=== PATIENT | male | born 1940 | race Caucasian/White ===

== ENCOUNTER → 2017-11-24 | Outpatient (CLI) | payer OTHER ==
[~2017-11-24] MED LIST: ASPI81TA28 PO; BISA1TAB15 PO; CETI10TA84 PO; CHOL100010 PO; DIPH-437 PO; NRV/10 PO; OXYC-57 PO; PRLSR20 PO; SPR25 PO; TRIA1SPR2 NAE; VALS160T58 PO; VITA100C4 PO
[2017-11-28 02:23] LABS: ANA SCREEN TC 249X POSITIVE (NEGATIVE); ANTI-SS-A <1.0 NEG AI (<1.0 NEG); ANTI-SS-B <1.0 NEG AI (<1.0 NEG); ANTICARDIOLIPID AB IGA <11 APL (< = 11); COMPLEMENT C3 TC 44859W 117 MG/DL (90-180); COMPLEMENT C4 TC 44982E 23 MG/DL (16-47); MICROSOMAL AB <1 IU/ML (<9)
[2017-11-28 14:51] LABS: ANA TITER > OR = 1:1280 TITER (<1:40)
== END | disposition home or self-care (01) ==
LOC: C.LAB1850 11:51
PROVIDERS: ATTEND Internal Medicine Infectious Disease
DX: M13.0 Polyarthritis, unspecified (principal)

== ENCOUNTER 2019-06-02 07:14 | Inpatient (IN) ==
--- NOTE | 2019-05-05 16:16 | PAT Medication Instructions ---
Medication Instructions Date of Service May 05, 2019 Home Medications acetaminophen [Tylenol Arthritis Pain] 650 mg PO Q12H PRN aspirin 81 mg PO 2XWK cetirizine [Zyrtec] 5 mg PO DAILY PRN cholecalciferol (vitamin D3) [Vitamin D3] 1,000 unit PO QAM ferrous sulfate [iron] 325 mg PO QAM hydrochlorothiazide 12.5 mg PO QAM losartan [Cozaar] 50 mg PO QAM oxycodone-acetaminophen [Percocet] 1 tab PO Q6H PRN triamcinolone acetonide [Nasacort] 1 spray INTRANASAL DAILY PRN turmeric 400 mg PO QAM vitamin A-vitamin C-vit E-min [Vision] 1 tab PO QAM ASK your prescriber and surgeon aspirin 81 mg PO 2XWK STOP taking 2 weeks before surgery (or as soon as possible if surgery is within 2 weeks) turmeric 400 mg PO QAM vitamin A-vitamin C-vit E-min [Vision] 1 tab PO QAM DO NOT take the morning of surgery cetirizine [Zyrtec] 5 mg PO DAILY PRN cholecalciferol (vitamin D3) [Vitamin D3] 1,000 unit PO QAM ferrous sulfate [iron] 325 mg PO QAM hydrochlorothiazide 12.5 mg PO QAM losartan [Cozaar] 50 mg PO QAM Take morning of surgery With a small sip of water, OTHERWISE NOTHING TO EAT OR DRINK AFTER MIDNIGHT: acetaminophen [Tylenol Arthritis Pain] 650 mg PO Q12H PRN (okay to take up to 4 hours prior to surgery if needed) oxycodone-acetaminophen [Percocet] 1 tab PO Q6H PRN (okay to take up to 4 hours prior to surgery if needed) triamcinolone acetonide [Nasacort] 1 spray INTRANASAL DAILY PRN (if needed) Take evening before surgery acetaminophen [Tylenol Arthritis Pain] 650 mg PO Q12H PRN (if needed) cetirizine [Zyrtec] 5 mg PO DAILY PRN (if needed) oxycodone-acetaminophen [Percocet] 1 tab PO Q6H PRN (if needed) triamcinolone acetonide [Nasacort] 1 spray INTRANASAL DAILY PRN(if needed) Other Notes If you have any questions please call us at [phone] or [phone] or [phone] or [phone]
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
[2019-05-06 13:17] LABS: Appearance Urine Clear (Clear); Bilirubin Urine Negative (Negative); Blood Urine Negative (Negative); Color Urine Yellow; Glucose Urine UA Negative (Negative); Ketones Urine Trace (Negative); Leukocyte Esterase Urine Negative (Negative); Nitrite Urine Negative (Negative); Protein Urine Negative (Negative); Specific Gravity Urine 1.022 (1.000-1.030); Urobilinogen Urine Negative (Negative); pH Urine 5.5 (4.5-7.5)
[2019-05-06 13:25] LABS: Albumin Level 3.8 gm/dl (3.4-5.0); BUN Creatinine Ratio 13.6 (10-20); Calcium 8.7 mg/dl (8.5-10.1); Creatinine Clr Calc Pharmacy 44.2 ml/min; Est GFR (African American) 53.2; Est GFR (Non-African American) 45.9; Potassium 3.7 mmol/L (3.5-5.1)
[2019-05-06 13:29] LABS: INR 1.1 (0.9-1.1); Partial Thromboplastin Time 26.2 Seconds (21.0-31.0); Prothrombin Time 10.8 Seconds (9.0-12.0)
--- NOTE | 2019-05-06 13:29 | XRay Report ---
TWO VIEW CHEST CLINICAL HISTORY: Preoperative examination. FINDINGS: PA and lateral chest radiographs are compared to study dated 06/05/2011 and correlated with chest CT dated 12/01/2014. The heart is mildly enlarged noting atherosclerotic calcification of the th oracic aorta. The pulmonary vasculature is noncongested. Chronic interstitial thickening is similar t o previous. There are foci of scarring/atelectasis present bilaterally. No airspace consolidation is seen typical for pneumonia and there is no pleural effusion. There is no pneumothorax. The skeletal s tructures are osteopenic. There are numerous healed left-sided rib fractures. Advanced degenerative c hange is noted in the shoulders. Arthritic change is also seen in the thoracic spine. A bone island i s again noted in the left 2nd rib. There are numerous tiny metallic foreign bodies scattered througho ut the lower neck and chest. IMPRESSION: 1. Cardiomegaly and chronic parenchymal changes as above with no acute cardiopulmonary abnormality id entified. 2. Numerous tiny metallic foreign bodies are again seen scattered throughout the chest and lower neck . Electronically signed by: Meet Heaton M.D. 05/06/2019 1:28 PM
[2019-05-06 13:34] LABS: Estimated Average Glucose 131 mg/dl; Hemoglobin A1C 6.2 % (4.5-5.6)
[2019-05-06 14:10] LABS: Hematocrit (blood only) 38.8 % (42-52); Hemoglobin 11.5 g/dL (14.0-18.0); Mean Corpuscular Hemoglobin 30.2 pg (25-34); Mean Corpuscular Hgb Conc 29.6 g/dL (32-36); Mean Corpuscular Volume 101.8 fL (80-100); Mean Platelet Volume 9.3 fL (7.4-10.4); Platelet Count 185 K/uL (130-400); RDW Coefficient of Variation 15.3 % (11.5-14.5); RDW Standard Deviation 52.4 fL (36.4-46.3); Red Blood Count 3.81 M/uL (4.7-6.1); White Blood Count 194.06 K/uL (4.8-10.8)
[2019-05-06 14:12] LABS: Basophils # (auto) 0.72 K/uL (0-0.2); Basophils % (auto) 0.4 %; Eosinophils # (auto) 0.12 K/uL (0-0.5); Eosinophils % (auto) 0.1 %; Immature Granulocytes # (auto) 0.14 K/uL (0.00-0.02); Immature Granulocytes % (auto) 0.1 %; Lymphocytes # (auto) 187.37 K/uL (1.2-3.4); Lymphocytes % (auto) 96.6 %; Monocytes % (auto) 1.7 %; Neutrophils # (auto) 2.41 K/uL (1.4-6.5); Neutrophils % (auto) 1.1 %
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
--- NOTE | 2019-06-01 19:12 | History and Physical Report ---
DATE OF ADMISSION: 06/02/2019 CHIEF COMPLAINT: Chronic left shoulder pain. HISTORY OF PRESENT ILLNESS: This is a 79-year-old male patient of Dr. Guzman'annie complaining of chronic left shoulder pain, longstanding, now progressively getting worse. The patient has failed conservative treatment including pain management, intraarticular injections, physical therapy and [id number] medications. He has been diagnosed with end-stage osteoarthritis per clinical and radiographic exams. The patient wished to proceed with a left total shoulder arthroplasty. PAST MEDICAL HISTORY: Heart murmur, hypertension, history of a TIA, abnormal bleeding, osteoarthritis, spine problems, neck problems, upper back problems, sciatica, kidney stones, chronic lymphocytic leukemia. SOCIAL HISTORY: Nonsmoker, occasional drinker. FAMILY HISTORY: Noncontributory. PAST SURGICAL HISTORY: Back surgery, appendectomy, left leg surgery and deviated septum surgery. REVIEW OF SYSTEMS: Chronic left shoulder pain. Otherwise, denies any shortness of breath, chest pain, nausea, vomiting or any other joint complaints. MEDICATIONS: Aspirin 81 mg daily, Norvasc 10 mg daily, Nasacort 55 mcg nasal spray once daily in each nostril, Tylenol as needed. ALLERGIES: LEVAQUIN, PENICILLIN, ZOCOR. PHYSICAL EXAMINATION: GENERAL: Well-developed, well-nourished 79-year-old male in no acute distress. He is alert and oriented x3 and pleasant. HEENT: Normocephalic, atraumatic. Extraocular motions are intact. Pupils are equal and reactive to light. HEART: Regular rate with irregular rhythm. LUNGS: Clear. ABDOMEN: Soft and nontender. Bowel sounds present. EXTREMITIES: Left shoulder active range of motion 0-120, passively to 140. He has crepitation with passive range of motion. He has 5/5 strength with pain. NEUROLOGIC: Neurovascularly he is intact in his left upper extremity. DIAGNOSES: Left shoulder end-stage osteoarthritis, heart murmur, hypertension, history of a mini stroke, abnormal bleeding, kidney stones, chronic lymphocytic leukemia, osteoarthritis, spine problems, neck problems, upper back problems, sciatica. PLAN: The patient was advised of his diagnosis. Indications, risks, benefits, postop course have all been reviewed. The patient wished to proceed with a left total shoulder arthroplasty. Necessary consent forms, preoperative testing and clearances will be obtained.
[~2019-06-02 07:14] MED LIST changes: +ACETAMINOPHEN 500 MG TAB PO SCH; -ASPI81TA28 PO; -BISA1TAB15 PO; -CETI10TA84 PO; -CHOL100010 PO; +CeleBREX 200 MG CAP PO SCH; -DIPH-437 PO; +FAMOTIDINE 20 MG TAB PO SCH; +GABAPENTIN 300 MG CAP PO SCH; +LR 15ML/HR IV SCH; +METOCLOPRAMIDE HCL 10 MG TABLET PO SCH; -NRV/10 PO; -OXYC-57 PO; -PRLSR20 PO; +ROPIVACAINE 0.5% 5 MG/ML 30 ML VIAL ONE; -SPR25 PO; -TRIA1SPR2 NAE; -VALS160T58 PO; +VANCOMYCIN HCL 1,500 MG in SODIUM CHLORIDE 0.9% 500 ML IV SCH; -VITA100C4 PO; +dexAMETHasone 4 MG TAB PO SCH
[2019-06-02] MEDS ORDERED: MIDAZOLAM HCL 1 MG/ML 2ML VIAL ONE (08:18)
[2019-06-02] MEDS ORDERED: PROPOFOL IV EMULSION 10 MG/ML 20 ML VIAL IV ONE (08:18)
[2019-06-02] MEDS ORDERED: LIDOCAINE HCL 2% 2 ML VIAL/AMP(20MG/ML) INFIL ONE (08:18)
[2019-06-02] MEDS ORDERED: fentaNYL citrate 100 MCG/2 ML VIAL ONE (08:18)
[2019-06-02] MEDS ORDERED: ONDANSETRON INJ 2 MG/ML 2 ML VIAL ONE (08:18)
[2019-06-02] MEDS ORDERED: ROCURONIUM BROMIDE 10 MG/ML 5 ML VIAL ONE (08:18)
[2019-06-02] MEDS ORDERED: fentaNYL citrate 100 MCG/2 ML VIAL IV PRN (08:47)
[2019-06-02] MEDS ORDERED: ONDANSETRON INJ 2 MG/ML 2 ML VIAL IV PRN ×2 (08:47→14:38)
[2019-06-02] MEDS ORDERED: ATROPINE SULFATE 0.1 MG/ML 10ML SYR IV PRN (08:47)
[2019-06-02] MEDS ORDERED: ePHEDrine sulfate 50 MG/ML AMP IV PRN (08:47)
--- NOTE | 2019-06-02 09:13 | History & Physical Bridge Note ---
Date of Service June 02, 2019 History & Physical Bridge Note I have examined the patient, reviewed the History & Physical and in the interval since the performance of the History & Physical I have noted the following changes of clinical significance: no changes noted
[2019-06-02] MEDS ORDERED: BACITRACIN INJ 50,000 UNIT VIAL ONE (09:25)
[2019-06-02] MEDS ORDERED: EpINEphrine HCL INJ 1 MG/ML 1ML SYRINGE ONE (09:25)
--- NOTE | 2019-06-02 13:15 | Post Operative Brief Note ---
Immediate Post Op Note v1 Date of Surgery June 02, 2019 Pre & Post Diagnosis Operation Date: 06/02/19 10:05 Pre-Op Diagnosis: Glenohumeral osteoarthritis end-stage with bone loss glenoid, Left Shoulder Post-Op Diagnosis: Same with biceps tendinopathy bicipital groove bone spurs I identified the patient and participated in the time-out.: Yes Procedure Operation Date: 06/02/19 10:05 Actual Procedures Left Total Shoulder Arthroplasty, biceps tenodesis- Augustus Guzman MD Surgeon Augustus Guzman MD High Heel Builder Cj SMITH Estimated Blood Loss 75 Findings Consistent with Post-Op Diagnosis Specimens Humeral head cut Drains Hemovac Drain Anesthesia Type General Regional Complications none Disposition Accompanied Patient To Recovery: No Disposition: Recovery Room Overlapping Procedure I was immediately available: during the entire case.
--- NOTE | 2019-06-02 13:56 | Operative Report ---
Post Operative Report Pre & Post Diagnosis Operation Date: 06/02/19 10:05 Pre-Op Diagnosis: Left shoulder end-stage glenohumeral osteoarthritis with bone loss glenoid Post-Op Diagnosis: Same with biceps tendinopathy bicipital groove bone spurs I identified the patient and participated in the time-out.: Yes Procedure Operation Date: 06/02/19 10:05 Actual Procedures Left Total Shoulder Arthroplasty, biceps tenodesis- Augustus Guzman MD Surgeon Augustus Guzman MD Knuckle Strap Sewer Cj SMITH Estimated Blood Loss 75 Findings Consistent with Post-Op Diagnosis Specimens Humeral head cut Drains 2 Hemovac Anesthesia Type General Regional Complications none Disposition Accompanied Patient To Recovery: No Disposition: Recovery Room Indications 79-year-old male with severe bilateral shoulder osteoarthritis. Left shoulder greater than right. Radiographs demonstrate significant bone loss glenoid with B2 glenoid and large osteophytes humeral head and glenoid intact rotator cuff per CT scan. Description of Procedure The patient was taken to the operating room and anesthetized under a general and regional block anesthesia. A towel roll was placed under the medial border of the scapula of the left shoulder. The patient's head was placed on a foam headrest and protective eyewear was placed and the extremities were well padded. The arm was draped free in order to manipulate the shoulder as necessary. The shoulder exam demonstrated 0 degrees external rotation 45 degrees of abduction 90 degrees forward elevation [id number] crepitation. The shoulder was sterilely prepped and draped in the usual sterile fashion. An anterior deltopectoral approach was performed. A longitudinal incision was made in the interval. The skin was incised sharply and subcutaneous tissues dissected down to the fascia. The cephalic vein was identified and retracted laterally with the deltoid. Any crossing veins were tied off with silk ties and divided. The clavipectoral fascia was divided at the lateral margin of the conjoined tendon and divided up to the level of the coracoacromial ligament which was preserved. The upper 1 cm of the pectoralis was released for inferior exposure. The biceps tendon findings demonstrated chronic biceps tenosynovitis there was a large thick falciform ligament over the biceps. Proximally there was bicipital bones spurs in the bicipital groove enveloping the biceps tendon and intra-articularly widened biceps tendon with tendinopathy. The rotator cuff tendon findings demonstrated intact rotator cuff. The circumflex vessels were identified and tied off with silk ties and divided laterally. The fibers and subscapularis were split longitudinally at the level of the circumflex vessels down to the capsule and then reflected off the inferior capsule using a Kitner elevator. The axillary nerve was identified with a tug test and protected with a blunt Gabriella retractor. The rotator interval was opened up and extended down to the glenoid. The biceps tendon was identified and tenodesed to the pectoralis tendon with [id number] #2 FiberWire sutures in the proximal biceps was resected. The subscapularis tendon was taken down with a trans-tendinous incision leaving a cuff of tissue for repair on the lesser tuberosity. The incision was carried down to the tendon and the capsule and a #1 Vicryl suture was placed into the free end of the subscapularis tendon. The capsule was subperiosteally dissected off the inferior neck of the humerus exposing the mateusz ral osteophytes which demonstrated massive inferior humeral osteophytes extending from anterior to posterior also some superior osteophytes. The osteophytes were excised with an artist chisel and a rongeur. The capsular release along the inferior neck of the humerus was completed. The humerus was then retracted posterior to the glenoid with a Fukuda retractor. The remainder of the biceps tendon and labrum was resected. The glenoid findings demonstrated marked flattening of the glenoid completely eburnated bone posterior bone loss consistent with CT scan preop. I did an anterior inferior and posterior inferior release with electrocautery on bone and a Warren elevator with the axillary nerve continuing to be protected with the blunt Hohmann retractor inferiorly. When the releases were completed and the humeral head was exposed with some extension and external rotation and in anatomic head cut was made using the oscillating saw. The humeral head findings demonstrated flattening of the humeral head with some bone loss. The humerus was then prepared for the stem. I used the ascend flex stem. Sizing broaches up to a size 5 were placed and then broaches up to a size 5 were inserted followed by a cut protector. The humeral head was then retracted posterior to the glenoid with Hohmann retractors and Bankart retractor placed anteriorly. The custom guide made by blueprint CT scan imaging was placed on the glenoid matching the placement on the model. The central drill pin was drilled. The reamers were used to ream the Paleo and milan- glenoid. 35 degree wedge was used posteriorly to accommodate the bone loss. The peripheral peg holes were made to the guide and the central drill hole was made. Trial reduction demonstrated good stability of the trial. The glenoid was copiously irrigated and epinephrine soaked tampon sponges were placed into the holes. Palacos G cement was vacuum mixed. The extra-large 40 radius 35 degree augmented left Cortiloc perform glenoid component was then cemented in position central peg press-fit peripheral pegs cemented backside cemented. Pressure was held until the cement cured. A size 52 x 23 high offset trial humeral head was then used. It was rotated into appropriate position. A trial reduction was performed and the shoulder was stable. The trial was removed and the humerus and canal were irrigated with antibiotic solution with bacitracin. 3 drill holes were made into the hard bone in the bicipital groove lateral to the lesser tuberosity and 3 #5 FiberWire transosseous sutures were placed for repair of the subscapularis. After further irrigation of the canal and the final components were assembled. The final components were the ascend flex standard 5B humeral stem assembled to the aequalis 52 x 23 high offset humeral head. The implant was then impacted into the humerus with a tight press-fit. The humerus was reduced to the glenoid and stability verified. The subscapularis was repaired with the #5 FiberWire sutures in a Branden-Daniel suture technique and lateral row fixation with [id number] #2 FiberWire in the soft tissue. The rotator interval was closed and maximal external rotation. The pectoralis was then closed with [id number] #2 FiberWire suture. Sutures were passed through the biceps tendon to reinforce the biceps tenodesis. The arm was taken through range of motion and there was 100 degrees of forward elevation 90 degrees of abduction and 20 degrees external rotation without tension on repair. 2 Hemovac drains were placed. The deltopectoral interval was closed with [id number] #1 Vicryl sutures. The subcutaneous tissues were closed with interrupted 2-0 Vicryl and the skin was closed with juan manuel and a sterile dressing was applied. The patient tolerated the procedure well. Cj SMITH my physician hair assistant, assisted in soft tissue retraction instrument management suture management and assisted in the subcutaneous and skin closure and will participate in the postoperative care the patient. I attest to the content of the Intraoperative Record and any orders documented therein. Any exceptions are noted below.
--- NOTE | 2019-06-02 14:15 | XRay Report ---
XR shoulder LT min 2V routine CLINICAL HISTORY: Post shoulder surgery COMPARISON: None. DISCUSSION: There are postsurgical changes of a total left shoulder arthroplasty. There is soft tissu e air consistent with recent surgery. There is no dislocation. There are multiple tiny metallic densi ties projected over the thorax and neck. The heart is enlarged. There is left basilar atelectasis/con solidation. There is no evidence for soft tissue swelling. IMPRESSION: Postsurgical changes of a total left shoulder arthroplasty. No evidence of dislocation. Electronically signed by: Rajat Jaimes M.D. 06/02/2019 2:14 PM
[2019-06-02] MEDS ORDERED: bisacodyL 10 MG SUPP PR PRN (14:38)
[2019-06-02] MEDS ORDERED: NALOXONE HCL 0.4 MG/1 ML VIAL/CARP IV PRN (14:38)
[2019-06-02] MEDS ORDERED: MAGNESIUM HYDROXIDE SUSP 30 ML UDC PO PRN (14:38)
[2019-06-02] MEDS ORDERED: VANCOMYCIN CONSULT ACTIVE PRN (14:38)
[2019-06-02] MEDS ORDERED: CETIRIZINE HCL 10 MG TABLET PO PRN (14:38)
[2019-06-02] MEDS ORDERED: TRIAMCINOLONE ACET NASAL SPRAY 10.8ML BTL PRN (14:38)
[2019-06-02] MEDS ORDERED: LACTULOSE SYRUP 20 GM/30 ML UDC PO SCH (15:00)
--- NOTE | 2019-06-02 15:29 | Anesthesiology Progress Note ---
Date of Service June 02, 2019 Anesthesia Post Procedure Vital Signs Vital Signs: Temp Pulse Pulse Pulse Resp BP Pulse Ox 06/02/19 15:09 97.7 F 100 H 18 146/66 H 95 06/02/19 14:30 98.8 F 87 18 160/64 H 96 06/02/19 14:07 97.2 F L 24 L 18 149/78 H 94 06/02/19 13:56 90 18 137/82 93 06/02/19 13:47 90 20 139/77 93 06/02/19 13:35 87 19 153/73 H 94 06/02/19 13:25 97.2 F L 90 19 151/71 H 94 06/02/19 08:01 97.9 F 57 L 20 156/86 H 96 Pain Intensity Left Shoulder: Pain Intensity: 0 Transfer of Care Handoff Completed per policy Notes Mental Status: alert / awake / arousable and participated in evaluation Patient Amnestic to Procedure: Yes Nausea / Vomiting: adequately controlled Pain: adequately controlled Airway Patency, RR, SpO2: stable & adequate BP & HR: stable & adequate Hydration State: stable & adequate Anesthetic Complications: no major complications apparent and Pt Satisfied with anesthetic care
[2019-06-02] MEDS ORDERED: LACTULOSE SYRUP 20 GM/30 ML UDC PO PRN (15:54)
[2019-06-02] MEDS: SODIUM CHLORIDE 0.9% 1000ML 1,000 ML IV SCH (16:01)
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
[2019-06-02] MEDS: ACETAMINOPHEN 500 MG TAB PO SCH ×2 (16:07→21:29)
[2019-06-02] MEDS ORDERED: VANCOMYCIN HCL 1,500 MG in SODIUM CHLORIDE 0.9% 500 ML IV SCH (20:00)
[2019-06-02] MEDS: SENNA 8.6 MG TAB PO SCH (20:08)
[2019-06-02] MEDS: DOCUSATE SODIUM 100 MG CAP PO SCH (20:08)
[2019-06-03] MEDS: HYDROmorphone INJ 0.5 MG/0.5 ML SYR IV PRN ×2 (01:18→12:29)
[2019-06-03] MEDS: OXYCODONE HCL IR 5 MG TAB (IMMEDIATE RELEASE) PO PRN ×4 (02:55→17:23)
[2019-06-03] MEDS: SODIUM CHLORIDE 0.9% 1000ML 1,000 ML IV SCH (04:45)
[2019-06-03] MEDS: ACETAMINOPHEN 500 MG TAB PO SCH ×3 (05:53→21:31)
[2019-06-03 06:05] LABS: Albumin Level 3.5 gm/dl (3.4-5.0); BUN Creatinine Ratio 15.3 (10-20); Calcium 8.1 mg/dl (8.5-10.1); Est GFR (Non-African American) 34.6; Potassium 3.9 mmol/L (3.5-5.1)
[2019-06-03 06:07] LABS: Hematocrit (blood only) 32.5 % (42-52); Hemoglobin 9.5 g/dL (14.0-18.0); Mean Corpuscular Hemoglobin 29.9 pg (25-34); Mean Corpuscular Hgb Conc 29.2 g/dL (32-36); Mean Corpuscular Volume 102.2 fL (80-100); Platelet Count 177 K/uL (130-400); RDW Coefficient of Variation 16.6 % (11.5-14.5); RDW Standard Deviation 53.3 fL (36.4-46.3); Red Blood Count 3.18 M/uL (4.7-6.1); White Blood Count 242.52 K/uL (4.8-10.8)
[2019-06-03 06:08] LABS: Albumin Globulin Ratio 1.3 (0.9-2); Bilirubin,Total 0.6 mg/dl (0.2-1); Globulin 2.7 gm/dl (2.5-4.0); Total Protein 6.2 gm/dl (6.4-8.2)
[2019-06-03 06:36] LABS: Basophils # (auto) 0.82 K/uL (0-0.2); Basophils % (auto) 0.3 %; Immature Granulocytes # (auto) 0.45 K/uL (0.00-0.02); Immature Granulocytes % (auto) 0.2 %; Lymphocytes # (auto) 229.68 K/uL (1.2-3.4); Lymphocytes % (auto) 94.7 %; Monocytes # (auto) 4.01 K/uL (0.11-0.59); Monocytes % (auto) 1.7 %; Neutrophils # (auto) 7.56 K/uL (1.4-6.5); Neutrophils % (auto) 3.1 %; Smudge Cells Present
[2019-06-03] MEDS: LOSARTAN POTASSIUM 50 MG TAB PO SCH (08:05)
[2019-06-03] MEDS: MULTIVITAMIN TAB PO SCH (08:05)
[2019-06-03] MEDS: DOCUSATE SODIUM 100 MG CAP PO SCH ×2 (08:05→21:31)
[2019-06-03] MEDS ORDERED: AMLODIPINE BESYLATE 5 MG TAB PO SCH (09:00)
[2019-06-03] MEDS ORDERED: hydroCHLOROthiazide 25 MG TAB PO SCH (09:00)
--- NOTE | 2019-06-03 10:16 | Hospitalist Progress Note ---
Date of Service June 03, 2019 Assessment & Plan (1) Status post reverse arthroplasty of left shoulder: - POD# 1 s/p left TSA today by Dr. Guzman - activity and wound care orders as per ortho - pain control with bowel regimen - PT/OT - Hgb stable at 9.5 (from 11.5 yesterday). Continue monitoring (2) HTN (hypertension): BP controlled, continue HCTZ and Losartan (3) Chronic lymphocytic leukemia: Baseline WBC ~ 200K in setting of CLL -CBC today with increased leukocytosis of 242.5, likely reactive to surgery -Afebrile. Monitor closely for signs of infection -Daily CBC with differential (4) Aortic stenosis: Moderate per recent NICOLE -Euvolemic volume status today -IV fluids have been discontinued (5) CKD (chronic kidney disease), stage III: Baseline creat runs in the low-mid 1's -Continue to monitor renal functions, avoid nephrotoxic agents when able (6) History of CVA (cerebrovascular accident): Continue ASA -intolerant to statins (7) DVT prophylaxis: -TEDs/SCDs per ortho Patient seen in collaboration with Dr. Hernadez. Please see addendum. Thank you for this consultation. We will follow the patient with you during their hospital stay. You can reach a member of the [facility] Hospitalist Team 24/02 via pager @ [phone]. Supervising Physician Co-Signing Physician Notes 79 year old man with left shoulder osteoarthritis who had left total shoulder arthroplasty and biceps tenodesis yesterday Patient seen and examined. Reports his pain is well controlled except after physical therapy Physical exam General - No distress HEENT -Normal eyes, ears, nose and oropharynx Lungs - Clear to auscultation bilaterally, no crackles or wheeze Heart - Normal rate, rhythm, MONI, no pedal edema MSK - Left shoudler/arm in sling with left shoulder dressing and wound vac in place Neuro - AOx3, no focal deficits Abdomen - soft, nontender, normal bowel sounds Psych - Aox3, euthymic affect/mood Will continue pain management Continue bowel regimen Continue PT/OT Wound vac management per ortho On xarelto to start today per ortho for DVT ppx Hb drop likely due to acute blood loss due to surgery. Will monitor. Has chronic leukocytosis due to CLL. Will monitor for now. Patient will continue follow up with Heme outpatient Will continue to follow while inpatient Subjective Patient seen and examined in 304-1. Feeling well today with minimal surgical site pain. Denies any numbness or paresthesias in left upper extremity. No fever, chills, lightheadedness, visual changes, chest pain or shortness of breath. Tolerated breakfast well without nausea, vomiting or abdominal pain. Urinating without issue. Not passing flatus or BM yet. Review of Systems Review of Systems: At least ten systems reviewed and negative except as noted in the HPI. Physical Exam Physical Exam: General Appearance: WD/WN, vitals as above, NAD, sitting up in bedside chair, pleasant, conversing easily Head: normocephalic, atraumatic Eyes: normal inspection, PERRL, conjunctivae normal, anicteric sclerae ENT: external ear and nose normal, oropharynx normal Neck: trachea midline, no thyromegaly normal visual inspection Respiratory: lungs clear to auscultation, no wheeze, rales, rhonchi. Normal insp/exp effort, no accessory muscle use Cardiovascular: regular rate, rhythm, + 2/6 systolic murmur, normal peripheral pulses Chest: normal inspection of chest Abdomen/GI: normal bowel sounds, soft, nontender, no hepatosplenomegaly Extremities/Musculoskelatal: no cyanosis or clubbing, extremities motor strength 5/5. + L shoulder with surgical dressing clean, dry, intact. Drain in place Neurologic: PERRL, CN's II-XI intact bilaterally and moves all extremities Psychiatric: A+Ox3, euthymic affect Skin: no rashes, normal color, warm/dry Results & Data Vital Signs (Past 12 Hours) Vital Signs Temp Pulse Pulse Resp BP Pulse Ox 06/03/19 07:52 36.6 C 67 17 116/55 L 96 06/03/19 03:25 36.9 C 61 18 113/63 93 06/02/19 23:10 36.5 C 79 16 110/64 93 Laboratory Results Short CBC 06/03/19 Range/Units 04:32 WBC 242.52 H* (4.8-10.8) K/uL Hgb 9.5 L (14.0-18.0) g/dL Hct 32.5 L (42-52) % Plt Count 177 (130-400) K/uL BMP 06/03/19 04:32 Sodium 139 Potassium 3.9 Chloride 109 H Carbon Dioxide 22 BUN 28 H Creatinine 1.82 H Glucose 157 H Calcium 8.1 L Liver Function 06/03/19 Range/Units 04:32 Total Bilirubin 0.6 (0.2-1) mg/dl AST 20 (15-37) U/L ALT 19 (12-78) U/L Alkaline Phosphatase 72 (45-117) U/L Albumin 3.5 (3.4-5.0) gm/dl
[2019-06-03] MEDS: RIVAROXABAN 10 MG TABLET PO SCH (13:17)
[2019-06-03] MEDS: SENNA 8.6 MG TAB PO SCH (21:31)
[2019-06-04] MEDS: HYDROmorphone INJ 0.5 MG/0.5 ML SYR IV PRN (00:43)
[2019-06-04 05:46] LABS: Hematocrit (blood only) 28.3 % (42-52); Hemoglobin 8.3 g/dL (14.0-18.0); Mean Corpuscular Hemoglobin 29.9 pg (25-34); Mean Corpuscular Hgb Conc 29.3 g/dL (32-36); Mean Corpuscular Volume 101.8 fL (80-100); Platelet Count 142 K/uL (130-400); RDW Coefficient of Variation 15.9 % (11.5-14.5); RDW Standard Deviation 54.3 fL (36.4-46.3); Red Blood Count 2.78 M/uL (4.7-6.1); White Blood Count 176.22 K/uL (4.8-10.8)
[2019-06-04 06:13] LABS: BUN Creatinine Ratio 15.8 (10-20); Calcium 7.7 mg/dl (8.5-10.1); Creatinine Clr Calc Pharmacy 39.8 ml/min; Est GFR (African American) 46.8; Est GFR (Non-African American) 40.4; Potassium 3.7 mmol/L (3.5-5.1)
[2019-06-04] MEDS: ACETAMINOPHEN 500 MG TAB PO SCH (06:28)
[2019-06-04] MEDS: OXYCODONE HCL IR 5 MG TAB (IMMEDIATE RELEASE) PO PRN ×2 (06:28→12:47)
[2019-06-04 06:43] LABS: Basophils # (auto) 0.42 K/uL (0-0.2); Basophils % (auto) 0.2 %; Eosinophils # (auto) 0.06 K/uL (0-0.5); Immature Granulocytes # (auto) 0.25 K/uL (0.00-0.02); Immature Granulocytes % (auto) 0.1 %; Lymphocytes # (auto) 167.66 K/uL (1.2-3.4); Lymphocytes % (auto) 95.1 %; Monocytes # (auto) 3.02 K/uL (0.11-0.59); Monocytes % (auto) 1.7 %; Neutrophils # (auto) 4.81 K/uL (1.4-6.5); Neutrophils % (auto) 2.9 %; Smudge Cells Present
[2019-06-04] MEDS: RIVAROXABAN 10 MG TABLET PO SCH (08:29)
[2019-06-04] MEDS: MULTIVITAMIN TAB PO SCH (08:29)
[2019-06-04] MEDS: LOSARTAN POTASSIUM 50 MG TAB PO SCH (08:29)
[2019-06-04] MEDS: DOCUSATE SODIUM 100 MG CAP PO SCH (08:29)
--- NOTE | 2019-06-04 09:07 | Hospitalist Progress Note ---
Date of Service June 04, 2019 Assessment & Plan (1) Status post reverse arthroplasty of left shoulder: - POD#2 s/p left TSA today by Dr. Guzman - activity and wound care orders as per ortho - pain control with bowel regimen - PT/OT - Hgb stable at 8.3 (from 9.5 yesterday). Continue monitoring (2) HTN (hypertension): BP controlled, continue HCTZ and Losartan (3) Chronic lymphocytic leukemia: Baseline WBC ~ 200K in setting of CLL -CBC downtrending from 242.5 post-op to 176 today -Follow with Dr. Yanes onc -Daily CBC with differential (4) Aortic stenosis: Moderate per recent NICOLE -Euvolemic volume status today (5) CKD (chronic kidney disease), stage III: Baseline creat runs in the low-mid 1's -Continue to monitor renal functions, avoid nephrotoxic agents when able (6) History of CVA (cerebrovascular accident): Continue ASA -intolerant to statins (7) DVT prophylaxis: -Xarelto per ortho Patient seen in collaboration with Dr. Hernadez. Please see addendum. Thank you for this consultation. We will follow the patient with you during their hospital stay. You can reach a member of the [facility] Hospitalist Team 24/02 via pager @ [phone]. Supervising Physician Co-Signing Physician Notes 79 year old man with left shoulder osteoarthritis who had left total shoulder arthroplasty and biceps tenodesis 2 days ago Patient seen and examined. Reports his pain is controlled Physical exam General - No distress HEENT -Normal eyes, ears, nose and oropharynx Lungs - Clear to auscultation bilaterally, no crackles or wheeze Heart - Normal rate, rhythm, MONI, no pedal edema MSK - Left shoudler/arm in sling with left shoulder dressing. Drain with wound vac has been removed Neuro - AOx3, no focal deficits Abdomen - soft, nontender, normal bowel sounds Psych - Aox3, euthymic affect/mood Acute hemoglobin drop likely due to surgery Need to repeat CBC on follow up with PCP or ortho within next week to monitor Hb Continue pain management Continue PT outpatient On Xarelto per primary ortho. Recommend to hold home dose aspirin while on xarelto Hb drop likely due to acute blood loss due to surgery. Will monitor. Has chronic leukocytosis due to CLL. 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 Feeling well today with minimal surgical site pain. Denies any numbness or paresthesias in left upper extremity. No fever, chills, lightheadedness, visual changes, chest pain or shortness of breath. Tolerated breakfast well without nausea, vomiting or abdominal pain. Urinating without issue. +Passing flatus, no BM yet. Review of Systems Review of Systems: At least ten systems reviewed and negative except as noted in the HPI. Physical Exam Physical Exam: General Appearance: WD/WN, vitals as above, NAD, sitting up in bedside chair, pleasant, conversing easily Head: normocephalic, atraumatic Eyes: normal inspection, PERRL, conjunctivae normal, anicteric sclerae ENT: external ear and nose normal, oropharynx normal Neck: trachea midline, no thyromegaly normal visual inspection Respiratory: lungs clear to auscultation, no wheeze, rales, rhonchi. Normal insp/exp effort, no accessory muscle use Cardiovascular: regular rate, rhythm, + 2/6 systolic murmur, normal peripheral pulses Chest: normal inspection of chest Abdomen/GI: normal bowel sounds, soft, nontender, no hepatosplenomegaly Extremities/Musculoskelatal: no cyanosis or clubbing. + L shoulder with surgical dressing clean, dry, intact. Drain has been removed Neurologic: PERRL, CN's II-XI intact bilaterally and moves all extremities Psychiatric: A+Ox3, euthymic affect Skin: no rashes, normal color, warm/dry Results & Data Vital Signs (Past 12 Hours) Vital Signs Temp Pulse Pulse Resp BP Pulse Ox 06/04/19 07:27 37.2 C 67 17 153/69 H 94 06/03/19 22:55 37.2 C 70 16 132/57 L 94 Laboratory Results Short CBC 06/04/19 Range/Units 04:35 WBC 176.22 H* (4.8-10.8) K/uL Hgb 8.3 L (14.0-18.0) g/dL Hct 28.3 L (42-52) % Plt Count 142 (130-400) K/uL BMP 06/04/19 04:35 Sodium 138 Potassium 3.7 Chloride 108 H Carbon Dioxide 24 BUN 25 H Creatinine 1.60 H Glucose 106 H Calcium 7.7 L
--- NOTE | 2019-06-04 10:41 | Orthopedic Progress Note ---
Date of Service June 04, 2019 Assessment & Plan (1) Status post reverse arthroplasty of left shoulder: Postop day 2 status post left reverse total shoulder replacement. Acute blood loss anemia. History of CLL Continue PT OT protocols today. Patient remaining asymptomatic with drop in he moglobin. WBC count was 176 this morning. Patient was very satisfied with that. He apparently remains in the 200 range. BUN and creatinine are trending down. Plan for discharge to home today if okay with medicine service. Subjective Patient currently sitting at the bedside chair eating breakfast. States he has some pain control issues last night but is much better this morning. No other complaints at this time. Denies shortness of breath, chest pain, lightheadedness. He is hoping to go home today Physical Exam Physical Exam: Dressings are clean, dry, intact. Hemovac has been removed. [place] is noticed of the arm and he does have some ecchymosis noted distally. He has good range of motion of his left wrist and fingers and sensation is intact. Capillary refill is less than 2 seconds. Results & Data Vital Signs (Past 12 Hours) Vital Signs Temp Pulse Pulse Resp BP Pulse Ox 06/04/19 07:27 37.2 C 67 17 153/69 H 94 06/03/19 22:55 37.2 C 70 16 132/57 L 94 Laboratory Results Laboratory Results WBC 176.22 K/uL (4.8-10.8) H* 06/04/19 04:35 RBC 2.78 M/uL (4.7-6.1) L 06/04/19 04:35 Hgb 8.3 g/dL (14.0-18.0) L 06/04/19 04:35 Hct 28.3 % (42-52) L 06/04/19 04:35 MCV 101.8 fL (80-100) H 06/04/19 04:35 MCH 29.9 pg (25-34) 06/04/19 04:35 MCHC 29.3 g/dL (32-36) L 06/04/19 04:35 RDW Std Deviation 54.3 fL (36.4-46.3) H 06/04/19 04:35 RDW Coeff of Lila 15.9 % (11.5-14.5) H 06/04/19 04:35 Plt Count 142 K/uL (130-400) 06/04/19 04:35 MPV 9.0 fL (7.4-10.4) 06/04/19 04:35 Immature Gran % (Auto) 0.1 % 06/04/19 04:35 Neut % (Auto) 2.9 % 06/04/19 04:35 Lymph % (Auto) 95.1 % 06/04/19 04:35 [place] % (Auto) 1.7 % 06/04/19 04:35 Eos % (Auto) 0.0 % 06/04/19 04:35 Baso % (Auto) 0.2 % 06/04/19 04:35 Immature Gran # (Auto) 0.25 K/uL (0.00-0.02) H 06/04/19 04:35 Neut # (Auto) 4.81 K/uL (1.4-6.5) 06/04/19 04:35 Lymph # (Auto) 167.66 K/uL (1.2-3.4) H 06/04/19 04:35 [place] # (Auto) 3.02 K/uL (0.11-0.59) H 06/04/19 04:35 Eos # (Auto) 0.06 K/uL (0-0.5) 06/04/19 04:35 Baso # (Auto) 0.42 K/uL (0-0.2) H 06/04/19 04:35 Smudge Cells Present 06/04/19 04:35 PT 10.8 Seconds (9.0-12.0) 05/06/19 12:27 INR 1.1 (0.9-1.1) 05/06/19 12:27 APTT 26.2 Seconds (21.0-31.0) 05/06/19 12:27 PTT Ratio 1.0 05/06/19 12:27 Sodium 138 mmol/L (136-145) 06/04/19 04:35 Potassium 3.7 mmol/L (3.5-5.1) 06/04/19 04:35 Chloride 108 mmol/L (98-107) H 06/04/19 04:35 Carbon Dioxide 24 mmol/L (21-32) 06/04/19 04:35 Anion Gap 7.0 (3-11) 06/04/19 04:35 BUN 25 mg/dl (7-18) H 06/04/19 04:35 Creatinine 1.60 mg/dl (0.6-1.4) H 06/04/19 04:35 Est Cr Clr Drug Dosing 39.8 ml/min 06/04/19 04:35 Est GFR ( Amer) 46.8 06/04/19 04:35 Est GFR (Non-Af Amer) 40.4 06/04/19 04:35 BUN/Creatinine Ratio 15.8 (10-20) 06/04/19 04:35 Glucose 106 mg/dl (70-99) H 06/04/19 04:35 Estimat Average Glucose 131 mg/dl 05/06/19 12:27 Hemoglobin A1c 6.2 % (4.5-5.6) H 05/06/19 12:27 Calcium 7.7 mg/dl (8.5-10.1) L 06/04/19 04:35 Total Bilirubin 0.6 mg/dl (0.2-1) 06/03/19 04:32 AST 20 U/L (15-37) 06/03/19 04:32 ALT 19 U/L (12-78) 06/03/19 04:32 Alkaline Phosphatase 72 U/L (45-117) 06/03/19 04:32 Total Protein 6.2 gm/dl (6.4-8.2) L 06/03/19 04:32 Albumin 3.5 gm/dl (3.4-5.0) 06/03/19 04:32 Globulin 2.7 gm/dl (2.5-4.0) 06/03/19 04:32 Albumin/Globulin Ratio 1.3 (0.9-2) 06/03/19 04:32 Urine Color Yellow 05/06/19 12:27 Urine Appearance Clear (Clear) 05/06/19 12:27 Urine pH 5.5 (4.5-7.5) 05/06/19 12:27 Ur Specific [place] 1.022 (1.000-1.030) 05/06/19 12:27 Urine Protein Negative (Negative) 05/06/19 12:27 Urine Glucose (UA) Negative (Negative) 05/06/19 12:27 Urine Ketones Trace (Negative) H 05/06/19 12:27 Urine Blood Negative (Negative) 05/06/19 12:27 Urine Nitrite Negative (Negative) 05/06/19 12:27 Urine Bilirubin Negative (Negative) 05/06/19 12:27 Urine Urobilinogen Negative (Negative) 05/06/19 12:27 Ur Leukocyte Esterase Negative (Negative) 05/06/19 12:27 Blood Type A Positive 05/06/19 12:27 Antibody Screen NEGATIVE 05/06/19 12:27
--- NOTE | 2019-06-14 16:23 | Discharge Summary ---
This is a 79-year-old male patient of Dr. Guzman'annie complaining of chronic left shoulder pain, longstanding, now progressively getting worse. The patient failed conservative treatment and has been diagnosed with end-stage osteoarthritis per clinical and radiographic exams. The patient wished to proceed with a left total shoulder arthroplasty. PAST MEDICAL HISTORY: Heart murmur, hypertension, history of transient ischemic attack, abnormal bleeding, osteoarthritis, spine problems, neck problems, upper back problems, sciatica, kidney stones and chronic lymphocytic leukemia. POSTOPERATIVE COURSE: The patient underwent a left total shoulder arthroplasty and biceps tenodesis on 06/02/2019. He was followed closely with medical consultation, DVT prophylaxis in the form of aspirin, physical therapy and pain control. The patient did well postoperatively. His white cells ran baseline for him; no unusual spikes there concerning his leukemia. PHYSICAL EXAMINATION: On discharge, left shoulder incision was clean, dry and intact. Viet were intact. Skin edges were approximated well. There was no redness or drainage. Fingers were mobile. Sling was intact. Neurologically and neurovascularly was intact in his left upper extremity. DIAGNOSES: Status post left total shoulder arthroplasty with biceps tenodesis. He also has a history of heart murmur, hypertension, TIA, abnormal bleeding, osteoarthritis, spine problems, neck problems, upper back problems, sciatica, kidney stones and chronic lymphocytic leukemia. PLAN: The patient was discharged home with outpatient physical therapy. He will continue his preadmission medications with the addition of pain medications. He will follow up as an outpatient as scheduled.
== END 2019-06-04 13:22 | disposition home or self-care (01) | DRG 483 ==
LOC: ASU 07:14 → 3E 13:31

== ENCOUNTER 2022-01-20 11:08 | Observation (INO) ==
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
[2022-01-20 12:28] LABS: INR 1.1 (0.9-1.1); Partial Thromboplastin Time 27.4 Seconds (21.0-31.0); Prothrombin Time 11.3 Seconds (9.0-12.0)
[2022-01-20 12:31] LABS: Troponin I High Sensitivity 33.3 pg/ml (0-20)
[2022-01-20 12:33] LABS: Alanine Aminotransferase 49 U/L (7-52); Albumin Globulin Ratio 1.3 (0.9-2); Albumin Level 3.6 gm/dl (3.4-5.0); Alkaline Phosphatase 47 U/L (34-104); Anion Gap 11 (3-11); Aspartate Aminotransferase 62 U/L (13-39); BUN Creatinine Ratio 27.8 (10-20); Bilirubin,Total 0.8 mg/dl (0.2-1.0); Blood Urea Nitrogen 35 mg/dl (6-23); Calcium 8.9 mg/dl (8.5-10.1); Carbon Dioxide 23 mmol/L (21-32); Chloride 102 mmol/L (98-107); Est GFR (African American) 61.6 ml/min; Est GFR (Non-African American) 53.1 ml/min; Globulin 2.7 gm/dl (2.5-4.0); Glucose 120 mg/dl (70-99(Fasting)); Lipase 30 U/L (11-82); Potassium 3.8 mmol/L (3.5-5.1); Sodium 136 mmol/L (136-145); Total Protein 6.3 gm/dl (6.0-8.3)
[2022-01-20 12:47] LABS: D Dimer 8770 ug/L FEU (0-500); Hematocrit (blood only) 33.2 % (42-52); Hemoglobin 11.1 g/dL (14.0-18.0); Mean Corpuscular Hemoglobin 29.8 pg (25-34); Mean Corpuscular Hgb Conc 33.4 g/dL (32-36); Mean Corpuscular Volume 89.2 fL (80-100); Mean Platelet Volume 9.4 fL (7.4-10.4); Platelet Count 231 K/uL (130-400); RDW Coefficient of Variation 13.4 % (11.5-14.5); RDW Standard Deviation 43.7 fL (36.4-46.3); Red Blood Count 3.72 M/uL (4.7-6.1); White Blood Count 16.06 K/uL (4.8-10.8)
[2022-01-20 13:02] LABS: Base Excess VBG 0.1 mEq/L; Oxygen Saturation VBG 79.2 %; pH VBG 7.5 (7.36-7.41)
[2022-01-20 13:28] LABS: Basophils # (auto) 0.01 K/uL (0-0.2); Basophils % (auto) 0.1 %; Immature Granulocytes # (auto) 0.05 K/uL (0.00-0.02); Immature Granulocytes % (auto) 0.3 %; Lymphocytes # (auto) 8.17 K/uL (1.2-3.4); Lymphocytes % (auto) 50.9 %; Monocytes # (auto) 0.32 K/uL (0.11-0.59); Neutrophils # (auto) 7.51 K/uL (1.4-6.5); Neutrophils % (auto) 46.7 %; Smudge Cells Present
[2022-01-20] MEDS ORDERED: OPTIRAY 320 125ml IV ONE (13:43)
[2022-01-20] MEDS ORDERED: CEFEPIME 2,000 MG/20 ML VIAL IV STA (13:57)
--- NOTE | 2022-01-20 14:29 | CT Scan Report ---
CT angio chest PE protocol CLINICAL HISTORY: Increasing shortness of breath. Positive Covid. CLL receiving chemotherapy COMPARISON STUDY: Portable chest from 01/20/2022 CT DOSE: 674.72 mGy.cm TECHNIQUE: CT Angio of the chest was performed.followed by image post processing with coronal, and s agittal MIP reformats. Contrast Volume: Optiray 320, 120 ml FINDINGS: There is mild breathing motion artifact. Vasculature: There is homogeneous perfusion of the pulmonary vasculature bilaterally. No intraluminal filling defects or evidence for pulmonary embolus is seen. Airway: The airway is clear. No endobronchial lesion is identified. Lungs: Patchy interstitial and alveolar opacities are present bilaterally characteristic of a viral t ype pneumonitis and probable Covid 19 pneumonia. The lungs are clear of acute alveolar opacities, air bronchograms or pulmonary nodules. Pleura: There are very small bilateral pleural effusions. There is no evidence for pneumothorax. Mediastinum: There is no evidence for pathologic adenopathy. The heart size is within normal limits. There is coronary artery calcification present. The thoracic aorta is within normal limits. There is no evidence for pericardial effusion. Upper abdomen:The adrenal glands are normal bilaterally. Osseous structures: There is no acute osseous pathology. Impression: 1. No CTA evidence for pulmonary embolus. 2. Patchy interstitial and alveolar opacities bilaterally characteristic of a viral type pneumonitis and probable Covid 19 pneumonia. 3. Very small bilateral pleural effusions. ACT 112: Negative or not required by law. Electronically signed by: Chris Corea M.D. 01/20/2022 2:27 PM
[2022-01-20] MEDS ORDERED: dexAMETHasone**PF** 10 MG/ML VIAL IV ONE (14:30)
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
[2022-01-20 15:59] LABS: Influenza A virus by PCR Negative (Neg); Influenza B virus by PCR Negative (Neg); RSV by PCR Negative (Neg)
[2022-01-20 16:08] LABS: SARS CoV2 RNA(COVID-19) InHosp POSITIVE (Negative)
[2022-01-20] MEDS ORDERED: Patient's HEIGHT &/or WEIGHT Needed SCH (16:45)
[2022-01-20] MEDS ORDERED: ONDANSETRON INJ 2 MG/ML 2 ML VIAL IV PRN (16:50)
[2022-01-20] MEDS ORDERED: ACETAMINOPHEN 325 MG TAB PO PRN (16:50)
[2022-01-20] MEDS ORDERED: oxyCODONE/ACETAMINOPHEN 5mg/325mg TAB PO PRN (18:26)
[2022-01-20] MEDS ORDERED: CETIRIZINE HCL 10 MG TABLET PO PRN (18:26)
[2022-01-20] MEDS ORDERED: AZITHROMYCIN 250 MG TAB PO ONE (18:35)
[2022-01-20] MEDS: ENOXAPARIN INJ 40 MG/0.4 ML SYR SQ SCH (18:43)
[2022-01-20] MEDS: ALBUTEROL HFA 8 GM INHALER INH SCH (18:57)
[2022-01-20] MEDS ORDERED: ASPIRIN 81 MG ECTAB PO SCH (20:00)
[2022-01-20] MEDS: MELATONIN 3 MG TAB PO SCH (22:08)
[2022-01-20] MEDS: BENZONATATE 100 MG CAPSULE PO SCH (22:08)
[2022-01-20] MEDS: guaiFENesin 600 MG TABCR PO SCH (22:09)
[2022-01-21] MEDS: ENOXAPARIN INJ 40 MG/0.4 ML SYR SQ SCH ×2 (04:51→16:07)
[2022-01-21 06:40] LABS: Hematocrit (blood only) 30.4 % (42-52); Hemoglobin 10.2 g/dL (14.0-18.0); Mean Corpuscular Hgb Conc 33.6 g/dL (32-36); Mean Corpuscular Volume 92.4 fL (80-100); Mean Platelet Volume 9.4 fL (7.4-10.4); Platelet Count 191 K/uL (130-400); RDW Coefficient of Variation 13.5 % (11.5-14.5); RDW Standard Deviation 45.2 fL (36.4-46.3); Red Blood Count 3.29 M/uL (4.7-6.1); White Blood Count 13.94 K/uL (4.8-10.8)
[2022-01-21 06:54] LABS: Albumin Globulin Ratio 1.3 (0.9-2); Albumin Level 3.3 gm/dl (3.4-5.0); Bilirubin,Total 0.6 mg/dl (0.2-1.0); Calcium 8.3 mg/dl (8.5-10.1); Creatinine Clr Calc Pharmacy 45.1 ml/min; Est GFR (African American) 68.1 ml/min; Est GFR (Non-African American) 58.7 ml/min; Globulin 2.6 gm/dl (2.5-4.0); Magnesium 2.6 mg/dl (1.7-2.4); Phosphorus 4.8 mg/dl (2.5-4.9); Potassium 4.1 mmol/L (3.5-5.1); Total Protein 5.9 gm/dl (6.0-8.3)
[2022-01-21] MEDS: ALBUTEROL HFA 8 GM INHALER INH SCH ×4 (07:17→19:26)
[2022-01-21] MEDS: LOSARTAN POTASSIUM 50 MG TAB PO SCH (08:03)
[2022-01-21] MEDS: BENZONATATE 100 MG CAPSULE PO SCH ×3 (08:03→21:02)
[2022-01-21] MEDS: allopurinoL 100 MG TAB PO SCH (08:03)
[2022-01-21] MEDS: guaiFENesin 600 MG TABCR PO SCH ×2 (08:04→21:02)
[2022-01-21] MEDS: dexAMETHasone 6 MG in SYRINGE 0 ML IV SCH (08:04)
[2022-01-21] MEDS: hydroCHLOROthiazide 25 MG TAB PO SCH (08:05)
--- NOTE | 2022-01-21 13:29 | Electrocardiogram Report ---
Test Reason : Blood Pressure : / mmHG Vent. Rate : 077 BPM Atrial Rate : 077 BPM P-R Int : 162 ms QRS Dur : 128 ms QT Int : 410 ms P-R-T Axes : 038 -02 023 degrees QTc Int : 463 ms Sinus rhythm with sinus arrhythmia with occasional Premature ventricular complexes Non-specific intra-ventricular conduction block Abnormal ECG When compared with ECG of 06-MAY-2019 12:32, Premature ventricular complexes are now Present Premature supraventricular complexes are no longer Present Vent. rate has increased BY 25 BPM QRS duration has increased Confirmed by Vinay Ponce ([id number]) on 01/21/2022 1:28:44 PM Referred By: REFERRED SELF Confirmed By:Vinay Ponce
--- NOTE | 2022-01-21 15:21 | Hospitalist Progress Note ---
Date of Service January 21, 2022 Assessment & Plan (1) Pneumonia due to 2019 novel coronavirus: Plan: (1) COVID-19: (2) Pneumonia due to COVID-19 virus: Plan: - COVID-19 positive as of January 07, not vaccinated, patient presented 01/20 with worsening shortness of breath and weakness. Not on home oxygen. Admitting procalcitonin negative, BNP 95, WBC elevated [patient on a steroid as outpatient] Admitting chest imaging including CTA chest [pulmonary embolus negative] suggestive of viral type pneumonitis. In ER, patient was saturating 90% on room air, patient was put on 2 L nasal cannula oxygen. Patient's outpatient azithromycin course was continued to complete the course on 01/20, prednisone taper stopped, continue with dexamethasone 01/20 Incentive spirometer, monitor off antibiotic, patient afebrile. Patient requiring 2 L nasal cannula oxygen. Patient feeling better, OT recommending home with home health. Likely discharge tomorrow if no new issues arises. #. Chronic lymphocytic leukemia - Originally diagnosed in 2004, follows with Dr. Jamil as an outpatient -Has missed leukoran oral chemotherapy medication x1 week due to not feeling well, will continue to hold in the setting of viral pneumonia -Patient to follow-up with his oncologist as an outpatient #. Other chronic medical conditions: CKD, HLD, aortic stenosis, history of CVA Continue with/resume home meds as and when appropriate. #. DVT prophylaxis: Lovenox #. CODE STATUS: DNR/DNI #. Disposition: PT/OT, CM to assist with DC planning, likely DC tomorrow. Admission and Anticipated Discharge Date Admission Date: January 20, 2022 Subjective Patient seen and examined at bedside as a follow-up of COVID-19 virus infection and likely pneumonia due to COVID-19 virus. Patient was lying in bed, on 2 L nasal cannula oxygen, NAD, no new acute events overnight. Patient is hard of hearing. Patient reports eating okay. Patient reports moving bowels okay. Patient reports feeling " far better than what he felt 24 hours ago". Patient denies headache or dizziness. Patient reports cough with whitish sputum. Patient denies chest pain or palpitation. Patient denies belly pain. Physical Exam Physical Exam: GENERAL: Alert and oriented x3. NAD, on 2 L nasal cannula oxygen, appears weak and frail. Hard of hearing. HEENT: No pallor, no icterus. Pupils equal, round and reactive to light. Oral mucosa moist. NECK: No JVD, no neck masses. HEART: S1 and S2 heard. Regular rate and rhythm. No murmur, no gallop. RESPIRATORY SYSTEM: Normal AP diameter. No accessory muscle use. No wheezing, bibasal rales. ABDOMEN: Soft, bowel sounds present, nontender, no distention. CENTRAL NERVOUS SYSTEM: No facial droop. Speech is clear. Obeys simple commands. Moves extremities. EXTREMITIES: No edema, no erythema seen. Results & Data Results & Data ([facility]) Vital Signs (Past 12 Hours) Vital Signs Temp Pulse Resp BP Pulse Ox Pulse Ox Pulse Ox 01/21/22 14:39 73 16 97 01/21/22 13:38 90 89 L 01/21/22 11:48 36.3 C L 62 19 105/66 94 01/21/22 11:06 58 L 16 92 01/21/22 08:00 36.3 C L 60 20 127/70 94 01/21/22 07:22 58 L 16 92 01/21/22 03:36 36.8 C 56 L 18 117/72 94 Pulse Ox Pulse Ox 01/21/22 14:39 01/21/22 13:38 88 L 78 L 01/21/22 11:48 01/21/22 11:06 01/21/22 08:00 01/21/22 07:22 01/21/22 03:36
[2022-01-21] MEDS: SENNA 8.6 MG TAB PO SCH (17:56)
[2022-01-21] MEDS: MELATONIN 3 MG TAB PO SCH (21:02)
[2022-01-22] MEDS: ENOXAPARIN INJ 40 MG/0.4 ML SYR SQ SCH (04:11)
[2022-01-22 06:42] LABS: Hematocrit (blood only) 30.3 % (42-52); Hemoglobin 10.1 g/dL (14.0-18.0); Mean Corpuscular Hemoglobin 30.1 pg (25-34); Mean Corpuscular Hgb Conc 33.3 g/dL (32-36); Mean Corpuscular Volume 90.4 fL (80-100); Mean Platelet Volume 9.1 fL (7.4-10.4); Platelet Count 206 K/uL (130-400); RDW Coefficient of Variation 13.7 % (11.5-14.5); RDW Standard Deviation 45.1 fL (36.4-46.3); Red Blood Count 3.35 M/uL (4.7-6.1); White Blood Count 14.05 K/uL (4.8-10.8)
[2022-01-22] MEDS: ALBUTEROL HFA 8 GM INHALER INH SCH ×3 (07:00→14:35)
[2022-01-22 07:08] LABS: Calcium 8.2 mg/dl (8.5-10.1); Est GFR (African American) 73.4 ml/min; Est GFR (Non-African American) 63.3 ml/min; Potassium 4.5 mmol/L (3.5-5.1)
[2022-01-22] MEDS: SENNA 8.6 MG TAB PO SCH (08:14)
[2022-01-22] MEDS: LOSARTAN POTASSIUM 50 MG TAB PO SCH (08:15)
[2022-01-22] MEDS: allopurinoL 100 MG TAB PO SCH (08:15)
[2022-01-22] MEDS: hydroCHLOROthiazide 25 MG TAB PO SCH (08:15)
[2022-01-22] MEDS: guaiFENesin 600 MG TABCR PO SCH (08:15)
[2022-01-22] MEDS: BENZONATATE 100 MG CAPSULE PO SCH ×2 (09:28→14:34)
[2022-01-22] MEDS: dexAMETHasone 6 MG in SYRINGE 0 ML IV SCH (09:28)
[2022-01-22 12:16] VITALS: BP 106/57; PULSE 76; TEMP 99.7; O2SAT 93
--- NOTE | 2022-01-22 12:51 | Discharge Summary ---
Date of Service January 22, 2022 Admission HPI Per Admitting Provider This is an 81-year-old male with PMHx of HTN, HLD, CLL, nonrheumatic aortic valve stenosis, CKD stage III, spinal stenosis, statin intolerance, AAA who presents with worsening shortness of breath. He was seen in the ER previously and was diagnosed with COVID but was sent home. He represents today due to worsening shortness of breath, tachypneic, and O2 sats are below 90% where he does not wear home O2. CXR is showing possible bilateral infiltrates suggestive of pneumonia. He is very hard of hearing. The patient reports today that his breathing has been bad for a couple of months, he tested positive for COVID on January 07, but was doing ok at that point and was sent home with supportive care. He was followed up with his PCP and was prescribed prednisone taper, azithromycin for sinus issues and he thinks that this has slightly improved. His breathing however continues to be worsening and he feels worn out.. he has not been wearing o2 at baseline. He reports coughing, inability to sleep, chest tightness, heaviness and is coughing up phlegm that is thick and clear, denies hemoptysis. Pt reports no fever, chills or sweats. Denies any chest pain. He also reports losing about 25 lbs in the past 6 months. Pt has been following with Dr. Jamil for CLL but has missed the past week of his Leukeran. Patient reports that he has not been taking multiple of his medications for at least the last week due to not feeling well. He specifically states he is not on a blood thinner (not taking Xarelto) other than baby aspirin. Admission Exam Per Admitting Provider GENERAL: Alert and oriented x3. NAD, on 2 L nasal cannula oxygen, appears weak and frail. Hard of hearing. HEENT: No pallor, no icterus. Pupils equal, round and reactive to light. Oral mucosa moist. NECK: No JVD, no neck masses. HEART: S1 and S2 heard. Regular rate and rhythm. No murmur, no gallop. RESPIRATORY SYSTEM: Normal AP diameter. No accessory muscle use. No wheezing, dry crackles over the mid and lower right lung. Left lung CTA ABDOMEN: Soft, bowel sounds present, nontender, no distention. CENTRAL NERVOUS SYSTEM: No facial droop. Speech is clear. Obeys simple commands. Moves extremities. EXTREMITIES: No edema, no erythema seen. Principal Diagnosis COVID-19 virus infection Pneumonia due to COVID-19 virus infection History of CLL under treatment, follows oncology. Discharge Exam GENERAL: Alert and oriented x3. NAD, on 2 L nasal cannula oxygen, appears weak and frail. Hard of hearing. HEENT: No pallor, no icterus. Pupils equal, round and reactive to light. Oral mucosa moist. NECK: No JVD, no neck masses. HEART: S1 and S2 heard. Regular rate and rhythm. No murmur, no gallop. RESPIRATORY SYSTEM: Normal AP diameter. No accessory muscle use. No wheezing, bibasal rales. ABDOMEN: Soft, bowel sounds present, nontender, no distention. CENTRAL NERVOUS SYSTEM: No facial droop. Speech is clear. Obeys simple commands. Moves extremities. EXTREMITIES: No edema, no erythema seen. Discharge Data Allergies Allergy/AdvReac Type Severity Reaction Status Date / Time levofloxacin Allergy Intermediate Hives Verified 01/20/22 15:52 Penicillins Allergy Intermediate Hives Verified 01/20/22 15:52 simvastatin AdvReac Mild elevated Verified 01/20/22 15:52 LFTs Consultations 01/20/22 14:53 ED Decision to Admit Stat Ordered Studies 01/20/22 12:55 CT angio chest PE protocol Stat Hospital Course (1) Pneumonia due to 2019 novel coronavirus: 81 yo M was being managed for the following: (1) COVID-19: (2) Pneumonia due to COVID-19 virus: Plan: COVID-19 positive as of January 07, not vaccinated, patient presented 01/20 with worsening shortness of breath and weakness. Not on home oxygen. Admitting procalcitonin negative, BNP 95, WBC elevated [patient on a steroid as outpatient] Admitting chest imaging including CTA chest [pulmonary embolus negative] suggestive of viral type pneumonitis. In ER, patient was saturating 90% on room air, patient was put on 2 L nasal cannula oxygen. Patient's outpatient azithromycin course was continued to complete the course on 01/20, prednisone taper stopped, continue with dexamethasone 01/20 --> OP decadron for 5 days. Incentive spirometer, monitor off antibiotic, patient afebrile. Patient requiring 2 L nasal cannula oxygen. --> will need O2 on DC, pt to follow w/ PCP as OP in a week time. Patient feeling better, PT/OT recommending home with home health. Pt's called and given update about the patient's current status, answered all questions and went through discharge instructions. #. Chronic lymphocytic leukemia - Originally diagnosed in 2004, follows with Dr. Jamil as an outpatient -Has missed leukoran oral chemotherapy medication x1 week due to not feeling well, will continue to hold in the setting of viral pneumonia -Patient to follow-up with his oncologist as an outpatient #. Other chronic medical conditions: CKD, HLD, aortic stenosis, history of CVA Continue with/resume home meds as and when appropriate. #. DVT prophylaxis: Lovenox #. CODE STATUS: DNR/DNI Patient being discharged home with following instruction at the point of discharge home Follow-up with your primary care physician within a week time. Follow-up with your oncology doctor as prior. You will be discharged with Decadron for 5 more days. Maintain mask when around/interacting with people. You are being discharged on oxygen. Continue home health services per PT and OT. Get your blood work CBC and CMP done in a week time and have the results forwarded to your primary care physician. If you have increasing cough/production of yellowish sputum, contact your primary care physician or emergency. If you have shortness of breath worsening, contact emergency. For your sleep, avoid caffeine/coffee. You can use [id number] melatonin 3 hours prior to going to bed, no mobile devices or television in the evening. Take your medications as prescribed. Total Time Total Time Spent Total Time Spent (In Minutes): 35 Discharge Plan Discharge Items Patient Disposition: Home - Home Health Services Reason For Visit: COVID PNEUMONIA Discharge Diagnosis: COVID-19 virus infection Pneumonia due to COVID-19 virus infection History of CLL under treatment, follows oncology. Activity: Resume your previous activity Non-emergency contact: Primary Care Provider Call non-emergency contact if: you have any medication questions, your symptoms worsen and your temperature is above 101 Follow-up/Referrals: Vincent Slaughter MD [Outside Practitioners] - (Date & Time 02/01/2022 12:00 PM Provider Vincent Slaughter MD Department General [facility] ) Diet: Heart Healthy Addtl Attending Provider Instructions: Follow-up with your primary care physician within a week time. Follow-up with your oncology doctor as prior. You will be discharged with Decadron for 5 more days. Maintain mask when around/interacting with people. You are being discharged on oxygen. Continue home health services per PT and OT. Get your blood work CBC and CMP done in a week time and have the results forwarded to your primary care physician. If you have increasing cough/production of yellowish sputum, contact your primary care physician or emergency. If you have shortness of breath worsening, contact emergency. For your sleep, avoid caffeine/coffee. You can use [id number] melatonin 3 hours prior to going to bed, no mobile devices or television in the evening. Take your medications as prescribed. Pending Studies at Discharge: Yes Stand-Alone Forms: My [facility] [place], Smoking Cessation Medications and DC Order Prescriptions: New benzonatate 100 mg Capsule 100 mg PO TID 5 Days Qty: 15 RF: 0 guaifenesin [Mucinex] 600 mg Tablet Extended Release 12hr 600 mg PO Q12 5 Days Qty: 10 RF: 0 dexamethasone [Decadron] 6 mg tablet 6 mg PO DAILY 5 Days Qty: 5 RF: 0 Continued losartan [Cozaar] 50 mg Tablet 50 mg PO QAM RF: 0 cetirizine [Zyrtec] 10 mg Tablet 5 mg PO DAILY PRN (Reason: Allergy Symptoms) RF: 0 aspirin 81 mg Tablet,Delayed Release (Dr/Ec) 81 mg PO DAILY RF: 0 hydrochlorothiazide 12.5 mg Tablet 12.5 mg PO QAM RF: 0 oxycodone-acetaminophen [Percocet] 5-325 mg Tablet 1 tab PO DIRECTED PRN (Reason: Pain) RF: 0 Leukeran 2 mg tablet 2 mg PO DAILY RF: 0 allopurinol 100 mg tablet 200 mg PO QAM RF: 0 acetaminophen [Tylenol Extra Strength] 500 mg Tablet 1,000 mg PO Q6H PRN (Reason: Pain) RF: 0 acetaminophen [Tylenol Arthritis] 650 mg Tablet Extended Release 1,300 mg PO HS PRN (Reason: Pain) RF: 0 albuterol sulfate 90 mcg/actuation HFA aerosol inhaler 2 puff INHALATION Q4 PRN (Reason: Shortness Of Breath Or Wheezing) RF: 0 Discontinued azithromycin 250 mg tablet 250 mg PO .DAILY 5 DAYS RF: 0 prednisone 20 mg tablet 20 mg PO DIRECTED RF: 0 Discharge Orders: Discharge Order (Routine); Ordered 01/22/22 Ordered By: Idris Pepe Admission Data Admit Date/Time: 01/20/22 15:01 Attending Provider: Idris Pepe Admit Provider: Idris Pepe Primary Care Provider: Stan Hedrick Other Providers: Idris Pepe
== END 2022-01-22 14:55 | disposition home or self-care (01) | DRG 177 ==
LOC: ED 11:08 → EDINP 15:01 → INTOOBSV 15:01 → 2E 20:49

== ENCOUNTER 2022-01-31 18:02 | Inpatient (IN) ==
[2022-01-31] MEDS ORDERED: ALBUT/IPRATROP 3MG/0.5MG NEB 3 ML VIAL INH STA (18:27)
[2022-01-31] MEDS ORDERED: SODIUM CHLORIDE 0.9% 1000ML 1,000 ML IV ONE ×2 (18:36→19:12)
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
--- NOTE | 2022-01-31 19:01 | XRay Report ---
XR chest 1V portable CLINICAL HISTORY: Dyspnea TECHNIQUE: Single frontal radiograph of the chest was obtained. Comparison: None available at the time of this dictation. FINDINGS: Left total shoulder arthroplasty is seen. Multiple tiny metallic fragments are again seen projecting over the chest. These may represent shrapnel in the soft tissues. Severe degenerative changes are see n in the right glenohumeral joint. The cardiomediastinal silhouette is normal. No worsening of previo usly noted airspace opacities. No evidence of pleural effusion or pneumothorax. IMPRESSION: Interval worsening of previously noted airspace opacities which likely represent pneumonia with or wi thout superimposed atelectasis/aspiration. ACT 112: Negative or not required by law. Electronically signed by: Alton Covington M.D. 01/31/2022 6:59 PM
[2022-01-31] MEDS ORDERED: CEFEPIME 2,000 MG/20 ML VIAL IV STA (19:04)
[2022-01-31 19:45] LABS: Alanine Aminotransferase 62 U/L (7-52); Albumin Globulin Ratio 1.3 (0.9-2); Albumin Level 3.5 gm/dl (3.4-5.0); Alkaline Phosphatase 70 U/L (34-104); Anion Gap 12 (3-11); Aspartate Aminotransferase 37 U/L (13-39); BUN Creatinine Ratio 22.5 (10-20); Bilirubin,Total 1.4 mg/dl (0.2-1.0); Blood Urea Nitrogen 23 mg/dl (6-23); Calcium 8.3 mg/dl (8.5-10.1); Carbon Dioxide 22 mmol/L (21-32); Chloride 101 mmol/L (98-107); Est GFR (African American) 79.5 ml/min; Est GFR (Non-African American) 68.6 ml/min; Globulin 2.6 gm/dl (2.5-4.0); Glucose 110 mg/dl (70-99(Fasting)); Potassium 3.3 mmol/L (3.5-5.1); Sodium 135 mmol/L (136-145); Total Protein 6.1 gm/dl (6.0-8.3)
[2022-01-31] MEDS ORDERED: POTASSIUM CHLORIDE CRTAB 20 MEQ TABCR PO STA (20:07)
[2022-01-31 20:08] LABS: Hematocrit (blood only) 33.8 % (42-52); Hemoglobin 11.3 g/dL (14.0-18.0); Mean Corpuscular Hemoglobin 30.4 pg (25-34); Mean Corpuscular Hgb Conc 33.4 g/dL (32-36); Mean Corpuscular Volume 90.9 fL (80-100); Mean Platelet Volume 9.6 fL (7.4-10.4); Platelet Count 203 K/uL (130-400); RDW Coefficient of Variation 14.5 % (11.5-14.5); RDW Standard Deviation 48.3 fL (36.4-46.3); Red Blood Count 3.72 M/uL (4.7-6.1); White Blood Count 35.64 K/uL (4.8-10.8)
[2022-01-31] MEDS ORDERED: dexAMETHasone 6 MG in SYRINGE 0 ML IV ONE (20:15)
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
[2022-01-31 20:43] LABS: ALC (manual) 23.56 K/uL (1.2-3.4); ANC (manual) 11.23 K/uL (1.4-6.5); Echinocytes 1+; Lymphocytes # (manual) 23.56 K/uL (1.2-3.4); Lymphocytes % (manual) 66.1 %; Monocytes # (manual) 0.86 K/uL (0.11-0.59); Monocytes % (manual) 2.4 %; Neutrophils # (manual) 11.23 K/uL (1.4-6.5); Neutrophils % (manual) 31.5 %; Smudge Cells Present
[2022-01-31 21:13] LABS: Influenza A virus by PCR Negative (Neg); Influenza B virus by PCR Negative (Neg); RSV by PCR Negative (Neg)
[2022-01-31 21:19] LABS: SARS CoV2 RNA(COVID-19) InHosp POSITIVE (Negative)
[2022-01-31] MEDS ORDERED: LACTATED RINGER'S 1,000 ML IV STA (22:14)
[2022-01-31 22:19] LABS: Appearance Urine Clear (Clear); Bacteria Urine Automated Negative (Negative); Bilirubin Urine Negative (Negative); Blood Urine Negative (Negative); Color Urine Yellow; Glucose Urine UA Negative (Negative); Ketones Urine Trace (Negative); Leukocyte Esterase Urine Negative (Negative); Nitrite Urine Negative (Negative); Protein Urine 1+ (Negative); RBC Urine Automated 0-4 /hpf (0-4); Specific Gravity Urine 1.021 (1.000-1.030); Urobilinogen Urine Negative (Negative)
[2022-01-31 22:55] LABS: Base Excess ABG -3.2 mEq/L (-9-1.8); HCO3 ABG 20 mmol/L (19-24); Oxygen Saturation ABG 95.2 % (90-95); PCO2 ABG 28 mmHg (35-46); PO2 ABG 68 mmHg (80-95); pH ABG 7.45 (7.35-7.45)
[2022-01-31 23:00] LABS: Allen Test Pos (Pos)
[2022-01-31] MEDS ORDERED: oxyCODONE HCL IR 5 MG TAB (IMMEDIATE RELEASE) PO PRN (23:49)
[2022-01-31] MEDS ORDERED: ACETAMINOPHEN 325 MG TAB PO PRN (23:49)
[2022-01-31] MEDS ORDERED: PROMETHAZINE HCL 12.5 MG in SODIUM CHLORIDE 0.9% 50 ML IV PRN (23:49)
[2022-01-31] MEDS ORDERED: guaiFENesin 600 MG TABCR PO PRN (23:49)
[2022-01-31] MEDS ORDERED: BENZONATATE 100 MG CAPSULE PO PRN (23:49)
[2022-02-01 06:55] LABS: Hematocrit (blood only) 29.7 % (42-52); Hemoglobin 9.8 g/dL (14.0-18.0); Mean Corpuscular Volume 90.8 fL (80-100); Mean Platelet Volume 9.4 fL (7.4-10.4); Platelet Count 156 K/uL (130-400); RDW Coefficient of Variation 14.7 % (11.5-14.5); RDW Standard Deviation 48.3 fL (36.4-46.3); Red Blood Count 3.27 M/uL (4.7-6.1); White Blood Count 28.15 K/uL (4.8-10.8)
[2022-02-01 07:21] LABS: BUN Creatinine Ratio 24.7 (10-20); Calcium 7.7 mg/dl (8.5-10.1); Creatinine Clr Calc Pharmacy 63.9 ml/min; Est GFR (African American) 92.9 ml/min; Est GFR (Non-African American) 80.2 ml/min; Potassium 3.9 mmol/L (3.5-5.1)
[2022-02-01 08:10] LABS: Immature Granulocytes # (auto) 0.09 K/uL (0.00-0.02); Immature Granulocytes % (auto) 0.3 %; Lymphocytes # (auto) 20.08 K/uL (1.2-3.4); Lymphocytes % (auto) 71.3 %; Monocytes # (auto) 0.28 K/uL (0.11-0.59); Neutrophils % (auto) 27.4 %; Ovalocytes 1+; Smudge Cells Present
[2022-02-01] MEDS: LOSARTAN POTASSIUM 50 MG TAB PO SCH (08:48)
[2022-02-01] MEDS: CETIRIZINE HCL 10 MG TABLET PO PRN (08:48)
[2022-02-01] MEDS: allopurinoL 100 MG TAB PO SCH (08:48)
[2022-02-01] MEDS: ASPIRIN 81 MG ECTAB PO SCH (08:48)
[2022-02-01] MEDS: ENOXAPARIN INJ 40 MG/0.4 ML SYR SQ SCH (08:49)
[2022-02-01] MEDS ORDERED: dexAMETHasone 6 MG in SYRINGE 0 ML IV SCH (09:00)
[2022-02-01] MEDS: LEVALBUTEROL TARTRATE 15 GM HFA.AER.AD INH SCH ×4 (09:36→20:02)
--- NOTE | 2022-02-01 10:23 | Electrocardiogram Report ---
Test Reason : Blood Pressure : / mmHG Vent. Rate : 080 BPM Atrial Rate : 080 BPM P-R Int : 164 ms QRS Dur : 132 ms QT Int : 406 ms P-R-T Axes : -11 -25 -14 degrees QTc Int : 468 ms Sinus rhythm with occasional Premature ventricular complexes and Premature atrial complexes Right bundle branch block Diffuse Nonspecific T wave abnormality Abnormal ECG When compared with ECG of 20-JAN-2022 11:53, Premature atrial complexes are now Present Right bundle branch block has replaced Non-specific intra-ventricular conduction block Confirmed by Gunnar Roy ([id number]) on 02/01/2022 10:23:04 AM Referred By: REFERRED SELF Confirmed By:Gunnar Roy
[2022-02-01] MEDS ORDERED: FUROSEMIDE INJ 20 MG/2 ML VIAL IV ONE (15:10)
--- NOTE | 2022-02-01 15:19 | Hospitalist Progress Note ---
Date of Service February 01, 2022 Assessment & Plan (1) Bilateral interstitial pneumonia: Plan: #. Pneumonia due to COVID-19 virus: #. Hypoxemic respiratory failure secondary to persistent COVID-19 pneumonia First COVID-19 positive as of January 07, not vaccinated, who was admitted 01/20-01/22 with worsening shortness of breath and weakness and was discharged home after being stable on 2L O2 while in hospital. This time presented 01/31 with worsening shortness of breath. Patient reports cough with thick clear sticky phlegm. Admitting Pro-Mac negative, BNP elevated at 180, CXR with worsening bilateral airspace opacities. WBC elevated at admission, not reliable due to history of CLL. Incentive spirometer, albuterol, Mucinex, oxygen, wean down oxygen as tolerated. Decadron. Pulmonology consult. Lasix as needed to keep the patient on drier unloader side. strict Is and Os. BMP as needed. Monitor and replete electrolytes. #. Chronic lymphocytic leukemia -Originally diagnosed in 2004, follows with Dr. Jamil as an outpatient -Currently on hold during acute illness. -Patient to follow-up with his oncologist as an outpatient #. Other chronic medical conditions:CKD, HLD, aortic stenosis, history of CVA Continue with/resume home meds as and when appropriate. #. DVT prophylaxis: Lovenox #. CODE STATUS: DNR/DNI Admission and Anticipated Discharge Date Admission Date: January 31, 2022 Subjective Patient seen and examined at bedside as a follow-up of hypoxemic respiratory failure secondary to persistent COVID-19 pneumonia. Of note, patient is immunocompromised, takes Leukoran 2 Mg daily for CLL. Patient was lying in bed, on 6 L nasal cannula oxygen, NAD, no new acute events overnight. Patient reports eating okay and moving bowels okay. Patient reports cough getting better and occasionally produces clear phlegm. Patient denies headache/dizziness/chest pain/palpitations/belly pain/other review of symptoms. Physical Exam Physical Exam: GENERAL: Alert and oriented x3. NAD, on 6 L nasal cannula oxygen, appears weak and frail. Hard of hearing. HEENT: No pallor, no icterus. Pupils equal, round and reactive to light. Oral mucosa moist. NECK: No JVD, no neck masses. HEART: S1 and S2 heard. Regular rate and rhythm. No murmur, no gallop. RESPIRATORY SYSTEM: Normal AP diameter. No accessory muscle use. No wheezing, b/l mid to basal crackles ABDOMEN: Soft, bowel sounds present, nontender, no distention. CENTRAL NERVOUS SYSTEM: No facial droop. Speech is clear. Obeys simple commands. Moves extremities. EXTREMITIES: No edema, no erythema seen. Results & Data Results & Data ([facility]) Vital Signs (Past 12 Hours) Vital Signs Temp Pulse Pulse Resp BP Pulse Ox 02/01/22 11:38 36.6 C 69 12 127/69 98 02/01/22 09:37 78 20 94 02/01/22 08:28 36.8 C 97 H 16 142/81 H 97 02/01/22 06:15 61 02/01/22 05:16 60 27 H 130/66 95
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
[2022-02-01] MEDS: DOXYCYCLINE HYCLATE 100 MG CAP PO SCH ×2 (17:20→21:25)
[2022-02-02 06:42] LABS: Hematocrit (blood only) 27.5 % (42-52); Mean Corpuscular Hemoglobin 30.1 pg (25-34); Mean Corpuscular Hgb Conc 32.7 g/dL (32-36); Mean Platelet Volume 9.3 fL (7.4-10.4); Platelet Count 168 K/uL (130-400); RDW Coefficient of Variation 14.7 % (11.5-14.5); RDW Standard Deviation 48.8 fL (36.4-46.3); Red Blood Count 2.99 M/uL (4.7-6.1); White Blood Count 29.93 K/uL (4.8-10.8)
[2022-02-02 07:08] LABS: BUN Creatinine Ratio 28.3 (10-20); Creatinine Clr Calc Pharmacy 57.8 ml/min; Est GFR (African American) 82.4 ml/min; Est GFR (Non-African American) 71.1 ml/min; Magnesium 2.1 mg/dl (1.7-2.4); Phosphorus 3.5 mg/dl (2.5-4.9); Potassium 4.2 mmol/L (3.5-5.1)
[2022-02-02] MEDS: LEVALBUTEROL TARTRATE 15 GM HFA.AER.AD INH SCH (07:39)
[2022-02-02] MEDS ORDERED: LEVALBUTEROL TARTRATE 15 GM HFA.AER.AD INH PRN (07:41)
[2022-02-02] MEDS: guaiFENesin 600 MG TABCR PO SCH ×2 (08:51→20:52)
[2022-02-02] MEDS: hydroCHLOROthiazide 25 MG TAB PO SCH (08:51)
[2022-02-02] MEDS: DOXYCYCLINE HYCLATE 100 MG CAP PO SCH ×2 (08:51→20:52)
[2022-02-02] MEDS: ASPIRIN 81 MG ECTAB PO SCH (08:52)
[2022-02-02] MEDS: ENOXAPARIN INJ 40 MG/0.4 ML SYR SQ SCH (08:52)
[2022-02-02] MEDS: LOSARTAN POTASSIUM 50 MG TAB PO SCH (08:52)
[2022-02-02] MEDS: allopurinoL 100 MG TAB PO SCH (08:52)
--- NOTE | 2022-02-02 17:54 | Hospitalist Progress Note ---
Date of Service February 02, 2022 Assessment & Plan (1) Bilateral interstitial pneumonia: Plan: #. Pneumonia due to COVID-19 virus: #. Hypoxemic respiratory failure secondary to persistent COVID-19 pneumonia First COVID-19 positive as of January 07, not vaccinated, who was admitted 01/20-01/22 with worsening shortness of breath and weakness and was discharged home after being stable on 2L O2 while in hospital. This time presented 01/31 with worsening shortness of breath. Patient reports cough with thick clear sticky phlegm. Admitting Pro-Mac negative, BNP elevated at 180, CXR with worsening bilateral airspace opacities. WBC elevated at admission, not reliable due to history of CLL. Incentive spirometer, albuterol, Mucinex, oxygen, wean down oxygen as tolerated. Decadron. 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 strict Is and Os. BMP as needed. Pulm evaluated, doxy from 02/01. No decadron. Monitor and replete electrolytes. #. Chronic lymphocytic leukemia -Originally diagnosed in 2004, follows with Dr. Jamil as an outpatient -Currently on hold during acute illness. D/w Dr. Jamil. -Patient to follow-up with his oncologist as an outpatient #. Other chronic medical conditions:CKD, HLD, aortic stenosis, history of CVA Continue with/resume home meds as and when appropriate. #. DVT prophylaxis: Lovenox #. CODE STATUS: DNR/DNI Admission and Anticipated Discharge Date Admission Date: January 31, 2022 Subjective Patient seen and examined at bedside as a follow-up of hypoxemic respiratory failure secondary to persistent COVID-19 pneumonia. Of note, patient is immunocompromised, takes Leukoran 2 Mg daily for CLL. Patient was lying in bed, on 6 L nasal cannula oxygen, NAD, no new acute events overnight. Patient reports eating okay and moving bowels okay. Patient reports cough getting better and occasionally produces clear phlegm. Patient denies headache/dizziness/chest pain/palpitations/belly pain/other review of symptoms. Physical Exam Physical Exam: GENERAL: Alert and oriented x3. NAD, on 6 L nasal cannula oxygen, appears weak and frail. Hard of hearing. HEENT: No pallor, no icterus. Pupils equal, round and reactive to light. Oral mucosa moist. NECK: No JVD, no neck masses. HEART: S1 and S2 heard. Regular rate and rhythm. No murmur, no gallop. RESPIRATORY SYSTEM: Normal AP diameter. No accessory muscle use. No wheezing, b/b crackles ABDOMEN: Soft, bowel sounds present, nontender, no distention. CENTRAL NERVOUS SYSTEM: No facial droop. Speech is clear. Obeys simple commands. Moves extremities. EXTREMITIES: No edema, no erythema seen. Results & Data Results & Data ([facility]) Vital Signs (Past 12 Hours) Vital Signs Temp Pulse Pulse Pulse Resp BP Pulse Ox 02/02/22 16:48 36.7 C 93 H 22 111/75 94 02/02/22 15:35 36.8 C 52 L 18 121/66 98 02/02/22 11:36 53 L 02/02/22 08:27 36.8 C 69 22 109/61 88 L 02/02/22 07:41 72 20 90
[2022-02-03] MEDS: guaiFENesin 600 MG TABCR PO SCH ×2 (07:49→20:55)
[2022-02-03] MEDS: LOSARTAN POTASSIUM 50 MG TAB PO SCH (07:50)
[2022-02-03] MEDS: CETIRIZINE HCL 10 MG TABLET PO PRN (07:50)
[2022-02-03] MEDS: ASPIRIN 81 MG ECTAB PO SCH (07:50)
[2022-02-03] MEDS: allopurinoL 100 MG TAB PO SCH (07:50)
[2022-02-03] MEDS: DOXYCYCLINE HYCLATE 100 MG CAP PO SCH ×2 (07:50→20:55)
[2022-02-03] MEDS: hydroCHLOROthiazide 25 MG TAB PO SCH (07:50)
[2022-02-03] MEDS: ENOXAPARIN INJ 40 MG/0.4 ML SYR SQ SCH (07:51)
[2022-02-03 08:31] LABS: Hematocrit (blood only) 32.6 % (42-52); Hemoglobin 10.4 g/dL (14.0-18.0); Mean Corpuscular Hemoglobin 29.1 pg (25-34); Mean Corpuscular Hgb Conc 31.9 g/dL (32-36); Mean Corpuscular Volume 91.3 fL (80-100); Mean Platelet Volume 9.1 fL (7.4-10.4); Platelet Count 202 K/uL (130-400); RDW Coefficient of Variation 15.1 % (11.5-14.5); RDW Standard Deviation 49.4 fL (36.4-46.3); Red Blood Count 3.57 M/uL (4.7-6.1); White Blood Count 29.83 K/uL (4.8-10.8)
--- NOTE | 2022-02-03 16:52 | Hospitalist Progress Note ---
Date of Service February 03, 2022 Assessment & Plan (1) Bilateral interstitial pneumonia: Plan: #. Pneumonia due to COVID-19 virus: #. Hypoxemic respiratory failure secondary to persistent COVID-19 pneumonia First COVID-19 positive as of January 07, not vaccinated, who was admitted 01/20-01/22 with worsening shortness of breath and weakness and was discharged home after being stable on 2L O2 while in hospital. This time presented 01/31 with worsening shortness of breath. Patient reports cough with thick clear sticky phlegm. Admitting Pro-Mac negative, BNP elevated at 180, CXR with worsening bilateral airspace opacities. WBC elevated at admission, not reliable due to history of CLL. Incentive spirometer, albuterol, Mucinex, oxygen, wean down oxygen as tolerated. Lasix as needed to keep the patient on veneer drier side. strict Is and Os. BMP as needed. Pulm evaluated, doxy from 02/01. No decadron. Monitor and replete electrolytes. #. Chronic lymphocytic leukemia -Originally diagnosed in 2004, follows with Dr. Jamil as an outpatient -Currently on hold during acute illness. D/w Dr. Jamil. -Patient to follow-up with his oncologist as an outpatient #. Other chronic medical conditions:CKD, HLD, aortic stenosis, history of CVA Continue with/resume home meds as and when appropriate. #. DVT prophylaxis: Lovenox #. CODE STATUS: DNR/DNI #. Dispo: Stable for DC, likely will need O2 concentrator upon DC, PT recommending rehab. Admission and Anticipated Discharge Date Admission Date: January 31, 2022 Subjective Patient seen and examined at bedside as a follow-up of hypoxemic respiratory failure secondary to persistent COVID-19 pneumonia. Of note, patient is immunocompromised, takes Leukoran 2 Mg daily for CLL. Patient was lying in bed, on 5 L nasal cannula oxygen, NAD, no new acute events overnight. Patient reports eating okay and moving bowels okay. Patient reports cough getting better w/ clear phlegm. Patient denies headache/dizziness/chest pain/palpitations/belly pain/other review of symptoms. Physical Exam Physical Exam: GENERAL: Alert and oriented x3. NAD, on 5 L nasal cannula oxygen, appears weak and frail. Hard of hearing. HEENT: No pallor, no icterus. Pupils equal, round and reactive to light. Oral mucosa moist. Scabbed zoster lesion on left lip, no pain. NECK: No JVD, no neck masses. HEART: S1 and S2 heard. Regular rate and rhythm. No murmur, no gallop. RESPIRATORY SYSTEM: Normal AP diameter. No accessory muscle use. No wheezing, b/b crackles ABDOMEN: Soft, bowel sounds present, nontender, no distention. CENTRAL NERVOUS SYSTEM: No facial droop. Speech is clear. Obeys simple commands. Moves extremities. EXTREMITIES: No edema, no erythema seen. Results & Data Results & Data ([facility]) Vital Signs (Past 12 Hours) Vital Signs Temp Pulse Pulse Resp BP BP Pulse Ox 02/03/22 15:48 72 02/03/22 14:46 36.8 C 71 20 127/52 L 95 02/03/22 11:18 68 16 113/68 97 02/03/22 09:30 66 02/03/22 06:23 36.9 C 50 L 18 119/68 96 02/03/22 04:54 92
[2022-02-04 07:25] LABS: Hematocrit (blood only) 28.6 % (42-52); Hemoglobin 9.4 g/dL (14.0-18.0); Mean Corpuscular Hemoglobin 29.8 pg (25-34); Mean Corpuscular Hgb Conc 32.9 g/dL (32-36); Mean Corpuscular Volume 90.8 fL (80-100); Mean Platelet Volume 9.5 fL (7.4-10.4); Platelet Count 175 K/uL (130-400); RDW Coefficient of Variation 15.1 % (11.5-14.5); RDW Standard Deviation 49.4 fL (36.4-46.3); Red Blood Count 3.15 M/uL (4.7-6.1); White Blood Count 20.46 K/uL (4.8-10.8)
[2022-02-04] MEDS: guaiFENesin 600 MG TABCR PO SCH ×2 (07:57→20:10)
[2022-02-04] MEDS: CETIRIZINE HCL 10 MG TABLET PO PRN (07:57)
[2022-02-04] MEDS: allopurinoL 100 MG TAB PO SCH (07:57)
[2022-02-04] MEDS: DOXYCYCLINE HYCLATE 100 MG CAP PO SCH ×2 (07:57→20:09)
[2022-02-04] MEDS: hydroCHLOROthiazide 25 MG TAB PO SCH (07:58)
[2022-02-04] MEDS: ENOXAPARIN INJ 40 MG/0.4 ML SYR SQ SCH (07:58)
[2022-02-04] MEDS: LOSARTAN POTASSIUM 50 MG TAB PO SCH (07:58)
[2022-02-04] MEDS: ASPIRIN 81 MG ECTAB PO SCH (07:58)
[2022-02-04 08:24] LABS: BUN Creatinine Ratio 26.3 (10-20); Calcium 7.9 mg/dl (8.5-10.1); Est GFR (African American) 99.2 ml/min; Est GFR (Non-African American) 85.6 ml/min; Magnesium 1.9 mg/dl (1.7-2.4); Potassium 3.1 mmol/L (3.5-5.1)
[2022-02-04] MEDS ORDERED: POTASSIUM CHLORIDE CRTAB 20 MEQ TABCR PO ONE (09:14)
--- NOTE | 2022-02-04 17:09 | Hospitalist Progress Note ---
Date of Service February 04, 2022 Assessment & Plan (1) Acute respiratory failure with hypoxia: (2) Pneumonia due to COVID-19 virus: Plan: #. Acute hypoxemic respiratory failure recent to recent COVID-19 pneumonia- improving with conservative management- now down to 3 L during my encounter. First COVID-19 positive as of January 07, not vaccinated, who was admitted 01/20-01/22 with worsening shortness of breath and weakness and was discharged home after being stable on 2L O2 while in hospital. This time presented 01/31 with worsening shortness of breath. Patient reports cough with thick clear sticky phlegm. Admitting Pro-Mac negative, BNP elevated at 180, CXR with worsening bilateral airspace opacities. WBC elevated at admission, not reliable due to history of CLL but already improving CT chest 01/20 1. No CTA evidence for pulmonary embolus. 2. Patchy interstitial and alveolar opacities bilaterally characteristic of a viral type pneumonitis and probable Covid 19 pneumonia. 3. Very small bilateral pleural effusions. Plan- Incentive spirometer, flutter valve,nebs, Mucinex, supplemental oxygen Prn lasix as needed to keep the patient on chip drier side. Strict Is and Os. BMP as needed. Pulm evaluated, doxy from 02/01. No decadron. Wean off oxygen as tolerated- goal saturation 88-92% per pulm Self proning as tolerated #. Chronic lymphocytic leukemia -Originally diagnosed in 2004, follows with Dr. Jamil as an outpatient -Currently chlromabucil on hold during acute illness. D/w Dr. Jamil. -Patient to follow-up with his oncologist as an outpatient # Hypokalemia- repleted. Recheck in am # Left frontal sinusitis- s/p antibiotic course and requesting repeat CT face to reevaluate. Will order. #. Other chronic medical conditions:CKD, HLD, aortic stenosis, history of CVA- stable #. DVT prophylaxis: Lovenox #. Dispo: Stable for DC, might need O2 concentrator upon DC, PT recommending rehab. Admission and Anticipated Discharge Date Admission Date: January 31, 2022 Results & Data Results & Data ([facility]) Vital Signs (Past 12 Hours) Vital Signs Temp Pulse Pulse Resp BP Pulse Ox 02/04/22 15:38 37.4 C 76 16 113/72 95 02/04/22 14:18 101 H 07/04/22 11:21 36.8 C 72 16 85/47 L 100 02/04/22 07:51 36.9 C 65 18 106/66 97 02/04/22 06:10 67
--- NOTE | 2022-02-04 18:31 | CT Scan Report ---
CT sinus fusion wo con HISTORY: 81 years-old Male follow up on left frontal sinusitis acute headache with reported sinusiti s COMPARISON: Brain MRI 07/05/2016 TECHNIQUE: Multiple axial CT images of the paranasal sinuses were obtained without the use of IV cont rast. A dose lowering technique was used consistent with the principals of EMMETT. FINDINGS: Unremarkable soft tissues and orbits. The imaged intracranial structures demonstrate no acute abnorma lity. Age-related involutional changes of the brain parenchyma. Cerebral vascular calcifications. Unc hanged chronic left cerebellar lacunar infarct. There are a few indeterminate cutaneous nodules of the scalp. The patient is edentulous. No acute fac ial bone fracture. The mastoid air cells and middle ear cavities are clear. The right frontal sinus is generally clear. There is mild to moderate polypoid mucosal thickening of the left frontal sinus which is new from the prior study. The frontoethmoidal recesses are patent. Mi ld mucosal thickening of the ethmoid air cells. 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 The sphenoid sinu ses are clear. Patent sphenoethmoidal recesses. The maxillary sinuses are generally clear. The maxill fercho ostiomeatal units are widely patent. There is no large Grace cell. Small left terrie bullosa. No rmal edgar jennifer. Patent nasopharynx. No significant nasal septal bowing. IMPRESSION: 1. Mild to moderate polypoid mucosal thickening of the left frontal sinus. 2. There is only mild additional paranasal sinus disease. 3. Patent sinus outflow tracts. ACT 112: Negative or not required by law. The above report was generated using voice recognition software. It may contain grammatical, syntax o r spelling errors. Electronically signed by: Isael Erickson M.D. 02/04/2022 6:29 PM
[2022-02-05 07:18] LABS: Hematocrit (blood only) 29.5 % (42-52); Hemoglobin 9.7 g/dL (14.0-18.0); Mean Corpuscular Hemoglobin 29.9 pg (25-34); Mean Corpuscular Hgb Conc 32.9 g/dL (32-36); Platelet Count 174 K/uL (130-400); RDW Coefficient of Variation 15.1 % (11.5-14.5); RDW Standard Deviation 49.8 fL (36.4-46.3); Red Blood Count 3.24 M/uL (4.7-6.1); White Blood Count 21.66 K/uL (4.8-10.8)
[2022-02-05 07:37] LABS: BUN Creatinine Ratio 21.6 (10-20); Creatinine Clr Calc Pharmacy 64.9 ml/min; Est GFR (African American) 93.4 ml/min; Est GFR (Non-African American) 80.6 ml/min; Magnesium 1.8 mg/dl (1.7-2.4); Potassium 3.4 mmol/L (3.5-5.1)
[2022-02-05] MEDS ORDERED: POTASSIUM CHLORIDE CRTAB 20 MEQ TABCR PO ONE (07:54)
[2022-02-05] MEDS: ASPIRIN 81 MG ECTAB PO SCH (08:21)
[2022-02-05] MEDS: guaiFENesin 600 MG TABCR PO SCH ×2 (08:21→13:05)
[2022-02-05] MEDS: hydroCHLOROthiazide 25 MG TAB PO SCH (08:21)
[2022-02-05] MEDS: DOXYCYCLINE HYCLATE 100 MG CAP PO SCH ×2 (08:21→20:19)
[2022-02-05] MEDS: ENOXAPARIN INJ 40 MG/0.4 ML SYR SQ SCH (08:22)
[2022-02-05] MEDS: allopurinoL 100 MG TAB PO SCH (08:22)
[2022-02-05] MEDS: CETIRIZINE HCL 10 MG TABLET PO PRN (08:22)
[2022-02-05] MEDS: LOSARTAN POTASSIUM 25 MG TAB PO SCH (09:17)
--- NOTE | 2022-02-05 12:26 | Hospitalist Progress Note ---
Date of Service February 05, 2022 Assessment & Plan (1) Acute respiratory failure with hypoxia: (2) Pneumonia due to COVID-19 virus: Plan: 81 year old male with h/o CLL who was recently admitted for COVID 19 in mid January and discharged on home oxygen came back to the ED on 01/31 for worsening hypoxia and shortness of breath. He was first COVID-19 positive on January 07 and was admitted 01/20-01/22 with worsening shortness of breath and weakness and was discharged home after being stable on 2L O2 while in hospital. #. Acute hypoxemic respiratory failure due to recent COVID-19 pneumonia- - On admission procalcitonin negative, BNP elevated at 180, CXR with worsening bilateral airspace opacities. WBC elevated at admission, not reliable due to history of CLL - CT chest 01/20 1. No CTA evidence for pulmonary embolus. 2. Patchy interstitial and alveolar opacities bilaterally characteristic of a viral type pneumonitis and probable Covid 19 pneumonia. 3. Very small bilateral pleural effusions. Plan- Incentive spirometer, flutter valve, nebs, Mucinex, supplemental oxygen Pulm evaluated, doxy from 02/01. No decadron. Wean off oxygen as tolerated- goal saturation 88-92% per pulm Prn lasix as needed to keep the patient on band saw filer side. Strict I&Os. Self proning as tolerated Consider vest therapy if expectoration/mucus plugging is an issue # SVT- had 2-3 minutes of SVT today with HR in 160s-170s with hypoxia with saturation in 60s and then converted to NSR without intervention. Will replete electrolytes to keep K>4, Mg >2. Avoid hypoxia. Monitor on tele. Will consider echo and cardio eval if recurs. #. Chronic lymphocytic leukemia -Originally diagnosed in 2004, follows with Dr. Jamil as an outpatient -Currently chlorambucil on hold during acute illness. D/w Dr. Jamil. -Patient to follow-up with his oncologist as an outpatient # Hypokalemia- repleted. Recheck in am # Left frontal sinusitis- s/p antibiotic course. Repeat CT sinus with improvement from before- images reviewed with patient and compared with before. DVT prophylaxis: sc Lovenox Dispo: Worsening hypoxia today along with SVT. Will monitor today. Will need 2 step O2 eval. Also might need O2 concentrator upon DC depending. PT recommended rehab but was declined by insurance declined per CM Admission and Anticipated Discharge Date Admission Date: January 31, 2022 Subjective He did not have a good night and does not feel as good today. States he asked for sinus rinse last night but never got it as RN might have been busy. He felt short of breath on ambulation the bathroom and was hypoxic. States he is planning to get sinus rinse today. We reviewed his sinus CT images together in the room and compared with the one from November done at [facility]. Later, he had SVT for about 2 minutes and converted on its own and was hypoxic requiring upto 6 L NC. Physical Exam Physical Exam: General: Sitting comfortably in bed, not in distress, on NC HEENT: EOMI, LISA, MMM Chest: Fair breath sounds bilaterally, no wheezes or crackles CVS: Regular rate and rhythm, normal heart sounds, no murmur Abdomen: Soft, non tender, not distended, normal bowel sounds Neuro: Awake, alert, oriented, conversing well, non focal Extremities: No cyanosis, clubbing or edema Results & Data Results & Data ([facility]) Vital Signs (Past 12 Hours) Vital Signs Temp Pulse Resp BP Pulse Ox 02/05/22 11:23 36.6 C 61 16 111/68 92 02/05/22 08:00 94 02/05/22 06:25 36.8 C 66 20 105/56 L 90 02/05/22 03:39 36.6 C 60 18 108/65 93 Laboratory Results Short CBC 02/05/22 Range/Units 06:50 WBC 21.66 H (4.8-10.8) K/uL Hgb 9.7 L (14.0-18.0) g/dL Hct 29.5 L (42-52) % Plt Count 174 (130-400) K/uL BMP 02/05/22 06:50 Sodium 136 Potassium 3.4 L Chloride 103 Carbon Dioxide 26 BUN 19 Creatinine 0.88 Glucose 90 Calcium 8.0 L Medications Administered Current Inpatient Medications Acetaminophen (Acetaminophen 325 Mg Tab) 650 mg PO Q4H PRN PRN Reason: Pain or Fever Stop: 03/02/22 23:48 Allopurinol (Allopurinol 100 Mg Tab) 200 mg PO QAM [facility]PA Stop: 03/03/22 08:59 Last Admin: 02/05/22 08:22 Dose: 200 mg Documented by: Aspirin (Aspirin 81 Mg Ectab) 81 mg PO DAILY [facility] Stop: 03/03/22 08:59 Last Admin: 02/05/22 08:21 Dose: 81 mg Documented by: Benzonatate (Benzonatate 100 Mg Capsule) 100 mg PO TID PRN PRN Reason: Cough Stop: 03/02/22 23:48 Cetirizine HCl (Cetirizine Hcl 10 Mg Tablet) 5 mg PO DAILY PRN PRN Reason: Allergy Symptoms Stop: 03/02/22 23:48 Last Admin: 02/05/22 08:22 Dose: 5 mg Documented by: Doxycycline Hyclate (Doxycycline Hyclate 100 Mg Cap) 100 mg PO BID [facility] Stop: 02/08/22 16:59 Last Admin: 02/05/22 08:21 Dose: 100 mg Documented by: Enoxaparin Sodium (Enoxaparin Inj 40 Mg/0.4 Ml Syr) 40 mg [facility] [place] Stop: 03/03/22 08:59 Last Admin: 02/05/22 08:22 Dose: 40 mg Documented by: Guaifenesin (Guaifenesin 600 Mg Tabcr) 600 mg PO Q12H [facility] Stop: 03/04/22 07:59 Last Admin: 02/05/22 08:21 Dose: 600 mg Documented by: Hydrochlorothiazide (Hydrochlorothiazide 25 Mg Tab) 12.5 mg PO QAM [facility] Stop: 03/04/22 08:59 Last Admin: 02/05/22 08:21 Dose: 12.5 mg Documented by: Promethazine HCl 12.5 mg/ (Sodium Chloride) 50.5 mls @ 202 mls/hr IV Q6H PRN PRN Reason: Nausea And Vomiting Stop: 03/02/22 23:48 Levalbuterol HCl (Levalbuterol Tartrate 15 Gm Hfa.Aer.Ad) 2 puffs INH QIDR PRN PRN Reason: wheesing/sob Stop: 03/03/22 06:59 Losartan Potassium (Losartan Potassium 25 Mg Tab) 25 mg PO QAM [facility] Stop: 03/07/22 08:59 Last Admin: 02/05/22 09:17 Dose: 25 mg Documented by: Oxycodone HCl (Oxycodone Hcl Ir 5 Mg Tab (Immediate Release)) 5 mg PO Q4H PRN PRN Reason: Pain Stop: 02/14/22 23:48
[2022-02-05] MEDS ORDERED: ALBUT/IPRATROP 3MG/0.5MG NEB 3 ML VIAL NEB PRN (12:30)
[2022-02-05] MEDS: MAGNESIUM OXIDE 400 MG TAB PO SCH (13:05)
[2022-02-05] MEDS ORDERED: OPTIRAY 320 125ml IV ONE (17:23)
--- NOTE | 2022-02-05 18:16 | CT Scan Report ---
CT angio chest PE protocol CLINICAL HISTORY: Worsening hypoxia COMPARISON STUDY: Portable chest from 01/31/2022 and previous CTA chest from 01/20/2022 CT DOSE: 575.70 mGy.cm TECHNIQUE: CT Angio of the chest was performed.followed by image post processing with coronal, and s agittal MIP reformats. Contrast Volume: Optiray 320, 120 ml FINDINGS: Vasculature: There is homogeneous perfusion of the pulmonary vasculature bilaterally. No intraluminal filling defects or evidence for pulmonary embolus is seen. Airway: The airway is clear. No endobronchial lesion is identified. Lungs and pleural: Compared to the previous examination, there has been interval worsening of diffuse interstitial and alveolar groundglass opacities bilaterally again most characteristic of a viral typ e pneumonitis and probable Covid 19 pneumonia. No confluent alveolar opacities or air bronchograms ar e seen. There has been interval development of small bilateral pleural effusions, left greater than right. Mediastinum: There is no evidence for pathologic adenopathy. The heart size is within normal limits. The thoracic aorta is within normal limits. There is no evidence for pericardial effusion. Upper abdomen:The adrenal glands are normal bilaterally. Osseous structures: There is no acute osseous pathology. Impression: 1. There is again no CTA evidence for pulmonary embolus. 2. There has been interval worsening of patchy interstitial and alveolar groundglass opacities bilate rally, again most characteristic of a viral type pneumonitis and probable Covid 19 pneumonia. 3. Interval increase in small bilateral pleural effusions, left greater than right. ACT 112: Negative or not required by law. Electronically signed by: Chris Corea M.D. 02/05/2022 6:13 PM
[2022-02-05] MEDS: POLYETHYLENE (MIRALAX) 17 GM PACK PO SCH (18:26)
[2022-02-05] MEDS: ALBUT/IPRATROP 3MG/0.5MG NEB 3 ML VIAL NEB SCH (19:42)
[2022-02-05] MEDS: SODIUM CHLOR 7% 4 ML NEB NEB SCH (20:00)
[2022-02-05] MEDS: ACYCLOVIR 5% OINT 15 GM TUBE EXT SCH (20:19)
[2022-02-05] MEDS: DOCUSATE SODIUM/SENNA 50/8.6MG TAB PO SCH (20:19)
[2022-02-06] MEDS: guaiFENesin 600 MG TABCR PO SCH ×3 (00:16→20:06)
[2022-02-06] MEDS: SODIUM CHLOR 7% 4 ML NEB NEB SCH ×2 (06:53→19:21)
[2022-02-06] MEDS: ALBUT/IPRATROP 3MG/0.5MG NEB 3 ML VIAL NEB SCH ×4 (06:53→19:21)
[2022-02-06 07:31] LABS: Hematocrit (blood only) 29.2 % (42-52); Hemoglobin 9.6 g/dL (14.0-18.0); Mean Corpuscular Hgb Conc 32.9 g/dL (32-36); Mean Corpuscular Volume 91.3 fL (80-100); Mean Platelet Volume 9.3 fL (7.4-10.4); Platelet Count 186 K/uL (130-400); RDW Coefficient of Variation 15.1 % (11.5-14.5); RDW Standard Deviation 49.4 fL (36.4-46.3); White Blood Count 19.54 K/uL (4.8-10.8)
[2022-02-06] MEDS: DOCUSATE SODIUM/SENNA 50/8.6MG TAB PO SCH ×2 (07:42→20:07)
[2022-02-06] MEDS: POLYETHYLENE (MIRALAX) 17 GM PACK PO SCH (07:43)
[2022-02-06] MEDS: MAGNESIUM OXIDE 400 MG TAB PO SCH (07:43)
[2022-02-06] MEDS: allopurinoL 100 MG TAB PO SCH (07:43)
[2022-02-06] MEDS: ASPIRIN 81 MG ECTAB PO SCH (07:44)
[2022-02-06] MEDS: DOXYCYCLINE HYCLATE 100 MG CAP PO SCH ×2 (07:44→20:06)
[2022-02-06] MEDS: CETIRIZINE HCL 10 MG TABLET PO PRN (07:44)
[2022-02-06] MEDS: ENOXAPARIN INJ 40 MG/0.4 ML SYR SQ SCH (07:45)
[2022-02-06] MEDS: LOSARTAN POTASSIUM 25 MG TAB PO SCH (07:46)
[2022-02-06] MEDS: ACYCLOVIR 5% OINT 15 GM TUBE EXT SCH ×3 (07:48→20:08)
[2022-02-06 07:50] LABS: BUN Creatinine Ratio 18.9 (10-20); Calcium 8.1 mg/dl (8.5-10.1); Creatinine Clr Calc Pharmacy 58.1 ml/min; Est GFR (African American) 92.5 ml/min; Est GFR (Non-African American) 79.8 ml/min; Magnesium 1.8 mg/dl (1.7-2.4); Potassium 3.9 mmol/L (3.5-5.1)
[2022-02-06] MEDS ORDERED: FUROSEMIDE INJ 20 MG/2 ML VIAL IV ONE (14:07)
--- NOTE | 2022-02-06 14:10 | Hospitalist Progress Note ---
Date of Service February 06, 2022 Assessment & Plan (1) Acute respiratory failure with hypoxia: (2) Pneumonia due to COVID-19 virus: Plan: 81 year old male with h/o CLL who was recently admitted for COVID 19 in mid January and discharged on home oxygen came back to the ED on 01/31 for worsening hypoxia and shortness of breath. He was first COVID-19 positive on January 07 and was admitted 01/20-01/22 with worsening shortness of breath and weakness and was discharged home after being stable on 2L O2 while in hospital. CT chest 02/05/22 1. There is again no CTA evidence for pulmonary embolus. 2. There has been interval worsening of patchy interstitial and alveolar groundglass opacities bilaterally, again most characteristic of a viral type pneumonitis and probable Covid 19 pneumonia. 3. Interval increase in small bilateral pleural effusions, left greater than right. #. Acute hypoxemic respiratory failure due to recent COVID-19 pneumonia- improved to 2 L but now back to 6 L NC - On admission procalcitonin negative, BNP elevated at 180, CXR with worsening bilateral airspace opacities. WBC elevated at admission, not reliable due to history of CLL - CTA chest 02/05 due to worsening hypoxia shows no PE but interval worsening of covid 19 PNA as above. Plan- Incentive spirometer, flutter valve, nebs, Mucinex, supplemental oxygen Pulm evaluated, doxy from 02/01. No decadron. Wean off oxygen as tolerated- goal saturation 88-92% per pulm will give 1 dose iv lasix today and see response. Strict I&Os. Self proning as tolerated Continue nebs, hypertonic saline nebs, vest therapy # SVT- had 2-3 minutes of SVT 02/05 with HR in 160s-170s with hypoxia with saturation in 60s and then converted to NSR without intervention. Keep K>4, Mg >2. Avoid hypoxia. Monitor on tele. Will consider echo and cardio eval if recurs. #. Chronic lymphocytic leukemia -Originally diagnosed in 2004, follows with Dr. Jamil as an outpatient -Currently chlorambucil on hold during acute illness. D/w Dr. Jamil. -Patient to follow-up with his oncologist as an outpatient # Hypokalemia- resolved # H/o left frontal sinusitis- s/p antibiotic course. Repeat CT sinus with improvement from before- images reviewed with patient and compared with before. DVT prophylaxis: sc Lovenox Dispo: Hypoxia not improving- continue current management, trial of iv lasix. Will need 2 step O2 eval. Also might need O2 concentrator upon DC depending. PT recommended rehab but was declined by insurance declined per CM Admission and Anticipated Discharge Date Admission Date: January 31, 2022 Subjective Feels okay. He did not have a good night. He could not do the sinus rinse properly last night as his oxygen could not be taken off for the procedure. He felt dyspneic when ambulating to the bathroom. He is bringing some expectoration with the nebs. He is disappointed that the rehab was declined. Physical Exam Physical Exam: General: Sitting comfortably in bed, not in acute distress, on NC HEENT: EOMI, LISA, MMM Chest: Fair breath sounds bilaterally, no wheezes or crackles CVS: Regular rate and rhythm, normal heart sounds, no murmur Abdomen: Soft, non tender, not distended, normal bowel sounds Neuro: Awake, alert, oriented, conversing well, non focal Extremities: No cyanosis, clubbing or edema Results & Data Results & Data ([facility]) Vital Signs (Past 12 Hours) Vital Signs Temp Pulse Pulse Resp BP BP Pulse Ox 02/06/22 11:14 65 20 97 02/06/22 11:13 36.7 C 62 20 107/71 97 02/06/22 07:18 64 02/06/22 06:53 80 18 93 02/06/22 06:31 37.3 C 60 18 114/75 97 02/06/22 02:50 37.1 C 68 20 119/72 99 Laboratory Results Short CBC 02/06/22 Range/Units 06:43 WBC 19.54 H (4.8-10.8) K/uL Hgb 9.6 L (14.0-18.0) g/dL Hct 29.2 L (42-52) % Plt Count 186 (130-400) K/uL BMP 02/06/22 06:43 Sodium 135 L Potassium 3.9 Chloride 101 Carbon Dioxide 28 BUN 17 Creatinine 0.90 Glucose 95 Calcium 8.1 L Medications Administered Current Inpatient Medications Acetaminophen (Acetaminophen 325 Mg Tab) 650 mg PO Q4H PRN PRN Reason: Pain or Fever Stop: 03/02/22 23:48 Acyclovir (Acyclovir 5% Oint 15 Gm Tube) 1 appln EXT TID [facility] Stop: 02/15/22 20:59 Last Admin: 02/06/22 11:19 Dose: 1 appln Documented by: Albuterol (Albut/Ipratrop 3mg/0.5mg Neb 3 Ml Vial) 3 ml NEB QIDR PRN; Protocol PRN Reason: SOB,wheezing Stop: 03/07/22 14:59 Albuterol (Albut/Ipratrop 3mg/0.5mg Neb 3 Ml Vial) 3 ml NEB QIDR COMPA; Protocol Stop: 03/07/22 18:59 Last Admin: 02/06/22 11:14 Dose: 3 ml Documented by: Allopurinol (Allopurinol 100 Mg Tab) 200 mg PO QAM [facility] Stop: 03/03/22 08:59 Last Admin: 02/06/22 07:43 Dose: 200 mg Documented by: Aspirin (Aspirin 81 Mg Ectab) 81 mg PO DAILY [facility] Stop: 03/03/22 08:59 Last Admin: 02/06/22 07:44 Dose: 81 mg Documented by: Benzonatate (Benzonatate 100 Mg Capsule) 100 mg PO TID PRN PRN Reason: Cough Stop: 03/02/22 23:48 Cetirizine HCl (Cetirizine Hcl 10 Mg Tablet) 5 mg PO DAILY PRN PRN Reason: Allergy Symptoms Stop: 03/02/22 23:48 Last Admin: 02/06/22 07:44 Dose: 5 mg Documented by: Doxycycline Hyclate (Doxycycline Hyclate 100 Mg Cap) 100 mg PO BID [facility] Stop: 02/08/22 16:59 Last Admin: 02/06/22 07:44 Dose: 100 mg Documented by: Enoxaparin Sodium (Enoxaparin Inj 40 Mg/0.4 Ml Syr) 40 mg SQ QAM [facility] Stop: 03/03/22 08:59 Last Admin: 02/06/22 07:45 Dose: 40 mg Documented by: Guaifenesin (Guaifenesin 600 Mg Tabcr) 1,200 mg PO Q12H [facility] Stop: 03/04/22 07:59 Last Admin: 02/06/22 11:19 Dose: 1,200 mg Documented by: Hydrochlorothiazide (Hydrochlorothiazide 25 Mg Tab) 12.5 mg PO QAM [facility] Stop: 03/04/22 08:59 Last Admin: 02/05/22 08:21 Dose: 12.5 mg Documented by: Promethazine HCl 12.5 mg/ (Sodium Chloride) 50.5 mls @ 202 mls/hr IV Q6H PRN PRN Reason: Nausea And Vomiting Stop: 03/02/22 23:48 Levalbuterol HCl (Levalbuterol Tartrate 15 Gm Hfa.Aer.Ad) 2 puffs INH QIDR PRN PRN Reason: wheesing/sob Stop: 03/03/22 06:59 Losartan Potassium (Losartan Potassium 25 Mg Tab) [facility] Stop: 03/07/22 08:59 Last Admin: 02/06/22 07:46 Dose: 25 mg Documented by: Magnesium Oxide (Magnesium Oxide 400 Mg Tab) [facility] Stop: 03/07/22 12:29 Last Admin: 02/06/22 07:43 Dose: 400 mg Documented by: Oxycodone HCl (Oxycodone Hcl Ir 5 Mg Tab (Immediate Release)) 5 mg PO Q4H PRN PRN Reason: Pain Stop: 02/14/22 23:48 Polyethylene Glycol (Polyethylene (Miralax) 17 Gm Pack) 17 gm PO DAILY [facility] Stop: 03/07/22 17:59 Last Admin: 02/06/22 07:43 Dose: 17 gm Documented by: Senna/Docusate Sodium (Docusate Sodium/Senna 50/8.6mg Tab) 2 tab PO BID [facility] Stop: 03/07/22 20:59 Last Admin: 02/06/22 07:42 Dose: 2 tab Documented by: Sodium Chloride (Sodium Chlor 7% 4 Ml Neb) 4 ml NEB BIDR [facility] Stop: 03/07/22 18:59 Last Admin: 02/06/22 06:53 Dose: 4 ml Documented by:
[2022-02-06] MEDS ORDERED: Nursing to Pharmacy Communication SCH (19:15)
[2022-02-07] MEDS: ALBUT/IPRATROP 3MG/0.5MG NEB 3 ML VIAL NEB SCH ×4 (07:14→19:14)
[2022-02-07] MEDS: SODIUM CHLOR 7% 4 ML NEB NEB SCH ×2 (07:14→19:14)
[2022-02-07] MEDS: allopurinoL 100 MG TAB PO SCH (08:06)
[2022-02-07] MEDS: ACYCLOVIR 5% OINT 15 GM TUBE EXT SCH ×3 (08:07→22:05)
[2022-02-07] MEDS: LOSARTAN POTASSIUM 25 MG TAB PO SCH (08:07)
[2022-02-07] MEDS: DOXYCYCLINE HYCLATE 100 MG CAP PO SCH ×2 (08:07→22:04)
[2022-02-07] MEDS: ASPIRIN 81 MG ECTAB PO SCH (08:07)
[2022-02-07] MEDS: ENOXAPARIN INJ 40 MG/0.4 ML SYR SQ SCH (08:07)
[2022-02-07] MEDS: MAGNESIUM OXIDE 400 MG TAB PO SCH (08:07)
[2022-02-07] MEDS: guaiFENesin 600 MG TABCR PO SCH ×2 (08:07→22:03)
[2022-02-07] MEDS: POLYETHYLENE (MIRALAX) 17 GM PACK PO SCH (08:07)
[2022-02-07] MEDS: DOCUSATE SODIUM/SENNA 50/8.6MG TAB PO SCH ×2 (08:07→22:03)
[2022-02-07 08:21] LABS: BUN Creatinine Ratio 18.2 (10-20); Calcium 8.6 mg/dl (8.5-10.1); Creatinine Clr Calc Pharmacy 58.4 ml/min; Est GFR (African American) 92.7 ml/min; Magnesium 1.8 mg/dl (1.7-2.4); Potassium 3.8 mmol/L (3.5-5.1)
--- NOTE | 2022-02-07 17:12 | Hospitalist Progress Note ---
Date of Service February 07, 2022 Assessment & Plan (1) Acute respiratory failure with hypoxia: (2) Pneumonia due to COVID-19 virus: Plan: 81 year old male with h/o CLL who was recently admitted for COVID 19 in mid January and discharged on home oxygen came back to the ED on 01/31 for worsening hypoxia and shortness of breath. He was first COVID-19 positive on January 07 and was admitted 01/20-01/22 with worsening shortness of breath and weakness and was discharged home after being stable on 2L O2 while in hospital. CT chest 02/05/22 1. There is again no CTA evidence for pulmonary embolus. 2. There has been interval worsening of patchy interstitial and alveolar groundglass opacities bilaterally, again most characteristic of a viral type pneumonitis and probable Covid 19 pneumonia. 3. Interval increase in small bilateral pleural effusions, left greater than right. #. Acute hypoxemic respiratory failure due to recent COVID-19 pneumonia- improved to 2 L, worsened to 6 L NC and now improving to 4 L - On admission procalcitonin negative, BNP elevated at 180, CXR with worsening bilateral airspace opacities. WBC elevated at admission, not reliable due to history of CLL - CTA chest 02/05 due to worsening hypoxia shows no PE but interval worsening of covid 19 PNA as above. Plan- Incentive spirometer, flutter valve, nebs, Mucinex, supplemental oxygen Pulm evaluated, doxy from 02/01. No decadron. Wean off oxygen as tolerated- goal saturation 88-92% per pulm will consider lasix prn to keep lungs on the afterschool side. Will consider again tomorrow if needed. Self proning as tolerated Continue nebs, hypertonic saline nebs, vest therapy # SVT- had 2-3 minutes of SVT 02/05 with HR in 160s-170s with hypoxia with saturation in 60s and then converted to NSR without intervention. Keep K>4, Mg >2. Avoid hypoxia. Monitor on tele. Will consider echo and cardio eval if recurs. #. Chronic lymphocytic leukemia -Originally diagnosed in 2004, follows with Dr. Jamil as an outpatient -Currently chlorambucil on hold during acute illness. D/w Dr. Jamil. -Patient to follow-up with his oncologist as an outpatient # Hypokalemia- resolved # H/o left frontal sinusitis- s/p antibiotic course. Repeat CT sinus with improvement from before- images reviewed with patient and compared with before. DVT prophylaxis: sc Lovenox Dispo: Hypoxia slow to improve- continue current management, trial of iv lasix. Will need 2 step O2 eval prior to discharge if discharging home. Admission and Anticipated Discharge Date Admission Date: January 31, 2022 Subjective Feels improved today. States he is bringing out phlegm. Dyspnea somewhat improved. No fever, chills, chest pain, shortness of breath. States he urinated a lot with the lasix yesterday. He wanted me to try and see if he can go to the rehab as he thinks his would not be able to take care of him at home currently. Physical Exam Physical Exam: General: Sitting comfortably in bed, not in acute distress, on NC HEENT: EOMI, LISA, MMM Chest: Fair breath sounds bilaterally, no wheezes or crackles CVS: Regular rate and rhythm, normal heart sounds, no murmur Abdomen: Soft, non tender, not distended, normal bowel sounds Neuro: Awake, alert, oriented, conversing well, non focal Extremities: No cyanosis, clubbing or edema Results & Data Results & Data ([facility]) Vital Signs (Past 12 Hours) Vital Signs Temp Pulse Pulse Resp BP BP Pulse Ox 02/07/22 15:48 98 H 02/07/22 15:29 89 19 96 02/07/22 15:09 37.4 C 86 20 100/64 95 02/07/22 11:36 77 18 92 02/07/22 10:55 37.2 C 60 18 110/69 99 02/07/22 07:50 73 02/07/22 07:39 37.2 C 65 18 121/69 95 02/07/22 07:15 72 20 97 Laboratory Results [facility] 02/07/22 07:40 Sodium 136 Potassium 3.8 Chloride 100 Carbon Dioxide 29 BUN 16 Creatinine 0.88 Glucose 100 H Calcium 8.6 Medications Administered Current Inpatient Medications Acetaminophen (Acetaminophen 325 Mg Tab) 650 mg PO Q4H PRN PRN Reason: Pain or Fever Stop: 03/02/22 23:48 Acyclovir (Acyclovir 5% Oint 15 Gm Tube) 1 appln EXT TID [facility] Stop: 02/15/22 20:59 Last Admin: 02/07/22 15:00 Dose: 1 appln Documented by: Albuterol (Albut/Ipratrop 3mg/0.5mg Neb 3 Ml Vial) 3 ml NEB QIDR PRN; Protocol PRN Reason: SOB,wheezing Stop: 03/07/22 14:59 Albuterol (Albut/Ipratrop 3mg/0.5mg Neb 3 Ml Vial) 3 ml NEB QIDR COMPA; Protocol Stop: 03/07/22 18:59 Last Admin: 02/07/22 15:29 Dose: 3 ml Documented by: Allopurinol ([facility]ol 100 Mg Tab) [facility] [place] [facility] [place]: 03/03/22 08:59 Last Admin: 02/07/22 08:06 Dose: 200 mg Documented by: Aspirin (Aspirin 81 Mg Ectab) 81 mg PO DAILY [facility] Stop: 03/03/22 08:59 Last Admin: 02/07/22 08:07 Dose: 81 mg Documented by: Benzonatate (Benzonatate 100 Mg Capsule) 100 mg PO TID PRN PRN Reason: Cough Stop: 03/02/22 23:48 Cetirizine HCl (Cetirizine Hcl 10 Mg Tablet) 5 mg PO DAILY PRN PRN Reason: Allergy Symptoms Stop: 03/02/22 23:48 Last Admin: 02/06/22 07:44 Dose: 5 mg Documented by: Doxycycline Hyclate (Doxycycline Hyclate 100 Mg Cap) 100 mg PO BID [facility] Stop: 02/08/22 16:59 Last Admin: 02/07/22 08:07 Dose: 100 mg Documented by: Enoxaparin Sodium (Enoxaparin Inj 40 Mg/0.4 Ml Syr) 40 [facility] [place] [facility] [place]: 03/03/22 08:59 Last Admin: 02/07/22 08:07 Dose: 40 mg Documented by: Guaifenesin (Guaifenesin 600 Mg Tabcr) 1,200 mg PO Q12H [facility] Stop: 03/04/22 07:59 Last Admin: 02/07/22 08:07 Dose: 1,200 mg Documented by: Hydrochlorothiazide (Hydrochlorothiazide 25 Mg Tab) 12.5 [facility] [place] [facility] [place]: 03/04/22 08:59 Last Admin: 02/05/22 08:21 Dose: 12.5 mg Documented by: Promethazine HCl 12.5 mg/ (Sodium Chloride) 50.5 mls @ 202 mls/hr IV Q6H PRN PRN Reason: Nausea And Vomiting Stop: 03/02/22 23:48 Levalbuterol HCl (Levalbuterol Tartrate 15 Gm Hfa.Aer.Ad) 2 puffs INH QIDR PRN PRN Reason: wheesing/sob Stop: 03/03/22 06:59 Losartan Potassium (Losartan Potassium 25 Mg Tab) 25 mg PO QAM [facility] Stop: 03/07/22 08:59 Last Admin: 02/07/22 08:07 Dose: 25 mg Documented by: Magnesium Oxide (Magnesium Oxide 400 Mg Tab) 400 mg PO QAM [facility] Stop: 03/07/22 12:29 Last Admin: 02/07/22 08:07 Dose: 400 mg Documented by: Oxycodone HCl (Oxycodone Hcl Ir 5 Mg Tab (Immediate Release)) 5 mg PO Q4H PRN PRN Reason: Pain Stop: 02/14/22 23:48 Polyethylene Glycol (Polyethylene (Miralax) 17 Gm Pack) 17 gm PO DAILY [facility] Stop: 03/07/22 17:59 Last Admin: 02/07/22 08:07 Dose: 17 gm Documented by: Senna/Docusate Sodium (Docusate Sodium/Senna 50/8.6mg Tab) 2 tab PO BID [facility] Stop: 03/07/22 20:59 Last Admin: 02/07/22 08:07 Dose: 2 tab Documented by: Sodium Chloride (Sodium Chlor 7% 4 Ml Neb) 4 ml NEB BIDR [facility] Stop: 03/07/22 18:59 Last Admin: 02/07/22 07:14 Dose: 4 ml Documented by:
[2022-02-08] MEDS: ALBUT/IPRATROP 3MG/0.5MG NEB 3 ML VIAL NEB SCH ×2 (07:03→20:00)
[2022-02-08] MEDS: SODIUM CHLOR 7% 4 ML NEB NEB SCH ×2 (07:03→20:00)
[2022-02-08] MEDS: DOXYCYCLINE HYCLATE 100 MG CAP PO SCH (08:21)
[2022-02-08] MEDS: guaiFENesin 600 MG TABCR PO SCH ×2 (08:21→20:58)
[2022-02-08] MEDS: DOCUSATE SODIUM/SENNA 50/8.6MG TAB PO SCH ×2 (08:21→20:58)
[2022-02-08] MEDS: ASPIRIN 81 MG ECTAB PO SCH (08:21)
[2022-02-08] MEDS: allopurinoL 100 MG TAB PO SCH (08:21)
[2022-02-08] MEDS: LOSARTAN POTASSIUM 25 MG TAB PO SCH (08:21)
[2022-02-08] MEDS: ENOXAPARIN INJ 40 MG/0.4 ML SYR SQ SCH (08:21)
[2022-02-08] MEDS: POLYETHYLENE (MIRALAX) 17 GM PACK PO SCH (08:21)
[2022-02-08] MEDS: ACYCLOVIR 5% OINT 15 GM TUBE EXT SCH ×3 (08:22→20:58)
[2022-02-08 08:35] LABS: Hematocrit (blood only) 29.2 % (40.1-51.0); Hemoglobin 9.3 g/dl (14.0-18.0); Mean Corpuscular Hemoglobin 29.1 pg (25.0-34.0); Mean Corpuscular Hgb Conc 31.8 g/dL (32.0-36.0); Mean Corpuscular Volume 91.3 fL (80.0-100.0); Mean Platelet Volume 9.4 fL (9.4-12.4); Platelet Count 197 K/uL (130-400); RDW Coefficient of Variation 15.1 % (11.5-14.5); White Blood Count 15.39 K/ul (4.8-10.8)
[2022-02-08] MEDS: MAGNESIUM OXIDE 400 MG TAB PO SCH (08:55)
[2022-02-08 09:00] LABS: BUN Creatinine Ratio 14.7 (10-20); Calcium 8.6 mg/dl (8.5-10.1); Creatinine Clr Calc Pharmacy 54.1 ml/min; Est GFR (African American) 86.1 ml/min; Est GFR (Non-African American) 74.2 ml/min; Magnesium 1.8 mg/dl (1.7-2.4); Potassium 4.1 mmol/L (3.5-5.1)
--- NOTE | 2022-02-08 14:32 | Cardiology Progress Note ---
Date of Service February 08, 2022 Assessment & Plan (1) PSVT (paroxysmal supraventricular tachycardia): (2) Aortic stenosis: (3) Bilateral interstitial pneumonia: Plan: (1) PSVT (paroxysmal supraventricular tachycardia): -Asymptomatic. -Chronic right bundle branch block observed on EKG, unchanged compared to outpatient tracing September,. Add low-dose beta-hilda, Toprol tartrate 12.5 mg x 1 now, Toprol succinate 25 mg daily starting 02/09/2022. -Atrial arrhythmias likely occurring in setting of ongoing issues with regards to pneumonia. (2) Aortic stenosis: -Patient with history of moderate aortic stenosis most recent echocardiogram August,. -Repeat study pending, images to be reviewed. (3) Bilateral interstitial pneumonia: -Continue care per primary team. DVT prophylaxis: Lovenox 40 mg subcu daily. Admission and Anticipated Discharge Date Admission Date: January 31, 2022 Dharmesh Tirado is an 82-year-old male seen in cardiology consultation per the request of Dr. Mejia for the evaluation of brief episodes of supraventricular tachycardia. Patient has had issues with respiratory insufficiency dating back to when he first tested positive for COVID-19 01/07/2022. He has had multiple emergency room visits and hospitalizations, most recently being readmitted 01/31/2022 for ongoing shortness of breath, need for supplemental oxygen. CT angiogram of the chest performed 02/05/2022 revealed bilateral infiltrates, bilateral small pleural effusions, no pulmonary embolism. Patient is known to the undersigned as I have followed him as an outpatient, with most recent outpatient visit September,.Patient accompanied by his son who is a gastroenterology physician at the bedside. Patient notes ongoing cough productive of sputum, ongoing oxygen requirements, generalized fatigue. He has lost 25 pounds, with weight loss onset prior to his respiratory illness a month ago, but has worsened within the last month with decreased appetite. Patient has apparently had several brief episodes of asymptomatic narrow tachycardia noted on telemetry during his hospital stay consistent with supraventricular tachycardia. Most recent episode took place this morning 02/08/2022 at 9:23 AM with a 20 beat run of supraventricular tachycardia at 170 bpm. Patient has had at least 2 other such episodes in the last few days. All of which have been asymptomatic. At the time of a preoperative evaluation prior to left shoulder replacement in 2019, an echocardiogram has been performed with discordant data with regards to assessment of the aortic valve. Aortic valve is densely calcified on 2D appearance, however Doppler data suggested moderate aortic stenosis. A transesophageal echocardiogram was performed revealing moderate aortic valve stenosis with valve area in the range of 1.4 to 1.6 cm at that time. At the time of the patient's most recent transthoracic study August, [place], Doppler data was once again consistent with moderate aortic stenosis with peak CW velocity of just over 3 m/s. Patient described stable symptoms at the time of follow-up visit September,. Past medical history is also notable for CML. Review of Systems Review of Systems: All systems reviewed & are unremarkable except as noted in HPI & below Physical Exam Constitutional: + ill appearing and + frail appearing Respiratory: Auscultation: + diminished lung sounds (Decreased breath sounds bilaterally at the bases) Cardiovascular: Rate/Rhythm: regular rate and regular rhythm Heart Sounds: normal S1, normal S2 and + murmur (2/6 systolic murmur) Extremities: no edema Gastrointestinal (Abdomen): normal bowel sounds, soft, nontender, no hepatosplenomegaly Neurologic: PERRL, EOMI, accommodation nl, no face palsy, no dysarthria Results & Data ([facility]) Vital Signs (Past 12 Hours) Vital Signs Temp Pulse Pulse Resp BP Pulse Ox Pulse Ox 02/08/22 11:23 37.5 C 74 20 100/63 97 02/08/22 08:07 37.1 C 65 20 101/58 L 92 02/08/22 07:47 76 02/08/22 07:05 69 20 99 02/08/22 03:30 96 02/08/22 03:23 37.1 C 69 18 110/69 96 Laboratory Results CBC 02/08/22 Range/Units 08:00 WBC 15.39 H (4.8-10.8) K/ul RBC 3.20 L (4.63-6.08) M/uL Hgb 9.3 L (14.0-18.0) g/dl Hct 29.2 L (40.1-51.0) % Plt Count 197 (130-400) K/uL Comprehensive Metabolic Panel 02/08/22 Range/Units 08:00 Sodium 136 (136-145) mmol/L Potassium 4.1 (3.5-5.1) mmol/L Chloride 101 (98-107) mmol/L Carbon Dioxide 29 (21-32) mmol/L BUN 14 (6-23) mg/dl Creatinine 0.95 (0.6-1.4) mg/dl Glucose 101 H (70-99(Fasting)) mg/dl Calcium 8.6 (8.5-10.1) mg/dl Intake and Output 02/07/22 02/08/22 02/08/22 22:59 06:59 14:59 Intake Total 300 / 700 300 / 300 Output Total 326 / 326 Balance -26 / 374 300 / 300 Intake: Oral 300 / 700 300 / 300 Output: Urine 325 / 325 # Bowel Movements Other: # Unmeasured Voids 1 Diagnostic Findings EKG 02/08/2022 and reviewed in pendantly reveals sinus rhythm with right bundle branch block, and occasional PVCs.
[2022-02-08] MEDS ORDERED: METOPROLOL TARTRATE 25 MG TAB PO ONE (15:00)
--- NOTE | 2022-02-08 16:15 | Hospitalist Progress Note ---
Date of Service February 08, 2022 Assessment & Plan (1) Acute respiratory failure with hypoxia: (2) Pneumonia due to COVID-19 virus: Plan: 81 year old male with h/o CLL who was recently admitted for COVID 19 in mid January and discharged on home oxygen came back to the ED on 01/31 for worsening hypoxia and shortness of breath. He was first COVID-19 positive on January 07 and was admitted 01/20-01/22 with worsening shortness of breath and weakness and was discharged home after being stable on 2L O2 while in hospital. CT chest 02/05/22 1. There is again no CTA evidence for pulmonary embolus. 2. There has been interval worsening of patchy interstitial and alveolar groundglass opacities bilaterally, again most characteristic of a viral type pneumonitis and probable Covid 19 pneumonia. 3. Interval increase in small bilateral pleural effusions, left greater than right. #. Acute hypoxemic respiratory failure due to recent COVID-19 pneumonia- improved to 2 L, worsened to 6 L NC and now improving to 3 L at rest - On admission procalcitonin negative, BNP elevated at 180, CXR with worsening bilateral airspace opacities. WBC elevated at admission, not reliable due to history of CLL - CTA chest 02/05 due to worsening hypoxia shows no PE but interval worsening of covid 19 PNA as above. Plan- Incentive spirometer, flutter valve, nebs, Mucinex, supplemental oxygen Pulm evaluated, doxy from 02/01. No decadron. 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 Self proning as tolerated Continue nebs, hypertonic saline nebs, vest therapy # SVT- had SVT 02/05 and again today, self limiting, asymptomatic. Keep K>4, Mg >2. Avoid hypoxia. Monitor on tele. Echo ordered. Consulted cardio - started on low dose betablocker per cardio. will monitor on tele #. Chronic lymphocytic leukemia -Originally diagnosed in 2004, follows with Dr. Jamil as an outpatient -Currently chlorambucil on hold during acute illness. D/w Dr. Jamil. -Patient to follow-up with his oncologist as an outpatient # Hypokalemia- resolved # H/o left frontal sinusitis- s/p antibiotic course. Repeat CT sinus with improvement from before- images reviewed with patient and compared with before. DVT prophylaxis: sc Lovenox Dispo: Hypoxia slow to improve- continue current management. Will need 2 step O2 eval prior to discharge. Will likely need SNF. CM following. Updated his son Dr Tirado (lawn service worker) at bedside who is visiting from [place] Admission and Anticipated Discharge Date Admission Date: January 31, 2022 Subjective Feels okay. Continues to bring lots of phlegm per patient. Still feels short of breath with exertion. Had another SVT this morning that converted to NSR on its own but asymptomatic. No fever, chills, chest pain, dizziness. Son at bedside. Physical Exam Physical Exam: General: Sitting comfortably in bed, not in acute distress, on NC HEENT: EOMI, LISA, MMM Chest: Fair breath sounds bilaterally, no wheezes or crackles CVS: Regular rate and rhythm, normal heart sounds Abdomen: Soft, non tender, not distended, normal bowel sounds Neuro: Awake, alert, oriented, conversing well, non focal Extremities: No cyanosis, clubbing or edema Results & Data Results & Data ([facility]) Vital Signs (Past 12 Hours) Vital Signs Temp Pulse Pulse Resp BP Pulse Ox 02/08/22 15:59 37.1 C 71 18 117/70 94 02/08/22 15:24 73 02/08/22 11:23 37.5 C 74 20 100/63 97 02/08/22 08:07 37.1 C 65 20 101/58 L 92 02/08/22 07:47 76 02/08/22 07:05 69 20 99 Laboratory Results Short CBC 02/08/22 Range/Units 08:00 WBC 15.39 H (4.8-10.8) K/ul Hgb 9.3 L (14.0-18.0) g/dl Hct 29.2 L (40.1-51.0) % Plt Count 197 (130-400) K/uL BMP 02/08/22 08:00 Sodium 136 Potassium 4.1 Chloride 101 Carbon Dioxide 29 BUN 14 Creatinine 0.95 Glucose 101 H Calcium 8.6 Medications Administered Current Inpatient Medications Acetaminophen (Acetaminophen 325 Mg Tab) 650 mg PO Q4H PRN PRN Reason: Pain or Fever Stop: 03/02/22 23:48 Acyclovir (Acyclovir 5% Oint 15 Gm Tube) 1 appln EXT TID [facility] Stop: 02/15/22 20:59 Last Admin: 02/08/22 15:11 Dose: 1 appln Documented by: Albuterol (Albut/Ipratrop 3mg/0.5mg Neb 3 Ml Vial) 3 ml NEB QIDR PRN; Protocol PRN Reason: SOB,wheezing Stop: 03/07/22 14:59 Albuterol (Albut/Ipratrop 3mg/0.5mg Neb 3 Ml Vial) 3 ml NEB BIDR [facility]; Protocol Stop: 03/10/22 18:59 Allopurinol ([facility]ol 100 Mg Tab) [facility] Stop: 03/03/22 08:59 Last Admin: 02/08/22 08:21 Dose: 200 mg Documented by: Aspirin (Aspirin 81 Mg Ectab) 81 mg PO DAILY [facility] Stop: 03/03/22 08:59 Last Admin: 02/08/22 08:21 Dose: 81 mg Documented by: Benzonatate (Benzonatate 100 Mg Capsule) 100 mg PO TID PRN PRN Reason: Cough Stop: 03/02/22 23:48 Cetirizine HCl (Cetirizine Hcl 10 Mg Tablet) 5 mg PO DAILY PRN PRN Reason: Allergy Symptoms Stop: 03/02/22 23:48 Last Admin: 02/06/22 07:44 Dose: 5 mg Documented by: Doxycycline Hyclate (Doxycycline Hyclate 100 Mg Cap) 100 mg PO BID [facility] Stop: 02/08/22 16:59 Last Admin: 02/08/22 08:21 Dose: 100 mg Documented by: Enoxaparin Sodium (Enoxaparin Inj 40 Mg/0.4 Ml Syr) 40 mg SQ [facility] [place] Stop: 03/03/22 08:59 Last Admin: 02/08/22 08:21 Dose: 40 mg Documented by: Guaifenesin (Guaifenesin 600 Mg Tabcr) 1,200 mg PO Q12H [facility] Stop: 03/04/22 07:59 Last Admin: 02/08/22 08:21 Dose: 1,200 mg Documented by: Hydrochlorothiazide (Hydrochlorothiazide 25 Mg Tab) 12.5 mg PO QAM [facility] Stop: 03/04/22 08:59 Last Admin: 02/05/22 08:21 Dose: 12.5 mg Documented by: Promethazine HCl 12.5 mg/ (Sodium Chloride) 50.5 mls @ 202 mls/hr IV Q6H PRN PRN Reason: Nausea And Vomiting Stop: 03/02/22 23:48 Levalbuterol HCl (Levalbuterol Tartrate 15 Gm Hfa.Aer.Ad) 2 puffs INH QIDR PRN PRN Reason: wheesing/sob Stop: 03/03/22 06:59 Losartan Potassium (Losartan Potassium 25 Mg Tab) 25 mg PO QAM [facility] Stop: 03/07/22 08:59 Last Admin: 02/08/22 08:21 Dose: 25 mg Documented by: Magnesium Oxide (Magnesium Oxide 400 Mg Tab) 400 mg PO QAM [facility] Stop: 03/07/22 12:29 Last Admin: 02/08/22 08:55 Dose: 400 mg Documented by: Metoprolol Succinate (Metoprolol Succ 25mg Ext Rel Tab) [facility] [place] Stop: 03/11/22 08:59 Oxycodone HCl (Oxycodone Hcl Ir 5 Mg Tab (Immediate Release)) 5 mg PO Q4H PRN PRN Reason: Pain Stop: 02/14/22 23:48 Last Admin: 02/08/22 02:28 Dose: 5 mg Documented by: Polyethylene Glycol (Polyethylene (Miralax) 17 Gm Pack) 17 gm PO DAILY [facility] Stop: 03/07/22 17:59 Last Admin: 02/08/22 08:21 Dose: 17 gm Documented by: Senna/Docusate Sodium (Docusate Sodium/Senna 50/8.6mg Tab) 2 tab PO BID [facility] Stop: 03/07/22 20:59 Last Admin: 02/08/22 08:21 Dose: 2 tab Documented by: Sodium Chloride (Sodium Chlor 7% 4 Ml Neb) 4 ml NEB BIDR [facility] Stop: 03/07/22 18:59 Last Admin: 02/08/22 07:03 Dose: 4 ml Documented by:
--- NOTE | 2022-02-08 23:44 | Electrocardiogram Report ---
Test Reason : Blood Pressure : / mmHG Vent. Rate : 071 BPM Atrial Rate : 071 BPM P-R Int : 172 ms QRS Dur : 132 ms QT Int : 426 ms P-R-T Axes : 027 -03 016 degrees QTc Int : 462 ms Sinus rhythm with frequent Premature ventricular complexes Right bundle branch block Abnormal ECG When compared with ECG of 31-JAN-2022 19:45, Premature atrial complexes are no longer Present Nonspecific T wave abnormality, improved in Inferior leads Nonspecific T wave abnormality no longer evident in Lateral leads Confirmed by Mc Villanueva ([id number]) on 02/08/2022 11:43:34 PM Referred By: REFERRED SELF Confirmed By:Mc Villanueva
[2022-02-09] MEDS: SODIUM CHLOR 7% 4 ML NEB NEB SCH ×2 (07:20→19:11)
[2022-02-09] MEDS: ALBUT/IPRATROP 3MG/0.5MG NEB 3 ML VIAL NEB SCH ×2 (07:20→19:11)
[2022-02-09 07:33] LABS: BUN Creatinine Ratio 13.1 (10-20); Creatinine Clr Calc Pharmacy 61.2 ml/min; Est GFR (African American) 94.5 ml/min; Est GFR (Non-African American) 81.5 ml/min; Magnesium 1.8 mg/dl (1.7-2.4); Potassium 3.5 mmol/L (3.5-5.1)
[2022-02-09] MEDS: POLYETHYLENE (MIRALAX) 17 GM PACK PO SCH (08:40)
[2022-02-09] MEDS: ACYCLOVIR 5% OINT 15 GM TUBE EXT SCH ×3 (08:40→21:02)
[2022-02-09] MEDS: guaiFENesin 600 MG TABCR PO SCH ×2 (08:41→21:00)
[2022-02-09] MEDS: DOCUSATE SODIUM/SENNA 50/8.6MG TAB PO SCH ×2 (08:41→21:01)
[2022-02-09] MEDS: CETIRIZINE HCL 10 MG TABLET PO PRN (08:42)
[2022-02-09] MEDS: ENOXAPARIN INJ 40 MG/0.4 ML SYR SQ SCH (08:42)
[2022-02-09] MEDS: MAGNESIUM OXIDE 400 MG TAB PO SCH (08:43)
[2022-02-09] MEDS: ASPIRIN 81 MG ECTAB PO SCH (08:43)
[2022-02-09] MEDS: LOSARTAN POTASSIUM 25 MG TAB PO SCH (08:43)
[2022-02-09] MEDS: allopurinoL 100 MG TAB PO SCH (08:44)
[2022-02-09] MEDS ORDERED: METOPROLOL SUCC 25MG EXT REL TAB PO SCH (09:00)
--- NOTE | 2022-02-09 16:29 | Hospitalist Progress Note ---
Date of Service February 09, 2022 Assessment & Plan (1) Acute respiratory failure with hypoxia: (2) Pneumonia due to COVID-19 virus: Plan: 81 year old male with h/o CLL who was recently admitted for COVID 19 in mid January and discharged on home oxygen came back to the ED on 01/31 for worsening hypoxia and shortness of breath. He was first COVID-19 positive on January 07 and was admitted 01/20-01/22 with worsening shortness of breath and weakness and was discharged home after being stable on 2L O2 while in hospital. CT chest 02/05/22 1. There is again no CTA evidence for pulmonary embolus. 2. There has been interval worsening of patchy interstitial and alveolar groundglass opacities bilaterally, again most characteristic of a viral type pneumonitis and probable Covid 19 pneumonia. 3. Interval increase in small bilateral pleural effusions, left greater than right. #. Acute hypoxemic respiratory failure due to recent COVID-19 pneumonia- improved to 2 L, worsened to 6 L NC and now on 4 L NC at rest - On admission procalcitonin negative, BNP elevated at 180, CXR with worsening bilateral airspace opacities. WBC elevated at admission, not reliable due to history of CLL - CTA chest 02/05 due to worsening hypoxia shows no PE but interval worsening of covid 19 PNA as above. Plan- Incentive spirometer, flutter valve, nebs, Mucinex, supplemental oxygen Pulm evaluated, doxy from 02/01. No decadron. 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 Self proning as tolerated Continue nebs, hypertonic saline nebs, vest therapy # SVT- had SVT 02/05 and again today, self limiting, asymptomatic. Keep K>4, Mg >2. Avoid hypoxia. Monitor on tele. Echo ordered. Consulted cardio - started on low dose betablocker per cardio. will monitor on tele #. Chronic lymphocytic leukemia -Originally diagnosed in 2004, follows with Dr. Jamil as an outpatient -Currently chlorambucil on hold during acute illness. D/w Dr. Jamil. -Patient to follow-up with his oncologist as an outpatient # Hypokalemia- resolved # H/o left frontal sinusitis- s/p antibiotic course. Repeat CT sinus with improvement from before- images reviewed with patient and compared with before. DVT prophylaxis: sc Lovenox Dispo: Hypoxia slow to improve- continue current management. Will need 2 step O2 eval prior to discharge. Will likely need SNF. CM following. Admission and Anticipated Discharge Date Admission Date: January 31, 2022 Subjective About the same, may be slightly improved. Continues to bring sputum e xpectoration. Still dyspneic when going to the bathroom. Still on 4 L NC. No more SVTs from yesterday. No other issues. Physical Exam Physical Exam: General: Sitting comfortably in bed, not in acute distress, on NC HEENT: EOMI, LISA, MMM Chest: Fair breath sounds bilaterally, no wheezes or crackles CVS: Regular rate and rhythm, normal heart sounds Abdomen: Soft, non tender, not distended, normal bowel sounds Neuro: Awake, alert, oriented, conversing well, non focal Extremities: No cyanosis, clubbing or edema Results & Data Results & Data ([facility]) Vital Signs (Past 12 Hours) Vital Signs Temp Pulse Pulse Resp BP Pulse Ox 02/09/22 15:22 37.0 C 72 17 132/71 97 02/09/22 15:11 70 02/09/22 11:33 37.0 C 71 18 113/70 98 02/09/22 07:27 70 02/09/22 07:24 36.7 C 66 18 107/65 95 02/09/22 07:20 81 18 96 Laboratory Results [facility] 02/09/22 06:28 Sodium 135 L Potassium 3.5 Chloride 100 Carbon Dioxide 30 BUN 11 Creatinine 0.84 Glucose 89 Calcium 8.0 L Medications Administered Current Inpatient Medications Acetaminophen (Acetaminophen 325 Mg Tab) 650 mg PO Q4H PRN PRN Reason: Pain or Fever Stop: 03/02/22 23:48 Acyclovir (Acyclovir 5% Oint 15 Gm Tube) 1 appln EXT TID [facility] Stop: 02/15/22 20:59 Last Admin: 02/09/22 13:08 Dose: 1 appln Documented by: Albuterol (Albut/Ipratrop 3mg/0.5mg Neb 3 Ml Vial) 3 ml NEB QIDR PRN; Protocol PRN Reason: SOB,wheezing Stop: 03/07/22 14:59 Albuterol (Albut/Ipratrop 3mg/0.5mg Neb 3 Ml Vial) 3 ml NEB BIDR [facility]; Protocol Stop: 03/10/22 18:59 Last Admin: 02/09/22 07:20 Dose: 3 ml Documented by: Allopurinol (Allopurinol 100 Mg Tab) 200 mg PO [facility] Stop: 03/03/22 08:59 Last Admin: 02/09/22 08:44 Dose: 200 mg Documented by: Aspirin (Aspirin 81 Mg Ectab) 81 mg PO DAILY [facility] Stop: 03/03/22 08:59 Last Admin: 02/09/22 08:43 Dose: 81 mg Documented by: Benzonatate (Benzonatate 100 Mg Capsule) 100 mg PO TID PRN PRN Reason: Cough Stop: 03/02/22 23:48 Last Admin: 02/09/22 08:41 Dose: 100 mg Documented by: Cetirizine HCl (Cetirizine Hcl 10 Mg Tablet) 5 mg PO DAILY PRN PRN Reason: Allergy Symptoms Stop: 03/02/22 23:48 Last Admin: 02/09/22 08:42 Dose: 5 mg Documented by: Enoxaparin Sodium (Enoxaparin Inj 40 Mg/0.4 Ml Syr) 40 mg SQ [facility] Stop: 03/03/22 08:59 Last Admin: 02/09/22 08:42 Dose: 40 mg Documented by: Guaifenesin (Guaifenesin 600 Mg Tabcr) 1,200 mg PO Q12H [facility] Stop: 03/04/22 07:59 Last Admin: 02/09/22 08:41 Dose: 1,200 mg Documented by: Hydrochlorothiazide (Hydrochlorothiazide 25 Mg Tab) 12.5 mg PO [facility] Stop: 03/04/22 08:59 Last Admin: 02/05/22 08:21 Dose: 12.5 mg Documented by: Promethazine HCl 12.5 mg/ (Sodium Chloride) 50.5 mls @ 202 mls/hr IV Q6H PRN PRN Reason: Nausea And Vomiting Stop: 03/02/22 23:48 Levalbuterol HCl (Levalbuterol Tartrate 15 Gm Hfa.Aer.Ad) 2 puffs INH QIDR PRN PRN Reason: wheesing/sob Stop: 03/03/22 06:59 Losartan Potassium (Losartan Potassium 25 Mg Tab) 25 mg PO [facility] Stop: 03/07/22 08:59 Last Admin: 02/09/22 08:43 Dose: 25 mg Documented by: Magnesium Oxide (Magnesium Oxide 400 Mg Tab) 400 mg PO QAM [facility] Stop: 03/07/22 12:29 Last Admin: 02/09/22 08:43 Dose: 400 mg Documented by: Metoprolol Succinate (Metoprolol Succ 25mg Ext Rel Tab) 25 mg PO QAM [facility] Stop: 03/11/22 08:59 Last Admin: 02/09/22 08:43 Dose: 25 mg Documented by: Oxycodone HCl (Oxycodone Hcl Ir 5 Mg Tab (Immediate Release)) 5 mg PO Q4H PRN PRN Reason: Pain Stop: 02/14/22 23:48 Last Admin: 02/08/22 02:28 Dose: 5 mg Documented by: Polyethylene Glycol (Polyethylene (Miralax) 17 Gm Pack) 17 gm PO DAILY [facility] Stop: 03/07/22 17:59 Last Admin: 02/09/22 08:40 Dose: 17 gm Documented by: Senna/Docusate Sodium (Docusate Sodium/Senna 50/8.6mg Tab) 2 tab PO BID [facility] Stop: 03/07/22 20:59 Last Admin: 02/09/22 08:41 Dose: 2 tab Documented by: Sodium Chloride (Sodium Chlor 7% 4 Ml Neb) 4 ml NEB BIDR [facility] Stop: 03/07/22 18:59 Last Admin: 02/09/22 07:20 Dose: 4 ml Documented by:
[2022-02-09] MEDS ORDERED: METOPROLOL TARTRATE 1 MG/ML VIAL IV STA (17:37)
[2022-02-09] MEDS ORDERED: MAGNESIUM SULFATE / D5W 1 GM/100 ML BAG IV ONE (19:29)
[2022-02-09] MEDS ORDERED: POTASSIUM CHLORIDE CRTAB 20 MEQ TABCR PO STA (19:29)
[2022-02-09] MEDS ORDERED: XOPENEX/ATROVENT 1.25mg/0.5MG NEB COMBO NEB PRN (19:33)
[2022-02-09] MEDS ORDERED: IPRATROPIUM BROMIDE NEB SOLN 0.02% 2.5 ML VIAL INH PRN ×2 (19:45)
[2022-02-09] MEDS ORDERED: LEVALBUTEROL 1.25MG/0.5ML NEB INH PRN (19:45)
--- NOTE | 2022-02-09 19:48 | Communication Note ---
Date of Service: February 09, 2022 7 PM Made aware by RN of SVT lasting 5 minutes. Second episode today as per RN. Episode terminated after patient had a coughing fit during breathing treatment. AP PSVT Increase Toprol-XL frequency from once daily to twice daily Supplement potassium and magnesium Change albuterol to Xopenex Vagal maneuvers as needed Will relay to AM provider.
[2022-02-09] MEDS: METOPROLOL SUCC 25MG EXT REL TAB PO SCH (21:01)
[2022-02-09] MEDS ORDERED: POTASSIUM CHLORIDE CRTAB 20 MEQ TABCR PO ONE (21:30)
[2022-02-10] MEDS: IPRATROPIUM BROMIDE NEB SOLN 0.02% 2.5 ML VIAL INH SCH ×4 (07:42→19:20)
[2022-02-10] MEDS: SODIUM CHLOR 7% 4 ML NEB NEB SCH ×2 (07:42→19:20)
[2022-02-10] MEDS: LEVALBUTEROL 1.25MG/0.5ML NEB INH SCH ×4 (07:42→19:20)
[2022-02-10 08:22] LABS: Hematocrit (blood only) 30.5 % (40.1-51.0); Hemoglobin 9.6 g/dl (14.0-18.0); Mean Corpuscular Hemoglobin 29.4 pg (25.0-34.0); Mean Corpuscular Hgb Conc 31.5 g/dL (32.0-36.0); Mean Corpuscular Volume 93.3 fL (80.0-100.0); Platelet Count 217 K/uL (130-400); RDW Standard Deviation 50.8 fL (36.4-46.3); Red Blood Count 3.27 M/uL (4.63-6.08); White Blood Count 14.52 K/ul (4.8-10.8)
[2022-02-10 08:48] LABS: BUN Creatinine Ratio 12.2 (10-20); Calcium 8.4 mg/dl (8.5-10.1); Creatinine Clr Calc Pharmacy 57.1 ml/min; Est GFR (African American) 91.9 ml/min; Est GFR (Non-African American) 79.3 ml/min; Magnesium 2.2 mg/dl (1.7-2.4); Potassium 4.8 mmol/L (3.5-5.1)
[2022-02-10] MEDS ORDERED: XOPENEX/ATROVENT 1.25mg/0.5MG NEB COMBO NEB SCH (09:00)
[2022-02-10] MEDS: DOCUSATE SODIUM/SENNA 50/8.6MG TAB PO SCH ×2 (09:13→21:58)
[2022-02-10] MEDS: ENOXAPARIN INJ 40 MG/0.4 ML SYR SQ SCH (09:13)
[2022-02-10] MEDS: POLYETHYLENE (MIRALAX) 17 GM PACK PO SCH (09:13)
[2022-02-10] MEDS: guaiFENesin 600 MG TABCR PO SCH ×2 (09:14→21:53)
[2022-02-10] MEDS: METOPROLOL SUCC 25MG EXT REL TAB PO SCH ×2 (09:14→21:54)
[2022-02-10] MEDS: CETIRIZINE HCL 10 MG TABLET PO PRN (09:14)
[2022-02-10] MEDS: allopurinoL 100 MG TAB PO SCH (09:15)
[2022-02-10] MEDS: MAGNESIUM OXIDE 400 MG TAB PO SCH (09:15)
[2022-02-10] MEDS: LOSARTAN POTASSIUM 25 MG TAB PO SCH (09:15)
[2022-02-10] MEDS: ASPIRIN 81 MG ECTAB PO SCH (09:16)
[2022-02-10] MEDS: ACYCLOVIR 5% OINT 15 GM TUBE EXT SCH ×3 (09:16→21:55)
--- NOTE | 2022-02-10 11:36 | Hospitalist Progress Note ---
Date of Service February 10, 2022 Assessment & Plan (1) Acute respiratory failure with hypoxia: (2) Pneumonia due to COVID-19 virus: Plan: 81 year old male with h/o CLL who was recently admitted for COVID 19 in mid January and discharged on home oxygen came back to the ED on 01/31 for worsening hypoxia and shortness of breath. He was first COVID-19 positive on January 07 and was admitted 01/20-01/22 with worsening shortness of breath and weakness and was discharged home after being stable on 2L O2 while in hospital. CT chest 02/05/22 1. There is again no CTA evidence for pulmonary embolus. 2. There has been interval worsening of patchy interstitial and alveolar groundglass opacities bilaterally, again most characteristic of a viral type pneumonitis and probable Covid 19 pneumonia. 3. Interval increase in small bilateral pleural effusions, left greater than right. #. Acute hypoxemic respiratory failure due to recent COVID-19 pneumonia- improved to 2 L, worsened to 6 L NC and now on 4-5 L NC at rest - On admission procalcitonin negative, BNP elevated at 180, CXR with worsening bilateral airspace opacities. WBC elevated at admission, not reliable due to history of CLL - CTA chest 02/05 due to worsening hypoxia shows no PE but interval worsening of covid 19 PNA as above. Plan- Incentive spirometer, flutter valve, nebs, Mucinex, supplemental oxygen Pulm evaluated, doxy from 02/01. No decadron. 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 Self proning as tolerated Continue nebs, hypertonic saline nebs, vest therapy # SVT- has been having multiple episodes of self limiting SVT, 2 yesterday. Asymptomatic. Keep K>4, Mg >2. Avoid hypoxia. Monitor on tele. Seen by cardio- started on toprol which was increased yesterday - started on low dose betablocker per cardio. will monitor on tele #. Chronic lymphocytic leukemia -Originally diagnosed in 2004, follows with Dr. Jamil as an outpatient -Currently chlorambucil on hold during acute illness. D/w Dr. Jamil. -Patient to follow-up with his oncologist as an outpatient # Hypokalemia- resolved # H/o left frontal sinusitis- s/p antibiotic course. Repeat CT sinus with improvement from before- images reviewed with patient and compared with before. DVT prophylaxis: sc Lovenox Dispo: Hypoxia slow to improve- continue current management. Will need 2 step O2 eval prior to discharge. Will likely need SNF. CM following. Admission and Anticipated Discharge Date Admission Date: January 31, 2022 Subjective He had 2 episodes of asymptomatic SVT yesterday. Feels otherwise fine. Still has some dyspnea when walking to the bathroom. Still expectorating phlegm. No fever, chills, nausea, vomiting. Physical Exam Physical Exam: General: Sitting comfortably in bed, not in acute distress, on NC HEENT: EOMI, LISA, MMM Chest: Fair breath sounds bilaterally, no wheezes or crackles CVS: Regular rate and rhythm, normal heart sounds Abdomen: Soft, non tender, not distended, normal bowel sounds Neuro: Awake, alert, oriented, conversing well, non focal Extremities: No cyanosis, clubbing or edema Results & Data Results & Data ([facility]) Vital Signs (Past 12 Hours) Vital Signs Temp Pulse Pulse Resp BP Pulse Ox 02/10/22 07:44 115 H 18 97 02/10/22 07:38 36.5 C 67 18 123/73 100 02/10/22 07:27 68 02/10/22 04:13 71 02/10/22 03:35 37.0 C 56 L 18 95/61 L 96 Laboratory Results Short CBC 02/10/22 Range/Units 08:09 WBC 14.52 H (4.8-10.8) K/ul Hgb 9.6 L (14.0-18.0) g/dl Hct 30.5 L (40.1-51.0) % Plt Count 217 (130-400) K/uL BMP 02/10/22 08:09 Sodium 137 Potassium 4.8 D Chloride 103 Carbon Dioxide 31 BUN 11 Creatinine 0.90 Glucose 97 Calcium 8.4 L Medications Administered Current Inpatient Medications Acetaminophen (Acetaminophen 325 Mg Tab) 650 mg PO Q4H PRN PRN Reason: Pain or Fever Stop: 03/02/22 23:48 Acyclovir (Acyclovir 5% Oint 15 Gm Tube) 1 appln EXT TID [facility] Stop: 02/15/22 20:59 Last Admin: 02/10/22 09:16 Dose: 1 appln Documented by: Allopurinol (Allopurinol 100 Mg Tab) 200 mg PO QAM [facility] Stop: 03/03/22 08:59 Last Admin: 02/10/22 09:15 Dose: 200 mg Documented by: Aspirin (Aspirin 81 Mg Ectab) 81 mg PO DAILY [facility] Stop: 03/03/22 08:59 Last Admin: 02/10/22 09:16 Dose: 81 mg Documented by: Benzonatate (Benzonatate 100 Mg Capsule) 100 mg PO TID PRN PRN Reason: Cough Stop: 03/02/22 23:48 Last Admin: 02/09/22 08:41 Dose: 100 mg Documented by: Cetirizine HCl (Cetirizine Hcl 10 Mg Tablet) 5 mg PO DAILY PRN PRN Reason: Allergy Symptoms Stop: 03/02/22 23:48 Last Admin: 02/10/22 09:14 Dose: 5 mg Documented by: Enoxaparin Sodium (Enoxaparin Inj 40 Mg/0.4 Ml Syr) 40 mg SQ [facility] Stop: 03/03/22 08:59 Last Admin: 02/10/22 09:13 Dose: 40 mg Documented by: Guaifenesin (Guaifenesin 600 Mg Tabcr) 1,200 mg PO Q12H [facility] Stop: 03/04/22 07:59 Last Admin: 02/10/22 09:14 Dose: 1,200 mg Documented by: Hydrochlorothiazide (Hydrochlorothiazide 25 Mg Tab) 12.[facility] [place] Stop: 03/04/22 08:59 Last Admin: 02/05/22 08:21 Dose: 12.5 mg Documented by: Promethazine HCl 12.5 mg/ (Sodium Chloride) 50.5 mls @ 202 mls/hr IV Q6H PRN PRN Reason: Nausea And Vomiting Stop: 03/02/22 23:48 Ipratropium [place] (Ipratropium [place] Neb Soln 0.02% 2.5 Ml Vial) 0.5 mg INH QIDR [facility] Stop: 03/12/22 06:59 Last Admin: 02/10/22 07:42 Dose: 0.5 mg Documented by: Ipratropium [place] (Ipratropium [place] Neb Soln 0.02% 2.5 Ml Vial) 0.5 mg INH Q4R PRN PRN Reason: Shortness Of Breath Or Wheezing Stop: 03/11/22 19:44 Levalbuterol HCl (Levalbuterol Tartrate 15 Gm Hfa.Aer.Ad) 2 puffs INH QIDR PRN PRN Reason: wheesing/sob Stop: 03/03/22 06:59 Levalbuterol HCl (Levalbuterol 1.25mg/0.5ml Neb) 1.25 mg INH QIDR [facility] Stop: 03/12/22 06:59 Last Admin: 02/10/22 07:42 Dose: 1.25 mg Documented by: Levalbuterol HCl (Levalbuterol 1.25mg/0.5ml Neb) 1.25 mg INH Q4R PRN PRN Reason: Shortness Of Breath Or Wheezing Stop: 03/11/22 19:44 Losartan Potassium (Losartan Potassium 25 Mg Tab) 25 mg PO QAM [facility] Stop: 03/07/22 08:59 Last Admin: 02/10/22 09:15 Dose: 25 mg Documented by: Magnesium Oxide (Magnesium Oxide 400 Mg Tab) 400 mg PO QAM [facility] Stop: 03/07/22 12:29 Last Admin: 02/10/22 09:15 Dose: 400 mg Documented by: Metoprolol Succinate (Metoprolol Succ 25mg Ext Rel Tab) 25 mg PO BID [facility] Stop: 03/11/22 19:59 Last Admin: 02/10/22 09:14 Dose: 25 mg Documented by: Oxycodone HCl (Oxycodone Hcl Ir 5 Mg Tab (Immediate Release)) 5 mg PO Q4H PRN PRN Reason: Pain Stop: 02/14/22 23:48 Last Admin: 02/08/22 02:28 Dose: 5 mg Documented by: Polyethylene Glycol (Polyethylene (Miralax) 17 Gm Pack) 17 gm PO DAILY [facility] Stop: 03/07/22 17:59 Last Admin: 02/10/22 09:13 Dose: Not Given Documented by: Senna/Docusate Sodium (Docusate Sodium/Senna 50/8.6mg Tab) 2 tab PO BID [facility] Stop: 03/07/22 20:59 Last Admin: 02/10/22 09:13 Dose: Not Given Documented by: Sodium Chloride (Sodium Chlor 7% 4 Ml Neb) 4 ml NEB BIDR [facility] Stop: 03/07/22 18:59 Last Admin: 02/10/22 07:42 Dose: 4 ml Documented by:
[2022-02-11] MEDS: IPRATROPIUM BROMIDE NEB SOLN 0.02% 2.5 ML VIAL INH SCH ×4 (07:26→19:42)
[2022-02-11] MEDS: LEVALBUTEROL 1.25MG/0.5ML NEB INH SCH ×4 (07:26→19:43)
[2022-02-11] MEDS: SODIUM CHLOR 7% 4 ML NEB NEB SCH ×2 (07:26→19:43)
[2022-02-11] MEDS: ASPIRIN 81 MG ECTAB PO SCH (08:34)
[2022-02-11] MEDS: allopurinoL 100 MG TAB PO SCH (08:34)
[2022-02-11] MEDS: guaiFENesin 600 MG TABCR PO SCH ×2 (08:35→21:32)
[2022-02-11] MEDS: DOCUSATE SODIUM/SENNA 50/8.6MG TAB PO SCH ×2 (08:35→21:31)
[2022-02-11] MEDS: ENOXAPARIN INJ 40 MG/0.4 ML SYR SQ SCH (08:35)
[2022-02-11] MEDS: LOSARTAN POTASSIUM 25 MG TAB PO SCH (08:36)
[2022-02-11] MEDS: METOPROLOL SUCC 25MG EXT REL TAB PO SCH ×2 (08:36→21:39)
[2022-02-11] MEDS: POLYETHYLENE (MIRALAX) 17 GM PACK PO SCH (08:36)
[2022-02-11] MEDS: MAGNESIUM OXIDE 400 MG TAB PO SCH (08:36)
[2022-02-11] MEDS: ACYCLOVIR 5% OINT 15 GM TUBE EXT SCH ×3 (08:37→21:26)
[2022-02-11] MEDS ORDERED: LEVALBUTEROL HCL 1.25 MG/3 ML NEB ONE (11:13)
--- NOTE | 2022-02-11 11:46 | Hospitalist Progress Note ---
Date of Service February 11, 2022 Assessment & Plan (1) Acute respiratory failure with hypoxia: (2) Pneumonia due to COVID-19 virus: Plan: 81 year old male with h/o CLL who was recently admitted for COVID 19 in mid January and discharged on home oxygen came back to the ED on 01/31 for worsening hypoxia and shortness of breath. He was first COVID-19 positive on January 07 and was admitted 01/20-01/22 with worsening shortness of breath and weakness and was discharged home after being stable on 2L O2 while in hospital. CT chest 02/05/22 1. There is again no CTA evidence for pulmonary embolus. 2. There has been interval worsening of patchy interstitial and alveolar groundglass opacities bilaterally, again most characteristic of a viral type pneumonitis and probable Covid 19 pneumonia. 3. Interval increase in small bilateral pleural effusions, left greater than right. #. Acute hypoxemic respiratory failure due to recent COVID-19 pneumonia- improved to 2 L, worsened to 6 L NC and now on 3-4 L NC at rest - On admission procalcitonin negative, BNP elevated at 180, CXR with worsening bilateral airspace opacities. WBC elevated at admission, not reliable due to history of CLL - CTA chest 02/05 due to worsening hypoxia shows no PE but interval worsening of covid 19 PNA as above. Plan- Incentive spirometer, flutter valve, nebs, Mucinex, supplemental oxygen Pulm evaluated, doxy from 02/01, can discontinue at discharge. No decadron. Wean off oxygen as tolerated- goal saturation 88-92% per pulm will consider lasix prn to keep lungs on the chip drier side. Self proning as tolerated Continue nebs, hypertonic saline nebs, vest therapy # SVT- had intermittent self limiting asymptomatic SVTs during the hospital stay, none over past 24 hours. Keep K>4, Mg >2. Avoid hypoxia. Monitor on tele. Seen by cardio- started on toprol which was increased 02/09. #. Chronic lymphocytic leukemia -Originally diagnosed in 2004, follows with Dr. Jamil as an outpatient -Currently chlorambucil on hold during acute illness. D/w Dr. Jamil. -Patient to follow-up with his oncologist as an outpatient # H/o left frontal sinusitis- s/p antibiotic course. Repeat CT sinus with improvement from before- images reviewed with patient and compared with before. DVT prophylaxis: sc Lovenox Dispo: Stable to go to rehab. Will need oxygen at discharge. Admission and Anticipated Discharge Date Admission Date: January 31, 2022 Subjective Feels improving. Feels strength is coming back. Still has SANCHEZ and cough with sputum expectoration. No more SVTs over past 24 hours. Normal oral intake, had BM too. No new issues. Physical Exam Physical Exam: General: Lying comfortably in bed, not in acute distress, on NC HEENT: EOMI, LISA, MMM Chest: Fair breath sounds bilaterally, no wheezes or crackles CVS: Regular rate and rhythm, normal heart sounds Abdomen: Soft, non tender, not distended, normal bowel sounds Neuro: Awake, alert, oriented, conversing well, non focal. Hard of hearing Extremities: No cyanosis, clubbing or edema Results & Data Results & Data ([facility]) Vital Signs (Past 12 Hours) Vital Signs Temp Pulse Pulse Resp BP Pulse Ox 02/11/22 11:17 73 22 97 02/11/22 11:09 36.6 C 63 18 100/66 100 02/11/22 08:03 65 02/11/22 07:31 36.7 C 61 18 112/70 98 02/11/22 07:26 64 20 98 02/11/22 03:18 36.8 C 55 L 18 106/60 99 02/11/22 03:12 75 Medications Administered Current Inpatient Medications Acetaminophen (Acetaminophen 325 Mg Tab) 650 mg PO Q4H PRN PRN Reason: Pain or Fever Stop: 03/02/22 23:48 Acyclovir (Acyclovir 5% Oint 15 Gm Tube) 1 appln EXT TID [facility] Stop: 02/15/22 20:59 Last Admin: 02/11/22 08:37 Dose: 1 appln Documented by: Allopurinol (Allopurinol 100 Mg Tab) 200 mg PO QAM [facility] Stop: 03/03/22 08:59 Last Admin: 02/11/22 08:34 Dose: 200 mg Documented by: Aspirin (Aspirin 81 Mg Ectab) 81 mg PO DAILY [facility] Stop: 03/03/22 08:59 Last Admin: 02/11/22 08:34 Dose: 81 mg Documented by: Benzonatate (Benzonatate 100 Mg Capsule) 100 mg PO TID PRN PRN Reason: Cough Stop: 03/02/22 23:48 Last Admin: 02/09/22 08:41 Dose: 100 mg Documented by: Cetirizine HCl (Cetirizine Hcl 10 Mg Tablet) 5 mg PO DAILY PRN PRN Reason: Allergy Symptoms Stop: 03/02/22 23:48 Last Admin: 02/10/22 09:14 Dose: 5 mg Documented by: Enoxaparin Sodium (Enoxaparin Inj 40 Mg/0.4 Ml Syr) 40 mg SQ QAM [facility] Stop: 03/03/22 08:59 Last Admin: 02/11/22 08:35 Dose: 40 mg Documented by: Guaifenesin (Guaifenesin 600 Mg Tabcr) 1,200 mg PO Q12H [facility] Stop: 03/04/22 07:59 Last Admin: 02/11/22 08:35 Dose: 1,200 mg Documented by: Hydrochlorothiazide (Hydrochlorothiazide 25 Mg Tab) 12.5 mg PO QAM [facility] Stop: 03/04/22 08:59 Last Admin: 02/05/22 08:21 Dose: 12.5 mg Documented by: Promethazine HCl 12.5 mg/ (Sodium Chloride) 50.5 mls @ 202 mls/hr IV Q6H PRN PRN Reason: Nausea And Vomiting Stop: 03/02/22 23:48 Ipratropium [place] (Ipratropium [place] Neb Soln 0.02% 2.5 Ml Vial) 0.5 mg INH QIDR [facility] Stop: 03/12/22 06:59 Last Admin: 02/11/22 11:17 Dose: 0.5 mg Documented by: Ipratropium [place] (Ipratropium [place] Neb Soln 0.02% 2.5 Ml Vial) 0.5 mg INH Q4R PRN PRN Reason: Shortness Of Breath Or Wheezing Stop: 03/11/22 19:44 Levalbuterol HCl (Levalbuterol Tartrate 15 Gm Hfa.Aer.Ad) 2 puffs INH QIDR PRN PRN Reason: wheesing/sob Stop: 03/03/22 06:59 Levalbuterol HCl (Levalbuterol 1.25mg/0.5ml Neb) 1.25 mg INH QIDR [facility] Stop: 03/12/22 06:59 Last Admin: 02/11/22 11:17 Dose: Not Given Documented by: Levalbuterol HCl (Levalbuterol 1.25mg/0.5ml Neb) 1.25 mg INH Q4R PRN PRN Reason: Shortness Of Breath Or Wheezing Stop: 03/11/22 19:44 Losartan Potassium (Losartan Potassium 25 Mg Tab) 25 mg PO QAM [facility] Stop: 03/07/22 08:59 Last Admin: 02/11/22 08:36 Dose: 25 mg Documented by: Magnesium Oxide (Magnesium Oxide 400 Mg Tab) 400 mg PO QAM [facility] Stop: 03/07/22 12:29 Last Admin: 02/11/22 08:36 Dose: 400 mg Documented by: Metoprolol Succinate (Metoprolol Succ 25mg Ext Rel Tab) 25 mg PO BID [facility] Stop: 03/11/22 19:59 Last Admin: 02/11/22 08:36 Dose: 25 mg Documented by: Oxycodone HCl (Oxycodone Hcl Ir 5 Mg Tab (Immediate Release)) 5 mg PO Q4H PRN PRN Reason: Pain Stop: 02/14/22 23:48 Last Admin: 02/08/22 02:28 Dose: 5 mg Documented by: Polyethylene Glycol (Polyethylene (Miralax) 17 Gm Pack) 17 gm PO DAILY [facility] Stop: 03/07/22 17:59 Last Admin: 02/11/22 08:36 Dose: 17 gm Documented by: Senna/Docusate Sodium (Docusate Sodium/Senna 50/8.6mg Tab) 2 tab PO BID [facility] Stop: 03/07/22 20:59 Last Admin: 02/11/22 08:35 Dose: 2 tab Documented by: Sodium Chloride (Sodium Chlor 7% 4 Ml Neb) 4 ml NEB BIDR [facility] Stop: 03/07/22 18:59 Last Admin: 02/11/22 07:26 Dose: 4 ml Documented by:
[2022-02-12] MEDS: LEVALBUTEROL 1.25MG/0.5ML NEB INH SCH ×3 (07:16→20:10)
[2022-02-12] MEDS: SODIUM CHLOR 7% 4 ML NEB NEB SCH ×2 (07:16→20:10)
[2022-02-12] MEDS: IPRATROPIUM BROMIDE NEB SOLN 0.02% 2.5 ML VIAL INH SCH ×3 (07:16→20:10)
[2022-02-12 07:18] LABS: BUN Creatinine Ratio 8.7 (10-20); Calcium 7.9 mg/dl (8.5-10.1); Creatinine Clr Calc Pharmacy 55.9 ml/min; Est GFR (African American) 89.5 ml/min; Est GFR (Non-African American) 77.2 ml/min; Magnesium 2.1 mg/dl (1.7-2.4); Potassium 4.5 mmol/L (3.5-5.1)
[2022-02-12] MEDS: ACYCLOVIR 5% OINT 15 GM TUBE EXT SCH ×3 (08:33→21:36)
[2022-02-12] MEDS: MAGNESIUM OXIDE 400 MG TAB PO SCH (08:34)
[2022-02-12] MEDS: guaiFENesin 600 MG TABCR PO SCH ×2 (08:34→21:37)
[2022-02-12] MEDS: DOCUSATE SODIUM/SENNA 50/8.6MG TAB PO SCH ×2 (08:34→21:36)
[2022-02-12] MEDS: METOPROLOL SUCC 25MG EXT REL TAB PO SCH ×2 (08:34→21:42)
[2022-02-12] MEDS: ASPIRIN 81 MG ECTAB PO SCH (08:35)
[2022-02-12] MEDS: LOSARTAN POTASSIUM 25 MG TAB PO SCH (08:35)
[2022-02-12] MEDS: POLYETHYLENE (MIRALAX) 17 GM PACK PO SCH (08:35)
[2022-02-12] MEDS: allopurinoL 100 MG TAB PO SCH (08:35)
[2022-02-12] MEDS: ENOXAPARIN INJ 40 MG/0.4 ML SYR SQ SCH (08:36)
--- NOTE | 2022-02-12 17:00 | Hospitalist Progress Note ---
Date of Service February 12, 2022 Assessment & Plan (1) Acute respiratory failure with hypoxia: (2) Pneumonia due to COVID-19 virus: Plan: 81 year old male with h/o CLL who was recently admitted for COVID 19 in mid January and discharged on home oxygen came back to the ED on 01/31 for worsening hypoxia and shortness of breath. He was first COVID-19 positive on January 07 and was admitted 01/20-01/22 with worsening shortness of breath and weakness and was discharged home after being stable on 2L O2 while in hospital. He is being managed for the following: CT chest 02/05/22 1. There is again no CTA evidence for pulmonary embolus. 2. There has been interval worsening of patchy interstitial and alveolar groundglass opacities bilaterally, again most characteristic of a viral type pneumonitis and probable Covid 19 pneumonia. 3. Interval increase in small bilateral pleural effusions, left greater than right. #. Acute hypoxemic respiratory failure due to recent COVID-19 pneumonia- improved to 2 L, worsened to 6 L NC and now on 3-4 L NC at rest, some c/o SANCHEZ. - On admission procalcitonin negative, BNP elevated at 180, CXR with worsening bilateral airspace opacities. WBC elevated at admission, not reliable due to history of CLL - CTA chest 02/05 due to worsening hypoxia shows no PE but interval worsening of covid 19 PNA as above. Plan- Incentive spirometer, flutter valve, nebs, Mucinex, supplemental oxygen Pulm evaluated, s/p doxy. No decadron. Wean off oxygen as tolerated- goal saturation 88-92% per pulm will consider lasix prn to keep lungs on the drum drier side. Self proning as tolerated Continue nebs, hypertonic saline nebs, vest therapy # SVT- had intermittent self limiting asymptomatic SVTs during the hospital stay, last one on February 10 little after 7 PM. Keep K>4, Mg >2. Avoid hypoxia. Monitor on tele. Seen by cardio- started on toprol which was increased 02/09. use xopenox for nebs if needed. #. Chronic lymphocytic leukemia -Originally diagnosed in 2004, follows with Dr. Jamil as an outpatient -Currently chlorambucil on hold during acute illness. D/w Dr. Jamil. -Patient to follow-up with his oncologist as an outpatient # H/o left frontal sinusitis- s/p antibiotic course. Repeat CT sinus with improvement from before. DVT prophylaxis: sc Lovenox Dispo: Stable to go to rehab. Will need oxygen at discharge. Admission and Anticipated Discharge Date Admission Date: January 31, 2022 Subjective Patient seen and examined at bedside as a follow-up of acute hypoxemic respiratory failure due to recent COVID-19 pneumonia, SVT, chronic lymphocytic leukemia history of, history of left frontal sinusitis. Patient was lying in bed, on 4 L nasal cannula oxygen, no new acute events overnight. Patient reports eating okay and moving bowels okay. Patient reports feeling some shortness of breath with exertion but otherwise feels better. Patient denies any headache or chest pain or sore throat or cough or palpitation or other review of symptoms. Physical Exam Physical Exam: GENERAL: Alert and oriented x3. NAD, on 4 L nasal cannula oxygen. Hard of hearing. HEENT: No pallor, no icterus. Pupils equal, round and reactive to light. Oral mucosa moist. Scabbed zoster lesion on left lip, no pain. NECK: No JVD, no neck masses. HEART: S1 and S2 heard. Regular rate and rhythm. No murmur, no gallop. RESPIRATORY SYSTEM: Normal AP diameter. No accessory muscle use. No wheezing, no crackles ABDOMEN: Soft, bowel sounds present, nontender, no distention. CENTRAL NERVOUS SYSTEM: No facial droop. Speech is clear. Obeys simple commands. Moves extremities. EXTREMITIES: No edema, no erythema seen. Results & Data Results & Data ([facility]) Vital Signs (Past 12 Hours) Vital Signs Temp Pulse Pulse Resp BP Pulse Ox 02/12/22 16:38 72 02/12/22 15:13 36.9 C 73 19 115/63 97 02/12/22 11:23 36.9 C 70 19 93/58 L 95 02/12/22 10:58 76 18 96 02/12/22 08:15 36.6 C 69 18 112/74 100 02/12/22 07:30 62 02/12/22 07:19 71 16 96
[2022-02-13] MEDS: IPRATROPIUM BROMIDE NEB SOLN 0.02% 2.5 ML VIAL INH SCH ×2 (06:59→19:49)
[2022-02-13] MEDS: SODIUM CHLOR 7% 4 ML NEB NEB SCH ×2 (06:59→19:49)
[2022-02-13] MEDS: LEVALBUTEROL 1.25MG/0.5ML NEB INH SCH ×2 (06:59→19:49)
[2022-02-13] MEDS: METOPROLOL SUCC 25MG EXT REL TAB PO SCH ×2 (09:04→22:03)
[2022-02-13] MEDS: ACYCLOVIR 5% OINT 15 GM TUBE EXT SCH ×3 (09:04→22:03)
[2022-02-13] MEDS: allopurinoL 100 MG TAB PO SCH (09:05)
[2022-02-13] MEDS: LOSARTAN POTASSIUM 25 MG TAB PO SCH (09:05)
[2022-02-13] MEDS: MAGNESIUM OXIDE 400 MG TAB PO SCH (09:05)
[2022-02-13] MEDS: DOCUSATE SODIUM/SENNA 50/8.6MG TAB PO SCH ×2 (09:05→22:04)
[2022-02-13] MEDS: POLYETHYLENE (MIRALAX) 17 GM PACK PO SCH (09:05)
[2022-02-13] MEDS: guaiFENesin 600 MG TABCR PO SCH ×2 (09:06→22:04)
[2022-02-13] MEDS: ENOXAPARIN INJ 40 MG/0.4 ML SYR SQ SCH (09:06)
[2022-02-13] MEDS: ASPIRIN 81 MG ECTAB PO SCH (09:06)
[2022-02-13] MEDS ORDERED: SODIUM CHLORIDE 0.65% NA SOLN 45 ML (OCEAN) PRN (13:05)
--- NOTE | 2022-02-13 16:58 | Hospitalist Progress Note ---
Date of Service February 13, 2022 Assessment & Plan (1) Acute respiratory failure with hypoxia: (2) Pneumonia due to COVID-19 virus: Plan 81 year old male with h/o CLL who was recently admitted for COVID 19 in mid January and discharged on home oxygen came back to the ED on 01/31 for worsening hypoxia and shortness of breath. He was first COVID-19 positive on January 07 and was admitted 01/20-01/22 with worsening shortness of breath and weakness and was discharged home after being stable on 2L O2 while in hospital. He is being managed for the following: CT chest 02/05/22 1. There is again no CTA evidence for pulmonary embolus. 2. There has been interval worsening of patchy interstitial and alveolar groundglass opacities bilaterally, again most characteristic of a viral type pneumonitis and probable Covid 19 pneumonia. 3. Interval increase in small bilateral pleural effusions, left greater than right. #. Acute hypoxemic respiratory failure due to recent COVID-19 pneumonia- improved to 2 L, worsened to 6 L NC and now on 3-4 L NC at rest, some c/o SANCHEZ. - On admission procalcitonin negative, BNP elevated at 180, CXR with worsening bilateral airspace opacities. WBC elevated at admission, not reliable due to history of CLL - CTA chest 02/05 due to worsening hypoxia shows no PE but interval worsening of covid 19 PNA as above. Plan- Incentive spirometer, flutter valve, nebs, Mucinex, supplemental oxygen Pulm evaluated, s/p doxy. No decadron. Wean off oxygen as tolerated- goal saturation 88-92% per pulm will consider lasix prn to keep lungs on the vacuum drier tender side. Self proning as tolerated Continue nebs, hypertonic saline nebs, vest therapy # SVT- had intermittent self limiting asymptomatic SVTs during the hospital stay, last one on February 13 around 1230 hrs for about 4 min while at rest. Keep K>4, Mg >2. Avoid hypoxia. Monitor on tele. Evaluated by cardio- started on toprol which was increased 02/09. use xopenox for nebs if needed. #. Chronic lymphocytic leukemia -Originally diagnosed in 2004, follows with Dr. Jamil as an outpatient -Currently chlorambucil on hold during acute illness. D/w Dr. Jamil. -Patient to follow-up with his oncologist as an outpatient # H/o left frontal sinusitis- s/p antibiotic course. Repeat CT sinus with improvement from before. DVT prophylaxis: sc Lovenox Dispo: Stable to go to rehab. Will need oxygen at discharge. Admission and Anticipated Discharge Date Admission Date: January 31, 2022 Subjective Patient seen and examined at bedside as a follow-up of acute hypoxemic respiratory failure due to recent COVID-19 pneumonia, SVT, h/o chronic lymphocytic leukemia, history of left frontal sinusitis. Patient was lying in bed, on 4 L nasal cannula oxygen, no new acute events overnight. Patient reports eating okay and moving bowels okay. Patient requiring more oxygen during ambulation. Patient denies any headache or chest pain or sore throat or cough or palpitation or other review of symptoms. Around 1230 hrs today, patient had around 4-minute of SVTs up to 160s while patient was at rest, no symptoms, has been in sinus rhythm since then. Physical Exam Physical Exam: GENERAL: Alert and oriented x3. NAD, on 4 L nasal cannula oxygen. Hard of hearing. HEENT: No pallor, no icterus. Pupils equal, round and reactive to light. Oral mucosa moist. Scabbed zoster lesion on left lip, no pain. NECK: No JVD, no neck masses. HEART: S1 and S2 heard. Regular rate and rhythm. No murmur, no gallop. RESPIRATORY SYSTEM: Normal AP diameter. No accessory muscle use. No wheezing, no crackles ABDOMEN: Soft, bowel sounds present, nontender, no distention. CENTRAL NERVOUS SYSTEM: No facial droop. Speech is clear. Obeys simple commands. Moves extremities. EXTREMITIES: No edema, no erythema seen. Results & Data Results & Data ([facility]) Vital Signs (Past 12 Hours) Vital Signs Temp Pulse Pulse Resp BP Pulse Ox O2 Del Method 02/13/22 15:31 68 02/13/22 15:01 36.9 C 65 18 111/65 96 Room Air 02/13/22 12:38 63 108/60 02/13/22 12:36 151 H 93/66 L 02/13/22 12:34 149 H 79/55 L 02/13/22 11:59 36.9 C 65 20 105/66 98 Nasal Cannula 02/13/22 09:20 Nasal Cannula 02/13/22 07:26 36.7 C 92 H 20 112/64 92 Nasal Cannula 02/13/22 07:18 62 02/13/22 06:59 63 18 99 Nasal Cannula 02/13/22 06:05 Nasal Cannula O2 Flow Rate 02/13/22 15:31 02/13/22 15:01 02/13/22 12:38 02/13/22 12:36 02/13/22 12:34 02/13/22 11:59 4 02/13/22 09:20 4 02/13/22 07:26 4 02/13/22 07:18 02/13/22 06:59 6 02/13/22 06:05 4
[2022-02-14 06:55] LABS: BUN Creatinine Ratio 9.4 (10-20); Calcium 8.1 mg/dl (8.5-10.1); Creatinine Clr Calc Pharmacy 60.5 ml/min; Est GFR (Non-African American) 81.1 ml/min; Magnesium 2.1 mg/dl (1.7-2.4); Potassium 4.1 mmol/L (3.5-5.1)
[2022-02-14] MEDS: SODIUM CHLOR 7% 4 ML NEB NEB SCH ×2 (07:21→19:29)
[2022-02-14] MEDS: IPRATROPIUM BROMIDE NEB SOLN 0.02% 2.5 ML VIAL INH SCH ×2 (07:21→19:29)
[2022-02-14] MEDS: LEVALBUTEROL 1.25MG/0.5ML NEB INH SCH ×2 (07:21→19:29)
[2022-02-14] MEDS: METOPROLOL SUCC 25MG EXT REL TAB PO SCH ×2 (08:17→21:56)
[2022-02-14] MEDS: ASPIRIN 81 MG ECTAB PO SCH (08:17)
[2022-02-14] MEDS: POLYETHYLENE (MIRALAX) 17 GM PACK PO SCH (08:17)
[2022-02-14] MEDS: guaiFENesin 600 MG TABCR PO SCH ×2 (08:17→21:56)
[2022-02-14] MEDS: MAGNESIUM OXIDE 400 MG TAB PO SCH (08:18)
[2022-02-14] MEDS: allopurinoL 100 MG TAB PO SCH (08:18)
[2022-02-14] MEDS: LOSARTAN POTASSIUM 25 MG TAB PO SCH (08:18)
[2022-02-14] MEDS: ENOXAPARIN INJ 40 MG/0.4 ML SYR SQ SCH (08:18)
[2022-02-14] MEDS: ACYCLOVIR 5% OINT 15 GM TUBE EXT SCH ×3 (08:19→22:14)
[2022-02-14] MEDS: DOCUSATE SODIUM/SENNA 50/8.6MG TAB PO SCH ×2 (08:19→21:56)
--- NOTE | 2022-02-14 17:39 | Hospitalist Progress Note ---
Date of Service February 14, 2022 Assessment & Plan (1) Acute respiratory failure with hypoxia: (2) Pneumonia due to COVID-19 virus: Plan 81 year old male with h/o CLL who was recently admitted for COVID 19 in mid January and discharged on home oxygen came back to the ED on 01/31 for worsening hypoxia and shortness of breath. He was first COVID-19 positive on January 07 and was admitted 01/20-01/22 with worsening shortness of breath and weakness and was discharged home after being stable on 2L O2 while in hospital. He is being managed for the following: CT chest 02/05/22 1. There is again no CTA evidence for pulmonary embolus. 2. There has been interval worsening of patchy interstitial and alveolar groundglass opacities bilaterally, again most characteristic of a viral type pneumonitis and probable Covid 19 pneumonia. 3. Interval increase in small bilateral pleural effusions, left greater than right. #. Acute hypoxemic respiratory failure due to recent COVID-19 pneumonia- improved to 2 L, worsened to 6 L NC and now on 3-4 L NC at rest, some c/o SANCHEZ. - On admission procalcitonin negative, BNP elevated at 180, CXR with worsening bilateral airspace opacities. WBC elevated at admission, not reliable due to history of CLL - CTA chest 02/05 due to worsening hypoxia shows no PE but interval worsening of covid 19 PNA as above. Plan- Incentive spirometer, flutter valve, nebs, Mucinex, supplemental oxygen Pulm evaluated, s/p doxy. No decadron. Wean off oxygen as tolerated- goal saturation 88-92% per pulm will consider lasix prn to keep lungs on the drier feeder side. Self proning as tolerated Continue nebs, hypertonic saline nebs, vest therapy # SVT- had intermittent self limiting asymptomatic SVTs during the hospital stay, last one on February 13 around 1230 and February 14 around 0030 hrs for about 4-5 min while at rest and sleeping resp. Keep K>4, Mg >2. Avoid hypoxia. Monitor on tele. Evaluated by cardio- started on toprol which was increased 02/09. use xopen ox for nebs if needed. #. Chronic lymphocytic leukemia -Originally diagnosed in 2004, follows with Dr. Jamil as an outpatient -Currently chlorambucil on hold during acute illness. D/w Dr. Jamil. -Patient to follow-up with his oncologist as an outpatient # H/o left frontal sinusitis- s/p antibiotic course. Repeat CT sinus with improvement from before. DVT prophylaxis: sc Lovenox Dispo: Stable to go to rehab. Will need oxygen at discharge. since toprol added, will dc home HCTZ as BP has been good. Admission and Anticipated Discharge Date Admission Date: January 31, 2022 Subjective Patient seen and examined at bedside as a follow-up of acute hypoxemic respiratory failure due to recent COVID-19 pneumonia, SVT, h/o chronic lymphocytic leukemia, history of left frontal sinusitis. Patient was lying in bed, on 4 L nasal cannula oxygen, had asymptomatic SVTs overnight around 0030 hrs. Patient reports eating okay and moving bowels okay. Patient requiring more oxygen during ambulation. Patient denies any headache or chest pain or sore throat or cough or palpitation or other review of symptoms. Physical Exam Physical Exam: GENERAL: Alert and oriented x3. NAD, on 4 L nasal cannula oxygen. Hard of hearing. HEENT: No pallor, no icterus. Pupils equal, round and reactive to light. Oral mucosa moist. Scabbed zoster lesion on left lip, no pain. NECK: No JVD, no neck masses. HEART: S1 and S2 heard. Regular rate and rhythm. No murmur, no gallop. RESPIRATORY SYSTEM: Normal AP diameter. No accessory muscle use. No wheezing, no crackles ABDOMEN: Soft, bowel sounds present, nontender, no distention. CENTRAL NERVOUS SYSTEM: No facial droop. Speech is clear. Obeys simple commands. Moves extremities. EXTREMITIES: No edema, no erythema seen. Results & Data Results & Data ([facility]) Vital Signs (Past 12 Hours) Vital Signs Temp Pulse Pulse Resp BP Pulse Ox O2 Del Method 02/14/22 15:46 72 02/14/22 15:44 36.5 C 58 L 18 102/66 97 Nasal Cannula 02/14/22 15:37 36.5 C 58 L 18 102/66 97 Nasal Cannula 02/14/22 12:47 02/14/22 11:05 36.3 C L 60 20 103/63 97 Nasal Cannula 02/14/22 09:26 36.4 C L 62 18 116/68 90 Nasal Cannula 02/14/22 07:46 Nasal Cannula 02/14/22 07:23 88 22 99 Nasal Cannula 02/14/22 07:12 37.0 C 61 20 111/73 98 Nasal Cannula O2 Flow Rate 02/14/22 15:46 02/14/22 15:44 4 02/14/22 15:37 4 02/14/22 12:47 4 02/14/22 11:05 4 02/14/22 09:26 4 02/14/22 07:46 4 02/14/22 07:23 2 02/14/22 07:12 4
[2022-02-15] MEDS: SODIUM CHLOR 7% 4 ML NEB NEB SCH ×2 (07:13→19:39)
[2022-02-15] MEDS: IPRATROPIUM BROMIDE NEB SOLN 0.02% 2.5 ML VIAL INH SCH ×2 (07:14→19:39)
[2022-02-15] MEDS: LEVALBUTEROL 1.25MG/0.5ML NEB INH SCH ×2 (07:14→19:39)
[2022-02-15 08:24] LABS: BUN Creatinine Ratio 9.9 (10-20); Calcium 8.2 mg/dl (8.5-10.1); Creatinine Clr Calc Pharmacy 56.5 ml/min; Est GFR (African American) 90.6 ml/min; Est GFR (Non-African American) 78.2 ml/min; Magnesium 2.1 mg/dl (1.7-2.4); Potassium 4.2 mmol/L (3.5-5.1)
[2022-02-15] MEDS: DOCUSATE SODIUM/SENNA 50/8.6MG TAB PO SCH ×2 (08:25→20:47)
[2022-02-15] MEDS: guaiFENesin 600 MG TABCR PO SCH ×2 (08:25→20:48)
[2022-02-15] MEDS: ASPIRIN 81 MG ECTAB PO SCH (08:26)
[2022-02-15] MEDS: LOSARTAN POTASSIUM 25 MG TAB PO SCH (08:26)
[2022-02-15] MEDS: allopurinoL 100 MG TAB PO SCH (08:26)
[2022-02-15] MEDS: ENOXAPARIN INJ 40 MG/0.4 ML SYR SQ SCH (08:27)
[2022-02-15] MEDS: MAGNESIUM OXIDE 400 MG TAB PO SCH (08:27)
[2022-02-15] MEDS: METOPROLOL SUCC 25MG EXT REL TAB PO SCH ×2 (08:27→20:48)
[2022-02-15] MEDS: ACYCLOVIR 5% OINT 15 GM TUBE EXT SCH ×2 (08:27→14:07)
[2022-02-15] MEDS: POLYETHYLENE (MIRALAX) 17 GM PACK PO SCH (08:29)
--- NOTE | 2022-02-15 18:08 | Hospitalist Progress Note ---
Date of Service February 15, 2022 Assessment & Plan (1) Acute respiratory failure with hypoxia: (2) Pneumonia due to COVID-19 virus: Plan 81 year old male with h/o CLL who was recently admitted for COVID 19 in mid January and discharged on home oxygen came back to the ED on 01/31 for worsening hypoxia and shortness of breath. He was first COVID-19 positive on January 07 and was admitted 01/20-01/22 with worsening shortness of breath and weakness and was discharged home after being stable on 2L O2 while in hospital. He is being managed for the following: CT chest 02/05/22 1. There is again no CTA evidence for pulmonary embolus. 2. There has been interval worsening of patchy interstitial and alveolar groundglass opacities bilaterally, again most characteristic of a viral type pneumonitis and probable Covid 19 pneumonia. 3. Interval increase in small bilateral pleural effusions, left greater than right. #. Acute hypoxemic respiratory failure due to recent COVID-19 pneumonia- improved to 2 L, worsened to 6 L NC and now on 3-4 L NC at rest, some c/o SANCHEZ. - On admission procalcitonin negative, BNP elevated at 180, CXR with worsening bilateral airspace opacities. WBC elevated at admission, not reliable due to history of CLL - CTA chest 02/05 due to worsening hypoxia shows no PE but interval worsening of covid 19 PNA as above. Plan- Incentive spirometer, flutter valve, nebs, Mucinex, supplemental oxygen Pulm evaluated, s/p doxy. No decadron. Wean off oxygen as tolerated- goal saturation 88-92% per pulm will consider lasix prn to keep lungs on the kier drier side. Self proning as tolerated Continue nebs, hypertonic saline nebs, vest therapy # SVT- had intermittent self limiting asymptomatic SVTs during the hospital stay, last one on February 13 around 1230 and February 14 around 0030 hrs for about 4-5 min while at rest and sleeping resp. Keep K>4, Mg >2. Avoid hypoxia. Monitor on tele. Evaluated by cardio- started on toprol which was increased 02/09. use xopen ox for nebs if needed. #. Chronic lymphocytic leukemia -Originally diagnosed in 2004, follows with Dr. Jamil as an outpatient -Currently chlorambucil on hold during acute illness. D/w Dr. Jamil. -Patient to follow-up with his oncologist as an outpatient # H/o left frontal sinusitis- s/p antibiotic course. Repeat CT sinus with improvement from before. DVT prophylaxis: sc Lovenox Dispo: Stable to go to rehab. Will need oxygen at discharge. since toprol added, will dc home HCTZ as BP has been good. Admission and Anticipated Discharge Date Admission Date: January 31, 2022 Subjective Patient seen and examined at bedside as a follow-up of acute hypoxemic respiratory failure due to recent COVID-19 pneumonia, SVT, h/o chronic lymphocytic leukemia, history of left frontal sinusitis. Patient was lying in bed, on 4 L nasal cannula oxygen, had no SVTs overnight. Patient reports eating okay and moving bowels okay. Patient requiring more oxygen during ambulation upto 6L. Patient denies any headache or chest pain or sore throat or cough or palpitation or other review of symptoms. Physical Exam Physical Exam: GENERAL: Alert and oriented x3. NAD, on 4 L nasal cannula oxygen. Hard of hearing. HEENT: No pallor, no icterus. Pupils equal, round and reactive to light. Oral mucosa moist. Scabbed zoster lesion on left lip, no pain. NECK: No JVD, no neck masses. HEART: S1 and S2 heard. Regular rate and rhythm. No murmur, no gallop. RESPIRATORY SYSTEM: Normal AP diameter. No accessory muscle use. No wheezing, no crackles ABDOMEN: Soft, bowel sounds present, nontender, no distention. CENTRAL NERVOUS SYSTEM: No facial droop. Speech is clear. Obeys simple commands. Moves extremities. EXTREMITIES: No edema, no erythema seen. Results & Data Results & Data ([facility]) Vital Signs (Past 12 Hours) Vital Signs Temp Pulse Pulse Resp BP Pulse Ox O2 Del Method 02/15/22 08:00 Nasal Cannula 02/15/22 16:01 36.5 C 78 16 95/44 L 92 Nasal Cannula 02/15/22 08:00 65 02/15/22 08:03 36.7 C 54 L 16 106/69 97 Nebulizer 02/15/22 07:14 67 22 99 Nasal Cannula O2 Flow Rate 02/15/22 08:00 4 02/15/22 16:01 4 02/15/22 08:00 02/15/22 08:03 02/15/22 07:14 4
[2022-02-15] MEDS ORDERED: LEVALBUTEROL HCL 1.25 MG/3 ML NEB NEB PRN (21:36)
[2022-02-16 08:26] LABS: Potassium 3.9 mmol/L (3.5-5.1)
[2022-02-16] MEDS: ENOXAPARIN INJ 40 MG/0.4 ML SYR SQ SCH (08:29)
[2022-02-16] MEDS: guaiFENesin 600 MG TABCR PO SCH ×2 (08:30→20:11)
[2022-02-16] MEDS: allopurinoL 100 MG TAB PO SCH (08:30)
[2022-02-16] MEDS: POLYETHYLENE (MIRALAX) 17 GM PACK PO SCH (08:31)
[2022-02-16] MEDS: DOCUSATE SODIUM/SENNA 50/8.6MG TAB PO SCH ×2 (08:31→20:10)
[2022-02-16] MEDS: METOPROLOL SUCC 25MG EXT REL TAB PO SCH ×2 (08:31→20:10)
[2022-02-16] MEDS: ASPIRIN 81 MG ECTAB PO SCH (08:31)
[2022-02-16] MEDS: MAGNESIUM OXIDE 400 MG TAB PO SCH (08:31)
[2022-02-16] MEDS: LOSARTAN POTASSIUM 25 MG TAB PO SCH (08:31)
--- NOTE | 2022-02-16 17:28 | Hospitalist Progress Note ---
Date of Service February 16, 2022 Assessment & Plan (1) Acute respiratory failure with hypoxia: (2) Pneumonia due to COVID-19 virus: Plan 81 year old male with h/o CLL who was recently admitted for COVID 19 in mid January and discharged on home oxygen came back to the ED on 01/31 for worsening hypoxia and shortness of breath. He was first COVID-19 positive on January 07 and was admitted 01/20-01/22 with worsening shortness of breath and weakness and was discharged home after being stable on 2L O2 while in hospital. He is being managed for the following: CT chest 02/05/22 1. There is again no CTA evidence for pulmonary embolus. 2. There has been interval worsening of patchy interstitial and alveolar groundglass opacities bilaterally, again most characteristic of a viral type pneumonitis and probable Covid 19 pneumonia. 3. Interval increase in small bilateral pleural effusions, left greater than right. #. Acute hypoxemic respiratory failure due to recent COVID-19 pneumonia- improved to 2 L, worsened to 6 L NC and now on 3-4 L NC at rest, some c/o SANCHEZ. - On admission procalcitonin negative, BNP elevated at 180, CXR with worsening bilateral airspace opacities. WBC elevated at admission, not reliable due to history of CLL - CTA chest 02/05 due to worsening hypoxia shows no PE but interval worsening of covid 19 PNA as above. Plan- Incentive spirometer, flutter valve, nebs, Mucinex, supplemental oxygen Pulm evaluated, s/p doxy. No decadron. Wean off oxygen as tolerated- goal saturation 88-92% per pulm will consider lasix prn to keep lungs on the drier tender side. Self proning as tolerated Continue nebs, hypertonic saline nebs, vest therapy # SVT- had intermittent self limiting asymptomatic SVTs during the hospital stay, last one on February 13 around 1230 and February 14 around 0030 hrs for about 4-5 min while at rest and sleeping resp. Keep K>4, Mg >2. Avoid hypoxia. Monitor on tele. Evaluated by cardio- started on toprol which was increased 02/09. use xopen ox for nebs if needed. #. Chronic lymphocytic leukemia -Originally diagnosed in 2004, follows with Dr. Jamil as an outpatient -Currently chlorambucil on hold during acute illness. D/w Dr. Jamil. -Patient to follow-up with his oncologist as an outpatient # H/o left frontal sinusitis- s/p antibiotic course. Repeat CT sinus with improvement from before. DVT prophylaxis: sc Lovenox Dispo: Stable to go to rehab. Will need oxygen at discharge. since toprol added, will dc home HCTZ as BP has been good. Admission and Anticipated Discharge Date Admission Date: January 31, 2022 Subjective Patient seen and examined at bedside as a follow-up of acute hypoxemic respiratory failure due to recent COVID-19 pneumonia, SVT, h/o chronic lymphocytic leukemia, history of left frontal sinusitis. Patient was lying in bed, on 4 L nasal cannula oxygen, had no SVTs overnight. Patient reports eating okay and moving bowels okay. Patient requiring more oxygen during ambulation upto 6L. Patient denies any headache or chest pain or sore throat or cough or palpitation or other review of symptoms. Physical Exam Physical Exam: GENERAL: Alert and oriented x3. NAD, on 4 L nasal cannula oxygen. Hard of hearing. HEENT: No pallor, no icterus. Pupils equal, round and reactive to light. Oral mucosa moist. Scabbed zoster lesion on left lip, no pain. NECK: No JVD, no neck masses. HEART: S1 and S2 heard. Regular rate and rhythm. No murmur, no gallop. RESPIRATORY SYSTEM: Normal AP diameter. No accessory muscle use. No wheezing, no crackles ABDOMEN: Soft, bowel sounds present, nontender, no distention. CENTRAL NERVOUS SYSTEM: No facial droop. Speech is clear. Obeys simple commands. Moves extremities. EXTREMITIES: No edema, no erythema seen. Results & Data Results & Data ([facility]) Vital Signs (Past 12 Hours) Vital Signs Temp Pulse Pulse Resp BP Pulse Ox O2 Del Method 02/16/22 15:10 36.6 C 69 20 98/68 L 96 02/16/22 14:52 72 02/16/22 11:56 36.9 C 62 20 108/57 L 96 02/16/22 07:41 101 H 02/16/22 07:37 Nasal Cannula 02/16/22 07:25 36.8 C 64 18 114/68 99 Nasal Cannula O2 Flow Rate 02/16/22 15:10 02/16/22 14:52 02/16/22 11:56 02/16/22 07:41 02/16/22 07:37 4 02/16/22 07:25 4
[2022-02-17 07:37] LABS: Potassium 3.9 mmol/L (3.5-5.1)
[2022-02-17] MEDS: METOPROLOL SUCC 25MG EXT REL TAB PO SCH ×2 (08:17→20:07)
[2022-02-17] MEDS: MAGNESIUM OXIDE 400 MG TAB PO SCH (08:17)
[2022-02-17] MEDS: allopurinoL 100 MG TAB PO SCH (08:17)
[2022-02-17] MEDS: LOSARTAN POTASSIUM 25 MG TAB PO SCH (08:17)
[2022-02-17] MEDS: POLYETHYLENE (MIRALAX) 17 GM PACK PO SCH (08:17)
[2022-02-17] MEDS: ASPIRIN 81 MG ECTAB PO SCH (08:17)
[2022-02-17] MEDS: DOCUSATE SODIUM/SENNA 50/8.6MG TAB PO SCH ×2 (08:18→20:07)
[2022-02-17] MEDS: guaiFENesin 600 MG TABCR PO SCH ×2 (08:18→20:07)
[2022-02-17] MEDS: ENOXAPARIN INJ 40 MG/0.4 ML SYR SQ SCH (08:18)
--- NOTE | 2022-02-17 18:11 | Hospitalist Progress Note ---
Date of Service February 17, 2022 Assessment & Plan (1) Acute respiratory failure with hypoxia: (2) Pneumonia due to COVID-19 virus: Plan 81 year old male with h/o CLL who was recently admitted for COVID 19 in mid January and discharged on home oxygen came back to the ED on 01/31 for worsening hypoxia and shortness of breath. He was first COVID-19 positive on January 07 and was admitted 01/20-01/22 with worsening shortness of breath and weakness and was discharged home after being stable on 2L O2 while in hospital. He is being managed for the following: CT chest 02/05/22 1. There is again no CTA evidence for pulmonary embolus. 2. There has been interval worsening of patchy interstitial and alveolar groundglass opacities bilaterally, again most characteristic of a viral type pneumonitis and probable Covid 19 pneumonia. 3. Interval increase in small bilateral pleural effusions, left greater than right. #. Acute hypoxemic respiratory failure due to recent COVID-19 pneumonia- improved to 2 L, worsened to 6 L NC and now on 3-4 L NC at rest, some c/o SANCHEZ. - On admission procalcitonin negative, BNP elevated at 180, CXR with worsening bilateral airspace opacities. WBC elevated at admission, not reliable due to history of CLL - CTA chest 02/05 due to worsening hypoxia shows no PE but interval worsening of covid 19 PNA as above. Plan- Incentive spirometer, flutter valve, nebs, Mucinex, supplemental oxygen Pulm evaluated, s/p doxy. No decadron. Wean off oxygen as tolerated- goal saturation 88-92% per pulm will consider lasix prn to keep lungs on the bobbin drier side. Self proning as tolerated Continue nebs, hypertonic saline nebs, vest therapy # SVT- had intermittent self limiting asymptomatic SVTs during the hospital stay, last one on February 13 around 1230 and February 14 around 0030 hrs for about 4-5 min while at rest and sleeping resp. Keep K>4, Mg >2. Avoid hypoxia. Monitor on tele. Evaluated by cardio- started on toprol which was increased 02/09. use xopen ox for nebs if needed. #. Chronic lymphocytic leukemia -Originally diagnosed in 2004, follows with Dr. Jamil as an outpatient -Currently chlorambucil on hold during acute illness. D/w Dr. Jamil. -Patient to follow-up with his oncologist as an outpatient # H/o left frontal sinusitis- s/p antibiotic course. Repeat CT sinus with improvement from before. DVT prophylaxis: sc Lovenox Dispo: Stable to go to rehab. Will need oxygen at discharge. Pt needs upto 6 L O2 w/ ambulation. since toprol added, will dc home HCTZ as BP has been good. Admission and Anticipated Discharge Date Admission Date: January 31, 2022 Subjective Patient seen and examined at bedside as a follow-up of acute hypoxemic respiratory failure due to recent COVID-19 pneumonia, SVT, h/o chronic lymphocytic leukemia, history of left frontal sinusitis. Patient was lying in bed, on 4 L nasal cannula oxygen, had no SVTs overnight. Patient reports eating okay and moving bowels okay. Patient requiring more oxygen during ambulation upto 6L. Patient denies any headache or chest pain or sore throat or cough or palpitation or other review of symptoms. Physical Exam Physical Exam: GENERAL: Alert and oriented x3. NAD, on 4 L nasal cannula oxygen. Hard of hearing. HEENT: No pallor, no icterus. Pupils equal, round and reactive to light. Oral mucosa moist. Scabbed zoster lesion on left lip, no pain. NECK: No JVD, no neck masses. HEART: S1 and S2 heard. Regular rate and rhythm. No murmur, no gallop. RESPIRATORY SYSTEM: Normal AP diameter. No accessory muscle use. No wheezing, no crackles ABDOMEN: Soft, bowel sounds present, nontender, no distention. CENTRAL NERVOUS SYSTEM: No facial droop. Speech is clear. Obeys simple commands. Moves extremities. EXTREMITIES: No edema, no erythema seen. Results & Data Results & Data ([facility]) Vital Signs (Past 12 Hours) Vital Signs Temp Pulse Pulse Resp BP Pulse Ox O2 Del Method 02/17/22 15:52 36.9 C 70 16 101/55 L 92 Nasal Cannula 02/17/22 14:53 60 02/17/22 11:16 36.9 C 48 L 16 96/62 L 98 Nasal Cannula 02/17/22 07:19 36.8 C 61 16 124/75 99 Nasal Cannula 02/17/22 07:16 65 02/17/22 07:08 Nasal Cannula O2 Flow Rate 02/17/22 15:52 5 07/17/22 14:53 02/17/22 11:16 5 02/17/22 07:19 4 02/17/22 07:16 02/17/22 07:08 4
[2022-02-18 07:24] LABS: Magnesium 2.1 mg/dl (1.7-2.4); Potassium 3.6 mmol/L (3.5-5.1)
[2022-02-18] MEDS: DOCUSATE SODIUM/SENNA 50/8.6MG TAB PO SCH (08:35)
[2022-02-18] MEDS: LOSARTAN POTASSIUM 25 MG TAB PO SCH (08:36)
[2022-02-18] MEDS: guaiFENesin 600 MG TABCR PO SCH (08:36)
[2022-02-18] MEDS: METOPROLOL SUCC 25MG EXT REL TAB PO SCH (08:37)
[2022-02-18] MEDS: allopurinoL 100 MG TAB PO SCH (08:37)
[2022-02-18] MEDS: ASPIRIN 81 MG ECTAB PO SCH (08:37)
[2022-02-18] MEDS: ENOXAPARIN INJ 40 MG/0.4 ML SYR SQ SCH (08:37)
[2022-02-18] MEDS: MAGNESIUM OXIDE 400 MG TAB PO SCH (08:38)
[2022-02-18] MEDS: POLYETHYLENE (MIRALAX) 17 GM PACK PO SCH (08:38)
[2022-02-18] MEDS ORDERED: POTASSIUM CHLORIDE CRTAB 20 MEQ TABCR PO STA (08:52)
--- NOTE | 2022-02-18 13:16 | Discharge Summary ---
Date of Service February 18, 2022 Admission HPI Per Admitting Provider This is an 81-year-old male with PMHx of HTN, HLD, CLL, nonrheumatic aortic valve stenosis, CKD stage III, spinal stenosis, statin intolerance, AAA who presents with worsening shortness of breath. He was seen in the ER on 01/07/22 and was diagnosed with COVID but was sent home with supportive care. He was followed up with his PCP and was prescribed prednisone taper, azithromycin for sinus infection and thinks that this has improved but is requesting follow up CT scan or to see EENT with jeff Lanier. He was recently admitted for COVID 01/20/22 and discharged home on 01/23/22 with supplemental O2 at 2-2.5 L. He has been needing upwards of 2.5 to 3 L despite medications and breathing tools. Today Luis M represents due to worsening shortness of breath and sweats. He reports his symptoms never really improved during last admission. He is coughing up thick clear sticky phlegm throughout the day, denies hemoptysis. No fever or chills, but reports having sweats. He has been using mucinex every 12 hours, nebulizer ever 4 hours, Wearing oxyen 2-2.5 L which is what he discharged on. Reports having a poor appetite, and he has lost 25 lbs in the past 6 months. Pt has been taking his Leukoran as d irected per Dr. Jamil who he follows with for CLL. Admission Exam Per Admitting Provider GENERAL: Comfortable, hard of hearing, no respiratory distress SKIN: Pallor, warm HEENT: Pale palpebral conjunctivae, no ptosis, dry buccal mucosa, nasal cannula in place NECK : Supple, no tenderness CHEST : Decreased breath sounds, no tenderness HEART : RRR, systolic murmur ABDOMEN: Some distention, nontender EXTREMITIES : No LE swelling/tenderness, no other conspicuous deformities noted NEUROLOGIC : Coherent, no facial asymmetry, hard of hearing, no other gross focality Principal Diagnosis Acute hypoxemic respiratory failure due to recent COVID-19 pneumonia A symptomatic SVTs Chronic lymphocytic leukemia History of left frontal sinusitis Discharge Exam GENERAL: Alert and oriented x3. NAD, on 4 L nasal cannula oxygen. Hard of hearing. HEENT: No pallor, no icterus. Pupils equal, round and reactive to light. Oral mucosa moist. Scabbed zoster lesion on left lip, no pain. NECK: No JVD, no neck masses. HEART: S1 and S2 heard. Regular rate and rhythm. No murmur, no gallop. RESPIRATORY SYSTEM: Normal AP diameter. No accessory muscle use. No wheezing, no crackles ABDOMEN: Soft, bowel sounds present, nontender, no distention. CENTRAL NERVOUS SYSTEM: No facial droop. Speech is clear. Obeys simple commands. Moves extremities. EXTREMITIES: No edema, no erythema seen. Discharge Data Allergies Allergy/AdvReac Type Severity Reaction Status Date / Time levofloxacin Allergy Intermediate Hives Verified 01/31/22 19:53 Penicillins Allergy Intermediate Hives Verified 01/31/22 19:53 simvastatin AdvReac Mild elevated Verified 01/31/22 19:53 LFTs Consultations 01/31/22 19:33 ED Decision to Admit Stat 02/01/22 03:33 Consult Pulmonology Routine 02/08/22 11:40 Consult Cardiology Routine Ordered Studies 02/04/22 17:46 CT sinus fusion wo con Routine 02/05/22 16:30 CT angio chest PE protocol Urgent Hospital Course (1) Acute respiratory failure with hypoxia: (2) Pneumonia due to COVID-19 virus: Plan 81 year old male with h/o CLL who was recently admitted for COVID 19 in mid January and discharged on home oxygen came back to the ED on 01/31 for worsening hypoxia and shortness of breath. He was first COVID-19 positive on January 07 and was admitted 01/20-01/22 with worsening shortness of breath and weakness and was discharged home after being stable on 2L O2 while in hospital. He was managed for the following: CT chest 02/05/22 1. There is again no CTA evidence for pulmonary embolus. 2. There has been interval worsening of patchy interstitial and alveolar groundglass opacities bilaterally, again most characteristic of a viral type pneumonitis and probable Covid 19 pneumonia. 3. Interval increase in small bilateral pleural effusions, left greater than right. #. Acute hypoxemic respiratory failure due to recent COVID-19 pneumonia- improved to 2 L, worsened to 6 L NC and now on 3-4 L NC at rest, some c/o SANCHEZ. - On admission procalcitonin negative, BNP elevated at 180, CXR with worsening bilateral airspace opacities. WBC elevated at admission, not reliable due to history of CLL - CTA chest 7/5 due to worsening hypoxia shows no PE but interval worsening of covid 19 PNA as above. Plan- Incentive spirometer, flutter valve, nebs, Mucinex, supplemental oxygen Pulm evaluated, s/p doxy. No decadron. Wean off oxygen as tolerated- goal saturation 88-92% per pulm FR 1.8-2.0 L/day. Self proning as tolerated Continue nebs, hypertonic saline nebs, vest therapy # SVT- had intermittent self limiting asymptomatic SVTs during the hospital stay, last one on February 13 around 1230 and February 14 around 0030 hrs for about 4-5 min while at rest and sleeping resp. Keep K>4, Mg >2. Avoid hypoxia. Monitor on tele. Evaluated by cardio- started on toprol which was increased 02/09. use xopenox for nebs if needed. #. Chronic lymphocytic leukemia -Originally diagnosed in 2004, follows with Dr. Jamil as an outpatient -Currently chlorambucil on hold during acute illness. D/w Dr. Jamil. -Patient to follow-up with his oncologist as an outpatient # H/o left frontal sinusitis- s/p antibiotic course. Repeat CT sinus with improvement from before. Patient being discharged to SNF with following instruction at the point of discharge: Follow-up with your primary care physician within a week time. Continue using incentive spirometer every 1-2 hours while awake at [facility]. Get your blood work CBC, magnesium level, CMP in a week time and have the results forwarded to your primary care physician. Follow-up with your title i paraprofessional as an outpatient for continued management of your CLL. Your hydrochlorothiazide has been stopped and metoprolol twice a day has been added to your medication, your losartan has been decreased from 50 Mg daily to 25 mg daily. Take your medications as prescribed. Total Time Total Time Spent Total Time Spent (In Minutes): 40 Discharge Plan Discharge Items Patient Disposition: Transfer Correction Fac Reason For Visit: RESP FAILURE, COVID Discharge Diagnosis: Acute hypoxemic respiratory failure due to recent COVID-19 pneumonia A symptomatic SVTs Chronic lymphocytic leukemia History of left frontal sinusitis Activity: Resume your previous activity Non-emergency contact: Primary Care Provider Call non-emergency contact if: you have any medication questions, your symptoms worsen and your temperature is above 101 Follow-up/Referrals: Vincent Slaughter MD [Primary Care Provider] - Diet: Regular Fluids: 2000ml (8 cups) Diet Texture: Easy to Chew Addtl Attending Provider Instructions: Because Pending Studies at Discharge: No Stand-Alone Forms: My [facility] Skilled Items Patient informed of condition?: Yes DNR: Yes Discharge Level of Care: Skilled Communicable Disease: No Discharge Prognosis: Stable Lines: None Urinary Catheter: No Medications and DC Order Prescriptions: New losartan 25 mg Tablet 25 mg PO QAM Qty: 30 0RF metoprolol succinate 25 mg Tablet Extended Release 24 Hr 25 mg PO BID Qty: 60 0RF Saline Mist 0.65 % Aerosol,[place] 2 spray NA TID PRN (Reason: dry nasal passages) Qty: 45 0RF magnesium oxide 400 mg (241.3 mg magnesium) Tablet 400 mg PO QAM Qty: 30 0RF Continued cetirizine [Zyrtec] 10 mg Tablet 5 mg PO DAILY PRN (Reason: Allergy Symptoms) aspirin 81 mg Tablet,Delayed Release (Dr/Ec) 81 mg PO DAILY benzonatate 100 mg capsule 100 mg PO DIRECTED PRN (Reason: Cough) guaifenesin [Mucinex] 600 mg Tablet Extended Release 12hr 600 mg PO Q12H PRN (Reason: Congestion) oxycodone-acetaminophen [Percocet] 5-325 mg Tablet 1 tab PO DIRECTED PRN (Reason: Pain) Leukeran 2 mg tablet 2 mg PO DAILY Rx Instructions: MUST BE REFRIGERATED. allopurinol 100 mg tablet 200 mg PO QAM Rx Instructions: PT PT'S SPOUSE "HAVEN'T GIVE IT TO HIM FOR ABOUT A WEEK". acetaminophen [Tylenol Extra Strength] 500 mg Tablet 1,000 mg PO Q6H PRN (Reason: Pain) albuterol sulfate 90 mcg/actuation HFA aerosol inhaler 2 puff INHALATION Q4 PRN (Reason: Shortness Of Breath Or Wheezing) Discontinued losartan [Cozaar] 50 mg Tablet 50 mg PO QAM Rx Instructions: PER PT'S SPOUSE "DID NOT GIVE D/T B/P BEING LOWER". hydrochlorothiazide 12.5 mg Tablet 12.5 mg PO QAM acetaminophen 650 mg Tablet Extended Release 1,300 mg PO HS PRN (Reason: Pain) Discharge Orders: Discharge Order (Routine); Ordered 07/18/22 Ordered By: Idris Pepe Admission Data Admit Date/Time: 01/31/22 22:06 Attending Provider: Idris Pepe Admit Provider: Nazario Stevens Primary Care Provider: Vincent Slaughter Other Providers: Nazario Stevens ; Meet Manning ; Rajinder Doran ; Arvind Sousa ; Khang Connell ; Brianna Elliott ; Cu[place]ht[place] Jo ; [facility]
== END 2022-02-18 14:53 | DRG 177 ==
LOC: ED 18:02 → SUATTDRO 22:06 → 2E 22:06 → 2W 02-02 16:20

== ENCOUNTER 2024-08-26 08:29 | Inpatient (IN) ==
[2024-08-26] MEDS: SODIUM CHLORIDE 0.9% 500 ML IV ONE ×2 (09:13→11:48)
--- NOTE | 2024-08-26 09:16 | XRay Report ---
XR chest 1V portable HISTORY: 84 years-old Male Chest pain, nonspecific COMPARISON: 01/31/2022 TECHNIQUE: AP view the chest FINDINGS: Cardiac silhouette is enlarged. Aortic valvular endograft. Left subclavian pacer. Chronic interstitia l coarsening without pneumothorax, pleural effusion or overt pulmonary edema. Left shoulder arthropla sty. 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 Numerous punctate metallic density shrapnel foc i of the chest redemonstrated. IMPRESSION: 1. Cardiomegaly with chronic interstitial lung disease. 2. No acute process of the chest identified. ACT 112: Negative or not required by law. The above report was generated using voice recognition software. It may contain grammatical, syntax o r spelling errors. Electronically signed by: Isael Erickson M.D. 08/26/2024 9:15 AM
--- OUTSIDE RECORDS SUMMARY | 2024-08-26 09:37 | External Medical Summary | Summary of Care ---
Author Name Unknown Organization [facility] Address [address] [place] [address] Phone [phone] Care Team Providers Care Senior Net Architect Name Role Phone Vincent Slaughter MD Primary Care Provider + Reason for Visit * Reason Comments Medication Management Encounter Details Date Type Department Care Team (Late st Contact Info) Description 08/06/2024 9:00 AM [facility] Pharmacy Pharmacy Hematology Oncology [facility] [address], [place] [id number] [facility] [place] 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 As needed. About every 2 days.. 30 Tab 7 Active aspirin 81 MG chewable tablet Take 1 Tablet by mouth in the morning. Takes every other day . 100 Tab 5 8 Active Triamcinolone Acetonide 55 MCG/ACT Nasal Aerosol Administer into nostril 2 Sprays in the morning AND 2 Sprays before bedtime. 16.9 mL 12 2 Active ProAir HFA 108 (90 Base) MCG/ACT Inhalation Aerosol SolutionIndicatio ns:COVID-19 virus infection Inhale by mouth 2 Puffs every 4 hours as needed for Wheezing. 18 g 5 2 Active Spacer/Aero-Holdi ng Chambers DeviceIndications :Pneumonia due to COVID-19 virus Use with inhaler as directed . 1 Each 2 Active oxyCODONE-Acetami nophen 5-325 MG Oral Tablet (Percocet)Indicat ions:Persistent headaches Take 1 Tablet by mouth every 6 hours as needed for Pain, Breakthrough. 1 TABLET EVERY 6 HOURS NEEDED 60 Tablet 3 Active Azelastine HCl 0.1 % Nasal Solution (Astelin) Administer 1 [place] into nostril in the morning and 1 [place] before bedtime. 30 mL 12 3 Active Colchicine 0.6 MG Oral TabletIndications :Idiopathic chronic gout of multiple sites without tophus Take 1 Tablet by mouth in the morning. 30 Tablet 5 3 Active Triamcinolone Acetonide 0.1 % External Ointment (Aristocort) APPLY TOPICALLY TO AFFECTED AREA TWICE A DAY FOR 14 DAYS 15 g 4 Active Doxycycline Monohydrate 100 MG Oral Capsule Take 1 Capsule by mouth in the morning and 1 Capsule before bedtime. 60 Capsule 5 4 Active Trelegy Ellipta 200-62.5-25 MCG/ACT Aerosol Powder Breath Activated (Fluticasone-Umec lidinium-Vilanter ol)Indications:Br onchiectasis without complication (HCC),Chronic bronchitis, unspecified chronic bronchitis type (HCC),COPD (chronic obstructive pulmonary disease) with chronic bronchitis (HCC),ILD (interstitial lung disease) (HCC) Inhale 1 Puff by mouth in the morning. 60 Blister Dosing Unit 3 4 Active Metoprolol Succinate ER 25 MG Oral Tablet Extended Release 24 Hour (toPROL XL)Indications:As cending aorta dilatation (HCC) TAKE 1 TABLET BY MOUTH TWICE DAILY every morning and before bedtime 180 Tablet 1 4 Active Fexofenadine HCl 180 MG Oral Tablet (Yolanda) Take 1 Tablet by mouth in the morning. Active Montelukast Sodium 10 MG Oral Tablet (Singulair)Indica tions:Post-nasal drainage,Allergic rhinitis, unspecified seasonality, unspecified trigger Take 1 Tablet by mouth in the morning. 30 Tablet 5 4 Active Losartan Potassium 50 MG Oral Tablet (Cozaar)Indicatio ns:HTN, goal below 140/90 TAKE 1 TABLET BY MOUTH EVERY MORNING 30 Tablet 5 4 Active Chlorambucil 2 MG Oral Tablet (Leukeran)Indicat ions:CLL (chronic lymphocytic leukemia) (HCC) Take 1 Tablet by mouth in the morning. Take medication on an empty stomach.. 30 Tablet 5 07/29/2024 2:54 PM EST 4 Active Allopurinol 100 MG Oral Tablet (Zyloprim)Indicat ions:Idiopathic chronic gout of multiple sites without tophus Take 1 Tablet by mouth in the morning. 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 Complete heart block 01/06/2023 S/P placement of cardiac pacemaker 01/06/2023 Thrombocytopenia 12/27/2022 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 m (igm) 0 11/07/2022 COPD, group B, by GOLD 2017 classification 10/14 Overview: Per COPD GOLD Classification ILD (interstitial lung disease) 09/11/2022 COPD (chronic obstructive pu lmonary disease) with chronic bronchitis 09/11/2022 History of 2019 novel coronavirus disease (COVID -19) 05/07/2022 PSVT (paroxysmal supraventricular tachycardia) 0 03/14/2022 Chronic kidney disease, stage 3a 01/16/2021 Overview: Per CKD protocol Benign hypertension with stage 3a chronic kidney disease 12/12/2020 Overview: Per CKD protocol Nonrheumatic aortic valve stenosis 06/08/2020 Ascending aorta dilatation 06/08/2020 Hx of nonmelanoma skin cancer 11/16/2019 Overview (03/17/2023): SCC L neck 01/2023, SCC R frontal scalp 04/2022, SCC L vertex 03/2022, BCC L nasal bridge 12/2019, SCC R mid helix 07/2019, SCCIS R frontal scalp 07/2019 Hx of actinic keratosis 11/16/2019 CLL (chronic lymphocytic leukemia) 07/08/2018 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 CEREBROVASCULAR DZ, POST-STROKE 03/02/2009 Overview (03/02/2009): Modified per CVA protocol #8. 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 Mri 01/14/2007 Mri done at [facility] Statin intolerance 07/27/2007 Overview (07/27/2007): Hepatitis with Zocor Other sleep apnea 06/01/2001 documented as of this encounter (statuses as of 08/06/2024) Resolved Problems Problem Noted Date Diagnosed Date Resolved Date Benign hypertension with CKD (chronic kidney disease) stage III 07/01/2017 12/14/2020 Overview: Per CKD protocol Rib fractures 12/05/2014 07/01/2017 Thoracic compression fracture 11/26/2013 12/31/2017 Kidney disease, chronic, sta ge III (GFR 30-59 ml/min) 09/27/2013 11/14/2017 Overview: Per CKD protocol #1 CEREBROVASCULAR DZ, POST-STROKE 11/15/2008 03/02/2009 Overview (03/02/2009): Modified per CVA protocol #8. 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 Mri 01/14/2007 Mri done at [facility] Cerebrovascular event, ill-d efined, within last 8 weeks 02/23/2007 11/17/2008 Overview (11/17/2008): Modified per CVA protocol #8 Chronic rhinitis 09/16/2005 12/31/2017 Deviated nasal septum 03/27/20052017 Acquired deformity of nose 03/27/2005 1 08/31/2016 NASAL & SINUS DIS NEC 03/27/20052016 Other chronic sinusitis 03/27/200508/2018 CHRONIC LYMPHOID LEUKEMIA [facility] MENTION OF REMISSION 02/25/2005 04/14/2018 ADVANCE DIRECTIVE INFORMATION 01/04/2005 11/07/2022 Overview (01/04/2005): No, Advance Directive brochure given to patient at prior appointment. Chest pain 11/20/2004 07/01/2017 FRACTURE NOS-OPEN 03/11/2002 12/31/2017 Calculus of kidney 06/01/2001 9 Dyslipidemia, goal to be determined 02/20/2011 Hyperparathyroidism 01/01/20 18 Overview (11/14/2015): ICD-10 update of inactive term HYPERCALCEMIA 12/24/2016 History of colonic polyps Overview (05/05/2017): ICD-10 update of inactive term Other allergic rhinitis 08/2018 Overview (05/27/2017): ICD-10 update of inactive term HYPERTENSION NOS 06/26/2009 Overview (06/26/2009): Modified per HTN protocol #16. documented as of this encounter (statuses as of 08/06/2024) Immunizations Name Administration Dates Next Due Pneumococcal Conjugate Vacc, 13 Valent (Prevnar) 06/26/2016 Pneumococcal Polysaccharide PPV23 (Pneumovax) TB Rosemarie Test 02/28/2022,02/19/2022 TD - Tetanus/Diptheria (ADULT) 12/01/2014 TD, Preservative Free 12/01/2014 TDAP (age 10 and older)(Boostrix) 12/01/2014 documented as of this encounter Social History Tobacco Use Types Packs/Day Years Used Date Smoking Tobacco: Never Smokeless Tobacco: Never Alcohol Use Standard Drinks/Week Comments Yes 0 (1 standard drink = 0.6 oz pur e alcohol) occassionally PHQ-2 Answer Date Recorded PHQ Adult Total Score 3 05/22/2023 Hunger Vital Sign Answer Date Recorded Within the past 12 months, y ou worried that your food would run out before you got the money to buy more. Never true 11/08/19 23 Within the past 12 months, t he food you bought just didn't last and you didn't have money to get more. Never true 11/07/2022 Sex and Gender Information Value Date Recorded Sex Assigned at Male 06/16/2019 12:52 PM EST Legal Sex Male 7:02 AM EST Gender Identity Male 06/16/2019 12:52 PM EST Sexual Orientation Straight 06/16/2019 12 :52 PM EST Occupation Industry Job Start Date Job End Date Retired Not on file Not on file Not on file documented as of this encounter Functional Status * Are you deaf or do you have serious difficulty hearing? Answer Date of Assessment Author No 12/24/2022 6:50 PM EDT Enid Fox RN * Are you blind or do you have serious difficulty seeing, even when wearing glasses? Answer Date of Assessment Author No 12/24/2022 6:50 PM EDT Enid Fox RN * Do you have serious difficulty walking or climbing stairs? (5 years old or older) Answer Date of Assessment Author No 12/24/2022 6:50 PM EDT Enid Fox RN * Do you have difficulty dressing or bathing? (5 years old or older) Answer Date of Assessment Author No 12/24/2022 6:50 PM EDT Enid Fox RN * Because of a physical, mental, or emotional condition, do you have difficulty doing errands alone such as visiting a doctors office or shopping? (15 years old or older) Answer Date of Assessment Author No 12/24/2022 6:50 PM EDT Enid Fox RN documented as of this encounter Mental Status * Because of a physical, mental, or emotional condition, do you have serious difficulty concentrating, remembering, or making decisions? (5 years old or older) Answer Entry Date Author No 12/24/2022 6:50 PM EDT Enid Fox RN documented in this encounter Progress Notes * Juanis Bay, [facility] - 08/06/2024 10:39 AM EST MEDICATION THERAPY MANAGEMENT CHLORAMBUCIL (LEUKERAN) TREATMENT PROGRESS NOTE Luis M Tirado [phone] Patient Phone Numbers yeppt [phone] SPEAK LOUD HARD OF HEARING AND DIFFICULTY WITH TOUCH SCREEN PHONE Communication: Spoke to: Patient Current Treatment: Medication: Chlorambucil (Leukeran) Indication: CLL Dose: 2 mg daily Administration: by mouth without regards to food Start Date: 11/16/19; 11/30/23 Primary Electronic Pagination System Operator: Dr. Jamil Prophylactic Meds: Allopurinol 200 mg by mouth daily Interval History: Leukeran held 01/18/20 - 08/10/20 and 10/2021-11/29/23 due to declining WBC and side effects Per TE 11/14/23, WBC increasing and pt advised to resume chlorambucil Per MOHS OV 01/05/24, advised to continue triamcinolone cream to skin BID and continue vinegar soaks Per OV 06/02/24, continue q2wk lab monitoring Reports chronic sinus issues but denies fever (temp > 100.4) or s/s of infection States spot removed by dermatology in 05/2024 slow healing and inquiring if he can start vitamin E No other concerns Changes to medication list since last visit? Yes, vitamin E- no DDI Assessment and Plan: WBC/ALC elevated but stable ANC declining to grade 1 neutropenia Will monitor closely All other labs stable Advised pt it is safe to take vitamin E for wound healing Educated pt he has chronically low PLT; therefore, would anticipate slower healing Advised to follow up with dermatology if wound continues to not heal or appears infected Pt replied with understanding Continue chlorambucil with labs every 2 weeks Mailed lab results as per patient request Assessment of compliance: compliant Dose adjustment needed based on lab or adverse drug reaction? No Follow up: 2 weeks Juanis Bay, PharmD, BCOP Clinical Pharmacist, [facility] Oral Chemotherapy [facility] 08/06/2024, 11:33 AM Pertinent labs: Latest Reference Range & Units 07/07/24 13:35 07/22/24 09:39 08/05/24 12:57 WBC 4.00 - 10.80 K/uL 25.44 (H) 17.03 (H) 21.10 (H) RBC 4.50 - 5.25 M/uL 3.74 3.56 3.69 HGB 14.0 - 16.8 g/dL 11.9 (L) 11.2 (L) 11.7 (L) HCT 40.0 - 48.4 % 37.1 (L) 35.4 (L) 36.6 (L) MCV 82.0 - 99.5 fL 99.2 99.4 99.2 MCH 27.0 - 34.0 pg 31.8 31.5 31.7 MCHC 32.0 - 36.0 g/dL 32.1 31.6 32.0 RDW 11.5 - 15.5 % 14.1 14.1 14.1 PLT 140 - 400 K/uL 98 (L) 92 (L) 96 (L) MPV 6.6 - 11.1 fL 9.7 9.2 9.0 CBC WITH WBC DIFFERENTIAL Rpt ! Rpt ! Rpt ! Absolute Neutrophils 1.80 - 7.70 K/uL 4.07 2.94 1.64 (L) Absolute Lymphocytes 1.00 - 4.80 K/uL 20.86 (H) 13.23 (H) 18.29 (H) Serum creatinine: 1.2 mg/dL 08/05/24 1257 Estimated creatinine clearance: 42.6 mL/min Latest Reference Range & Units 07/07/24 13:35 07/22/24 09:39 08/05/24 12:57 Albumin 3.8 - 5.0 g/dL 4.7 4.3 4.4 AST 10 - 50 U/L 20 19 21 ALT 10 - 50 U/L 11 5 (L) <5 (L) Alkaline Phosphatase 35 - 130 U/L 79 69 73 Bilirubin, Total <=1.2 mg/dL 0.6 0.5 0.5 Time Spent on Encounter: 11 - 15 minutes Encounter Group: Hematology Encounter Interventions Item Category: Oral Chemotherapy Chlorambucil Problem/Rationale: Safety: Needs additional monitoring - Medication Requires monitoring Pharmacist Intervention(s): Care coordination, Drug Interaction Screen, Lab monitoring, and Toxicity monitoring Magnitude of Intervention: Monitoring with direction (Level 1) documented in this encounter Plan of Treatment Upcoming Encounters Date Type Department Care Team (Late st Contact Info) Description 08/20/2024 9:00 AM EST Pharmacy Pharmacy Hematology Oncology [address] [address] [facility] [place] [facility] Hem/[place] [facility] [place] [address] 09/06/2024 2:30 PM EST Office Visit Hematology/Oncology [facility] [address] [facility] [place] [phone] Lucien Jamil MD [address] [facility] [place] [address] 10/04/2024 9:00 AM EST Office Visit Allergy/Immunology [facility] [place] [address] [facility] [place] [address] Ric Cherry MD [address] [facility] [place] [address] 11/22/2024 11:00 AM EDT Office Visit Cardiology, [facility] [address] [facility] [place] [address] Cuauhtemoc Jo DO [address] [place] [address] 11/30/2024 12:00 PM EDT Office Visit Pulmonary Medicine, [facility] [address] [place] [address] Phillip Hernandez MD [address] [place] [address] Health Maintenance Due Date Last Done Comments COVID-19 Vaccine (#1) 02/07/1945 Zoster Vaccines (1 of 2) 02/07/1959 Adult Wellness Visit 02/07/2006 CKD PHOS USE SMARTSET 49709 11/29/202311/03, 11/07/2022, 10/16/2021, Additional history exists Influenza Vaccine (FLU shot) (#1) 2024 Albumin/Creatinine Ratio 05/22/2024 023, 05/09/2022, 09/17/1999 Depression Screening 05/22/2024 05/22/2023 DTap/Tdap Vaccines (4 - Td or Tdap) 12/01/2024 12/01/2014, 12/01/2014, 12/01/2014 GFR 02/02/2025 08/05/2024, 07/04, 07/07/2024, Additional history exists O2 ASSESSMENT COMPLETED IN PAST YEAR FOR COPD 06/11/2025 06/11/2024 CKD HGB USE SMARTSET 62309 08/05/202508/05, 08/05/2024, 07/22/2024, Additional history exists Pneumococcal Vaccine: 50+ Years Completed 07/01/2017, 06/26/2016, 10/11/2004 Alpha-1 Antitrypsin Completed 11/07/2022 HPV (Gardasil) Vaccine Aged Out No lo nger eligible based on patient's age to complete this topic Hepatitis B Vaccine Aged Out No longe r eligible based on patient's age to complete this topic MENINGOCOCCAL (MENACTRA/MENVEO) Aged Out No longer eligible based on patient's age to complete this topic documented as of this encounter Medical Devices Implanted Type Area Design Specialist Device Identifier Shelf Expiration Date Model / Serial / Lot Valve Korey 3 Ultra 26mm - [id number] Implanted:Qty: 1 on 12/24/2022 by Jesse Tanner MD at [facility] [employer] [id number] 07/03/2023 [id number] / / Lead Pace Select[employer] 3830-69 - [id number] Implanted:Qty: 1 on 12/26/2022 by Keily Kelley IV, MD at [facility] [employer] : CRM [id number] 11/19/2024 [id number] / [id number] / [id number] Lead Novus Bipolar 52cm - [id number] Implanted:Qty: 1 on 12/26/2022 by Keily Kelley IV, MD at [facility] [employer] : CRM [id number] 10/10/2024 [id number] / [id number] / [id number] Pacemaker Parul Xt Dr Mri [facility] - [id number] Implanted:Qty: 1 on 12/26/2022 by Keily Kelley IV, MD at [facility] [employer] [id number] 05/17/2024 [id number] / [id number] / [id number] documented as of this encounter Visit Diagnoses Diagnosis CLL (chronic lymphocytic leukemia) (HCC)- Primary Chronic lymphoid leukemia, without mention of having achieved remission documented in this encounter Advance Directives * Full Code (Latest Code Status on File) Date Activated Date Inactivated Comments 12/24/2022 11:13 AM 12/27/2022 10:05 PM This order reflects the patients wishes and were consensually agreed upon. Question Answer Comments Discussion of Advance Directives occurred with: Patient Care Teams Senior Net Architect Relationship Specialty Start Date End Date Vincent Slaughter MD [address] [facility] [address] [facility] [place] [address] PCP - General Internal Medicine 05/22/21 documented as of this encounter
--- OUTSIDE RECORDS SUMMARY | 2024-08-26 09:37 | External Medical Summary ---
Author Name Unknown Address Unknown Organization [id number]:[facility] [address] [place] [address] Laboratory Report Ordering Provider Test Date Status KAMI CHAPMAN 08/05/2024 12:57:02 Final Observation Date Value Abnormality Reference (Units ) Status BUN 08/05/2024 12:57:02 14 6-20 (mg/dL) Final Creatinine 08/05/2024 12:57:02 1.2 0.6-1.2 (mg/dL) Final Glomerular filtration rate/1.73 sq M.predicted [Volume Rate/Area] in Serum, Plasma or Blood by Creatinine-based formula (CKD-EPI) 08/05/2024 12:57:02 58 Below low normal >=60 (mL/min) Final eGFR is calculated based on the CKD-EPI 2020 equation. Sodium 08/05/2024 12:57:02 144 135-146 (m mol/L) Final Potassium 08/05/2024 12:57:02 3.8 3.5-5.1 (m mol/L) Final Cl 08/05/2024 12:57:02 107 98-107 (mm ol/L) Final CO2 08/05/2024 12:57:02 26 22-32 (mmo l/L) Final Anion gap 08/05/2024 12:57:02 11 7-15 (mmol /L) Final Glucose 08/05/2024 12:57:02 98 70-120 (mg /dL) Final Albumin 08/05/2024 12:57:02 4.4 3.8-5.0 (g /dL) Final AST (Aspartate aminotransferase) 08/05/2024 12:57:02 21 10-50 (U/L) Fin al Alk Phos 08/05/2024 12:57:02 73 35-130 (U/ L) Final Bilirubin, Total 08/05/2024 12:57:02 0.5 <=1 .2 (mg/dL) Final Calcium 08/05/2024 12:57:02 9.2 8.4-10.2 ( mg/dL) Final Protein 08/05/2024 12:57:02 6.5 6.0-8.3 (g /dL) Final ALT (Alanine aminotransferase) 08/05/2024 12:57:02 <5 Below low normal 10-50 (U/L) Final Performing Location [facility] [address] [place] [address]
--- OUTSIDE RECORDS SUMMARY | 2024-08-26 09:37 | External Medical Summary ---
Author Name Unknown Address Unknown Organization K09:[facility] [place] [address] Laboratory Report Ordering Provider Test Date Status KAMI CHAPMAN 08/05/2024 12:57:02 Final 2 times a week for 3-6 weeks , then every 1-2 weeks. Observation Date Value Abnormality Reference (Units ) Status WBC, Total 08/05/2024 12:57:02 21.10 Above high normal 4 .00-10.80 (K/uL) Final RBC 08/05/2024 12:57:02 3.69 4.50-5.25 (M/uL) Final Hemoglobin 08/05/2024 12:57:02 11.7 Below low normal 14 .0-16.8 (g/dL) Final HCT 08/05/2024 12:57:02 36.6 Below low normal 40. 0-48.4 (%) Final MCV 08/05/2024 12:57:02 99.2 82.0-99.5 (fL) Final MCH 08/05/2024 12:57:02 31.7 27.0-34.0 (pg) Final MCHC 08/05/2024 12:57:02 32.0 32.0-36.0 (g/dL) Final RDW 08/05/2024 12:57:02 14.1 11.5-15.5 (%) Final Platelets 08/05/2024 12:57:02 96 Below low normal 140 -400 (K/uL) Final Consistent with previous res ults. MPV 08/05/2024 12:57:02 9.0 6.6-11.1 ( fL) Final Performing Location [facility] [place] [address]
--- OUTSIDE RECORDS SUMMARY | 2024-08-26 09:37 | External Medical Summary | Summary of Care ---
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 30 mL 12 3 Active [...] as of this encounter (statuses as of 08/23/2024) Active Problems Problem Noted Date Diagnosed Date [...] hemisphere infarct. Mri 01/14/2007 Mri done at [facility] Statin intolerance 07/27/2007 Overview (07/27/2007): Hepatitis with Zocor Other sleep apnea 06/01/2001 documented as of this encounter (statuses as of 08/23/2024) Resolved Problems Problem Noted Date Diagnosed Date [...] hemisphere infarct. Mri 01/14/2007 Mri done at [facility] Cerebrovascular event, ill-d efined, within last 8 weeks 02/23/2007 11/17/2008 Overview (11/17/2008): Modified per CVA protocol #8 Chronic rhinitis 09/16/2005 12/31/2017 Deviated nasal septum 03/27/20052017 Acquired deformity of nose 03/27/2005 1 08/31/2016 NASAL & SINUS DIS NEC 03/27/20052016 Other chronic sinusitis 03/27/200508/2018 CHRONIC LYMPHOID LEUKEMIA WI [facility] MENTION OF REMISSION 02/25/2005 04/14/2018 ADVANCE [...] as of this encounter (statuses as of 08/23/2024) Immunizations Name Administration Dates Next Due Pneumococcal [...] of Assessment Author No 12/24/2022 6:50 PM Enid Jo RN * Are you blind or do you have serious difficulty seeing, even when wearing glasses? Answer Date of Assessment Author No 12/24/2022 6:50 PM Enid Jo RN * Do you have serious difficulty walking or climbing stairs? (5 years old or older) Answer Date of Assessment Author No 12/24/2022 6:50 PM Enid Jo RN * Do you have difficulty dressing [...] Enid Fox RN documented in this encounter Miscellaneous Notes * Telephone Encounter - Kathleen Gambino OSA - 08/23/2024 1:19 PM EST Pt stopped into the office He wanted to dr Made him aware that dr was not in office He said he has been on "lucuran" " My body has been overloaded with the medication, I have 2 new lessons on my head that have hurt very badly and wanted to make someone aware that I am taking myself off of my medication and then want to do the labs in about a month" He stated that he didn't notice any difference when it was high or low. He wanted to make someone aware of him changing this FYI nursing documented in this encounter Plan of Treatment Upcoming Encounters Date Type Department Care Team (Late st Contact Info) Description 08/23/2024 2:15 PM EST Office Visit [facility] Surgery [facility] [address] [facility] [address] [place] [address] Candace Aguilar MD 200 [place] [address] Arrived 08/24/2024 9:00 AM EST Pharmacy Pharmacy Hematology Oncology [address] [address] [facility], [facility] Hem/Onc [address] [place] [address] 09/06/2024 2:30 PM EST Office Visit Hematology/Oncology [facility] [address] [place] [phone] Lucien Jamil MD [address] [place], [place] [address] 10/04/2024 9:00 AM EST Office Visit Allergy/Immunology [facility] [address] [place], [place] [address] Ric Cherry MD [address] [place], [place] [address] 11/22/2024 11:00 AM EDT Office Visit Cardiology, [facility] [address] [address] Cuauhtemoc Jo DO 132 [place] [address] 11/30/2024 12:00 PM EDT Office Visit Pulmonary Medicine, [facility] [address] [facility] [place] [address] Phillip Hernandez MD [address] [facility] [place] [id number] Health Maintenance Due Date Last Done Comments COVID-19 Vaccine (#1) 02/07/1945 Zoster Vaccines (1 of 2) 02[birth year]07/1959 Adult Wellness Visit 02/07/2006 CKD PHOS USE SMARTSET 34432 11/29/202311/03, 11/07/2022, 10/16/2021, Additional history exists Influenza Vaccine (FLU shot) (#1) 2024 Albumin/Creatinine Ratio 05/22/2024 023, 05/09/2022, 09/17/1999 Depression Screening 05/22/2024 05/22/2023 DTap/Tdap Vaccines (4 - Td or Tdap) 12/01/2024 12/01/2014, 12/01/2014, 12/01/2014 GFR 02/02/2025 08/05/2024, 07/04, 07/07/2024, Additional history exists O2 ASSESSMENT COMPLETED IN PAST YEAR FOR COPD 06/11/2025 06/11/2024 CKD HGB USE SMARTSET 02043 08/05/202508/05, 08/05/2024, 07/22/2024, Additional history exists Pneumococcal [...] this encounter Medical Devices Implanted Type Area Senior Sql Server Dba Device Identifier Shelf Expiration Date Model / Serial / Lot Valve Korey 3 Ultra 26mm - [id number] Implanted:Qty: 1 on 12/24/2022 by Jesse Tanner MD at [facility] [employer] [id number] 07/03/2023 [id number] / / Lead Pace Selectsecure 3830-69 - [id number] Implanted:Qty: 1 on 12/26/2022 by Keily Kelley IV, MD at [facility] [employer] : ALYSON [id number] 11/19/2024 [id number] / [id number] / [id number] Lead Novus Bipolar 52cm - [id number] Implanted:Qty: 1 on 12/26/2022 by Keily Kelley IV, MD at [facility] [employer] : ALYSON [id number] 10/10/2024 5076- 52 / [id number] / [id number] Pacemaker Parul Xt Dr Orosco [facility] - [id number] Implanted:Qty: 1 on 12/26/2022 by Keily Kelley IV, MD at [facility] [employer] [id number] 05/17/2024 [id number] / [id number] / [id number] documented as of this encounter Advance Directives * Full Code (Latest Code Status on File) Date Activated Date Inactivated Comments 12/24/2022 11:13 AM 12/27/2022 10:05 PM This order reflects the patients wishes and were consensually agreed upon. Question Answer Comments Discussion of Advance Directives occurred with: Patient Care Teams Rn Geriatric Relationship Specialty Start Date End Date Nazario Whaley DO [address] [place] [address] PCP - General Internal Medicine 08/10/24 documented as of this encounter
--- OUTSIDE RECORDS SUMMARY | 2024-08-26 09:37 | External Medical Summary | Summary of Care ---
Author Name Unknown Organization [facility] Address [address] [place] [address] Phone [phone] Care Team Providers Care Neurosurgery Research Director Name Role Phone Nazario Whaley Primary Care Provid er Reason for Visit * Reason Comments Medication Management Encounter Details Date Type Department Care Team (Late st Contact Info) Description 08/20/2024 9:[address] 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 30 mL 12 3 Active [...] inhalation solution 2.5 mgIndications:ILD (interstitial lung disease) ([facility]),Hypersensitivity pneumonitis (HCC),COPD, group B, by GOLD 2017 classification (HCC),Dyspnea on exertion,Chronic cough 2.5 mg NEBULIZER ONCE PRN 01/07/2024 01/06/2025 Ac tive documented as of this encounter (statuses as of 08/20/2024) Active Problems Problem Noted Date Diagnosed Date [...] hemisphere infarct. Mri 01/14/2007 Mri done at [facility] [place] Statin intolerance 07/27/2007 Overview (07/27/2007): Hepatitis with Zocor Other sleep apnea 06/01/2001 documented as of this encounter (statuses as of 08/20/2024) Resolved Problems Problem Noted Date Diagnosed Date [...] hemisphere infarct. Mri 01/14/2007 Mri done at [facility] [place] Cerebrovascular event, ill-d efined, within last 8 weeks 02/23/2007 11/17/2008 Overview (11/17/2008): Modified per CVA protocol #8 Chronic rhinitis 09/16/2005 12/31/2017 Deviated nasal septum 03/27/20052017 Acquired deformity of nose 03/27/2005 1 08/31/2016 NASAL & SINUS DIS NEC 03/27/20052016 Other chronic sinusitis 03/27/200508/2018 CHRONIC LYMPHOID LEUKEMIA WI [facility] MENTION OF REMISSION 02/25/2005 04/14/2018 ADVANCE DIRECTIVE [...] as of this encounter (statuses as of 08/20/2024) Immunizations Name Administration Dates Next Due Pneumococcal [...] of Assessment Author No 12/24/2022 6:50 PM NIHARIKAT Enid Fox RN * Are you blind [...] documented in this encounter Progress Notes * Leanna Strange OSA - 08/20/2024 9:00 AM EST MEDICATION THERAPY MANAGEMENT CHLORAMBUCIL (LEUKERAN) TREATMENT PROGRESS NOTE Luis M Tirado [phone] Patient Phone Numbers SPEAK LOUD HARD OF HEARING AND DIFFICULTY WITH TOUCH SCREEN PHONE Communication: Spoke to: Patient Current Treatment: Medication: Chlorambucil (Leukeran) Indication: CLL Dose: 2 mg daily Administration: by mouth without regards to food Start Date: 11/16/19; 11/30/23 Primary Flux Core Welder: Dr. Omero Asencio is planning to go for labs on Friday. Patient also informing that he is being seen at [facility] at that same day as he is worried the lesions on his head are from his Leukeran. If this is the case he says that Dr Jamil will need to stop his Leukeran. Patient has about 10 pills left and doesn'twant to order more if his med will be stopped Made [facility] aware. [place] [facility] Hematology Oncology Oral Chemotherapy Clinic Medication Therapy Disease Management [facility] 08/20/24 11:01 AM Time Spent on Encounter: < 5 minutes Encounter Group: Hematology Encounter Interventions Item Category: Oral Chemotherapy Chlorambucil Problem/Rationale: Safety: Needs additional monitoring - Medication Requires monitoring Pharmacist Intervention(s): Lab work requested Magnitude of Intervention: Monitoring with no interventions (Level 0) documented in this encounter Plan of Treatment Upcoming Encounters Date Type Department Care Team (Late st Contact Info) Description 08/23/2024 2:15 PM EST Office Visit [facility] [address] [place] [address] Candace Aguilar MD [address] [facility] [place] [address] 08/24/2024 9:00 AM EST Pharmacy Pharmacy Hematology Oncology [facility] [address] [place] [address] Gm, [facility] Hem/Onc [facility] [place] [address] 09/06/2024 2:30 PM EST Office Visit Hematology/Oncology [facility] [address] [place] [address] Lucien Jamil MD [address] [facility] [place] [address] 10/04/2024 9:00 AM EST Office Visit Allergy/Immunology [facility] [address] [facility] [place] [address] Ric Cherry MD [address] [facility] [place] [address] 11/22/2024 11:00 AM EDT Office Visit Cardiology, [facility] [address] [facility] [place] [address] Cuauhtemoc Jo DO 132 [facility] [place] [address] 11/30/2024 12:00 PM EDT Office Visit Pulmonary Medicine, [facility] [address] [facility] [place] [phone] Phillip Hernandez MD [address] [place] [address] Health Maintenance Due Date Last Done Comments COVID-19 Vaccine (#1) 02/07/1945 Zoster Vaccines (1 of 2) 02/07/1959 Adult Wellness Visit 02/07/2006 CKD PHOS USE SMARTSET 17449 11/29/2023 0402/2023, 11/07/2022, 10/16/2021, Additional history exists Influenza Vaccine (FLU shot) (#1) 2024 Albumin/Creatinine Ratio 05/22/2024 023, 05/09/2022, 09/17/1999 Depression Screening 05/22/2024 05/22/2023 DTap/Tdap Vaccines (4 - Td or Tdap) 12/01/2024 12/01/2014, 12/01/2014, 12/01/2014 GFR 02/02/2025 08/05/2024, 07/04, 07/07/2024, Additional history exists O2 ASSESSMENT COMPLETED IN PAST YEAR FOR COPD 06/11/2025 06/11/2024 CKD HGB USE SMARTSET 95099 08/05/202508/05, 08/05/2024, 07/22/2024, Additional history exists Pneumococcal [...] this encounter Medical Devices Implanted Type Area Broker Associate Device Identifier Shelf Expiration Date Model / Serial / Lot Valve Korey 3 Ultra 26mm - [id number] Implanted:Qty: 1 on 12/24/2022 by Jesse Tanner MD at [facility] [employer] [id number] 07/03/2023 [id number] / / Lead Pace Selectsecure 3830-69 - [id number] Implanted:Qty: 1 on 12/26/2022 by Keily Kelley IV, MD at [facility] [employer] : CRM [id number] 11/19/2024 [id number] 9 / [id number] / [id number] Lead Novus Bipolar 52cm - [id number] Implanted:Qty: 1 on 12/26/2022 by Keily Kelley IV, MD at [facility] [employer] : CRM [id number] 10/10/2024 5076- 52 / [id number] / [id number] Pacemaker Grady Xt Dr Kwesi Wr - [id number] Implanted:Qty: 1 on 12/26/2022 by Keily Kelley IV, MD at [facility] [employer] [id number] 05/17/2024 W1DR01 / [id number] / [id number] documented as of this encounter Visit Diagnoses [...] Advance Directives occurred with: Patient Care Teams Neurosurgery Research Director Relationship Specialty Start Date End Date Nazario Whaley DO [address] [place] [address] PCP - General Internal Medicine 08/10/24 documented as of this encounter
--- OUTSIDE RECORDS SUMMARY | 2024-08-26 09:37 | External Medical Summary | Summary of Care ---
Author Name Unknown Organization [facility] Address [address] [place] [address] Phone [phone] Care Team Providers Care Plastic Mould Maker Name Role Phone Nazario Whaley Primary Care Provid er Encounter Details Date Type Department Care Team (Late st Contact Info) Description 08/23/2024 Telephone Hematology/Oncology [facility] [place] [address] [place] [address] Lucien Jamil MD [address] [place] [address] Allergies Active Allergy Reactions Criticality Noted Date [...] 0.1 % Nasal Solution (Astelin) Administer 1 [place] into nostril in the morning and 1 [place] before bedtime. 30 mL 12 3 Active [...] hemisphere infarct. Mri 01/14/2007 Mri done at [facility] Statin intolerance 07/27/2007 Overview (07/27/2007): Hepatitis with [...] hemisphere infarct. Mri 01/14/2007 Mri done at [facility] Cerebrovascular event, ill-d efined, within last 8 weeks 02/23/2007 11/17/2008 Overview (11/17/2008): Modified per CVA protocol #8 Chronic rhinitis 09/16/2005 12/31/2017 Deviated nasal septum 03/27/20052017 Acquired deformity of nose 03/27/2005 1 08/31/2016 NASAL & SINUS DIS NEC 03/27/20052016 Other chronic sinusitis 03/27/200508/2018 CHRONIC LYMPHOID LEUKEMIA WI [facility] MENTION OF REMISSION 02/25/2005 04/14/2018 ADVANCE [...] Valent (Prevnar) 06/26/2016 Pneumococcal Polysaccharide PPV23 (Pneumovax) ,10/11/2004 TB Rosemarie Test 02/28/2022,02/19/2022 TD - Tetanus/Diptheria [...] encounter Miscellaneous Notes * Telephone Encounter - Kathia Maria RN - 08/23/2024 1:41 PM EST Patient has not had labs since 08/05/24. Called patient- advised him to get lab work prior to seeing Dr Jamil 09/06/24. He verbalized understanding. Dr Jamil/ MTM: FYI- patient stopping leukeran for now * Telephone Encounter - Kathleen Gambino OSA [...] Description 08/23/2024 2:15 PM EST Office Visit [facility] Surgery [facility] [address] [place] [address] Candace Aguilar MD [address] [place] [address] Arrived 08/24/2024 9:00 AM EST Pharmacy Pharmacy Hematology Oncology [facility] [address] [place] [address] [facility] [address] [place] [address] 09/06/2024 2:30 PM EST Office Visit Hematology/Oncology [facility] [address] [place] [address] Lucien Jamil MD [address] [place] [address] 10/04/2024 9:00 AM EST Office Visit Allergy/Immunology [facility] [address] [place] [address] Ric Cherry MD [address] [place] [address] 11/22/2024 11:00 AM EDT Office Visit Cardiology, [facility] [address] [facility] [place] [address] Cuauhtemoc Jo, [address] [place] [address] 11/30/2024 12:00 PM EDT Office Visit Pulmonary Medicine, [facility] [address] [place] [place] [id number] Phillip Hernandez MD [address] [place] [address] Health Maintenance Due Date Last Done Comments COVID-19 Vaccine (#1) 02/07/1945 Zoster Vaccines (1 of 2) 02/07/1959 Adult Wellness Visit 02/07/2006 CKD PHOS USE SMARTSET 64604 11/29/202311/03, 11/07/2022, 10/16/2021, Additional history exists Influenza Vaccine (FLU shot) (#1) 2024 Albumin/Creatinine Ratio 05/22/2024 023, 05/09/2022, 09/17/1999 Depression Screening 05/22/2024 05/22/2023 DTap/Tdap Vaccines (4 - Td or Tdap) 12/01/2024 12/01/2014, 12/01/2014, 12/01/2014 GFR 02/02/2025 08/05/2024, 07/04, 07/07/2024, Additional history exists O2 ASSESSMENT COMPLETED IN PAST YEAR FOR COPD 06/11/2025 06/11/2024 CKD HGB USE SMARTSET 75346 08/05/202508/05, 08/05/2024, 07/22/2024, Additional history exists Pneumococcal [...] this encounter Medical Devices Implanted Type Area Electric Solderer Device Identifier Shelf Expiration Date Model / Serial / Lot Valve Korey 3 Ultra 26mm - [id number] Implanted:Qty: 1 on 12/24/2022 by Jesse Tanner MD at [facility] [employer] [id number] 07/03/2023 [id number] / / Lead Pace Selectsecure 3830-69 - [id number] Implanted:Qty: 1 on 12/26/2022 by Keily Kelley IV, MD at [facility] [employer] : CRM [id number] 11/19/2024 [id number] / [id number] / [id number] Lead Novus Bipolar 52cm - [id number] Implanted:Qty: 1 on 12/26/2022 by Keily Kelley IV, MD at [facility] [employer] : CRM [id number] 10/10/2024 5076- 52 / [id number] / [id number] Pacemaker Parul Xt Dr Kwesi Wr - [id number] Implanted:Qty: 1 on 12/26/2022 by Keily Kelley IV, MD at [facility] [employer] [id number] 05/17/2024 W1DR01 / [id number] / [id number] documented as of this encounter Advance Directives * Full Code (Latest Code Status on File) Date Activated Date Inactivated Comments 12/24/2022 11:13 AM 12/27/2022 10:05 PM This order reflects the patients wishes and were consensually agreed upon. Question Answer Comments Discussion of Advance Directives occurred with: Patient Care Teams Plastic Mould Maker Relationship Specialty Start Date End Date Nazario Whaley DO [address] [place] [address] PCP - General Internal Medicine 08/10/24 documented as of this encounter
--- OUTSIDE RECORDS SUMMARY | 2024-08-26 09:37 | External Medical Summary | Summary of Care ---
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 30 mL 12 3 Active [...] on an empty stomach.. 30 Tablet 5 06/29/2024 1:18 PM EST 4 Active Allopurinol 100 MG [...] (HCC),COPD, group B, by GOLD 2017 classification ([facility]),Dyspnea on exertion,Chronic cough 2.5 mg NEBULIZER ONCE PRN 01/07/2024 01/06/2025 Ac tive documented as of this encounter (statuses as of 07/29/2024) Active Problems Problem Noted Date Diagnosed Date [...] hemisphere infarct. Mri 01/14/2007 Mri done at [facility] Statin intolerance 07/27/2007 Overview (07/27/2007): Hepatitis with Zocor Other sleep apnea 06/01/2001 documented as of this encounter (statuses as of 07/29/2024) Resolved Problems Problem Noted Date Diagnosed Date [...] hemisphere infarct. Mri 01/14/2007 Mri done at [facility] Cerebrovascular event, ill-d efined, within last 8 weeks 02/23/2007 11/17/2008 Overview (11/17/2008): Modified per CVA protocol #8 Chronic rhinitis 09/16/2005 12/31/2017 Deviated nasal septum 03/27/20052017 Acquired deformity of nose 03/27/200508/31/2016 NASAL & SINUS DIS NEC 03/27/20052016 Other chronic sinusitis 03/27/200508/2018 CHRONIC LYMPHOID LEUKEMIA WI [facility] MENTION OF REMISSION 02/25/2005 04/14/2018 ADVANCE [...] as of this encounter (statuses as of 07/29/2024) Immunizations Name Administration Dates Next Due Pneumococcal [...] Author No 12/24/2022 6:50 PM NIHARIKAT Enid Fxo RN * Do you have difficulty dressing or bathing? (5 years old or older) Answer Date of Assessment Author No 12/24/2022 6:50 PM Enid Jo RN * Because of a physical, mental, [...] Enid Fox RN documented in this encounter Plan of Treatment Upcoming Encounters Date Type Department Care Team (Late st Contact Info) Description 08/05/2024 9:00 AM EST Pharmacy Pharmacy Hematology Oncology [facility] [address] [place] [address] [facility] Hem/Onc [address] [place] [address] 09/06/2024 2:30 PM EST Office Visit Hematology/Oncology [facility] [address] [place] [phone] Lucien Jamil MD [address] [place] [address] 10/04/2024 9:00 AM EST Office Visit Allergy/Immunology [facility] [address] [place] [address] Ric Cherry MD [address] [place] [address] 11/22/2024 11:00 AM EDT Office Visit Cardiology, [facility] [address] [place] [address] Cuauhtemoc Jo DO [address] [place] [address] 11/30/2024 12:00 PM EDT Office Visit Pulmonary Medicine, [facility] [address] [place] [address] Phillip Hernandez MD [address] [place] [address] Health Maintenance Due Date Last Done Comments COVID-19 Vaccine (#1) 02/07/1945 Zoster Vaccines (1 of 2) 02/07/1959 Adult Wellness Visit 02/07/2006 CKD PHOS USE SMARTSET 18238 11/29/2023/02/2023, 11/07/2022, 10/16/2021, Additional history exists Influenza Vaccine (FLU shot) (#1) 2024 Albumin/Creatinine Ratio 05/22/2024 023, 05/09/2022, 09/17/1999 Depression Screening 05/22/2024 05/22/2023 DTap/Tdap Vaccines (4 - Td or Tdap) 12/01/2024 12/01/2014, 12/01/2014, 12/01/2014 GFR 01/20/2025 07/22/2024, 12/0 11/2023, 06/23/2024, Additional history exists O2 ASSESSMENT COMPLETED IN PAST YEAR FOR COPD 06/11/2025 06/11/2024 CKD HGB USE SMARTSET 91345 07/22/202507/22, 07/22/2024, 07/07/2024, Additional history exists Pneumococcal Vaccine: 50+ Years [...] this encounter Medical Devices Implanted Type Area Central Supply Worker Device Identifier Shelf Expiration Date Model / Serial / Lot Valve Korey 3 Ultra 26mm - [id number] Implanted:Qty: 1 on 12/24/2022 by Jesse Tanner MD at [facility] [employer] [id number] 07/03/2023 [id number] / / Lead Pace Selectsecure 3830-69 - [id number] Implanted:Qty: 1 on 12/26/2022 by Keily Kelley IV, MD at [facility] [employer] : CRM [id number] 11/19/2024 [id number] / [id number] / [id number] Lead Novus Bipolar 52cm - [id number] Implanted:Qty: 1 on 12/26/2022 by Keily Kelley IV, MD at [facility] [employer] : CRM [id number] 10/10/2024 5076- 52 / [id number] / [id number] Pacemaker Lampeter Xt Dr Kwesi [facility] - [id number] Implanted:Qty: 1 on 12/26/2022 by Keily Kelley IV, MD at [facility] [employer] [id number] 05/17/2024 [id number] / [id number] / [id number] documented as of this encounter Procedures Procedure Name Priority Date/Time Associated Diagnosis Comments CARDIOLOGY SCANNED RESULT 07/29/2024 documented in this encounter Results * CARDIOLOGY SCANNED RESULT (07/29/2024) 07/29/2024 us Cuauhtemoc Jo DO OTHER Final Result documented in this encounter Advance Directives * Full Code (Latest Code Status on File) Date Activated Date Inactivated Comments 12/24/2022 11:13 AM 12/27/2022 10:05 PM This order reflects the patients wishes and were consensually agreed upon. Question Answer Comments Discussion of Advance Directives occurred with: Patient Care Teams Senior Bookkeeper Relationship Specialty Start Date End Date Vincent Slaughter MD [address] [place] [address] PCP - General Internal Medicine 05/22/21 documented as of this encounter
--- OUTSIDE RECORDS SUMMARY | 2024-08-26 09:37 | External Medical Summary ---
Author Name Unknown Address Unknown Organization K09:[facility] [address] [place] [address] Laboratory Report Ordering Provider Test Date Status KAMI CHAPMAN 08/05/2024 12:57:02 Final 2 times a week for 3-6 weeks , then every 1-2 weeks. Observation Date Value Abnormality Reference (Units ) Status SYNC LEUKOCYTES IN BLOOD BY AUTOMATED COUNT 08/05/2024 12:57:02 21.10 Above high normal 4.00-10.80 (K/uL) Final Neutrophils/100 leukocytes in Blood by Manual count 08/05/2024 12:57:02 7.8 Below low normal 40.0-75.0 (%) Final Lymphocytes/100 leukocytes in Blood by Manual count 08/05/2024 12:57:02 86.7 Above high normal 18.0-42.0 (%) Final Monocytes/100 leukocytes in Blood by Manual count 08/05/2024 12:57:02 3.3 1.0-11.0 (%) Final Eosinophils/100 leukocytes in Blood by Manual count 08/05/2024 12:57:02 2.2 0.0-6.0 (%) Final Neutrophils [#/volume] in Blood by Manual count 08/05/2024 12:57:02 1.64 Below low normal 1.80-7.70 (K/uL) Final Lymphocytes [#/volume] in Blood by Manual count 08/05/2024 12:57:02 18.29 Above high normal 1.00-4.80 (K/uL) Final Monocytes [#/volume] in Blood by Manual count 08/05/2024 12:57:02 0.70 0.00-1.10 (K/uL) Final Eosinophils [#/volume] in Blood by Manual count 08/05/2024 12:57:02 0.47 0.00-0.70 (K/uL) Final Nucleated erythrocytes/100 leukocytes [Ratio] in Blood by Automated count 08/05/2024 12:57:02 Final Variant lymphocytes [Presence] in Blood by Light microscopy 08/05/2024 12:57:02 Present Abnormal None Seen Final Smudge cells [Presence] in Blood by Light microscopy 08/05/2024 12:57:02 Present Abnormal None Seen Final Performing Location [facility] [address] [place] [address]
--- OUTSIDE RECORDS SUMMARY | 2024-08-26 09:37 | External Medical Summary | Summary of Care ---
Author Name Unknown Organization [facility] Address [address] [place] [address] Phone [phone] Care Team Providers Care Green Chain Worker Name Role Phone Vincent Slaughter MD Primary Care Provider + Reason for Visit * Reason Comments Outpatient Testing Encounter Details Date Type Department Care Team (Late st Contact Info) Description 08/05/2024 12:50 PM EST Laboratory [facility] [address] [place] [address] [facility] [address] [place] [address] CLL (chronic lymphocytic leukemia) (HCC) Allergies Active Allergy Reactions Criticality Noted Date Comments Heparin High 01/01/2023 ?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 30 mL 12 3 Active [...] inhalation solution 2.5 mgIndications:ILD (interstitial lung disease) ([facility]),Hypersensitivity pneumonitis (HCC),COPD, group B, by GOLD 2017 classification ([facility]),Dyspnea on exertion,Chronic cough 2.5 mg NEBULIZER ONCE PRN 01/07/2024 01/06/2025 Ac tive documented as of this encounter (statuses as of 08/05/2024) Active Problems Problem Noted Date Diagnosed Date [...] as of this encounter (statuses as of 08/05/2024) Resolved Problems Problem Noted Date Diagnosed Date [...] chronic sinusitis 03/27/200508/2018 CHRONIC LYMPHOID LEUKEMIA WI [facility] MENTION OF REMISSION 02/25/2005 04/14/2018 ADVANCE [...] as of this encounter (statuses as of 08/05/2024) Immunizations Name Administration Dates Next Due Pneumococcal [...] st Contact Info) Description 08/06/2024 9:00 AM EST Pharmacy Pharmacy Hematology Oncology [facility] [address] [place] [address] [facility] Hem/Onc [facility] [place] [address] 09/06/2024 2:30 PM EST Office Visit Hematology/Oncology [facility] [address] [place] [phone] Lucien Jamil MD [address] [facility] [place] [address] 10/04/2024 9:00 AM EST Office Visit Allergy/Immunology [facility] [address] [place] [address] Ric Cherry MD [address] [facility] [place] [address] 11/22/2024 11:00 AM EDT Office Visit Cardiology, [facility] [address] [place] [address] Cuauhtemoc Jo DO [address] [place] [address] 11/30/2024 12:00 PM EDT Office Visit Pulmonary Medicine, [facility] [address] [place] [address] Phillip Hernandez MD [address] [place] [address] Pending Results Name Type Priority Associated Diagnoses Date /Time CBC WITH WBC DIFFERENTIAL Lab STAT CLL (chronic lymphocytic leukemia) ([facility]) 08/05/2024 12:57 PM EST COMPREHENSIVE METABOLIC PANEL Lab STAT CLL (chronic lymphocytic leukemia) ([facility]) 08/05/2024 12:57 PM EST CBC Lab STAT CLL (chronic lymphocytic leukemia) ([facility]) 08/05/2024 12:57 PM EST DIFFERENTIAL, AUTOMATED Lab STAT CLL (chronic lymphocytic leukemia) ([facility]) 08/05/2024 12:57 PM EST DIFFERENTIAL, TECHNOLOGIST REVIEW Lab Routine CLL (chronic lymphocytic leukemia) ([facility]) 08/05/2024 12:57 PM EST Health Maintenance Due Date Last Done Comments COVID-19 Vaccine (#1) 02/07/1945 Zoster Vaccines (1 of 2) 02/07/1959 Adult Wellness Visit 02/07/2006 CKD PHOS USE SMARTSET 97735 11/29/202311/03, 11/07/2022, 10/16/2021, Additional history exists Influenza Vaccine (FLU shot) (#1) 2024 Albumin/Creatinine Ratio 05/22/2024 023, 05/09/2022, 09/17/1999 Depression Screening 05/22/2024 05/22/2023 DTap/Tdap Vaccines (4 - Td or Tdap) 12/01/2024 12/01/2014, 12/01/2014, 12/01/2014 GFR 01/20/2025 07/22/2024, 1211/2023, 06/23/2024, Additional history exists O2 ASSESSMENT COMPLETED IN PAST YEAR FOR COPD 06/11/2025 06/11/2024 CKD HGB USE SMARTSET 48975 07/22/202507/22, 07/22/2024, 07/07/2024, Additional history exists Pneumococcal [...] this encounter Medical Devices Implanted Type Area Vocational Coordinator Device Identifier Shelf Expiration Date Model / Serial / Lot Valve Korey 3 Ultra 26mm - [id number] Implanted:Qty: 1 on 12/24/2022 by Jesse Tanner MD at [facility] [employer] [id number] 07/03/2023 [id number] / / Lead Pace [employer] 3830-69 - [id number] Implanted:Qty: 1 on 12/26/2022 by Keily Kelley IV, MD at [facility] [employer] : CRM [id number] 11/19/2024 [id number] 9 / [id number] / [id number] Lead Novus Bipolar 52cm - [id number] Implanted:Qty: 1 on 12/26/2022 by Keily Kelley IV, MD at [facility] [employer] : CRM [id number] 10/10/2024 5076- 52 / [id number] / [id number] Pacemaker Waucoma Xt Dr Mri [facility] - [id number] Implanted:Qty: 1 on 12/26/2022 by Keily Kelley IV, MD at [facility] [employer] [id number] 05/17/2024 W1DR01 / [id number] / [id number] documented as of this encounter Visit Diagnoses Diagnosis CLL (chronic lymphocytic leukemia) (HCC) Chronic lymphoid leukemia, without mention of having achieved remission documented in this encounter Advance Directives * Full Code (Latest Code Status on File) Date Activated Date Inactivated Comments 12/24/2022 11:13 AM 12/27/2022 10:05 PM This order reflects the patients wishes and were consensually agreed upon. Question Answer Comments Discussion of Advance Directives occurred with: Patient Care Teams Green Chain Worker Relationship Specialty Start Date End Date Vincent Slaughter MD [address] [place] [address] PCP - General Internal Medicine 05/22/21 documented as of this encounter
--- OUTSIDE RECORDS SUMMARY | 2024-08-26 09:37 | External Medical Summary | Summary of Care ---
Author Name Unknown Organization [facility] Address [address] [place] [address] Phone [phone] Care Team Providers Care Garment Patternmaker Name Role Phone Nazario Whaley Primary Care Provid er Encounter Details Date Type Department Care Team (Late st Contact Info) Description 08/23/2024 Telephone Hematology/Oncology [facility] [place] [address] [place] [address] Lucien Jamil MD [address] [place] [address] Allergies Active Allergy Reactions Criticality Noted Date [...] 0.1 % Nasal Solution (Astelin) Administer 1 [place] into nostril in the morning and 1 [place] before bedtime. 30 mL 12 3 Active [...] hemisphere infarct. Mri 01/14/2007 Mri done at [facility] Statin intolerance 07/27/2007 Overview (07/27/2007): Hepatitis [...] hemisphere infarct. 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 8 weeks 02/23/2007 11/17/2008 Overview (11/17/2008): Modified per CVA protocol #8 Chronic rhinitis 09/16/2005 12/31/2017 Deviated nasal septum 03/27/20052017 Acquired deformity of nose 03/27/2005 1 08/31/2016 NASAL & SINUS DIS NEC 03/27/20052016 Other chronic sinusitis 03/27/200508/2018 CHRONIC LYMPHOID LEUKEMIA WI [facility] MENTION OF REMISSION 02/25/2005 04/14/2018 [...] Description 08/23/2024 2:15 PM EST Office Visit [facility] [address] [facility] [place] [address] Candace Aguilar MD [address] [place] [address] Arrived 08/24/2024 9:00 AM EST Pharmacy Pharmacy Hematology Oncology [address] [address] [facility] Hem/Onc [address] [place] [address] 09/06/2024 2:30 PM EST Office [facility] [address] [place] [phone] Lucien Jamil MD [address] [place], [place] [address] 10/04/2024 9:00 AM EST Office Visit Allergy[facility]Immunology [facility] [address] [place], [place] [address] Ric Cherry MD [address] [place], [place] [address] 11/22/2024 11:00 AM EDT Office Visit Cardiology, [facility] [address] [place] [address] Cuauhtemoc Jo DO 132 [place] [address] 11/30/2024 12:00 PM EDT Office Visit Pulmonary Medicine, [facility] [address] [place] [address] Phillip Hernandez MD [address] [facility] [place] [id number] Health Maintenance Due Date Last Done Comments COVID-19 Vaccine (#1) 02/07/1945 Zoster Vaccines (1 of 2) 02/07/1959 Adult Wellness Visit 02/07/2006 CKD PHOS USE SMARTSET 66792 11/29/202311/03, 11/07/2022, 10/16/2021, Additional history exists Influenza Vaccine (FLU shot) (#1) 2024 Albumin/Creatinine Ratio 05/22/2024 023, 05/09/2022, 09/17/1999 Depression Screening 05/22/2024 05/22/2023 DTap/Tdap Vaccines (4 - Td or Tdap) 12/01/2024 12/01/2014, 12/01/2014, 12/01/2014 GFR 02/02/2025 08/05/2024, 07/04, 07/07/2024, Additional history exists O2 ASSESSMENT COMPLETED IN PAST YEAR FOR COPD 06/11/2025 06/11/2024 CKD HGB USE SMARTSET 48233 08/05/202508/05, 08/05/2024, 07/22/2024, Additional history exists Pneumococcal [...] this encounter Medical Devices Implanted Type Area University Administrator Device Identifier Shelf Expiration Date Model / Serial / Lot Valve Korey 3 Ultra 26mm - [id number] Implanted:Qty: 1 on 12/24/2022 by Jesse Tanner MD [place] [facility] [employer] [id number] 07/03/2023 [id number] / / Lead Pace [employer] 3830-69 - [id number] Implanted:Qty: 1 on 12/26/2022 by Keily Kelley IV, MD at [facility] [employer] : [place] [id number] 11/19/2024 [id number] 9 / [id number] / [id number] Lead Novus Bipolar 52cm - [id number] Implanted:Qty: 1 on 12/26/2022 by Keily Kelley IV, MD at [facility] [employer] : [employer] [id number] 10/10/2024 5076- 52 / [id number] / [id number] Pacemaker Parul Xt [facility] - [id number] Implanted:Qty: 1 on 12/26/2022 by Keily Kelley IV, MD at [facility] [employer] [id number] 05/17/2024 W1DR01 / [id number] / [id number] documented as of this encounter Advance Directives * Full Code (Latest Code Status on File) Date Activated Date Inactivated Comments 12/24/2022 11:13 AM 12/27/2022 10:05 PM This order reflects the patients wishes and were consensually agreed upon. Question Answer Comments Discussion of Advance Directives occurred with: Patient Care Teams Garment Patternmaker Relationship Specialty Start Date End Date Nazario Whaley DO [address] [place] [address] PCP - General Internal Medicine 08/10/24 documented as of this encounter
--- OUTSIDE RECORDS SUMMARY | 2024-08-26 09:37 | External Medical Summary | Summary of Care ---
Author Name Unknown Organization [facility] Address [address] [place] [address] Phone [phone] Care Team Providers Care Oil Burner Technician Name Role Phone Vincent Slaughter MD Primary Care Provider + Reason for Visit * Reason Comments Medication Management Encounter Details Date Type Department Care Team (Late st Contact Info) Description 08/05/2024 9:00 AM [facility] Pharmacy Pharmacy Hematology Oncology [facility] [address], [place] [phone] [facility] Hem/Onc [address] [place], [place] [phone] CLL (chronic lymphocytic leukemia) ([facility])* Allergies Active Allergy Reactions Criticality Noted Date [...] 0.1 % Nasal Solution (Astelin) Administer 1 Cecil into nostril in the morning and 1 Cecil before bedtime. 30 mL 12 3 Active [...] hemisphere infarct. Mri 01/14/2007 Mri done at [facility] Statin intolerance 07/27/2007 Overview (07/27/2007): [...] hemisphere infarct. 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 8 weeks 02/23/2007 11/17/2008 Overview (11/17/2008): Modified per CVA protocol #8 Chronic rhinitis 09/16/2005 12/31/2017 Deviated nasal septum 03/27/20052017 Acquired deformity of nose 03/27/2005 1 08/31/2016 NASAL & SINUS DIS NEC 03/27/20052016 Other chronic sinusitis 03/27/200508/2018 CHRONIC LYMPHOID LEUKEMIA [place] [facility] MENTION OF REMISSION 02/25/2005 04/14/2018 ADVANCE DIRECTIVE [...] Progress Notes * Leanna Strange OSA - 08/05/2024 9:00 AM EST MEDICATION THERAPY MANAGEMENT CHLORAMBUCIL (LEUKERAN) TREATMENT PROGRESS NOTE Luis M Tirado [phone] Patient Phone Numbers SPEAK LOUD HARD OF HEARING AND DIFFICULTY WITH TOUCH SCREEN PHONE Communication: Spoke to: Patient Current Treatment: Medication: Chlorambucil (Leukeran) Indication: CLL Dose: 2 mg daily Administration: by mouth without regards to food Start Date: 11/16/19; 11/30/23 Primary Footwear Sales Associate: Dr. Omero Asencio is planning to go for labs today via walk in [employer] Career Technical Counselor Pharmacy Hematology Oncology Oral Chemotherapy Clinic Medication Therapy Disease Management [facility] 08/05/24 9:58 AM Time Spent on Encounter: < 5 [...] 9:00 AM EST Pharmacy Pharmacy Hematology Oncology [address] [address] [facility] Hem/Onc [address] [place] [address] 09/06/2024 2:30 PM EST Office Visit Hematology/Oncology [facility] [address] [place] [phone] Lucien Jamil MD [address] [place] [id number] 10/04/2024 9:00 AM EST Office Visit Allergy/Immunology [facility] [address] [place] [address] Ric Cherry MD [address] [facility] [place] [address] 11/22/2024 11:00 AM EDT Office Visit Cardiology, [facility] [address] [place] [address] Cuauhtemoc Jo DO [address] [place] [address] 11/30/2024 12:00 PM EDT Office Visit Pulmonary Medicine, [facility] [address] [place] [address] Phillip Hernandez MD [address] [facility] [address] Health Maintenance Due Date Last Done Comments COVID-19 Vaccine (#1) 02/07/1945 Zoster Vaccines (1 of 2) 02/07/1959 Adult Wellness Visit 02/07/2006 CKD PHOS USE SMARTSET 80841 11/29/202311/03, 11/07/2022, 10/16/2021, Additional history exists Influenza Vaccine (FLU shot) (#1) 2024 Albumin/Creatinine Ratio 05/22/2024 023, 05/09/2022, 09/17/1999 Depression Screening 05/22/2024 05/22/2023 DTap/Tdap Vaccines (4 - Td or Tdap) 12/01/2024 12/01/2014, 12/01/2014, 12/01/2014 GFR 01/20/2025 07/22/2024, 12/11/2023, 06/23/2024, Additional history exists O2 ASSESSMENT COMPLETED IN PAST YEAR FOR COPD 06/11/2025 06/11/2024 CKD HGB USE SMARTSET 60156 07/22/202507/22, 07/22/2024, 07/07/2024, Additional history exists Pneumococcal [...] this encounter Medical Devices Implanted Type Area Street Light Repairer Device Identifier Shelf Expiration Date Model / Serial / Lot Valve Korey 3 Ultra 26mm - [id number] Implanted:Qty: 1 on 12/24/2022 by Jesse Tanner MD at [facility] [employer] [id number] 07/03/2023 [id number] / / Lead Pace Selectsecure 3830-69 - [id number] Implanted:Qty: 1 on 12/26/2022 by Keily Kelley IV, MD at [facility] [employer] : CRM [id number] 11/19/2024 [id number] 9 / [id number] / [id number] Lead Novus Bipolar 52cm - [id number] Implanted:Qty: 1 on 12/26/2022 by Keily Kelley IV, MD at [facility] [employer] : CRM [id number] 10/10/2024 5076- 52 / [id number] / [id number] Pacemaker Abram Xt Dr Mri [facility] - [id number] Implanted:Qty: 1 on 12/26/2022 by Keily Kelley IV, MD at [facility] [employer] [id number] 05/17/2024 [id number] / [id number] / [id number] documented as of this encounter Visit Diagnoses [...] Advance Directives occurred with: Patient Care Teams Oil Burner Technician Relationship Specialty Start Date End Date Vincent Slaughter MD [address] [place] [address] PCP - General Internal Medicine 05/22/21 documented as of this encounter
--- OUTSIDE RECORDS SUMMARY | 2024-08-26 09:37 | External Medical Summary | Summary of Care ---
Author Name Unknown Organization [facility] Address [address] [place] [address] Phone [phone] Care Team Providers Care Review Assistant Name Role Phone Nazario Whaley Primary Care Provid er Reason for Visit * Reason Comments Medication Management Encounter Details Date Type Department Care Team (Late st Contact Info) Description 08/24/2024 9:00 AM [facility] Pharmacy Pharmacy Hematology Oncology [facility] [address] [place], [place] [phone] [facility] Hem[facility]Onc [address] [place], [place] [phone] CLL (chronic lymphocytic leukemia) ([facility])* Allergies Active Allergy Reactions Criticality Noted [...] 0.1 % Nasal Solution (Astelin) Administer 1 [place] into nostril in the morning and 1 Austin before bedtime. 30 mL 12 3 Active [...] inhalation solution 2.5 mgIndications:ILD (interstitial lung disease) ([facility]),Hypersensitivity pneumonitis (HCC),COPD, group B, by GOLD [...] hemisphere infarct. Mri 01/14/2007 Mri done at [facility] Statin intolerance 07/27/2007 Overview (07/27/2007): Hepatitis [...] hemisphere infarct. Mri 01/14/2007 Mri done at [facility] Cerebrovascular event, ill-d efined, within last 8 weeks 02/23/2007 11/17/2008 Overview (11/17/2008): Modified per CVA protocol #8 Chronic rhinitis 09/16/2005 12/31/2017 Deviated nasal septum 03/27/20052017 Acquired deformity of nose 03/27/2005 1 08/31/2016 NASAL & SINUS DIS NEC 03/27/20052016 Other chronic sinusitis 03/27/200508/2018 CHRONIC LYMPHOID LEUKEMIA [place] [facility] MENTION OF REMISSION 02/25/2005 04/14/2018 ADVANCE [...] Assessment Author No 12/24/2022 6:50 PM EDT Endi Fox RN documented as of this encounter Mental Status * Because of a physical, mental, or emotional condition, do you have serious difficulty concentrating, remembering, or making decisions? (5 years old or older) Answer Entry Date Author No 12/24/2022 6:50 PM EDT Enid Fox RN documented in this encounter Progress Notes * [place], [facility] - 08/23/2024 1:46 PM EST MEDICATION THERAPY MANAGEMENT CHLORAMBUCIL (LEUKERAN) TREATMENT PROGRESS NOTE Luis M Tirado [phone] Patient Phone Numbers [employer] [phone] SPEAK LOUD HARD OF HEARING AND DIFFICULTY WITH TOUCH SCREEN PHONE Communication: Chart review Current Treatment: Medication: Chlorambucil (Leukeran) Indication: CLL Dose: 2 mg daily Administration: by mouth without regards to food Start Date: 11/16/19; 11/30/23 Primary Property Technician: Dr. Jamil Prophylactic Meds: Allopurinol 200 mg by mouth daily Interval History: Leukeran held 01/18/20 - 08/10/20 and 10/2021-11/29/23 due to declining WBC and side effects Per TE 11/14/23, WBC increasing and pt advised to resume chlorambucil Per MOHS OV 01/05/24, advised to continue triamcinolone cream to skin BID and continue vinegar soaks Per OV 06/02/24, continue q2wk lab monitoring Per TE 08/23/24, pt would like to HOLD treatment due to ongoing skin issues and lesions Changes to medication list since last visit? No Assessment and Plan: MTM to follow up after OV to assess treatment plan Assessment of compliance: non compliant Dose adjustment needed based on lab or adverse drug reaction? No Follow up: 2 weeks OV/labs; 3 weeks MTM [place], PharmD, BCOP Clinical Pharmacist, [facility] Oral Chemotherapy [facility] 08/23/2024, 1:48 PM Pertinent labs: N/A Time Spent on Encounter: 6 - 10 minutes Encounter Group: Hematology Encounter Interventions Item Category: Oral Chemotherapy Chlorambucil Problem/Rationale: Safety: Adverse medication event - Undesirable effect Pharmacist Intervention(s): Medication held Magnitude of Intervention: Monitoring with no interventions (Level 0) documented in this encounter Plan of Treatment Upcoming Encounters Date Type Department Care Team (Late st Contact Info) Description 08/23/2024 2:15 PM EST Office Visit [facility] [address] [facility] [place] [address] Candace Aguilar MD [address] [facility] [place] [address] Arrived 09/06/2024 2:30 PM EST Office Visit Hematology/Oncology [facility] [address] [facility] [place] [phone] Lucien Jamil MD [address] [place] [address] [place] [address] 09/13/2024 9:15 AM EST Pharmacy Pharmacy Hematology Oncology [facility] [address] [place] [address] [facility] Hem[facility]c [address] [place] [address] 10/04/2024 9:00 AM EST Office Visit Allergy/Immunology [facility] [address] [facility] [place] [address] Ric Cherry MD [address] [facility] [place] [address] 11/22/2024 11:00 AM EDT Office Visit Cardiology, [facility] [address] [facility] [place] [address] Cuauhtemoc Jo DO [address] [place] [address] 11/30/2024 12:00 PM EDT Office Visit Pulmonary Medicine, [facility] [address] [place] [address] Phillip Hernandez MD [address] [facility] [place] [address] Health Maintenance Due Date Last Done Comments COVID-19 Vaccine (#1) 02/07/1945 Zoster Vaccines (1 of 2) 02/07/1959 Adult Wellness Visit 02/07/2006 CKD PHOS USE SMARTSET 86462 11/29/202311/03, 11/07/2022, 10/16/2021, Additional history exists Influenza Vaccine (FLU shot) (#1) 2024 Albumin/Creatinine Ratio 05/22/2024 023, 05/09/2022, 09/17/1999 Depression Screening 05/22/2024 05/22/2023 DTap/Tdap Vaccines (4 - Td or Tdap) 12/01/2024 12/01/2014, 12/01/2014, 12/01/2014 GFR 02/02/2025 08/05/2024, 07/04, 07/07/2024, Additional history exists O2 ASSESSMENT COMPLETED IN PAST YEAR FOR COPD 06/11/2025 06/11/2024 CKD HGB USE SMARTSET 84621 08/05/202508/05, 08/05/2024, 07/22/2024, Additional history exists Pneumococcal [...] this encounter Medical Devices Implanted Type Area Emergency Room Tech Device Identifier Shelf Expiration Date Model / Serial / Lot Valve Korey 3 Ultra 26mm - [id number] Implanted:Qty: 1 on 12/24/2022 [place] Jesse Tanner [place] [facility] [employer] [id number] 07/03/2023 [id number] / / Lead Pace Selectsecure 3830-69 - [id number] Implanted:Qty: 1 on 12/26/2022 by Keily Kelley IV, MD at [facility] [employer] : CRM [id number] 11/19/2024 18790 9 / [id number] / [id number] Lead Novus Bipolar 52cm - [id number] Implanted:Qty: 1 on 12/26/2022 by Keily Kelley IV, MD at [facility] [employer] : CRM [id number] 10/10/2024 5076- 52 / [id number] / [id number] Pacemaker [place] Xt Dr Kwesi [facility] - [id number] Implanted:Qty: 1 on 12/26/2022 by Keily Kelley IV, MD at [facility] [employer] [id number] 05/17/2024 W1DR01 / [id number] / [id number] documented as of this encounter Visit Diagnoses [...] Advance Directives occurred with: Patient Care Teams Review Assistant Relationship Specialty Start Date End Date Nazario Whaley DO [address] [place], [place] [address] PCP - General Internal Medicine 08/10/24 documented as of this encounter
--- OUTSIDE RECORDS SUMMARY | 2024-08-26 09:38 | External Medical Summary | Summary of Care ---
Author Name Unknown Organization [facility] Address [address] [place] [address] Phone [phone] Care Team Providers Care Manager Of Compliance Name Role Phone Vincent Slaughter MD Primary Care Provider + Reason for Visit * Reason Comments Medication Management Encounter Details Date Type Department Care Team (Late st Contact Info) Description 07/07/2024 9:00 AM [facility] Pharmacy Hematology Oncology [facility] [address], [place] [phone] [facility] [place] 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 18 g 5 2 Active Spacer/Aero-Hold ing Chambers DeviceIndication s:Pneumonia due to COVID-19 virus Use with inhaler as directed . 1 Each 2 Active oxyCODONE-Acetam inophen 5-325 MG Oral Tablet (Percocet)Indica tions:Persistent headaches Take 1 Tablet by mouth every 6 hours as needed for Pain, Breakthrough. 1 TABLET EVERY 6 HOURS NEEDED 60 Tablet 3 Active Azelastine HCl 0.1 % Nasal Solution (Astelin) Administer 1 [place] into nostril in the morning and 1 [place] before bedtime. 30 mL 12 3 Active Colchicine 0.6 MG Oral TabletIndication s:Idiopathic chronic gout of multiple sites without tophus [...] Ellipta 200-62.5-25 MCG/ACT Aerosol Powder Breath Activated (Fluticasone-Ume clidinium-Vilant krista)Indications :Bronchiectasis without complication (HCC),Chronic bronchitis, unspecified chronic bronchitis type (HCC),COPD (chronic obstructive pulmonary disease) with chronic bronchitis (HCC),ILD (interstitial lung disease) (HCC) Inhale 1 Puff by mouth in the morning. 60 Blister Dosing Unit 3 4 Active Metoprolol Succinate ER 25 MG Oral Tablet Extended Release 24 Hour (toPROL XL)Indications:A scending aorta dilatation (HCC) TAKE 1 TABLET BY MOUTH TWICE DAILY every morning and before bedtime 180 Tablet 1 4 Active Fexofenadine HCl 180 MG Oral Tablet (Yolanda) Take 1 Tablet by mouth in the morning. Active Montelukast Sodium 10 MG Oral Tablet (Singulair)Indic ations:Post-nasa l drainage,Allergi c rhinitis, unspecified seasonality, unspecified trigger Take 1 Tablet by mouth in the morning. 30 Tablet 5 4 Active Losartan Potassium 50 MG Oral Tablet (Cozaar)Indicati ons:HTN, goal below 140/90 TAKE 1 TABLET BY MOUTH EVERY MORNING 30 Tablet 5 4 Active Chlorambucil 2 MG Oral Tablet (Leukeran)Indica tions:CLL (chronic lymphocytic leukemia) (HCC) Take 1 Tablet by mouth in the morning. Take medication on an empty stomach.. 30 Tablet 5 06/29/2024 1:18 PM EST 4 Active Allopurinol 100 MG Oral Tablet (Zyloprim)Indica tions:Idiopathic chronic gout of multiple sites without tophus Take 1 Tablet by mouth in the morning. 30 Tablet 11 4 Active Doxycycline Monohydrate 100 MG Oral Capsule Take 1 Capsule by mouth in the morning and 1 Capsule before bedtime. Do all this for 7 days. 14 Capsule 4 024 Discontin ued(Medic ation List Clean Up) methylPREDNISolo ne 4 MG Oral Tablet Therapy Pack (Medrol Dosepack)Indicat ions:Acute recurrent maxillary sinusitis follow package directions 21 Tablet 4 024 Discontin ued(Medic ation List Clean Up) Azithromycin 250 MG Oral Tablet (Zithromax)Indic ations:Acute recurrent maxillary sinusitis Take 2 tabs by mouth on the first day, then 1 tab daily on days two through five 6 Tablet 4 024 Discontin ued(Medic ation List Clean Up) Hospital, Clinic, or Other Facility Administered Medication Ordered Dose Route Frequency Start Date End Date Status Albuterol Sulfate (Proventil) (2.5 MG/3ML) 0.083% inhalation solution 2.5 mgIndications:ILD (interstitial lung disease) ([facility]),Hypersensitivity pneumonitis (HCC),COPD, group B, by GOLD 2017 classification ([facility]),Dyspnea on exertion,Chronic cough 2.5 mg NEBULIZER ONCE PRN 01/07/2024 01/06/2025 Ac tive documented as of this encounter (statuses as of 07/07/2024) Active Problems Problem Noted Date Diagnosed Date [...] hemisphere infarct. Mri 01/14/2007 Mri done at [facility] Statin intolerance 07/27/2007 Overview (07/27/2007): Hepatitis with Zocor Other sleep apnea 06/01/2001 documented as of this encounter (statuses as of 07/07/2024) Resolved Problems Problem Noted Date Diagnosed Date [...] hemisphere infarct. Mri 01/14/2007 Mri done at [facility] Cerebrovascular event, ill-d efined, within last 8 weeks 02/23/2007 11/17/2008 Overview (11/17/2008): Modified per CVA protocol #8 Chronic rhinitis 09/16/2005 12/31/2017 Deviated nasal septum 03/27/20052017 Acquired deformity of nose 03/27/2005 1 08/31/2016 NASAL & SINUS DIS NEC 03/27/20052016 Other chronic sinusitis 03/27/2005 080 08/2018 CHRONIC LYMPHOID LEUKEMIA WI THOUT MENTION OF REMISSION 02/25/2005 04/14/2018 ADVANCE DIRECTIVE [...] as of this encounter (statuses as of 07/07/2024) Immunizations Name Administration Dates Next Due Pneumococcal [...] 6:50 PM NIHARIKAT Enid Fox RN * Do you have difficulty dressing or bathing? (5 years old or older) Answer Date of Assessment Author No 12/24/2022 6:50 PM EDEnid Neely RN * Because of a physical, mental, or emotional condition, do you have difficulty doing errands alone such as visiting a doctors office or shopping? (15 years old or older) Answer Date of Assessment Author No 12/24/2022 6:50 PM Eind Jo RN documented as of this encounter Mental Status * Because of a physical, mental, or emotional condition, do you have serious difficulty concentrating, remembering, or making decisions? (5 years old or older) Answer Entry Date Author No 12/24/2022 6:50 PM Enid Jo RN documented in this encounter Progress Notes * Juanis Bay, [facility] - 07/07/2024 2:56 PM EST MEDICATION THERAPY MANAGEMENT CHLORAMBUCIL (LEUKERAN) TREATMENT PROGRESS NOTE Luis M Tirado [phone] Patient Phone Numbers SPEAK LOUD HARD OF HEARING AND DIFFICULTY WITH TOUCH SCREEN PHONE Communication: Spoke to: Patient Current Treatment: Medication: Chlorambucil (Leukeran) Indication: CLL Dose: 2 mg daily Administration: by mouth without regards to food Start Date: 11/16/19; 11/30/23 Primary Associate Pastor: Dr. Jamil Prophylactic Meds: Allopurinol 200 mg by mouth daily Interval History: Leukeran held 01/18/20 - 08/10/20 and 10/2021-11/29/23 due to declining WBC and side effects Per TE 11/14/23, WBC increasing and pt advised to resume chlorambucil Per MOHS OV 01/05/24, advised to continue triamcinolone cream to skin BID and continue vinegar soaks Per OV 06/02/24, continue q2wk lab monitoring Continues to endorse skin changes - nothing new and continues close follow up with dermatology No other concerns, tolerating therapy well Changes to medication list since last visit? No Assessment and Plan: WBC/ALC elevated but stable BUN declining to WNL All other labs stable Advised pt to continue to monitor skin and follow up with scratch polisher Continue chlorambucil with labs every 2 weeks Mailed lab results as per patient request Assessment of compliance: compliant Dose adjustment needed based on lab or adverse drug reaction? No Follow up: 2 weeks Juanis Bay, PharmD, BCOP Clinical Pharmacist, [facility] Oral Chemotherapy [facility] 07/07/2024, 3:08 PM Pertinent labs: Latest Reference Range & Units 05/31/24 10:10 06/23/24 09:10 07/07/24 13:35 WBC 4.00 - 10.80 K/uL 21.40 (H) 29.87 (H) 25.44 (H) RBC 4.50 - 5.25 M/uL 3.58 3.75 3.74 HGB 14.0 - 16.8 g/dL 11.3 (L) 11.9 (L) 11.9 (L) HCT 40.0 - 48.4 % 36.0 (L) 37.8 (L) 37.1 (L) MCV 82.0 - 99.5 fL 100.6 100.8 99.2 MCH 27.0 - 34.0 pg 31.6 31.7 31.8 MCHC 32.0 - 36.0 g/dL 31.4 31.5 32.1 RDW 11.5 - 15.5 % 14.3 14.5 14.1 PLT 140 - 400 K/uL 99 (L) 97 (L) 98 (L) MPV 6.6 - 11.1 fL 9.2 9.0 9.7 CBC WITH WBC DIFFERENTIAL Rpt ! Rpt ! Rpt ! Absolute Neutrophils 1.80 - 7.70 K/uL 3.00 2.99 4.07 Absolute Lymphocytes 1.00 - 4.80 K/uL 17.33 (H) 26.58 (H) 20.86 (H) Latest Reference Range & Units 05/31/24 10:10 06/23/24 09:10 07/07/24 13:35 BUN 6 - 20 mg/dL 19 22 (H) 16 CREATININE 0.6 - 1.2 mg/dL 1.3 (H) 1.4 (H) 1.4 (H) EGFR >=60 mL/min 53 (L) 50 (L) 51 (L) Latest Reference Range & Units 05/31/24 10:10 06/23/24 09:10 07/07/24 13:35 Albumin 3.8 - 5.0 g/dL 4.3 4.4 4.7 AST 10 - 50 U/L 21 18 20 ALT 10 - 50 U/L <5 (L) 10 11 Alkaline Phosphatase 35 - 130 U/L 78 71 79 Bilirubin, Total <=1.2 mg/dL 0.5 0.5 0.6 Suggested Labs: Monitor LFTs, CBC/diff weekly, with WBC monitored twice weekly during the first 3 to 6 weeks of treatment Time Spent on Encounter: 6 - 10 minutes Encounter Group: Hematology Encounter Interventions Item Category: Oral Chemotherapy Chlorambucil Problem/Rationale: Safety: Needs additional monitoring - Medication Requires monitoring Pharmacist Intervention(s): Care coordination, Lab monitoring, and Toxicity monitoring Magnitude of Intervention: Monitoring with direction (Level 1) documented in this encounter Plan of Treatment Upcoming Encounters Date Type Department Care Team (Late st Contact Info) Description 07/21/2024 9:00 AM EST Pharmacy Pharmacy Hematology Oncology [facility] [address] [place] [address] [facility] [place] [facility] Hem/Onc [address] [place] [address] 09/06/2024 2:30 PM EST Office Visit Hematology/Oncology [facility] [place] [address] [place] [address] Lucien Jamil MD [address] [place] [address] 10/04/2024 9:00 AM EST Office Visit Allergy/Immunology [facility] [address] [facility] [place], [place] [address] Ric Cherry MD [address] [facility] [place], [place] [address] 11/22/2024 11:00 AM EDT Office Visit Cardiology, [facility] [address] [facility] [place] [address] Cuauhtemoc Jo DO [address] [place] [address] 11/30/2024 12:00 PM EDT Office Visit Pulmonary Medicine, [facility] [address] [facility] [place] [address] Phillip Hernandez MD [address] [place] [facility] [place] [address] 12/03/2024 11:15 AM EDT Office Visit Otolaryngology [facility] [address] [facility] [place] [address] Susanne Thrasher MD [address] [place] [address] Health Maintenance Due Date Last Done Comments COVID-19 Vaccine (#1) 02/07/1945 Zoster Vaccines (1 of 2) 02[birth year]07/1959 Adult Wellness Visit 02/07/2006 CKD PHOS USE SMARTSET 29050 11/29/202311/03, 11/07/2022, 10/16/2021, Additional history exists Influenza Vaccine (FLU shot) (#1) 2024 Albumin/Creatinine Ratio 05/22/2024 023, 05/09/2022, 09/17/1999 Depression Screening 05/22/2024 05/22/2023 DTap/Tdap Vaccines (4 - Td or Tdap) 12/01/2024 12/01/2014, 12/01/2014, 12/01/2014 GFR 01/05/2025 07/07/2024, 06/05, 05/31/2024, Additional history exists O2 ASSESSMENT COMPLETED IN PAST YEAR FOR COPD 06/11/2025 06/11/2024 CKD HGB USE SMARTSET 22812 07/07/202507/07, 07/07/2024, 06/23/2024, Additional history exists Pneumococcal Vaccine: 65+ Years Completed 07/01/2017, 06/26/2016, 10/11/2004 Alpha-1 Antitrypsin [...] this encounter Medical Devices Implanted Type Area Livestock Caretaker Device Identifier Shelf Expiration Date Model / Serial / Lot Valve Korey 3 Ultra 26mm - [id number] Implanted:Qty: 1 on 12/24/2022 by Jesse Tanner MD at [facility] [place] [employer] [id number] 07/03/2023 [id number] / / Lead Pace Selectsecure 3830-69 - [id number] Implanted:Qty: 1 on 12/26/2022 by Keily Kelley IV, MD at [facility] [place] [employer] : CRM [id number] 11/19/2024 [id number] / [id number] / [id number] Lead Novus Bipolar 52cm - [id number] Implanted:Qty: 1 on 12/26/2022 by Keily Kelley IV, MD at [facility] [place] [employer] : CRM [id number] 10/10/2024 5076- 52 / [id number] / [id number] Pacemaker [employer] Xt Mri [facility] - [id number] Implanted:Qty: 1 on 12/26/2022 by Keily Kelley IV, MD at [facility] [place] [employer] [id number] 05/17/2024 [id number] / [id number] / [id number] documented as of this encounter Visit Diagnoses [...] Advance Directives occurred with: Patient Care Teams Manager Of Compliance Relationship Specialty Start Date End Date Vincent Slaughter MD [address] [place] [address] PCP - General Internal Medicine 05/22/21 documented as of this encounter
--- OUTSIDE RECORDS SUMMARY | 2024-08-26 09:38 | External Medical Summary ---
Author Name Unknown Address Unknown Organization K09:[facility] [address] [place] [address] Laboratory Report Ordering Provider Test Date Status KAMI CHAPMAN 07/22/2024 09:39:45 Final Observation Date Value Abnormality Reference (Units ) Status BUN 07/22/2024 09:39:45 18 6-20 (mg/dL) Final Creatinine 07/22/2024 09:39:45 1.2 0.6-1.2 (mg/dL) Final Glomerular filtration rate/1.73 sq M.predicted [Volume Rate/Area] in Serum, Plasma or Blood by Creatinine-based formula (CKD-EPI) 07/22/2024 09:39:45 59 Below low normal >=60 (mL/min) Final eGFR is calculated based on the CKD-EPI 2020 equation. Sodium 07/22/2024 09:39:45 143 135-146 (m mol/L) Final Potassium 07/22/2024 09:39:45 4.1 3.5-5.1 (m mol/L) Final Cl 07/22/2024 09:39:45 107 98-107 (mm ol/L) Final CO2 07/22/2024 09:39:45 26 22-32 (mmo l/L) Final Anion gap 07/22/2024 09:39:45 10 7-15 (mmol /L) Final Glucose 07/22/2024 09:39:45 93 70-120 (mg /dL) Final Albumin 07/22/2024 09:39:45 4.3 3.8-5.0 (g /dL) Final AST (Aspartate aminotransferase) 07/22/2024 09:39:45 19 10-50 (U/L) Fin al Alk Phos 07/22/2024 09:39:45 69 35-130 (U/ L) Final Bilirubin, Total 07/22/2024 09:39:45 0.5 <=1 .2 (mg/dL) Final Calcium 07/22/2024 09:39:45 9.2 8.4-10.2 ( mg/dL) Final Protein 07/22/2024 09:39:45 6.2 6.0-8.3 (g /dL) Final ALT (Alanine aminotransferase) 07/22/2024 09:39:45 5 Below low normal 10-50 (U/L) Final Performing Location [facility] [address] [place] [address]
--- OUTSIDE RECORDS SUMMARY | 2024-08-26 09:38 | External Medical Summary ---
Author Name Unknown Address Unknown Organization K[facility] [place] [address] Laboratory Report Ordering Provider Test Date Status KAMI CHAPMAN 07/22/2024 09:39:45 Final 2 times a week for 3-6 weeks , then every 1-2 weeks. Observation Date Value Abnormality Reference (Units ) Status SYNC LEUKOCYTES IN BLOOD BY AUTOMATED COUNT 07/22/2024 09:39:45 17.03 Above high normal 4.00-10.80 (K/uL) Final Segs 07/22/2024 09:39:45 17.3 Below low normal 40.0-75.0 (%) Final Lymphs % 07/22/2024 09:39:45 77.7 Above high normal 18.0-42.0 (%) Final Monos 07/22/2024 09:39:45 4.5 1.0-11.0 (%) Final Eosinophils 07/22/2024 09:39:45 0.4 0.0-6.0 (%) Final Basos 07/22/2024 09:39:45 0.1 0.0-2.0 (%) Final Absolute Segs 07/22/2024 09:39:45 2.94 1.80-7.70 (K/uL) Final Lymphs, absolute 07/22/2024 09:39:45 13.23 Above high normal 1.00-4.80 (K/ul) Final Monos, Abs 07/22/2024 09:39:45 0.77 0.00-1.10 (K/uL) Final Eos, Abs 07/22/2024 09:39:45 0.07 0.00-0.70 (K/uL) Final Basos, Abs 07/22/2024 09:39:45 0.02 0.00-0.20 (K/uL) Final Performing Location [facility] [place] [address]
--- OUTSIDE RECORDS SUMMARY | 2024-08-26 09:38 | External Medical Summary | Summary of Care ---
Author Name Unknown Organization [facility] Address [address] [place] [address] Phone [phone] Care Team Providers Care Pipe Coverer Helper Name Role Phone Vincent Slaughter MD Primary Care Provider + Reason for Visit * Reason Comments Outpatient Testing Encounter Details Date Type Department Care Team (Late st Contact Info) Description 07/22/2024 9:30 AM EST Laboratory Laboratory Scenery [facility] [address] [place] [address] [facility] Lab Scenery [address] [place] [address] CLL (chronic lymphocytic leukemia) (HCC) Allergies Active Allergy Reactions Criticality Noted Date Comments Heparin High 01/01/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 30 mL 12 3 Active [...] solution 2.5 mgIndications:ILD (interstitial lung disease) ([facility]),Hypersensitivity pneumonitis (HCC),COPD, group B, by GOLD 2017 classification ([facility]),Dyspnea on exertion,Chronic cough 2.5 mg NEBULIZER ONCE PRN 01/07/2024 01/06/2025 Ac tive documented as of this encounter (statuses as of 07/22/2024) Active Problems Problem Noted Date Diagnosed Date [...] hemisphere infarct. Mri 01/14/2007 Mri done at [facility] Statin intolerance 07/27/2007 Overview (07/27/2007): Hepatitis with Zocor Other sleep apnea 06/01/2001 documented as of this encounter (statuses as of 07/22/2024) Resolved Problems Problem Noted Date Diagnosed Date [...] hemisphere infarct. Mri 01/14/2007 Mri done at [facility] Cerebrovascular event, ill-d efined, within last [...] as of this encounter (statuses as of 07/22/2024) Immunizations Name Administration Dates Next Due Pneumococcal [...] Care Team (Late st Contact Info) Description 07/23/2024 9:00 AM EST Pharmacy Pharmacy Hematology Oncology [facility] [address] [place] [address] [facility] Hem/Onc [facility] [place] [address] 09/06/2024 2:30 PM EST Office Visit Hematology/Oncology [facility] [address] [place] [phone] Lucien Jamil MD [address] [facility] [place] [address] 10/04/2024 9:00 AM EST Office Visit Allergy/Immunology [facility] [address] [place] [address] Ric Cherry MD [address] [facility] [place] [address] 11/22/2024 11:00 AM EDT Office Visit Cardiology, [facility] [address] [place] [address] Cuauhtemoc Jo DO [address] [place] [address] 11/30/2024 12:00 PM EDT Office Visit Pulmonary Medicine, [facility] [address] [place] [address] Phillip Hernandez MD [address] [place] [address] Pending Results Name Type Priority Associated Diagnoses Date /Time CBC WITH WBC DIFFERENTIAL Lab STAT CLL (chronic lymphocytic leukemia) ([facility]) 07/22/2024 9:39 AM EST COMPREHENSIVE METABOLIC PANEL Lab STAT CLL (chronic lymphocytic leukemia) ([facility]) 07/22/2024 9:39 AM EST CBC Lab STAT CLL (chronic lymphocytic leukemia) ([facility]) 07/22/2024 9:39 AM EST DIFFERENTIAL, AUTOMATED Lab STAT CLL (chronic lymphocytic leukemia) ([facility]) 07/22/2024 9:39 AM EST Health Maintenance Due Date Last Done Comments COVID-19 Vaccine (#1) 02/07/1945 Zoster Vaccines (1 of 2) 02/07/1959 Adult Wellness Visit 02/07/2006 CKD PHOS USE SMARTSET 54962 11/29/202311/03, 11/07/2022, 10/16/2021, Additional history exists Influenza Vaccine (FLU shot) (#1) 2024 Albumin/Creatinine Ratio 05/22/2024 023, 05/09/2022, 09/17/1999 Depression Screening 05/22/2024 05/22/2023 DTap/Tdap Vaccines (4 - Td or Tdap) 12/01/2024 12/01/2014, 12/01/2014, 12/01/2014 GFR 01/05/2025 07/07/2024, 06/05, 05/31/2024, Additional history exists O2 ASSESSMENT COMPLETED IN PAST YEAR FOR COPD 06/11/2025 06/11/2024 CKD HGB USE SMARTSET 35984 07/07/202507/07, 07/07/2024, 06/23/2024, Additional history exists Pneumococcal [...] this encounter Medical Devices Implanted Type Area Funeral Location Manager Device Identifier Shelf Expiration Date Model / Serial / Lot Valve Korey 3 Ultra 26mm - [id number] Implanted:Qty: 1 on 12/24/2022 by Jesse Tanner MD at [facility] [place] [employer] [id number] 07/03/2023 [id number] / / Lead Pace [employer] 3830-69 - [id number] Implanted:Qty: 1 on 12/26/2022 by Keily Kelley IV, MD at [facility] [place] [employer] : CRM [id number] 11/19/2024 [id number] 9 / [id number] / [id number] Lead Novus Bipolar 52cm - [id number] Implanted:Qty: 1 on 12/26/2022 by Keily Kelley IV, MD at [facility] [place] [employer] : CRM [id number] 10/10/2024 5076- 52 / [id number] / [id number] Pacemaker [place] Xt [facility] - [id number] Implanted:Qty: 1 on 12/26/2022 by Keily Kelley IV, MD at [facility] [place] [employer] [id number] 05/17/2024 [id number] / [id number] / [id number] documented as of this encounter Visit Diagnoses [...] Advance Directives occurred with: Patient Care Teams Pipe Coverer Helper Relationship Specialty Start Date End Date Vincent Slaughter MD [address] [place] [address] PCP - General Internal Medicine 05/22/21 documented as of this encounter
--- OUTSIDE RECORDS SUMMARY | 2024-08-26 09:38 | External Medical Summary ---
Author Name Unknown Address Unknown Organization K09:[facility] [place] [address] Laboratory Report Ordering Provider Test Date Status KAMI CHAPMAN 07/22/2024 09:39:45 Final 2 times a week for 3-6 weeks , then every 1-2 weeks. Observation Date Value Abnormality Reference (Units ) Status Nucleated erythrocytes/100 leukocytes [Ratio] in Blood by Automated count 07/22/2024 09:39:45 Final Variant lymphocytes [Presence] in Blood by Light microscopy 07/22/2024 09:39:45 Present Abnormal None Seen Final Smudge cells [Presence] in Blood by Light microscopy 07/22/2024 09:39:45 Present Abnormal None Seen Final Performing Location [facility] [place] [address]
--- OUTSIDE RECORDS SUMMARY | 2024-08-26 09:38 | External Medical Summary ---
Author Name Unknown Address Unknown Organization K09:[facility] [place] [address] Laboratory Report Ordering Provider Test Date Status KAMI CHAPMAN 07/22/2024 09:39:45 Final 2 times a week for 3-6 weeks , then every 1-2 weeks. Observation Date Value Abnormality Reference (Units ) Status WBC, Total 07/22/2024 09:39:45 17.03 Above high normal 4 .00-10.80 (K/uL) Final RBC 07/22/2024 09:39:45 3.56 4.50-5.25 (M/uL) Final Hemoglobin 07/22/2024 09:39:45 11.2 Below low normal 14 .0-16.8 (g/dL) Final HCT 07/22/2024 09:39:45 35.4 Below low normal 40. 0-48.4 (%) Final MCV 07/22/2024 09:39:45 99.4 82.0-99.5 (fL) Final MCH 07/22/2024 09:39:45 31.5 27.0-34.0 (pg) Final MCHC 07/22/2024 09:39:45 31.6 32.0-36.0 (g/dL) Final RDW 07/22/2024 09:39:45 14.1 11.5-15.5 (%) Final Platelets 07/22/2024 09:39:45 92 Below low normal 140 -400 (K/uL) Final MPV 07/22/2024 09:39:45 9.2 6.6-11.1 ( fL) Final Performing Location [facility] [place] [address]
--- OUTSIDE RECORDS SUMMARY | 2024-08-26 09:38 | External Medical Summary | Summary of Care ---
Author Name Unknown Organization [facility] Address [address] [place] [address] Phone [phone] Care Team Providers Care Supervisor Rod Placing Name Role Phone Vincent Slaughter MD Primary Care Provider + Reason for Visit * Reason Comments Medication Management Encounter Details Date Type Department Care Team (Late st Contact Info) Description 07/21/2024 9:00 AM [facility] Pharmacy Pharmacy Hematology Oncology [facility] [address], [place] [phone] [facility] [place]c [address], [place] [id number] CLL (chronic lymphocytic leukemia) ([facility])* Allergies Active Allergy Reactions Criticality Noted Date Comments Heparin High 01/01/2023 ?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 30 mL 12 3 Active [...] as of this encounter (statuses as of 07/21/2024) Active Problems Problem Noted Date Diagnosed Date [...] hemisphere infarct. Mri 01/14/2007 Mri done at [facility] Statin intolerance 07/27/2007 Overview (07/27/2007): Hepatitis with Zocor Other sleep apnea 06/01/2001 documented as of this encounter (statuses as of 07/21/2024) Resolved Problems Problem Noted Date Diagnosed Date [...] hemisphere infarct. Mri 01/14/2007 Mri done at [facility] Cerebrovascular event, ill-d efined, within last 8 weeks 02/23/2007 11/17/2008 Overview (11/17/2008): Modified per CVA protocol #8 Chronic rhinitis 09/16/2005 12/31/2017 Deviated nasal septum 03/27/20052017 Acquired deformity of nose 03/27/2005 1 08/31/2016 NASAL & SINUS DIS NEC 03/27/20052016 Other chronic sinusitis 03/27/200508/2018 CHRONIC LYMPHOID LEUKEMIA [place] [facility] MENTION OF REMISSION 02/25/2005 04/14/2018 ADVANCE [...] as of this encounter (statuses as of 07/21/2024) Immunizations Name Administration Dates Next Due Pneumococcal [...] Progress Notes * Leanna Strange OSA - 07/21/2024 9:00 AM EST MEDICATION THERAPY MANAGEMENT CHLORAMBUCIL (LEUKERAN) TREATMENT PROGRESS NOTE Luis M Tirado [phone] Patient Phone Numbers SPEAK LOUD HARD OF HEARING AND DIFFICULTY WITH TOUCH SCREEN PHONE Communication: Spoke to: Patient Current Treatment: Medication: Chlorambucil (Leukeran) Indication: CLL Dose: 2 mg daily Administration: by mouth without regards to food Start Date: 11/16/19; 11/30/23 Primary Track Coach: Dr. Omero Asencio is planning to go for labs tomorrow via walk in. 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 Reactor Operator Pharmacy Hematology Oncology Oral Chemotherapy Clinic Medication Therapy Disease Management [facility] 07/21/24 9:37 AM Time Spent on Encounter: < 5 [...] 9:00 AM EST Pharmacy Pharmacy Hematology Oncology [address] [address] [facility] [place] Hem[facility]c [address] [place] [address] 09/06/2024 2:30 PM EST Office Visit Hematology/Oncology [facility] [address] [place] [phone] Lucien Jamil MD [address] [place] [address] 10/04/2024 9:00 AM EST Office Visit Allergy/Immunology [facility] [address] [place] [address] Ric Cherry MD 200 [facility] [place] [address] 11/22/2024 11:00 AM EDT Office Visit Cardiology, [facility] [address] Cuauhtemoc Jo DO 132 [facility] [place] [address] 11/30/2024 12:00 PM EDT Office Visit Pulmonary Medicine, [facility] 132 [facility] [place] [address] Phillip Hernandez MD [address] [facility] [address] Health Maintenance Due Date Last Done Comments COVID-19 Vaccine (#1) 02/07/1945 Zoster Vaccines (1 of 2) 02/07/1959 Adult Wellness Visit 02/07/2006 CKD PHOS USE SMARTSET 52219 11/29/202311/03, 11/07/2022, 10/16/2021, Additional history exists Influenza Vaccine (FLU shot) (#1) 2024 Albumin/Creatinine Ratio 05/22/2024 023, 05/09/2022, 09/17/1999 Depression Screening 05/22/2024 05/22/2023 DTap/Tdap Vaccines (4 - Td or Tdap) 12/01/2024 12/01/2014, 12/01/2014, 12/01/2014 GFR 01/05/2025 07/07/2024, 06/05, 05/31/2024, Additional history exists O2 ASSESSMENT COMPLETED IN PAST YEAR FOR COPD 06/11/2025 06/11/2024 CKD HGB USE SMARTSET 22014 07/07/202507/07, 07/07/2024, 06/23/2024, Additional history exists Pneumococcal [...] this encounter Medical Devices Implanted Type Area Machine Castings Plasterer Device Identifier Shelf Expiration Date Model / Serial / Lot Valve Korey 3 Ultra 26mm - [id number] Implanted:Qty: 1 on 12/24/2022 by Jesse Tanner [place] at [facility] [place] [employer] [id number] 07/03/2023 [id number] / / Lead Pace Selectsecure 3830-69 - [id number] Implanted:Qty: 1 on 12/26/2022 by Keily Kelley IV, MD at [facility] [place] [employer] : CRM [id number] 11/19/2024 [id number] / [id number] / [id number] Lead Novus Bipolar 52cm - [id number] Implanted:Qty: 1 on 12/26/2022 by Keily Kelley IV, MD at [facility] [place] [employer] : CRM [id number] 10/10/2024 5076- 52 / [id number] / [id number] Pacemaker Parul Xt [facility] - [id number] Implanted:Qty: 1 on 12/26/2022 by Keily Kelley IV, MD at [facility] [place] [employer] [id number] 05/17/2024 [id number] / [id number] / [id number] documented as of this encounter Visit Diagnoses [...] Advance Directives occurred with: Patient Care Teams Supervisor Rod Placing Relationship Specialty Start Date End Date Vincent Slaughter MD [address] [place] [place] [address] PCP - General Internal Medicine 05/22/21 documented as of this encounter
--- OUTSIDE RECORDS SUMMARY | 2024-08-26 09:38 | External Medical Summary | Summary of Care ---
Author Name Unknown Organization [facility] Address [address] [place] [address] Phone [phone] Care Team Providers Care Chief Deputy Sheriff Name Role Phone Vincent Slaughter MD Primary Care Provider + Reason for Visit * Reason Comments Medication Management Encounter Details Date Type Department Care Team (Late st Contact Info) Description 07/23/2024 9:00 AM [facility] Pharmacy Pharmacy Hematology Oncology [facility] [address] [place], [place] [phone] [facility] [place] Hem[facility]Onc [address], [place] [phone] CLL (chronic lymphocytic leukemia) ([facility])* Allergies Active Allergy Reactions Criticality Noted Date [...] 0.1 % Nasal Solution (Astelin) Administer 1 [place] into nostril in the morning and 1 [place] before bedtime. 30 mL 12 3 Active [...] hemisphere infarct. Mri 01/14/2007 Mri done at [facility] Statin intolerance 07/27/2007 Overview (07/27/2007): Hepatitis with [...] hemisphere infarct. Mri 01/14/2007 Mri done at [facility] Cerebrovascular event, ill-d efined, within last 8 [...] this encounter Progress Notes * [place]is [place], [facility] - 07/22/2024 1:11 PM EST MEDICATION THERAPY MANAGEMENT CHLORAMBUCIL (LEUKERAN) TREATMENT PROGRESS NOTE Luis M Tirado [phone] Patient Phone Numbers Mailpile [phone] SPEAK LOUD HARD OF HEARING AND DIFFICULTY WITH TOUCH SCREEN PHONE Communication: Spoke to: Patient Current Treatment: Medication: Chlorambucil (Leukeran) Indication: CLL Dose: 2 mg daily Administration: by mouth without regards to food Start Date: 11/16/19; 11/30/23 Primary Cutter Brake Lining: Dr. Jamil Prophylactic Meds: Allopurinol 200 mg [...] and continues close follow up with dermatology Pt requesting package insert print out to assess side effects No other concerns, tolerating therapy well Changes to medication list since last visit? 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 No Follow up: 2 weeks Juanis Bay, PharmD, OP Clinical Pharmacist, [facility] Oral Chemotherapy [facility] 07/22/2024, 1:27 PM Pertinent labs: Latest Reference Range & Units 06/23/24 09:10 07/07/24 13:35 07/22/24 09:39 WBC 4.00 - 10.80 K/uL 29.87 (H) 25.44 (H) 17.03 (H) RBC 4.50 - 5.25 M/uL 3.75 3.74 3.56 HGB 14.0 - 16.8 g/dL 11.9 (L) 11.9 (L) 11.2 (L) HCT 40.0 - 48.4 % 37.8 (L) 37.1 (L) 35.4 (L) MCV 82.0 - 99.5 fL 100.8 99.2 99.4 MCH 27.0 - 34.0 pg 31.7 31.8 31.5 MCHC 32.0 - 36.0 g/dL 31.5 32.1 31.6 RDW 11.5 - 15.5 % 14.5 14.1 14.1 PLT 140 - 400 K/uL 97 (L) 98 (L) 92 (L) MPV 6.6 - 11.1 fL 9.0 9.7 9.2 CBC WITH WBC DIFFERENTIAL Rpt ! Rpt ! Rpt ! Absolute Neutrophils 1.80 - 7.70 K/uL 2.99 4.07 2.94 Absolute Lymphocytes 1.00 - 4.80 K/ul 26.58 (H) 20.86 (H) 13.23 (H) Serum creatinine: 1.2 mg/dL 07/22/24 0939 Estimated creatinine clearance: 42.6 mL/min Latest Reference Range & Units 06/23/24 09:10 07/07/24 13:35 07/22/24 09:39 Albumin 3.8 - 5.0 g/dL 4.4 4.7 4.3 AST 10 - 50 U/L 18 20 19 ALT 10 - 50 U/L 10 11 5 (L) Alkaline Phosphatase 35 - 130 U/L 71 79 69 Bilirubin, Total <=1.2 mg/dL 0.5 0.6 0.5 Time Spent on Encounter: 6 - 10 [...] 9:00 AM EST Pharmacy Pharmacy Hematology Oncology [facility] [address] [place] [address] [facility] [place] Hem[facility]Onc [address] [place] [address] 09/06/2024 2:30 PM EST Office Visit Hematology/Oncology [facility] 200 [facility] [place] [phone] Lucien Jamil MD 200 [facility] [place] [address] 10/04/2024 9:00 AM EST Office Visit Allergy/Immunology [facility] [address] [facility] [place] [address] Ric Cherry MD 200 [facility] [place] [address] 11/22/2024 11:00 AM EDT Office Visit Cardiology, [facility] [place] [address] Cuauhtemoc Jo DO [address] [place] [address] 11/30/2024 12:00 PM EDT Office Visit Pulmonary Medicine, [facility] [address] [place] [address] Phillip Hernnadez MD [address] [place] [address] Health Maintenance Due Date Last Done Comments COVID-19 Vaccine (#1) 02/07/1945 Zoster Vaccines (1 of 2) 02/07/1959 Adult Wellness Visit 02/07/2006 CKD PHOS USE SMARTSET 54558 11/29/2023/02/2023, 11/07/2022, 10/16/2021, Additional history exists Influenza Vaccine (FLU shot) (#1) 2024 Albumin/Creatinine Ratio 05/22/2024 023, 05/09/2022, 09/17/1999 Depression Screening 05/22/2024 05/22/2023 DTap/Tdap Vaccines (4 - Td or Tdap) 12/01/2024 12/01/2014, 12/01/2014, 12/01/2014 GFR 01/20/2025 07/22/2024, 12/11/2023, 06/23/2024, Additional history exists O2 ASSESSMENT COMPLETED IN PAST YEAR FOR COPD 06/11/2025 06/11/2024 CKD HGB USE SMARTSET 86812 07/22/202507/22, 07/22/2024, 07/07/2024, Additional history exists Pneumococcal Vaccine: 65+ Years [...] this encounter Medical Devices Implanted Type Area Claim Rep Device Identifier Shelf Expiration Date Model / Serial / Lot Valve Korey 3 Ultra 26mm - [id number] Implanted:Qty: 1 on 12/24/2022 [place] Jesse Tanner [place] [facility] [place] [employer] [id number] 07/03/2023 [id number] / / Lead Pace Selectsecure 3830-69 - [id number] Implanted:Qty: 1 on 12/26/2022 by Keily Kelley IV, [place] [facility] [place] [employer] : CRM [id number] 11/19/2024 [id number] / [id number] / [id number] Lead Novus Bipolar 52cm - [id number] Implanted:Qty: 1 on 12/26/2022 by Keily Kelley IV, [place] [facility] [place] [employer] : CRM [id number] 10/10/2024 5076- 52 / [id number] / [id number] Pacemaker Parul Xt Dr Kw[facility] - [id number] Implanted:Qty: 1 on 12/26/2022 by Keily Kelley IV, [place] [facility] [place] [employer] [id number] 05/17/2024 [id number] / [id number] / [id number] documented as of this encounter Visit Diagnoses [...] Advance Directives occurred with: Patient Care Teams Chief Deputy Sheriff Relationship Specialty Start Date End Date Vincent Slaughter MD 200 [place] [address] PCP - General Internal Medicine 05/22/21 documented as of this encounter
--- OUTSIDE RECORDS SUMMARY | 2024-08-26 09:39 | External Medical Summary | Summary of Care ---
Author Name Unknown Organization [facility] Address [address] [place] [address] Phone [phone] Care Team Providers Care Refrigerator Cabinetmaker Name Role Phone Vincent Slaughter MD Primary Care Provider + Reason for Referral * Evaluate & Treat - Unlimited Visits (Within 10 days (routine)) - Authorized Specialty Diagnoses / Procedures Referred By Contcristo t Referred To Contact Allergy & Immunology / Allergy and Immunology Diagnoses Environmental allergies Allergic rhinitis, unspecified seasonality, unspecified trigger Nazario Whaley DO [address] [place] [address] Phone: tel: fax: Referral ID Status Reason Start Date Expiration Date Visits Requested Visits Authorized [id number] Authorized Specialty Services Required 06/11/[phone] Question Answer Referral Priority Within 10 days (routine) Where should this appointment be scheduled? [facility] For what condition is the patient being referred? Allergic Rhinitis/Allergic Conjunctivitis/Chronic Sinusitis/Nasal Polyps Reason for Visit * Reason Comments Cough Congestion Encounter Details Date Type Department Care Team (Latest Contact Info) Description 06/11/2024 9:20 AM EST Office Visit General Internal Medicine [employer] [address] [place] [address] Nazario Whaley DO [address] [place] [address] Environmental allergies*; HTN, goal below 140/90; Post-nasal drainage; Allergic rhinitis, unspecified seasonality, unspecified trigger; ILD (interstitial lung disease) (HCC); COPD, group B, by GOLD 2017 classification ([facility]); Acute recurrent maxillary sinusitis Allergies Active Allergy Reactions Criticality Noted Date Comments Heparin High 01/01/2023 ?Possible HIT Type 1, following TAVR 12/2022 Levofloxacin 07/23/2010 Itchy rash Penicillins High 08/21/2000 Hives Other reaction(s): Hives Simvastatin Liver complications (Please comment) 07/27/2007 Transaminitis documented as of this encounter (statuses as of 06/11/2024) Medications diphenhydrAMINE HCl 25 MG Oral Tablet [...] 0.1 % Nasal Solution (Astelin) Administer 1 Galatia into nostril in the morning and 1 [place] before bedtime. 30 mL 12 3 Active Allopurinol 100 MG Oral Tablet (Zyloprim)Indica tions:Idiopathic chronic gout of multiple sites without tophus Take 1 Tablet by mouth in the morning. 30 Tablet 11 3 Active Colchicine 0.6 MG Oral TabletIndication [...] with chronic bronchitis (HCC),ILD (interstitial lung disease) ([facility]) Inhale 1 Puff by mouth in the morning. 60 Blister Dosing Unit 3 4 Active Metoprolol Succinate ER 25 MG Oral Tablet Extended Release 24 Hour (toPROL XL)Indications:A scending aorta dilatation ([facility]) TAKE 1 TABLET BY MOUTH TWICE DAILY [...] Oral Tablet (Leukeran)Indica tions:CLL (chronic lymphocytic leukemia) ([facility]) Take 1 Tablet by mouth in the morning. Take medication on an empty stomach.. 30 Tablet 5 06/08/2024 11:41 AM EST 4 Active methylPREDNISolo ne 4 MG Oral Tablet Therapy Pack (Medrol Dosepack)Indicat ions:Acute recurrent maxillary sinusitis follow package directions 21 Tablet 4 Active Azithromycin 250 MG Oral Tablet (Zithromax)Indic ations:Acute recurrent maxillary sinusitis Take 2 tabs by mouth on the first day, then 1 tab daily on days two through five 6 Tablet 4 024 Active Azithromycin 500 MG Oral Tablet (Zithromax) Take 1 tablet 30-60 mg prior to any dental work. 1 Tablet 4 3 024 Discontin ued(Refil l) Azithromycin 500 MG Oral Tablet (Zithromax)Indic ations:Acute recurrent maxillary sinusitis Take 1 tablet 30-60 mg prior to any dental work. 1 Tablet 4 4 024 Discontin ued(Medic ation/Dos e Changed) Hospital, Clinic, or Other Facility Administered Medication Ordered Dose Route Frequency Start Date End Date Status Albuterol Sulfate (Proventil) (2.5 MG/3ML) 0.083% inhalation solution 2.5 mgIndications:ILD (interstitial lung disease) (HCC),Hypersensitivity pneumonitis (HCC),COPD, group B, by GOLD 2017 classification (HCC),Dyspnea on exertion,Chronic cough 2.5 mg NEBULIZER ONCE PRN 01/07/2024 01/06/2025 Ac tive documented as of this encounter (statuses as of 06/11/2024) Active Problems Problem Noted Date Diagnosed Date [...] as of this encounter (statuses as of 06/11/2024) Resolved Problems Problem Noted Date Diagnosed Date [...] chronic sinusitis 03/27/200508/2018 CHRONIC LYMPHOID LEUKEMIA WI THOUT MENTION OF [...] as of this encounter (statuses as of 06/11/2024) Immunizations Name Administration Dates Next Due Pneumococcal [...] on file documented as of this encounter Last Filed Vital Signs Vital Sign Reading Time Taken Comments Blood Pressure 122/74 06/11/2024 9:24 AM EST Pulse 66 06/11/2024 9:24 AM EST Temperature 36.1 C (96.9 F) 06/11/2024 9:24 AM ES T Respiratory Rate - - Oxygen Saturation 99% 06/11/2024 9:24 AM EST Inhaled Oxygen Concentration - - Weight 78.8 kg (173 lb 12.8 oz) 06/11/2024 9:24 AM EST Height 160 cm (5' 2.99") 06/11/2024 9:24 AM EST Body Mass Index 30.8 06/11/2024 9:24 AM EST documented in this encounter Functional Status * Are you [...] 12/24/2022 6:50 PM Enid Jo RN documented as of this encounter Mental Status * Because of a physical, mental, or emotional condition, do you have serious difficulty concentrating, remembering, or making decisions? (5 years old or older) Answer Entry Date Author No 12/24/2022 6:50 PM Enid Jo RN documented in this encounter Progress Notes * Judd Nazario Kaur, DO - 06/11/2024 9:28 AM EST Subjective Luis M Tirado is a 84 year old male. Chief Complaint Patient presents with Cough Congestion Text in this note was generated using an ambient documentation service. I discussed the use of a device to record and summarize our discussion today. All persons present during the encounter consented to its use. HPI: Patient presents for cough, congestion. History of Present Illness The patient, with a history of chronic sinus symptoms, reports that his current episode has been ongoing since August. He denies fever or chills and has not had a cold in about fifteen years. He haspreviously seen an ENT specialist who found no abnormalities on examination. The patient has a history of allergies and was told by a previous acute care registered nurse that he was allergic to almost everything. He notes that his symptoms worsen with yard work and improve with exposure to salt air, suggesting an environmental component to his symptoms. He currently manages his symptoms with daily Zyrtec, sometimes taking it twice a day. Sinus drainage has been worse over the best 10 days. Increased green/thick discharge above baseline. No fever chills. No shortness of breath or wheezing. 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 CLL (chronic lymphocytic leukemia) ([facility]) Hx of nonmelanoma skin cancer Hx of actinic keratosis Nonrheumatic aortic valve stenosis Ascending aorta dilatation ([facility]) Benign hypertension with stage 3a chronic kidney disease ([facility]) Chronic kidney disease, stage 3a ([facility]) PSVT (paroxysmal supraventricular tachycardia) ([facility]) History of 2019 novel coronavirus disease (COVID-19) ILD (interstitial lung disease) ([facility]) COPD (chronic obstructive pulmonary disease) with chronic bronchitis ([facility]) COPD, group B, by GOLD 2017 classification ([facility]) 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 As needed. About every 2 days.. 30 Tab aspirin 81 MG chewable tablet Take 1 Tablet by mouth in the morning. Takes every other day . 100 Tab 5 Triamcinolone Acetonide 55 MCG/ACT Nasal Aerosol Administer into nostril 2 Sprays in the morning AND 2 Sprays before bedtime. 16.9 mL 12 ProAir HFA 108 (90 Base) MCG/ACT Inhalation Aerosol Solution Inhale by mouth 2 Puffs every 4 hours as needed for Wheezing. 18 g 5 Spacer/Aero-Holding Chambers Device Use with inhaler as directed . 1 Each 0 oxyCODONE-Acetaminophen 5-325 MG Oral Tablet (Percocet) Take 1 Tablet by mouth every 6 hours as needed for Pain, Breakthrough. 1 TABLET EVERY 6 HOURS NEEDED 60 Tablet 0 Azelastine HCl 0.1 % Nasal Solution (Astelin) Administer 1 Gal[place]ia into nostril in the morning and 1 [place] before bedtime. 30 mL 12 Azithromycin 500 MG Oral Tablet (Zithromax) Take 1 tablet 30-60 mg prior to any dental work. 1 Tablet 4 Allopurinol 100 MG Oral Tablet (Zyloprim) Take 1 Tablet by mouth in the morning. 30 Tablet 11 Colchicine 0.6 MG Oral Tablet Take 1 Tablet by mouth in the morning. 30 Tablet 5 Triamcinolone Acetonide 0.1 % External Ointment (Aristocort) APPLY TOPICALLY TO AFFECTED AREA TWICEA DAY FOR 14 DAYS 15 g 0 Doxycycline Monohydrate 100 MG Oral Capsule Take 1 Capsule by mouth in the morning and 1 Capsule before bedtime. 60 Capsule 5 Trelegy Ellipta 200-62.5-25 MCG/ACT Aerosol Powder Breath Activated (Dbobpaqferi-Pxemhpvyfqhz-Kqgvjenisx) Inhale 1 Puff by mouth in the morning. 60 Blister Dosing Unit 3 Metoprolol Succinate ER 25 MG Oral Tablet Extended Release 24 Hour (toPROL XL) TAKE 1 TABLET BY MOUTH TWICE DAILY every morning and before bedtime 180 Tablet 1 Fexofenadine HCl 180 MG Oral Tablet (Yolanda) Take 1 Tablet by mouth in the morning. Montelukast Sodium 10 MG Oral Tablet (Singulair) Take 1 Tablet by mouth in the morning. 30 Tablet 5 Losartan Potassium 50 MG Oral Tablet (Cozaar) TAKE 1 TABLET BY MOUTH EVERY MORNING 30 Tablet 5 Chlorambucil 2 MG Oral Tablet (Leukeran) Take 1 Tablet by mouth in the morning. Take medication on an empty stomach.. 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 Mri 01/14/2007 Mri done at [facility] Chronic kidney disease, stage 3a (HCC) 01/16/2021 Per CKD protocol Chronic lymphocytic leukemia (HCC) 02/25/2005 Complete heart block (HCC) 01/06/2023 Dyslipidemia, goal to be determined History of 2019 novel coronavirus disease (COVID-19) 05/07/2022 HTN, goal to be determined Hypertension, chronic,unspecified HYPERCALCEMIA Hyperparathyroidism ILD (interstitial lung disease) (HCC) Other chronic sinusitis 03/27/2005 Pneumonia Primary osteoarthritis involving multiple joints Pulmonary arterial hypertension (HCC) SLEEP APNEA NOS 06/01/2001 Past Surgical History: Procedure Laterality Date COLONOSCOPY 09/10/2004 Normal repeat 3-5 years COLONOSCOPY, DIAGNOSTIC (RECTUM) 05/28/2010 normal colon exam repeat in 5 years COLONOSCOPY, DIAGNOSTIC (RECTUM) 09/27/2014 normal/[facility] COLONOSCOPY, SURGICAL 02/2000 cloacogenic polyp: removed by Dr Zuñiga CORONARY ANGIOGRAPHY W/LEFT HEART CATH Right 11/28/2022 CORONARY ANGIOGRAPHY W/LEFT HEART CATH performed by Adolfo Pierce DO at [facility] EXPLORE PARATHYROID GLANDS 1998 Parathyroidectomy FRACTURE NOS 2001 Fractures L leg/bone graft INJECTION OF EYE DRUG Right 07/09/2016 # 1 Eylea OD, INJECTION OF EYE DRUG Right 09/19/2016 # 2 Eylea OD, INJECTION OF EYE DRUG Right 11/07/2016 # 1 Triesence OD, Dr. Jc INSERT/REPLACE PACEMAKER,ATRIAL/VENTRICULAR Left 12/26/2022 NEW DDD PACEMAKER IMPLANT performed by Keily Kelley IV, MD at [facility] LUMBAR SPINE FUSION, POST INTERBODY Dr. Estrada lower back MISCELLANEOUS ORDER ([facility] ONLY) Right 07/09/2016 Eylea OD Consent signed, MISCELLANEOUS ORDER ([facility] ONLY) Right 11/07/2016 Triesence OD Consent Signed, [facility]. Jc [facility] [place]; FACE, HANDS, FEET, NERVE "one left side of throat and two on my head" OTHER 06/2005 Dr. Reeder; nasal surgery OTHER 11/2006 left shoulder arthroscopy OTHER (INFORMATION) ACT 112 SIGNED 12/04/22 DR. JC REMOVAL OF APPENDIX 05/29/2010 Appendectomy- [facility] 05/29/2010 REPLACE AORTIC VALVE, PERCUTANEOUS FEMORAL N/A 12/24/2022 REPLACE AORTIC VALVE, PERCUTANEOUS FEMORAL performed by Jesse Tanner MD at [facility] REPLACE AORTIC VALVE, PERCUTANEOUS FEMORAL N/A 12/24/2022 REPLACE AORTIC VALVE, PERCUTANEOUS FEMORAL performed by Alin Be MD at [facility] TREAT LOCALIZED RETINA LESION Right 12/12/2016 Focal Laser procedure of the RIGHT eye; Dr. Jc Review of patient's allergies indicates: Allergen Reactions Heparin ?Possible HIT Type 1, following TAVR 12/2022 Penicillins Hives Other reaction(s): Hives Levofloxacin Itchy rash Zocor [Simvastatin] Liver complications (Please comment) Transaminitis Family History Problem Relation Name Age of Onset Heart Disorder Mother age 57 Hypertension Mother GI problems Father Ulcer, hemorrhage; age 61 Hypertension Father Heart disease Sister Cancer Sister Unknown type Heart disease Sister Cataracts Sister No Known Problems Sister No Known Problems Sister No Known Problems Sister Heart disease Brother Diabetes Brother Stroke Brother Cataracts Brother Lung Disorder Brother On oxygen s/p COVID Eye Problems None patient denies hx Glaucoma, retinal detachment or blindness Family Status Relation Status Mo at age 57 NV Fa at age 61 Alcoholism, ulcer Sis at age 71 [place] Sis Sis Sis Alive Sis Alive Sis Alive Sis Alive Bro at age 67 Stroke Bro Heart prob Bro Alive Bro Alive HTN [place] Alive Son Alive NONE (Not Specified) Social History Socioeconomic History Marital status: Spouse name: Not on file Number of children: Not on file Years of education: Not on file Highest education level: Not on file Occupational History 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 No mold. Social Needs Financial Resource Strain: Not on file Food Insecurity: No Food Insecurity (11/07/2022) Hunger Vital Sign Worried About Running Out of Food in the Last Year: Never true Ran Out of Food in the Last Year: Never true Transportation Needs: Not on file Social Connections: Unknown (01/20/2024) Social Connections How often do you feel lonely or isolated from those around you? (Adult - for ages 18 years and over): Not on file Housing Stability: Not on file Review of Systems Constitutional: Negative for chills, fatigue and fever. HENT: Positive for congestion, postnasal drip, sinus pressure and sinus pain. Negative for sore throat and trouble swallowing. Eyes: Negative for photophobia and pain. Respiratory: Positive for cough. Negative for shortness of breath and wheezing. Cardiovascular: Negative for chest pain and palpitations. Gastrointestinal: Negative for abdominal distention, abdominal pain, nausea and vomiting. Genitourinary: Negative for dysuria and frequency. Musculoskeletal: Negative for back pain and neck stiffness. Skin: Negative for pallor. Neurological: Negative for dizziness, light-headedness and headaches. Psychiatric/Behavioral: Negative for sleep disturbance. The patient is not nervous/anxious. Objective BP 122/74 (BP Site: Left Arm, BP Position: Sitting, BP Cuff Size: Regular) | Pulse 66 | Temp 36.1 C (96.9 F) (Tympanic) | Ht 1.6 m (5' 2.99") | Wt 78.8 kg (173 lb 12.8 oz) | SpO2 99% | BMI 30.80 kg/m | BSA 1.87 m Physical Exam Constitutional: General: He is not in acute distress. Appearance: He is not ill-appearing. HENT: Head: Normocephalic and atraumatic. Right Ear: Tympanic membrane, ear canal and external ear normal. Left Ear: Tympanic membrane, ear canal and external ear normal. Nose: Rhinorrhea present. No congestion. Mouth/Throat: Mouth: Mucous membranes are dry. Pharynx: Oropharynx is clear. Comments: Increased thick PND Eyes: Extraocular Movements: Extraocular movements intact. Conjunctiva/sclera: Conjunctivae normal. Pupils: Pupils are equal, round, and reactive to light. Neck: Vascular: No carotid bruit. Cardiovascular: Rate and Rhythm: Normal rate and regular rhythm. Pulses: Normal pulses. Heart sounds: Normal heart sounds. No murmur heard. No friction rub. No gallop. Pulmonary: Effort: Pulmonary effort is normal. Breath sounds: Normal breath sounds. No wheezing, rhonchi or rales. Abdominal: General: Bowel sounds are normal. There is no distension. Palpations: Abdomen is soft. There is no mass. Tenderness: There is no abdominal tenderness. Musculoskeletal: General: No swelling or tenderness. Normal range of motion. Cervical back: Normal range of motion and neck supple. Right lower leg: No edema. Left lower leg: No edema. Skin: General: Skin is warm and dry. Coloration: Skin is not jaundiced. Findings: No rash. Neurological: General: No focal deficit present. Mental Status: He is oriented to person, place, and time. Cranial Nerves: No cranial nerve deficit. Sensory: No sensory deficit. Motor: No weakness. Psychiatric: Mood and Affect: Mood normal. Behavior: Behavior normal. ASSESSMENT/PLAN: Environmental allergies (Primary) - ALLERGY REFERRAL OP HTN, goal below 140/90 Post-nasal drainage Allergic rhinitis, unspecified seasonality, unspecified trigger - ALLERGY REFERRAL OP ILD (interstitial lung disease) ([facility]) COPD, group B, by GOLD 2017 classification ([facility]) Acute recurrent maxillary sinusitis - Azithromycin 500 MG Oral Tablet (Zithromax); Take 1 tablet 30-60 mg prior to any dental work. - methylPREDNISolone 4 MG Oral Tablet Therapy Pack (Medrol Dosepack); follow package directions Plan: Assessment & Plan Environmental Allergies/Chronic Rhinitis and Sinusitis Longstanding history of sinus issues, likely secondary to environmental allergies. No recent feversor chills. Currently taking Zyrtec daily, sometimes twice daily. Noted improvement in symptoms withexposure to salt air. -Refer to acute care registered nurse for updated allergy evaluation to better manage underlying environmental allergies. Acute Maxillary Sinusitis -do believe he has developed an acute on chronic sinusitis. Will treat with azithromycin 250 mg Z-Javy. Take until completed. Medrol 4 mg Dosepak. Take with food. Counseled on common side effects which to monitor Follow Up: Return if symptoms worsen or fail to improve, for Return with Physician. | For: Return with Physician | Check-out note: Follow up next routine I spent a total of 30-39 minutes (exact time 35 mins) on the date of service in preparation, delivery, and documentation of the care provided to Luis M Tirado excluding any time spent in the performance of separately billed services or time spent by another provider/QHP. Nazario Whaley DO documented in this encounter Nursing Notes * Susanne Alves CMA - 06/11/2024 9:18 AM EST Patient presents today with complaints of productive cough. He describes the mucus production with cough as green and chunky. He is also having sinus congestion with PND, states he feels that the drainage is running into his chest. This had been ongoing x 10 days. He denies any fever or chills, no body aches. documented in this encounter Plan of Treatment Upcoming Encounters Date Type Department Care Team (Late st Contact Info) Description 06/30/2024 9:00 AM EST Pharmacy Pharmacy Hematology Oncology [facility] [address] [place] [address] Gm, [facility] Hem/Onc [address] [place] [address] 09/06/2024 2:30 PM EST Office Visit Hematology/Oncology [facility] [address] [facility] [place] [id number] Lucien Jamil MD [address] [facility] [place] [address] 10/04/2024 9:00 AM EST Office Visit Allergy/Immunology [facility] [address] [place] [address] Ric Cherry MD [address] [facility] [place] [address] 11/22/2024 11:00 AM EDT Office Visit Cardiology, [facility] [address] [facility] [place] [address] Cuauhtemoc Jo, [address] [facility] [place] [address] 11/30/2024 12:00 PM EDT Office Visit Pulmonary Medicine, [facility] [address] [facility] [place] [id number] Phillip Hernandez MD [address] [place] [address] 12/03/2024 11:15 AM EDT Office Visit Otolaryngology [facility] [address] [facility] [place] [address] Susanne Thrasher MD [address] [place] [address] Scheduled Referrals Name Type Priority Associated Diagnoses Orde r Schedule ALLERGY REFERRAL OP Referral Within 10 da ys (routine) Environmental allergies Allergic rhinitis, unspecified seasonality, unspecified trigger Ordered: 06/11/2024 Health Maintenance Due Date Last Done Comments COVID-19 Vaccine (#1) 02/07/1945 Zoster Vaccines (1 of 2) 02/07/1959 Adult Wellness Visit 02/07/2006 CKD PHOS USE SMARTSET 22460 11/29/202311/03, 11/07/2022, 10/16/2021, Additional history exists Influenza Vaccine (FLU shot) (#1) 2024 Albumin/Creatinine Ratio 05/22/2024 023, 05/09/2022, 09/17/1999 Depression Screening 05/22/2024 05/22/2023 GFR 11/29/2024 05/31/2024, 10/0 11/2023, 04/22/2024, Additional history exists DTap/Tdap Vaccines (4 - Td or Tdap) 12/01/2024 12/01/2014, 12/01/2014, 12/01/2014 CKD HGB USE SMARTSET 38165 05/31/202505/31, 05/31/2024, 05/07/2024, Additional history exists O2 ASSESSMENT COMPLETED IN PAST YEAR FOR COPD 06/11/2025 06/11/2024 Pneumococcal Vaccine: 65+ Years Completed 07/01/2017, 06/26/2016, [...] this encounter Medical Devices Implanted Type Area Cotton Weigher Operator Device Identifier Shelf Expiration Date Model / Serial / Lot Valve Korey 3 Ultra 26mm - [id number] Implanted:Qty: 1 on 12/24/2022 by Jesse Tanner MD at [facility] [employer] [id number] 07/03/2023 [id number] / / Lead Pace Selectsecure 3830-69 - [id number] Implanted:Qty: 1 on 12/26/2022 by Keily Kelley IV, MD at [facility] [employer] : CRM [id number] 11/19/2024 [id number] / [id number] / [id number] Lead Novus Bipolar 52cm - [id number] Implanted:Qty: 1 on 12/26/2022 by Keily Kelley IV, MD at [facility] [employer] : CRM [id number] 10/10/2024 [id number] / [id number] / [id number] Pacemaker Parul Xt Dr Mri [facility] - [id number] Implanted:Qty: 1 on 12/26/2022 by Keily Kelley IV, MD at [facility] [employer] [id number] 05/17/2024 [id number] / [id number] / [id number] documented as of this encounter Visit Diagnoses Diagnosis Environmental allergies- Primary Other allergy, other than to medicinal agents HTN, goal below 140/90 Unspecified essential hypertension Post-nasal drainage Unspecified sinusitis (chronic) Allergic rhinitis, unspecified seasonality, unspecified trigger ILD (interstitial lung disease) ([facility]) Postinflammatory pulmonary fibrosis COPD, group B, by GOLD 2017 classification (HCC) Acute recurrent maxillary sinusitis Acute maxillary sinusitis documented in this encounter Advance Directives * Full Code (Latest Code Status on File) Date Activated Date Inactivated Comments 12/24/2022 11:13 AM 12/27/2022 10:05 PM This order reflects the patients wishes and were consensually agreed upon. Question Answer Comments Discussion of Advance Directives occurred with: Patient Care Teams Refrigerator Cabinetmaker Relationship Specialty Start Date End Date Vincent Slaughter MD [address] [place] [address] PCP - General Internal Medicine 05/22/21 documented as of this encounter
--- OUTSIDE RECORDS SUMMARY | 2024-08-26 09:39 | External Medical Summary ---
Author Name Unknown Address Unknown Organization K09:[facility] [place] [address] Laboratory Report Ordering Provider Test Date Status KAMI CHPAMAN 06/23/2024 09:10:48 Final 2 times a week for 3-6 weeks , then every 1-2 weeks. Observation Date Value Abnormality Reference (Units ) Status WBC, Total 06/23/2024 09:10:48 29.87 Above high normal 4 .00-10.80 (K/uL) Final RBC 06/23/2024 09:10:48 3.75 4.50-5.25 (M/uL) Final Hemoglobin 06/23/2024 09:10:48 11.9 Below low normal 14 .0-16.8 (g/dL) Final HCT 06/23/2024 09:10:48 37.8 Below low normal 40. 0-48.4 (%) Final MCV 06/23/2024 09:10:48 100.8 82.0-99.5 (fL) Final MCH 06/23/2024 09:10:48 31.7 27.0-34.0 (pg) Final MCHC 06/23/2024 09:10:48 31.5 32.0-36.0 (g/dL) Final RDW 06/23/2024 09:10:48 14.5 11.5-15.5 (%) Final Platelets 06/23/2024 09:10:48 97 Below low normal 140 -400 (K/uL) Final MPV 06/23/2024 09:10:48 9.0 6.6-11.1 ( fL) Final Performing Location [place] [address]
--- OUTSIDE RECORDS SUMMARY | 2024-08-26 09:39 | External Medical Summary ---
Author Name Unknown Address Unknown Organization K09:[facility] [address] [place] [address] Laboratory Report Ordering Provider Test Date Status KAMI CHAPMAN 06/23/2024 09:10:48 Final Observation Date Value Abnormality Reference (Units ) Status BUN 06/23/2024 09:10:48 22 Above high normal 6-20 (mg/dL) Final Creatinine 06/23/2024 09:10:48 1.4 Above high normal 0.6-1.2 (mg/dL) Final Glomerular filtration rate/1.73 sq M.predicted [Volume Rate/Area] in Serum, Plasma or Blood by Creatinine-based formula (CKD-EPI) 06/23/2024 09:10:48 50 Below low normal >=60 (mL/min) Final eGFR is calculated based on the CKD-EPI 2020 equation. Sodium 06/23/2024 09:10:48 144 135-146 (m mol/L) Final Potassium 06/23/2024 09:10:48 3.9 3.5-5.1 (m mol/L) Final Cl 06/23/2024 09:10:48 107 98-107 (mm ol/L) Final CO2 06/23/2024 09:10:48 27 22-32 (mmo l/L) Final Anion gap 06/23/2024 09:10:48 10 7-15 (mmol /L) Final Glucose 06/23/2024 09:10:48 106 70-120 (mg /dL) Final Albumin 06/23/2024 09:10:48 4.4 3.8-5.0 (g /dL) Final AST (Aspartate aminotransferase) 06/23/2024 09:10:48 18 10-50 (U/L) Final Alk Phos 06/23/2024 09:10:48 71 35-130 (U/ L) Final Bilirubin, Total 06/23/2024 09:10:48 0.5 <=1 .2 (mg/dL) Final Calcium 06/23/2024 09:10:48 9.3 8.4-10.2 ( mg/dL) Final Protein 06/23/2024 09:10:48 6.3 6.0-8.3 (g /dL) Final ALT (Alanine aminotransferase) 06/23/2024 09:10:48 10 10-50 (U/L) Final Performing Location [facility] [address] [place] [address]
--- OUTSIDE RECORDS SUMMARY | 2024-08-26 09:39 | External Medical Summary ---
Author Name Unknown Address Unknown Organization K09:[facility] [place] [place] [address] Laboratory Report Ordering Provider Test Date Status KAMI CHAPMAN 06/23/2024 09:10:48 Final 2 times a week for 3-6 weeks , then every 1-2 weeks. Observation Date Value Abnormality Reference (Units ) Status SYNC LEUKOCYTES IN BLOOD BY AUTOMATED COUNT 06/23/2024 09:10:48 29.87 Above high normal 4.00-10.80 (K/uL) Final Neutrophils/100 leukocytes in Blood by Manual count 06/23/2024 09:10:48 10.0 Below low normal 40.0-75.0 (%) Final Lymphocytes/100 leukocytes in Blood by Manual count 06/23/2024 09:10:48 89.0 Above high normal 18.0-42.0 (%) Final Monocytes/100 leukocytes in Blood by Manual count 06/23/2024 09:10:48 1.0 1.0-11.0 (%) Final Neutrophils [#/volume] in Blood by Manual count 06/23/2024 09:10:48 2.99 1.80-7.70 (K/uL) Final Lymphocytes [#/volume] in Blood by Manual count 06/23/2024 09:10:48 26.58 Above high normal 1.00-4.80 (K/uL) Final Monocytes [#/volume] in Blood by Manual count 06/23/2024 09:10:48 0.30 0.00-1.10 (K/uL) Final Nucleated erythrocytes/100 leukocytes [Ratio] in Blood by Automated count 06/23/2024 09:10:48 Final Variant lymphocytes [Presence] in Blood by Light microscopy 06/23/2024 09:10:48 Present Abnormal None Seen Final Smudge cells [Presence] in Blood by Light microscopy 06/23/2024 09:10:48 Present Abnormal None Seen Final Performing Location [facility] [place] [address]
--- OUTSIDE RECORDS SUMMARY | 2024-08-26 09:39 | External Medical Summary ---
Author Name Unknown Address Unknown Organization K09:[facility] [place] [address] Laboratory Report Ordering Provider Test Date Status KAMI CHAPMAN 07/07/2024 13:35:29 Final 2 times a week for 3-6 weeks , then every 1-2 weeks. Observation Date Value Abnormality Reference (Units ) Status WBC, Total 07/07/2024 13:35:29 25.44 Above high normal 4 .00-10.80 (K/uL) Final RBC 07/07/2024 13:35:29 3.74 4.50-5.25 (M/uL) Final Hemoglobin 07/07/2024 13:35:29 11.9 Below low normal 14 .0-16.8 (g/dL) Final HCT 07/07/2024 13:35:29 37.1 Below low normal 40. 0-48.4 (%) Final MCV 07/07/2024 13:35:29 99.2 82.0-99.5 (fL) Final MCH 07/07/2024 13:35:29 31.8 27.0-34.0 (pg) Final MCHC 07/07/2024 13:35:29 32.1 32.0-36.0 (g/dL) Final RDW 07/07/2024 13:35:29 14.1 11.5-15.5 (%) Final Platelets 07/07/2024 13:35:29 98 Below low normal 140 -400 (K/uL) Final MPV 07/07/2024 13:35:29 9.7 6.6-11.1 ( fL) Final Performing Location [facility] [place] [address]
--- OUTSIDE RECORDS SUMMARY | 2024-08-26 09:39 | External Medical Summary | Summary of Care ---
Author Name Unknown Organization [facility] Address [address] [place] [address] Phone [phone] Care Team Providers Care Band Builder Name Role Phone Vincent Slaughter MD Primary Care Provider + Reason for Visit * Reason Comments eRx-Medication Refill Encounter Details Date Type Department Care Team (Late st Contact Info) Description 06/17/2024 Refill General Internal Medicine [facility] [address] [facility] [place] [id number] Vicnent Slaughter MD [address] [place] [address] Idiopathic chronic gout of multiple sites without tophus Allergies Active Allergy Reactions Criticality Noted Date Comments 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 As needed. About every 2 days.. 30 Tab 11/26/19 17 Active aspirin 81 MG chewable tablet Take 1 Tablet by mouth in the morning. Takes every other day . 100 Tab 5 07/08/20 18 Active Triamcinolone Acetonide 55 MCG/ACT Nasal Aerosol Administer into nostril 2 Sprays in the morning AND 2 Sprays before bedtime. 16.9 mL 12 11/02/19 22 Active ProAir HFA 108 (90 Base) MCG/ACT Inhalation Aerosol SolutionIndicati ons:COVID-19 virus infection Inhale by mouth 2 Puffs every 4 hours as needed for Wheezing. 18 g 5 01/17/20 22 Active Spacer/Aero-Hold ing Chambers DeviceIndication s:Pneumonia due to COVID-19 virus Use with inhaler as directed . 1 Each 03/04/20 22 Active oxyCODONE-Acetam inophen 5-325 MG Oral Tablet (Percocet)Indica tions:Persistent headaches Take 1 Tablet by mouth every 6 hours as needed for Pain, Breakthrough. 1 TABLET EVERY 6 HOURS NEEDED 60 Tablet 11/08/19 23 Active Azelastine HCl 0.1 % Nasal Solution (Astelin) Administer 1 Robbins into nostril in the morning and 1 Robbins before bedtime. 30 mL 12 11/23/19 23 Active Colchicine 0.6 MG Oral TabletIndication s:Idiopathic chronic gout of multiple sites without tophus Take 1 Tablet by mouth in the morning. 30 Tablet 5 05/23/20 23 Active Triamcinolone Acetonide 0.1 % External Ointment (Aristocort) APPLY TOPICALLY TO AFFECTED AREA TWICE A DAY FOR 14 DAYS 15 g 08/13/19 24 Active Doxycycline Monohydrate 100 MG Oral Capsule Take 1 Capsule by mouth in the morning and 1 Capsule before bedtime. 60 Capsule 5 09/10/19 24 Active Trelegy Ellipta 200-62.5-25 MCG/ACT Aerosol Powder Breath Activated (Fluticasone-Ume clidinium-Vilant krista)Indications :Bronchiectasis without complication (HCC),Chronic bronchitis, unspecified chronic bronchitis type (HCC),COPD (chronic obstructive pulmonary disease) with chronic bronchitis (HCC),ILD (interstitial lung disease) (HCC) Inhale 1 Puff by mouth in the morning. 60 Blister Dosing Unit 3 03/01/20 24 Active Metoprolol Succinate ER 25 MG Oral Tablet Extended Release 24 Hour (toPROL XL)Indications:A scending aorta dilatation (HCC) TAKE 1 TABLET BY MOUTH TWICE DAILY every morning and before bedtime 180 Tablet 1 04/10/20 24 Active Fexofenadine HCl 180 MG Oral Tablet (Yolanda) Take 1 Tablet by mouth in the morning. Active Montelukast Sodium 10 MG Oral Tablet (Singulair)Indic ations:Post-nasa l drainage,Allergi c rhinitis, unspecified seasonality, unspecified trigger Take 1 Tablet by mouth in the morning. 30 Tablet 5 05/07/20 24 Active Losartan Potassium 50 MG Oral Tablet (Cozaar)Indicati ons:HTN, goal below 140/90 TAKE 1 TABLET BY MOUTH EVERY MORNING 30 Tablet 5 05/26/20 24 Active Chlorambucil 2 MG Oral Tablet (Leukeran)Indica tions:CLL (chronic lymphocytic leukemia) (HCC) Take 1 Tablet by mouth in the morning. Take medication on an empty stomach.. 30 Tablet 5 4 11:41 AM EST 06/02/20 24 Active methylPREDNISolo ne 4 MG Oral Tablet Therapy Pack (Medrol Dosepack)Indicat ions:Acute recurrent maxillary sinusitis follow package directions 21 Tablet 06/11/20 24 Active Allopurinol 100 MG Oral Tablet (Zyloprim)Indica tions:Idiopathic chronic gout of multiple sites without tophus Take 1 Tablet by mouth in the morning. 30 Tablet 11 06/18/20 24 Active Allopurinol 100 MG Oral Tablet (Zyloprim)Indica tions:Idiopathic chronic gout of multiple sites without tophus Take 1 Tablet by mouth in the morning. 30 Tablet 11 05/23/20 23 024 Discontinued Hospital, Clinic, or Other Facility Administered Medication Ordered Dose Route Frequency Start Date End Date Status Albuterol Sulfate (Proventil) (2.5 MG/3ML) 0.083% inhalation solution 2.5 mgIndications:ILD (interstitial lung disease) ([facility]),Hypersensitivity pneumonitis ([facility]),COPD, group B, by GOLD 2017 classification ([facility]),Dyspnea on exertion,Chronic cough 2.5 mg NEBULIZER ONCE PRN 01/07/2024 01/06/2025 Ac tive documented as of this encounter (statuses as of 06/18/2024) Active Problems Problem Noted Date Diagnosed Date [...] hemisphere infarct. Mri 01/14/2007 Mri done at [facility] Statin intolerance 07/27/2007 Overview (07/27/2007): Hepatitis with Zocor Other sleep apnea 06/01/2001 documented as of this encounter (statuses as of 06/18/2024) Resolved Problems Problem Noted Date Diagnosed Date [...] hemisphere infarct. Mri 01/14/2007 Mri done at [facility] Cerebrovascular event, ill-d efined, within last 8 weeks 02/23/2007 11/17/2008 Overview (11/17/2008): Modified per CVA protocol #8 Chronic rhinitis 09/16/2005 12/31/2017 Deviated nasal septum 03/27/20052017 Acquired deformity of nose 03/27/2005 1 08/31/2016 NASAL & SINUS DIS NEC 03/27/20052016 Other chronic sinusitis 03/27/2005 0808/2018 CHRONIC LYMPHOID LEUKEMIA [facility] [...] as of this encounter (statuses as of 06/18/2024) Immunizations Name Administration Dates Next Due Pneumococcal [...] encounter Miscellaneous Notes * Telephone Encounter - Carol Pinto RPh - 06/18/2024 5:45 PM ESTSigned Prescriptions: Disp Refills Allopurinol 100 MG Oral Tablet (Zyloprim) 30 Tab*11 Sig: Take 1Tablet by mouth in the morning.Authorizing Provider: VINCENT SLAUGHTER User: CAROL PINTO documented in this encounter Plan of Treatment Upcoming Encounters Date Type Department Care Team (Late st Contact Info) Description 06/30/2024 9:00 AM EST Pharmacy Pharmacy Hematology Oncology [facility] [address] [place] [address] [facility] [address] [facility] [address] 09/06/2024 2:30 PM EST Office Visit Hematology/Oncology [facility] [address] [place] [phone] Lucien Jamil MD [address] [place] [address] 10/04/2024 9:00 AM EST Office Visit Allergy/Immunology [facility] [address] [place] [address] Ric Cherry MD [address] [facility] [place] [address] 11/22/2024 11:00 AM EDT Office Visit Cardiology, [facility] [address] [facility] [place] [address] Cuauhtemoc Jo DO [address] [facility] [place] [address] 11/30/2024 12:00 PM EDT Office Visit Pulmonary Medicine, [facility] [address] [facility] [place] [address] Phillip [facility] [address] [facility] [address] 12/03/2024 11:15 AM EDT Office Visit Otolaryngology [facility] [address] [facility] [place] [address] Susanne Thrasher MD [address] [place] [address] Health Maintenance Due Date Last Done Comments COVID-19 Vaccine (#1) 02/07/1945 Zoster Vaccines (1 of 2) 02/07/1959 Adult Wellness Visit 02/07/2006 CKD PHOS USE SMARTSET 48238 11/29/2023 04/2 02/2023, 11/07/2022, 10/16/2021, Additional history exists Influenza Vaccine (FLU shot) (#1) 2024 Albumin/Creatinine Ratio 05/22/2024 023, 05/09/2022, 09/17/1999 Depression Screening 05/22/2024 05/22/2023 GFR 11/29/2024 05/31/2024, 10/11/2023, 04/22/2024, Additional history exists DTap/Tdap Vaccines (4 - Td or Tdap) 12/01/2024 12/01/2014, 12/01/2014, 12/01/2014 CKD HGB USE SMARTSET 10500 05/31/202505/31, 05/31/2024, 05/07/2024, Additional history exists O2 [...] this encounter Medical Devices Implanted Type Area Pre Parole Counseling Aide Device Identifier Shelf Expiration Date Model / Serial / Lot Valve Korey 3 Ultra 26mm - [id number] Implanted:Qty: 1 on 12/24/2022 by Jesse Tanner MD at [facility] [employer] [id number] 07/03/2023 [id number] / / Lead Pace Selectsecure 3830-69 - [id number] Implanted:Qty: 1 on 12/26/2022 by Keily Kelley IV, MD at [facility] [employer] : CRM [id number] 11/19/2024 [id number] / [id number] / [id number] Lead Novus Bipolar 52cm - [id number] Implanted:Qty: 1 on 12/26/2022 by Keily Kelley IV, MD at [facility] [employer] : CRM [id number] 10/10/2024 [id number] / [id number] / [id number] Pacemaker Parul Xt Dr Orosco [facility] - [id number] Implanted:Qty: 1 on 12/26/2022 by Keily Kelley IV, MD at [facility] [employer] [facility] [id number] 05/17/2024 [id number] / [id number] / [id number] documented as of this encounter Visit Diagnoses Diagnosis Idiopathic chronic gout of multiple sites without tophus Chronic gouty arthropathy without mention of tophus (tophi) documented in this encounter Advance Directives * Full Code (Latest Code Status on File) Date Activated Date Inactivated Comments 12/24/2022 11:13 AM 12/27/2022 10:05 PM This order reflects the patients wishes and were consensually agreed upon. Question Answer Comments Discussion of Advance Directives occurred with: Patient Care Teams Band Builder Relationship Specialty Start Date End Date Vincent Slaughter MD [address] [facility] [place], [place] [phone] PCP - General Internal Medicine 05/22/21 documented as of this encounter
--- OUTSIDE RECORDS SUMMARY | 2024-08-26 09:39 | External Medical Summary ---
Author Name Unknown Address Unknown Organization K09:[facility] [address] [place] [address] Laboratory Report Ordering Provider Test Date Status CHAPMAN,KAMI 07/07/2024 13:35:29 Final 2 times a week for 3-6 weeks , then every 1-2 weeks. Observation Date Value Abnormality Reference (Units ) Status SYNC LEUKOCYTES IN BLOOD BY AUTOMATED COUNT 07/07/2024 13:35:29 25.44 Above high normal 4.00-10.80 (K/uL) Final Neutrophils/100 leukocytes in Blood by Manual count 07/07/2024 13:35:29 16.0 Below low normal 40.0-75.0 (%) Final Lymphocytes/100 leukocytes in Blood by Manual count 07/07/2024 13:35:29 82.0 Above high normal 18.0-42.0 (%) Final Monocytes/100 leukocytes in Blood by Manual count 07/07/2024 13:35:29 1.0 1.0-11.0 (%) Final Metamyelocytes/100 leukocytes in Blood by Manual count 07/07/2024 13:35:29 1.0 Above high normal <=0.0 (%) Final Neutrophils [#/volume] in Blood by Manual count 07/07/2024 13:35:29 4.07 1.80-7.70 (K/uL) Final Lymphocytes [#/volume] in Blood by Manual count 07/07/2024 13:35:29 20.86 Above high normal 1.00-4.80 (K/uL) Final Monocytes [#/volume] in Blood by Manual count 07/07/2024 13:35:29 0.25 0.00-1.10 (K/uL) Final Metamyelocytes [#/volume] in Blood by Manual count 07/07/2024 13:35:29 0.25 Above high normal <=0.00 (K/uL) Final Nucleated erythrocytes/100 leukocytes [Ratio] in Blood by Automated count 07/07/2024 13:35:29 Final Variant lymphocytes [Presence] in Blood by Light microscopy 07/07/2024 13:35:29 Present Abnormal None Seen Final Smudge cells [Presence] in Blood by Light microscopy 07/07/2024 13:35:29 Present Abnormal None Seen Final Performing Location [facility] [address] [place] [address]
--- OUTSIDE RECORDS SUMMARY | 2024-08-26 09:39 | External Medical Summary | Summary of Care ---
Author Name Unknown Organization [facility] Address [address] [place] [address] Phone [phone] Care Team Providers Care Customer Account Representative Name Role Phone Vincent Slaughter MD Primary Care Provider + Reason for Visit * Reason Comments Outpatient Testing Encounter Details Date Type Department Care Team (Late st Contact Info) Description 06/23/2024 9:10 AM EST Laboratory Laboratory Scenery [facility] [address] [place] [address] [facility] [address] [place] [address] CLL (chronic lymphocytic leukemia) (HCC) Allergies Active Allergy Reactions Criticality Noted Date Comments 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 30 mL 12 3 Active [...] 5 06/08/2024 11:41 AM EST 4 Active methylPREDNISolon e 4 MG Oral Tablet Therapy Pack (Medrol Dosepack)Indicati ons:Acute recurrent maxillary sinusitis follow package directions 21 Tablet 4 Active Allopurinol 100 MG Oral Tablet (Zyloprim)Indicat ions:Idiopathic chronic gout of multiple sites without tophus Take 1 Tablet by mouth in the morning. 30 Tablet 11 4 Active Hospital, Clinic, or Other Facility Administered Medication Ordered Dose Route Frequency Start Date End Date Status Albuterol Sulfate (Proventil) (2.5 MG/3ML) 0.083% inhalation solution 2.5 mgIndications:ILD (interstitial lung disease) ([facility]),Hypersensitivity pneumonitis (HCC),COPD, group B, by GOLD 2017 classification ([facility]),Dyspnea on exertion,Chronic cough 2.5 mg NEBULIZER ONCE PRN 01/07/2024 01/06/2025 Ac tive documented as of this encounter (statuses as of 06/23/2024) Active Problems Problem Noted Date Diagnosed Date [...] Mri done at [facility] Statin intolerance 07/27/2007 Overview (07/27/2007): Hepatitis with Zocor Other sleep apnea 06/01/2001 documented as of this encounter (statuses as of 06/23/2024) Resolved Problems Problem Noted Date Diagnosed Date [...] Mri done at [facility] Cerebrovascular event, ill-d efined, within last 8 weeks 02/23/2007 11/17/2008 Overview (11/17/2008): Modified per CVA protocol #8 Chronic rhinitis 09/16/2005 12/31/2017 Deviated nasal septum 03/27/20052017 Acquired deformity of nose 03/27/2005 1 08/31/2016 NASAL & SINUS DIS NEC 03/27/20052016 Other chronic sinusitis 03/27/200508/2018 CHRONIC LYMPHOID LEUKEMIA [facility] MENTION OF REMISSION 02/25/2005 04/14/2018 ADVANCE [...] as of this encounter (statuses as of 06/23/2024) Immunizations Name Administration Dates Next Due Pneumococcal [...] 9:00 AM EST Pharmacy Pharmacy Hematology Oncology [facility] [address] [place] [address] [facility] [place]c [address] [place] [address] 09/06/2024 2:30 PM EST Office Visit Hematology/Oncology [facility] [address] [place] [phone] Lucien Jamil MD [address] [place] [address] 10/04/2024 9:00 AM EST Office Visit Allergy/Immunology [facility] [address] [place] [address] Ric Cherry MD [address] [place] [address] 11/22/2024 11:00 AM EDT Office Visit Cardiology, [facility] [address] [facility] [place] [address] Cuauhtemoc Jo DO [address] [place] [address] 11/30/2024 12:00 PM EDT Office Visit Pulmonary Medicine, [facility] [address] [place] [address] Phillip Hernandez MD [address] [place] [address] 12/03/2024 11:15 AM EDT Office Visit [facility]ology [facility] [address] [facility] [place] [address] Susanne Thrasher MD [address] [place] [address] Pending Results Name Type Priority Associated Diagnoses Date /Time CBC WITH WBC DIFFERENTIAL Lab STAT CLL (chronic lymphocytic leukemia) ([facility]) 06/23/2024 9:10 AM EST COMPREHENSIVE METABOLIC PANEL Lab STAT CLL (chronic lymphocytic leukemia) ([facility]) 06/23/2024 9:10 AM EST CBC Lab STAT CLL (chronic lymphocytic leukemia) ([facility]) 06/23/2024 9:10 AM EST DIFFERENTIAL, AUTOMATED Lab STAT CLL (chronic lymphocytic leukemia) ([facility]) 06/23/2024 9:10 AM EST Health Maintenance Due Date Last Done Comments COVID-19 Vaccine (#1) 02/07/1945 Zoster Vaccines (1 of 2) 02/07/1959 Adult Wellness Visit 02/07/2006 CKD PHOS USE SMARTSET 71151 11/29/202311/03, 11/07/2022, 10/16/2021, Additional history exists Influenza Vaccine (FLU shot) (#1) 2024 Albumin/Creatinine Ratio 05/22/2024 023, 05/09/2022, 09/17/1999 Depression Screening 05/22/2024 05/22/2023 GFR 11/29/2024 05/31/2024, 10/11/2023, 04/22/2024, Additional history exists DTap/Tdap Vaccines (4 - Td or Tdap) 12/01/2024 12/01/2014, 12/01/2014, 12/01/2014 CKD HGB USE SMARTSET [id number] 05/31/202505/31, 05/31/2024, 05/07/2024, Additional history exists O2 [...] this encounter Medical Devices Implanted Type Area Plastics Spreading Machine Operator Device Identifier Shelf Expiration Date Model / Serial / Lot Valve Korey 3 Ultra 26mm - [id number] Implanted:Qty: 1 on 12/24/2022 by Jesse Tanner MD at [facility] [place] [employer] [id number] 07/03/2023 [id number] / / Lead Pace Selectsecure 3830-69 - [id number] Implanted:Qty: 1 on 12/26/2022 by Keily Kelley IV, MD at [facility] [employer] : CRM [id number] 11/19/2024 [id number] / [id number] / [id number] Lead Novus Bipolar 52cm - [id number] Implanted:Qty: 1 on 12/26/2022 by Keily Kelley IV, MD at [facility] [place] [employer] : CRM [id number] 10/10/2024 5076- 52 / [id number] / [id number] Pacemaker [place] Xt Dr Orosco [facility] - [id number] Implanted:Qty: 1 on 12/26/2022 by Keily Kelley IV, MD at [facility] [place] [employer] [id number] 05/17/2024 [id number] / [id number] / [id number] documented as of this encounter Visit Diagnoses [...] Advance Directives occurred with: Patient Care Teams Customer Account Representative Relationship Specialty Start Date End Date Vincent Slaughter MD [address] [facility] [place] [address] PCP - General Internal Medicine 05/22/21 documented as of this encounter
--- OUTSIDE RECORDS SUMMARY | 2024-08-26 09:39 | External Medical Summary | Summary of Care ---
Author Name Unknown Organization [facility] Address [address] [place] [address] Phone [phone] Care Team Providers Care Rn First Assistant Name Role Phone Vincent Slaughter MD Primary Care Provider + Reason for Visit * Reason Onset Date Comments Wound Care 06/17/2024 Encounter Details Date Type Department Care Team (Late st Contact Info) Description 06/17/[address] 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 30 mL 12 3 Active Allopurinol 100 MG Oral Tablet (Zyloprim)Indicat ions:Idiopathic chronic gout of multiple sites without tophus Take 1 Tablet by mouth in the morning. 30 Tablet 11 3 Active Colchicine 0.6 MG Oral TabletIndications [...] follow package directions 21 Tablet 4 Active Hospital, Clinic, or Other Facility Administered Medication Ordered Dose Route Frequency Start Date End Date Status Albuterol Sulfate (Proventil) (2.5 MG/3ML) 0.083% inhalation solution 2.5 mgIndications:ILD (interstitial lung disease) (HCC),Hypersensitivity pneumonitis (HCC),COPD, group B, by GOLD 2017 classification (HCC),Dyspnea on exertion,Chronic cough 2.5 mg NEBULIZER ONCE PRN 01/07/2024 01/06/2025 Ac tive documented as of this encounter (statuses as of 06/17/2024) Active Problems Problem Noted Date Diagnosed Date [...] hemisphere infarct. Mri 01/14/[address] [facility] Statin intolerance 07/27/2007 Overview (07/27/2007): Hepatitis with Zocor Other sleep apnea 06/01/2001 documented as of this encounter (statuses as of 06/17/2024) Resolved Problems Problem Noted Date Diagnosed Date [...] hemisphere infarct. Mri 01/14/[address] [facility] Cerebrovascular event, ill-d efined, within last 8 weeks 02/23/2007 11/17/2008 Overview (11/17/2008): Modified per CVA protocol #8 Chronic rhinitis 09/16/2005 12/31/2017 Deviated nasal septum 03/27/20052017 Acquired deformity of nose 03/27/2005 1 08/31/2016 NASAL & SINUS DIS NEC 03/27/20052016 Other chronic sinusitis 03/27/200508/2018 CHRONIC LYMPHOID LEUKEMIA [facility] MENTION OF REMISSION 02/25/2005 04/14/2018 [...] as of this encounter (statuses as of 06/17/2024) Immunizations Name Administration Dates Next Due Pneumococcal [...] encounter Miscellaneous Notes * Telephone Encounter - Nisha Ahumada LPN - 06/17/2024 9:56 AM EST Spoke to Pt. He states he has been using the bandages we gave him and vaseline on wound. He is concerned that the wound is not healing or is taking longer than usual to heal. He states he has not hadany changes to his medications lately. Explained to him that the wound is expected to take a while to heal and that is normal. Asked if he has any concern for an infection. He states there is not signs of infection. Per Dr. Aguilar no need for an appt unless signs of infection at this time. Advised Pt to give it more time and in a few weeks if he feels it is not progressing in the healing process to call and schedule a follow up. Pt is agreeable. * Telephone Encounter - Juany Gonsalez OSA - 06/17/2024 9:25 AM EST Patient called in and stated that the location that he had treated about 6 weeks ago still is not healing. He said if you would like him to come in for an appointment he can or if you would like him to see a behavior support specialist he is able to do that as well. documented in this encounter Plan of Treatment Upcoming Encounters Date Type Department Care Team (Late st Contact Info) Description 06/30/2024 9:00 AM EST Pharmacy Pharmacy Hematology [facility] [address] [place] [address] [facility] [address] [place] [address] 09/06/2024 2:30 PM EST Office Visit Hematology/Oncology [facility] [address] [place] [address] Lucien Jamil MD [address] [place] [address] 10/04/2024 9:00 AM EST Office Visit Allergy/Immunology [facility] [address] [place] [address] Ric Cherry MD [address] [place] [address] 11/22/2024 11:00 AM EDT Office [facility], [facility] [place] [address] Cuauhtemoc Jo DO [address] [facility] [place] [address] 11/30/2024 12:00 PM EDT Office Visit Pulmonary Medicine, [facility] [address] [facility] [place] [address] Phillip Hernandez MD [address] [place] [address] 12/03/2024 11:15 AM EDT Office Visit Otolaryngology [facility] [address] [facility] [place] [address] Susanne Thrasher MD [address] [place] [address] Health Maintenance Due Date Last Done Comments COVID-19 Vaccine (#1) 02/07/1945 Zoster Vaccines (1 of 2) 02/07/1959 Adult Wellness Visit 02/07/2006 CKD PHOS USE SMARTSET 55042 11/29/2023 04/2 02/2023, 11/07/2022, 10/16/2021, Additional history exists Influenza Vaccine (FLU shot) (#1) 2024 Albumin/Creatinine Ratio 05/22/2024 023, 05/09/2022, 09/17/1999 Depression Screening 05/22/2024 05/22/2023 GFR 11/29/2024 05/31/2024, 10/11/2023, 04/22/2024, Additional history exists DTap/Tdap Vaccines (4 - Td or Tdap) 12/01/2024 12/01/2014, 12/01/2014, 12/01/2014 CKD HGB USE SMARTSET 79676 05/31/202505/31, 05/31/2024, 05/07/2024, Additional history exists O2 [...] this encounter Medical Devices Implanted Type Area Cement Patcher Device Identifier Shelf Expiration Date Model / Serial / Lot Valve Korey 3 Ultra 26mm - [id number] Implanted:Qty: 1 on 12/24/2022 by Jesse Tanner [place] [facility] [place] [employer] [id number] 07/03/2023 [id number] / / Lead Pace [employer] 3830-69 - [id number] Implanted:Qty: 1 on 12/26/2022 by Keily Kelley IV, [place] [facility] [employer] : CRM [id number] 11/19/2024 [id number] / [id number] / [id number] Lead Novus Bipolar 52cm - [id number] Implanted:Qty: 1 on 12/26/2022 by Keily Kelley IV, [place] [facility] [employer] : CRM [id number] 10/10/2024 5076- 52 / [id number] / [id number] Pacemaker [place] Xt Dr Orosco [facility] - [id number] Implanted:Qty: 1 on 12/26/2022 by Keily Kelley IV, MD at [facility] [employer] [id number] 05/17/2024 [id number] / [id number] / [id number] documented as of this encounter Advance Directives * Full Code (Latest Code Status on File) Date Activated Date Inactivated Comments 12/24/2022 11:13 AM 12/27/2022 10:05 PM This order reflects the patients wishes and were consensually agreed upon. Question Answer Comments Discussion of Advance Directives occurred with: Patient Care Teams Rn First Assistant Relationship Specialty Start Date End Date Vincent Slaughter MD [address] [place] [address] PCP - General Internal Medicine 05/22/21 documented as of this encounter
--- OUTSIDE RECORDS SUMMARY | 2024-08-26 09:39 | External Medical Summary | Summary of Care ---
Author Name Unknown Organization [facility] Address [address] [place] [address] Phone [phone] Care Team Providers Care Night Monitor Name Role Phone Vincent Slaughter MD Primary Care Provider + Reason for Visit * Reason Comments Wound Recheck S/p biopsy on Left u pper arm 05/10/24 Encounter Details Date Type Department Care Team (Late st Contact Info) Description 05/31/2024 10:30 AM EDT Office Visit [facility] Surgery [facility] 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 As needed. About every 2 days.. 30 Tab 11/25/2016 Active aspirin 81 MG chewable tablet Take 1 Tablet by mouth in the morning. Takes every other day . 100 Tab 5 07/08/2018 Active Triamcinolone Acetonide 55 MCG/ACT Nasal Aerosol Administer into nostril 2 Sprays in the morning AND 2 Sprays before bedtime. 16.9 mL 12 11/01/2021 Active ProAir HFA 108 (90 Base) MCG/ACT Inhalation Aerosol SolutionIndication s:COVID-19 virus infection Inhale by mouth 2 Puffs every 4 hours as needed for Wheezing. 18 g 5 01/16/2022 Active Spacer/Aero-Holdin g Chambers DeviceIndications: Pneumonia due to COVID-19 virus Use with inhaler as directed . 1 Each 03/04/2022 Active oxyCODONE-Acetamin ophen 5-325 MG Oral Tablet (Percocet)Indicati ons:Persistent headaches Take 1 Tablet by mouth every 6 hours as needed for Pain, Breakthrough. 1 TABLET EVERY 6 HOURS NEEDED 60 Tablet 11/07/2022 Active Azelastine HCl 0.1 % Nasal Solution (Astelin) Administer 1 [place] into nostril in the morning and 1 [place] before bedtime. 30 mL 12 11/22/2022 Active Azithromycin 500 MG Oral Tablet (Zithromax) Take 1 tablet 30-60 mg prior to any dental work. 1 Tablet 4 01/01/2023 Active Allopurinol 100 MG Oral Tablet (Zyloprim)Indicati ons:Idiopathic chronic gout of multiple sites without tophus Take 1 Tablet by mouth in the morning. 30 Tablet 11 05/23/2023 Active Colchicine 0.6 MG Oral TabletIndications: Idiopathic chronic gout of multiple sites without tophus Take 1 Tablet by mouth in the morning. 30 Tablet 5 05/23/2023 Active Triamcinolone Acetonide 0.1 % External Ointment (Aristocort) APPLY TOPICALLY TO AFFECTED AREA TWICE A DAY FOR 14 DAYS 15 g 08/13/2023 Active Doxycycline Monohydrate 100 MG Oral Capsule Take 1 Capsule by mouth in the morning and 1 Capsule before bedtime. 60 Capsule 5 09/10/2023 Active Trelegy Ellipta 200-62.5-25 MCG/ACT Aerosol Powder Breath Activated (Fluticasone-Umecl idinium-Vilanterol )Indications:Bronc hiectasis without complication (HCC),Chronic bronchitis, unspecified chronic bronchitis type (HCC),COPD (chronic obstructive pulmonary disease) with chronic bronchitis (HCC),ILD (interstitial lung disease) (HCC) Inhale 1 Puff by mouth in the morning. 60 Blister Dosing Unit 3 03/01/2024 Active Metoprolol Succinate ER 25 MG Oral Tablet Extended Release 24 Hour (toPROL XL)Indications:Asc ending aorta dilatation (HCC) TAKE 1 TABLET BY MOUTH TWICE DAILY every morning and before bedtime 180 Tablet 1 04/10/2024 Active Fexofenadine HCl 180 MG Oral Tablet (Yolanda) Take 1 Tablet by mouth in the morning. Active Montelukast Sodium 10 MG Oral Tablet (Singulair)Indicat ions:Post-nasal drainage,Allergic rhinitis, unspecified seasonality, unspecified trigger Take 1 Tablet by mouth in the morning. 30 Tablet 5 05/07/2024 Active Losartan Potassium 50 MG Oral Tablet (Cozaar)Indication s:HTN, goal below 140/90 TAKE 1 TABLET BY MOUTH EVERY MORNING 30 Tablet 5 05/26/2024 Active Chlorambucil 2 MG Oral Tablet (Leukeran)Indicati ons:CLL (chronic lymphocytic leukemia) ([facility]) Take 1 Tablet by mouth in the morning. Take medication on an empty stomach.. 30 Tablet 5 11/21/2023 4 Discontinue d(Refill) Hospital, Clinic, or Other Facility Administered Medication Ordered Dose Route Frequency Start Date End Date Status Albuterol Sulfate (Proventil) (2.5 MG/3ML) 0.083% inhalation solution 2.5 mgIndications:ILD (interstitial lung disease) ([facility]),Hypersensitivity pneumonitis ([facility]),COPD, group B, by GOLD 2017 classification ([facility]),Dyspnea on exertion,Chronic cough 2.5 mg NEBULIZER ONCE PRN 01/07/2024 01/06/2025 Ac tive documented as of this encounter (statuses as of 06/03/2024) Active Problems Problem Noted Date Diagnosed Date [...] 06/08/2020 Hx of nonmelanoma skin cancer 11/16/2019 Overview: SCC L neck 01/2023, SCC R frontal [...] edema 07/05/2009 HTN, goal below 140/90 06/22/2009 Overview: Modified per HTN protocol #16. CEREBROVASCULAR DZ, POST-STROKE 03/02/2009 Overview: Modified per CVA protocol #8. 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 Mri 01/14/2007 Mri done at [facility] Statin intolerance 07/27/2007 Overview: Hepatitis with Zocor Other sleep apnea 06/01/2001 documented as of this encounter (statuses as of 06/03/2024) Resolved Problems Problem Noted Date Diagnosed Date Resolved Date Benign hypertension with CKD (chronic kidney disease) stage III 07/01/2017 12/14/2020 Overview: Per CKD protocol Rib fractures 12/05/2014 07/01/2017 Thoracic compression fracture 11/26/2013 12/31/2017 Kidney disease, chronic, sta ge III (GFR 30-59 ml/min) 09/27/2013 11/14/2017 Overview: Per CKD protocol #1 CEREBROVASCULAR DZ, POST-STROKE 11/15/2008 03/02/2009 Overview: Modified per CVA protocol #8. 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 Mri 01/14/2007 Mri done at [facility] Cerebrovascular event, ill-d efined, within last 8 weeks 02/23/2007 11/17/2008 Overview: Modified per CVA protocol #8 Chronic rhinitis 09/16/2005 12/31/2017 Deviated nasal septum 03/27/20052017 Acquired deformity of nose 03/27/200508/31/2016 NASAL & SINUS DIS NEC 03/27/20052016 Other chronic sinusitis 03/27/200508/2018 CHRONIC LYMPHOID LEUKEMIA WI THOUT MENTION OF REMISSION 02/25/2005 04/14/2018 ADVANCE DIRECTIVE INFORMATION 01/04/2005 11/07/2022 Overview: No, Advance Directive brochure given to patient at prior appointment. Chest pain 11/20/2004 07/01/2017 FRACTURE NOS-OPEN 03/11/2002 12/31/2017 Calculus of kidney 06/01/2001 9 Dyslipidemia, goal to be determined 02/20/2011 Hyperparathyroidism 01/01/20 18 Overview: ICD-10 update of inactive term HYPERCALCEMIA 12/24/2016 History of colonic polyps Overview: ICD-10 update of inactive term Other allergic rhinitis 08/2018 Overview: ICD-10 update of inactive term HYPERTENSION NOS 06/26/2009 Overview: Modified per HTN protocol #16. documented as of this encounter (statuses as of 06/03/2024) Immunizations Name Administration Dates Next Due Pneumococcal [...] money to get more. Never true 11/07/2022 Utilities Answer Date Recorded Do you have trouble paying y our heating, water, or electric bill? (Adult - for ages 18 years and over) Not on file 01/20/2024 Is your family able to pay t he heat, water, or electric bill? (Household - for ages 0-17 years) Not on file 01/20/2024 Does your family have access to good internet? (Household - for ages 0-17 years) Not on file 01/20/2024 Social Connections Answer Date Recorded How often do you feel lonely or isolated from those around you? (Adult - for ages 18 years and over) Not on file 01/20/2024 Sex and Gender Information Value Date Recorded Sex Assigned at Male 06/16/2019 12:52 PM EST Gender Identity Male 06/16/2019 12:52 PM EST Sexual Orientation Straight 06/16/2019 12 :52 PM EST Job Start Date Occupation Industry Not on file Not on file Not on file documented as of this encounter Functional Status Functional Status Response Date of Assess ment Are you deaf or do you have serious difficulty hearing? No-uses hearing aids but can hear 12/24/2022 Are you blind or do you have serious difficulty seeing, even when wearing glasses? No 12/24/2022 Do you have serious difficul ty walking or climbing stairs? (5 years old or older) No 12/24/2022 Do you have difficulty dress ing or bathing? (5 years old or older) No 12/24/2022 Because of a physical, menta l, or emotional condition, do you have difficulty doing errands alone such as visiting a doctor s office or shopping? (15 years old or older) No 12/24/2022 Cognitive Status Response Date of Assessm ent Because of a physical, menta l, or emotional condition, do you have serious difficulty concentrating, remembering, or making decisions? (5 years old or older) No 12/24/2022 documented as of this encounter Progress Notes * Candace Aguilar MD - 06/03/2024 10:33 PM EDT SUBJECTIVE: HPI: Luis M Tirado is a 84 year old male seen for wound check of curettage site on left upper arm . EXAM Curettage site on left upper arm with mild surrounding erythema and mild hypertrophic granulation tissue, no evidence of infection, overall healing well PLAN Wound cleaned and gently debrided Silver nitrate applied to hypertrophic granulation tissue Mupirocin ointment provided to be applied to wound (can mix with Vaseline) with bandage until healed. Follow-up: as needed The patient was encouraged to contact me with any further questions or concerns. Candace Aguilar MD Associate, [facility]graph[facility] Surgery & Dermatologic Surgery 05/31/2024 documented in this encounter Nursing Notes * Nisha Ahumada LPN - 05/31/2024 10:22 AM EDT Chief Complaint Patient presents with Wound Recheck S/p biopsy on Left upper arm 05/10/24 Pt came in today concerned of possible infection at biopsy site on Left upper arm. He noticed pus and states it is sore to touch at times. Removed bandage and applied vinegar soak. documented in this encounter Plan of Treatment Upcoming Encounters Date Type Department Care Team (Late st Contact Info) Description 06/30/2024 9:00 AM EST Pharmacy Pharmacy Hematology Oncology [facility] [place] [address] [place] [address] [facility] Hem/Onc [address] [place] [address] 09/06/2024 2:30 PM EST Office Visit Hematology[facility] [address] [facility] [address] [place] [phone] Lucien Jamil MD [address] [place] [address] 11/22/2024 11:00 AM EDT Office Visit [facility], [facility] [address] [facility] [place] [address] Cuauhtemoc Jo DO [address] [facility] [place] [address] 11/30/2024 12:00 PM EDT Office Visit Pulmonary Medicine, [facility] [address] [facility] [place] [address] Phillip Hernandez MD [address] [place] [facility] [place] [address] 12/03/2024 11:15 AM EDT Office Visit Otolaryngology [facility] [address] [place] [address] Susanne Thrasher MD [address] [place] [address] Health Maintenance Due Date Last Done Comments COVID-19 Vaccine (#1) 02/07/1945 Zoster Vaccines (1 of 2) 02/07/1959 Adult Wellness Visit 02/07/2006 CKD PHOS USE SMARTSET 14896 11/29/2023 04/2 02/2023, 11/07/2022, 10/16/2021, Additional history exists Influenza Vaccine (FLU shot) (#1) 2024 Albumin/Creatinine Ratio 05/22/2024 023, 05/09/2022, 09/17/1999 Depression Screening 05/22/2024 05/22/2023 GFR 11/29/2024 05/31/2024, 1011/2023, 04/22/2024, Additional history exists DTap/Tdap Vaccines (4 - Td or Tdap) 12/01/2024 12/01/2014, 12/01/2014, 12/01/2014 CKD HGB USE SMARTSET 14732 05/31/202505/31, 05/31/2024, 05/07/2024, Additional history exists O2 ASSESSMENT COMPLETED IN PAST YEAR FOR COPD 06/02/2025 06/02/2024 Pneumococcal Vaccine: 65+ Years Completed 07/01/2017, 06/26/2016, [...] this encounter Medical Devices Implanted Type Area Back Tender Device Identifier Shelf Expiration Date Model / Serial / Lot Valve Korey 3 Ultra 26mm - [id number] Implanted:Qty: 1 on 12/24/2022 by Jesse Tanner MD at [facility] [employer] [id number] 07/03/2023 [id number] / / Lead Pace Selectsecure 3830-69 - [id number] Implanted:Qty: 1 on 12/26/2022 by Keily Kelley IV, MD at [facility] [employer] : CRM [id number] 11/19/2024 [id number] / [id number] / [id number] Lead Novus Bipolar 52cm - [id number] Implanted:Qty: 1 on 12/26/2022 by Keily Kelley IV, MD at [facility] [employer] : CRM [id number] 10/10/2024 [id number] / [id number] / [id number] Pacemaker [place] Xt [address] [facility] - [id number] Implanted:Qty: 1 on 12/26/2022 by Keily Kelley IV, MD at [facility] [employer] [id number] 05/17/2024 [id number] / [id number] / [id number] documented as of this encounter Visit Diagnoses Diagnosis Visit for wound check- Primary Encounter for other specified aftercare documented in this encounter Advance Directives * Full Code (Latest Code Status on File) Date Activated Date Inactivated Comments 12/24/2022 11:13 AM 12/27/2022 10:05 PM This order reflects the patients wishes and were consensually agreed upon. Question Answer Comments Discussion of Advance Directives occurred with: Patient Care Teams Night Monitor Relationship Specialty Start Date End Date Vincent Slaughter MD [address] [place] [id number] PCP - General Internal Medicine 05/22/21 documented as of this encounter
--- OUTSIDE RECORDS SUMMARY | 2024-08-26 09:39 | External Medical Summary ---
Author Name Unknown Address Unknown Organization K[facility] [address] [place] [address] Laboratory Report Ordering Provider Test Date Status KAMI CHAPMAN 07/07/2024 13:35:29 Final Observation Date Value Abnormality Reference (Units ) Status BUN 07/07/2024 13:35:29 16 6-20 (mg/dL) Final Creatinine 07/07/2024 13:35:29 1.4 Above high normal 0.6-1.2 (mg/dL) Final Glomerular filtration rate/1.73 sq M.predicted [Volume Rate/Area] in Serum, Plasma or Blood by Creatinine-based formula (CKD-EPI) 07/07/2024 13:35:29 51 Below low normal >=60 (mL/min) Final eGFR is calculated based on the CKD-EPI 2020 equation. Sodium 07/07/2024 13:35:29 143 135-146 (m mol/L) Final Potassium 07/07/2024 13:35:29 3.5 3.5-5.1 (m mol/L) Final Cl 07/07/2024 13:35:29 107 98-107 (mm ol/L) Final CO2 07/07/2024 13:35:29 25 22-32 (mmo l/L) Final Anion gap 07/07/2024 13:35:29 11 7-15 (mmol /L) Final Glucose 07/07/2024 13:35:29 71 70-120 (mg /dL) Final Albumin 07/07/2024 13:35:29 4.7 3.8-5.0 (g /dL) Final AST (Aspartate aminotransferase) 07/07/2024 13:35:29 20 10-50 (U/L) Final Alk Phos 07/07/2024 13:35:29 79 35-130 (U/ L) Final Bilirubin, Total 07/07/2024 13:35:29 0.6 <=1 .2 (mg/dL) Final Calcium 07/07/2024 13:35:29 9.1 8.4-10.2 ( mg/dL) Final Protein 07/07/2024 13:35:29 6.5 6.0-8.3 (g /dL) Final ALT (Alanine aminotransferase) 07/07/2024 13:35:29 11 10-50 (U/L) Final Performing Location [facility] [address] [place] [address]
--- OUTSIDE RECORDS SUMMARY | 2024-08-26 09:39 | External Medical Summary | Summary of Care ---
Author Name Unknown Organization [facility] Address [address] [place] [address] Phone [phone] Care Team Providers Care Paramedic Instructor Name Role Phone Vincent Slaughter MD Primary Care Provider + Reason for Visit * Reason Comments Medication Management Encounter Details Date Type Department Care Team (Late st Contact Info) Description 06/30/2024 9:00 AM [facility] Pharmacy Pharmacy Hematology Oncology [facility] [address] [place], [place] [id number] [facility] Hem/Onc [address] [place], [place] [id number] CLL (chronic lymphocytic leukemia) ([facility])* Allergies Active Allergy Reactions Criticality Noted Date Comments Heparin High 01/01/2023 ?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 30 mL 12 3 Active [...] 5 06/29/2024 1:18 PM EST 4 Active methylPREDNISolon e 4 MG [...] solution 2.5 mgIndications:ILD (interstitial lung disease) ([facility]),Hypersensitivity pneumonitis ([facility]),COPD, group B, by GOLD 2017 classification ([facility]),Dyspnea on exertion,Chronic cough 2.5 mg NEBULIZER ONCE PRN 01/07/2024 01/06/2025 Ac tive documented as of this encounter (statuses as of 06/30/2024) Active Problems Problem Noted Date Diagnosed Date [...] infarct. Mri 01/14/[address] [facility] Statin intolerance 07/27/2007 Overview (07/27/2007): Hepatitis with Zocor Other sleep apnea 06/01/2001 documented as of this encounter (statuses as of 06/30/2024) Resolved Problems Problem Noted Date Diagnosed Date [...] infarct. Mri 01/14/[address] [facility] Cerebrovascular event, ill-d efined, within last [...] as of this encounter (statuses as of 06/30/2024) Immunizations Name Administration Dates Next Due Pneumococcal [...] documented in this encounter Progress Notes * Carla Mart, [facility] - 06/30/2024 2:59 PM EST MEDICATION THERAPY MANAGEMENT CHLORAMBUCIL (LEUKERAN) TREATMENT PROGRESS NOTE Luis M Tirado [phone] Patient Phone Numbers SPEAK LOUD HARD OF HEARING AND DIFFICULTY WITH TOUCH SCREEN PHONE Communication: Spoke to: Patient Current Treatment: Medication: Chlorambucil (Leukeran) Indication: CLL Dose: 2 mg daily Administration: by mouth without regards to food Start Date: 11/16/19; 11/30/23 Primary Command And Control: Dr. Jamil Prophylactic Meds: Allopurinol 200 mg by mouth daily Interval History: Leukeran held 01/18/20 - 08/10/20 and 10/2021-11/29/23 due to declining WBC and side effects Per TE 11/14/23, WBC increasing and pt advised to resume chlorambucil Per MOHS OV 01/05/24, advised to continue triamcinolone cream to skin BID and continue vinegar soaks Per PCP OV 05/07/24, pt to start montelukast for post-nasal drip No concerns, tolerating therapy well Pt reports he had missed a week of therapy due to delay in delivery prior to OV with Dr Jamil Pt reports he currently has 6 tabs remaining and shipment has not arrived from [facility] Changes to medication list since last visit? No Assessment and Plan: Advised patient to call [facility] to get update on shipment status Pt verbalized understanding and will call this afternoon Labs from 06/23 reviewed: WBC/ALC elevated but stable ANC WNL Hgb low but improving PLT stable at grade 1 thrombocytopenia BUN elevated Encouraged to increase fluid intake Will monitor closely All other labs stable Continue chlorambucil with labs every 2 weeks (as per OV 06/23) Pt will walk in next Friday Mailed lab results as per patient request Assessment of compliance: compliant Dose adjustment needed based on lab or adverse drug reaction? No Follow up: 07/07 MTM with labs Carla Mart, DarrelD, BCOP Clinical Pharmacist 06/30/2024, 3:16 PM Pertinent labs: Latest Reference Range & Units 05/07/24 12:48 05/31/24 10:10 06/23/24 09:10 WBC 4.00 - 10.80 K/uL 25.83 (H) 21.40 (H) 29.87 (H) RBC 4.50 - 5.25 M/uL 3.70 3.58 3.75 HGB 14.0 - 16.8 g/dL 11.8 (L) 11.3 (L) 11.9 (L) HCT 40.0 - 48.4 % 37.2 (L) 36.0 (L) 37.8 (L) MCV 82.0 - 99.5 fL 100.5 100.6 100.8 MCH 27.0 - 34.0 pg 31.9 31.6 31.7 MCHC 32.0 - 36.0 g/dL 31.7 31.4 31.5 RDW 11.5 - 15.5 % 14.3 14.3 14.5 PLT 140 - 400 K/uL 114 (L) 99 (L) 97 (L) MPV 6.6 - 11.1 fL 9.0 9.2 9.0 CBC WITH WBC DIFFERENTIAL Rpt ! Rpt ! Rpt ! Absolute Neutrophils 1.80 - 7.70 K/uL 3.87 3.00 2.99 Absolute Lymphocytes 1.00 - 4.80 K/uL 20.92 (H) 17.33 (H) 26.58 (H) (H): Data is abnormally high (L): Data is abnormally low !: Data is abnormal Rpt: View report in Results Review for more information Latest Reference Range & Units 05/07/24 12:48 05/31/24 10:10 06/23/24 09:10 BUN 6 - 20 mg/dL 21 (H) 19 22 (H) CREATININE 0.6 - 1.2 mg/dL 1.3 (H) 1.3 (H) 1.4 (H) EGFR >=60 mL/min 52 (L) 53 (L) 50 (L) (H): Data is abnormally high (L): Data is abnormally low Latest Reference Range & Units 05/07/24 12:48 05/31/24 10:10 06/23/24 09:10 Albumin 3.8 - 5.0 g/dL 4.7 4.3 4.4 AST 10 - 50 U/L 24 21 18 ALT 10 - 50 U/L <5 (L) <5 (L) 10 Alkaline Phosphatase 35 - 130 U/L 80 78 71 Bilirubin, Total <=1.2 mg/dL 0.4 0.5 0.5 (L): Data is abnormally low Suggested Labs: Monitor LFTs, CBC/diff weekly, with WBC monitored twice weekly during the first 3 to 6 weeks of treatment Time Spent on Encounter: 11 - 15 minutes Encounter Group: Hematology Encounter Interventions Item Category: Oral Chemotherapy Chlorambucil Problem/Rationale: Safety: Needs additional monitoring - Medication Requires monitoring Pharmacist Intervention(s): Care coordination and Lab monitoring Magnitude of Intervention: Monitoring with direction (Level 1) documented in this encounter Plan of Treatment Upcoming Encounters Date Type Department Care Team (Late st Contact Info) Description 07/07/2024 9:00 AM EST Pharmacy Pharmacy Hematology Oncology [facility] [address] [place] [address] [facility], [facility] Hem/Onc [address] [place] [address] 09/06/2024 2:30 PM EST Office Visit Hematology/Oncology [facility] [place] [address] [place] [address] Lucien Jamil MD [address] [place] [address] 10/04/2024 9:00 AM EST Office Visit Allergy/Immunology [facility] [address] [facility] [place], [place] [address] Ric Cherry MD [address] [facility] [place], [place] [address] 11/22/2024 11:00 AM EDT Office Visit Cardiology, [facility] [address] [place] [address] Cuauhtemoc Jo DO [address] [facility] [place] [address] 11/30/2024 12:00 PM EDT Office Visit Pulmonary Medicine, [facility] [address] [place] [address] Phillip Hernandez MD [address] [facility] [place] [address] 12/03/2024 11:15 AM EDT Office Visit Otolaryngology [facility] [address] [facility] [place] [address] Susanne Thrasher MD [address] [facility] [place] [address] Health Maintenance Due Date Last Done Comments COVID-19 Vaccine (#1) 02/07/1945 Zoster Vaccines (1 of 2) 02/07/1959 Adult Wellness Visit 02/07/2006 CKD PHOS USE SMARTSET 66398 11/29/202311/03, 11/07/2022, 10/16/2021, Additional history exists Influenza Vaccine (FLU shot) (#1) 2024 Albumin/Creatinine Ratio 05/22/2024 023, 05/09/2022, 09/17/1999 Depression Screening 05/22/2024 05/22/2023 DTap/Tdap Vaccines (4 - Td or Tdap) 12/01/2024 12/01/2014, 12/01/2014, 12/01/2014 GFR 12/21/2024 06/23/2024, 05/05, 05/07/2024, Additional history exists O2 ASSESSMENT COMPLETED IN PAST YEAR FOR COPD 06/11/2025 06/11/2024 CKD HGB USE SMARTSET 16861 06/23/202506/23, 06/23/2024, 05/31/2024, Additional history exists Pneumococcal Vaccine: 65+ Years [...] this encounter Medical Devices Implanted Type Area Leather Tacker Device Identifier Shelf Expiration Date Model / Serial / Lot Valve Korey 3 Ultra 26mm - [id number] Implanted:Qty: 1 on 12/24/2022 by Jesse Tanner MD at [facility] [employer] [id number] 07/03/2023 [id number] / / Lead Pace Selectsecure 3830-69 - [id number] Implanted:Qty: 1 on 12/26/2022 by Keily Kelley IV, MD at [facility] [employer] : CRM [id number] 11/19/2024 [id number] / [id number] / [id number] Lead Novus Bipolar 52cm - [id number] Implanted:Qty: 1 on 12/26/2022 by Keily Kelley IV, MD at [facility] [employer] : CRM [id number] 10/10/2024 5076- 52 / [id number] / [id number] Pacemaker Pilger Xt Mri [facility] - [id number] Implanted:Qty: 1 on 12/26/2022 by Keily Kelley IV, MD at [facility] [employer] [id number] 05/17/2024 [id number] / [id number] / [id number] documented as of this encounter Visit Diagnoses [...] Advance Directives occurred with: Patient Care Teams Paramedic Instructor Relationship Specialty Start Date End Date Vincent Slaughter MD [address] [place] [address] PCP - General Internal Medicine 05/22/21 documented as of this encounter
--- OUTSIDE RECORDS SUMMARY | 2024-08-26 09:39 | External Medical Summary | Summary of Care ---
Author Name Unknown Organization [facility] Address [address] [place] [address] Phone [phone] Care Team Providers Care Biochemist Name Role Phone Vincent Slaughter MD Primary Care Provider + Reason for Visit * Reason Comments Outpatient Testing Encounter Details Date Type Department Care Team (Late st Contact Info) Description 07/07/2024 1:30 PM EST [facility] [address] [place] [address] [facility] [address] [place] [address] CLL (chronic lymphocytic leukemia) (HCC) Allergies Active [...] 0.1 % Nasal Solution (Astelin) Administer 1 [place] into nostril in the morning and 1 [place] before bedtime. 30 mL 12 3 Active [...] solution 2.5 mgIndications:ILD (interstitial lung disease) ([facility]),Hypersensitivity pneumonitis (HCC),COPD, group B, by GOLD 2017 classification ([facility]),Dyspnea on exertion,Chronic cough 2.5 mg [...] infarct. Mri 01/14/2007 Mri done at [facility] Statin intolerance 07/27/2007 Overview (07/27/2007): Hepatitis [...] infarct. Mri 01/14/2007 Mri done at [facility] Cerebrovascular event, ill-d efined, within last 8 weeks 02/23/2007 11/17/2008 Overview (11/17/2008): Modified per CVA protocol #8 Chronic rhinitis 09/16/2005 12/31/2017 Deviated nasal septum 03/27/20052017 Acquired deformity of nose 03/27/2005 1 08/31/2016 NASAL & SINUS DIS NEC 03/27/20052016 Other chronic sinusitis 03/27/200508/2018 CHRONIC LYMPHOID [place] [facility] MENTION OF REMISSION [...] Care Team (Late st Contact Info) Description 09/06/2024 2:30 PM EST Office Visit Hematology/Oncology [facility] [address] [facility] [place] [phone] Lucien Jamil MD [address] [facility] [place] [address] 10/04/2024 9:00 AM EST Office Visit Allergy/Immunology [facility] [address] [facility] [place] [address] Ric Cherry MD [address] [facility] [place] [address] 11/22/2024 11:00 AM EDT Office Visit Cardiology, [facility] [address] [place] [address] Cuauhtemoc Jo DO [address] [place] [address] 11/30/2024 12:00 PM EDT Office Visit Pulmonary Medicine, [facility] [address] [place] [phone] Phillip Hernandez MD [address] [place] [address] 12/03/2024 11:15 AM EDT Office Visit Otolaryngology [facility] [address] [place] [address] Susanne Thrasher MD [address] [place] [address] Pending Results Name Type Priority Associated Diagnoses Date /Time CBC WITH WBC DIFFERENTIAL Lab STAT CLL (chronic lymphocytic leukemia) ([facility]) 07/07/2024 1:35 PM EST COMPREHENSIVE METABOLIC PANEL Lab STAT CLL (chronic lymphocytic leukemia) ([facility]) 07/07/2024 1:35 PM EST CBC Lab STAT CLL (chronic lymphocytic leukemia) ([facility]) 07/07/2024 1:35 PM EST DIFFERENTIAL, AUTOMATED Lab STAT CLL (chronic lymphocytic leukemia) ([facility]) 07/07/2024 1:35 PM EST Health Maintenance Due Date Last Done Comments COVID-19 Vaccine (#1) 02/07/1945 Zoster Vaccines (1 of 2) 02/07/1959 Adult Wellness Visit 02/07/2006 CKD PHOS USE SMARTSET 73285 11/29/202311/03, 11/07/2022, 10/16/2021, Additional history exists Influenza Vaccine (FLU shot) (#1) 2024 Albumin/Creatinine Ratio 05/22/2024 023, 05/09/2022, 09/17/1999 Depression Screening 05/22/2024 05/22/2023 DTap/Tdap Vaccines (4 - Td or Tdap) 12/01/2024 12/01/2014, 12/01/2014, 12/01/2014 GFR 12/21/2024 06/23/2024, 05/05, 05/07/2024, Additional history exists O2 ASSESSMENT COMPLETED IN PAST YEAR FOR COPD 06/11/2025 06/11/2024 CKD HGB USE SMARTSET 54698 06/23/202506/23, 06/23/2024, 05/31/2024, Additional history exists Pneumococcal [...] this encounter Medical Devices Implanted Type Area An/Syq 13 Nav/C2 Operator Device Identifier Shelf Expiration Date Model / Serial / Lot Valve Korey 3 Ultra 26mm - [id number] Implanted:Qty: 1 on 12/24/2022 by Jesse Tanner MD at [facility] [place] [employer] [id number] 07/03/2023 [id number] / / Lead Pace Selectsecure 3830-69 - [id number] Implanted:Qty: 1 on 12/26/2022 by Keily Kelley IV, MD at [facility] [place] [employer] : CRM [id number] 11/19/2024 [id number] 9 / [id number] / [id number] Lead Novus Bipolar 52cm - [id number] Implanted:Qty: 1 on 12/26/2022 by Keily Kelley IV, MD at [facility] [place] [employer] : CRM [id number] 10/10/2024 5076- 52 / [id number] / [id number] Pacemaker Parul Xt Dr Orosco [facility] - [id number] Implanted:Qty: 1 on 12/26/2022 by Keily Kelley IV, MD at [facility] [place] [employer] [id number] 05/17/2024 [id number] / [id number] / [id number] documented as of this encounter Visit Diagnoses [...] Advance Directives occurred with: Patient Care Teams Biochemist Relationship Specialty Start Date End Date Vincent Slaughter MD [address] [facility] [place] [address] PCP - General Internal Medicine 05/22/21 documented as of this encounter
--- OUTSIDE RECORDS SUMMARY | 2024-08-26 09:40 | External Medical Summary ---
Author Name Unknown Address Unknown Organization K09:[facility] [place] [address] Laboratory Report Ordering Provider Test Date Status CHAPMAN,KAMI 05/31/2024 10:10:09 Final 2 times a week for 3-6 weeks , then every 1-2 weeks. Observation Date Value Abnormality Reference (Units ) Status SYNC LEUKOCYTES IN BLOOD BY AUTOMATED COUNT 05/31/2024 10:10:09 21.40 Above high normal 4.00-10.80 (K/uL) Final Neutrophils/100 leukocytes in Blood by Manual count 05/31/2024 10:10:09 14.0 Below low normal 40.0-75.0 (%) Final Lymphocytes/100 leukocytes in Blood by Manual count 05/31/2024 10:10:09 81.0 Above high normal 18.0-42.0 (%) Final Monocytes/100 leukocytes in Blood by Manual count 05/31/2024 10:10:09 2.0 1.0-11.0 (%) Final Eosinophils/100 leukocytes in Blood by Manual count 05/31/2024 10:10:09 3.0 0.0-6.0 (%) Final Neutrophils [#/volume] in Blood by Manual count 05/31/2024 10:10:09 3.00 1.80-7.70 (K/uL) Final Lymphocytes [#/volume] in Blood by Manual count 05/31/2024 10:10:09 17.33 Above high normal 1.00-4.80 (K/uL) Final Monocytes [#/volume] in Blood by Manual count 05/31/2024 10:10:09 0.43 0.00-1.10 (K/uL) Final Eosinophils [#/volume] in Blood by Manual count 05/31/2024 10:10:09 0.64 0.00-0.70 (K/uL) Final Nucleated erythrocytes/100 leukocytes [Ratio] in Blood by Automated count 05/31/2024 10:10:09 Final Variant lymphocytes [Presence] in Blood by Light microscopy 05/31/2024 10:10:09 Present Abnormal None Seen Final Smudge cells [Presence] in Blood by Light microscopy 05/31/2024 10:10:09 Present Abnormal None Seen Final Performing Location [facility] [address] [place] [address]
--- OUTSIDE RECORDS SUMMARY | 2024-08-26 09:40 | External Medical Summary | Summary of Care ---
Author Name Unknown Organization [facility] Address [address] [place] [address] Phone [phone] Care Team Providers [facility] Director Name Role Phone Vincent Slaughter MD Primary Care Provider + Reason for Visit * Reason Comments Follow Up Encounter Details Date Type Department Care Team (Late st Contact Info) Description 06/02/2024 9:30 AM EDT Office Visit Hematology/Oncology [facility] [address] [facility] [place] [phone] Lucien Jamil MD [address] [place] [address] CLL (chronic lymphocytic leukemia) ([facility])* Allergies Active Allergy Reactions Criticality Noted Date Comments Heparin High 01/01/2023 ?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 18 g 5 01/16/2022 Active Spacer/Aero-Holding Chambers DeviceIndications:P neumonia due to COVID-19 virus Use with inhaler as directed . 1 Each 03/04/2022 Active oxyCODONE-Acetamino phen 5-325 MG Oral Tablet (Percocet)Indicatio ns:Persistent headaches Take 1 Tablet by mouth every 6 hours as needed for Pain, Breakthrough. 1 TABLET EVERY 6 HOURS NEEDED 60 Tablet 11/07/2022 Active Azelastine HCl 0.1 % Nasal Solution (Astelin) Administer 1 [place] into nostril in the morning and 1 [place] before bedtime. 30 mL 12 11/22/2022 Active Azithromycin 500 MG Oral Tablet (Zithromax) Take 1 tablet 30-60 mg prior to any dental work. 1 Tablet 4 01/01/2023 Active Allopurinol 100 MG Oral Tablet (Zyloprim)Indicatio ns:Idiopathic chronic gout of multiple sites without tophus Take 1 Tablet by mouth in the morning. 30 Tablet 11 05/23/2023 Active Colchicine 0.6 MG Oral TabletIndications:I diopathic chronic gout of multiple sites without tophus [...] before bedtime. 60 Capsule 5 09/10/2023 Active Chlorambucil 2 MG Oral Tablet (Leukeran)Indicatio ns:CLL (chronic lymphocytic leukemia) (HCC) Take 1 Tablet by mouth in the morning. Take medication on an empty stomach.. 30 Tablet 5 11/21/2023 Active Trelegy Ellipta 200-62.5-25 MCG/ACT Aerosol Powder Breath Activated (Fluticasone-Umecli dinium-Vilanterol)I ndications:Bronchie ctasis without complication (HCC),Chronic bronchitis, unspecified chronic bronchitis type (HCC),COPD (chronic obstructive pulmonary disease) with chronic bronchitis (HCC),ILD (interstitial lung disease) (HCC) Inhale 1 Puff by mouth in the morning. 60 Blister Dosing Unit 3 03/01/2024 Active Metoprolol Succinate ER 25 MG Oral Tablet Extended Release 24 Hour (toPROL XL)Indications:Asce nding aorta dilatation (HCC) TAKE 1 TABLET BY MOUTH TWICE DAILY every morning and before bedtime 180 Tablet 1 04/10/2024 Active Fexofenadine HCl 180 MG Oral Tablet (Yolanda) Take 1 Tablet by mouth in the morning. Active Montelukast Sodium 10 MG Oral Tablet (Singulair)Indicati ons:Post-nasal drainage,Allergic rhinitis, unspecified seasonality, unspecified trigger Take 1 Tablet by mouth in the morning. 30 Tablet 5 05/07/2024 Active Losartan Potassium 50 MG Oral Tablet (Cozaar)Indications :HTN, goal below 140/90 TAKE 1 TABLET BY MOUTH EVERY MORNING 30 Tablet 5 05/26/2024 Active Hospital, Clinic, or Other Facility Administered Medication Ordered Dose Route Frequency Start Date End Date Status Albuterol Sulfate (Proventil) (2.5 MG/3ML) 0.083% inhalation solution 2.5 mgIndications:ILD (interstitial lung disease) (HCC),Hypersensitivity pneumonitis (HCC),COPD, group B, by GOLD 2017 classification ([facility]),Dyspnea on exertion,Chronic cough 2.5 mg NEBULIZER ONCE PRN 01/07/2024 01/06/2025 Ac tive documented as of this encounter (statuses as of 06/02/2024) Active Problems Problem Noted Date Diagnosed Date HIT (heparin-induced thrombocytopenia) Complete heart block 01/06/2023 S/P placement of [...] [facility] Statin intolerance 07/27/2007 Overview: Hepatitis with Zocor Other sleep apnea 06/01/2001 documented as of this encounter (statuses as of 06/02/2024) Resolved Problems Problem Noted Date Diagnosed Date [...] goal to be determined 02/20/2011 Hyperparathyroidism 01/01/20 Overview: ICD-10 update of inactive term HYPERCALCEMIA 12/24/2016 History of colonic polyps Overview: ICD-10 update of inactive term Other allergic rhinitis 08/2018 Overview: ICD-10 update of inactive term HYPERTENSION NOS 06/26/2009 Overview: Modified per HTN protocol #16. documented as of this encounter (statuses as of 06/02/2024) Immunizations Name Administration Dates Next Due Pneumococcal [...] Sign Reading Time Taken Comments Blood Pressure 125/67 06/02/2024 9:23 AM EDT Pulse 81 06/02/2024 9:23 AM EDT Temperature 36.4 C (97.5 F) 06/02/2024 9:23 AM ED T Respiratory Rate - - Oxygen Saturation 96% 06/02/2024 9:23 AM EDT Inhaled Oxygen Concentration - - Weight 78.9 kg (174 lb) 06/02/2024 9:23 AM EDT Height - - Body Mass Index 30.82 05/26/2024 10:18 AM EDT documented in this encounter Functional Status Functional Status Response [...] as of this encounter Progress Notes * Lucien Jamil MD - 06/02/2024 9:10 AM EDT Outpatient Consult Note Data Source: Patient, Epic record. Data Source: Patient, Epic record. 06/02/2024 9:10 AM Luis M Tirado [id number] 84 year old Patient Encounter: HEMATOLOGY/ONCOLOGY [facility] Current Treatment: Leukran Resume on 11/30/2023 because of the rising WBC count. Previous Treatment: Leukeran held 01/18/20 - 08/10/20 and 10/2021-11/29/23 due to declining WBC and side effects. From June 2012 to November 2012 Leukeran 4 mg daily (WBC had increased to 174K, in November 2012 WBC count down to 25 K) From July 2014 to September 2014 restarted Leukeran 4 mg daily, dose was decreased to 2 mg dailyon 09/02/2014 (elevated WBC and anemia) From June 2016 to 03/19/2017 Leukeran 2 mg daily (WBC up to 145 K) He was started on ibrutinib because of the significant elevation in the white cell count on 07/30/2019. Because of the toxicity including joint pain, patient refused to continue ibrutinib or change to any other medication. Was started on Lukran again. Oncologic History : 83-year-old male with a history of chronic lymphocytic leukemia was diagnosed in 2003. He has a stage 0 B-cell chronic lymphocytic leukemia. Currently he is under observation. 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 Clinically patient is doing very well. FISH Results: Abnormal, POSITIVE for heterozygous deletion of 13q14 (DLEU). Flow cytometry from 08/27/2004: Monotypic lymphoid population identified. The monotypic B cells arepositive for CD 19, CD 20, dual CD 19 and CD 23, dual CD 19 and CD5, dual CD 19 and CD 43. Absence of detectable surface immunoglobulin light chains. Cells are negative for CD 10 and CD 38 as well asFMC7. The findings are consistent with B-cell CLL IMMUNOGLOBULIN QUANT 08/17/2018 IGG 700 - 1,600 mg/dL 739 IGA 70 - 400 mg/dL 119 IGM 40 - 230 mg/dL 29 Abnormally low IgVH MUTATION MUTATED He was also seen by Dr. Abhay Pierre of [facility] for 2nd opinion and he recommended to continue ibrutinib. He stop the ibrutinib because of the increase in the white cell count and tookchlorambucil which was available to him from the previous treatment. Interval History: Overall clinically he is stable without any new symptoms complain. He continued taking Leukeran 2 mg with good tolerance and without any significant side effects toxicity. He denies any fever, night sweats, chest pain, palpitation abdominal pain, nausea, vomiting, weight loss, bleeding. LABS/IMAGING: Results for orders placed or performed in visit on 05/31/24 COMPREHENSIVE METABOLIC PANEL Result Value Ref Range BUN 19 6 - 20 mg/dL CREATININE 1.3 (H) 0.6 - 1.2 mg/dL EGFR 53 (L) >=60 mL/min SODIUM 145 135 - 146 mmol/L POTASSIUM 4.3 3.5 - 5.1 mmol/L CHLORIDE 109 (H) 98 - 107 mmol/L CO2 26 22 - 32 mmol/L ANION GAP 10 7 - 15 mmol/L GLUCOSE 96 70 - 120 mg/dL Albumin 4.3 3.8 - 5.0 g/dL AST 21 10 - 50 U/L Alkaline Phosphatase 78 35 - 130 U/L Bilirubin, Total 0.5 <=1.2 mg/dL CALCIUM 9.1 8.4 - 10.2 mg/dL Protein 6.3 6.0 - 8.3 g/dL ALT <5 (L) 10 - 50 U/L CBC Result Value Ref Range WBC 21.40 (H) 4.00 - 10.80 K/uL RBC 3.58 4.50 - 5.25 M/uL HGB 11.3 (L) 14.0 - 16.8 g/dL HCT 36.0 (L) 40.0 - 48.4 % MCV 100.6 82.0 - 99.5 fL MCH 31.6 27.0 - 34.0 pg MCHC 31.4 32.0 - 36.0 g/dL RDW 14.3 11.5 - 15.5 % PLT 99 (L) 140 - 400 K/uL MPV 9.2 6.6 - 11.1 fL DIFFERENTIAL, TECHNOLOGIST REVIEW Result Value Ref Range WBC 21.40 (H) 4.00 - 10.80 K/uL Neutrophils % 14.0 (L) 40.0 - 75.0 % Lymphocytes % 81.0 (H) 18.0 - 42.0 % Monocytes % 2.0 1.0 - 11.0 % Eosinophils % 3.0 0.0 - 6.0 % Absolute Neutrophils 3.00 1.80 - 7.70 K/uL Absolute Lymphocytes 17.33 (H) 1.00 - 4.80 K/uL Absolute Monocytes 0.43 0.00 - 1.10 K/uL Absolute Eosinophils 0.64 0.00 - 0.70 K/uL nRBCs Reactive Lymphocytes Present (A) None Seen Smudge Cells Present (A) None Seen *Note: Due to a large number of results and/or encounters for the requested time period, some results have not been displayed. A complete set of results can be found in Results Review. Recent blood test done on 05/31/2024 and the results are all in acceptable range with WBC count 21.4, hemoglobin 11.3 and platelet count 93286. Absolute lymphocyte counts are 17.3 and neutrophil 3000. REVIEW OF SYSTEMS: General: No Fever, chills, night sweats, or weight loss. HEENT: No change in visual acuity, blurred or double vision. No epistaxis, facial pain, nasal discharge or change in hearing. Denies dysphagia, no muscosal ulceration, or sores noted. Cardiovascular: No chest pain, SANCHEZ, or palpitations Respiratory: No shortness of breath, cough, hemoptysis, or pleuritic chest pain Gastrointestinal: No abdominal pain, nausea, vomiting, diarrhea, rectal pain or bleeding Genitourinary: Denies Hematuria or dysuria Psychiatric: No vegetative signs of depression Endocrine: No symptoms of hypothyroidism or hyperglycemia Hematologic: No bleeding or lymph nodes noted As mentioned above, all of the systems were reviewed in full and are unremarkable. 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 Mri 01/14/2007 Mri done at [facility] Chronic kidney disease, stage 3a ([facility]) 01/16/2021 Per CKD protocol Chronic lymphocytic leukemia ([facility]) 02/25/2005 Complete heart block ([facility]) 01/06/2023 Dyslipidemia, goal to be determined History of 2019 novel coronavirus disease (COVID-19) 05/07/2022 HTN, goal to be determined Hypertension, chronic,unspecified HYPERCALCEMIA Hyperparathyroidism ILD (interstitial lung disease) ([facility]) Other chronic sinusitis 03/27/2005 Pneumonia Primary osteoarthritis involving multiple joints Pulmonary arterial hypertension ([facility]) SLEEP APNEA NOS 06/01/2001 Current Outpatient Medications Medication Sig Dispense Refill [...] 0.1 % Nasal Solution (Astelin) Administer 1 [place] into nostril in the morning and 1 [place] before bedtime. 30 mL 12 Azithromycin 500 [...] 1 Capsule before bedtime. 60 Capsule 5 Chlorambucil 2 MG Oral Tablet (Leukeran) Take 1 Tablet by mouth in the morning. Take medication on an empty stomach.. 30 Tablet 5 Trelegy Ellipta 200-62.5-25 MCG/ACT Aerosol Powder Breath Activated (Fqcasozbekc-Mchnhszwzybv-Umslbsdmnz) Inhale 1 Puff by mouth in the [...] BY MOUTH EVERY MORNING 30 Tablet 5 Current Facility-Administered Medications Medication Dose Route Frequency Provider Last Rate Last Admin Albuterol Sulfate (Proventil) (2.5 MG/3ML) 0.083% inhalation solution 2.5 mg 2.5 mg Nebulizer Once PRN 2.5 mg at 02/23/24 1014 Social History Tobacco Use Smoking status: Never Smokeless tobacco: Never Vaping Use Vaping status: Never Used Substance Use Topics Alcohol use: Yes Comment: occassionally Drug use: No Review of patient's allergies indicates: Allergen Reactions Heparin ?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 Vitals reviewed. HEENT: No oral or pharyngeal masses, ulceration or thrush noted, no sinus tenderness. Neck is supple with no thyromegaly or JVD noted. Lymph Nodes: No lymphadenopathy noted in the occipital, pre and post auricular, cervical, supra andinfraclavicular, axillary, epitrochlear, inguinal, and popliteal region. Lungs/Thorax: Clear to auscultation, no accessory muscles of respiration being used. Heart: Regular rate and rhythm, normal S1, S2 Abdomen: Soft, nontender, bowel sounds present, no appreciable hepatosplenomegaly, no palpable masses Extremeties: Good pulses bilaterally, no peripheral edema. ASSESSMENT: 84-year-old male with history significant for chronic lymphocytic leukemia was diagnosed in 2003. 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 He was treated in the past with ibrutinib but it was discontinued because of toxicity and patient refused to continue the treatment or change to some other medicines. He wanted to take the Lukran and refused to take any other medicine. He was informed that this is not the recommended treatment. He was treated with Leukran with good control of white cell count. He had issues with COVID infection and sinus infection. He underwent TAVR procedure due to symptomatic severe aortic stenosis and also placement of the pacemaker. He also has multiple skin squamous cell carcinoma and recently it was resected from left upper arm on 05/10/2024. Because of the increasing WBC count, Leukeran was resume. Overall clinically is stable without any new symptoms complain. Blood counts are in stable range. He continued taking Lupron with stable counts including stable white cell counts, hemoglobin and platelet counts. Electrolytes and LFTs are in acceptable range. Discussed with the patient about diagnosis reviewed all the available blood test result with him. PLAN: Continue current treatment. He will continue to have CBC done on every other week basis. He will return clinic follow-up in 3 months with CBC and CMP. The patient voiced understanding of all of the above. All questions and concerns were addressed in an apparently satisfactory manner. Lucien Jamil MD (This note was completed using the dictation program Fluency Direct. As such, there may be misspellings, word substitutions, or other variations that should not change the essence of the clinical content of this encounter note. If there is need for further clarification, please direct questions to me.) documented in this encounter Nursing Notes * Ashli Khan MED ASSIST - 06/02/2024 9:26 AM EDT Patient identifed by name and birthdate Do you have any concerns about pain management for today's visit? Yes. Patient instructed to discuss pain concerns with provider during the visit today Living Will or Advance Directive for Health Care as noted on the problem list. [facility] is a way you can talk to your provider on line through e-mail. Would you like to sign up? I can activate it for you? NO Filed Vitals: 06/02/24 0923 BP: 125/67 Pulse: 81 Temp: 36.4 C (97.5 F) TempSrc: Tympanic SpO2: 96% Weight: 78.9 kg (174 lb) Patient was instructed to not get up on the exam table/exam chair until directed and assisted by their provider; patient is to remain seated in the chair/ wheelchair/ exam table/ exam chair for fall prevention and safety reasons. Patient is aware to have assistance to step down off exam table/exam chair with personnel. Patient voiced full comprehension of instructions. documented in this encounter Plan of Treatment Upcoming Encounters Date Type Department Care Team (Late st Contact Info) Description 06/30/2024 9:00 AM EST Pharmacy Pharmacy Hematology Oncology [place] [address] [place] [address] [facility], [facility] Hem/Onc [address] [place] [address] 09/06/2024 2:30 PM EST Office Visit Hematology/Oncology [facility] [address] [facility] [place] [phone] Lucien Jamil MD [address] [facility] [place] [address] 11/22/2024 11:00 AM EDT Office Visit Cardiology, [facility] [address] [facility] [place] [address] Cuauhtemoc Jo DO [address] [facility] [place] [address] 11/30/2024 12:00 PM EDT Office Visit Pulmonary Medicine, [facility] [address] [facility] [place] [address] Phillip Hernandez MD [address] [place] [address] 12/03/2024 11:15 AM EDT Office Visit Otolaryngology [facility] [address] [facility] [place] [address] Susanne Thrasher MD [address] [facility] [place] [address] Scheduled Orders Name Type Priority Associated Diagnoses Orde r Schedule CBC WITH WBC DIFFERENTIAL Lab Routine CLL (chronic lymphocytic leukemia) (HCC) Expected: 09/14/2024, Expires: 03/22/2025 COMPREHENSIVE METABOLIC PANEL Lab Routine CLL (chronic lymphocytic leukemia) (HCC) Expected: 09/14/2024, Expires: 03/22/2025 Health Maintenance Due Date Last Done Comments COVID-19 Vaccine (#1) 02/07/1945 Zoster Vaccines (1 of 2) 02/07/1959 Adult Wellness Visit 02/07/2006 CKD PHOS USE SMARTSET [id number] 11/29/2023/02/2023, 11/07/2022, 10/16/2021, Additional history exists Influenza Vaccine (FLU shot) (#1) 2024 Albumin/Creatinine Ratio 05/22/2024 023, 05/09/2022, 09/17/1999 Depression Screening 05/22/2024 05/22/2023 GFR 11/29/2024 05/31/2024, 10/11/2023, 04/22/2024, Additional history exists DTap/Tdap Vaccines (4 - Td or Tdap) 12/01/2024 12/01/2014, 12/01/2014, 12/01/2014 CKD HGB USE SMARTSET [id number] 05/31/202505/31, 05/31/2024, 05/07/2024, Additional history exists O2 [...] this encounter Medical Devices Implanted Type Area Roll Skinner Device Identifier Shelf Expiration Date Model / Serial / Lot Valve Korey 3 Ultra 26mm - [id number] Implanted:Qty: 1 on 12/24/2022 by Jesse Tanner MD at [facility] [employer] [id number] 07/03/2023 [id number] / / Lead Pace Selectsecure [id number] - [id number] Implanted:Qty: 1 on 12/26/2022 by Keily Kelley IV, MD at [facility] [employer] : ALYSON [id number] 11/19/2024 [id number] / [id number] / [id number] Lead Novus Bipolar 52cm - [id number] Implanted:Qty: 1 on 12/26/2022 by Keily Kelley IV, MD at [facility] [employer] : ALYSON [id number] 10/10/2024 [id number] / [id number] / [id number] Pacemaker Bonduel Xt [facility] - [id number] Implanted:Qty: 1 on 12/26/2022 by Keily Kelley IV, MD at [facility] [employer] [id number] 05/17/2024 [id number] / [id number] / [id number] documented as of this encounter Visit Diagnoses [...] Advance Directives occurred with: Patient Care Teams [facility] Director Relationship Specialty Start Date End Date Vincent Slaughter MD [address] [facility] [place] [address] PCP - General Internal Medicine 05/22/21 documented as of this encounter
--- OUTSIDE RECORDS SUMMARY | 2024-08-26 09:40 | External Medical Summary | Summary of Care ---
Author Name Unknown Organization [facility] Address [address] [place] [address] Phone [phone] Care Team Providers Care Pattern Fitter Name Role Phone Vincent Slaughter MD Primary Care Provider + Reason for Visit * Reason Comments Follow Up Encounter Details Date Type Department Care Team (Late st Contact Info) Description 05/26/2024 10:00 AM EDT Office Visit Pulmonary Medicine, [facility] [address] [facility] [place] [address] Phillip [facility] [address] [facility] [address] Dyspnea on exertion* Allergies Active Allergy Reactions Criticality Noted Date Comments Heparin High 01/01/2023 ?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 30 mL 12 11/22/2022 Active [...] as of this encounter (statuses as of 05/26/2024) Active Problems Problem Noted Date Diagnosed Date [...] infarct. Mri 01/14/2007 Mri done at [facility] Statin intolerance 07/27/2007 Overview: Hepatitis with Zocor Other sleep apnea 06/01/2001 documented as of this encounter (statuses as of 05/26/2024) Resolved Problems Problem Noted Date Diagnosed Date [...] infarct. Mri 01/14/2007 Mri done at [facility] Cerebrovascular event, ill-d efined, within last 8 [...] as of this encounter (statuses as of 05/26/2024) Immunizations Name Administration Dates Next Due Pneumococcal [...] Sign Reading Time Taken Comments Blood Pressure 142/88 05/26/2024 10:18 AM EDT Pulse 73 05/26/2024 10:18 AM EDT Temperature 36.2 C (97.2 F) 05/26/2024 1 0:18 AM EDT Respiratory Rate 22 05/26/2024 10:1 8 AM EDT Oxygen Saturation 96% 05/26/2024 10: 19 AM EDT ra, amb Inhaled Oxygen Concentration - - Weight 78.4 kg (172 lb 12.8 oz) 024 10:18 AM EDT Height 160 cm (5' 3") 05/26/2024 10:18 AM EDT Body Mass Index 30.61 05/26/2024 10:18 AM EDT documented in this [...] as of this encounter Progress Notes * Phillip Hernandez MD - 05/26/2024 10:33 AM EDT 05/26/2024 Pulmonary Medicine, [address] [place] [address] [id number] [place] Tirado 1940 male 84 year old Attending Physician Documentation: 84-year-old male Lifetime nonsmoker 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 Holt Current bronchodilator regimen: Rescue inhaler albuterol used only as needed Compliant with Nasacort and montelukast Physical examination: Alert, awake, no distress, STILLAGUAMISH Class 2 throat No JVD Adequate air entry, scattered coarse wheezing, no dullness S1, S2, no murmur Soft, nontender abdomen No lower extremity edema Assessment: Chronic sinusitis Upper airway cough Post COVID I LD CKD 3 CLL Obesity BMI 30 Patient maintains a Minimalist approach to healthcare Using only albuterol HFA as needed No interested in LABAs Call with change in Resp symptom status C/w Montelukast and Nasacort F/u 6 months Follow Up: Return in about 6 months (around 11/24/2024) for Clinic Visit. 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 Holt Current bronchodilator regimen: Rescue inhaler albutero Follow Up: Return in about 6 months (around 11/24/2024) for Clinic Visit. | For: Clinic Visit | Check-out note: l used only as needed Compliant with Nasacort and montelukast Assessment: Chronic sinusitis Upper airway cough Post COVID I LD CKD 3 CLL Obesity BMI 30 Patient maintains a Minimalist approach to healthcare Using only albuterol HFA as needed No interested in LABAs Call with change in Resp symptom status C/w Montelukast and Nasacort F/u 6 months Phillip Hernandez MD Data review: Following reports, and data as outlined below was personally reviewed and interpreted by myself. Clinician interpretation of Pulmonary Function Tests: 02/23/2024: Baseline spirometry is normal. Following bronchodilator, there is no significant change. The flow volume loop is unremarkable. When compared to prior pulmonary function testing performed 05/09/2022, there has been significant improvement in spirometry. Clinician interpretation of Chest X-ray: 01/06/2024: Two-view chest x-ray: Limited inspiratory result with mild bibasilar atelectasis. Mild elevation of the left hemidiaphragm. Scattered tiny round radiopaque debris, likely in the soft tissues. Partially imaged right shoulder prosthesis. Prominent interstitial markings bilaterally. Pacemaker in place. Cardiomediastinal silhouette likely top-normal in size. When compared to prior chest x-ray 02/03/2023, there has been little change. Clinician interpretation of Chest CT scan: 02/23/2024: Chest CT without contrast: IMPRESSION 1. Stable mosaic attenuation on expiratory images, bronchial wall thickening, and mild bronchiectasis in the lower lobes. Findings are consistent with chronic small airway disease. 2. Stable bibasilar subpleural reticular opacities with scatteredpunctate hyperdensities suggesting sequela of chronic aspiration. Interstitial lung disease/hypersensitivity pneumonitis remains a differential consideration although less likely. 3. Stable enlarged mediastinal nodes. 4. Stable 4.6 centimeter ascending aortic aneurysm. 5. Dilated pulmonary trunk sug gestive of pulmonary hypertension. 6. Stable cardiomegaly and mall to moderate pericardial effusion. 7. Stable lung nodules. No new or enlarging lung nodule." -- Mosaicism. Pulmonary vascular congestion. Interlobular septal thickening in the lower lung enriquez. Bibasilar atelectasis. Possibly developing mild infiltrate at the right > left base. Scattered bibasilar soft tissue density nodules. Mild bronchiectasis, worst in the right middle lobe. Enlarged lymph nodes in the 4R, 4 L, 10R, 11L lymph nodes. Radiopaque small/tiny densities in the subcutaneous tissue. When compared to prior chest CT 07/10/2022, there has been no significant change (though lymph node 4R is slightly increased in size on the present film while lymph node 7 is normalized in size on the present film) Echocardiogram: 03/18/2024: Sinus rhythm with PVCs during the exam. LV wall thickness mildly increased, concentric.Septal motion abnormal consistent with RV pacemaker. Regional LV wall motion otherwise normal. LV EF 55-59%. Grade 2 diastolic dysfunction. Status post TAVR. Aortic valve prosthesis systolic gradients are normal for this type prosthesis. Trivial perivalvular aortic prosthesis regurgitation. Mild tricuspid regurgitation. Estimated PA systolic pressure 63 mm. RV cavity size and systolic function normal. Atrial size normal. No pericardial effusion. Tricuspid regurgitant max velocity 339.6 centimete rs/second. PA acceleration time 0.10 seconds Subjective CC: Chief Complaint Patient presents with Follow Up HPI: Nursing Notes: Kimberlee, Evy L, MAINTENANCE MACHINE REPAIRER 05/26/24 1024 Addendum Pt for f/u ILD and PHTN. MMRC Dyspnea Scale = 2 (On level ground, I walk slower than people of the same age because of breathlessness or have to stop for breath when walking at my own) PULMONARY HYPERTENSION WHO CLASSIFICATION 2 (Patient with pulmonary hypertension resulting in slight limitation of physical activity. They are comfortable at rest. Ordinary physical activity results in undue fatigue or dyspnea, chest pain, or heart syncope) Interm History/Respiratory Symptoms Cough: occasional, white and foamy phlegm Hemoptysis: no Sinus Symptoms: occasional drainage Hospitalizations: no ED Trips: no Triggers: "vegetation" Nocturnal: no problems, sleeps with head slightly elevated CPAP/BiPAP/O2: no DME Supplier: n/a Flu Vaccine: declined Pneumovax: 2004 Prevnar: 2016 COVID 19: no Objective Filed Vitals: 05/26/24 1018 05/26/24 1019 BP: 142/88 Pulse: 73 Resp: 22 Temp: 36.2 C (97.2 F) TempSrc: Tympanic SpO2: 97% 96% Weight: 78.4 kg (172 lb 12.8 oz) Height: 1.6 m (5' 3") Exam: Const: No signs of acute distress present. Head/Face: Normal on inspection. Eyes: Conjunctivae clear. Pupils equal round and reactive to light. ENMT: Oropharynx: No erythema, exudate or masses. Posterior pharynx is normal. Neck: Supple and symmetric. Resp: Respiratory examination as outlined above CV: Rate is regular. Rhythm is regular. No heart murmur appreciated. Extremities: No edema of the lower limbs bilaterally. Skin: Skin is warm and dry. Neuro: Coordination normal. No involuntary movement. Psych: Patient's attitude is cooperative. Mood is normal. Affect is normal. Tests reviewed with the patient: CT CHEST WO CONTRAST Result Date: 02/24/2024 IMPRESSION 1. Stable mosaic attenuation on expiratory images, bronchial wall thickening, and mild bronchiectasis in the lower lobes. Findings are consistent with chronic small airway disease. 2. Stable bibasilar subpleural reticular opacities with scattered punctate hyperdensities suggesting sequela of chronic aspiration. Interstitial lung disease/hypersensitivity pneumonitis remains a differential consideration although less likely. 3. Stable enlarged mediastinal nodes. 4. Stable 4.6 centimeter ascending aortic aneurysm. 5. Dilated pulmonary trunk suggestive of pulmonary hypertension. 6. Stable cardiomegaly and mall to moderate pericardial effusion. 7. Stable lung nodules. No new or enlarging lung nodule. XR CHEST 2 VIEWS Result Date: 01/06/2024 IMPRESSION No evidence of acute cardiopulmonary disease. Available Radiologic data was reviewed by me in PACS. The images were shown to the patient and findings were discussed with the patient. HOME MEDICATIONS: Losartan Potassium 50 MG Oral Tablet (Cozaar) Fexofenadine HCl 180 MG Oral Tablet (Yolanda) Montelukast Sodium 10 MG Oral Tablet (Singulair) Metoprolol Succinate ER 25 MG Oral Tablet Extended Release 24 Hour (toPROL XL) Trelegy Ellipta 200-62.5-25 MCG/ACT Aerosol Powder Breath Activated (Scrgeisfisn-Ckmomvkndezg-Usitsojuuy) Chlorambucil 2 MG Oral Tablet (Leukeran) Doxycycline Monohydrate 100 MG Oral Capsule Triamcinolone Acetonide 0.1 % External Ointment (Aristocort) Allopurinol 100 MG Oral Tablet (Zyloprim) Colchicine 0.6 MG Oral Tablet Azithromycin 500 MG Oral Tablet (Zithromax) Azelastine HCl 0.1 % Nasal Solution (Astelin) oxyCODONE-Acetaminophen 5-325 MG Oral Tablet (Percocet) Spacer/Aero-Holding Chambers Device ProAir HFA 108 (90 Base) MCG/ACT Inhalation Aerosol Solution Triamcinolone Acetonide 55 MCG/ACT Nasal Aerosol aspirin 81 MG chewable tablet diphenhydrAMINE HCl 25 MG Oral Tablet Albuterol Sulfate (Proventil) (2.5 MG/3ML) 0.083% inhalation solution 2.5 mg ROS: No reported history of Hemoptysis, Hematemesis, Melena No reported history of Dysuria, Hematuria, Flank Pain No reported history of chronic headache, seizures No reported history of Fall or trauma . No reported history of recent change in weight or appetite. 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 Mri 01/14/2007 Mri done at [facility] Chronic kidney disease, stage 3a (HCC) 01/16/2021 Per CKD protocol Chronic lymphocytic leukemia (HCC) 02/25/2005 Complete heart block (HCC) 01/06/2023 Dyslipidemia, goal to be determined History of 2019 novel coronavirus disease (COVID-19) 05/07/2022 HTN, goal to be determined Hypertension, chronic,unspecified HYPERCALCEMIA Hyperparathyroidism ILD (interstitial lung disease) ([facility]) Other chronic sinusitis 03/27/2005 Pneumonia Primary osteoarthritis involving multiple joints Pulmonary arterial hypertension (HCC) SLEEP APNEA NOS 06/01/2001 Past Surgical History: Procedure Laterality Date COLONOSCOPY 09/10/2004 Normal repeat 3-5 years COLONOSCOPY, DIAGNOSTIC (RECTUM) 05/28/2010 normal colon exam repeat in 5 years COLONOSCOPY, DIAGNOSTIC (RECTUM) 09/27/2014 normal/[facility] COLONOSCOPY, SURGICAL 02/2000 cloacogenic polyp: removed by Dr Zuñiga CORONARY ANGIOGRAPHY W/LEFT HEART CATH Right 11/28/2022 CORONARY ANGIOGRAPHY W/LEFT HEART CATH [place] Adolfo Pierce [place] [facility] [place] PARATHYROID GLANDS 1998 Parathyroidectomy FRACTURE NOS 2002 Fractures L leg/bone graft INJECTION OF EYE DRUG Right 07/09/2016 # 1 Eylea OD, INJECTION OF EYE DRUG Right 09/19/2016 # 2 Eylea OD, INJECTION OF EYE DRUG Right 11/07/2016 # 1 Triesence OD, Dr. Jc INSERT/REPLACE PACEMAKER,ATRIAL/VENTRICULAR Left 12/26/2022 NEW DDD PACEMAKER IMPLANT performed by Keily Kelley IV, [place] at [facility] LUMBAR SPINE FUSION, POST INTERBODY Dr. Estrada lower back MISCELLANEOUS ORDER (HS ONLY) Right 07/09/2016 Eylea OD Consent signed, MISCELLANEOUS ORDER (HS ONLY) Right 11/07/2016 Triesence OD Consent Signed, Dr. Babita [place], 1ST STAGE; FACE, HANDS, FEET, NERVE "one left side of throat and two on my head" OTHER 06/2005 Dr. Reeder; nasal surgery OTHER 11/2006 left shoulder arthroscopy OTHER (INFORMATION) ACT 112 SIGNED 12/04/22 DR. JC REMOVAL OF APPENDIX 05/29/2010 Appendectomy- [facility] 05/29/2010 REPLACE AORTIC VALVE, PERCUTANEOUS FEMORAL N/A 12/24/2022 REPLACE AORTIC VALVE, PERCUTANEOUS FEMORAL performed by Jesse Tanner MD at [facility] REPLACE AORTIC VALVE, PERCUTANEOUS FEMORAL N/A 12/24/2022 REPLACE AORTIC VALVE, PERCUTANEOUS FEMORAL performed by Alin Be MD at [facility] TREAT LOCALIZED RETINA LESION Right 12/12/2016 Focal Laser procedure of the RIGHT eye; Dr. 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 No mold. 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 MMRC Dyspnea Scale = 2 (On level ground, I walk slower than people of the same age because of breathlessness or have to stop for breath when walking at my own) PULMONARY HYPERTENSION WHO CLASSIFICATION 2 (Patient with pulmonary hypertension resulting in slight limitation of physical activity. They are comfortable at rest. Ordinary physical activity results in undue fatigue or dyspnea, chest pain, or heart syncope) Interm History/Respiratory Symptoms Cough: occasional, white and foamy phlegm Hemoptysis: no Sinus Symptoms: occasional drainage Hospitalizations: no ED Trips: no Triggers: "vegetation" Nocturnal: no problems, sleeps with head slightly elevated CPAP/BiPAP/O2: no DME Supplier: n/a Flu Vaccine: declined Pneumovax: 2005 Prevnar: 2016 COVID 19: no documented in this encounter Plan of Treatment Upcoming Encounters Date Type Department Care Team (Late st Contact Info) Description 05/28/2024 1:00 PM EDT Office Visit Dermatology [facility] [address] [place] [address] Vincent Buck MD [address] [facility] [place] [address] 06/02/2024 9:30 AM EDT Office Visit Hematology/Oncology [facility] [address] [place] [phone] Lucien Jamil MD [address] [facility] [place] [address] 06/30/2024 9:00 AM EST Pharmacy Pharmacy Hematology Oncology [facility] [address] [place] [address] [facility] Hem/Onc [address] [place] [address] 09/27/2024 3:30 PM EST Office Visit Cardiology [facility] [address] [facility] [place] [address] Cuauhtemoc Jo DO [address] [facility] [place] [address] 11/22/2024 11:00 AM EDT Office Visit Cardiology [facility] [address] [facility] [place] [address] Cuauhtemoc Jo DO [address] [place] [address] 11/30/2024 12:00 PM EDT Office Visit Pulmonary Medicine, [facility] [address] [place] [address] Phillip Hernandez MD [address] [place] [address] 12/03/2024 11:15 AM EDT Office Visit Otolaryngology [facility] [address] [place] [address] Susanne Thrasher MD [address] [place] [address] Health Maintenance Due Date Last Done Comments COVID-19 Vaccine (#1) 02/07/1945 Zoster Vaccines (1 of 2) 02/07/1959 Adult Wellness Visit 02/07/2006 CKD PHOS USE SMARTSET 20454 11/29/202311/03, 11/07/2022, 10/16/2021, Additional history exists Influenza Vaccine (FLU shot) (#1) 2024 Albumin/Creatinine Ratio 05/22/2024 023, 05/09/2022, 09/17/1999 Depression Screening 05/22/2024 05/22/2023 GFR 11/05/2024 05/07/2024, 04/04, 04/06/2024, Additional history exists DTap/Tdap Vaccines (4 - Td or Tdap) 12/01/2024 12/01/2014, 12/01/2014, 12/01/2014 CKD HGB USE SMARTSET 97201 05/07/202505/07, 05/07/2024, 04/22/2024, Additional history exists O2 ASSESSMENT COMPLETED IN PAST YEAR FOR COPD 05/26/2025 05/26/2024 Pneumococcal Vaccine: 65+ Years Completed 07/01/2017, 06/26/2016, [...] this encounter Medical Devices Implanted Type Area Cargo Router Device Identifier Shelf Expiration Date Model / Serial / Lot Valve Korey 3 Ultra 26mm - [id number] Implanted:Qty: 1 on 12/24/2022 by Jesse Tanner MD at [facility] [employer] [id number] 07/03/2023 [id number] / / Lead Pace Select[employer] 3830-69 - [id number] Implanted:Qty: 1 on 12/26/2022 by Keily Kelley IV, MD at [facility] [employer] : CRM [id number] 11/19/2024 [id number] / [id number] / [id number] Lead Novus Bipolar 52cm - [id number] Implanted:Qty: 1 on 12/26/2022 by Keily Kelley IV, MD at [facility] [employer] : CRM [id number] 10/10/2024 [id number] / [id number] / [id number] Pacemaker [place] Xt Dr Mri [facility] - [id number] Implanted:Qty: 1 on 12/26/2022 by Keily Kelley IV, MD at [facility] [employer] [id number] 05/17/2024 [id number] / [id number] / [id number] documented as of this encounter Visit Diagnoses Diagnosis Dyspnea on exertion- Primary Other dyspnea and respiratory abnormality documented in this encounter Advance Directives * Full Code (Latest Code Status on File) Date Activated Date Inactivated Comments 12/24/2022 11:13 AM 12/27/2022 10:05 PM This order reflects the patients wishes and were consensually agreed upon. Question Answer Comments Discussion of Advance Directives occurred with: Patient Care Teams Pattern Fitter Relationship Specialty Start Date End Date Vincent Slaughter MD [address] [place] [address] PCP - General Internal Medicine 05/22/21 documented as of this encounter
--- OUTSIDE RECORDS SUMMARY | 2024-08-26 09:40 | External Medical Summary ---
Author Name Unknown Address Unknown Organization K09:[facility] [address] [place] [address] Laboratory Report Ordering Provider Test Date Status KAIM CHAPMAN 05/31/2024 10:10:09 Final Observation Date Value Abnormality Reference (Units ) Status BUN 05/31/2024 10:10:09 19 6-20 (mg/dL) Final Creatinine 05/31/2024 10:10:09 1.3 Above high normal 0.6-1.2 (mg/dL) Final Glomerular filtration rate/1.73 sq M.predicted [Volume Rate/Area] in Serum, Plasma or Blood by Creatinine-based formula (CKD-EPI) 05/31/2024 10:10:09 53 Below low normal >=60 (mL/min) Final eGFR is calculated based on the CKD-EPI 2020 equation. Sodium 05/31/2024 10:10:09 145 135-146 (m mol/L) Final Potassium 05/31/2024 10:10:09 4.3 3.5-5.1 (m mol/L) Final Cl 05/31/2024 10:10:09 109 Above high normal 98 -107 (mmol/L) Final CO2 05/31/2024 10:10:09 26 22-32 (mmo l/L) Final Anion gap 05/31/2024 10:10:09 10 7-15 (mmol /L) Final Glucose 05/31/2024 10:10:09 96 70-120 (mg /dL) Final Albumin 05/31/2024 10:10:09 4.3 3.8-5.0 (g /dL) Final AST (Aspartate aminotransferase) 05/31/2024 10:10:09 21 10-50 (U/L) Fin al Alk Phos 05/31/2024 10:10:09 78 35-130 (U/ L) Final Bilirubin, Total 05/31/2024 10:10:09 0.5 <=1 .2 (mg/dL) Final Calcium 05/31/2024 10:10:09 9.1 8.4-10.2 ( mg/dL) Final Protein 05/31/2024 10:10:09 6.3 6.0-8.3 (g /dL) Final ALT (Alanine aminotransferase) 05/31/2024 10:10:09 <5 Below low normal 10-50 (U/L) Final Performing Location [facility] [address] [place] [address]
--- OUTSIDE RECORDS SUMMARY | 2024-08-26 09:40 | External Medical Summary ---
Author Name Unknown Address Unknown Organization K09:[facility] [place] [address] Laboratory Report Ordering Provider Test Date Status KAMI CHAPMAN 05/31/2024 10:10:09 Final 2 times a week for 3-6 weeks , then every 1-2 weeks. Observation Date Value Abnormality Reference (Units ) Status WBC, Total 05/31/2024 10:10:09 21.40 Above high normal 4 .00-10.80 (K/uL) Final RBC 05/31/2024 10:10:09 3.58 4.50-5.25 (M/uL) Final Hemoglobin 05/31/2024 10:10:09 11.3 Below low normal 14 .0-16.8 (g/dL) Final HCT 05/31/2024 10:10:09 36.0 Below low normal 40. 0-48.4 (%) Final MCV 05/31/2024 10:10:09 100.6 82.0-99.5 (fL) Final MCH 05/31/2024 10:10:09 31.6 27.0-34.0 (pg) Final MCHC 05/31/2024 10:10:09 31.4 32.0-36.0 (g/dL) Final RDW 05/31/2024 10:10:09 14.3 11.5-15.5 (%) Final Platelets 05/31/2024 10:10:09 99 Below low normal 140 -400 (K/uL) Final MPV 05/31/2024 10:10:09 9.2 6.6-11.1 ( fL) Final Performing Location [facility] [place] [address]
--- OUTSIDE RECORDS SUMMARY | 2024-08-26 09:40 | External Medical Summary | Summary of Care ---
Author Name Unknown Organization [facility] Address [address] [place] [address] Phone [phone] Care Team Providers Care Membership Assistant Name Role Phone Vincent Slaughter MD Primary Care Provider + Reason for Visit * Reason Comments Outpatient Testing Encounter Details Date Type Department Care Team (Late st Contact Info) Description 05/31/2024 10:20 AM EDT Laboratory Laboratory [facility] [address] [place] [phone] [facility] Scenery [address] [place] [address] CLL (chronic lymphocytic leukemia) (HCC) Allergies Active Allergy Reactions Criticality Noted Date Comments 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 30 mL 12 11/22/2022 Active [...] as of this encounter (statuses as of 05/31/2024) Active Problems Problem Noted Date Diagnosed Date [...] hemisphere infarct. Mri 01/14/2007 Mri done at [facility] Statin intolerance 07/27/2007 Overview: Hepatitis with Zocor Other sleep apnea 06/01/2001 documented as of this encounter (statuses as of 05/31/2024) Resolved Problems Problem Noted Date Diagnosed Date [...] hemisphere infarct. Mri 01/14/2007 Mri done at [facility] Cerebrovascular event, ill-d efined, within last 8 [...] as of this encounter (statuses as of 05/31/2024) Immunizations Name Administration Dates Next Due Pneumococcal [...] No 12/24/2022 documented as of this encounter Plan of Treatment Upcoming Encounters Date Type Department Care Team (Late st Contact Info) Description 05/31/2024 10:30 AM EDT Office Visit MOHS Surgery [facility] [address] [facility] [place] [address] Candace Aguilar MD 200 [place] [address] Arrived 06/02/2024 9:30 AM EDT Office Visit Hematology/Oncology [facility] [phone] Lucien Jamil MD 200 [facility] [place] [address] 06/30/2024 9:00 AM EST Pharmacy Pharmacy Hematology Oncology [facility] [address] [place] [address] [facility] Hem/Onc [address] [place] [address] 09/27/2024 3:30 PM EST [facility] [address] [address] Cuauhtemoc Jo DO [address] [place] [address] 11/22/2024 11:00 AM EDT Office Visit CardiologyJoeannie Do [place] [address] [place] [address] Cuauhtemoc Jo DO [address] [place] [address] 11/30/2024 12:00 PM EDT Office Visit Pulmonary Medicine, [facility] [address] [place] [address] Phillip Hernandez MD [address] [place] [address] 12/03/2024 11:15 AM EDT Office Visit Otolaryngology [facility] [address] [place] [address] Susanne Thrasher MD [address] [place] [address] Pending Results Name Type Priority Associated Diagnoses Date /Time COMPREHENSIVE METABOLIC PANEL Lab STAT CLL (chronic lymphocytic leukemia) (HCC) 05/31/2024 10:10 AM EDT Health Maintenance Due Date Last Done Comments COVID-19 Vaccine (#1) 02/07/1945 Zoster Vaccines (1 of 2) 02/07/1959 Adult Wellness Visit 02/07/2006 CKD PHOS USE SMARTSET 18117 11/29/202311/03, 11/07/2022, 10/16/2021, Additional history exists Influenza Vaccine (FLU shot) (#1) 2024 Albumin/Creatinine Ratio 05/22/2024 023, 05/09/2022, 09/17/1999 Depression Screening 05/22/2024 05/22/2023 GFR 11/05/2024 05/07/2024, 04/04, 04/06/2024, Additional history exists DTap/Tdap Vaccines (4 - Td or Tdap) 12/01/2024 12/01/2014, 12/01/2014, 12/01/2014 O2 ASSESSMENT COMPLETED IN PAST YEAR FOR COPD 05/26/2025 05/26/2024 CKD HGB USE SMARTSET 40028 05/31/202505/31, 05/31/2024, 05/07/2024, Additional history exists Pneumococcal Vaccine: 65+ Years [...] this encounter Medical Devices Implanted Type Area Core Setter Device Identifier Shelf Expiration Date Model / Serial / Lot Valve Korey 3 Ultra 26mm - [id number] Implanted:Qty: 1 on 12/24/2022 by Jesse Tanner MD at [facility] [employer] [id number] 07/03/2023 [id number] / / Lead Pace Selectsecure 3830-69 - [id number] Implanted:Qty: 1 on 12/26/2022 by Keily Kelley IV, MD at [facility] [employer] : CRM [id number] 11/19/2024 [id number] / [id number] / [id number] Lead Novus Bipolar 52cm - [id number] Implanted:Qty: 1 on 12/26/2022 by Keily Kelley IV, MD at [facility] [employer] : CRM [id number] 10/10/2024 5076- 52 / [id number] / [id number] Pacemaker [place] Xt [address] Orosco [facility] - [id number] Implanted:Qty: 1 on 12/26/2022 by Keily Kelley IV, MD at [facility] [employer] [id number] 05/17/2024 [id number] / [id number] / [id number] documented as of this encounter Procedures Procedure Name Priority Date/Time Associated Diagnosis Comments DIFFERENTIAL, AUTOMATED STAT 05/31/2024 10:10 AM EDT CLL (chronic lymphocytic leukemia) (HCC) CBC STAT 05/31/2024 10:10 AM EDT CLL (chronic lymphocytic leukemia) (HCC) CBC STAT 05/31/2024 10:10 AM EDT CLL (chronic lymphocytic leukemia) (HCC) DIFFERENTIAL, TECHNOLOGIST REVIEW Routine 05/31/2024 10:10 AM EDT CLL (chronic lymphocytic leukemia) (HCC) documented in this encounter Results * (ABNORMAL) DIFFERENTIAL, TECHNOLOGIST REVIEW (05/31/2024 10:10 AM EDT) Pathologist [facility] WBC 21.40(H) 4.00 - 10.80 K/uL 05/31/2024 10:22 AM EDT LABORATORY [place] 56-02 Neutrophils % 14.0(L) 40.0 - 75.0 % 05/31/2024 10:22 AM EDT [facility]ORY [place] 56-02 Lymphocytes % 81.0(H) 18.0 - 42.0 % 05/31/2024 10:22 AM EDT [facility] 56-02 Monocytes % 2.0 1.0 - 11.0 % 05/31/2024 10:22 AM EDT [facility] 56-02 Eosinophils % 3.0 0.0 - 6.0 % 05/31/2024 10:22 AM EDT [facility] 56-02 Absolute Neutrophils 3.00 1.80 - 7.70 K/uL 05/31/2024 10:22 AM EDT [facility]ATORY [place] 56-02 Absolute Lymphocytes 17.33(H) 1.00 - 4.80 K/uL 05/31/2024 10:22 AM EDT [facility] [place] 56-02 Absolute Monocytes 0.43 0.00 - 1.10 K/uL 05/31/2024 10:22 AM EDT [facility] [place] 56-02 Absolute Eosinophils 0.64 0.00 - 0.70 K/uL 05/31/2024 10:22 AM EDT [facility] [place] 56-02 nRBCs 05/31/2024 10:22 AM EDT [facility] [place] 56-02 Reactive Lymphocytes Present(A ) None Seen 05/31/2024 10:22 AM EDT [facility] [place] 56-02 Smudge Cells Present(A ) None Seen 05/31/2024 10:22 AM EDT [facility] 56 Blood Venous blood specimen / Unknown Venipuncture / Unknown 05/31/2024 10:10 AM EDT 05/31/2024 10:10 AM EDT Lucien Jamil MD LAB BLOOD [place] [address] [place] [address] * DIFFERENTIAL, AUTOMATED (05/31/2024 10:10 AM EDT) Blood Venous blood specimen / Unknown Venipuncture / Unknown 05/31/2024 10:10 AM EDT 05/31/2024 10:10 AM EDT Lucien Jamil MD LAB BLOOD ORDERA BLES Performing Organization Address City/[facility]/ZIP Co de Phone Number [address] [place] [address] * (ABNORMAL) CBC (05/31/2024 10:10 AM EDT) WBC 21.40(H) 4.00 - 10.80 K/uL 05/31/2024 10:22 AM EDT [facility] RBC 3.58 4.50 - 5.25 M/uL 05/31/2024 10:22 AM EDT [facility] 56 HGB 11.3(L) 14.0 - 16.8 g/dL 05/31/2024 10:22 AM EDT [facility] 56 HCT 36.0(L) 40.0 - 48.4 % 05/31/2024 10:22 AM EDT [facility] 56 MCV 100.6 82.0 - 99.5 fL 05/31/2024 10:22 AM EDT [facility] 56 MCH 31.6 27.0 - 34.0 pg 05/31/2024 10:22 AM EDT [facility] 56 MCHC 31.4 32.0 - 36.0 g/dL 05/31/2024 10:22 AM EDT [facility] RDW 14.3 11.5 - 15.5 % 05/31/2024 10:22 AM EDT [facility] PLT 99(L) 140 - 400 K/uL 05/31/2024 10:22 AM EDT [facility] MPV 9.2 6.6 - 11.1 fL 05/31/2024 10:22 AM EDT [facility] Blood Venous blood specimen / Unknown Venipuncture / Unknown 05/31/2024 10:10 AM EDT 05/31/2024 10:10 AM EDT Lucien Jamil MD LAB BLOOD ORDERA BLES [facility] [address] [facility] [place] [address] documented in this encounter Visit Diagnoses Diagnosis CLL (chronic [...] Advance Directives occurred with: Patient Care Teams Membership Assistant Relationship Specialty Start Date End Date [facility] Sl[facility] [address] PCP - General Internal Medicine 05/22/21 documented as of this encounter
--- OUTSIDE RECORDS SUMMARY | 2024-08-26 09:41 | External Medical Summary | Summary of Care ---
Author Name Unknown Organization [facility] Address [address] [place] [address] Phone [phone] Care Team Providers Care Brakeshoe Repairer Name Role Phone Vincent Slaughter MD Primary Care Provider + Reason for Visit * Reason Comments Suture Removal Pt presents today fo r 1 week recheck/suture removal on R ear. 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 30 mL 12 11/22/2022 Active [...] before bedtime. 60 Capsule 5 09/10/2023 Active Losartan Potassium 50 MG Oral Tablet (Cozaar)Indication s:HTN, goal below 140/90 TAKE 1 TABLET BY MOUTH EVERY MORNING 30 Tablet 5 11/07/2023 Active Chlorambucil 2 MG Oral Tablet (Leukeran)Indicati ons:CLL (chronic lymphocytic leukemia) (HCC) Take 1 Tablet by mouth in the morning. Take medication on an empty stomach.. 30 Tablet 5 11/21/2023 Active Trelegy Ellipta 200-62.5-25 MCG/ACT Aerosol Powder Breath Activated (Fluticasone-Umecl idinium-Vilanterol )Indications:Bronc hiectasis without complication (HCC),Chronic bronchitis, unspecified chronic bronchitis type (HCC),COPD (chronic obstructive pulmonary disease) with chronic bronchitis ([facility]),ILD (interstitial lung disease) ([facility]) Inhale 1 Puff by mouth in the morning. 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 Active Montelukast Sodium 10 MG Oral Tablet (Singulair)Indicat ions:Post-nasal drainage,Allergic rhinitis, unspecified seasonality, unspecified trigger Take 1 Tablet by mouth in the morning. 30 Tablet 5 05/07/2024 Active Doxycycline Monohydrate 100 MG Oral Capsule Take 1 Capsule by mouth in the morning and 1 Capsule before bedtime. Do all this for 7 days. 14 Capsule 05/03/2024 4 Hospital, Clinic, or Other Facility Administered Medication Ordered Dose Route Frequency Start Date End Date Status Albuterol Sulfate (Proventil) (2.5 MG/3ML) 0.083% inhalation solution 2.5 mgIndications:ILD (interstitial lung disease) ([facility]),Hypersensitivity pneumonitis (HCC),COPD, group B, by GOLD 2017 classification ([facility]),Dyspnea on exertion,Chronic cough 2.5 mg NEBULIZER ONCE PRN 01/07/2024 01/06/2025 Ac tive documented as of this encounter (statuses as of 05/13/2024) Active Problems Problem Noted Date Diagnosed Date [...] infarct. Mri 01/14/2007 Mri done at [facility] Statin intolerance 07/27/2007 Overview: Hepatitis with Zocor Other sleep apnea 06/01/2001 documented as of this encounter (statuses as of 05/13/2024) Resolved Problems Problem Noted Date Diagnosed Date [...] infarct. Mri 01/14/2007 Mri done at [facility] Cerebrovascular event, ill-d efined, within last 8 weeks 02/23/2007 11/17/2008 Overview: Modified per CVA protocol #8 Chronic rhinitis 09/16/2005 12/31/2017 Deviated nasal septum 03/27/20052017 Acquired deformity of nose 03/27/2005 1 08/31/2016 NASAL & SINUS DIS NEC 03/27/20052016 Other chronic sinusitis 03/27/200508/2018 CHRONIC LYMPHOID LEUKEMIA [facility] MENTION OF REMISSION 02/25/2005 04/14/2018 ADVANCE DIRECTIVE [...] as of this encounter (statuses as of 05/13/2024) Immunizations Name Administration Dates Next Due Pneumococcal [...] Progress Notes * Candace Aguilar MD - 05/10/2024 12:39 PM EDT SUBJECTIVE: HPI: Luis M Tirado is a 84 year old male seen today for bandage change/wound check/suture removal following Mohs micrographic surgery on right ear 05/03/2024. Wound is healing well thus far and patient has no concerns/complaints. Patients asks about a lesion on left upper arm EXAM Surgical wound (flip flop flap) on right ear healing well. Prolene sutures removed. A.left upper arm: 2.5 cm pink scaly plaque. PLAN - Continue vaseline with or without bandage to surgical site on right ear until completely healed (for about 1 more week) Lesion A. left upper arm. Favor squamous cell carcinoma in situ vs irritated seborrheic keratosis Shave of the lesion noted above to remove and confirm diagnosis. The procedure, risks, benefits, alternatives and expected outcomes were discussed with the patient and consent was obtained. Time out called. Patient identified, procedure verified, site identified and verified. Patient and staff present in agreement. Area prepped with alcohol and anesthetized using 0.5% lidocaine with epinephrine at 1:200,000 concentration. Shave of lesion performed. 20% AlCl and bandaging applied. Specimen sent to pathology. Patient instructed in routine post-op care. The lesion was curetted for cure. Size of lesion: 2.5 cm Size of wound after curettage: 3.2 cm Follow-up: as needed The patient was encouraged to contact me with any further questions or concerns. Candace Aguilar MD Associate, Mohs Micrographic Surgery & Dermatologic Surgery 05/10/2024 documented in this encounter Nursing Notes * Jojo Baez LPN - 05/10/2024 11:55 AM EDT Chief Complaint Patient presents with Suture Removal Pt presents today for 1 week recheck/suture removal on R ear. Bandage still intact Bandage removed and vinegar soak applied documented in this encounter Miscellaneous Notes * Result Encounter Note - Marilou Patterson LPN - 05/12/2024 10:15 AM EDT Spoke to patient and relayed results. Pt verbalized understanding and had no further questions. * Result Encounter Note - Candace Aguilar MD - 05/12/2024 9:19 AM EDT Please let patient know that lesion removed from left upper arm was a superficial squamous cell skin cancer (squamous cell carcinoma in situ) and that no further intervention is needed as it was treated with curettage at the time of biopsy. A. Skin, left upper arm, shave: Squamous cell carcinoma in situ documented in this encounter Plan of Treatment Upcoming Encounters Date Type Department Care Team (Late st Contact Info) Description 05/26/2024 10:00 AM EDT Office Visit Pulmonary Medicine, [address] [place] [address] Phillip Hernandez MD [facility] [address] [facility] [place] [address] 05/28/2024 1:00 PM EDT Office Visit Dermatology [facility] [address] [place] [address] Vincent Buck MD [address] [place] [address] 06/02/2024 9:30 AM EDT Office Visit Hematology/Oncology [facility] [place] [address] [place] [phone] Lucien Jamil MD [address] [place] [address] 06/30/2024 9:00 AM EST Pharmacy Pharmacy Hematology Oncology [facility] [address] [place] [address] [facility] Hem/Onc [address] [place] [address] 07/19/2024 12:00 PM EST Office Visit Pulmonary Medicine, [facility] [address] [place] [address] Tomi Hayes DO [address] [place] [address] 09/27/2024 3:30 PM EST Office Visit Cardiology, [facility] [address] [place] [address] Cuauhtemoc Jo, DO [address] [place] [address] 11/22/2024 11:00 AM EDT Office Visit Cardiology, [facility] [address] [place] [address] Cuauhtemoc Jo, DO [address] [place] [address] 12/03/2024 11:15 AM EDT Office Visit Otolaryngology [facility] [address] [place] [address] Susanne Thrasher MD [address] [place] [address] Health Maintenance Due Date Last Done Comments COVID-19 Vaccine (#1) 02/07/1945 Zoster Vaccines (1 of 2) 02/07/1959 Adult Wellness Visit 02/07/2006 CKD PHOS USE SMARTSET 20885 11/29/202311/03, 11/07/2022, 10/16/2021, Additional history exists Influenza Vaccine (FLU shot) (#1) 2024 Albumin/Creatinine Ratio 05/22/2024 023, 05/09/2022, 09/17/1999 Depression Screening 05/22/2024 05/22/2023 GFR 11/05/2024 05/07/2024, 04/04, 04/06/2024, Additional history exists DTap/Tdap Vaccines (4 - Td or Tdap) 12/01/2024 12/01/2014, 12/01/2014, 12/01/2014 CKD HGB USE SMARTSET 22370 05/07/202505/07, 05/07/2024, 04/22/2024, Additional history exists O2 ASSESSMENT COMPLETED IN PAST YEAR FOR COPD 05/07/2025 05/07/2024 Pneumococcal Vaccine: 65+ Years Completed 07/01/2017, 06/26/2016, [...] this encounter Medical Devices Implanted Type Area Project Manager Finance Device Identifier Shelf Expiration Date Model / Serial / Lot Valve Korey 3 Ultra 26mm - [id number] Implanted:Qty: 1 on 12/24/2022 by Jesse Tanner MD at [facility] [employer] [id number] 07/03/2023 [id number] / / Lead Pace Selectsecure 3830-69 - [id number] Implanted:Qty: 1 on 12/26/2022 by Keily Kelley IV, MD at [facility] [employer] : CRM [id number] 11/19/2024 [id number] / [id number] / [id number] Lead Novus Bipolar 52cm - [id number] Implanted:Qty: 1 on 12/26/2022 by Keily Kelley IV, MD at [facility] [employer] : CRM [id number] 10/10/2024 5076- 52 / [id number] / [id number] Pacemaker [place] Xt [address] Mri Wrls - [id number] Implanted:Qty: 1 on 12/26/2022 by Keily Kelley IV, MD at [facility] [id number] 05/17/2024 W1DR01 / [id number] / [id number] documented as of this encounter Procedures Procedure Name Priority Date/Time Associated Diagnosis Comments SURGICAL PATHOLOGY Routine 05/10/2024 12 :41 PM EDT Skin lesion documented in this encounter Results * SURGICAL PATHOLOGY (05/10/2024 12:41 PM EDT) Final Diagnosis A. Skin, left upper arm, shave: Squamous cell carcinoma in situ 05/12/2024 9:12 AM EDT [facility] Clinical History See Order Comments 05/12/2024 9:12 AM EDT [facility] Order Comments A.left upper arm: 2.5 cm pink scaly plaque. Favor squamous cell carcinoma in situ vs irritated seborrheic keratosis. Shave biopsy and curettage. 05/12/2024 9:12 AM EDT [facility] Gross Description A. Skin. Received in formalin with a container labeled with "Luis M Tirado", "[id number]", "[id number]" and " left upper arm". Received is a 2.6 x 2.3 cm skin shave. The skin surface is white-de jesus, firm, slightly raised throughout, hair-bearing. The underlying tissue is inked. The specimen is serially sectioned into 10 and submitted in cassettes A1-A4. Gross By: MF 05/12/2024 9:12 AM EDT [facility] Sign Out Location Pathologist sign out performed at [facility] ([facility] [address] [place] [id number]. 05/12/2024 9:12 AM EDT [facility] Photographic images and diagrams represent ramon findings in this case; they are not intended to replace a complete review of the final diagnostic report. The following statement applies to Flow Cytometry, Histology, In situ Hybridization Assays and Molecular Genetics. This test was developed and performed at [facility] and its performance characteristics determined by [facility] [employer]. It has not been cleared or approved by the U.S. Food and Drug Administration. The FDA has determined that such clearance or approval is not necessary. This test is used for clinical purposes. It should not be regarded as investigational or for research. Special stains, including histochemical stains, and studies using immunologic and REBECCA methodology (where applicable) are performed with appropriate positive and negative control reactions. 05/12/2024 9:12 AM EDT LAB[facility] Tissue Skin structure / Unknown 05/10/2024 12:41 PM EDT 05/10/2024 12:41 PM EDT Comment:A.left upper arm: 2. 5 cm pink scaly plaque. Favor squamous cell carcinoma in situ vs irritated seborrheic keratosis. Shave biopsy and curettage. 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 Question Answer Comments Discussion of Advance Directives occurred with: Patient Care Teams Brakeshoe Repairer Relationship Specialty Start Date End Date Vincent Slaughter MD [address] [place] [address] PCP - General Internal Medicine 05/22/21 documented as of this encounter
--- OUTSIDE RECORDS SUMMARY | 2024-08-26 09:41 | External Medical Summary | Summary of Care ---
Author Name Unknown Organization [facility] Address [address] [place] [address] Phone [phone] Care Team Providers Care Manager Laundry Name Role Phone Vincent Slaughter MD Primary Care Provider + Reason for Visit * Reason Comments Mohs Surgery Pt presents today fo r Mohs surgery on R ear. * Evaluate & Treat - Unlimited Visits (Within 30 days (routine)) - Authorized Specialty Diagnoses / Procedures Referred By Ousmane t Referred To Contact Dermatology Diagnoses SCC (squamous cell carcinoma), ear, right Lilly Carmichael PA-C [address] [place] [address] Referral ID Status Reason Start Date Expiration Date Visits Requested Visits Authorized [id number] Authorized Specialty Services Required 03/23/2024 [id number] Encounter Details Date Type Department Care Team (Late st Contact Info) Description 05/03/2024 7:30 AM EDT Office Visit MOHS Surgery [facility] [address] [place] [address] Candace Aguilar MD [address] [place] [address] SCC (squamous cell carcinoma), ear, right* Allergies Active Allergy Reactions Criticality Noted Date Comments Heparin High 01/01/2023 ?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 18 g 5 01/16/2022 Active Spacer/Aero-Holdi ng Chambers DeviceIndications :Pneumonia due to COVID-19 virus Use with inhaler as directed . 1 Each 03/04/2022 Active oxyCODONE-Acetami nophen 5-325 MG Oral Tablet (Percocet)Indicat ions:Persistent headaches Take 1 Tablet by mouth every 6 hours as needed for Pain, Breakthrough. 1 TABLET EVERY 6 HOURS NEEDED 60 Tablet 11/07/2022 Active Azelastine HCl 0.1 % Nasal Solution (Astelin) Administer 1 Pierson into nostril in the morning and 1 Pierson before bedtime. 30 mL 12 11/22/2022 Active Azithromycin 500 MG Oral Tablet (Zithromax) Take 1 tablet 30-60 mg prior to any dental work. 1 Tablet 4 01/01/2023 Active Allopurinol 100 MG Oral Tablet (Zyloprim)Indicat ions:Idiopathic chronic gout of multiple sites without tophus Take 1 Tablet by mouth in the morning. 30 Tablet 11 05/23/2023 Active Colchicine 0.6 MG Oral TabletIndications :Idiopathic [...] 11/07/2023 Active Chlorambucil 2 MG Oral Tablet (Leukeran)Indicat [...] before bedtime 180 Tablet 1 04/10/2024 Active cetirizine (ZYRTEC ALLERGY) 10 MG Tablet Take 1 Tablet by mouth in the morning and 1 Tablet in the evening. 4 Discontinued (Medication/ Dose Changed) methylPREDNISolon e 4 MG Oral Tablet Therapy Pack (Medrol Dosepack)Indicati ons:Sensorineural hearing loss (SNHL) of both ears,Dysfunction of both eustachian tubes follow package directions 21 Tablet 01/06/2024 4 Discontinued (End of Procedure) Doxycycline Monohydrate 100 MG Oral Capsule Take [...] as of this encounter (statuses as of 05/12/2024) Active Problems Problem Noted Date Diagnosed Date [...] infarct. Mri 01/14/2007 Mri done at [facility] Statin intolerance 07/27/2007 Overview: Hepatitis with Zocor Other sleep apnea 06/01/2001 documented as of this encounter (statuses as of 05/12/2024) Resolved Problems Problem Noted Date Diagnosed Date [...] infarct. Mri 01/14/2007 Mri done at [facility] Cerebrovascular event, ill-d efined, within last [...] as of this encounter (statuses as of 05/12/2024) Immunizations Name Administration Dates Next Due Pneumococcal [...] Sign Reading Time Taken Comments Blood Pressure - - Pulse - - Temperature 36.1 C (97 F) 05/03/2024 7:21 AM EDT Respiratory Rate - - Oxygen Saturation - - Inhaled Oxygen Concentration - - Weight - - Height - - Body Mass Index - - documented in this encounter Functional Status Functional [...] Progress Notes * Candace Aguilar MD - 05/03/2024 7:30 AM EDT [facility] Mohs Surgery Note (See separate transcribed operative note for further detail) History: Luis M Tirado is a 84 year old patient seen for evaluation and management of the following lesion: B. Skin, R ear, shave: Well-differentiated invasive squamous cell carcinoma Patient problem list reviewed. Patient medication/allergy lists reviewed. Examination: Luis M Tirado is alert, oriented and appears well and in no distress. LYMPHATIC: No preauricular or postauricular, submandibular, submental, anterior or posterior cervical, or supraclavicular lymphadenopathy. 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 Taking the doxycycline with food and plenty of water was recommended. An up-right posture was recommended after taking the medication with avoidance of lying down. Sun avoidance and sunscreens were also recommended. Standard Mohs micrographic technique was utilized to treat this tumor. Microscopic examination of the specimen allowed the Mohs surgeon, whose dual role is to function as both surgeon and pathologist, to precisely identify the location of any remaining tumor or ascertain that the tissue margins were free of tumor. This process of excision of remaining tumor, mapping, and histologic exam was repeated until the tumor was excised completely. Patient identified, procedure verified, site identified and verified with the patient. Time out completed. Surgical removal of the lesion discussed with the patient (risks and benefits, including possibility of scarring, infection, bleeding, recurrence or potential for further treatment). I have specifically identified the site with the patient. I have discussed the fact that the patient will have a scar after the procedure regardless of granulation or repair with sutures. I have discussed that the repair options can range from granulation in some cases to linear or curvilinear closures to larger flaps or grafts. There is a risk of injury to nerves causing temporary or permanent numbness. Questions answered and verbal and written consent was obtained. 3 stage(s) Anesthetic: 0.05% lidocaine with 1:100,000 epinephrine. Repair: postauricular pull-through flap (transposition/tunneled island pedicle flap) (see separate operative report for details) Absorbable and non-absorbable sutures Wound care was discussed verbally, demonstrated and printed wound instructions given as well as wound care supplies. Patient instructed to call with questions or concerns. Personal contact information provided. Follow-up: 1 week Candace Aguilar MD Associate, Mohs Micrographic Surgery & Dermatologic Surgery 05/03/2024 documented in this encounter Nursing Notes * Jojo Baez LPN - 05/03/2024 7:22 AM EDT Chief Complaint Patient presents with Mohs Surgery Pt presents today for Mohs surgery on R ear. Referral Doctor: LIEN Carmichael Hypertension History: No Diabetes History: No Thyroid History: Yes, refer to medication information for treatment. Bleeding Tendency: Yes, refer to medication information for treatment. Artificial Valve or Joint: no Pacemaker: yes Defibrillator: no Hepatitis/HIV Exposure: No Smoking: no Consent signed yes documented in this encounter Plan of Treatment Upcoming Encounters Date Type Department Care Team (Late st Contact Info) Description 05/26/2024 10:00 AM EDT Office Visit Pulmonary Medicine, [facility] [address] [place] [address] Phillip Hernandez MD [address] [place] [address] 05/28/2024 1:00 PM EDT Office Visit Dermatology [facility] [address] [facility] [place] [address] Vincent Buck MD [address] [facility] [place] [address] 06/02/2024 9:30 AM EDT Office Visit Hematology/Oncology [facility] [address] [facility] [place] [address] Lucien Jamil MD [address] [place] [address] 06/30/2024 9:00 AM [facility] Hematology Oncology [address] [address] [facility] [address] [place] [address] 07/19/2024 12:00 PM EST Office Visit Pulmonary Medicine, [facility] [address] [place] [address] Tomi Hayes DO [address] [place] [address] 09/27/2024 3:30 PM EST Office Visit Cardiology, [facility] [address] [facility] [place] [address] Cuauhtemoc Jo, DO [address] [place] [address] 11/22/2024 11:00 AM EDT Office Visit Cardiology, [facility] [address] [facility] [place] [address] Cuauhtemoc Jo, DO [address] [place] [address] 12/03/2024 11:15 AM EDT Office Visit Otolaryngology [facility] [address] [facility] [place] [address] Susanne Thrasher MD [address] [place] [address] Health Maintenance Due Date Last Done Comments COVID-19 Vaccine (#1) 02/07/1945 Zoster Vaccines (1 of 2) 02/07/1959 Adult Wellness Visit 02/07/2006 CKD PHOS USE SMARTSET 14965 11/29/202311/03, 11/07/2022, 10/16/2021, Additional history exists Influenza Vaccine (FLU shot) (#1) 2024 Albumin/Creatinine Ratio 05/22/2024 023, 05/09/2022, 09/17/1999 Depression Screening 05/22/2024 05/22/2023 GFR 11/05/2024 05/07/2024, 04/04, 04/06/2024, Additional history exists DTap/Tdap Vaccines (4 - Td or Tdap) 12/01/2024 12/01/2014, 12/01/2014, 12/01/2014 CKD HGB USE SMARTSET 69486 05/07/202505/07, 05/07/2024, 04/22/2024, Additional history exists O2 [...] this encounter Medical Devices Implanted Type Area Offal Icer Poultry Device Identifier Shelf Expiration Date Model / Serial / Lot Valve Korey 3 Ultra 26mm - [id number] Implanted:Qty: 1 on 12/24/2022 by Jesse Tanner MD at [facility] [employer] [id number] 07/03/2023 [id number] / / Lead Pace Selectsecure 3830-69 - [id number] Implanted:Qty: 1 on 12/26/2022 by Keily Kelley IV, MD at [facility] [employer] : CRM [id number] 11/19/2024 [id number] / [id number] / [id number] Lead Novus Bipolar 52cm - [id number] Implanted:Qty: 1 on 12/26/2022 by Keily Kelley IV, MD at [facility] [employer] : CRM [id number] 10/10/2024 [id number] / [id number] / [id number] Pacemaker Parul Xt Mri [facility] - [id number] Implanted:Qty: 1 on 12/26/2022 by Keily Kelley IV, MD at [facility] [employer] [id number] 05/17/2024 [id number] / [id number] / [id number] documented as of this encounter Visit Diagnoses Diagnosis SCC (squamous cell carcinoma), ear, right- Primary documented in this encounter Advance Directives * Full Code (Latest Code Status on File) Date Activated Date Inactivated Comments 12/24/2022 11:13 AM 12/27/2022 10:05 PM This order reflects the patients wishes and were consensually agreed upon. Question Answer Comments Discussion of Advance Directives occurred with: Patient Care Teams Manager Laundry Relationship Specialty Start Date End Date Vincent Slaughter MD [address] [place] [address] PCP - General Internal Medicine 05/22/21 documented as of this encounter
--- OUTSIDE RECORDS SUMMARY | 2024-08-26 09:41 | External Medical Summary | Summary of Care ---
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 [address] [facility] [place], [place] [id number] Nazario Whaley, [address] [place] [address] Post-nasal drainage*; Allergic rhinitis, unspecified seasonality, unspecified trigger; COPD, group B, by GOLD 2017 classification ([facility]); ILD (interstitial lung disease) ([facility]); HTN, goal below 140/90; Chronic kidney disease, stage 3a ([facility]); CLL (chronic lymphocytic leukemia) ([facility]); Bronchiectasis without complication ([facility]) Allergies Active Allergy Reactions Criticality Noted Date Comments Heparin High 01/01/2023 ?Possible 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 30 mL 12 11/22/2022 Active [...] 24 Hour (toPROL XL)Indications:Asc ending aorta dilatation ([facility]) TAKE 1 TABLET BY MOUTH TWICE DAILY every morning and before bedtime 180 Tablet 1 04/10/2024 Active Doxycycline Monohydrate 100 MG Oral Capsule Take 1 Capsule by mouth in the morning and 1 Capsule before bedtime. Do all this for 7 days. 14 Capsule 05/03/2024 4 Active Fexofenadine HCl 180 MG Oral Tablet (Yolanda) Take 1 Tablet by mouth in the morning. Active Montelukast Sodium 10 MG Oral Tablet (Singulair)Indicat ions:Post-nasal drainage,Allergic rhinitis, unspecified seasonality, unspecified trigger Take 1 Tablet by mouth in the morning. 30 Tablet 5 05/07/2024 Active cetirizine (ZYRTEC ALLERGY) 10 MG Tablet Take 1 Tablet by mouth in the morning and 1 Tablet in the evening. 4 Discontinue d(Medicatio n/Dose Changed) methylPREDNISolone 4 MG Oral Tablet Therapy Pack (Medrol Dosepack)Indicatio ns:Sensorineural hearing loss (SNHL) of both ears,Dysfunction of both eustachian tubes follow package directions 21 Tablet 01/06/2024 4 Discontinue d(End of Procedure) Hospital, Clinic, or Other Facility Administered Medication Ordered Dose Route Frequency Start Date End Date Status Albuterol Sulfate (Proventil) (2.5 MG/3ML) 0.083% inhalation solution 2.5 mgIndications:ILD (interstitial lung disease) (HCC),Hypersensitivity pneumonitis (HCC),COPD, group B, by GOLD 2017 classification (HCC),Dyspnea on exertion,Chronic cough 2.5 mg NEBULIZER ONCE PRN 01/07/2024 01/06/2025 Ac tive documented as of this encounter (statuses as of 05/07/2024) Active Problems Problem Noted Date Diagnosed Date [...] [facility] Statin intolerance 07/27/2007 Overview: Hepatitis with Zocor Other sleep apnea 06/01/2001 documented as of this encounter (statuses as of 05/07/2024) Resolved Problems Problem Noted Date Diagnosed Date [...] as of this encounter (statuses as of 05/07/2024) Immunizations Name Administration Dates Next Due Pneumococcal Conjugate Vacc, 13 Valent (Prevnar) 06/26/2016 Pneumococcal Polysaccharide PPV23 (Pneumovax) TB Rosemarie Test 02/28/2022,02/19/2022 TD - Tetanus/Diptheria (ADULT) 12/01/2014 TD, Preservative Free 12/01/2014 TDAP (age 10 and older)(Boostrix) 12/01/2014 documented as of this encounter Social History Tobacco Use Types Packs/Day Years Used Date Smoking Tobacco: Never Smokeless Tobacco: Never Tobacco Cessation:Counseling Given: Not Answered Alcohol Use Standard Drinks/Week Comments Yes 0 [...] Sign Reading Time Taken Comments Blood Pressure 138/78 05/07/2024 12:14 PM EDT Pulse 88 05/07/2024 12:14 PM EDT Temperature 36.4 C (97.5 F) 05/07/2024 12:14 PM E DT Respiratory Rate 20 05/07/2024 12:14 PM EDT Oxygen Saturation 98% 05/07/2024 12:14 PM EDT Inhaled Oxygen Concentration - - Weight 77.4 kg (170 lb 9.6 oz) 05/07/2024 12:14 PM EDT Height 160 cm (5' 3") 05/07/2024 12:14 PM EDT Body Mass Index 30.22 05/07/2024 12:14 PM EDT documented in this encounter Functional Status [...] as of this encounter Progress Notes * DawnaNazario law, DO - 05/07/2024 12:16 PM EDT Subjective Luis M Tirado is a 84 year old male. Chief Complaint Patient presents with Follow Up HPI: Patient presents office for routine follow-up. Most recent labs reviewed with patient. Medication list reviewed. Patient has reported issues with chronic postnasal drip in the past. Feels like he has chronic sinusitis. However notes no fever chills at this time. Feels partly environmental. Especially bad this time a year as well as the spring. These symptoms only seem better if he as needed salt water. Does salt water rinses which seemed to help for just a short time. Has taken cetirizine in the past with mixed results. No adverse effects Patient did see Pulmonology recently. Consultation note reviewed. Due to chronic respiratory symptoms, possible interstitial lung disease. He was continued on Trelegy Ellipta. Unsure exactly how muchhelping at this time. No adverse effects. Does have ProAir HFA as well. 6 minute walk test ordered for next follow-up. Possibly considering high-resolution CT scan as well. Does not note any worsening shortness of breath, cough or wheezing Patient has history hypertension, valve replacement. Has seen CT surgery as well as Cardiology since last visit. Everything found to be stable. No evidence of hypervolemia. Continued on current regimen. 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 CLL (chronic lymphocytic leukemia) (HCC) Hx of nonmelanoma skin cancer Hx of actinic keratosis Nonrheumatic aortic valve stenosis Ascending aorta dilatation (HCC) Benign hypertension with stage 3a chronic kidney disease (HCC) Chronic kidney disease, stage 3a (HCC) PSVT (paroxysmal supraventricular tachycardia) ([facility]) History of 2019 novel coronavirus disease (COVID-19) ILD (interstitial lung disease) ([facility]) COPD (chronic obstructive pulmonary disease) with chronic bronchitis (HCC) COPD, group B, by GOLD 2017 classification ([facility]) 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 diphenhydrAMINE HCl 25 MG Oral Tablet Take [...] 0.1 % Nasal Solution (Astelin) Administer 1 Romayor into nostril in the morning and 1 Romayor before bedtime. 30 mL 12 Azithromycin 500 [...] 1 Capsule before bedtime. 60 Capsule 5 Losartan Potassium 50 MG Oral Tablet (Cozaar) TAKE 1 TABLET BY MOUTH EVERY MORNING 30 Tablet 5 Chlorambucil 2 MG Oral Tablet (Leukeran) Take 1 Tablet by mouth in the morning. Take medication on an empty stomach.. 30 Tablet 5 Trelegy Ellipta 200-62.5-25 MCG/ACT Aerosol Powder Breath Activated (Fxtborejlda-Ynsyycvxwatd-Vcoddelksz) Inhale 1 Puff by mouth in the morning. 60 Blister Dosing Unit 3 Metoprolol Succinate ER 25 MG Oral Tablet Extended Release 24 Hour (toPROL XL) TAKE 1 TABLET BY MOUTH TWICE DAILY every morning and before bedtime 180 Tablet 1 Doxycycline Monohydrate 100 MG Oral Capsule Take 1 Capsule by mouth in the morning and 1 Capsule before bedtime. Do all this for 7 days. 14 Capsule 0 Current Facility-Administered Medications Medication Dose Route Frequency [...] done at [facility] Chronic kidney disease, stage 3a (HCC) 01/16/2021 Per CKD protocol Chronic lymphocytic leukemia (HCC) 02/25/2005 Complete heart block (HCC) 01/06/2023 Dyslipidemia, goal to be determined History of 2019 novel coronavirus disease (COVID-19) 05/07/2022 HTN, goal to be determined Hypertension, chronic,unspecified HYPERCALCEMIA Hyperparathyroidism Other chronic sinusitis 03/27/2005 Pneumonia Primary osteoarthritis involving multiple joints SLEEP APNEA NOS 06/01/2001 Past Surgical History: Procedure Laterality Date COLONOSCOPY 09/10/2004 Normal repeat 3-5 years COLONOSCOPY, DIAGNOSTIC (RECTUM) 05/28/2010 normal colon exam repeat in 5 years COLONOSCOPY, DIAGNOSTIC (RECTUM) 09/27/2014 normal/[facility] COLONOSCOPY, SURGICAL 02/2000 cloacogenic polyp: removed by Dr Zuñiga CORONARY ANGIOGRAPHY W/LEFT HEART CATH Right 11/28/2022 CORONARY ANGIOGRAPHY W/LEFT HEART CATH performed by Adolfo Pierce DO at [facility] EXPLORE PARATHYROID GLANDS 1998 Parathyroidectomy FRACTURE NOS 2002 Fractures L leg/bone graft INJECTION OF EYE DRUG Right 07/09/2016 # 1 Eylea OD, INJECTION OF EYE DRUG Right 09/19/2016 # 2 Eylea OD, INJECTION OF EYE DRUG Right 11/07/2016 # 1 Triesence OD, Dr. Jc INSERT/REPLACE PACEMAKER,ATRIAL/VENTRICULAR Left 12/26/2022 NEW DDD PACEMAKER IMPLANT performed by Keily Kelley IV, MD at [facility] LUMBAR SPINE FUSION, POST INTERBODY Dr. Estrada lower back MISCELLANEOUS ORDER ([facility] ONLY) Right 07/09/2016 Eylea OD Consent signed, MISCELLANEOUS ORDER ([facility] ONLY) Right 11/07/2016 Triesence OD Consent Signed, Dr. Jc [facility], 1ST STAGE; FACE, HANDS, FEET, NERVE "one left side of throat and two on my head" OTHER 06/2005 Dr. Reeder; nasal surgery OTHER 11/2006 left shoulder arthroscopy OTHER (INFORMATION) ACT 112 SIGNED 12/04/22 DR. JC REMOVAL OF APPENDIX 05/29/2010 Appendectomy- [facility] 05/29/2010 REPLACE AORTIC VALVE, PERCUTANEOUS FEMORAL N/A 12/24/2022 REPLACE AORTIC VALVE, PERCUTANEOUS FEMORAL performed by Jesse Tanner MD at [facility] REPLACE AORTIC VALVE, PERCUTANEOUS FEMORAL N/A 12/24/2022 REPLACE AORTIC VALVE, PERCUTANEOUS FEMORAL performed by Alin Be MD at [facility] TREAT LOCALIZED RETINA LESION Right 12/12/2016 Focal [...] Status Relation Status Mo at age 57 [place] Fa at age 61 Alcoholism, ulcer Sis [...] on file Occupational History 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 No mold. Social Determinants of Health Financial Resource Strain: Not on file Food [...] and fever. HENT: Positive for congestion, postnasal drip and rhinorrhea. Negative for sore throat and trouble swallowing. [...] The patient is not nervous/anxious. Objective BP 138/78 (BP Site: Left Arm, BP Position: Sitting, BP Cuff Size: Regular) | Pulse 88 | Temp 36.4 C (97.5 F) (Tympanic) | Resp 20 | Ht 1.6 m (5' 3") | Wt 77.4 kg (170 lb 9.6 oz) | SpO2 98% | BMI30.22 kg/m | BSA 1.85 m Physical Exam Constitutional: General: He is not in acute distress. Appearance: He is not ill-appearing. HENT: Head: Normocephalic and atraumatic. Right Ear: Tympanic membrane, ear canal and external ear normal. Left Ear: Tympanic membrane, ear canal and external ear normal. Nose: Congestion and rhinorrhea present. Mouth/Throat: Mouth: Mucous membranes are dry. Pharynx: Oropharynx is clear. Comments: Clear postnasal drip similar to previous visits Eyes: General: No scleral icterus. Extraocular Movements: Extraocular movements intact. Conjunctiva/sclera: Conjunctivae [...] mass. Tenderness: There is no abdominal tenderness. There is no right CVA tenderness or left CVA tenderness. Musculoskeletal: General: No swelling or tenderness. [...] and Affect: Mood normal. Behavior: Behavior normal. Latest Reference Range & Units 03/26/24 10:56 04/06/24 09:03 04/22/24 10:08 SODIUM 135 - 146 mmol/L 143 141 143 POTASSIUM 3.5 - 5.1 mmol/L 4.1 3.9 4.1 CHLORIDE 98 - 107 mmol/L 106 105 106 CO2 22 - 32 mmol/L 25 24 26 BUN 6 - 20 mg/dL 17 22 (H) 16 CREATININE 0.6 - 1.2 mg/dL 1.3 (H) 1.4 (H) 1.3 (H) EGFR >=60 mL/min 52 (L) 49 (L) 55 (L) ANION GAP 7 - 15 mmol/L 12 12 11 GLUCOSE 70 - 120 mg/dL 90 108 94 CALCIUM 8.4 - 10.2 mg/dL 9.2 9.2 9.3 Protein 6.0 - 8.3 g/dL 6.3 6.5 6.4 CBC Rpt ! Rpt ! Rpt ! WBC 4.00 - 10.80 K/uL 23.69 (H) 27.49 (H) 22.54 (H) RBC 4.50 - 5.25 M/uL 3.48 3.79 3.70 HGB 14.0 - 16.8 g/dL 11.0 (L) 11.9 (L) 11.9 (L) HCT 40.0 - 48.4 % 34.7 (L) 37.8 (L) 36.8 (L) MCV 82.0 - 99.5 fL 99.7 99.7 99.5 MCH 27.0 - 34.0 pg 31.6 31.4 32.2 MCHC 32.0 - 36.0 g/dL 31.7 31.5 32.3 RDW 11.5 - 15.5 % 14.7 14.3 14.4 PLT 140 - 400 K/uL 93 (L) 114 (L) 98 (L) MPV 6.6 - 11.1 fL 8.9 9.0 9.2 CBC WITH WBC DIFFERENTIAL Rpt ! Rpt ! Rpt ! Absolute Neutrophils 1.80 - 7.70 K/uL 4.03 4.95 3.38 Absolute Lymphocytes 1.00 - 4.80 K/uL 19.19 (H) 22.27 (H) 18.26 (H) Absolute Monocytes 0.00 - 1.10 K/uL 0.47 0.68 Absolute Eosinophils 0.00 - 0.70 K/uL 0.27 0.23 Albumin 3.8 - 5.0 g/dL 4.4 4.4 4.3 AST 10 - 50 U/L 19 22 23 ALT 10 - 50 U/L <5 (L) 7 (L) <5 (L) Alkaline Phosphatase 35 - 130 U/L 75 72 73 Bilirubin, Total <=1.2 mg/dL 0.7 0.6 0.5 (H): Data is abnormally high (L): Data is abnormally low !: Data is abnormal Rpt: View report in Results Review for more information ASSESSMENT/PLAN: Post-nasal drainage (Primary) - Montelukast Sodium 10 MG Oral Tablet (Singulair); Take 1 Tablet by mouth in the morning. Allergic rhinitis, unspecified seasonality, unspecified trigger - Montelukast Sodium 10 MG Oral Tablet (Singulair); Take 1 Tablet by mouth in the morning. COPD, group B, by GOLD 2017 classification ([facility]) ILD (interstitial lung disease) ([facility]) HTN, goal below 140/90 Chronic kidney disease, stage 3a ([facility]) CLL (chronic lymphocytic leukemia) ([facility]) Bronchiectasis without complication ([facility]) Plan: Patient presents office for routine follow-up. Continues to have issues with chronic postnasal drip, sinus drainage. No current evidence of respiratory infection at this time Patient may continue saline rinses 2 to 3 times a day Would like to place patient on more aggressive allergy regimen. Will start Yolanda 180 mg daily. Start montelukast 10 mg nightly. Counseled on common side effects of each medication for which to monitor Would recommend continuing Trelegy Ellipta 200-60 2.5-25 mcg 1 inhalation daily, ProAir HFA as needed Reviewed most recent CMP, CBC with him. These are checked regularly by Oncology Follow-up with other specialists as scheduled Follow Up: Return if symptoms worsen or fail to improve, for Follow up next routine with PCP as scheduled. | For: Follow up next routine with PCP as scheduled | Check-out note: Follow up next routinevisit Nazario Whaley DO documented in this encounter Nursing Notes * Marisela Alves MED ASSIST - 05/07/2024 12:13 PM EDT Luis M Tirado presents for 3 month recheck. Medications & HM reviewed. documented in this encounter Plan of Treatment Upcoming Encounters Date Type Department Care Team (Late st Contact Info) Description 05/10/2024 1:00 PM EDT Office Visit [facility] Surgery [address] [address] Candace Aguilar MD [address] [place] [address] 05/26/2024 10:00 AM EDT Office Visit Pulmonary Medicine, [facility] [address] [place] [address] Phillip Hernandez MD [address] [place] [address] 05/28/2024 1:00 PM EDT Office Visit Dermatology [facility] [address] [place] [address] Vincent Buck MD [address] [place] [address] 06/02/2024 9:30 AM EDT Office Visit Hematology/Oncology [facility] [address] [place] [phone] Lucien Jamil MD [address] [place] [address] 06/30/2024 9:00 AM EST Pharmacy Pharmacy Hematology Oncology [facility] [address] [place] [address] [facility] Hem/Onc [address] [place] [address] 07/19/2024 12:00 PM EST Office Visit Pulmonary Medicine, [facility] [address] [place] [address] Tomi Hayes DO [address] [place] [address] 09/27/2024 3:30 PM EST Office Visit Cardiology, [facility] [address] [facility] [place] [address] Cuauhtemoc oJ, DO [address] [place] [address] 11/22/2024 11:00 AM EDT Office Visit Cardiology, [facility] [address] [place] [address] Cuauhtemoc Jo, DO [address] [place] [address] 12/03/2024 11:15 AM EDT Office Visit Otolaryngology [facility] [address] [place] [address] Susanne Thrasher MD [address] [place] [address] Health Maintenance Due Date Last Done Comments Zoster Vaccines (1 of 2) 02/07/1959 Adult Wellness Visit 02/07/2006 CKD PHOS USE SMARTSET 58130 11/29/202311/03, 11/07/2022, 10/16/2021, Additional history exists Influenza Vaccine (FLU shot) (#1) 2024 COVID-19 Vaccine (#1) 05/08/2024 Postpo john from 02/07/1945 (Unavailable) Albumin/Creatinine Ratio 05/22/2024 023, 05/09/2022, 09/17/1999 Depression Screening 05/22/2024 05/22/2023 GFR 11/05/2024 05/07/2024, 04/04, 04/06/2024, Additional history exists DTap/Tdap Vaccines (4 - Td or Tdap) 12/01/2024 12/01/2014, 12/01/2014, 12/01/2014 CKD HGB USE SMARTSET [id number] 05/07/202505/07, 05/07/2024, 04/22/2024, Additional history exists O2 [...] this encounter Medical Devices Implanted Type Area Relocation Services Specialist Device Identifier Shelf Expiration Date Model / Serial / Lot Valve Korey 3 Ultra 26mm - [id number] Implanted:Qty: 1 on 12/24/2022 by Jesse Tanner MD at [facility] [employer] [id number] 07/03/2023 [id number] / / Lead Pace Selectsecure [id number] - [id number] Implanted:Qty: 1 on 12/26/2022 by Keily Kelley IV, MD at [facility] [employer] : CRM [id number] 11/19/2024 [id number] / [id number] / [id number] Lead Novus Bipolar 52cm - [id number] Implanted:Qty: 1 on 12/26/2022 by Keily Kelley IV, MD at [facility] [employer] : CRM [id number] 10/10/2024 [id number] / [id number] / [id number] Pacemaker Parul Xt Dr [facility] - [id number] Implanted:Qty: 1 on 12/26/2022 by Keily Kelley IV, MD at [facility] [employer] [id number] 05/17/2024 [id number] / [id number] / [id number] documented as of this encounter Visit Diagnoses Diagnosis Post-nasal drainage- Primary Unspecified sinusitis (chronic) Allergic rhinitis, unspecified seasonality, unspecified trigger COPD, group B, by GOLD 2017 classification (HCC) ILD (interstitial lung disease) (HCC) Postinflammatory pulmonary fibrosis HTN, goal below 140/90 Unspecified essential hypertension Chronic kidney disease, stage 3a (HCC) CLL (chronic lymphocytic leukemia) (HCC) Chronic lymphoid leukemia, without mention of having achieved remission Bronchiectasis without complication (HCC) Bronchiectasis without acute exacerbation documented in this encounter Advance Directives * Full Code (Latest Code Status on File) Date Activated Date Inactivated Comments 12/24/2022 11:13 AM 12/27/2022 10:05 PM This order reflects the patients wishes and were consensually agreed upon. Question Answer Comments Discussion of Advance Directives occurred with: Patient Care Teams Motorboat Mechanic Inboard Relationship Specialty Start Date End Date Vincent Slaughter MD [address] [facility] [place] [address] PCP - General Internal Medicine 05/22/21 documented as of this encounter
--- OUTSIDE RECORDS SUMMARY | 2024-08-26 09:41 | External Medical Summary | Summary of Care ---
Author Name Unknown Organization [facility] Address [address] [place] [address] Phone [phone] Care Team Providers Care Bisque Placer Name Role Phone Vincent Slaughter MD Primary Care Provider + Reason for Visit * Reason Comments eRx-Medication Refill Encounter Details Date Type Department Care Team (Late st Contact Info) Description 05/24/2024 Refill General Internal Medicine [facility] [address] [facility] [place] [id number] Vincent Slaughter MD [address] [place] [address] HTN, goal below 140/90 Allergies Active Allergy Reactions Criticality Noted Date [...] 0.1 % Nasal Solution (Astelin) Administer 1 [place] into nostril in the morning and 1 [place] before bedtime. 30 mL 12 11/22/2022 Active [...] 09/10/2023 Active Chlorambucil 2 MG Oral Tablet (Leukeran)Indicat [...] EVERY MORNING 30 Tablet 5 05/26/2024 Active Losartan Potassium 50 MG Oral Tablet (Cozaar)Indicatio ns:HTN, goal below 140/90 TAKE 1 TABLET BY MOUTH EVERY MORNING 30 Tablet 5 11/07/2023 05/26/20 24 Discontinued Hospital, Clinic, or Other Facility Administered Medication Ordered Dose Route Frequency Start Date End Date Status Albuterol Sulfate (Proventil) (2.5 MG/3ML) 0.083% inhalation solution 2.5 mgIndications:ILD (interstitial lung disease) (HCC),Hypersensitivity pneumonitis (HCC),COPD, group B, by GOLD 2017 classification ([facility]),Dyspnea on exertion,Chronic cough 2.5 mg [...] infarct. Mri 01/14/2007 Mri done at [facility] Statin intolerance 07/27/2007 Overview: Hepatitis with Zocor [...] infarct. Mri 01/14/2007 Mri done at [facility] Cerebrovascular event, ill-d efined, within last 8 weeks 02/23/2007 11/17/2008 Overview: Modified per CVA protocol #8 Chronic rhinitis 09/16/2005 12/31/2017 Deviated nasal septum 03/27/20052017 Acquired deformity of nose 03/27/200508/31/2016 NASAL & SINUS DIS NEC 03/27/20052016 Other chronic sinusitis 03/27/200508/2018 CHRONIC LYMPHOID LEUKEMIA [facility] MENTION OF REMISSION 02/25/2005 04/14/2018 ADVANCE [...] No 12/24/2022 documented as of this encounter Miscellaneous Notes * Telephone Encounter - Darren Carpio [facility] - 05/26/2024 6:31 AM EDTSigned Prescriptions: Disp Refills Losartan Potassium 50 MG Oral Tablet (Coza*30 Tab*5 Sig: TAKE 1 TABLET BY MOUTH EVERY MORNINGAuthorizing Provider: JUDE SWARTZ User: DARREN CARPIO documented in this encounter Plan of Treatment Upcoming Encounters Date Type Department Care Team (Late st Contact Info) Description 05/26/2024 10:00 AM EDT Office Visit Pulmonary Medicine, [facility] [address] [facility] [place] [address] Phillip Hernandez MD [address] [place] [phone] 05/26/2024 11:30 AM EDT PulmDiagnostic Pulmonary Function Lab, [facility] [address] [facility] [place] [address] [place], [address] [facility] [place] [address] 05/28/2024 1:00 PM EDT Office Visit Dermatology [facility] [address] [place] [address] Vincent Buck MD [address] [place] [address] 06/02/2024 9:30 AM EDT Office Visit Hematology/Oncology [facility] [address] [place] [phone] Lucien Jamil MD [address] [place] [address] 06/30/2024 9:00 AM EST Pharmacy Pharmacy Hematology Oncology [facility] [address] [place] [address] [facility] Hem/Onc [address] [place] [address] 07/19/2024 12:00 PM EST Office Visit Pulmonary Medicine, [facility] [address] [facility] [place], [place] [address] Tomi Hayes DO [address] [place] [address] 09/27/2024 3:30 PM EST Office Visit [facility]iology, [facility] [place] [address] Cuauhtemoc Jo, DO [address] [place] [address] 11/22/2024 11:00 AM EDT Office Visit Cardiology, [facility] [address] [place] [address] Cuauhtemoc Jo, DO [address] [place] [address] 12/03/2024 11:15 AM EDT Office Visit Otolaryngology [facility] [address] [place] [address] Susanne Thrasher MD [address] [place] [address] Health Maintenance Due Date Last Done Comments COVID-19 Vaccine (#1) 02/07/1945 Zoster Vaccines (1 of 2) 02/07/1959 Adult Wellness Visit 02/07/2006 CKD PHOS USE SMARTSET 04480 11/29/202311/03, 11/07/2022, 10/16/2021, Additional history exists Influenza Vaccine (FLU shot) (#1) 2024 Albumin/Creatinine Ratio 05/22/2024 023, 05/09/2022, 09/17/1999 Depression Screening 05/22/2024 05/22/2023 GFR 11/05/2024 05/07/2024, 04/04, 04/06/2024, Additional history exists DTap/Tdap Vaccines (4 - Td or Tdap) 12/01/2024 12/01/2014, 12/01/2014, 12/01/2014 CKD HGB USE SMARTSET 83135 05/07/202505/07, 05/07/2024, 04/22/2024, Additional history exists O2 [...] this encounter Medical Devices Implanted Type Area Aircraft Tool Maker Device Identifier Shelf Expiration Date Model / Serial / Lot Valve Korey 3 Ultra 26mm - [id number] Implanted:Qty: 1 on 12/24/2022 by Jesse Tanner [place] [facility] [employer] [id number] 07/03/2023 [id number] / / Lead Pace Selectsecure 3830-69 - [id number] Implanted:Qty: 1 on 12/26/2022 by Keily Kelley IV, MD at [facility] [employer] : CRM [id number] 11/19/2024 [id number] / [id number] / [id number] Lead Novus Bipolar 52cm - [id number] Implanted:Qty: 1 on 12/26/2022 by Keily Kelley IV, MD at [facility] [employer] : CRM [id number] 10/10/2024 5076- 52 / [id number] / [id number] Pacemaker Parul Xt [facility] - [id number] Implanted:Qty: 1 on 12/26/2022 by Keily Kelley IV, MD at [facility] [employer] [id number] 05/17/2024 [id number] / [id number] / [id number] documented as of this encounter Visit Diagnoses Diagnosis HTN, goal below 140/90 Unspecified essential hypertension documented in this encounter Advance Directives * Full Code (Latest Code Status on File) Date Activated Date Inactivated Comments 12/24/2022 11:13 AM 12/27/2022 10:05 PM This order reflects the patients wishes and were consensually agreed upon. Question Answer Comments Discussion of Advance Directives occurred with: Patient Care Teams Bisque Placer Relationship Specialty Start Date End Date Vincent Slaughter MD [address] [place] [address] PCP - General Internal Medicine 05/22/21 documented as of this encounter
--- OUTSIDE RECORDS SUMMARY | 2024-08-26 09:41 | External Medical Summary | Summary of Care ---
Author Name Unknown Organization [facility] Address [address] [place] [address] Phone [phone] Care Team Providers Care Fisheries Director Name Role Phone Vincent Slaughter MD Primary Care Provider + Reason for Visit * Reason Comments Outpatient Testing Encounter Details Date Type Department Care Team (Late st Contact Info) Description 05/07/2024 12:50 PM EDT Laboratory Laboratory [facility] [address] [place] [address] [facility] [address] [place] [address] CLL (chronic lymphocytic leukemia) (HCC) Allergies Active [...] 0.1 % Nasal Solution (Astelin) Administer 1 [place] into nostril in the morning and 1 [place] before bedtime. 30 mL 12 11/22/2022 Active [...] this for 7 days. 14 Capsule 05/03/2024 05/10/2024 Active Fexofenadine HCl 180 MG Oral Tablet (Yolanda) Take 1 Tablet by mouth in the morning. Active Montelukast Sodium 10 MG Oral Tablet (Singulair)Indicat ions:Post-nasal drainage,Allergic rhinitis, unspecified seasonality, unspecified trigger Take 1 Tablet by mouth in the morning. 30 Tablet 5 05/07/2024 Active Hospital, Clinic, or Other Facility Administered Medication Ordered Dose Route Frequency Start Date End Date Status Albuterol Sulfate (Proventil) (2.5 MG/3ML) 0.083% inhalation solution 2.5 mgIndications:ILD (interstitial lung disease) ([facility]),Hypersensitivity pneumonitis (HCC),COPD, group B, by GOLD 2017 classification ([facility]),Dyspnea on exertion,Chronic cough 2.5 mg NEBULIZER ONCE [...] infarct. Mri 01/14/2007 Mri done at [facility] Statin intolerance 07/27/2007 Overview: Hepatitis with Zocor [...] infarct. Mri 01/14/2007 Mri done at [facility] Cerebrovascular event, ill-d efined, within last 8 weeks 02/23/2007 11/17/2008 Overview: Modified per CVA protocol #8 Chronic rhinitis 09/16/2005 12/31/2017 Deviated nasal septum 03/27/20052017 Acquired deformity of nose 03/27/2005 1 08/31/2016 NASAL & SINUS DIS NEC 03/27/20052016 Other chronic sinusitis 03/27/200508/2018 CHRONIC LYMPHOID LEUKEMIA [facility] MENTION OF REMISSION 02/25/2005 04/14/2018 ADVANCE DIRECTIVE [...] Description 05/10/2024 1:00 PM EDT Office Visit MOHS Surgery [facility] [address] [facility] [place] [address] Candace Aguilar MD [address] [facility] [place] [address] 05/26/2024 10:00 AM EDT Office Visit Pulmonary Medicine, [facility] 132 [facility] [place] [address] Phillip Hernandez MD [facility] [place] [address] 05/28/2024 1:00 PM EDT Office Visit Dermatology [facility] [address] [facility] [place] [address] Vincent Buck MD [address] [facility] [place] [address] 06/02/2024 9:30 AM EDT Office Visit Hematology/Oncology [facility] [address] [facility] [place] [phone] Lucien Jamil MD [address] [facility] [place] [address] 07/19/2024 12:00 PM EST Office Visit Pulmonary Medicine, [facility] 132 [facility] [place] [address] Tomi Hayes DO [address] [place] [address] 09/27/2024 3:30 PM EST Office Visit Cardiology, [facility] 132 [facility] [place] [address] Cuauhtemoc Jo, DO [address] [facility] [place] [address] 11/22/2024 11:00 AM EDT Office Visit Cardiology, [facility] [address] [facility] [place] [address] Cuauhtemoc Jo, DO [address] [facility] [place] [address] 12/03/2024 11:15 AM EDT Office Visit Otolaryngology [facility] [address] [facility] [place] [address] Susanne Thrasher MD [address] [place] [address] Pending Results Name Type Priority Associated Diagnoses Date /Time COMPREHENSIVE METABOLIC PANEL Lab STAT CLL (chronic lymphocytic leukemia) ([facility]) 05/07/2024 12:48 PM EDT LD Lab Routine CLL (chronic lymphocytic leukemia) ([facility]) 05/07/2024 12:48 PM EDT Health Maintenance Due Date Last Done Comments Zoster Vaccines (1 of 2) 02/07/1959 Adult Wellness Visit 02/07/2006 CKD PHOS USE SMARTSET 27279 11/29/2023 04/02/2023, 11/07/2022, 10/16/2021, Additional history exists Influenza Vaccine (FLU shot) (#1) 2024 COVID-19 Vaccine (#1) 05/08/2024 Postpo john from 02/07/1945 (Unavailable) Albumin/Creatinine Ratio 05/22/2024 023, 05/09/2022, 09/17/1999 Depression Screening 05/22/2024 05/22/2023 GFR 10/20/2024 04/22/2024, 09/0 10/2023, 03/26/2024, Additional history exists DTap/Tdap Vaccines (4 - Td or Tdap) 12/01/2024 12/01/2014, 12/01/2014, 12/01/2014 CKD HGB USE SMARTSET 50728 04/22/202505/07, 05/07/2024, 04/22/2024, Additional history exists O2 ASSESSMENT [...] this encounter Medical Devices Implanted Type Area Refining Engineer Device Identifier Shelf Expiration Date Model / Serial / Lot Valve Korey 3 Ultra 26mm - [id number] Implanted:Qty: 1 on 12/24/2022 by Jesse Tanner MD at [facility] [place] [employer] [id number] 07/03/2023 [id number] / / Lead Pace Selectsecure 3830-69 - [id number] Implanted:Qty: 1 on 12/26/2022 by Keily Kelley IV, MD at [facility] [employer] : [place] [id number] 11/19/2024 [id number] 9 / [id number] / [id number] Lead Novus Bipolar 52cm - [id number] Implanted:Qty: 1 on 12/26/2022 by Keily Kelley IV, MD at [facility] [employer] : [place] [id number] 10/10/2024 5076- 52 / [id number] / [id number] Pacemaker [place] Xt Dr Kwesi [facility] - [id number] Implanted:Qty: 1 on 12/26/2022 by Keily Kelley IV, MD at [facility] [employer] [id number] 05/17/2024 W1DR01 / [id number] / [id number] documented as of this encounter Procedures Procedure Name Priority Date/Time Associated Diagnosis Comments DIFFERENTIAL, AUTOMATED STAT 05/07/2024 12:48 PM EDT CLL (chronic lymphocytic leukemia) (HCC) CBC STAT 05/07/2024 12:48 PM EDT CLL (chronic lymphocytic leukemia) ([facility]) CBC STAT 05/07/2024 12:48 PM EDT CLL (chronic lymphocytic leukemia) ([facility]) DIFFERENTIAL, TECHNOLOGIST REVIEW Routine 05/07/2024 12:48 PM EDT CLL (chronic lymphocytic leukemia) ([facility]) documented in this encounter Results * (ABNORMAL) DIFFERENTIAL, TECHNOLOGIST REVIEW (05/07/2024 12:48 PM EDT) WBC 25.83(H) 4.00 - 10.80 K/uL 05/07/2024 1:02 PM EDT [facility] 56-02 Neutrophils % 15.0(L) 40.0 - 75.0 % 05/07/2024 1:02 PM EDT [facility] 56-02 Lymphocytes % 81.0(H) 18.0 - 42.0 % 05/07/2024 1:02 PM EDT [facility] 56-02 Monocytes % 3.0 1.0 - 11.0 % 05/07/2024 1:02 PM EDT [facility] 56-02 Eosinophils % 1.0 0.0 - 6.0 % 05/07/2024 1:02 PM EDT [facility] 56-02 Absolute Neutrophils 3.87 1.80 - 7.70 K/uL 05/07/2024 1:02 PM EDT [facility] 56-02 Absolute Lymphocytes 20.92(H) 1.00 - 4.80 K/uL 05/07/2024 1:02 PM EDT [facility] 56 Absolute Monocytes 0.77 0.00 - 1.10 K/uL 05/07/2024 1:02 PM EDT [facility] 56 Absolute Eosinophils 0.26 0.00 - 0.70 K/uL 05/07/2024 1:02 PM EDT [facility] 56 nRBCs 05/07/2024 1:02 PM EDT [facility] 56 Reactive Lymphocytes Present(A ) None Seen 05/07/2024 1:02 PM EDT [facility] 56- Smudge Cells Present(A ) None Seen 05/07/2024 1:02 PM EDT [facility] 56 Blood Venous blood specimen / Unknown Venipuncture / Unknown 05/07/2024 12:48 PM EDT 05/07/2024 12:48 PM EDT Lucien Jamil MD LAB BLOOD ORDERA BLES [facility] [address] [place] [address] * DIFFERENTIAL, AUTOMATED (05/07/2024 12:48 PM EDT) Blood Venous blood specimen / Unknown Venipuncture / Unknown 05/07/2024 12:48 PM EDT 05/07/2024 12:48 PM EDT Lucien Jamil MD LAB BLOOD ORDERA BLES [facility] [address] [place] [address] * (ABNORMAL) CBC (05/07/2024 12:48 PM EDT) [facility] WBC 25.83(H) 4.00 - 10.80 K/uL 05/07/2024 1:02 PM EDT [facility] 56 RBC 3.70 4.50 - 5.25 M/uL 05/07/2024 1:02 PM EDT [facility] 56 HGB 11.8(L) 14.0 - 16.8 g/dL 05/07/2024 1:02 PM EDT [facility] 56 HCT 37.2(L) 40.0 - 48.4 % 05/07/2024 1:02 PM EDT [facility] 56 MCV 100.5 82.0 - 99.5 fL 05/07/2024 1:02 PM EDT [facility] 56- MCH 31.9 27.0 - 34.0 pg 05/07/2024 1:02 PM EDT [facility] 56- MCHC 31.7 32.0 - 36.0 g/dL 05/07/2024 1:02 PM EDT [facility] 56 RDW 14.3 11.5 - 15.5 % 05/07/2024 1:02 PM EDT [facility] 56 PLT 114(L) 140 - 400 K/uL 05/07/2024 1:02 PM EDT [facility] 56 MPV 9.0 6.6 - 11.1 fL 05/07/2024 1:02 PM EDT [facility] 56 Blood Venous blood specimen / Unknown Venipuncture / Unknown 05/07/2024 12:48 PM EDT 05/07/2024 12:48 PM EDT Lucien Jamil MD LAB BLOOD ORDERA BLES [facility] [address] [facility] [address] documented in this encounter Visit Diagnoses Diagnosis [...] Advance Directives occurred with: Patient Care Teams Fisheries Director Relationship Specialty Start Date End Date Vincent Slaughter MD [address] [facility] [address] PCP - General Internal Medicine 05/22/21 documented as of this encounter
--- OUTSIDE RECORDS SUMMARY | 2024-08-26 09:41 | External Medical Summary ---
Author Name Unknown Address Unknown Organization K09:[facility] [address] [place] [address] Laboratory Report Ordering Provider Test Date Status CHAPMAN,KAMI 05/07/2024 12:48:25 Final 2 times a week for 3-6 weeks , then every 1-2 weeks. Observation Date Value Abnormality Reference (Units ) Status SYNC LEUKOCYTES IN BLOOD BY AUTOMATED COUNT 05/07/2024 12:48:25 25.83 Above high normal 4.00-10.80 (K/uL) Final Neutrophils/100 leukocytes in Blood by Manual count 05/07/2024 12:48:25 15.0 Below low normal 40.0-75.0 (%) Final Lymphocytes/100 leukocytes in Blood by Manual count 05/07/2024 12:48:25 81.0 Above high normal 18.0-42.0 (%) Final Monocytes/100 leukocytes in Blood by Manual count 05/07/2024 12:48:25 3.0 1.0-11.0 (%) Final Eosinophils/100 leukocytes in Blood by Manual count 05/07/2024 12:48:25 1.0 0.0-6.0 (%) Final Neutrophils [#/volume] in Blood by Manual count 05/07/2024 12:48:25 3.87 1.80-7.70 (K/uL) Final Lymphocytes [#/volume] in Blood by Manual count 05/07/2024 12:48:25 20.92 Above high normal 1.00-4.80 (K/uL) Final Monocytes [#/volume] in Blood by Manual count 05/07/2024 12:48:25 0.77 0.00-1.10 (K/uL) Final Eosinophils [#/volume] in Blood by Manual count 05/07/2024 12:48:25 0.26 0.00-0.70 (K/uL) Final Nucleated erythrocytes/100 leukocytes [Ratio] in Blood by Automated count 05/07/2024 12:48:25 Final Variant lymphocytes [Presence] in Blood by Light microscopy 05/07/2024 12:48:25 Present Abnormal None Seen Final Smudge cells [Presence] in Blood by Light microscopy 05/07/2024 12:48:25 Present Abnormal None Seen Final Performing Location [facility] [address] [place] [address]
--- OUTSIDE RECORDS SUMMARY | 2024-08-26 09:41 | External Medical Summary ---
Author Name Unknown Address Unknown Organization K01:[facility] - [address] [place] [address] Laboratory Report Ordering Provider Test Date Status KAMI CHAPMAN 05/07/2024 12:48:25 Final Observation Date Value Abnormality Reference (Units ) Status LDH 05/07/2024 12:48:25 256 Above high normal <= 250 (U/L) Final Performing Location [facility] - [address] [place] [address]
--- OUTSIDE RECORDS SUMMARY | 2024-08-26 09:41 | External Medical Summary ---
Author Name Unknown Address Unknown Organization K09:[facility] [address] [place] [address] Laboratory Report Ordering Provider Test Date Status KAMI CHAPMAN 05/07/2024 12:48:25 Final Observation Date Value Abnormality Reference (Units ) Status BUN 05/07/2024 12:48:25 21 Above high normal 6-20 (mg/dL) Final Creatinine 05/07/2024 12:48:25 1.3 Above high normal 0.6-1.2 (mg/dL) Final Glomerular filtration rate/1.73 sq M.predicted [Volume Rate/Area] in Serum, Plasma or Blood by Creatinine-based formula (CKD-EPI) 05/07/2024 12:48:25 52 Below low normal >=60 (mL/min) Final eGFR is calculated based on the CKD-EPI 2020 equation. Sodium 05/07/2024 12:48:25 143 135-146 (m mol/L) Final Potassium 05/07/2024 12:48:25 4.1 3.5-5.1 (m mol/L) Final Cl 05/07/2024 12:48:25 107 98-107 (mm ol/L) Final CO2 05/07/2024 12:48:25 25 22-32 (mmo l/L) Final Anion gap 05/07/2024 12:48:25 11 7-15 (mmol /L) Final Glucose 05/07/2024 12:48:25 98 70-120 (mg /dL) Final Albumin 05/07/2024 12:48:25 4.7 3.8-5.0 (g /dL) Final AST (Aspartate aminotransferase) 05/07/2024 12:48:25 24 10-50 (U/L) Fin al Alk Phos 05/07/2024 12:48:25 80 35-130 (U/ L) Final Bilirubin, Total 05/07/2024 12:48:25 0.4 <=1 .2 (mg/dL) Final Calcium 05/07/2024 12:48:25 9.6 8.4-10.2 ( mg/dL) Final Protein 05/07/2024 12:48:25 6.7 6.0-8.3 (g /dL) Final ALT (Alanine aminotransferase) 05/07/2024 12:48:25 <5 Below low normal 10-50 (U/L) Final Performing Location [facility] [address] [place] [address]
--- OUTSIDE RECORDS SUMMARY | 2024-08-26 09:41 | External Medical Summary | Summary of Care ---
Author Name Unknown Organization [facility] Address [address] [place] [address] Phone [phone] Care Team Providers Care Polishing Wheel Setter Name Role Phone Vincent Slaughter MD Primary Care Provider + Reason for Visit * Reason Comments Medication Management Encounter Details Date Type Department Care Team (Late st Contact Info) Description 05/07/2024 9:00 AM EDT Pharmacy Pharmacy Hematology Oncology [facility] [address], [place] [id number] [facility], [facility] Hem/Onc [address], [place] [id number] CLL (chronic lymphocytic leukemia) (FORMERLY [facility])* Allergies Active Allergy Reactions Criticality Noted Date [...] 0.1 % Nasal Solution (Astelin) Administer 1 [place] into nostril in the morning and 1 [place] before bedtime. 30 mL 12 11/22/2022 Active [...] with chronic bronchitis (HCC),ILD (interstitial lung disease) ([facility]) Inhale 1 Puff by mouth in the morning. 60 Blister Dosing Unit 3 03/01/2024 Active Metoprolol Succinate ER 25 MG Oral Tablet Extended Release 24 Hour (toPROL XL)Indications:Asc ending aorta dilatation ([facility]) TAKE 1 TABLET BY MOUTH TWICE DAILY [...] solution 2.5 mgIndications:ILD (interstitial lung disease) ([facility]),Hypersensitivity pneumonitis ([facility]),COPD, group B, by GOLD 2017 classification ([facility]),Dyspnea on exertion,Chronic cough 2.5 mg NEBULIZER ONCE [...] Mri 01/14/2007 Mri done at [facility] Statin intolerance 07/27/2007 Overview: Hepatitis with Zocor [...] Mri 01/14/2007 Mri done at [facility] Cerebrovascular event, ill-d efined, within last 8 [...] as of this encounter Progress Notes * Juanis Bay, [facility] - 05/07/2024 1:23 PM EDT MEDICATION THERAPY MANAGEMENT CHLORAMBUCIL (LEUKERAN) TREATMENT PROGRESS NOTE Luis M Tirado [id number] Patient Phone Numbers SPEAK LOUD HARD OF HEARING AND DIFFICULTY WITH TOUCH SCREEN PHONE Communication: Spoke to: Patient Current Treatment: Medication: Chlorambucil (Leukeran) Indication: CLL Dose: 2 mg daily Administration: by mouth without regards to food Start Date: 11/16/19; 11/30/23 Primary Runner Man: Dr. Jamil Prophylactic Meds: Allopurinol 200 mg [...] post-nasal drip No concerns, tolerating therapy well Changes to medication list since last visit? Yes, montelukast - no DDI Assessment and Plan: WBC/ALC elevated but stable ANC WNL Hgb low but improving PLT improving at grade 1 thrombocytopenia BUN elevated Encouraged to increase fluid intake Will monitor closely All other labs stable Continue chlorambucil Per discussion with Dr. Jamil, extend lab monitoring to monthly. Pt to repeat labs with OV 06/02 Mailed pt lab results per request Assessment of compliance: compliant Dose adjustment needed based on lab or adverse drug reaction? No Follow up: 06/02 OV/labs; 06/30 MT with labs Juanis Bay, PharmD, BCOP Clinical Pharmacist, [facility] Oral Chemotherapy [facility] 05/07/2024, 1:42 PM Pertinent labs: Latest Reference Range & Units 04/06/24 09:04/22/24 10:05/07/24 12:48 WBC 4.00 - 10.80 K/uL 27.49 (H) 22.54 (H) 25.83 (H) RBC 4.50 - 5.25 M/uL 3.79 3.70 3.70 HGB 14.0 - 16.8 g/dL 11.9 (L) 11.9 (L) 11.8 (L) HCT 40.0 - 48.4 % 37.8 (L) 36.8 (L) 37.2 (L) MCV 82.0 - 99.5 fL 99.7 99.5 100.5 MCH 27.0 - 34.0 pg 31.4 32.2 31.9 MCHC 32.0 - 36.0 g/dL 31.5 32.3 31.7 RDW 11.5 - 15.5 % 14.3 14.4 14.3 PLT 140 - 400 K/uL 114 (L) 98 (L) 114 (L) MPV 6.6 - 11.1 fL 9.0 9.2 9.0 CBC WITH WBC DIFFERENTIAL Rpt ! Rpt ! Rpt ! Absolute Neutrophils 1.80 - 7.70 K/uL 4.95 3.38 3.87 Absolute Lymphocytes 1.00 - 4.80 K/uL 22.27 (H) 18.26 (H) 20.92 (H) Latest Reference Range & Units 04/06/24 09:04/22/24 10:05/07/24 12:48 BUN 6 - 20 mg/dL 22 (H) 16 21 (H) CREATININE 0.6 - 1.2 mg/dL 1.4 (H) 1.3 (H) 1.3 (H) EGFR >=60 mL/min 49 (L) 55 (L) 52 (L) Latest Reference Range & Units 04/06/24 09:03 04/22/24 10:08 05/07/24 12:48 Albumin 3.8 - 5.0 g/dL 4.4 4.3 4.7 AST 10 - 50 U/L 22 23 24 ALT 10 - 50 U/L 7 (L) <5 (L) <5 (L) Alkaline Phosphatase 35 - 130 U/L 72 73 80 Bilirubin, Total <=1.2 mg/dL 0.6 0.5 0.4 Suggested Labs: Monitor LFTs, CBC/diff weekly, with WBC monitored twice weekly during the first 3 to 6 weeks of treatment Time Spent on Encounter: 6 - 10 minutes Encounter Group: Hematology Encounter Interventions Item Category: Oral Chemotherapy Chlorambucil Problem/Rationale: Safety: Needs additional monitoring - Medication Requires monitoring Pharmacist Intervention(s): Clarification with Provider, Drug Interaction Screen, Faxed labs, Lab monitoring, and Toxicity monitoring Magnitude of Intervention: Monitoring with direction (Level 1) * Leanna Strange OSA - 05/07/2024 9:00 AM EDT MEDICATION THERAPY MANAGEMENT CHLORAMBUCIL (LEUKERAN) TREATMENT PROGRESS NOTE Luis M Tirado [id number] Patient Phone Numbers SPEAK LOUD HARD OF HEARING AND DIFFICULTY WITH TOUCH SCREEN PHONE Communication: Spoke to: Patient Current Treatment: Medication: Chlorambucil (Leukeran) Indication: CLL Dose: 2 mg daily Administration: by mouth without regards to food Start Date: 11/16/19; 11/30/23 Primary Runner Man: Dr. Jamil Patient going to complete labs today via walk in at . Patient inquiring how he can get his lab results sent to him via mail. Informed him I did not know if this was a possibility or not as patients usually can see their testresults online with [facility] Hematology Oncology Oral Chemotherapy Clinic Medication Therapy Disease Management [facility] 05/07/24 10:04 AM Time Spent on Encounter: < 5 [...] 1:00 PM EDT Office Visit MOHS Surgery [facility] [address] [place], [place] [address] Candace Aguilar MD [address] [facility] [place] [address] 05/26/2024 10:00 AM EDT Office Visit Pulmonary Medicine, [facility] [address] [facility] [place] [phone] Phillip Hernandez MD [address] [facility] [place] [address] 05/28/2024 1:00 PM EDT Office Visit Dermatology [facility] [address] [place] [address] Vincent Buck MD [address] [facility] [place] [address] 06/02/2024 9:30 AM EDT Office Visit Hematology/Oncology [facility] [address] [facility] [place] [phone] Lucien Jamil MD [address] [facility] [place] [address] 06/30/2024 9:00 AM EST Pharmacy Pharmacy Hematology Oncology [facility] [address] [place] [address] [facility], [facility] Hem/Onc [address] [place] [address] 07/19/2024 12:00 PM EST Office Visit Pulmonary Medicine, [facility] [address] [facility] [place] [address] Tomi Hayes, DO [address] [place] [address] 09/27/2024 3:30 PM EST Office Visit Cardiology, [facility] [address] [facility] [place] [address] Cuauhtemoc Jo, DO [address] [facility] [place] [address] 11/22/2024 11:00 AM EDT Office Visit Cardiology, [facility] [address] [facility] [place] [address] Cuauhtemoc Jo, [address] [facility] [place] [address] 12/03/2024 11:15 AM EDT Office Visit Otolaryngology [facility] [address] [facility] [place] [address] Susanne Thrasher MD [address] [facility] [place] [address] Health Maintenance Due Date Last Done Comments Zoster Vaccines (1 of 2) 02/07/1959 Adult Wellness Visit 02/07/2006 CKD PHOS USE SMARTSET 10178 11/29/202311/03, 11/07/2022, 10/16/2021, Additional history exists Influenza Vaccine (FLU shot) (#1) 2024 COVID-19 Vaccine (#1) 05/08/2024 Postpo john from 02/07/1945 (Unavailable) Albumin/Creatinine Ratio 05/22/2024 023, 05/09/2022, 09/17/1999 Depression Screening 05/22/2024 05/22/2023 GFR 11/05/2024 05/07/2024, 04/04, 04/06/2024, Additional history exists DTap/Tdap Vaccines (4 - Td or Tdap) 12/01/2024 12/01/2014, 12/01/2014, 12/01/2014 CKD HGB USE SMARTSET 84267 05/07/202505/07, 05/07/2024, 04/22/2024, Additional history exists O2 [...] this encounter Medical Devices Implanted Type Area Freelance Recruiter Device Identifier Shelf Expiration Date Model / Serial / Lot Valve Korey 3 Ultra 26mm - [id number] Implanted:Qty: 1 on 12/24/2022 by Jesse Tanner [place] [facility] [employer] [id number] 07/03/2023 [id number] / / Lead Pace Selectsecure 3830-69 - [id number] Implanted:Qty: 1 on 12/26/2022 by Keily Kelley IV, MD at [facility] [place] [employer] : CRM [id number] 11/19/2024 [id number] 9 / [id number] / [id number] Lead Novus Bipolar 52cm - [id number] Implanted:Qty: 1 on 12/26/2022 by Keily Kelley IV, MD at [facility] [employer] : CRM [id number] 10/10/2024 5076- 52 / [id number] / [id number] Pacemaker Parul Xt [facility] - [id number] Implanted:Qty: 1 on 12/26/2022 by Keily Kelley IV, MD at [facility] [employer] [id number] 05/17/2024 [id number] / [id number] / [id number] documented as of this encounter Visit Diagnoses [...] Advance Directives occurred with: Patient Care Teams Polishing Wheel Setter Relationship Specialty Start Date End Date Vincent Slaughter MD [address] [facility] [place] [address] PCP - General Internal Medicine 05/22/21 documented as of this encounter
--- OUTSIDE RECORDS SUMMARY | 2024-08-26 09:41 | External Medical Summary | Summary of Care ---
Author Name Unknown Organization [facility] Address [address] [place] [address] Phone [phone] Care Team Providers Care Research Clerk Name Role Phone Vincent Slaughter MD Primary Care Provider + Reason for Visit * Reason Comments Oxygen Assessment 6 MINUTE WALK Encounter Details Date Type Department Care Team (Latest Contact Info) Description 05/26/2024 11:30 AM EDT PulmDiagnostic Pulmonary Function Lab, [facility] [address] [place] [address] [place], [address] [address] [place] [address] Dyspnea on exertion* Allergies Active Allergy Reactions [...] 0.1 % Nasal Solution (Astelin) Administer 1 [place] into nostril in the morning and 1 [place] before bedtime. 30 mL 12 11/22/2022 Active [...] (HCC),COPD, group B, by GOLD 2017 classification ([facility]),Dyspnea on exertion,Chronic cough 2.5 mg NEBULIZER ONCE [...] hemisphere infarct. Mri 01/14/2007 Mri done at [facility] Statin intolerance 07/27/2007 Overview: Hepatitis with [...] hemisphere infarct. Mri 01/14/2007 Mri done at [facility] Cerebrovascular event, ill-d efined, within last [...] No 12/24/2022 documented as of this encounter Nursing Notes * Miles Morris RRT - 05/26/2024 10:50 AM EDT Luis M Tirado was identified by name, Date of : (1940), and . Vitals were obtained from office visit prior to testing. Exercise oximetry performed on room air x 6 minutes. Pt ambulated 1080 feet/ 329 meters. No rest periods were required. Lowest SPO2 on room air was 95%. documented in this encounter Plan of Treatment Upcoming Encounters Date Type Department Care Team (Late st Contact Info) Description 05/28/2024 1:00 PM EDT Office Visit Dermatology [facility] [address] [place] [address] Vincent Buck MD [address] [place] [address] 06/02/2024 9:30 AM EDT Office Visit Hematology/Oncology [facility] [address] [place] [address] [phone] Lucien Jamil MD [address] [place] [address] 06/30/2024 9:00 AM [facility] Pharmacy Pharmacy Hematology Oncology [address] [address] [facility] Hem/Onc [address] [facility] [place] [address] 09/27/2024 3:30 PM EST Office Visit Cardiology, [facility] [address] [facility] [place] [address] Cuauhtemoc Jo, DO [address] [facility] [place] [address] 11/22/2024 11:00 AM EDT Office Visit Cardiology, [facility] [address] [facility] [place] [address] Cuauhtemoc Jo, DO [address] [facility] [place] [address] 11/30/2024 12:00 PM EDT Office Visit Pulmonary Medicine, [facility] [address] [facility] [place] [address] Phillip Hernandez MD [address] [facility] [place] [address] 12/03/2024 11:15 AM EDT Office Visit Otolaryngology [facility] [address] [facility] [place] [address] Susanne Thrasher MD [address] [facility] [place] [address] Health Maintenance Due Date Last Done Comments COVID-19 Vaccine (#1) 02/07/1945 Zoster Vaccines (1 of 2) 02/07/1959 Adult Wellness Visit 02/07/2006 CKD PHOS USE SMARTSET 22450 11/29/2023 042 02/2023, 11/07/2022, 10/16/2021, Additional history exists Influenza Vaccine (FLU shot) (#1) 2024 Albumin/Creatinine Ratio 05/22/2024 023, 05/09/2022, 09/17/1999 Depression Screening 05/22/2024 05/22/2023 GFR 11/05/2024 05/07/2024, 04/04, 04/06/2024, Additional history exists DTap/Tdap Vaccines (4 - Td or Tdap) 12/01/2024 12/01/2014, 12/01/2014, 12/01/2014 CKD HGB USE SMARTSET 04543 05/07/202505/07, 05/07/2024, 04/22/2024, Additional history exists O2 [...] this encounter Medical Devices Implanted Type Area Professor Of Sport Management Device Identifier Shelf Expiration Date Model / Serial / Lot Valve Korey 3 Ultra 26mm - [id number] Implanted:Qty: 1 on 12/24/2022 by Jesse Tanner MD [place] [facility] [place] [employer] [id number] 07/03/2023 [id number] / / Lead Pace Selectsecure 3830-69 - [id number] Implanted:Qty: 1 on 12/26/2022 by Keily Kelley IV, MD at [facility] [place] [employer] : CRM [id number] 11/19/2024 [id number] 9 / [id number] / [id number] Lead Novus Bipolar 52cm - [id number] Implanted:Qty: 1 on 12/26/2022 by Keily Kelley IV, MD at [facility] [place] [employer] : CRM [id number] 10/10/2024 5076- 52 / [id number] / [id number] Pacemaker Parul Xt [facility] - [id number] Implanted:Qty: 1 on 12/26/2022 by Keily Kelley IV, MD at [facility] [place] [employer] [id number] 05/17/2024 [id number] / [id number] / [id number] documented as of this encounter Visit Diagnoses [...] Advance Directives occurred with: Patient Care Teams Research Clerk Relationship Specialty Start Date End Date Vincent Slaughter MD [address] [place] [address] PCP - General Internal Medicine 05/22/21 documented as of this encounter
--- OUTSIDE RECORDS SUMMARY | 2024-08-26 09:42 | External Medical Summary ---
Author Name Unknown Address Unknown Organization K[facility] [place] [address] Laboratory Report Ordering Provider Test Date Status KAMI CHAPMAN 05/07/2024 12:48:25 Final 2 times a week for 3-6 weeks , then every 1-2 weeks. Observation Date Value Abnormality Reference (Units ) Status WBC, Total 05/07/2024 12:48:25 25.83 Above high normal 4 .00-10.80 (K/uL) Final RBC 05/07/2024 12:48:25 3.70 4.50-5.25 (M/uL) Final Hemoglobin 05/07/2024 12:48:25 11.8 Below low normal 14 .0-16.8 (g/dL) Final HCT 05/07/2024 12:48:25 37.2 Below low normal 40. 0-48.4 (%) Final MCV 05/07/2024 12:48:25 100.5 82.0-99.5 (fL) Final MCH 05/07/2024 12:48:25 31.9 27.0-34.0 (pg) Final MCHC 05/07/2024 12:48:25 31.7 32.0-36.0 (g/dL) Final RDW 05/07/2024 12:48:25 14.3 11.5-15.5 (%) Final Platelets 05/07/2024 12:48:25 114 Below low normal 140 -400 (K/uL) Final MPV 05/07/2024 12:48:25 9.0 6.6-11.1 ( fL) Final Performing Location [facility] [place] [address]
--- OUTSIDE RECORDS SUMMARY | 2024-08-26 09:42 | External Medical Summary ---
Author Name Unknown Address Unknown Organization [facility]09[facility] [address] [place] [address] Laboratory Report Ordering Provider Test Date Status CHAPMAN,KAMI 04/22/2024 10:08:41 Final 2 times a week for 3-6 weeks , then every 1-2 weeks. Observation Date Value Abnormality Reference (Units ) Status SYNC LEUKOCYTES IN BLOOD BY AUTOMATED COUNT 04/22/2024 10:08:41 22.54 Above high normal 4.00-10.80 (K/uL) Final Neutrophils/100 leukocytes in Blood by Manual count 04/22/2024 10:08:41 15.0 Below low normal 40.0-75.0 (%) Final Lymphocytes/100 leukocytes in Blood by Manual count 04/22/2024 10:08:41 81.0 Above high normal 18.0-42.0 (%) Final Monocytes/100 leukocytes in Blood by Manual count 04/22/2024 10:08:41 3.0 1.0-11.0 (%) Final Eosinophils/100 leukocytes in Blood by Manual count 04/22/2024 10:08:41 1.0 0.0-6.0 (%) Final Neutrophils [#/volume] in Blood by Manual count 04/22/2024 10:08:41 3.38 1.80-7.70 (K/uL) Final Lymphocytes [#/volume] in Blood by Manual count 04/22/2024 10:08:41 18.26 Above high normal 1.00-4.80 (K/uL) Final Monocytes [#/volume] in Blood by Manual count 04/22/2024 10:08:41 0.68 0.00-1.10 (K/uL) Final Eosinophils [#/volume] in Blood by Manual count 04/22/2024 10:08:41 0.23 0.00-0.70 (K/uL) Final Nucleated erythrocytes/100 leukocytes [Ratio] in Blood by Automated count 04/22/2024 10:08:41 Final Variant lymphocytes [Presence] in Blood by Light microscopy 04/22/2024 10:08:41 Present Abnormal None Seen Final Smudge cells [Presence] in Blood by Light microscopy 04/22/2024 10:08:41 Present Abnormal None Seen Final Performing Location [facility] [address] [place] [address]
--- OUTSIDE RECORDS SUMMARY | 2024-08-26 09:42 | External Medical Summary | Summary of Care ---
Author Name Unknown Organization [facility] Address [address] [place] [address] Phone [phone] Care Team Providers Care Medicaid Billing Specialist Name Role Phone Vincent Slaughter MD Primary Care Provider + Reason for Visit * Reason Comments Outpatient Testing Encounter Details Date Type Department Care Team (Late st Contact Info) Description 04/22/2024 10:10 AM EDT Laboratory Laboratory [facility] [address] [place] [address] [facility] Lab Scenery [address] [place] [address] CLL (chronic lymphocytic leukemia) (HCC) Allergies Active Allergy Reactions Criticality Noted Date Comments Heparin High 01/01/2023 ?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 Active diphenhydrAMINE HCl 25 MG Oral Tablet Take [...] 0.1 % Nasal Solution (Astelin) Administer 1 Thorpe into nostril in the morning and 1 Thorpe before bedtime. 30 mL 12 11/22/2022 Active [...] 11/07/2023 Active Chlorambucil 2 MG Oral Tablet (Leukeran)Indicatio ns:CLL (chronic lymphocytic leukemia) (HCC) Take 1 Tablet by mouth in the morning. Take medication on an empty stomach.. 30 Tablet 5 11/21/2023 Active methylPREDNISolone 4 MG Oral Tablet Therapy Pack (Medrol Dosepack)Indication s:Sensorineural hearing loss (SNHL) of both ears,Dysfunction of both eustachian tubes follow package directions 21 Tablet 01/06/2024 Active Trelegy Ellipta 200-62.5-25 MCG/ACT Aerosol Powder [...] before bedtime 180 Tablet 1 04/10/2024 Active Hospital, Clinic, or Other Facility Administered Medication Ordered Dose Route Frequency Start Date End Date Status Albuterol Sulfate (Proventil) (2.5 MG/3ML) 0.083% inhalation solution 2.5 mgIndications:ILD (interstitial lung disease) (HCC),Hypersensitivity pneumonitis (HCC),COPD, group B, by GOLD 2017 classification (HCC),Dyspnea on exertion,Chronic cough 2.5 mg NEBULIZER ONCE PRN 01/07/2024 01/06/2025 Ac tive documented as of this encounter (statuses as of 04/22/2024) Active Problems Problem Noted Date Diagnosed Date [...] at [facility] Statin intolerance 07/27/2007 Overview: Hepatitis with Zocor Other sleep apnea 06/01/2001 documented as of this encounter (statuses as of 04/22/2024) Resolved Problems Problem Noted Date Diagnosed Date [...] as of this encounter (statuses as of 04/22/2024) Immunizations Name Administration Dates Next Due Pneumococcal [...] Care Team (Late st Contact Info) Description 04/23/2024 9:00 AM EDT Pharmacy Pharmacy Hematology Oncology [facility] [address] [place] [address] [facility], [facility] Hem/Onc [address] [place] [address] 04/26/2024 3:20 PM EDT Office Visit Pulmonary Medicine, [facility] [address] [facility] [place] [address] Tomi Hayes [address] [place] [address] 05/03/2024 7:30 AM EDT Office Visit MOHS Surgery [facility] [address] [facility] [place] [address] Candace Aguilar MD [address] [place], [place] [address] [address] 05/05/2024 12:40 PM EDT Office Visit General Internal Medicine [facility] [address] Nazario Whaley, [address] [address] 05/06/2024 3:00 PM EDT Office Visit Cardiology, [facility] [address] [facility] [place] [address] Cuauhtemoc Jo, DO [address] [place] [address] 05/28/2024 1:00 PM EDT Office Visit Dermatology [facility] [address] [place] [address] Vincent Buck MD [address] [place], [place] [address] 06/02/2024 9:30 AM EDT Office Visit Hematology/Oncology [facility] [address] [place] [address] Lucien Jamil MD [address] [place] [address] 09/27/2024 3:30 PM EST Office Visit Cardiology, [facility] [address] [place] [address] Cuauhtemoc Jo, DO [address] [place] [address] 12/03/2024 11:15 AM EDT Office Visit Otolaryngology [facility] [address] [place] [address] Susanne Thrasher MD [address] [place] [address] Pending Results Name Type Priority Associated Diagnoses Date /Time CBC WITH WBC DIFFERENTIAL Lab STAT CLL (chronic lymphocytic leukemia) ([facility]) 04/22/2024 10:08 AM EDT COMPREHENSIVE METABOLIC PANEL Lab STAT CLL (chronic lymphocytic leukemia) ([facility]) 04/22/2024 10:08 AM EDT CBC Lab STAT CLL (chronic lymphocytic leukemia) ([facility]) 04/22/2024 10:08 AM EDT DIFFERENTIAL, AUTOMATED Lab STAT CLL (chronic lymphocytic leukemia) ([facility]) 04/22/2024 10:08 AM EDT Health Maintenance Due Date Last Done Comments COVID-19 Vaccine (#1) 02/07/1945 Zoster Vaccines (1 of 2) 02/07/1959 Adult Wellness Visit 02/07/2006 CKD PHOS USE SMARTSET 86869 11/29/202311/03, 11/07/2022, 10/16/2021, Additional history exists Influenza Vaccine (FLU shot) (#1) 2024 Albumin/Creatinine Ratio 05/22/2024 023, 05/09/2022, 09/17/1999 Depression Screening 05/22/2024 05/22/2023 GFR 10/04/2024 04/06/2024, 03/05, 03/11/2024, Additional history exists DTap/Tdap Vaccines (4 - Td or Tdap) 12/01/2024 12/01/2014, 12/01/2014, 12/01/2014 O2 ASSESSMENT COMPLETED IN PAST YEAR FOR COPD 03/01/2025 03/01/2024 CKD HGB USE SMARTSET 24638 04/06/202504/06, 04/06/2024, 03/26/2024, Additional history exists Pneumococcal Vaccine: 65+ Years [...] this encounter Medical Devices Implanted Type Area Grade And Center Marker Device Identifier Shelf Expiration Date Model / Serial / Lot Valve Korey 3 Ultra 26mm - [id number] Implanted:Qty: 1 on 12/24/2022 by Jesse Tanner MD at [facility] [employer] [id number] 07/03/2023 [id number] / / Lead Pace Selectsecure 3830-69 - [id number] Implanted:Qty: 1 on 12/26/2022 by Keily Kelley IV, MD at [facility] [employer] : CRM [id number] 11/19/2024 [id number] / [id number] / [id number] Lead Novus Bipolar 52cm - [id number] Implanted:Qty: 1 on 12/26/2022 by Keily Kelley IV, MD at [facility] [employer] : CRM [id number] 10/10/2024 5076- 52 / [id number] / [id number] Pacemaker Parul Xt Dr Mri Wrls - [id number] Implanted:Qty: 1 on 12/26/2022 by Keily Kelley IV, MD at [facility] [employer] [id number] 05/17/2024 [id number] / [id number] / [id number] documented as of this encounter Visit Diagnoses [...] Advance Directives occurred with: Patient Care Teams Medicaid Billing Specialist Relationship Specialty Start Date End Date Vincent Slaughter MD [address] [place] [address] PCP - General Internal Medicine 05/22/21 documented as of this encounter
--- OUTSIDE RECORDS SUMMARY | 2024-08-26 09:42 | External Medical Summary | Summary of Care ---
Author Name Unknown Organization [facility] Address [address] [place] [address] Phone [phone] Care Team Providers Care Cd Manufacturing Supervisor Name Role Phone Vincent Slaughter MD Primary Care Provider + Reason for Visit * Reason Comments Medication Management Encounter Details Date Type Department Care Team (Late st Contact Info) Description 04/23/2024 9:00 AM EDT Pharmacy Pharmacy Hematology Oncology [facility] [address] [place], [place] [id number] [facility], [facility] Hem/Onc [address] [place], [place] [id number] CLL (chronic lymphocytic leukemia) ([facility])* Allergies Active Allergy Reactions Criticality Noted Date [...] 0.1 % Nasal Solution (Astelin) Administer 1 [place] into nostril in the morning and 1 [place] before bedtime. 30 mL 12 11/22/2022 Active [...] complication (HCC),Chronic bronchitis, unspecified chronic bronchitis type ([facility]),COPD (chronic obstructive pulmonary disease) with chronic bronchitis ([facility]),ILD (interstitial lung disease) ([facility]) Inhale 1 Puff by mouth in the morning. 60 Blister Dosing Unit 3 03/01/2024 Active Metoprolol Succinate ER 25 MG Oral Tablet Extended Release 24 Hour (toPROL XL)Indications:Asce nding aorta dilatation ([facility]) TAKE 1 TABLET BY MOUTH TWICE DAILY every morning and before bedtime 180 Tablet 1 04/10/2024 Active Hospital, Clinic, or Other Facility Administered Medication Ordered Dose Route Frequency Start Date End Date Status Albuterol Sulfate (Proventil) (2.5 MG/3ML) 0.083% inhalation solution 2.5 mgIndications:ILD (interstitial lung disease) ([facility]),Hypersensitivity pneumonitis ([facility]),COPD, group B, by GOLD 2017 classification ([facility]),Dyspnea on exertion,Chronic cough 2.5 mg NEBULIZER ONCE [...] hemisphere infarct. Mri 01/14/2007 Mri done at [facility] Statin intolerance 07/27/2007 Overview: Hepatitis with [...] hemisphere infarct. Mri 01/14/2007 Mri done at [facility] Cerebrovascular event, ill-d efined, within [...] this encounter Progress Notes * Juanis Bay, [facility] - 04/22/2024 12:08 PM EDT MEDICATION THERAPY MANAGEMENT CHLORAMBUCIL (LEUKERAN) TREATMENT PROGRESS NOTE Luis M Tirado [phone] Patient Phone Numbers SPEAK LOUD HARD OF HEARING AND DIFFICULTY WITH TOUCH SCREEN PHONE Communication: Spoke to: Patient Current Treatment: Medication: Chlorambucil (Leukeran) Indication: CLL Dose: 2 mg daily Administration: by mouth without regards to food Start Date: 11/16/19; 11/30/23 Primary Grinder Operator External Tool: Dr. Jamil Prophylactic Meds: Allopurinol 200 mg by mouth daily Interval History: Leukeran held 01/18/20 - 08/10/20 and 10/2021-11/29/23 due to declining WBC and side effects Per TE 11/14/23, WBC increasing and pt advised to resume chlorambucil Per MOHS OV 01/05/24, advised to continue triamcinolone cream to skin BID and continue vinegar soaks No concerns, tolerating therapy well Changes to medication list since last visit? No Assessment and Plan: WBC/ALC elevated but declining Hgb low but improving PLT stable at grade 1 thrombocytopenia BUN declining to WNL All other labs stable Continue chlorambucil and q2wk labs Assessment of compliance: compliant Dose adjustment needed based on lab or adverse drug reaction? No Follow up: 2 weeks Juanis Bay, PharmD, BCOP Clinical Pharmacist, [facility] Oral Chemotherapy [facility] 04/22/2024, 12:13 PM Pertinent labs: Latest Reference Range & Units 03/26/24 10:56 04/06/24 09:03 04/22/24 10:08 WBC 4.00 - 10.80 K/uL 23.69 (H) [...] K/uL 19.19 (H) 22.27 (H) 18.26 (H) Latest Reference Range & Units 03/26/24 10:56 04/06/24 09:03 04/22/24 10:08 BUN 6 - 20 mg/dL 17 22 (H) 16 CREATININE 0.6 - 1.2 mg/dL 1.3 (H) 1.4 (H) 1.3 (H) EGFR >=60 mL/min 52 (L) 49 (L) 55 (L) Latest Reference Range & Units 03/26/24 10:56 04/06/24 09:03 04/22/24 10:08 Albumin 3.8 - 5.0 g/dL 4.4 4.4 4.3 AST 10 - 50 U/L 19 22 23 ALT 10 - 50 U/L <5 (L) 7 (L) <5 (L) Alkaline Phosphatase 35 - 130 U/L 75 72 73 Bilirubin, Total <=1.2 mg/dL 0.7 0.6 0.5 Suggested Labs: Monitor LFTs, CBC/diff weekly, with WBC monitored twice weekly during the first 3 to 6 weeks of treatment Time Spent on Encounter: 6 - 10 minutes Encounter Group: Hematology Encounter Interventions Item Category: Oral Chemotherapy Chlorambucil Problem/Rationale: Safety: Needs additional monitoring - Medication Requires monitoring Pharmacist Intervention(s): Lab monitoring and Toxicity monitoring Magnitude of Intervention: Monitoring with direction (Level 1) documented in this encounter Plan of Treatment Upcoming Encounters Date Type Department Care Team (Late st Contact Info) Description 04/26/2024 3:20 PM EDT Office Visit Pulmonary Medicine, [facility] [address] [facility] [place] [address] Tomi Hayes [address] [place] [address] 05/03/2024 7:30 AM EDT Office Visit MOHS Surgery [facility] [address] [place] [address] Candace Aguilar MD [address] [place] [address] [place] [address] 05/05/2024 12:40 PM EDT Office Visit General Internal Medicine [facility] [address] [place] [address] Nazario Whaley, [address] [address] 05/06/2024 3:00 PM EDT Office Visit Cardiology, [facility] [address] [facility] [place] [address] Cuauhtemoc Jo, DO [address] [facility] [place] [address] 05/07/2024 9:00 AM EDT Pharmacy Pharmacy Hematology Oncology [facility] [address] [place] [address] [facility], [facility] Hem/Onc [address] [place] [address] 05/28/2024 1:00 PM EDT Office Visit Dermatology [facility] [address] [place] [address] Vincent Buck MD [address] [facility] [place] [address] 06/02/2024 9:30 AM EDT Office Visit Hematology/Oncology [facility] [address] [place] [id number] Lucien Jamil MD [address] [facility] [place] [address] 09/27/2024 3:30 PM EST Office Visit Cardiology, [facility] [address] [facility] [place] [address] Cuauhtemoc Jo DO [address] [place] [address] 12/03/2024 11:15 AM EDT Office Visit Otolaryngology [facility] [address] [place] [address] Susanne Thrasher MD [address] [place] [address] Health Maintenance Due Date Last Done Comments COVID-19 Vaccine (#1) 02/07/1945 Zoster Vaccines (1 of 2) 02/07/1959 Adult Wellness Visit 02/07/2006 CKD PHOS USE SMARTSET 34447 11/29/202311/03, 11/07/2022, 10/16/2021, Additional history exists Influenza Vaccine (FLU shot) (#1) 2024 Albumin/Creatinine Ratio 05/22/2024 023, 05/09/2022, 09/17/1999 Depression Screening 05/22/2024 05/22/2023 GFR 10/20/2024 04/22/2024, 09/0 10/2023, 03/26/2024, Additional history exists DTap/Tdap Vaccines (4 - Td or Tdap) 12/01/2024 12/01/2014, 12/01/2014, 12/01/2014 O2 ASSESSMENT COMPLETED IN PAST YEAR FOR COPD 03/01/2025 03/01/2024 CKD HGB USE SMARTSET 53212 04/22/202504/22, 04/22/2024, 04/06/2024, Additional history exists Pneumococcal Vaccine: 65+ Years [...] this encounter Medical Devices Implanted Type Area Field Sales Agent Device Identifier Shelf Expiration Date Model / Serial / Lot Valve Korey 3 Ultra 26mm - [id number] Implanted:Qty: 1 on 12/24/2022 by Jesse Tanner MD [place] [facility] [employer] [id number] 07/03/2023 [id number] / / Lead Pace Selectsecure 3830-69 - [id number] Implanted:Qty: 1 on 12/26/2022 by Keily Kelley IV, MD at [facility] [employer] : CRM [id number] 11/19/2024 [id number] 9 / [id number] / [id number] Lead Novus Bipolar 52cm - [id number] Implanted:Qty: 1 on 12/26/2022 by Keily Kelley IV, MD at [facility] [employer] : CRM [id number] 10/10/2024 5076- 52 / [id number] / [id number] Pacemaker [place] Xt Dr Orosco ls - [id number] Implanted:Qty: 1 on 12/26/2022 by Keily Kelley IV, MD at [facility] [employer] [id number] 05/17/2024 [id number] / [id number] / [id number] documented as of this encounter Visit Diagnoses [...] Advance Directives occurred with: Patient Care Teams Cd Manufacturing Supervisor Relationship Specialty Start Date End Date Vincent Slaughter MD [address] [place] [address] PCP - General Internal Medicine 05/22/21 documented as of this encounter
--- OUTSIDE RECORDS SUMMARY | 2024-08-26 09:42 | External Medical Summary | Summary of Care ---
Author Name Unknown Organization [facility] Address [address] [place] [address] Phone [phone] Care Team Providers Care Registered Radiologic Technologist Name Role Phone Vincent Slaughter MD Primary Care Provider + Reason for Visit * Reason Comments Medication Management Encounter Details Date Type Department Care Team (Late st Contact Info) Description 04/09/2024 9:00 AM EDT Pharmacy Pharmacy Hematology Oncology [facility] [address], [place] [id number] [facility] [place], [place], [facility] Hem/Onc [address], [place] [id number] CLL (chronic lymphocytic leukemia) ([facility])* Allergies Active Allergy Reactions Criticality Noted Date Comments Heparin High 01/01/2023 ?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 30 mL 12 11/22/2022 Active [...] the morning. 30 Tablet 5 05/23/2023 Active Metoprolol Succinate ER 25 MG Oral Tablet Extended Release 24 Hour (toPROL XL)Indications:Asce nding aorta dilatation (HCC) TAKE 1 TABLET BY MOUTH TWICE DAILY every morning and before bedtime 180 Tablet 1 07/29/2023 Active Triamcinolone Acetonide 0.1 % External Ointment [...] Oral Tablet (Leukeran)Indicatio ns:CLL (chronic lymphocytic leukemia) ([facility]) Take 1 Tablet by mouth in the [...] complication (HCC),Chronic bronchitis, unspecified chronic bronchitis type ([facility]),COPD (chronic obstructive pulmonary disease) with chronic bronchitis ([facility]),ILD (interstitial lung disease) ([facility]) Inhale 1 Puff by mouth in the morning. 60 Blister Dosing Unit 3 03/01/2024 Active Hospital, Clinic, or Other Facility Administered Medication Ordered Dose Route Frequency Start Date End Date Status Albuterol Sulfate (Proventil) (2.5 MG/3ML) 0.083% inhalation solution 2.5 mgIndications:ILD (interstitial lung disease) ([facility]),Hypersensitivity pneumonitis ([facility]),COPD, group B, by GOLD 2017 classification ([facility]),Dyspnea on exertion,Chronic cough 2.5 mg NEBULIZER ONCE PRN 01/07/2024 01/06/2025 Ac tive documented as of this encounter (statuses as of 04/09/2024) Active Problems Problem Noted Date Diagnosed Date [...] hemisphere infarct. Mri 01/14/2007 Mri done at [facility] Statin intolerance 07/27/2007 Overview: Hepatitis with Zocor Other sleep apnea 06/01/2001 documented as of this encounter (statuses as of 04/09/2024) Resolved Problems Problem Noted Date Diagnosed Date [...] hemisphere infarct. Mri 01/14/2007 Mri done at [facility] Cerebrovascular event, ill-d efined, within [...] as of this encounter (statuses as of 04/09/2024) Immunizations Name Administration Dates Next Due Pneumococcal [...] encounter Progress Notes * [place], [facility] - 04/09/2024 12:56 PM EDT MEDICATION THERAPY MANAGEMENT CHLORAMBUCIL (LEUKERAN) TREATMENT PROGRESS NOTE Luis M Tirado [phone] Patient Phone Numbers SPEAK LOUD HARD OF HEARING AND DIFFICULTY WITH TOUCH SCREEN PHONE Communication: Spoke to: Patient Current Treatment: Medication: Chlorambucil (Leukeran) Indication: CLL Dose: 2 mg daily Administration: by mouth without regards to food Start Date: 11/16/19; 11/30/23 Primary Door To Door Fundraising Collector: Dr. Jamil Prophylactic Meds: Allopurinol 200 mg [...] Assessment and Plan: WBC/ALC elevated but stable Hgb low but improving PLT improving at grade 1 thrombocytopenia BUN and creatinine elevated Encouraged pt to increase fluid intake Will monitor closely All other labs stable Continue chlorambucil and q2wk labs Assessment of compliance: compliant Dose adjustment needed based on lab or adverse drug reaction? No Follow up: 2 weeks [place], PharmD, BCOP Clinical Pharmacist, [facility] Oral Chemotherapy [facility] 04/09/2024, 1:13 PM Pertinent labs: Latest Reference Range & Units 03/11/24 08:41 03/26/24 10:56 04/06/24 09:03 WBC 4.00 - 10.80 K/uL 29.29 (H) 23.69 (H) 27.49 (H) RBC 4.50 - 5.25 M/uL 3.60 3.48 3.79 HGB 14.0 - 16.8 g/dL 11.5 (L) 11.0 (L) 11.9 (L) HCT 40.0 - 48.4 % 35.9 (L) 34.7 (L) 37.8 (L) MCV 82.0 - 99.5 fL 99.7 99.7 99.7 MCH 27.0 - 34.0 pg 31.9 31.6 31.4 MCHC 32.0 - 36.0 g/dL 32.0 31.7 31.5 RDW 11.5 - 15.5 % 14.9 14.7 14.3 PLT 140 - 400 K/uL 85 (L) 93 (L) 114 (L) MPV 6.6 - 11.1 fL 9.0 8.9 9.0 CBC WITH WBC DIFFERENTIAL Rpt ! Rpt ! Rpt ! Absolute Neutrophils 1.80 - 7.70 K/uL 3.22 4.03 4.95 Absolute Lymphocytes 1.00 - 4.80 K/uL 24.90 (H) 19.19 (H) 22.27 (H) Serum creatinine: 1.4 mg/dL (H) 04/06/24 0903 Estimated creatinine clearance: 36.4 mL/min (A) Latest Reference Range & Units 03/11/24 08:41 03/26/24 10:56 04/06/24 09:03 BUN 6 - 20 mg/dL 17 17 22 (H) Creatinine 0.6 - 1.2 mg/dL 1.2 1.3 (H) 1.4 (H) Estimated Glomerular Filtration Rate >=60 mL/min 58 (L) 52 (L) 49 (L) [facility] Reference Range & Units 03/11/24 08:41 03/26/24 10:56 04/06/24 09:03 Albumin 3.8 - 5.0 g/dL 4.6 4.4 4.4 AST 10 - 50 U/L 26 19 22 ALT 10 - 50 U/L 10 <5 (L) 7 (L) Alkaline Phosphatase 35 - 130 U/L 73 75 72 Bilirubin, Total <=1.2 mg/dL 0.4 0.7 0.6 Suggested Labs: Monitor LFTs, CBC/diff weekly, with WBC monitored twice weekly during the first 3 to 6 weeks of treatment Time Spent on Encounter: 6 - 10 minutes Encounter Group: Hematology Encounter Interventions Item Category: Oral Chemotherapy Chlorambucil Problem/Rationale: Safety: Needs additional monitoring - Medication Requires monitoring Pharmacist Intervention(s): Lab monitoring, Non-pharmacological intervention provided, and Toxicitymonitoring Magnitude of Intervention: Monitoring with direction (Level 1) documented in this encounter Plan of Treatment Upcoming Encounters Date Type Department Care Team (Late st Contact Info) Description 04/23/2024 9:00 AM EDT Pharmacy Pharmacy Hematology Oncology [facility] [address] [place] [address] [facility] [place], [place], [facility] Hem/Onc [address] [place] [address] 04/26/2024 8:00 AM EDT Office Visit MOHS Surgery [facility] [address] [place] [address] Candace Aguilar MD [address] [place] [address] 04/26/2024 3:20 PM EDT Office Visit Pulmonary Medicine, [facility] [address] [facility] [place] [address] Tomi Hayes [address] [place] [address] 05/05/2024 12:40 PM EDT Office Visit General Internal Medicine [facility] [address] [place] [address] Nazario Whaley, [address] [phone] 05/06/2024 3:00 PM EDT Office Visit Cardiology, [facility] [address] [place] [address] Cuauhtemoc Jo, [address] [place] [address] 05/28/2024 1:00 PM EDT Office Visit Dermatology [facility] [address] [place] [address] Vincent Buck MD [address] [place] [address] 06/02/2024 9:30 AM EDT Office Visit Hematology/Oncology [facility] [address] [place] [phone] Lucien Jamil MD [address] [facility] [place] [address] 09/27/2024 3:30 PM EST Office Visit Cardiology, [facility] [address] [place] [address] Cuauhtemoc Jo, [address] [place] [address] 12/03/2024 11:15 AM EDT Office Visit Otolaryngology [facility] [address] [place] [address] Susanne Thrasher MD [address] [place] [address] Health Maintenance Due Date Last Done Comments COVID-19 Vaccine (#1) 02/07/1945 Zoster Vaccines (1 of 2) 02/07/1959 Adult Wellness Visit 02/07/2006 CKD PHOS USE SMARTSET 59775 11/29/2023 04/2 02/2023, 11/07/2022, 10/16/2021, Additional history exists Influenza Vaccine (FLU shot) (#1) 2024 Albumin/Creatinine Ratio 05/22/2024 023, 05/09/2022, 09/17/1999 Depression Screening 05/22/2024 05/22/2023 GFR 10/04/2024 04/06/2024, 0810/2023, 03/11/2024, Additional history exists DTap/Tdap Vaccines (4 - Td or Tdap) 12/01/2024 12/01/2014, 12/01/2014, 12/01/2014 O2 ASSESSMENT COMPLETED IN PAST YEAR FOR COPD 03/01/2025 03/01/2024 CKD HGB USE SMARTSET 35136 04/06/202504/06, 04/06/2024, 03/26/2024, Additional history exists Pneumococcal [...] this encounter Medical Devices Implanted Type Area Type Proof Reproducer Device Identifier Shelf Expiration Date Model / Serial / Lot Valve Korey 3 Ultra 26mm - [id number] Implanted:Qty: 1 on 12/24/2022 by Jesse Tanner MD at [facility] [place] [employer] [id number] 07/03/2023 [id number] / / Lead Pace Selectsecure 3830-69 - [id number] Implanted:Qty: 1 on 12/26/2022 by Keily Kelley IV, MD at [facility] [place] [employer] : [place] [id number] 11/19/2024 [id number] / [id number] / [id number] Lead Novus Bipolar 52cm - [id number] Implanted:Qty: 1 on 12/26/2022 by Keily Kelley IV, MD at [facility] [place] [employer] : [place] [id number] 10/10/2024 5076- 52 / [id number] / [id number] Pacemaker [place] Xt Dr Orosco [facility] - [id number] Implanted:Qty: 1 on 12/26/2022 by Keily Kelley IV, MD at [facility] [place] [email or web address] [id number] 05/17/2024 [id number] / [id number] / [id number] documented as of this encounter Visit Diagnoses [...] Advance Directives occurred with: Patient Care Teams Registered Radiologic Technologist Relationship Specialty Start Date End Date Vincent Slaughter MD [address] [facility] [place] [address] PCP - General Internal Medicine 05/22/21 documented as of this encounter
--- OUTSIDE RECORDS SUMMARY | 2024-08-26 09:42 | External Medical Summary ---
Author Name Unknown Address Unknown Organization K[facility] [address] [place] [address] Laboratory Report Ordering Provider Test Date Status KAMI CHAPMAN 04/22/2024 10:08:41 Final Observation Date Value Abnormality Reference (Units ) Status BUN 04/22/2024 10:08:41 16 6-20 (mg/dL) Final Creatinine 04/22/2024 10:08:41 1.3 Above high normal 0.6-1.2 (mg/dL) Final Glomerular filtration rate/1.73 sq M.predicted [Volume Rate/Area] in Serum, Plasma or Blood by Creatinine-based formula (CKD-EPI) 04/22/2024 10:08:41 55 Below low normal >=60 (mL/min) Final eGFR is calculated based on the CKD-EPI 2020 equation. Sodium 04/22/2024 10:08:41 143 135-146 (m mol/L) Final Potassium 04/22/2024 10:08:41 4.1 3.5-5.1 (m mol/L) Final Cl 04/22/2024 10:08:41 106 98-107 (mm ol/L) Final CO2 04/22/2024 10:08:41 26 22-32 (mmo l/L) Final Anion gap 04/22/2024 10:08:41 11 7-15 (mmol /L) Final Glucose 04/22/2024 10:08:41 94 70-120 (mg /dL) Final Albumin 04/22/2024 10:08:41 4.3 3.8-5.0 (g /dL) Final AST (Aspartate aminotransferase) 04/22/2024 10:08:41 23 10-50 (U/L) Fin al Alk Phos 04/22/2024 10:08:41 73 35-130 (U/ L) Final Bilirubin, Total 04/22/2024 10:08:41 0.5 <=1 .2 (mg/dL) Final Calcium 04/22/2024 10:08:41 9.3 8.4-10.2 ( mg/dL) Final Protein 04/22/2024 10:08:41 6.4 6.0-8.3 (g /dL) Final ALT (Alanine aminotransferase) 04/22/2024 10:08:41 <5 Below low normal 10-50 (U/L) Final Performing Location [facility] [address] [place] [address]
--- OUTSIDE RECORDS SUMMARY | 2024-08-26 09:42 | External Medical Summary | Summary of Care ---
Author Name Unknown Organization [facility] Address [address] [place] [address] Phone [phone] Care Team Providers Care Tuber Machine Operator Name Role Phone Vincent Slaughter MD Primary Care Provider + Reason for Visit * Reason Comments eRx-Medication Refill Encounter Details Date Type Department Care Team (Late st Contact Info) Description 04/09/2024 Refill General Internal Medicine [facility] 200 [facility] [place] [phone] Vincent Slaughter MD [address] [place] [address] Ascending aorta dilatation (HCC) Allergies Active Allergy Reactions Criticality Noted Date Comments Heparin High 01/01/2023 ?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 30 mL 12 11/22/2022 Active [...] empty stomach.. 30 Tablet 5 11/21/2023 Active methylPREDNISolon e 4 MG Oral Tablet [...] before bedtime 180 Tablet 1 04/10/2024 Active Metoprolol Succinate ER 25 MG Oral Tablet Extended Release 24 Hour (toPROL XL)Indications:As cending aorta dilatation (HCC) TAKE 1 TABLET BY MOUTH TWICE DAILY every morning and before bedtime 180 Tablet 1 07/29/2023 04/10/20 24 Discontinued Hospital, Clinic, or Other Facility Administered Medication Ordered Dose Route Frequency Start Date End Date Status Albuterol Sulfate (Proventil) (2.5 MG/3ML) 0.083% inhalation solution 2.5 mgIndications:ILD (interstitial lung disease) (HCC),Hypersensitivity pneumonitis (HCC),COPD, group B, by GOLD 2017 classification (HCC),Dyspnea on exertion,Chronic cough 2.5 mg NEBULIZER ONCE PRN 01/07/2024 01/06/2025 Ac tive documented as of this encounter (statuses as of 04/10/2024) Active Problems Problem Noted Date Diagnosed Date [...] hemisphere infarct. Mri 01/14/2007 Mri done at [facility] Statin intolerance 07/27/2007 Overview: Hepatitis with Zocor Other sleep apnea 06/01/2001 documented as of this encounter (statuses as of 04/10/2024) Resolved Problems Problem Noted Date Diagnosed Date [...] hemisphere infarct. Mri 01/14/2007 Mri done at [facility] Cerebrovascular event, ill-d efined, within last [...] as of this encounter (statuses as of 04/10/2024) Immunizations Name Administration Dates Next Due Pneumococcal [...] encounter Miscellaneous Notes * Telephone Encounter - Yasmine Acosta RPh - 04/10/2024 12:57 PM EDTSigned Prescriptions: Disp Refills Metoprolol Succinate ER 25 MG Oral Tablet *180 Ta*1 Sig: TAKE 1TABLET BY MOUTH TWICE DAILY every morning and before bedtimeAuthorizing Provider: VINCENT SLAUGHTER User: YASMINE ACOSTA documented in this encounter Plan of Treatment Upcoming Encounters Date Type Department Care Team (Late st Contact Info) Description 04/23/2024 9:00 AM EDT Pharmacy Pharmacy Hematology Oncology [facility] [address] [place] [address] [facility] Hem[facility]Onc [address] [place] [address] 04/26/2024 8:00 AM EDT Office Visit [facility] Surgery [facility] [address] [place] [address] Candace Aguilar MD [address] [place] [address] 04/26/2024 3:20 PM EDT Office Visit Pulmonary Medicine, [facility] [address] [place] [address] Tomi Hayes, DO [address] [place] [address] 05/05/2024 12:40 PM EDT Office Visit General Internal Medicine [facility] [address] [facility] [place] [address] Nazario Whaley, DO [address] [place] [address] 05/06/2024 3:00 PM EDT Office Visit Cardiology, [facility] [address] [place] [address] Cuauhtemoc Jo, DO 132 [place] [address] 05/28/2024 1:00 PM EDT Office Visit Dermatology [facility] [address] [place], [place] [address] Vincent Buck MD [address] [facility] [place] [address] 06/02/2024 9:30 AM EDT Office Visit Hematology/Oncology [facility] [address] [place], [place] [phone] Lucien Jamil MD [address] [place], [place] [address] 09/27/2024 3:30 PM EST Office Visit Cardiology, [facility] [address] [place] [address] Cuauhtemoc Jo, DO [address] [place] [address] 12/03/2024 11:15 AM EDT Office Visit Otolaryngology [facility] [address] [place] [address] Susanne Thrasher MD [address] [place] [address] Health Maintenance Due Date Last Done Comments COVID-19 Vaccine (#1) 02/07/1945 Zoster Vaccines (1 of 2) 02[birth year]07/1959 Adult Wellness Visit 02/07/2006 CKD PHOS USE SMARTSET 65723 11/29/[address] 02/2023, 11/07/2022, 10/16/2021, Additional history exists Influenza Vaccine (FLU shot) (#1) 2024 Albumin/Creatinine Ratio 05/22/2024 023, 05/09/2022, 09/17/1999 Depression Screening 05/22/2024 05/22/2023 GFR 10/04/2024 04/06/2024, 03/05, 03/11/2024, Additional history exists DTap/Tdap Vaccines (4 - Td or Tdap) 12/01/2024 12/01/2014, 12/01/2014, 12/01/2014 O2 ASSESSMENT COMPLETED IN PAST YEAR FOR COPD 03/01/2025 03/01/2024 CKD HGB USE SMARTSET 15990 04/06/202504/06, 04/06/2024, 03/26/2024, Additional history exists Pneumococcal [...] this encounter Medical Devices Implanted Type Area Supervisor Assembly Device Identifier Shelf Expiration Date Model / Serial / Lot Valve Korey 3 Ultra 26mm - [id number] Implanted:Qty: 1 on 12/24/2022 by Jesse Tanner MD at [facility] [place] [employer] [id number] 07/03/2023 [id number] / / Lead Pace Selectsecure 3830-69 - [id number] Implanted:Qty: 1 on 12/26/2022 by Keily Kelley IV, MD at [facility] [employer] : [employer] [id number] 11/19/2024 [id number] 9 / [id number] / [id number] Lead Novus Bipolar 52cm - [id number] Implanted:Qty: 1 on 12/26/2022 by Keily Kelley IV, MD at [facility] [employer] : CRM [id number] 10/10/2024 5076- 52 / [id number] / [id number] Pacemaker [place] Xt Dr Kwesi [employer] - [id number] Implanted:Qty: 1 on 12/26/2022 by Keily Kelley IV, MD at [facility] [place] [employer] [id number] 05/17/2024 [id number] / [id number] / [id number] documented as of this encounter Visit Diagnoses Diagnosis Ascending aorta dilatation (HCC) Thoracic aortic ectasia documented in this encounter Advance Directives * Full Code (Latest Code Status on File) Date Activated Date Inactivated Comments 12/24/2022 11:13 AM 12/27/2022 10:05 PM This order reflects the patients wishes and were consensually agreed upon. Question Answer Comments Discussion of Advance Directives occurred with: Patient Care Teams Tuber Machine Operator Relationship Specialty Start Date End Date Vincent Slaughter MD [address] [facility] [place] [address] PCP - General Internal Medicine 05/22/21 documented as of this encounter
--- OUTSIDE RECORDS SUMMARY | 2024-08-26 09:42 | External Medical Summary ---
Author Name Unknown Address Unknown Organization K09[facility] [place] [address] Laboratory Report Ordering Provider Test Date Status KAMI CHAPAMN 04/22/2024 10:08:41 Final 2 times a week for 3-6 weeks , then every 1-2 weeks. Observation Date Value Abnormality Reference (Units ) Status WBC, Total 04/22/2024 10:08:41 22.54 Above high normal 4 .00-10.80 (K/uL) Final RBC 04/22/2024 10:08:41 3.70 4.50-5.25 (M/uL) Final Hemoglobin 04/22/2024 10:08:41 11.9 Below low normal 14 .0-16.8 (g/dL) Final HCT 04/22/2024 10:08:41 36.8 Below low normal 40. 0-48.4 (%) Final MCV 04/22/2024 10:08:41 99.5 82.0-99.5 (fL) Final MCH 04/22/2024 10:08:41 32.2 27.0-34.0 (pg) Final MCHC 04/22/2024 10:08:41 32.3 32.0-36.0 (g/dL) Final RDW 04/22/2024 10:08:41 14.4 11.5-15.5 (%) Final Platelets 04/22/2024 10:08:41 98 Below low normal 140 -400 (K/uL) Final MPV 04/22/2024 10:08:41 9.2 6.6-11.1 ( fL) Final Performing Location [facility] [place] [address]
--- OUTSIDE RECORDS SUMMARY | 2024-08-26 09:42 | External Medical Summary | Summary of Care ---
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 Constant cough. Pain in chest all the time. Has pacemaker. * Evaluate & Treat - Unlimited Visits (Within 10 days (routine)) - Authorized Specialty Diagnoses / Procedures Referred By Ousmane t Referred To Contact Pulmonary Diseases / Pulmonary Diagnoses Bronchiectasis without complication (HCC) Chronic bronchitis, unspecified chronic bronchitis type (HCC) COPD (chronic obstructive pulmonary disease) with chronic bronchitis (HCC) ILD (interstitial lung disease) (HCC) Nazario Whaley DO [address] [place] [id number] Referral ID Status Reason Start Date Expiration Date Visits Requested Visits Authorized [id number] Authorized Specialty Services Required 03/01/2024 [id number] Encounter Details Date Type Department Care Team (Late st Contact Info) Description 04/26/2024 10:20 AM EDT Office Visit Pulmonary Medicine, [facility] [address] [place] [address] Tomi Hayes DO [address] [place] [address] Dyspnea on exertion*; ILD (interstitial lung disease) (HCC); PHT (pulmonary hypertension) (HCC); History of 2019 novel coronavirus disease (COVID-19); Occupational exposure in workplace Allergies Active Allergy Reactions Criticality Noted Date Comments Heparin High 01/01/2023 ?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 30 mL 12 11/22/2022 Active [...] as of this encounter (statuses as of 04/26/2024) Active Problems Problem Noted Date Diagnosed Date [...] infarct. Mri 01/14/2007 Mri done at [facility] Statin intolerance 07/27/2007 Overview: Hepatitis with Zocor Other sleep apnea 06/01/2001 documented as of this encounter (statuses as of 04/26/2024) Resolved Problems Problem Noted Date Diagnosed Date [...] infarct. Mri 01/14/2007 Mri done at [facility] Cerebrovascular event, ill-d efined, within last 8 [...] as of this encounter (statuses as of 04/26/2024) Immunizations Name Administration Dates Next Due Pneumococcal [...] Sign Reading Time Taken Comments Blood Pressure 130/98 04/26/2024 9:54 AM EDT Pulse 58 04/26/2024 9:54 AM EDT Temperature 35.5 C (95.9 F) 04/26/2024 9:54 AM ED T Respiratory Rate 16 04/26/2024 9:54 AM EDT Oxygen Saturation 97% 04/26/2024 9:55 AM EDT ra-amb Inhaled Oxygen Concentration - - Weight 78.5 kg (173 lb) 04/26/2024 9:54 AM EDT Height 160 cm (5' 3") 04/26/2024 9:54 AM EDT Body Mass Index 30.65 04/26/2024 9:54 AM EDT documented in this encounter Functional [...] as of this encounter Progress Notes * Tomi Hayes DO - 04/26/2024 10:20 AM EDT PULMONARY MEDICINE: REFERRING PROVIDER: Vincent Slaughter MD [facility] APPRENTICE: Abhay Garcia MD - last seen 07/01/2022 REASON FOR FOLLOW UP: Bronchiectasis without complication (HCC) [J47.9] - Primary Chronic bronchitis, unspecified chronic bronchitis type (HCC) [J42] COPD (chronic obstructive pulmonary disease) with chronic bronchitis (HCC) [J44.89] ILD (interstitial lung disease) (HCC) [J84.9] BACKGROUND: 84 year old never smoker with past medical history significant for interstitial lung disease (felt to be related to COVID-19 infection), bronchiectasis, sleep apnea, complete heart block treated withpacemaker, peripheral vascular disease, cerebrovascular disease with history of stroke, osteoarthritis, chronic sinusitis, hyperparathyroidism and hypercalcemia, renal calculi, stage IIIA chronic kidney, hypertension, dyslipidemia, CLL, obesity (Body mass index is 30.65 kg/m.). HPI / ROS: He presented to the visit accompanied by his , who helped provide history. Feeling "Not as good as I used to be 60 years ago" He notes he was hospitalized for COVID "For over 2 weeks" in January 2022 He notes he contracted COVID again in 08/2023 but was treated as an outpatient He notes he has been told he has lung scarring" from having COVID. His feels he was breathing symptoms have gotten worse sinc having "Cardiac procedures" - Pacemaker (2022) No shortness of breath at rest or conversational dyspnea No orthopnea + dyspnea on exertion SANCHEZ after > 1 flight of stairs SANCHEZ "If I have to walk any distance" "All night long, all day long" cough productive of "White, thick" sputum No hemoptysis "Sometimes" per his wofe wheeze without chest tightness + chest pain and palpitations "There's something wrong right here" pointing at his mid chest. This is associated with certain armmovements No edema No syncope or presyncopal symptoms No fevers, chills, sweats Appetite & weight "Lost 54 pounds" Supplemental oxygen: "I have oxygen, but it don't do any good". Not using. He notes he spot checks his Pox at home and "Its always 95, 97" PAP: No + environmental allergies "One time at [facility], they did the testing. The twisting. They said I was allergic to everything" He notes he follows with ENT. He reports he saw ENT recently and was told he did not have a sinus infection and did not require antibiotics. No GERD symptoms He notes he has trialed Prednisone numerous times in the past but does not feel it is helpful Inhaled medications: Michaellegy 200/62.5/20 daily - Not using. "I tried that and it don't help" Prn ProAir HFA. Using Every day" - Does not feel it helps Has a spacer/chamber (Using) Past Medical History: Diagnosis Date Ascending aorta dilatation ([facility]) 06/08/2020 Branch retinal vein occlusion of right eye with macular edema Calculus of kidney 06/01/2001 CEREBROVASCULAR DZ, POST-STROKE 03/02/2009 Modified per CVA protocol #8. 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 Mri 01/14/2007 Mri done at [facility] Chronic kidney disease, stage 3a ([facility]) 01/16/2021 Per CKD protocol Chronic lymphocytic leukemia ([facility]) 02/25/2005 Complete heart block ([facility]) 01/06/2023 Dyslipidemia, goal to be determined History of 2019 novel coronavirus disease (COVID-19) 05/07/2022 HTN, goal to be determined Hypertension, chronic,unspecified HYPERCALCEMIA Hyperparathyroidism Other chronic sinusitis 03/27/2005 Pneumonia Primary osteoarthritis involving multiple joints SLEEP APNEA NOS 06/01/2001 Review of patient's allergies indicates: Allergen Reactions Heparin ?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 30 mL 12 Azithromycin 500 [...] on an empty stomach.. 30 Tablet 5 methylPREDNISolone 4 MG Oral Tablet Therapy Pack (Medrol Dosepack) follow package directions 21 Tablet 0 Trelegy Ellipta 200-62.5-25 MCG/ACT Aerosol Powder Breath Activated (Ujflvxhoywn-Dlzjlttryfsq-Rkgjldheqa) Inhale 1 Puff by mouth in the morning. 60 Blister Dosing Unit 3 Metoprolol Succinate ER 25 MG Oral Tablet Extended Release 24 Hour (toPROL XL) TAKE 1 TABLET BY MOUTH TWICE DAILY every morning and before bedtime 180 Tablet 1 Current Facility-Administered Medications Medication Dose Route Frequency Provider Last Rate Last Admin Albuterol Sulfate (Proventil) (2.5 MG/3ML) 0.083% inhalation solution 2.5 mg 2.5 mg Nebulizer Once PRN 2.5 mg at 02/23/24 1014 SOCIAL HISTORY Pulmonary History: Never smoker No vaping No marijuana use Prior secondhand smoke exposure: Father was a smoker Interstitial lung disease (felt to be related to COVID-19 infection) Bronchiectasis Sleep apnea (not treated) Occupational/Environmental: Retired 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 Exposed to some asbestos from brake linings Pets: Previously had cats. No birds Mold: No Humidifier: No PHYSICAL EXAM: BP 130/98 | Pulse 58 | Temp 35.5 C (95.9 F) (Tympanic) | Resp 16 | Ht 1.6 m (5' 3") | Wt 78.5 kg (173 lb) | SpO2 97% Comment: ra-amb | BMI 30.65 kg/m | BSA 1.87 m General: Chronically ill. No acute distress. Appears comfortable on room air. Speaks in full sentences, without conversational dyspnea. No cough during interview Eyes: EOMI, Conjunctiva are pink and non-injected, sclera clear Ears: External ears normal in shape and color Nose: No mucosal erythema, no mucosal edema, no purulent discharge Oropharynx: No exudate, no erythema, lips, buccal mucosa, and tongue normal, MMM. Heart: Slightly distant but regular with systolic murmur Lungs: Scattered crackles throughout both lung enriquez. No rhonchi or wheeze. Relatively preserved air movement bilaterally. Pulses: The exposed bilateral lower extremities appear warm and well perfused Abdomen: Soft, non-tender and normal bowel sounds Extremities: Trace bilateral ankle edema, no cyanosis Neurologic: Alert & oriented x 3 with fluent speech, no focal motor/sensory deficits Skin: No rashes or significant lesions on the exposed skin Clinician interpretation of Pulmonary Function Tests: 02/23/2024: [...] centimete rs/second. PA acceleration time 0.10 seconds Assessment: Dyspnea on exertion: Stable Etiology possibly multifactorial with contributing factors likely related to comorbid conditions asoutlined below. Pulmonary hypertension suspected per echocardiogram 03/18/2024. 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 He notes he has been told he developed lung scarring" after having COVID. His notes that his breathing symptoms worsened prior to cardiac procedures" in 2022 and never recovered even after having his cardiac issues treated. One of his biggest complaint is chronic cough. He notes daily thick/white sputum. Recommendations and Plans: Pulmonary vasodilators: None prescribed As above, the differential diagnosis for possible pulmonary hypertension (no right heart catheterization data on file to confirm/refute PH diagnosis) consist mainly of comorbid conditions. Treatment of pulmonary hypertension caused by these conditions is generally related to optimization of the underlying disorder. Pulmonary function testing: Ordered 6 minute walk for the day of next visit. If hypoxemia noted with exertion, will also need oxygen titration testing. 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 Trelegy 200/62.5/20 daily - he notes he was not using this as he felt it was ineffective. Prn ProAir HFA. Has a spacer/chamber He was asked to use this 4 times daily, prior to flutter therapy (as below) He notes he was treated with a nebulizer while hospitalized, but did not feel it was helpful. Wediscussed a prescription for home nebulizer, though he declined this for now. Supplemental oxygen/PAP: Supplemental O2: None prescribed. No hypoxemia noted Recommendations may change once walk testing results are available, as above PAP: None prescribed Pulmonary hygiene: 04/26/2024: He was issued a flutter device and taught proper use of the device while in the office.He was asked to uses 4 times per day, after using his albuterol inhaler, 5 minutes per occurrence. Regular aerobic exercise is recommended. Pulmonary rehabilitation: None ordered May consider pulmonary rehabilitation referral once more medically optimized Labs: None ordered We briefly discussed lab workup/screening for causes of bronchiectasis and interstitial lung disease, though he declined this. Specialty follow-up: PCP/referring provider may consider Sleep Medicine referral for evaluation/management of sleep disordered breathing Cardiology for heart failure management, management of heart block, peripheral vascular disease, hypertension, hyperlipidemia, as directed Hematology for CLL management, as directed Primary care provider/referring provider should consider/facilitate the following: Keep respiratory vaccinations up-to-date Keep all age-appropriate cancer screening up-to-date Patient should avoid known respiratory irritants. The patient should avoid secondhand smoke exposure and use proper personal protective equipment anytime exposed to smoke, fumes, dust, chemicals, particulate matter, etc. No pulmonary contraindication to regular aerobic exercise, which is encouraged. All questions from the patient and his were answered. Will attempt to see back in the clinic in relatively short order to assess impact of pulmonary hygiene on his symptoms. Follow-up: Return in about 1 month (around 05/26/2024). | Check-out note: Follow up next available Appt with Freddy in [facility]. 6-MWT day of next visit. Tomi Hayes DO [facility] Pulmonary Medicine[address] [address] This note was completed using voice recognition software. Please excuse any word substitutions/deletions or similar errors documented in this encounter Nursing Notes * Kellie Pemberton LPN - 04/26/2024 9:56 AM EDT Chief Complaint Patient presents with NEW PATIENT New return Pulm. COPD. SOB. Constant cough. Pain in chest all the time. Has pacemaker. Interm History/Respiratory Symptoms Cough: yes-white/thick light yellow. frothy phlegm-some pink Hemoptysis: pink Sinus Symptoms: drainage/congestion. Hospitalizations: no ED Trips: no Triggers: mendez Nocturnal: sleeps with head elevated. CPAP/BiPAP/O2: o2 doesn't help . Not using it. DME Supplier: no Flu Vaccine: none Pneumovax: 2017 Prevnar: 2016 COVID 19: none . MMRC Dyspnea Scale = 3 (I stop for breath after walking about 100 yards or after a few minutes on ground level) documented in this encounter Plan of Treatment Upcoming Encounters Date Type Department Care Team (Late st Contact Info) Description 05/03/2024 7:30 AM EDT Office Visit [facility] [place] [address] [place] [address] [facility] [address] 05/05/2024 12:40 PM EDT Office Visit General Internal Medicine [facility] [place] [address] [place] [address] Nazario Whaley DO [address] [place] [address] 05/06/2024 3:00 PM EDT Office Visit Cardiology, [facility] [address] [facility] [place] [address] Cuauhtemoc Jo DO [address] [facility] [place] [address] 05/07/2024 9:00 AM EDT Pharmacy Pharmacy Hematology Oncology [facility] [address] [place] [address] [facility] Hem/Onc [address] [place] [address] 05/26/2024 10:00 AM EDT Office Visit Pulmonary Medicine, [facility] [address] [facility] [place] [address] Phillip Hernandez MD [address] [place] [address] 05/28/2024 1:00 PM EDT Office Visit Dermatology [facility] [place] [address] [place] [address] Vincent Buck MD [address] [place] [address] 06/02/2024 9:30 AM EDT Office Visit Hematology/Oncology [facility] [place] [address] [place] [id number] Lucien Jamil MD [address] [place] [address] 07/19/2024 12:00 PM EST Office Visit Pulmonary Medicine, [facility] [address] [facility] [place] [address] Tomi Hayes DO [address] [place] [address] 09/27/2024 3:30 PM EST Office Visit Cardiology, [facility] [address] [facility] [place] [address] Cuauhtemoc Jo DO 132 [facility] [place] [address] 12/03/2024 11:15 AM EDT Office Visit Otolaryngology [facility] [address] [facility] [place] [address] Susanne Thrasher MD [address] [facility] [place] [address] Scheduled Orders Name Type Priority Associated Diagnoses Orde r Schedule PULMONARY STRESS TESTING Procedures Routine Dyspnea on exertion Expected: 04/26/2024, Expires: 05/26/2025 Health Maintenance Due Date Last Done Comments COVID-19 Vaccine (#1) 02/07/1945 Zoster Vaccines (1 of 2) 02/07/1959 Adult Wellness Visit 02/07/2006 CKD PHOS USE SMARTSET [id number] 11/29/202311/03, 11/07/2022, 10/16/2021, Additional history exists Influenza Vaccine (FLU shot) (#1) 2024 Albumin/Creatinine Ratio 05/22/2024 023, 05/09/2022, 09/17/1999 Depression Screening 05/22/2024 05/22/2023 GFR 10/20/2024 04/22/2024, 09/0 10/2023, 03/26/2024, Additional history exists DTap/Tdap Vaccines (4 - Td or Tdap) 12/01/2024 12/01/2014, 12/01/2014, 12/01/2014 CKD HGB USE SMARTSET [id number] 04/22/202504/22, 04/22/2024, 04/06/2024, Additional history exists O2 ASSESSMENT COMPLETED IN PAST YEAR FOR COPD 04/26/2025 04/26/2024 Pneumococcal Vaccine: 65+ Years Completed 07/01/2017, 06/26/2016, [...] this encounter Medical Devices Implanted Type Area Flux Plant Operator Device Identifier Shelf Expiration Date Model / Serial / Lot Valve Korey 3 Ultra 26mm - [id number] Implanted:Qty: 1 on 12/24/2022 by eJsse Tanner MD at [facility] [employer] [id number] 07/03/2023 [id number] / / Lead Pace Selectsecure 3830-69 - [id number] Implanted:Qty: 1 on 12/26/2022 by Keily Kelley IV, MD at [facility] [employer] : CRM [id number] 11/19/2024 [id number] / [id number] / [id number] Lead Novus Bipolar 52cm - [id number] Implanted:Qty: 1 on 12/26/2022 by Keily Kelley IV, MD at [facility] [employer] : CRM [id number] 10/10/2024 [id number] / [id number] / [id number] Pacemaker [place] Xt Dr Kwesi [facility] - [id number] Implanted:Qty: 1 on 12/26/2022 by Keily Kelley IV, MD at [facility] [employer] [id number] 05/17/2024 [id number] / [id number] / [id number] documented as of this encounter Visit Diagnoses Diagnosis Dyspnea on exertion- Primary Other dyspnea and respiratory abnormality ILD (interstitial lung disease) (HCC) Postinflammatory pulmonary fibrosis PHT (pulmonary hypertension) (HCC) Other chronic pulmonary heart diseases History of 2019 novel coronavirus disease (COVID-19) Occupational exposure in workplace Adverse effects of work environment documented in this encounter Advance Directives * Full Code (Latest Code Status on File) Date Activated Date Inactivated Comments 12/24/2022 11:13 AM 12/27/2022 10:05 PM This order reflects the patients wishes and were consensually agreed upon. Question Answer Comments Discussion of Advance Directives occurred with: Patient Care Teams Nipple Machine Operator Relationship Specialty Start Date End Date Vincent Slaughter MD [address] [facility] [place] [address] PCP - General Internal Medicine 05/22/21 documented as of this encounter
--- OUTSIDE RECORDS SUMMARY | 2024-08-26 09:42 | External Medical Summary | Summary of Care ---
Author Name Unknown Organization [facility] Address [address] [place] [address] Phone [phone] Care Team Providers Care Food Safety Officer Name Role Phone Vincent Slaughter MD Primary Care Provider + Reason for Visit * Reason Comments Follow Up Follow up, S/P TAVR 12/2022 Encounter Details Date Type Department Care Team (Late st Contact Info) Description 05/06/2024 3:00 PM EDT Office Visit Cardiology, [facility] [address] [place] [address] Cuauhtemoc Jo DO [address] [place] [address] Coronary artery disease involving [place] coronary artery of [place] heart without angina pectoris*; S/P TAVR (transcatheter aortic valve replacement); CHB (complete heart block) (HCC); S/P placement of cardiac pacemaker; HTN, goal below 140/90; Ascending aorta dilatation (HCC) Allergies Active Allergy Reactions Criticality Noted Date Comments Heparin High 01/01/2023 ?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 30 mL 12 11/22/2022 Active [...] follow package directions 21 Tablet 01/06/2024 Active Additional Information Patient not taking.Reported on 05/06/2024 Trelegy Ellipta 200-62.5-25 MCG/ACT Aerosol Powder Breath Activated (Fluticasone-Umecl idinium-Vilanterol )Indications:Bronc hiectasis without complication (HCC),Chronic bronchitis, unspecified chronic bronchitis type (HCC),COPD (chronic obstructive pulmonary disease) with chronic bronchitis (HCC),ILD (interstitial lung disease) ([facility]) Inhale 1 Puff by mouth in the [...] this for 7 days. 14 Capsule 05/03/2024 Active Hospital, Clinic, or Other Facility Administered Medication Ordered Dose Route Frequency Start Date End Date Status Albuterol Sulfate (Proventil) (2.5 MG/3ML) 0.083% inhalation solution 2.5 mgIndications:ILD (interstitial lung disease) (HCC),Hypersensitivity pneumonitis (HCC),COPD, group B, by GOLD 2017 classification (HCC),Dyspnea on exertion,Chronic cough 2.5 mg NEBULIZER ONCE PRN 01/07/2024 01/06/2025 Ac tive documented as of this encounter (statuses as of 05/06/2024) Active Problems Problem Noted Date Diagnosed Date [...] hemisphere infarct. Mri 01/14/2007 Mri done at [facility] Statin intolerance 07/27/2007 Overview: Hepatitis with Zocor Other sleep apnea 06/01/2001 documented as of this encounter (statuses as of 05/06/2024) Resolved Problems Problem Noted Date Diagnosed Date [...] hemisphere infarct. Mri 01/14/2007 Mri done at [facility] Cerebrovascular event, ill-d efined, within last 8 weeks 02/23/2007 11/17/2008 Overview: Modified per CVA protocol #8 Chronic rhinitis 09/16/2005 12/31/2017 Deviated nasal septum 03/27/20052017 Acquired deformity of nose 03/27/200508/31/2016 NASAL & SINUS DIS NEC 03/27/20052016 Other chronic sinusitis 03/27/2005 0808/2018 CHRONIC LYMPHOID LEUKEMIA WI THOUT MENTION OF [...] as of this encounter (statuses as of 05/06/2024) Immunizations Name Administration Dates Next Due Pneumococcal [...] Sign Reading Time Taken Comments Blood Pressure 130/74 05/06/2024 3:02 PM EDT Pulse 60 05/06/2024 3:02 PM EDT Temperature - - Respiratory Rate 24 05/06/2024 3:02 PM EDT Oxygen Saturation - - Inhaled Oxygen Concentration - - Weight 77.2 kg (170 lb 1.6 oz) 05/06/2024 3:02 P M EDT Height - - Body Mass Index 30.13 04/26/2024 9:54 AM EDT documented in this [...] as of this encounter Progress Notes * Cuauhtemoc Jo, - 05/06/2024 3:05 PM EDT 05/06/2024 Cardiology Follow Up CHIEF COMPLAINT: Follow up chronic coronary heart disease, TAVR, ascending aortic enlargement SUBJECTIVE: Luis M Tirado is a 84 year old year old male who returns routine Cardiology follow-up having most recently been seen by the comprehensive valve Clinic in Dec, 2023. Patient was accompanied by his spouse, Diana. Patient had undergone recent Mohs surgery to his right ear. Patient notes generalized easy fatigability and shortness of breath. He had been seen by Pulmonary Medicine and been treated with a course prednisone over the summer. At the time of the pulmonary evaluation, patient's dyspnea on exertion was felt to be relatively stable and multifactorial with postCOVID pneumonitis, underlying cardiac disease, pulmonary hypertension. An echocardiogram was performed in March, with results as noted below. Cardiac history Severe aortic stenosis, status post TAVR (26mm Sapein), 12/24/2022 TAVR course complicated by CHB, s/p dual chamber pacemaker placement with LBB lead (Medtronic [id number]), 12/26/[address] 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 30 mL 12 Azithromycin 500 [...] Ellipta 200-62.5-25 MCG/ACT Aerosol Powder Breath Activated (Sanbiudtvlx-Rqmejvkkdwwl-Wbibrxayiu) Inhale 1 Puff by mouth in the [...] this for 7 days. 14 Capsule 0 methylPREDNISolone 4 MG Oral Tablet Therapy Pack (Medrol Dosepack) follow package directions (Patient not taking: Reported on 05/06/2024) 21 Tablet 0 Current Facility-Administered Medications Medication Dose Route Frequency Provider Last Rate Last Admin Albuterol Sulfate (Proventil) (2.5 MG/3ML) 0.083% inhalation solution 2.5 mg 2.5 mg Nebulizer Once PRN 2.5 mg at 0722/24 1014 OBJECTIVE/PHYSICAL EXAMINATION: BP 130/74 | Pulse 60 | Resp 24 | Wt 77.2 kg (170 lb 1.6 oz) | BMI 30.13 kg/m | BSA 1.85 m General: no acute distress and stated age Eyes: conjunctiva are pink and non-injected, sclera clear Neck: normal jugular venous pulse, no hepatojugular reflux Chest: normal shape and normal respiratory effort Lungs: clear to auscultation , no rales rhonchi or wheezing Cardiac Exam: - regular heart sounds, no murmurs, rubs, or gallops Abdomen: abdomen soft, non-tender, no abnormal masses and no hepatosplenomegaly Musculoskeletal: no gait disturbance, no weakness Extremities: no edema and no cyanosis Neuro: grossly normal exam Psych: appropriate affect and insight. Data: Most recent remote pacemaker interrogation 04/14/2024: Predominant rhythm AV sequential pacing Atrial pacing 81% the time, right ventricular pacing 88% the time Thresholds and lead impedance stable and within normal limits Generator longevity stable at 10.75 years A single 2 second ventricular run observed Summary of transthoracic echocardiogram performed 03/08/2024: Sinus rhythm with premature ventricular contractions observed during the echocardiogram study. The LV wall thickness is moderately increased (concentric). The septal motion is abnormal consistent with right ventricular pacemaker. The regional left ventricular wall motion is otherwise normal. The qualitative LV ejection fraction is 55-59% (normal). The left ventricular diastolic function is moderately abnormal (grade II). The patient is status post TAVR with Korey type prosthetic valve. The mean systolic gradient through the TAVR is 15 mmHg. The peak aortic valve velocity throught the TAVR is 2.8 m/sec. Trivial paravalvular aortic valve prosthesis regurgitation is present. The aortic valve prosthesis systolic gradients are normal for this type prosthesis. Mild tricuspid regurgitation is present. The pulmonary artery systolic pressure is estimated be 63 millimeters Hg (moderately elevated). Compared to the report of the previous study dated 03/03/2023, the prosthetic aortic valve gradientis relatively unchanged. Moderate pulmonary hypertension is now noted. Noncontrast CT chest 02/23/2024: 4.6 centimeter ascending aortic aneurysm Lipid Panel Results: Results for orders placed or performed in visit on 11/07/22 LIPID PANEL WITH DIRECT LDL IF TG IS HIGH Result Value Ref Range Triglycerides 81 <=174 mg/dL Cholesterol 182 <200 mg/dL HDL Cholesterol 38 (L) >39 mg/dL Non-HDL Cholesterol 144 <=159 mg/dL LDL Cholesterol 128 <=129 mg/dL ASSESSMENT / PLAN: 84 year old year old male Coronary artery disease involving [place] coronary artery of [place] heart without angina pectoris (Primary) S/P TAVR (transcatheter aortic valve replacement) CHB (complete heart block) (HCC) S/P placement of cardiac pacemaker HTN, goal below 140/90 Ascending aorta dilatation (HCC) pulmonary hypertension (multifactorial) Prescription medication management: Continue aspirin, losartan, metoprolol. Patient was not been on a statin medication with noted abnormal LFTs after simvastatin therapy. At present, I think it was most prudent to keep his medication regimen as simple as possible and will therefore forego statin therapy. Diastolic dysfunction is certainly a potential contributing factor to his pulmonary hypertension but he does not examined as if he was volume overloaded. We will hold off on diuretic therapy. Ascending aorta diameter of 4.6 centimeter on most recent noncontrast CT of the chest which is relatively stable compared to previous. He was not felt to be a candidate for surgical intervention if the aorta was to increase in size. --patient is seen longitudinal follow-up of the above complex chronic concerns with the assessment and plan as outlined. DISPOSITION: Follow Up: Return in about 6 months (around 11/04/2024) for Clinic Visit. | For: Clinic Visit Cuauhtemoc Jo DO Cardiology, [address] [address] This chart was completed in part utilizing Double[employer] Speech Voice Recognition Software. Grammatical errors, random word insertions, prounoun errors, and incomplete sentences are an occasional consequence of this system due to software limitations, ambient noise, and hardware issues. Any formal questions or concerns about the content, text, or information contained within the body of this dictation should be directly addressed to the provider for clarification. documented in this encounter Nursing Notes * Lyndsey Munroe CMA - 05/06/2024 2:57 PM EDT Examination Room: 10 Name: Luis M Tirado Date of : (1940). Reason for Visit: follow-up Interim Hospitalization(s): denies Problems/Concerns: Lost 54lbs, fatigue, struggles to complete daily activities Chest Pain/SOB: Still SOB, not sure if it is [facility] Discussed: Yes [facility] is a way you can talk to your provider online through e-mail. Would you like to sign up? I can activate it for you? ALREADY ACTIVE Patient was instructed to not get up on the exam table until directed and assisted by their provider; patient is to remain seated in the chair/ wheelchair/ exam table for fall prevention and safety reasons. Patient is aware to have assistance to step down off exam table with personnel. Patient voiced full comprehension of instructions. documented in this encounter Plan of Treatment Upcoming Encounters Date Type Department Care Team (Late st Contact Info) Description 05/07/2024 9:00 AM EDT Pharmacy Pharmacy Hematology Oncology [facility] [address] [place] [address] [facility], [facility] Hem/Onc [address] [place] [address] 05/07/2024 12:00 PM EDT Office Visit General Internal Medicine [facility] [address] [facility] [place] [address] Nazario Whaley DO [address] [facility] [place] [address] 05/10/2024 1:00 PM EDT Office Visit MOHS Surgery [facility] [address] [place] [address] Candace Aguilar MD [address] [facility] [place] [address] 05/26/2024 10:00 AM EDT Office Visit Pulmonary Medicine, [facility] [address] [facility] [place] [address] Phillip Hernandez MD [address] [facility] [place] [address] 05/28/2024 1:00 PM EDT Office Visit Dermatology [facility] [address] [place] [address] Vincent Buck MD [address] [place] [address] 06/02/2024 9:30 AM EDT Office Visit Hematology/Oncology [facility] [address] [place], [place] [address] Lucien Jamil MD [address] [place] [address] 07/19/2024 12:00 PM EST Office Visit Pulmonary Medicine, [facility] [address] [facility] [place], [place] [address] Tomi Hayes DO [address] [place] [address] 09/27/2024 3:30 PM EST Office Visit Cardiology, [facility] [address] [place] [address] Cuauhtemoc Jo, DO [address] [place] [address] 11/22/2024 11:00 AM EDT Office Visit Cardiology, [facility] [address] [facility] [place] [address] Cuauhtemoc Jo, DO [address] [place] [address] 12/03/2024 11:15 AM EDT Office Visit Otolaryngology [facility] [address] [facility] [place] [address] Susanne Thrasher MD [address] [place] [address] Health Maintenance Due Date Last Done Comments COVID-19 Vaccine (#1) 02/07/1945 Zoster Vaccines (1 of 2) 02/07/1959 Adult Wellness Visit 02/07/2006 CKD PHOS USE SMARTSET 48029 11/29/2023 04/02/2023, 11/07/2022, 10/16/2021, Additional history exists Influenza Vaccine (FLU shot) (#1) 2024 Albumin/Creatinine Ratio 05/22/2024 023, 05/09/2022, 09/17/1999 Depression Screening 05/22/2024 05/22/2023 GFR 10/20/2024 04/22/2024, 09/0 10/2023, 03/26/2024, Additional history exists DTap/Tdap Vaccines (4 - Td or Tdap) 12/01/2024 12/01/2014, 12/01/2014, 12/01/2014 CKD HGB USE SMARTSET 28230 04/22/202504/22, 04/22/2024, 04/06/2024, Additional history exists O2 [...] this encounter Medical Devices Implanted Type Area Stave Hewer Device Identifier Shelf Expiration Date Model / Serial / Lot Valve Korey 3 Ultra 26mm - [id number] Implanted:Qty: 1 on 12/24/2022 by Jesse Tanner MD at [facility] [employer] [id number] 07/03/2023 [id number] / / Lead Pace Selectsecure 3830-69 - [id number] Implanted:Qty: 1 on 12/26/2022 by Keily Kelley IV, MD at [facility] [place] [employer] : CRM [id number] 11/19/2024 [id number] / [id number] / [id number] Lead Novus Bipolar 52cm - [id number] Implanted:Qty: 1 on 12/26/2022 by Keily Kelley IV, MD at [facility] [employer] : CRM [id number] 10/10/2024 5076- 52 / [id number] / [id number] Pacemaker Parul Xt [facility] - [id number] Implanted:Qty: 1 on 12/26/2022 by Keily Kelley IV, MD at [facility] [employer] [id number] 05/17/2024 [id number] / [id number] / [id number] documented as of this encounter Visit Diagnoses Diagnosis Coronary artery disease involving [place] coronary artery of [place] heart without angina pectoris- Primary S/P TAVR (transcatheter aortic valve replacement) Heart valve replaced by other means CHB (complete heart block) (HCC) Atrioventricular block, complete S/P placement of cardiac pacemaker Cardiac pacemaker in situ HTN, goal below 140/90 Unspecified essential hypertension Ascending aorta dilatation (HCC) Thoracic aortic ectasia documented in this encounter Advance Directives * Full Code (Latest Code Status on File) Date Activated Date Inactivated Comments 12/24/2022 11:13 AM 12/27/2022 10:05 PM This order reflects the patients wishes and were consensually agreed upon. Question Answer Comments Discussion of Advance Directives occurred with: Patient Care Teams Food Safety Officer Relationship Specialty Start Date End Date Vincent Slaughter MD [address] [facility] [place] [address] PCP - General Internal Medicine 05/22/21 documented as of this encounter"
--- OUTSIDE RECORDS SUMMARY | 2024-08-26 09:42 | External Medical Summary | Summary of Care ---
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 30 mL 12 11/22/2022 Active [...] Activated (Fluticasone-Umecli dinium-Vilanterol)I ndications:Bronchie ctasis without complication ([facility]),Chronic bronchitis, unspecified chronic bronchitis type ([facility]),COPD (chronic obstructive pulmonary disease) with chronic bronchitis (HCC),ILD (interstitial lung disease) ([facility]) Inhale 1 Puff by mouth in the morning. 60 Blister Dosing Unit 3 03/01/2024 Active Metoprolol Succinate ER 25 MG Oral Tablet Extended Release 24 Hour (toPROL XL)Indications:Asce nding aorta dilatation ([facility]) TAKE 1 TABLET BY MOUTH TWICE DAILY every morning and before bedtime 180 Tablet 1 04/10/2024 Active Hospital, Clinic, or Other Facility Administered Medication Ordered Dose Route Frequency Start Date End Date Status Albuterol Sulfate (Proventil) (2.5 MG/3ML) 0.083% inhalation solution 2.5 mgIndications:ILD (interstitial lung disease) ([facility]),Hypersensitivity pneumonitis (HCC),COPD, group B, by GOLD 2017 classification ([facility]),Dyspnea on exertion,Chronic cough 2.5 mg NEBULIZER ONCE PRN 01/07/2024 01/06/2025 Ac tive documented as of this encounter (statuses as of 04/19/2024) Active Problems Problem Noted Date Diagnosed Date [...] infarct. Mri 01/14/2007 Mri done at [facility] Statin intolerance 07/27/2007 Overview: Hepatitis with Zocor Other sleep apnea 06/01/2001 documented as of this encounter (statuses as of 04/19/2024) Resolved Problems Problem Noted Date Diagnosed Date [...] infarct. Mri 01/14/2007 Mri done at [facility] Cerebrovascular event, ill-d efined, within [...] as of this encounter (statuses as of 04/19/2024) Immunizations Name Administration Dates Next Due Pneumococcal [...] Pharmacy Pharmacy Hematology Oncology [facility] [address] [place] [address] [facility] [place], [facility] Hem/Onc [address] [place] [address] 04/26/2024 8:00 AM EDT Office Visit MOHS Surgery [facility] [address] [place] [address] Candace Aguilar MD [address] [place] [address] 04/26/2024 3:20 PM EDT Office Visit Pulmonary Medicine, [facility] [address] [facility] [place] [address] Tomi Hayes DO [address] [place] [address] 05/05/2024 12:40 PM EDT Office Visit General Internal Medicine [facility] [address] [place] [address] Nazario Whaley, DO [address] [place] [address] 05/06/2024 3:00 PM EDT Office Visit Cardiology, [facility] [address] [facility] [place] [address] Cuauhtemoc Jo, DO [address] [facility] [place] [address] 05/28/2024 1:00 PM EDT Office Visit Dermatology [facility] [address] [facility] [place] [address] Vincent Buck MD [address] [facility] [place] [address] 06/02/2024 9:30 AM EDT Office Visit Hematology/Oncology [facility] [address] [facility] [place] [address] Lucien Jamil MD [address] [facility] [place] [address] 09/27/2024 3:30 PM EST Office Visit Cardiology, [facility] [address] [place] [address] Cuauhtemoc Jo DO [address] [place] [address] 12/03/2024 11:15 AM EDT Office Visit Otolaryngology [facility] [address] [place] [address] Susanne Thrasher MD [address] [place] [address] Health Maintenance Due Date Last Done Comments COVID-19 Vaccine (#1) 02/07/1945 Zoster Vaccines (1 of 2) 02/07/1959 Adult Wellness Visit 02/07/2006 CKD PHOS USE SMARTSET 65707 11/29/202311/03, 11/07/2022, 10/16/2021, Additional history exists Influenza Vaccine (FLU shot) (#1) 2024 Albumin/Creatinine Ratio 05/22/2024 023, 05/09/2022, 09/17/1999 Depression Screening 05/22/2024 05/22/2023 GFR 10/04/2024 04/06/2024, 03/05, 03/11/2024, Additional history exists DTap/Tdap Vaccines (4 - Td or Tdap) 12/01/2024 12/01/2014, 12/01/2014, 12/01/2014 O2 ASSESSMENT COMPLETED IN PAST YEAR FOR COPD 03/01/2025 03/01/2024 CKD HGB USE SMARTSET 11584 04/06/202504/06, 04/06/2024, 03/26/2024, Additional history exists Pneumococcal [...] this encounter Medical Devices Implanted Type Area Classifying Machine Operator Device Identifier Shelf Expiration Date Model / Serial / Lot Valve Korey 3 Ultra 26mm - [id number] Implanted:Qty: 1 on 12/24/2022 by Jesse Tanner MD at [facility] [place] [employer] [id number] 07/03/2023 [id number] / / Lead Pace Selectsecure 3830-69 - [id number] Implanted:Qty: 1 on 12/26/2022 by Keily Kelley IV, MD at [facility] [place] [employer] : [place] [id number] 11/19/2024 [id number] / [id number] / [id number] Lead Novus Bipolar 52cm - [id number] Implanted:Qty: 1 on 12/26/2022 by Keily Kelley IV, MD at [facility] [place] [employer] : [place] [id number] 10/10/2024 5076- 52 / [id number] / [id number] Pacemaker Parul Xt [facility] - [id number] Implanted:Qty: 1 on 12/26/2022 by Keily Kelley IV, MD at [facility] [place] [employer] [id number] 05/17/2024 [id number] / [id number] / [id number] documented as of this encounter Procedures Procedure Name Priority Date/Time Associated Diagnosis Comments CARDIOLOGY SCANNED RESULT 04/19/2024 documented in this encounter Results * CARDIOLOGY SCANNED RESULT (04/19/2024) 04/19/2024 Cuauhtemoc BUSTAMANTE documented in this encounter Advance Directives * Full Code (Latest Code Status on File) Date Activated Date Inactivated Comments 12/24/2022 11:13 AM 12/27/2022 10:05 PM This order reflects the patients wishes and were consensually agreed upon. Question Answer Comments Discussion of Advance Directives occurred with: Patient Care Teams Job Superintendent Relationship Specialty Start Date End Date Vincent Slaughter MD [address] [facility] [address] PCP - General Internal Medicine 05/22/21 documented as of this encounter
--- OUTSIDE RECORDS SUMMARY | 2024-08-26 09:43 | External Medical Summary ---
Author Name Unknown Address Unknown Organization K09[facility] [place] [address] Laboratory Report Ordering Provider Test Date Status KAMI CHAPMAN 03/26/2024 10:56:31 Final 2 times a week for 3-6 weeks , then every 1-2 weeks. Observation Date Value Abnormality Reference (Units ) Status WBC, Total 03/26/2024 10:56:31 23.69 Above high normal 4 .00-10.80 (K/uL) Final RBC 03/26/2024 10:56:31 3.48 4.50-5.25 (M/uL) Final Hemoglobin 03/26/2024 10:56:31 11.0 Below low normal 14 .0-16.8 (g/dL) Final HCT 03/26/2024 10:56:31 34.7 Below low normal 40. 0-48.4 (%) Final MCV 03/26/2024 10:56:31 99.7 82.0-99.5 (fL) Final MCH 03/26/2024 10:56:31 31.6 27.0-34.0 (pg) Final MCHC 03/26/2024 10:56:31 31.7 32.0-36.0 (g/dL) Final RDW 03/26/2024 10:56:31 14.7 11.5-15.5 (%) Final Platelets 03/26/2024 10:56:31 93 Below low normal 140 -400 (K/uL) Final MPV 03/26/2024 10:56:31 8.9 6.6-11.1 ( fL) Final Performing Location [facility] [place] [address]
--- OUTSIDE RECORDS SUMMARY | 2024-08-26 09:43 | External Medical Summary ---
Author Name Unknown Address Unknown Organization K09:[facility] [place] [address] Laboratory Report Ordering Provider Test Date Status KAMI CHAPMAN 04/06/2024 09:03:01 Final 2 times a week for 3-6 weeks , then every 1-2 weeks. Observation Date Value Abnormality Reference (Units ) Status SYNC LEUKOCYTES IN BLOOD BY AUTOMATED COUNT 04/06/2024 09:03:01 27.49 Above high normal 4.00-10.80 (K/uL) Final Neutrophils/100 leukocytes in Blood by Manual count 04/06/2024 09:03:01 18.0 Below low normal 40.0-75.0 (%) Final Lymphocytes/100 leukocytes in Blood by Manual count 04/06/2024 09:03:01 81.0 Above high normal 18.0-42.0 (%) Final Eosinophils/100 leukocytes in Blood by Manual count 04/06/2024 09:03:01 1.0 0.0-6.0 (%) Final Neutrophils [#/volume] in Blood by Manual count 04/06/2024 09:03:01 4.95 1.80-7.70 (K/uL) Final Lymphocytes [#/volume] in Blood by Manual count 04/06/2024 09:03:01 22.27 Above high normal 1.00-4.80 (K/uL) Final Eosinophils [#/volume] in Blood by Manual count 04/06/2024 09:03:01 0.27 0.00-0.70 (K/uL) Final Nucleated erythrocytes/100 leukocytes [Ratio] in Blood by Automated count 04/06/2024 09:03:01 Final Variant lymphocytes [Presence] in Blood by Light microscopy 04/06/2024 09:03:01 Present Abnormal None Seen Final Smudge cells [Presence] in Blood by Light microscopy 04/06/2024 09:03:01 Present Abnormal None Seen Final Performing Location [facility] [place] [address]
--- OUTSIDE RECORDS SUMMARY | 2024-08-26 09:43 | External Medical Summary ---
Author Name Unknown Address Unknown Organization K09:[facility] [address] [place] [address] Laboratory Report Ordering Provider Test Date Status KAMI CHAPMAN 03/26/2024 10:56:31 Final Observation Date Value Abnormality Reference (Units ) Status BUN 03/26/2024 10:56:31 17 6-20 (mg/dL) Final Creatinine 03/26/2024 10:56:31 1.3 Above high normal 0.6-1.2 (mg/dL) Final Glomerular filtration rate/1.73 sq M.predicted [Volume Rate/Area] in Serum, Plasma or Blood by Creatinine-based formula (CKD-EPI) 03/26/2024 10:56:31 52 Below low normal >=60 (mL/min) Final eGFR is calculated based on the CKD-EPI 2020 equation. Sodium 03/26/2024 10:56:31 143 135-146 (m mol/L) Final Potassium 03/26/2024 10:56:31 4.1 3.5-5.1 (m mol/L) Final Cl 03/26/2024 10:56:31 106 98-107 (mm ol/L) Final CO2 03/26/2024 10:56:31 25 22-32 (mmo l/L) Final Anion gap 03/26/2024 10:56:31 12 7-15 (mmol /L) Final Glucose 03/26/2024 10:56:31 90 70-120 (mg /dL) Final Albumin 03/26/2024 10:56:31 4.4 3.8-5.0 (g /dL) Final AST (Aspartate aminotransferase) 03/26/2024 10:56:31 19 10-50 (U/L) Fin al Alk Phos 03/26/2024 10:56:31 75 35-130 (U/ L) Final Bilirubin, Total 03/26/2024 10:56:31 0.7 <=1 .2 (mg/dL) Final Calcium 03/26/2024 10:56:31 9.2 8.4-10.2 ( mg/dL) Final Protein 03/26/2024 10:56:31 6.3 6.0-8.3 (g /dL) Final ALT (Alanine aminotransferase) 03/26/2024 10:56:31 <5 Below low normal 10-50 (U/L) Final Performing Location [facility] [address] [place] [address]
--- OUTSIDE RECORDS SUMMARY | 2024-08-26 09:43 | External Medical Summary | Summary of Care ---
Author Name Unknown Organization [facility] Address [address] [place] [address] Phone [phone] Care Team Providers Care Product Development Intern Name Role Phone Vincent Slaughter MD Primary Care Provider + Reason for Referral * Evaluate & Treat - Unlimited Visits (Within 30 days (routine)) - Authorized Specialty Diagnoses / Procedures Referred By Ousmane murray Referred To Contact Dermatology Diagnoses SCC (squamous cell carcinoma), ear, right Lilly Carmichael PA-C [address] [place] [address] Referral ID Status Reason Start Date Expiration Date Visits Requested Visits Authorized [id number] Authorized Specialty Services Required 03/23/2024 999 999 Question Answer Referral Priority Within 30 days (routine) Where should this appointment be scheduled? [facility] Are you referring the patient for Mohs Surgery and have a current positive skin cancer biopsy result? 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 30 mL 12 11/22/2022 Active [...] as of this encounter (statuses as of 03/25/2024) Active Problems Problem Noted Date Diagnosed Date [...] as of this encounter (statuses as of 03/25/2024) Resolved Problems Problem Noted Date Diagnosed Date [...] as of this encounter (statuses as of 03/25/2024) Immunizations Name Administration Dates Next Due Pneumococcal [...] encounter Miscellaneous Notes * Telephone Encounter - Lilly Carmichael PA-C - 03/23/2024 12:22 PM EDT Final Diagnosis B. Skin, R ear, shave: Well-differentiated invasive squamous cell carcinoma documented in this encounter Plan of Treatment Upcoming Encounters Date Type Department Care Team (Late st Contact Info) Description 03/26/2024 9:00 AM EDT Pharmacy Pharmacy Hematology Oncology [address] [address] [facility], [facility] Hem/Onc [address] [place] [address] 04/26/2024 12:20 PM EDT Office Visit Pulmonary Medicine, [facility] [address] [place] [address] Tomi Hayes DO [address] [place] [address] 05/05/2024 12:40 PM EDT Office Visit General Internal Medicine [facility] 200 [facility] [place] [address] Nazario Whaley, DO [address] [place] [address] 05/06/2024 3:00 PM EDT Office Visit Cardiology, [facility] [address] [facility] [address] Cuauhtemoc Jo, DO 132 [facility] [place] [address] 05/28/2024 1:00 PM EDT Office Visit Dermatology [facility] 200 [facility] [place] [address] Vincent Buck MD 200 [facility] [place] [address] 06/02/2024 9:30 AM EDT Office Visit Hematology/Oncology [facility] 200 [facility] [place] [phone] Lucien Jamil MD 200 [facility] [place], [place] [address] 09/27/2024 3:30 PM EST Office Visit Cardiology, [facility] [address] [place] [address] Cuauhtemoc Jo, DO [facility] [place] [address] 12/03/2024 11:15 AM EDT Office Visit Otolaryngology [facility] [address] [place] [address] Susanne Thrasher MD [address] [place] [address] Scheduled Referrals Name Type Priority Associated Diagnoses Orde r Schedule MOHS SURGERY REFERRAL OP Referral Within 30 days (routine) SCC (squamous cell carcinoma), ear, right Ordered: 03/23/2024 Health Maintenance Due Date Last Done Comments COVID-19 Vaccine (#1) 02/07/1945 Zoster Vaccines (1 of 2) 02/07/1959 Adult Wellness Visit 02/07/2006 CKD PHOS USE SMARTSET 95821 11/29/202311/03, 11/07/2022, 10/16/2021, Additional history exists Influenza Vaccine (FLU shot) (#1) 2024 Albumin/Creatinine Ratio 05/22/2024 023, 05/09/2022, 09/17/1999 Depression Screening 05/22/2024 05/22/2023 GFR 09/11/2024 03/11/2024, 02/02, 02/09/2024, Additional history exists DTaP,Tdap,and Td Vaccines (4 - Td or Tdap) 12/01/2024 12/01/2014, 12/01/2014, 12/01/2014 O2 ASSESSMENT COMPLETED IN PAST YEAR FOR COPD 03/01/2025 03/01/2024 CKD HGB USE SMARTSET 15930 03/11/202503/11, 03/11/2024, 02/26/2024, Additional history exists Pneumococcal Vaccine: 65+ Years [...] this encounter Medical Devices Implanted Type Area Measuring Clerk Device Identifier Shelf Expiration Date Model / Serial / Lot Valve Korey 3 Ultra 26mm - [id number] Implanted:Qty: 1 on 12/24/2022 by Jesse Tanner MD at [facility] [place] [employer] [id number] 07/03/2023 [id number] / / Lead Pace Selectsecure 3830-69 - [id number] Implanted:Qty: 1 on 12/26/2022 by Keily Kelley IV, MD at [facility] [place] [facility] [employer] : CRM [id number] 11/19/2024 [id number] / [id number] / [id number] Lead Novus Bipolar 52cm - [id number] Implanted:Qty: 1 on 12/26/2022 by Keily Kelley IV, MD at [facility] [place] [employer] : CRM [id number] 10/10/2024 5076- 52 / [id number] / [id number] Pacemaker [place] Xt Dr Kwesi Wrls - [id number] Implanted:Qty: 1 on 12/26/2022 by Keily Kelley IV, MD at [facility] [place] [facility] [employer] [id number] 05/17/2024 [id number] / [id number] / [id number] documented as of this encounter Visit Diagnoses Diagnosis SCC (squamous cell carcinoma), ear, right- Primary documented in this encounter Advance Directives * Full Code (Latest Code Status on File) Date Activated Date Inactivated Comments 12/24/2022 11:13 AM 12/27/2022 10:05 PM This order reflects the patients wishes and were consensually agreed upon. Question Answer Comments Discussion of Advance Directives occurred with: Patient Care Teams Product Development Intern Relationship Specialty Start Date End Date Vincent Slaughter MD [address] [facility] [place] [address] PCP - General Internal Medicine 05/22/21 documented as of this encounter
--- OUTSIDE RECORDS SUMMARY | 2024-08-26 09:43 | External Medical Summary | Summary of Care ---
Author Name Unknown Organization [facility] Address [address] [place] [address] Phone [phone] Care Team Providers Care Data Collection Associate Name Role Phone Vincent Slaughter MD Primary Care Provider + Reason for Visit * Reason Comments Outpatient Testing Encounter Details Date Type Department Care Team (Late st Contact Info) Description 04/06/2024 9:20 AM EDT Laboratory Laboratory [facility] [address] [place] [address] [facility] [address] [place] [address] CLL (chronic lymphocytic leukemia) (HCC) Allergies Active Allergy Reactions Criticality Noted Date Comments 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 30 mL 12 11/22/2022 Active [...] complication (HCC),Chronic bronchitis, unspecified chronic bronchitis type ([facility]),COPD (chronic obstructive pulmonary disease) with chronic bronchitis ([facility]),ILD (interstitial lung disease) ([facility]) Inhale 1 Puff by mouth in the morning. 60 Blister Dosing Unit 3 03/01/2024 Active Hospital, Clinic, or Other Facility Administered Medication Ordered Dose Route Frequency Start Date End Date Status Albuterol Sulfate (Proventil) (2.5 MG/3ML) 0.083% inhalation solution 2.5 mgIndications:ILD (interstitial lung disease) ([facility]),Hypersensitivity pneumonitis ([facility]),COPD, group B, by GOLD 2017 classification ([facility]),Dyspnea on exertion,Chronic cough 2.5 mg NEBULIZER ONCE PRN 01/07/2024 01/06/2025 Ac tive documented as of this encounter (statuses as of 04/06/2024) Active Problems Problem Noted Date Diagnosed Date [...] hemisphere infarct. Mri 01/14/2007 Mri done at [facility] Statin intolerance 07/27/2007 Overview: Hepatitis with Zocor Other sleep apnea 06/01/2001 documented as of this encounter (statuses as of 04/06/2024) Resolved Problems Problem Noted Date Diagnosed Date [...] hemisphere infarct. Mri 01/14/2007 Mri done at [facility] Cerebrovascular event, ill-d efined, within last 8 [...] as of this encounter (statuses as of 04/06/2024) Immunizations Name Administration Dates Next Due Pneumococcal [...] 9:00 AM EDT Pharmacy Pharmacy Hematology Oncology [facility] [address] [place] [address] [facility], [facility] Hem/Onc [address] [place] [address] 04/26/2024 8:00 AM EDT Office Visit MOHS Surgery [facility] [address] [place] [address] Candace Aguilar MD [address] [place] [address] 04/26/2024 3:20 PM EDT Office Visit Pulmonary Medicine, [facility] [address] [facility] [place] [address] Tomi Hayes [address] [place] [address] 05/05/2024 12:40 PM EDT Office Visit General Internal Medicine [facility] [address] [place] [address] Nazario Whaley, [address] [address] 05/06/2024 3:00 PM EDT Office Visit Cardiology, [facility] [place] [address] Cuauhtemoc Jo, DO [address] [place] [address] 05/28/2024 1:00 PM EDT Office Visit Dermatology [facility] [address] [place] [address] Vincent Buck MD [address] [place], [place] [address] 06/02/2024 9:30 AM EDT Office Visit Hematology/Oncology [facility] [address] [place] [address] Lucien Jamil MD 200 [facility] [place] [address] 09/27/2024 3:30 PM EST Office Visit Cardiology, [facility] [address] [place] [place] [address] Cuauhtemoc Jo, DO [address] [place] [address] 12/03/2024 11:15 AM EDT Office Visit Otolaryngology [facility] [address] [place] [address] Susanne Thrasher MD [address] [place] [address] Pending Results Name Type Priority Associated Diagnoses Date /Time CBC WITH WBC DIFFERENTIAL Lab STAT CLL (chronic lymphocytic leukemia) ([facility]) 04/06/2024 9:03 AM EDT COMPREHENSIVE METABOLIC PANEL Lab STAT CLL (chronic lymphocytic leukemia) ([facility]) 04/06/2024 9:03 AM EDT CBC Lab STAT CLL (chronic lymphocytic leukemia) ([facility]) 04/06/2024 9:03 AM EDT DIFFERENTIAL, AUTOMATED Lab STAT CLL (chronic lymphocytic leukemia) ([facility]) 04/06/2024 9:03 AM EDT Health Maintenance Due Date Last Done Comments COVID-19 Vaccine (#1) 02/07/1945 Zoster Vaccines (1 of 2) 02/07/1959 Adult Wellness Visit 02/07/2006 CKD PHOS USE SMARTSET 82167 11/29/2023/02/2023, 11/07/2022, 10/16/2021, Additional history exists Influenza Vaccine (FLU shot) (#1) 2024 Albumin/Creatinine Ratio 05/22/2024 023, 05/09/2022, 09/17/1999 Depression Screening 05/22/2024 05/22/2023 GFR 09/26/2024 03/26/2024, 08/0 03/2024, 02/26/2024, Additional history exists DTap/Tdap Vaccines (4 - Td or Tdap) 12/01/2024 12/01/2014, 12/01/2014, 12/01/2014 O2 ASSESSMENT COMPLETED IN PAST YEAR FOR COPD 03/01/2025 03/01/2024 CKD HGB USE SMARTSET 46849 03/26/202503/26, 03/26/2024, 03/11/2024, Additional history exists Pneumococcal Vaccine: 65+ Years [...] this encounter Medical Devices Implanted Type Area Paper Carrier Device Identifier Shelf Expiration Date Model / Serial / Lot Valve Korey 3 Ultra 26mm - [id number] Implanted:Qty: 1 on 12/24/2022 by Jesse Tanner [place] [facility] [place] [employer] [id number] 07/03/2023 [id number] / / Lead Pace Selectsecure 3830-69 - [id number] Implanted:Qty: 1 on 12/26/2022 by Keily Kelley IV, [place] [facility] [place] [employer] : CRM [id number] 11/19/2024 [id number] 9 / [id number] / [id number] Lead Novus Bipolar 52cm - [id number] Implanted:Qty: 1 on 12/26/2022 by Keily Kelley IV, [place] [facility] [place] [employer] : CRM [id number] 10/10/2024 5076- 52 / [id number] / [id number] Pacemaker [place] Xt Dr Mri Wrls - [id number] Implanted:Qty: 1 on 12/26/2022 by Keily Kelley IV, MD at [facility] [place] [employer] [id number] 05/17/2024 [id number] / [id number] / [id number] documented as of this encounter Visit Diagnoses [...] Advance Directives occurred with: Patient Care Teams Data Collection Associate Relationship Specialty Start Date End Date Vincent Slaughter MD [address] [place] [address] PCP - General Internal Medicine 05/22/21 documented as of this encounter
--- OUTSIDE RECORDS SUMMARY | 2024-08-26 09:43 | External Medical Summary ---
Author Name Unknown Address Unknown Organization [facility] [place] [address] Laboratory Report Ordering Provider Test Date Status KAMI CHAPMAN 04/06/2024 09:03:01 Final 2 times a week for 3-6 weeks , then every 1-2 weeks. Observation Date Value Abnormality Reference (Units ) Status WBC, Total 04/06/2024 09:03:01 27.49 Above high normal 4 .00-10.80 (K/uL) Final RBC 04/06/2024 09:03:01 3.79 4.50-5.25 (M/uL) Final Hemoglobin 04/06/2024 09:03:01 11.9 Below low normal 14 .0-16.8 (g/dL) Final HCT 04/06/2024 09:03:01 37.8 Below low normal 40. 0-48.4 (%) Final MCV 04/06/2024 09:03:01 99.7 82.0-99.5 (fL) Final MCH 04/06/2024 09:03:01 31.4 27.0-34.0 (pg) Final MCHC 04/06/2024 09:03:01 31.5 32.0-36.0 (g/dL) Final RDW 04/06/2024 09:03:01 14.3 11.5-15.5 (%) Final Platelets 04/06/2024 09:03:01 114 Below low normal 140 -400 (K/uL) Final MPV 04/06/2024 09:03:01 9.0 6.6-11.1 ( fL) Final Performing Location [facility] [place] [address]
--- OUTSIDE RECORDS SUMMARY | 2024-08-26 09:43 | External Medical Summary ---
Author Name Unknown Address Unknown Organization [facility] [address] [place] [address] Laboratory Report Ordering Provider Test Date Status KAMI CHAPMAN 04/06/2024 09:03:01 Final Observation Date Value Abnormality Reference (Units ) Status BUN 04/06/2024 09:03:01 22 Above high normal 6-20 (mg/dL) Final Creatinine 04/06/2024 09:03:01 1.4 Above high normal 0.6-1.2 (mg/dL) Final Glomerular filtration rate/1.73 sq M.predicted [Volume Rate/Area] in Serum, Plasma or Blood by Creatinine-based formula (CKD-EPI) 04/06/2024 09:03:01 49 Below low normal >=60 (mL/min) Final eGFR is calculated based on the CKD-EPI 2020 equation. Sodium 04/06/2024 09:03:01 141 135-146 (m mol/L) Final Potassium 04/06/2024 09:03:01 3.9 3.5-5.1 (m mol/L) Final Cl 04/06/2024 09:03:01 105 98-107 (mm ol/L) Final CO2 04/06/2024 09:03:01 24 22-32 (mmo l/L) Final Anion gap 04/06/2024 09:03:01 12 7-15 (mmol /L) Final Glucose 04/06/2024 09:03:01 108 70-120 (mg /dL) Final Albumin 04/06/2024 09:03:01 4.4 3.8-5.0 (g /dL) Final AST (Aspartate aminotransferase) 04/06/2024 09:03:01 22 10-50 (U/L) Fin al Alk Phos 04/06/2024 09:03:01 72 35-130 (U/ L) Final Bilirubin, Total 04/06/2024 09:03:01 0.6 <=1 .2 (mg/dL) Final Calcium 04/06/2024 09:03:01 9.2 8.4-10.2 ( mg/dL) Final Protein 04/06/2024 09:03:01 6.5 6.0-8.3 (g /dL) Final ALT (Alanine aminotransferase) 04/06/2024 09:03:01 7 Below low normal 10-50 (U/L) Final Performing Location [facility] [address] [place] [address]
--- OUTSIDE RECORDS SUMMARY | 2024-08-26 09:43 | External Medical Summary ---
Author Name Unknown Address Unknown Organization K09:[facility] [place] [address] Laboratory Report Ordering Provider Test Date Status CHAPMANKAMI 03/26/2024 10:56:31 Final 2 times a week for 3-6 weeks , then every 1-2 weeks. Observation Date Value Abnormality Reference (Units ) Status SYNC LEUKOCYTES IN BLOOD BY AUTOMATED COUNT 03/26/2024 10:56:31 23.69 Above high normal 4.00-10.80 (K/uL) Final Neutrophils/100 leukocytes in Blood by Manual count 03/26/2024 10:56:31 17.0 Below low normal 40.0-75.0 (%) Final Lymphocytes/100 leukocytes in Blood by Manual count 03/26/2024 10:56:31 81.0 Above high normal 18.0-42.0 (%) Final Monocytes/100 leukocytes in Blood by Manual count 03/26/2024 10:56:31 2.0 1.0-11.0 (%) Final Neutrophils [#/volume] in Blood by Manual count 03/26/2024 10:56:31 4.03 1.80-7.70 (K/uL) Final Lymphocytes [#/volume] in Blood by Manual count 03/26/2024 10:56:31 19.19 Above high normal 1.00-4.80 (K/uL) Final Monocytes [#/volume] in Blood by Manual count 03/26/2024 10:56:31 0.47 0.00-1.10 (K/uL) Final Nucleated erythrocytes/100 leukocytes [Ratio] in Blood by Automated count 03/26/2024 10:56:31 Final Performing Location [facility] [place] [address]
--- OUTSIDE RECORDS SUMMARY | 2024-08-26 09:43 | External Medical Summary | Summary of Care ---
Author Name Unknown Organization [facility] Address [address] [place] [address] Phone [phone] Care Team Providers Care Senior Systems Programmer Name Role Phone Vincent Slaughter MD Primary Care Provider + Reason for Referral * Evaluate & Treat - Unlimited Visits (Within 30 days (routine)) - Authorized Specialty Diagnoses / Procedures Referred By Ousmane murray Referred To Contact Dermatology Diagnoses SCC (squamous cell carcinoma), ear, right Lilly Carmichael PA-C [address] [place] [id number] Referral ID Status Reason Start Date Expiration Date Visits Requested Visits Authorized [id number] Authorized Specialty Services Required 03/23/2024 999 999 [...] [id number] Lilly Carmichael PA-C [address] [place] [id number] Scheduling Allergies Active Allergy Reactions Criticality Noted Date Comments 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 30 mL 12 11/22/2022 Active [...] as of this encounter (statuses as of 03/26/2024) Active Problems Problem Noted Date Diagnosed Date [...] infarct. Mri 01/14/2007 Mri done at [facility] Statin intolerance 07/27/2007 Overview: Hepatitis with Zocor Other sleep apnea 06/01/2001 documented as of this encounter (statuses as of 03/26/2024) Resolved Problems Problem Noted Date Diagnosed Date [...] infarct. Mri 01/14/2007 Mri done at [facility] Cerebrovascular event, ill-d efined, within [...] as of this encounter (statuses as of 03/26/2024) Immunizations Name Administration Dates Next Due Pneumococcal [...] encounter Miscellaneous Notes * Telephone Encounter - Obdulia Valverde OSA - 03/26/2024 11:58 AM EDT Luis M came to [facility] and stopped by the [facility] dept. I scheduled him for April 26 at 8AM He also has a Poluminary appt at [facility] on same day. Called over and moved his appt to 3:20PM same day. He asked me to send him a [facility] packet. Sent his appt reminders to his home and wrote note that if he needed to change appts to call and let me know * Telephone Encounter - Lilly Carmichael PA-C - 03/23/2024 12:22 PM EDT Final Diagnosis B. Skin, R ear, shave: Well-differentiated invasive squamous cell carcinoma documented in this encounter Plan of Treatment Upcoming Encounters Date Type Department Care Team (Late st Contact Info) Description 04/26/2024 8:00 AM EDT Office Visit MOHS Surgery [facility] 200 [facility] [place] [address] Candace Aguilar MD [address] [place] [address] [place] [address] 04/26/2024 3:20 PM EDT Office Visit Pulmonary Medicine, [facility] [address] [place] [address] Tomi Hayes DO [address] [place] [address] 05/05/2024 12:40 PM EDT Office Visit General Internal Medicine [address] [place] [address] Nazario Whaley, [address] [place] [address] 05/06/2024 3:00 PM EDT Office Visit Cardiology, [facility] 132 [facility] [place] [address] Cuauhtemoc Jo, DO 132 [facility] [place] [address] 05/28/2024 1:00 PM EDT Office Visit Dermatology [facility] 200 [facility] [place] [address] Vincent Buck MD [address] [place] [address] [place] [address] 06/02/2024 9:30 AM EDT Office Visit Hematology/Oncology [facility] 200 [facility] [place] [address] Lucien Jamil MD 200 [facility] [place] [address] 09/27/2024 3:30 PM EST [facility] [place] [address] Cuauhtemoc Jo DO [address] [place] [address] 12/03/2024 11:15 AM EDT Office Visit Otolaryngology [facility] [address] [place] [address] Susanne Thrasher MD [address] [place] [address] Scheduled Referrals Name Type Priority Associated Diagnoses Orde r Schedule MOHS SURGERY REFERRAL OP Referral Within 30 days (routine) SCC (squamous cell carcinoma), ear, right Ordered: 03/23/2024 Health Maintenance Due Date Last Done Comments COVID-19 Vaccine (#1) 02/07/1945 Zoster Vaccines (1 of 2) 02[birth year]07/1959 Adult Wellness Visit 02/07/2006 CKD PHOS USE SMARTSET 29344 11/29/202311/03, 11/07/2022, 10/16/2021, Additional history exists Influenza Vaccine (FLU shot) (#1) 2024 Albumin/Creatinine Ratio 05/22/2024 023, 05/09/2022, 09/17/1999 Depression Screening 05/22/2024 05/22/2023 GFR 09/26/2024 03/26/2024, 08/0 03/2024, 02/26/2024, Additional history exists DTaP,Tdap,and Td Vaccines (4 - Td or Tdap) 12/01/2024 12/01/2014, 12/01/2014, 12/01/2014 O2 ASSESSMENT COMPLETED IN PAST YEAR FOR COPD 03/01/2025 03/01/2024 CKD HGB USE SMARTSET 81267 03/26/202503/26, 03/26/2024, 03/11/2024, Additional history exists Pneumococcal [...] this encounter Medical Devices Implanted Type Area Parking Patroller Device Identifier Shelf Expiration Date Model / Serial / Lot Valve Korey 3 Ultra 26mm - [id number] Implanted:Qty: 1 on 12/24/2022 by Jesse Tanner MD at [facility] [employer] [id number] 07/03/2023 [id number] / / Lead Pace Selectsecure 3830-69 - [id number] Implanted:Qty: 1 on 12/26/2022 by Keily Kelley IV, MD at [facility] [employer] : CRM [id number] 11/19/2024 [id number] / [id number] / [id number] Lead Novus Bipolar 52cm - [id number] Implanted:Qty: 1 on 12/26/2022 by Keily Kelley IV, MD at [facility] [employer] : CRM [id number] 10/10/2024 5076- 52 / [id number] / [id number] Pacemaker Parul Xt Dr Kw[facility] - [id number] Implanted:Qty: 1 on 12/26/2022 by Keily Kelley IV, MD at [facility] [employer] [id number] 05/17/2024 [id number] / [id number] / [id number] documented as of this encounter Visit Diagnoses [...] Directives occurred with: Patient Care Teams Senior Systems Programmer Relationship Specialty Start Date End Date Vincent Slaughter MD [address] [place] [address] PCP - General Internal Medicine 05/22/21 documented as of this encounter
--- OUTSIDE RECORDS SUMMARY | 2024-08-26 09:43 | External Medical Summary | Summary of Care ---
Author Name Unknown Organization [facility] Address [address] [place] [address] Phone [phone] Care Team Providers Care Locomotive Crane Operator Name Role Phone Vincent Slaughter MD Primary Care Provider + Reason for Visit * Reason Comments Medication Management Encounter Details Date Type Department Care Team (Late st Contact Info) Description 03/26/2024 9:00 AM EDT Pharmacy Pharmacy Hematology Oncology [facility] [address] [place], [place] [id number] [facility] Hem/Onc [address] [place], [place] [id number] CLL (chronic lymphocytic leukemia) ([facility])* Allergies Active Allergy Reactions Criticality Noted Date [...] 0.1 % Nasal Solution (Astelin) Administer 1 [place] into nostril in the morning and 1 Severy before bedtime. 30 mL 12 11/22/2022 Active [...] Oral Tablet (Leukeran)Indicatio ns:CLL (chronic lymphocytic leukemia) ([facility]) Take 1 Tablet by mouth in the [...] complication (HCC),Chronic bronchitis, unspecified chronic bronchitis type ([facility]),COPD (chronic obstructive pulmonary disease) with chronic bronchitis ([facility]),ILD (interstitial lung disease) ([facility]) Inhale 1 Puff by mouth in the morning. 60 Blister Dosing Unit 3 03/01/2024 Active Hospital, Clinic, or Other Facility Administered Medication Ordered Dose Route Frequency Start Date End Date Status Albuterol Sulfate (Proventil) (2.5 MG/3ML) 0.083% inhalation solution 2.5 mgIndications:ILD (interstitial lung disease) ([facility]),Hypersensitivity pneumonitis ([facility]),COPD, group B, by GOLD 2017 classification ([facility]),Dyspnea on exertion,Chronic cough 2.5 mg NEBULIZER ONCE [...] chronic sinusitis 03/27/200508/2018 CHRONIC LYMPHOID LEUKEMIA [place] [facility] MENTION OF REMISSION 02/25/2005 04/14/2018 ADVANCE [...] this encounter Progress Notes * Juanis Bay, [facility] - 03/26/2024 12:45 PM EDT MEDICATION THERAPY MANAGEMENT CHLORAMBUCIL (LEUKERAN) TREATMENT PROGRESS NOTE Luis M Tirado [id number] Patient Phone Numbers SPEAK LOUD HARD OF HEARING AND DIFFICULTY WITH TOUCH SCREEN PHONE Communication: Spoke to: Patient Current Treatment: Medication: Chlorambucil (Leukeran) Indication: CLL Dose: 2 mg daily Administration: by mouth without regards to food Start Date: 11/16/19; 11/30/23 Primary Special Agent In Charge: Dr. Jamil Prophylactic Meds: Allopurinol 200 mg [...] WBC/ALC elevated but declining Hgb low but stable PLT improving at grade 1 thrombocytopenia BUN and creatinine declining to WNL All other labs stable Continue chlorambucil and q2wk labs Assessment of compliance: compliant Assessment of adverse effects attributed to drug therapy: Fever - absent Neuropathy - absent Nausea/Vomiting - absent Diarrhea - absent Pneumonitis - absent Rash - absent Stomatitis - absent Dose adjustment needed based on lab or adverse drug reaction? No Follow up: 2 weeks Juanis Bay, PharmD, BCOP Clinical Pharmacist, MTDM Oral Chemotherapy [facility] 03/26/2024, 12:54 PM Pertinent labs: Latest Reference Range & Units 02/26/24 10:53 03/11/24 08:41 03/26/24 10:56 WBC 4.00 - 10.80 K/uL 37.55 (H) 29.29 (H) 23.69 (H) RBC 4.50 - 5.25 M/uL 3.59 3.60 3.48 HGB 14.0 - 16.8 g/dL 11.4 (L) 11.5 (L) 11.0 (L) HCT 40.0 - 48.4 % 35.3 (L) 35.9 (L) 34.7 (L) MCV 82.0 - 99.5 fL 98.3 99.7 99.7 MCH 27.0 - 34.0 pg 31.8 31.9 31.6 MCHC 32.0 - 36.0 g/dL 32.3 32.0 31.7 RDW 11.5 - 15.5 % 15.2 14.9 14.7 PLT 140 - 400 K/uL 101 (L) 85 (L) 93 (L) MPV 6.6 - 11.1 fL 9.4 9.0 8.9 CBC WITH WBC DIFFERENTIAL Rpt ! Rpt ! Rpt ! Absolute Neutrophils 1.80 - 7.70 K/uL 2.63 3.22 4.03 Absolute Lymphocytes 1.00 - 4.80 K/uL 34.17 (H) 24.90 (H) 19.19 (H) Latest Reference Range & Units 02/26/24 10:53 03/11/24 08:41 03/26/24 10:56 BUN 6 - 20 mg/dL 21 (H) 17 17 Creatinine 0.6 - 1.2 mg/dL 1.3 (H) 1.2 1.3 (H) Estimated Glomerular Filtration Rate >=60 mL/min 56 (L) 58 (L) 52 (L) Latest Reference Range & Units 02/26/24 10:53 03/11/24 08:41 03/26/24 10:56 Albumin 3.8 - 5.0 g/dL 4.6 4.6 4.4 AST 10 - 50 U/L 23 26 19 ALT 10 - 50 U/L 11 10 <5 (L) Alkaline Phosphatase 35 - 130 U/L 73 73 75 Bilirubin, Total <=1.2 mg/dL 0.5 0.4 0.7 Suggested Labs: Monitor LFTs, CBC/diff weekly, with [...] (Level 1) * Leanna Strange OSA - 03/26/2024 9:00 AM EDT MEDICATION THERAPY MANAGEMENT CHLORAMBUCIL (LEUKERAN) TREATMENT PROGRESS NOTE Luis M Tirado [id number] Patient Phone Numbers SPEAK LOUD HARD OF HEARING AND DIFFICULTY WITH TOUCH SCREEN PHONE Communication: Spoke to: Patient Current Treatment: Medication: Chlorambucil (Leukeran) Indication: CLL Dose: 2 mg daily Administration: by mouth without regards to food Start Date: 11/16/19; 11/30/23 Primary Special Agent In Charge: Dr. Jamil Assessment and Plan: Patient will be going for labs today via walk in. LINDA [employer] Intern Pharmacy Hematology Oncology Oral Chemotherapy Clinic Medication Therapy Disease Management [facility] 03/26/24 9:19 AM Time Spent on Encounter: < 5 [...] 9:00 AM EDT Pharmacy Pharmacy Hematology Oncology [place] [address] [place] [address] [facility], [facility] Hem/Onc [address] [place] [address] 04/26/2024 8:00 AM EDT Office Visit MOHS Surgery [facility] 200 [facility] [place] [address] Candace Aguilar MD 200 [facility] [place] [address] 04/26/2024 3:20 PM EDT Office Visit Pulmonary Medicine, [facility] 132 [facility] [place] [address] Tomi Hayes DO [address] [place] [address] 05/05/2024 12:40 PM EDT Office Visit General Internal Medicine [facility] 200 [facility] [place], [place] [address] Nazario Whaley, DO [address] [place] [address] 05/06/2024 3:00 PM EDT Office Visit Cardiology, [facility] [address] [facility] [place] [address] Cuauhtemoc Jo, DO 132 [facility] [place] [address] 05/28/2024 1:00 PM EDT Office Visit Dermatology [facility] 200 [facility] [place], [place] [address] Vincent Buck MD 200 [facility] [place], [place] [address] 06/02/2024 9:30 AM EDT Office Visit Hematology/Oncology [facility] [address] [place], [place] [id number] Lucien Jamil MD 200 [facility] [place], [place] [address] 09/27/2024 3:30 PM EST Office Visit Cardiology, [facility] [address] [place] [address] Cuauhtemoc Jo DO [address] [place] [address] 12/03/2024 11:15 AM EDT Office Visit Otolaryngology [facility] [address] [place] [address] Susanne Thrasher MD [address] [place] [address] Health Maintenance Due Date Last Done Comments COVID-19 Vaccine (#1) 02/07/1945 Zoster Vaccines (1 of 2) 02/07/1959 Adult Wellness Visit 02/07/2006 CKD PHOS USE SMARTSET 51787 11/29/202311/03, 11/07/2022, 10/16/2021, Additional history exists Influenza Vaccine (FLU shot) (#1) 2024 Albumin/Creatinine Ratio 05/22/2024 023, 05/09/2022, 09/17/1999 Depression Screening 05/22/2024 05/22/2023 GFR 09/26/2024 03/26/2024, 08/0 03/2024, 02/26/2024, Additional history exists DTaP,Tdap,and Td Vaccines (4 - Td or Tdap) 12/01/2024 12/01/2014, 12/01/2014, 12/01/2014 O2 ASSESSMENT COMPLETED IN PAST YEAR FOR COPD 03/01/2025 03/01/2024 CKD HGB USE SMARTSET 06659 03/26/202503/26, 03/26/2024, 03/11/2024, Additional history exists Pneumococcal [...] this encounter Medical Devices Implanted Type Area Stick Welder Device Identifier Shelf Expiration Date Model / Serial / Lot Valve Korey 3 Ultra 26mm - [id number] Implanted:Qty: 1 on 12/24/2022 by Jesse Tanner MD at [facility] [employer] [id number] 07/03/2023 [id number] / / Lead Pace Selectsecure 3830-69 - [id number] Implanted:Qty: 1 on 12/26/2022 by Keily Kelley IV, MD at [facility] [employer] : CRM [id number] 11/19/2024 [id number] 9 / [id number] / [id number] Lead Novus Bipolar 52cm - [id number] Implanted:Qty: 1 on 12/26/2022 by Keily Kelley IV, MD at [facility] [employer] : CRM [id number] 10/10/2024 5076- 52 / [id number] / [id number] Pacemaker Parul Xt Dr [facility] - [id number] Implanted:Qty: 1 on 12/26/2022 by Keily Kelley IV, MD at [facility] [employer] [id number] 05/17/2024 W1DR01 / [id number] / [id number] documented as of this encounter Visit Diagnoses [...] Advance Directives occurred with: Patient Care Teams Locomotive Crane Operator Relationship Specialty Start Date End Date Vincent Slaughter MD 200 [facility] [place] [address] PCP - General Internal Medicine 10/19/21 documented as of this encounter
--- OUTSIDE RECORDS SUMMARY | 2024-08-26 09:43 | External Medical Summary | Summary of Care ---
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 30 mL 12 11/22/2022 Active [...] with chronic bronchitis (HCC),ILD (interstitial lung disease) ([facility]) Inhale 1 Puff by mouth in the morning. 60 Blister Dosing Unit 3 03/01/2024 Active Hospital, Clinic, or Other Facility Administered Medication Ordered Dose Route Frequency Start Date End Date Status Albuterol Sulfate (Proventil) (2.5 MG/3ML) 0.083% inhalation solution 2.5 mgIndications:ILD (interstitial lung disease) ([facility]),Hypersensitivity pneumonitis (HCC),COPD, group B, by GOLD 2017 classification ([facility]),Dyspnea on exertion,Chronic cough 2.5 mg NEBULIZER ONCE PRN 01/07/2024 01/06/2025 Ac tive documented as of this encounter (statuses as of 03/17/2024) Active Problems Problem Noted Date Diagnosed Date [...] as of this encounter (statuses as of 03/17/2024) Resolved Problems Problem Noted Date Diagnosed Date [...] as of this encounter (statuses as of 03/17/2024) Immunizations Name Administration Dates Next Due Pneumococcal [...] Care Team (Late st Contact Info) Description 03/18/2024 1:00 PM EDT Cardiac Studies Cardiac Studies, [facility] [place] [address] 03/26/2024 9:00 AM EDT Pharmacy Pharmacy Hematology Oncology [facility] [address] [place] [address] [facility], [facility] Hem/Onc [address] [place] [address] 04/26/2024 12:20 PM EDT Office Visit Pulmonary Medicine, [facility] 132 [facility] [place] [address] Tomi Hayes DO [address] [place] [address] 05/05/2024 12:40 PM EDT Office Visit General Internal Medicine [facility] [address] [place] [address] Nazario Whaley, [address] [address] 05/28/2024 1:00 PM EDT [facility] [place] [address] [place] [address] Vincent Buck MD [address] [place] [address] 06/02/2024 9:30 AM EDT Office Visit Hematology/Oncology [facility] [place] [address] [place] [address] [phone] Lucien Jamil MD [address] [place] [address] 09/27/2024 3:30 PM EST Office Visit Cardiology, [facility] [address] [place] [address] Cuauhtemoc Jo DO [address] [place] [address] 12/03/2024 11:15 AM EDT Office Visit Otolaryngology [facility] [address] [place] [address] Susanne Thrasher MD [address] [place] [address] Health Maintenance Due Date Last Done Comments COVID-19 Vaccine (#1) 02/07/1945 Zoster Vaccines (1 of 2) 02/07/1959 Adult Wellness Visit 02/07/2006 CKD PHOS USE SMARTSET 18210 11/29/202311/03, 11/07/2022, 10/16/2021, Additional history exists Influenza Vaccine (FLU shot) (#1) 2024 Albumin/Creatinine Ratio 05/22/2024 023, 05/09/2022, 09/17/1999 Depression Screening 05/22/2024 05/22/2023 GFR 09/11/2024 03/11/2024, 02/02, 02/09/2024, Additional history exists DTaP,Tdap,and Td Vaccines (4 - Td or Tdap) 12/01/2024 12/01/2014, 12/01/2014, 12/01/2014 O2 ASSESSMENT COMPLETED IN PAST YEAR FOR COPD 03/01/2025 03/01/2024 CKD HGB USE SMARTSET 27184 03/11/202503/11, 03/11/2024, 02/26/2024, Additional history exists Pneumococcal [...] this encounter Medical Devices Implanted Type Area Scrap Handler Device Identifier Shelf Expiration Date Model / Serial / Lot Valve Korey 3 Ultra 26mm - [id number] Implanted:Qty: 1 on 12/24/2022 by Jesse Tanner MD at [facility] [employer] [id number] 07/03/2023 [id number] / / Lead Pace [employer] 3830-69 - [id number] Implanted:Qty: 1 on 12/26/2022 by Keily Kelley IV, MD at [facility] [employer] : CRM [id number] 11/19/2024 [id number] 9 / [id number] / [id number] Lead Novus Bipolar 52cm - [id number] Implanted:Qty: 1 on 12/26/2022 by Keily Kelley IV, MD at [facility] [employer] : CRM [id number] 10/10/2024 5076- 52 / [id number] / [id number] Pacemaker Parul Xt Dr Mri [facility] - [id number] Implanted:Qty: 1 on 12/26/2022 by Keily Kelley IV, MD at [facility] [employer] [id number] 05/17/2024 W1DR01 / [id number] / [id number] documented as of this encounter Procedures Procedure Name Priority Date/Time Associated Diagnosis Comments DERM EXAM - DERM (IMAGES ONLY, NO REPORT) Routine 03/16/2024 11:44 AM EDT Skin neoplasm AK (actinic keratosis) documented in this encounter Results * DERM EXAM - DERM (IMAGES ONLY, NO REPORT) (03/16/2024 11:44 AM EDT) Narrative Scheduling, Silent - 03/16/2024 11:44 AM EDT This is an imaging study not interpreted or resulted by a [facility] or [facility] contracted radiologist. Lilly Carmichael PA-C RADIOLO GY (RAD GENERAL) documented in this encounter Advance Directives * Full Code (Latest Code Status on File) Date Activated Date Inactivated Comments 12/24/2022 11:13 AM 12/27/2022 10:05 PM This order reflects the patients wishes and were consensually agreed upon. Question Answer Comments Discussion of Advance Directives occurred with: Patient Care Teams Operations Examiner Relationship Specialty Start Date End Date Vincent Slaughter MD 200 [place] [id number] PCP - General Internal Medicine 05/22/21 documented as of this encounter
--- OUTSIDE RECORDS SUMMARY | 2024-08-26 09:43 | External Medical Summary | Summary of Care ---
Author Name Unknown Organization [facility] Address [address] [place] [address] Phone [phone] Care Team Providers Care Tool Mechanic Name Role Phone Vincent Slaughter MD Primary Care Provider + Reason for Visit * Reason Comments Outpatient Testing Encounter Details Date Type Department Care Team (Late st Contact Info) Description 03/26/2024 10:50 AM EDT Laboratory Laboratory [facility] [address] [place] [address] [facility] [address] [place] [address] CLL (chronic lymphocytic leukemia) (HCC) Allergies Active [...] 0.1 % Nasal Solution (Astelin) Administer 1 [place] into nostril in the morning and 1 [place] before bedtime. 30 mL 12 11/22/2022 Active [...] complication (HCC),Chronic bronchitis, unspecified chronic bronchitis type ([facility]),COPD (chronic obstructive pulmonary disease) with chronic bronchitis ([facility]),ILD (interstitial lung disease) ([facility]) Inhale 1 Puff by mouth in the morning. 60 Blister Dosing Unit 3 03/01/2024 Active Hospital, Clinic, or Other Facility Administered Medication Ordered Dose Route Frequency Start Date End Date Status Albuterol Sulfate (Proventil) (2.5 MG/3ML) 0.083% inhalation solution 2.5 mgIndications:ILD (interstitial lung disease) ([facility]),Hypersensitivity pneumonitis ([facility]),COPD, group B, by GOLD 2017 classification ([facility]),Dyspnea on exertion,Chronic cough 2.5 mg NEBULIZER [...] at [facility] Statin intolerance 07/27/2007 Overview: Hepatitis with [...] 8:00 AM EDT Office Visit MOHS Surgery [facility] [address] [address] Candace Aguilar MD [address] [facility] [place] [address] 04/26/2024 12:20 PM EDT Office Visit Pulmonary Medicine, [facility] [address] [facility] [place] [address] Tomi Hayes DO [address] [place] [address] 05/05/2024 12:40 PM EDT Office Visit General Internal Medicine [facility] [address] [facility] [place] [address] Nazario Whaley, DO [address] [place] [address] 05/06/2024 3:00 PM EDT Office Visit Cardiology, [facility] [place] [address] Cuauhtemoc Jo, DO [address] [facility] [place] [address] 05/28/2024 1:00 PM EDT Office Visit Dermatology [facility] [address] [facility] [place] [address] Vincent Buck MD [address] [facility] [place] [address] 06/02/2024 9:30 AM EDT Office Visit Hematology/Oncology [facility] [address] [facility] [place], [place] [phone] Lucien Jamil MD [address] [facility] [place], [place] [address] 09/27/2024 3:30 PM EST Office Visit Cardiology, [facility] [address] [place] [address] Cuauhtemoc Jo DO [address] [place] [address] 12/03/2024 11:15 AM EDT Office Visit Otolaryngology [facility] [address] [place] [address] Susanne Thrasher MD [address] [place] [address] Pending Results Name Type Priority Associated Diagnoses Date /Time CBC WITH WBC DIFFERENTIAL Lab STAT CLL (chronic lymphocytic leukemia) ([facility]) 03/26/2024 10:56 AM EDT COMPREHENSIVE METABOLIC PANEL Lab STAT CLL (chronic lymphocytic leukemia) ([facility]) 03/26/2024 10:56 AM EDT CBC Lab STAT CLL (chronic lymphocytic leukemia) ([facility]) 03/26/2024 10:56 AM EDT DIFFERENTIAL, AUTOMATED Lab STAT CLL (chronic lymphocytic leukemia) ([facility]) 03/26/2024 10:56 AM EDT Health Maintenance Due Date Last Done Comments COVID-19 Vaccine (#1) 02/07/1945 Zoster Vaccines (1 of 2) 02/07/1959 Adult Wellness Visit 02/07/2006 CKD PHOS USE SMARTSET 36083 11/29/2023 04/2 02/2023, 11/07/2022, 10/16/2021, Additional history exists Influenza Vaccine (FLU shot) (#1) 2024 Albumin/Creatinine Ratio 05/22/2024 023, 05/09/2022, 09/17/1999 Depression Screening 05/22/2024 05/22/2023 GFR 09/11/2024 03/11/2024, 02/02, 02/09/2024, Additional history exists DTaP,Tdap,and Td Vaccines (4 - Td or Tdap) 12/01/2024 12/01/2014, 12/01/2014, 12/01/2014 O2 ASSESSMENT COMPLETED IN PAST YEAR FOR COPD 03/01/2025 03/01/2024 CKD HGB USE SMARTSET 05407 03/11/202503/11, 03/11/2024, 02/26/2024, Additional history exists Pneumococcal [...] this encounter Medical Devices Implanted Type Area Speech Lang Path Therapist Device Identifier Shelf Expiration Date Model / Serial / Lot Valve Korey 3 Ultra 26mm - [id number] Implanted:Qty: 1 on 12/24/2022 [place] Tanner [place] [facility] [place] [employer] [id number] 07/03/2023 [id number] / / Lead Pace [employer] 3830-69 - [id number] Implanted:Qty: 1 on 12/26/2022 by Keily Kelley IV, [place] [facility] [place] [employer] : [place] [id number] 11/19/2024 [id number] / [id number] / [id number] Lead Novus Bipolar 52cm - [id number] Implanted:Qty: 1 on 12/26/2022 by Keily Kelley IV, [place] at [facility] [place] [employer] : [employer] [id number] 10/10/2024 5076- 52 / [id number] / [id number] Pacemaker Parul Xt Dr Orosco [facility] - [id number] Implanted:Qty: 1 on 12/26/2022 by Keily Kelley IV, [place] at [facility] [place] [employer] [id number] 05/17/2024 [id number] / [id number] / [id number] documented as of this encounter Visit Diagnoses [...] Advance Directives occurred with: Patient Care Teams Tool Mechanic Relationship Specialty Start Date End Date Vincent Slaughter MD [address] [facility] [place] [address] PCP - General Internal Medicine 05/22/21 documented as of this encounter
--- OUTSIDE RECORDS SUMMARY | 2024-08-26 09:43 | External Medical Summary | Summary of Care ---
Author Name Unknown Organization [facility] Address [address] [place] [address] Phone [phone] Care Team Providers Care Regional Vice President Surgical Sales Name Role Phone Vincent Slaughter MD Primary Care Provider + Reason for Visit * Reason Onset Date Comments Test Results 03/22/2024 Encounter Details Date Type Department Care Team (Late st Contact Info) Description 03/22/2024 Telephone Cardiology, [facility] [address] [place] [address] Matilde Ureña CRNP [address] [facility] [place] [address] Test Results Allergies Active Allergy Reactions Criticality Noted Date [...] 0.1 % Nasal Solution (Astelin) Administer 1 [place] into nostril in the morning and 1 [place] before bedtime. 30 mL 12 11/22/2022 Active [...] bronchitis (HCC),ILD (interstitial lung disease) ([facility]) Inhale 1 Puff by mouth in the morning. 60 Blister Dosing Unit 3 03/01/2024 Active Hospital, Clinic, or Other Facility Administered Medication Ordered Dose Route Frequency Start Date End Date Status Albuterol Sulfate (Proventil) (2.5 MG/3ML) 0.083% inhalation solution 2.5 mgIndications:ILD (interstitial lung disease) ([facility]),Hypersensitivity pneumonitis (HCC),COPD, group B, by GOLD 2017 classification ([facility]),Dyspnea on exertion,Chronic cough 2.5 mg NEBULIZER ONCE [...] infarct. Mri 01/14/2007 Mri done at [facility] Statin intolerance 07/27/2007 Overview: Hepatitis with [...] infarct. Mri 01/14/2007 Mri done at [facility] Cerebrovascular event, ill-d efined, within last [...] encounter Miscellaneous Notes * Telephone Encounter - Joel Lugo OSA - 03/22/2024 3:56 PM EDT I scheduled him for a return with Sandro, and kept the appt in September, in case he wants a FU. Patient has been scheduled for a FU on: RETURN CARDIOLOGY at 3:00 PM (30 min)Arrive by 2:45 PM May Appointment Provider:Cuauhtemoc Jo DO in CARDIOLOGY [facility] * Telephone Encounter - Yuli Hinojosa LPN - 03/22/2024 1:59 PM EDT No answer, I left a message for pt to return call. Please transfer to clinic when they call back. * Telephone Encounter - Yuli Hinojosa LPN - 03/22/2024 1:59 PM EDT ----- Message from Matilde Ureña sent at 03/22/2024 12:55 PM EDT ----- Echo 1 year s/p echo shows normal pumping function. TAVR gradients are stable. You now have moderate pulmonary HTN Can we move patients appointment up at [facility]? documented in this encounter Plan of Treatment Upcoming Encounters Date Type Department Care Team (Late st Contact Info) Description 03/26/2024 9:00 AM EDT Pharmacy Pharmacy Hematology Oncology [facility] [place] [address] [place] [address] [facility] Hem[facility]Onc [address] [place] [address] 04/26/2024 12:20 PM EDT Office Visit Pulmonary Medicine, [facility] [address] [place] [address] Tomi Hayes DO [address] [place] [address] 05/05/2024 12:40 PM EDT Office Visit General Internal Medicine [facility] [address] [place] [address] Nazario Whaley, [address] [address] 05/06/2024 3:00 PM EDT Office Visit Cardiology, [facility] [address] [place] [address] Cuauhtemoc Jo, [facility] [place] [address] 05/28/2024 1:00 PM EDT Office Visit Dermatology [facility] [address] [place] [address] Vincent Buck MD [address] [place] [address] 06/02/2024 9:30 AM EDT Office Visit Hematology/Oncology [facility] [address] [place] [phone] Lucien Jamil MD [address] [place] [address] 09/27/2024 3:30 PM EST Office Visit Cardiology, [facility] [address] [place] [address] Cuauhtemoc Jo DO [address] [place] [address] 12/03/2024 11:15 AM EDT Office Visit Otolaryngology [facility] [address] [place] [address] Susanne Thrasher MD [address] [place] [address] Health Maintenance Due Date Last Done Comments COVID-19 Vaccine (#1) 02/07/1945 Zoster Vaccines (1 of 2) 02/07/1959 Adult Wellness Visit 02/07/2006 CKD PHOS USE SMARTSET 86399 11/29/202311/03, 11/07/2022, 10/16/2021, Additional history exists Influenza Vaccine (FLU shot) (#1) 2024 Albumin/Creatinine Ratio 05/22/2024 023, 05/09/2022, 09/17/1999 Depression Screening 05/22/2024 05/22/2023 GFR 09/11/2024 03/11/2024, 02/02, 02/09/2024, Additional history exists DTaP,Tdap,and Td Vaccines (4 - Td or Tdap) 12/01/2024 12/01/2014, 12/01/2014, 12/01/2014 O2 ASSESSMENT COMPLETED IN PAST YEAR FOR COPD 03/01/2025 03/01/2024 CKD HGB USE SMARTSET 90560 03/11/202503/11, 03/11/2024, 02/26/2024, Additional history exists Pneumococcal [...] this encounter Medical Devices Implanted Type Area Lead Pourer Device Identifier Shelf Expiration Date Model / Serial / Lot Valve Korey 3 Ultra 26mm - [id number] Implanted:Qty: 1 on 12/24/2022 by Jesse Tanner MD at [facility] [place] [employer] [id number] 07/03/2023 [id number] / / Lead Pace [employer] 3830-69 - [id number] Implanted:Qty: 1 on 12/26/2022 by Keily Kelley IV, MD at [facility] [place] [employer] : [employer] [id number] 11/19/2024 [id number] 9 / [id number] / [id number] Lead Novus Bipolar 52cm - [id number] Implanted:Qty: 1 on 12/26/2022 by Keily Kelley IV, MD at [facility] [place] [employer] : [employer] [id number] 10/10/2024 5076- 52 / [id number] / [id number] Pacemaker Parul Xt Dr Kw[facility] - [id number] Implanted:Qty: 1 on 12/26/2022 by Keily Kelley IV, MD at [facility] [place] [employer] [id number] 05/17/2024 W1DR01 / [id number] / [id number] documented as of this encounter Advance Directives * Full Code (Latest Code Status on File) Date Activated Date Inactivated Comments 12/24/2022 11:13 AM 12/27/2022 10:05 PM This order reflects the patients wishes and were consensually agreed upon. Question Answer Comments Discussion of Advance Directives occurred with: Patient Care Teams Regional Vice President Surgical Sales Relationship Specialty Start Date End Date Vincent Slaughter MD [address] [place] [address] PCP - General Internal Medicine 05/22/21 documented as of this encounter
[2024-08-26 09:44] LABS: Hematocrit (blood only) 32.3 % (42.0-52.0); Hemoglobin 10.9 g/dl (14.0-18.0); Mean Corpuscular Hgb Conc 33.7 g/dL (32.0-36.0); Mean Corpuscular Volume 91.8 fL (80.0-100.0); Mean Platelet Volume 9.6 fL (9.4-12.4); Platelet Count 98 K/uL (130-400); RDW Coefficient of Variation 13.5 % (11.5-14.5); RDW Standard Deviation 45.6 fL (36.4-46.3); Red Blood Count 3.52 M/uL (4.70-6.10); White Blood Count 27.16 K/ul (4.8-10.8)
--- OUTSIDE RECORDS SUMMARY | 2024-08-26 09:44 | External Medical Summary ---
Author Name Unknown Address Unknown Organization [facility] [address] [place] [address] Laboratory Report Ordering Provider Test Date Status KAMI CHAPMAN 03/11/2024 08:41:50 Final 2 times a week for 3-6 weeks , then every 1-2 weeks. Observation Date Value Abnormality Reference (Units ) Status SYNC LEUKOCYTES IN BLOOD BY AUTOMATED COUNT 03/11/2024 08:41:50 29.29 Above high normal 4.00-10.80 (K/uL) Final Neutrophils/100 leukocytes in Blood by Manual count 03/11/2024 08:41:50 11.0 Below low normal 40.0-75.0 (%) Final Lymphocytes/100 leukocytes in Blood by Manual count 03/11/2024 08:41:50 85.0 Above high normal 18.0-42.0 (%) Final Monocytes/100 leukocytes in Blood by Manual count 03/11/2024 08:41:50 4.0 1.0-11.0 (%) Final Neutrophils [#/volume] in Blood by Manual count 03/11/2024 08:41:50 3.22 1.80-7.70 (K/uL) Final Lymphocytes [#/volume] in Blood by Manual count 03/11/2024 08:41:50 24.90 Above high normal 1.00-4.80 (K/uL) Final Monocytes [#/volume] in Blood by Manual count 03/11/2024 08:41:50 1.17 Above high normal 0.00-1.10 (K/uL) Final Variant lymphocytes [Presence] in Blood by Light microscopy 03/11/2024 08:41:50 Present Abnormal None Seen Final Smudge cells [Presence] in Blood by Light microscopy 03/11/2024 08:41:50 Present Abnormal None Seen Final Performing Location [facility] - [address] [place] [address]
--- OUTSIDE RECORDS SUMMARY | 2024-08-26 09:44 | External Medical Summary | Summary of Care ---
Author Name Unknown Organization [facility] Address [address] [place] [address] Phone [phone] Care Team Providers Care Tufter Hand Name Role Phone Vincent Slaughter MD Primary Care Provider + Reason for Referral * Precert (Within 10 days (routine)) - Authorized Specialty Diagnoses / Procedures Referred By Contac t Referred To Contact Cardiac Studies Diagnoses S/P TAVR (transcatheter aortic valve replacement) Procedures ECHO, COMPLETE (2D), TRANS-THORACIC Kathleen Sharma CRNP [address] [place] [address] Referral ID Status Reason Start Date Expiration Date V isits Requested Visits Authorized [id number] Authorized Precert 03/03/2024 999 999 Reason for Visit * Reason Comments Follow Up Encounter Details Date Type Department Care Team (Late st Contact Info) Description 03/03/2024 3:00 PM EDT Office Visit Cardiology, [facility] [address] [place] [address] Jesse Tanner MD [address] [place] [address] S/P TAVR (transcatheter aortic valve replacement)*; Nonrheumatic aortic valve stenosis; CHB (complete heart block) (HCC); Presence of cardiac pacemaker Allergies Active Allergy Reactions Criticality Noted Date Comments Heparin High 01/01/2023 ?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 30 mL 12 11/22/2022 Active [...] before bedtime. 60 Capsule 5 09/10/2023 Active Additional Information Patient not taking.Reported on 03/03/2024 Losartan Potassium 50 MG Oral Tablet (Cozaar)Indication [...] Active Additional Information Patient not taking.Reported on 03/03/2024 Trelegy Ellipta 200-62.5-25 MCG/ACT Aerosol Powder Breath Activated (Fluticasone-Umecl idinium-Vilanterol )Indications:Bronc hiectasis without complication (HCC),Chronic bronchitis, unspecified chronic bronchitis type (HCC),COPD (chronic obstructive pulmonary disease) with chronic bronchitis (HCC),ILD (interstitial lung disease) (HCC) Inhale 1 Puff by mouth in the morning. 60 Blister Dosing Unit 3 03/01/2024 Active Additional Information Patient not taking.Reported on 03/03/2024 Hospital, Clinic, or Other Facility Administered Medication Ordered Dose Route Frequency Start Date End Date Status Albuterol Sulfate (Proventil) (2.5 MG/3ML) 0.083% inhalation solution 2.5 mgIndications:ILD (interstitial lung disease) (HCC),Hypersensitivity pneumonitis (HCC),COPD, group B, by GOLD 2017 classification (HCC),Dyspnea on exertion,Chronic cough 2.5 mg NEBULIZER ONCE PRN 01/07/2024 01/06/2025 Ac tive documented as of this encounter (statuses as of 03/03/2024) Active Problems Problem Noted Date Diagnosed Date [...] as of this encounter (statuses as of 03/03/2024) Resolved Problems Problem Noted Date Diagnosed Date [...] as of this encounter (statuses as of 03/03/2024) Immunizations Name Administration Dates Next Due Pneumococcal [...] as of this encounter Progress Notes * Kathleen Sharma CRNP - 03/03/2024 3:00 PM EDT Valve Clinic Cardiology Outpatient Clinic Note 03/03/2024 Patient disposition: 1 year post TAVR Primary Cold Work Operator: Dr. 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 Patient carries a history of severe aortic stenosis and underwent TAVR with Dr. Tanner on 12/25/2023. Postop course was complicated by complete heart block and underwent dual-chamber permanent pacemaker placement on 12/26/2022. Last echo dated 03/03/2023 (one-month post TAVR) showed a preserved LVEF of 55- 59% without wall motion abnormalities. TAVR gradients were stable. Patient is due for an upcoming echo. Today the patient presents with his per his usual routine. From a cardiac standpoint he is feeling well. Notes a significant improvement in his overall functional capacity over the last year. Heis very happy with how he is feeling. He does continue to have chronic dyspnea with exertion unchanged over the last several years. He denies any exertional chest pain but will occasionally feel muscular discomfort when he wakes up in the morning. Notes if he stretches and moves around the discomfort goes away. Denies any palpitations. No lightheadedness or dizziness. No orthopnea, PND, or increased lower extremity edema. No fever, chills, cough, hematochezia, melena, or hemoptysis. States he is compliant with all medications offers no side effects. Current Outpatient Medications Medication Sig Dispense Refill cetirizine (ZYRTEC ALLERGY) 10 MG Tablet Take 1 Tablet by mouth in the morning and 1 Tablet in the evening. aspirin 81 MG chewable tablet Take 1 [...] as needed for Wheezing. 18 g 5 oxyCODONE-Acetaminophen 5-325 MG Oral Tablet (Percocet) Take 1 Tablet by mouth every 6 hours as needed for Pain, Breakthrough. 1 TABLET EVERY 6 HOURS NEEDED 60 Tablet 0 Azelastine HCl 0.1 % Nasal Solution (Astelin) Administer 1 [place] into nostril in the morning and 1 [place] before bedtime. 30 mL 12 Allopurinol 100 MG Oral Tablet (Zyloprim) Take 1 Tablet by mouth in the morning. 30 Tablet 11 Colchicine 0.6 MG Oral Tablet Take 1 Tablet by mouth in the morning. 30 Tablet 5 Metoprolol Succinate ER 25 MG Oral Tablet Extended Release 24 Hour (toPROL XL) TAKE 1 TABLET BY MOUTH TWICE DAILY every morning and before bedtime 180 Tablet 1 Losartan Potassium 50 MG Oral Tablet (Cozaar) TAKE 1 TABLET BY MOUTH EVERY MORNING 30 Tablet 5 Chlorambucil 2 MG Oral Tablet (Leukeran) Take 1 Tablet by mouth in the morning. Take medication on an empty stomach.. 30 Tablet 5 diphenhydrAMINE HCl 25 MG Oral Tablet Take 2 Tablets by mouth in the morning and 2 Tablets at noon and 2 Tablets before bedtime. As needed. About every 2 days.. (Patient not taking: Reported on 03/03/2024) 30 Tab Spacer/Aero-Holding Chambers Device Use with inhaler as directed . 1 Each 0 Azithromycin 500 MG Oral Tablet (Zithromax) Take 1 tablet 30-60 mg prior to any dental work. 1 Tablet 4 Triamcinolone Acetonide 0.1 % External Ointment (Aristocort) APPLY TOPICALLY TO AFFECTED AREA TWICEA DAY FOR 14 DAYS 15 g 0 Doxycycline Monohydrate 100 MG Oral Capsule Take 1 Capsule by mouth in the morning and 1 Capsule before bedtime. (Patient not taking: Reported on 03/03/2024) 60 Capsule 5 methylPREDNISolone 4 MG Oral Tablet Therapy Pack (Medrol Dosepack) follow package directions (Patient not taking: Reported on 03/03/2024) 21 Tablet 0 Trelegy Ellipta 200-62.5-25 MCG/ACT Aerosol Powder Breath Activated (Okfuryaqccz-Oecnkxyyutuk-Qtxdgvebax) Inhale 1 Puff by mouth in the morning. 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 Calculus of kidney 06/01/2001 Chronic lymphocytic leukemia (HCC) 02/25/2005 Dyslipidemia, goal to be determined History of 2019 novel coronavirus disease (COVID-19) 05/07/2022 HTN, goal to be determined Hypertension, chronic,unspecified HYPERCALCEMIA Hyperparathyroidism Other chronic sinusitis 03/27/2005 Pneumonia Primary osteoarthritis involving multiple joints SLEEP APNEA NOS 06/01/2001 Past Surgical History: Procedure Laterality Date COLONOSCOPY 09/10/2004 Normal repeat 3-5 years COLONOSCOPY, DIAGNOSTIC (RECTUM) 05/28/2010 normal colon exam repeat in 5 years COLONOSCOPY, DIAGNOSTIC (RECTUM) 09/27/2014 normal/[facility] COLONOSCOPY, SURGICAL 02/2000 cloacogenic polyp: removed by Dr Zuñiga CORONARY ANGIOGRAPHY W/LEFT HEART CATH Right 11/28/2022 CORONARY ANGIOGRAPHY W/LEFT HEART CATH performed by Adolfo Pierce DO at [facility] EXPLORE PARATHYROID GLANDS 1998 Parathyroidectomy FRACTURE NOS 2002 Fractures L leg/bone graft INJECTION OF EYE DRUG Right 07/09/2016 # 1 Eylea OD, INJECTION OF EYE DRUG Right 09/19/2016 # 2 Eylea OD, INJECTION OF EYE DRUG Right 11/07/2016 # 1 Triesence OD, Dr. Jc INSERT/REPLACE PACEMAKER,ATRIAL/VENTRICULAR Left 12/26/2022 NEW DDD PACEMAKER IMPLANT performed by Keily Kelley IV, MD at [facility] LUMBAR SPINE FUSION, POST INTERBODY Dr. Estrada lower back MISCELLANEOUS ORDER ([facility] ONLY) Right 07/09/2016 Eylea OD Consent signed, MISCELLANEOUS ORDER ([facility] ONLY) Right 11/07/2016 Triesence OD Consent Signed, Dr. Babita FRANKLIN, 1ST STAGE; FACE, HANDS, FEET, NERVE "one left side of throat and two on my head" OTHER 06/2005 Dr. Reeder; nasal surgery OTHER 11/2006 left shoulder arthroscopy OTHER (INFORMATION) ACT 112 SIGNED 12/04/22 DR. JC REMOVAL OF APPENDIX 05/29/2010 Appendectomy- [facility] 05/29/2010 REPLACE AORTIC VALVE, PERCUTANEOUS FEMORAL N/A 12/24/2022 REPLACE AORTIC VALVE, PERCUTANEOUS FEMORAL performed by Jesse Tanner MD at [facility] REPLACE AORTIC VALVE, PERCUTANEOUS FEMORAL N/A 12/24/2022 REPLACE AORTIC VALVE, PERCUTANEOUS FEMORAL performed by Alin Be MD at [facility] TREAT LOCALIZED RETINA LESION Right 12/12/2016 Focal Laser procedure of the RIGHT eye; Dr. 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 All others negative, other than those noted in HPI. Physical Exam There were no vitals taken for this visit. General: No acute distress. A+Ox3. HEENT: Normocephalic. Atraumatic. Conjunctiva and sclera clear. NECK: No carotid bruits. No JVD. Carotid upstrokes are brisk. Heart: RRR. +S1/S2 +2/6 systolic murmur. Lungs: Clear to auscultation. No wheezes, rhonchi, rales. Abdomen: Normal bowel sounds. Soft. Nontender. No masses or organomegaly. No abdominal bruits. Extremities: No edema. No clubbing or cyanosis. Groin sites healed. Pulses: radial=2/4, posterior tibial=2/4, dorsalis pedis = 2/4. NEURO: No focal deficits. PSYCH: Normal. Lab data/imaging study review: ECHO- Post TAVR 1 month The examination is adequate to evaluate the referral indication. The left ventricular cavity size is normal. The LV wall thickness is moderately increased (concentric). The septal motion is abnormal consistent with right ventricular pacemaker. The regional left ventricular wall motion is otherwise normal. The qualitative LV ejection fraction is 55-59% (normal). The patient is status post TAVR with Korey type prosthetic valve. The aortic valve prosthesis systolic gradients are normal for this type prosthesis. The mean systolic gradient through the TAVR is 16 mmHg. The peak aortic valve velocity throught the TAVR is 2.99 m/sec. Trivial paravalvular aortic valve prosthesis regurgitation is present. There is mild mitral annular calcification. Echo 12/25/2022- POD 1 TAVR The examination is adequate to evaluate the referral indication. The qualitative LV ejection fraction is 60-64% (normal). No LV segmental wall motion abnormalities. The right ventricular systolic function is qualitatively normal. The patient is status post TAVR with Korey type prosthetic valve. Aortic valve prosthesis stenosis is absent. Significant aortic valve prosthesis regurgitation is absent. A small anterior loculated pericardial effusion is present. Cardiac tamponade is absent. Echo 09/06/2022 The qualitative LV ejection fraction is 55-59% (normal). The LV wall thickness is moderately increased (concentric). The aortic valve has three leaflets. The aortic valve is severely calcified. Moderate to borderline severe aortic valve stenosis. Mild mitral regurgitation is present. The aortic root is borderline enlarged, 3.9 cm. The ascending aorta is mildly enlarged, 4.3 cm. There is a small circumferential pericardial effusion with a moderate volume of fluid in the anterior and left lateral position. Moderate organization/fibrinous strands. Cardiac tamponade is absent. Normal IVC size and collapsability with sniff indicates a normal right atrial pressure of 3 mmHg. Compared to study dated August 30, 2021: aortic valve systolic gradient has increased, the aortic root, and ascending aortic diameters have increased, a pericardial effusion is now present without evidence of tamponade. Ao V2 max: : 380.9 cm/sec Ao mean P.6 mmHg JON(I,D): 1.1 cm2 Impression/Plan: 1. Nonrheumatic aortic valve stenosis 2. 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 Patient has full dentures. Antibiotics are needed for all dental work: Azithromycin 500 mg (1 tablet) 30-60 mg prior to any dental work. 2. ASA 81 mg daily continued indefinitely 4. Repeat echo to reassess TAVR gradients (1 year post TAVR) 4. Will defer care back to the primary cardiology team. Valve clinic follow-up PRN. 3. CHB (complete heart block) (HCC) 4. Presence of cardiac pacemaker -TAVR course complicated by CHB, s/p dual chamber pacemaker placement (Medtronic [id number]), 12/26/2022y Dr. Kelley -Appropriate pacemaker function noted on last device interrogation dated 01/2024. 1. Continue to follow with device Clinic as scheduled. The patient agrees to the above plan and will call with additional questions or concerns. ER with all emergencies advised. Follow-up: Return if symptoms worsen or fail to improve. | Check-out note: Schedule echo within 4 weeks. PRN follow up in valve clinic 6 mos with general cardiology/JJB I spent a total of 40 minutes on the date of service in preparation, delivery, and documentation ofthe care provided to Luis M Tirado excluding any time spent in the performance of separately billed services. SCOTT Herring, Department of Cardiology This chart was completed in part utilizing [employer] Speech Voice Recognition Software. Grammatical errors, random [...] documented in this encounter Nursing Notes * Arvind Patterson RN - 03/03/2024 2:55 PM EDT Examination Room: room 12 Name: Luis M Tirado Date of : (1940). Reason for Visit: follow up Interim Hospitalization(s): denies Problems/Concerns: denies Chest Pain/SOB: gets chest pain and discomfort [facility] Discussed: Not applicable [facility] is a way you can talk to your provider online through e-mail. Would you like to sign up? I can activate it for you? NO INTERNET ACCESS Patient was instructed to not get up [...] Care Team (Late st Contact Info) Description 03/11/2024 11:45 AM EDT Office Visit Dermatology [facility] [address] [place] [address] Vincent Buck MD [address] [facility] [place] [address] 03/12/2024 9:00 AM EDT Pharmacy Pharmacy Hematology Oncology [facility] [address] [place] [address] [facility] Hem/Onc [address] [place] [address] 03/18/2024 1:00 PM EDT Cardiac Studies Cardiac Studies, [facility] [address] [place] [address] 04/26/2024 12:20 PM EDT Office Visit Pulmonary Medicine, [facility] [address] [place] [address] Tomi Hayes DO [address] [place] [address] 05/05/2024 12:40 PM EDT Office Visit General Internal Medicine [facility] [address] [place] [address] Nazario Whaley, DO [address] [place] [address] 05/28/2024 1:00 PM EDT Office Visit Dermatology [facility] [address] [facility] [place] [address] Vincent Buck MD [address] [facility] [place] [address] 06/02/2024 9:30 AM EDT Office Visit Hematology/Oncology [facility] [address] [facility] [place] [id number] Lucien Jamil MD [address] [facility] [place], [place] [address] 09/27/2024 3:30 PM EST Office Visit Cardiology, [facility] [address] [facility] [place] [address] Cuauhtemoc Jo DO [address] [place] [address] 12/03/2024 11:15 AM EDT Office Visit Otolaryngology [facility] [address] [place] [address] Susanne Thrasher MD [address] [place] [address] Scheduled Orders Name Type Priority Associated Diagnoses Orde r Schedule EKG COMPLETE (TRACING AND INTERP) EKG Routine S/P TAVR (transcatheter aortic valve replacement) Ordered: 03/03/2024 ECHO, COMPLETE (2D), TRANS-THORACIC Echocardiology Routine S/P TAVR (transcatheter aortic valve replacement) Expected: 03/03/2024 (Approximate), Expires: 04/03/2026 Health Maintenance Due Date Last Done Comments COVID-19 Vaccine (#1) 02/07/1945 Zoster Vaccines (1 of 2) 02/07/1959 CKD PHOS USE SMARTSET 72489 11/29/2023 04/2 02/2023, 11/07/2022, 10/16/2021, Additional history exists Influenza Vaccine (FLU shot) (#1) 2024 Albumin/Creatinine Ratio 05/22/2024 023, 05/09/2022, 09/17/1999 Depression Screening 05/22/2024 05/22/2023 GFR 08/28/2024 02/26/2024, 07/0 03/2024, 01/23/2024, Additional history exists DTaP,Tdap,and Td Vaccines (4 - Td or Tdap) 12/01/2024 12/01/2014, 12/01/2014, 12/01/2014 CKD HGB USE SMARTSET [id number] 02/25/202502/25, 02/26/2024, 02/09/2024, Additional history exists O2 ASSESSMENT COMPLETED IN PAST YEAR FOR COPD 03/01/2025 03/01/2024 Pneumococcal Vaccine: 65+ Years Completed 07/01/2017, 06/26/2016, [...] this encounter Medical Devices Implanted Type Area Fiberglass 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 Device Identifier Shelf Expiration Date Model / Serial / Lot Valve Korey 3 Ultra 26mm - [id number] Implanted:Qty: 1 on 12/24/2022 by Jesse Tanner MD at [facility] [employer] [id number] 07/03/2023 [id number] / / Lead Pace Selectsecure 3830-69 - [id number] Implanted:Qty: 1 on 12/26/2022 by Keily Kelley IV, MD at [facility] [employer] : ALYSON [id number] 11/19/2024 [id number] / [id number] / [id number] Lead Novus Bipolar 52cm - [id number] Implanted:Qty: 1 on 12/26/2022 by Keily Kelley IV, MD at [facility] [employer] : CRM [id number] 10/10/2024 [id number] / [id number] / [id number] Pacemaker Parul Xt Dr Orosco [facility] - [id number] Implanted:Qty: 1 on 12/26/2022 by Keily Kelley IV, MD at [facility] [employer] [id number] 05/17/2024 [id number] / [id number] / [id number] documented as of this encounter Visit Diagnoses Diagnosis S/P TAVR (transcatheter aortic valve replacement)- Primary Heart valve replaced by other means Nonrheumatic aortic valve stenosis Aortic valve disorders CHB (complete heart block) (HCC) Atrioventricular block, complete Presence of cardiac pacemaker Cardiac pacemaker in situ documented in this encounter Advance Directives * Full Code (Latest Code Status on File) Date Activated Date Inactivated Comments 12/24/2022 11:13 AM 12/27/2022 10:05 PM This order reflects the patients wishes and were consensually agreed upon. Question Answer Comments Discussion of Advance Directives occurred with: Patient Care Teams Tufter Hand Relationship Specialty Start Date End Date Vincent Slaughter MD [address] [place] [place] [address] PCP - General Internal Medicine 05/22/21 documented as of this encounter
--- OUTSIDE RECORDS SUMMARY | 2024-08-26 09:44 | External Medical Summary | Summary of Care ---
Author Name Unknown Organization [facility] Address [address] [place] [address] Phone [phone] Care Team Providers Care Butcher Name Role Phone Vincent Slaughter MD Primary Care Provider + Reason for Visit * Reason Comments Other Skin lesion on poste rior scalp. Growing. H/o numerous NMSC. 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 30 mL 12 11/22/2022 Active [...] Activated (Fluticasone-Umecli dinium-Vilanterol)I ndications:Bronchie ctasis without complication ([facility]),Chronic bronchitis, unspecified chronic bronchitis type ([facility]),COPD (chronic obstructive pulmonary disease) with chronic bronchitis ([facility]),ILD (interstitial lung disease) ([facility]) Inhale 1 Puff by mouth in the morning. 60 Blister Dosing Unit 3 03/01/2024 Active Hospital, Clinic, or Other Facility Administered Medication Ordered Dose Route Frequency Start Date End Date Status Albuterol Sulfate (Proventil) (2.5 MG/3ML) 0.083% inhalation solution 2.5 mgIndications:ILD (interstitial lung disease) ([facility]),Hypersensitivity pneumonitis ([facility]),COPD, group B, by GOLD 2017 classification ([facility]),Dyspnea on exertion,Chronic cough 2.5 mg NEBULIZER ONCE PRN 01/07/2024 01/06/2025 Ac tive documented as of this encounter (statuses as of 03/16/2024) Active Problems Problem Noted Date Diagnosed Date [...] Mri 01/14/2007 Mri done at [facility] Statin intolerance 07/27/2007 Overview: Hepatitis with Zocor Other sleep apnea 06/01/2001 documented as of this encounter (statuses as of 03/16/2024) Resolved Problems Problem Noted Date Diagnosed Date [...] Mri 01/14/2007 Mri done at [facility] Cerebrovascular event, ill-d efined, within last 8 weeks 02/23/2007 11/17/2008 Overview: Modified per CVA protocol #8 Chronic rhinitis 09/16/2005 12/31/2017 Deviated nasal septum 03/27/20052017 Acquired deformity of nose 03/27/2005 1 08/31/2016 NASAL & SINUS DIS NEC 03/27/20052016 Other chronic sinusitis 03/27/200508/2018 CHRONIC LYMPHOID LEUKEMIA [facility] MENTION OF REMISSION 02/25/2005 04/14/2018 ADVANCE [...] as of this encounter (statuses as of 03/16/2024) Immunizations Name Administration Dates Next Due Pneumococcal [...] as of this encounter Progress Notes * Shabana Price MD - 03/16/2024 4:21 PM EDT I have reviewed the relevant notes and photographs taken by Lilly Carmichael PA-C. I have reviewed and agree with the assessment and plan. Shabana Price MD 03/16/2024 4:21 PM * Lilly Carmichael PA-C - 03/16/2024 11:08 AM EDT SUBJECTIVE: CC: Skin lesion on posterior scalp. Growing. H/o numerous NMSC. HPI: Luis M Tirado is a 84 year old male who is an established patient seen for skin lesion on posterior scalp. Patient last visit on 10/2023-Dr. Buck. Spot on posterior scalp. Present for months. Growing. Catches on wash cloth Several rough spots on face. Spot on R ear but he reports he has that healing well. 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 30 mL 12 Azithromycin 500 [...] morning and before bedtime 180 Tablet 1 Triamcinolone Acetonide 0.1 % External Ointment (Aristocort) [...] Ellipta 200-62.5-25 MCG/ACT Aerosol Powder Breath Activated (Wumwpyslmsq-Tawmqnqankdr-Egbhevjjfh) Inhale 1 Puff by mouth in the morning. 60 Blister Dosing Unit 3 Current Facility-Administered Medications Medication Dose Route Frequency Provider Last Rate Last Admin Albuterol Sulfate (Proventil) (2.5 MG/3ML) 0.083% inhalation solution 2.5 mg 2.5 mg Nebulizer Once PRN 2.5 mg at 02/23/24 1014 ALLERG Y: Heparin, Penicillins, Levofloxacin, and Zocor [simvastatin] OBJECTIVE: GEN: Healthy, alert, no distress, appears oriented, pleasant, and cooperative. PSYCH: Appropriate mood and affect, alert SKIN: Detailed exam of scalp, face was completed and are within normal limits with the following exceptions: 1. A: 8 mm ribera keratotic papule on posterior scalp. 2. B: 1.8 cm pink papule on R ear. 3. Raised erythematous scaly circumscribed areas with ribera/white keratotic scale on face ASSESS MENT/PLAN: 1. Favor ISK vs HAK vs SCC -Discussed concern for potential malignancy and recommendation of biopsy. Patient agreeable. Shave of the lesion noted above to remove and confirm diagnosis. The procedure, risks, benefits, alternatives and expected outcomes were discussed with the patient and consent was obtained. Time out called. Patient identified, procedure verified, site identified and verified. Patient and staff present in agreement. Area prepped with alcohol and anesthetized using 0.5% lidocaine with epinephrine. Shave of lesion performed. 20% AlCl and bandaging applied. Specimen sent to pathology. Patient instructed in routine post-op care. The lesion was curetted for cure. Size of lesion: 8 mm Size of wound after currettage: 1.4 cm 2. Favor KA/SCC -Discussed concern for potential malignancy and recommendation of biopsy. Patient agreeable. -Biopsy of the lesion noted above to establish and confirm diagnosis. Biopsy by tangential shave biopsy was recommended which the patient was agreeable to. The procedure, risks, benefits, indications, alternatives, and complications were discussed with the patient and informed consent was obtained.Specifically, the expectation of a permanent scar and risk of possible infection were explained to the patient and understood. Time out called. Patient identified, procedure verified, site identifiedand verified. Patient and staff present in agreement. Area prepped with alcohol and anesthetized with 2.5 mL of 0.5% lidocaine with epinephrine. Biopsy via horizontal technique was performed. Hemostasis was obtained with aluminum chloride and electrocautery. Petrolatum and bandage were applied. Thepatient tolerated the procedure well without complications and with minimal blood loss. Patient instructed in routine post-op care. Specimen(s) sent to pathology. We will call with biopsy results andarrange appropriate follow-up care as indicated. 3. Actinic Keratoses -Educated on premalignant potential and small risk of developing into a SCC -Discussed treatment options including cryotherapy. Patient prefers cryotherapy. -Cryosurgery procedure, risks and benefits explained to the patient. Specifically, side effects including blistering, hyperpigmentation, hypopigmentation, scar or pain at procedure site was discussedand patient verbalized understanding. Consent was obtained. Patient, site and procedure verified. Cryotherapy was performed with Liquid Nitrogen via cryo spray unit to 6 lesions. Location noted in physical exam. Post op course explained. -Counseled on importance of sun protection with sunscreen of at least SPF 30 and protective clothing. -Discussed importance of yearly skin checks and to contact our office if he notices any new or changes skin lesion. Patient with today. Follow-up: Keep FU with Dr. Buck in Oct Photos taken 12-16, patient consented to photos taken. Contact patient via cell phone Ok to leave results on message: No Patient Phone Numbers Applicable photos (if any) and chart reviewed by Dr. Shabana Price The patient was encouraged to contact me with any further questions or concerns. Lilly Carmichael PA-C 03/16/2024 11:08 AM documented in this encounter Plan of Treatment Upcoming Encounters Date Type Department Care Team (Late st Contact Info) Description 03/18/2024 1:00 PM EDT Cardiac Studies Cardiac Studies, [facility] [address] [facility] [place] [address] 03/26/2024 9:00 AM EDT Pharmacy Pharmacy Hematology Oncology [facility] [address] [place] [address] [facility] Hem/Onc [address] [place] [address] 04/26/2024 12:20 PM EDT Office Visit Pulmonary Medicine, [facility] [address] [facility] [place] [address] Tomi Hayes DO [address] [place] [address] 05/05/2024 12:40 PM EDT Office Visit General Internal Medicine [facility] [address] [place] [address] Nazario Whaley DO [address] [place] [address] 05/28/2024 1:00 PM EDT Office Visit Dermatology [facility] [address] [facility] [place] [address] Vincent Buck MD [address] [facility] [place] [address] 06/02/2024 9:30 AM EDT Office Visit Hematology/Oncology [facility] [address] [place] [phone] Lucien Jamil MD [address] [facility] [place] [address] 09/27/2024 3:30 PM EST Office Visit Cardiology, [facility] [address] [facility] [place] [address] Cuauhtemoc Jo, [address] [facility] [place] [address] 12/03/2024 11:15 AM EDT Office Visit Otolaryngology [facility] [address] [place] [address] Susanne Thrasher MD [address] [facility] [place] [address] Pending Results Name Type Priority Associated Diagnoses Date /Time SURGICAL PATHOLOGY Pathology Routine Skin neoplasm 03/16/2024 11:20 AM EDT Health Maintenance Due Date Last Done Comments COVID-19 Vaccine (#1) 02/07/1945 Zoster Vaccines (1 of 2) 02/07/1959 Adult Wellness Visit 02/07/2006 CKD PHOS USE SMARTSET 10150 11/29/2023/2 02/2023, 11/07/2022, 10/16/2021, Additional history exists Influenza Vaccine (FLU shot) (#1) 2024 Albumin/Creatinine Ratio 05/22/2024 023, 05/09/2022, 09/17/1999 Depression Screening 05/22/2024 05/22/2023 GFR 09/11/2024 03/11/2024, 02/02, 02/09/2024, Additional history exists DTaP,Tdap,and Td Vaccines (4 - Td or Tdap) 12/01/2024 12/01/2014, 12/01/2014, 12/01/2014 O2 ASSESSMENT COMPLETED IN PAST YEAR FOR COPD 03/01/2025 03/01/2024 CKD HGB USE SMARTSET 15549 03/11/202503/11, 03/11/2024, 02/26/2024, Additional history exists Pneumococcal [...] this encounter Medical Devices Implanted Type Area Crusher Feeder Device Identifier Shelf Expiration Date Model / Serial / Lot Valve Korey 3 Ultra 26mm - [id number] Implanted:Qty: 1 on 12/24/2022 by Jesse Tanner MD at [facility] [employer] [id number] 07/03/2023 [id number] / / Lead Pace Selectsecure 3830-69 - [id number] Implanted:Qty: 1 on 12/26/2022 by Keily Kelley IV, MD at [facility] [employer] : CRM [id number] 11/19/2024 [id number] / [id number] / [id number] Lead Novus Bipolar 52cm - [id number] Implanted:Qty: 1 on 12/26/2022 by Keily Kelley IV, MD at [facility] [employer] : CRM [id number] 10/10/2024 5076- 52 / [id number] / [id number] Pacemaker Sycamore Xt Dr Mri ls - [id number] Implanted:Qty: 1 on 12/26/2022 by Keily Kelley IV, MD at [facility] [employer] [id number] 05/17/2024 [id number] / [id number] / [id number] documented as of this encounter Procedures Procedure [...] interpreted or resulted by a [facility] or [facility] contracted radiologist. Lilly Carmichael PA-C RADIOLO GY (RAD GENERAL) documented in this encounter Visit Diagnoses Diagnosis Skin neoplasm- Primary Neoplasm of unspecified nature of bone, soft tissue, and skin AK (actinic keratosis) Actinic keratosis documented in this encounter Advance Directives * Full Code (Latest Code Status on File) Date Activated Date Inactivated Comments 12/24/2022 11:13 AM 12/27/2022 10:05 PM This order reflects the patients wishes and were consensually agreed upon. Question Answer Comments Discussion of Advance Directives occurred with: Patient Care Teams Butcher Relationship Specialty Start Date End Date Vincent Slaughter MD [address] [place] [address] [place] [address] PCP - General Internal Medicine 05/22/21 documented as of this encounter
--- OUTSIDE RECORDS SUMMARY | 2024-08-26 09:44 | External Medical Summary ---
Author Name Unknown Address Unknown Organization K1F:[facility] - [address] [place] [address] Laboratory Report Ordering Provider Test Date Status KAMI CHAPMAN 03/11/2024 08:41:50 Final 2 times a week for 3-6 weeks , then every 1-2 weeks. Observation Date Value Abnormality Reference (Units ) Status WBC, Total 03/11/2024 08:41:50 29.29 Above high normal 4.00-10.80 (K/uL) Final RBC 03/11/2024 08:41:50 3.60 4.50-5.25 (M/uL) Final Hemoglobin 03/11/2024 08:41:50 11.5 Below low normal 14.0-16.8 (g/dL) Final HCT 03/11/2024 08:41:50 35.9 Below low normal 40.0-48.4 (%) Final MCV 03/11/2024 08:41:50 99.7 82.0-99.5 (fL) Final MCH 03/11/2024 08:41:50 31.9 27.0-34.0 (pg) Final MCHC 03/11/2024 08:41:50 32.0 32.0-36.0 (g/dL) Final RDW 03/11/2024 08:41:50 14.9 11.5-15.5 (%) Final Platelets 03/11/2024 08:41:50 85 Below low normal 140-400 (K/uL) Final MPV 03/11/2024 08:41:50 9.0 6.6-11.1 (fL) Final Nucleated erythrocytes/100 leukocytes [Ratio] in Blood by Automated count 03/11/2024 08:41:50 0 <=0 (/100 WBCs) Final Performing Location [facility] - [address] [place] [address]
--- OUTSIDE RECORDS SUMMARY | 2024-08-26 09:44 | External Medical Summary ---
Author Name Unknown Address Unknown Organization K1F:[facility] [address] [place] [address] Laboratory Report Ordering Provider Test Date Status KAMI CHAPMAN 03/11/2024 08:41:50 Final Observation Date Value Abnormality Reference (Units ) Status BUN 03/11/2024 08:41:50 17 6-20 (mg/dL) Final Creatinine 03/11/2024 08:41:50 1.2 0.6-1.2 (mg/dL) Final Glomerular filtration rate/1.73 sq M.predicted [Volume Rate/Area] in Serum, Plasma or Blood by Creatinine-based formula (CKD-EPI) 03/11/2024 08:41:50 58 Below low normal >=60 (mL/min) Final eGFR is calculated based on the CKD-EPI 2020 equation. Sodium 03/11/2024 08:41:50 143 135-146 (m mol/L) Final Potassium 03/11/2024 08:41:50 4.6 3.5-5.1 (m mol/L) Final Cl 03/11/2024 08:41:50 108 Above high normal 98 -107 (mmol/L) Final CO2 03/11/2024 08:41:50 27 22-32 (mmo l/L) Final Anion gap 03/11/2024 08:41:50 8 7-15 (mmol /L) Final Glucose 03/11/2024 08:41:50 83 70-120 (mg /dL) Final Albumin 03/11/2024 08:41:50 4.6 3.8-5.0 (g /dL) Final AST (Aspartate aminotransferase) 03/11/2024 08:41:50 26 10-50 (U/L) Fin al Alk Phos 03/11/2024 08:41:50 73 35-130 (U/ L) Final Bilirubin, Total 03/11/2024 08:41:50 0.4 <=1 .2 (mg/dL) Final Calcium 03/11/2024 08:41:50 9.1 8.4-10.2 ( mg/dL) Final Protein 03/11/2024 08:41:50 6.4 6.0-8.3 (g /dL) Final ALT (Alanine aminotransferase) 03/11/2024 08:41:50 10 10-50 (U/L) Tyler rosa Performing Location [facility] [place] [address]
--- OUTSIDE RECORDS SUMMARY | 2024-08-26 09:44 | External Medical Summary | Summary of Care ---
Author Name Unknown Organization [facility] Address [address] [place] [address] Phone [phone] Care Team Providers Care Macerator Operator Name Role Phone Vincent Slaughter MD Primary Care Provider + Reason for Visit * Reason Comments Other Skin lesion on poste rior scalp. Growing. H/o numerous NMSC. Encounter Details Date Type Department Care Team (Late st Contact Info) Description 03/16/2024 11:40 AM EDT Office Visit Dermatology, Karuna Mirza [address] [place] [address] Lilly Carmichael PA-C [address] [place] [address] Skin neoplasm*; AK (actinic keratosis) Allergies Active [...] 0.1 % Nasal Solution (Astelin) Administer 1 [place] into nostril in the morning and 1 [place] before bedtime. 30 mL 12 11/22/2022 Active [...] Activated (Fluticasone-Umecli dinium-Vilanterol)I ndications:Bronchie ctasis without complication ([facility]),Chronic bronchitis, unspecified chronic bronchitis type ([facility]),COPD (chronic obstructive pulmonary disease) with chronic bronchitis ([facility]),ILD (interstitial lung disease) ([facility]) Inhale 1 Puff by mouth in the [...] hemisphere infarct. Mri 01/14/2007 Mri done at [facility] Statin intolerance 07/27/2007 Overview: Hepatitis [...] hemisphere infarct. Mri 01/14/2007 Mri done at [facility] Cerebrovascular event, ill-d efined, within last 8 weeks 02/23/2007 11/17/2008 Overview: Modified per CVA protocol #8 Chronic rhinitis 09/16/2005 12/31/2017 Deviated nasal septum 03/27/20052017 Acquired deformity of nose 03/27/2005 1 08/31/2016 NASAL & SINUS DIS NEC 03/27/20052016 Other chronic sinusitis 03/27/200508/2018 CHRONIC LYMPHOID LEUKEMIA [facility] MENTION OF REMISSION 02/25/2005 04/14/2018 ADVANCE [...] as of this encounter Progress Notes * Lilly Carmichael PA-C - 03/16/2024 11:08 [...] 0.1 % Nasal Solution (Astelin) Administer 1 [place] into nostril in the morning and 1 [place] before bedtime. 30 mL 12 Azithromycin 500 [...] Ellipta 200-62.5-25 MCG/ACT Aerosol Powder Breath Activated (Jwelwcudnqv-Vkkxlqpvswvm-Rcvvjwyofd) Inhale 1 Puff by mouth in the [...] with Dr. Buck in Oct Photos taken 5-15, patient consented to photos taken. Contact patient [...] 1:00 PM EDT Cardiac Studies Card[facility] Studies, [facility] [address] 03/26/2024 9:00 AM EDT Pharmacy Pharmacy Hematology Oncology [facility] [address] [place] [address] [facility] Hem/Onc [address] [place] [address] 04/26/2024 12:20 PM EDT Office Visit Pulmonary Medicine, [facility] [place] [address] Tomi Hayes DO [address] [place] [address] 05/05/2024 12:40 PM EDT Office Visit General Internal Medicine [facility] 200 [place] [address] Nazario Whaley, DO [address] [place] [address] 05/28/2024 1:00 PM EDT Office Visit Dermatology [facility] 200 [facility] [place], [place] [address] Vincent Buck MD [address] [place] [address] 06/02/2024 9:30 AM EDT Office Visit Hematology/Oncology [facility] [address] [place] [phone] Lucien Jamil MD [address] [place] [address] 09/27/2024 3:30 PM EST Office Visit Cardiology, [facility] [place] [address] Cuauhtemoc Jo DO [address] [place] [address] 12/03/2024 11:15 AM EDT Office Visit Otolaryngology [facility] [address] [place] [address] Susanne Thrasher MD [address] [place] [address] Pending Results Name Type Priority Associated Diagnoses Date /Time SURGICAL PATHOLOGY Pathology Routine Skin neoplasm 03/16/2024 11:20 AM EDT Health Maintenance Due Date Last Done Comments COVID-19 Vaccine (#1) 02/07/1945 Zoster Vaccines (1 of 2) 02[birth year]07/1959 Adult Wellness Visit 02/07/2006 CKD PHOS USE SMARTSET 67627 11/29/202311/03, 11/07/2022, 10/16/2021, Additional history exists Influenza Vaccine (FLU shot) (#1) 2024 Albumin/Creatinine Ratio 05/22/2024 023, 05/09/2022, 09/17/1999 Depression Screening 05/22/2024 05/22/2023 GFR 09/11/2024 03/11/2024, 02/02, 02/09/2024, Additional history exists DTaP,Tdap,and Td Vaccines (4 - Td or Tdap) 12/01/2024 12/01/2014, 12/01/2014, 12/01/2014 O2 ASSESSMENT COMPLETED IN PAST YEAR FOR COPD 03/01/2025 03/01/2024 CKD HGB USE SMARTSET 37055 03/11/202503/11, 03/11/2024, 02/26/2024, Additional history exists Pneumococcal [...] this encounter Medical Devices Implanted Type Area Mechanical Engineering Teacher Device Identifier Shelf Expiration Date Model / Serial / Lot Valve Korey 3 Ultra 26mm - [id number] Implanted:Qty: 1 on 12/24/2022 by Jesse Tanner MD at [facility] [place] [employer] [id number] 07/03/2023 [id number] / / Lead Pace [employer]secure 3830-69 - [id number] Implanted:Qty: 1 on 12/26/2022 by Keily Kelley IV, MD at [facility] [place] [employer] : CRM [id number] 11/19/2024 [id number] 9 / [id number] / [id number] Lead Novus Bipolar 52cm - [id number] Implanted:Qty: 1 on 12/26/2022 by Keily Kelley IV, MD at [facility] [place] [employer] : CRM [id number] 10/10/2024 5076- 52 / [id number] / [id number] Pacemaker [place] Xt Dr [facility] - [id number] Implanted:Qty: 1 on 12/26/2022 by Keily Kelley IV, MD at [facility] [place] [employer] [id number] 05/17/2024 W1DR01 / [id number] / [id number] documented as of this encounter Procedures Procedure [...] interpreted or resulted by a [facility] or [employer] contracted radiologist. Lilly Carmichael PA-C RADIOLO GY [...] Advance Directives occurred with: Patient Care Teams Macerator Operator Relationship Specialty Start Date End Date Vincent Slaughter MD [address] [place] [address] PCP - General Internal Medicine 05/22/21 documented as of this encounter
--- OUTSIDE RECORDS SUMMARY | 2024-08-26 09:44 | External Medical Summary | Summary of Care ---
Author Name Unknown Organization [facility] Address [address] [place] [address] Phone [phone] Care Team Providers Care Trial Management Associate Name Role Phone Vincent Slaughter MD Primary Care Provider + Reason for Visit * Reason Comments Outpatient Testing Encounter Details Date Type Department Care Team (Late st Contact Info) Description 03/11/2024 8:40 AM EDT Laboratory Laboratory, [address] [phone] [facility], Lab [address] [place], [place] [id number] CLL (chronic lymphocytic leukemia) ([facility]) Allergies Active Allergy Reactions Criticality Noted Date Comments Heparin High 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 30 mL 12 11/22/2022 Active [...] Activated (Fluticasone-Umecl idinium-Vilanterol )Indications:Bronc hiectasis without complication ([facility]),Chronic bronchitis, unspecified chronic bronchitis type ([facility]),COPD (chronic obstructive pulmonary disease) with chronic bronchitis ([facility]),ILD (interstitial lung disease) ([facility]) Inhale 1 Puff by mouth in the morning. 60 Blister Dosing Unit 3 03/01/2024 Active Additional Information Patient not taking.Reported on 03/03/2024 Hospital, Clinic, or Other Facility Administered Medication Ordered Dose Route Frequency Start Date End Date Status Albuterol Sulfate (Proventil) (2.5 MG/3ML) 0.083% inhalation solution 2.5 mgIndications:ILD (interstitial lung disease) ([facility]),Hypersensitivity pneumonitis ([facility]),COPD, group B, by GOLD 2017 classification ([facility]),Dyspnea on exertion,Chronic cough 2.5 mg NEBULIZER ONCE PRN 01/07/2024 01/06/2025 Ac tive documented as of this encounter (statuses as of 03/11/2024) Active Problems Problem Noted Date Diagnosed Date [...] as of this encounter (statuses as of 03/11/2024) Resolved Problems Problem Noted Date Diagnosed Date [...] chronic sinusitis 03/27/200508/2018 CHRONIC LYMPHOID LEUKEMIA [facility] MENTION OF REMISSION 02/25/2005 04/14/2018 ADVANCE [...] as of this encounter (statuses as of 03/11/2024) Immunizations Name Administration Dates Next Due Pneumococcal [...] Care Team (Late st Contact Info) Description 03/12/2024 9:00 AM EDT Pharmacy Pharmacy Hematology Oncology [facility] [address] [place] [address] [facility] Hem[facility]Onc [address] [place] [address] 03/16/2024 11:40 AM EDT Office Visit Dermatology, Karuna Mirza [address] [facility] [address] [place] [address] Lilly Carmichael PA-C [address] [place] [address] 03/18/2024 1:00 PM EDT Cardiac Studies Cardiac Studies, [facility] 132 [facility] [place] [address] 04/26/2024 12:20 PM EDT Office Visit Pulmonary Medicine, [facility] 132 [facility] [place] [address] Tomi Hayes DO [address] [place] [address] 05/05/2024 12:40 PM EDT Office Visit General Internal Medicine [facility] 200 [facility], [place] [address] Nazario Whaley, [address] [place] [address] 05/28/2024 1:00 PM EDT Office Visit Dermatology [facility] 200 [facility] [place] [address] Vincent Buck MD 200 [facility] [place] [address] 06/02/2024 9:30 AM EDT Office Visit Hematology/Oncology [facility] 200 [facility] [place] [phone] Lucien Jamil MD 200 [facility] [place] [address] 09/27/2024 3:30 PM EST Office Visit Cardiology, [facility] [address] [place] [address] Cuauhtemoc Jo, [address] [place] [address] 12/03/2024 11:15 AM EDT Office Visit Otolaryngology [facility] [address] [place] [address] Susanne Thrasher MD [address] [place] [address] Pending Results Name Type Priority Associated Diagnoses Date /Time CBC WITH WBC DIFFERENTIAL Lab STAT CLL (chronic lymphocytic leukemia) ([facility]) 03/11/2024 8:41 AM EDT COMPREHENSIVE METABOLIC PANEL Lab STAT CLL (chronic lymphocytic leukemia) ([facility]) 03/11/2024 8:41 AM EDT CBC Lab STAT CLL (chronic lymphocytic leukemia) ([facility]) 03/11/2024 8:41 AM EDT DIFFERENTIAL, AUTOMATED Lab STAT CLL (chronic lymphocytic leukemia) ([facility]) 03/11/2024 8:41 AM EDT Health Maintenance Due Date Last Done Comments COVID-19 Vaccine (#1) 02/07/1945 Zoster Vaccines (1 of 2) 02/07/1959 CKD PHOS USE SMARTSET 11174 11/29/2023 04/2 02/2023, 11/07/2022, 10/16/2021, Additional history exists Influenza Vaccine (FLU shot) (#1) 2024 Albumin/Creatinine Ratio 05/22/2024 023, 05/09/2022, 09/17/1999 Depression Screening 05/22/2024 05/22/2023 GFR 08/28/2024 02/26/2024, 07/03/2024, 01/23/2024, Additional history exists DTaP,Tdap,and Td Vaccines (4 - Td or Tdap) 12/01/2024 12/01/2014, 12/01/2014, 12/01/2014 CKD HGB USE SMARTSET 47170 02/25/202502/25, 02/26/2024, 02/09/2024, Additional history exists O2 [...] this encounter Medical Devices Implanted Type Area Backend Java Developer Device Identifier Shelf Expiration Date Model / Serial / Lot Valve Korey 3 Ultra 26mm - [id number] Implanted:Qty: 1 on 12/24/2022 [place] [facility] [place] [employer] [id number] 07/03/2023 [id number] / / Lead Pace Selectsecure 3830-69 - [id number] Implanted:Qty: 1 on 12/26/2022 by Keily Kelley IV, [place] [facility] [place] [employer] : CRM [id number] 11/19/2024 [id number] / [id number] / [id number] Lead Novus Bipolar 52cm - [id number] Implanted:Qty: 1 on 12/26/2022 by Keily Kelley IV, [place] [facility] [place] [employer] : CRM [id number] 10/10/2024 5076- 52 / [id number] / [id number] Pacemaker Parul Xt Dr Mri [facility] - [id number] Implanted:Qty: 1 on 12/26/2022 by Keily Kelley IV, [place] [facility] [place] [employer] [facility] [id number] 05/17/2024 [id number] / [id number] / [id number] documented as of this encounter Visit Diagnoses [...] Advance Directives occurred with: Patient Care Teams Trial Management Associate Relationship Specialty Start Date End Date Vincent Slaughter MD 200 [facility] [place] [place] [address] PCP - General Internal Medicine 05/22/21 documented as of this encounter
--- OUTSIDE RECORDS SUMMARY | 2024-08-26 09:44 | External Medical Summary | Summary of Care ---
Author Name Unknown Organization [facility] Address [address] [place] [address] Phone [phone] Care Team Providers Care Elevator Erector Name Role Phone Vincent Slaughter MD Primary Care Provider + Reason for Visit * Reason Onset Date Comments Test Results 02/26/2024 Encounter Details Date Type Department Care Team (Late st Contact Info) Description 02/26/2024 Telephone General Internal Medicine [facility] 200 [facility] [place], [place] [phone] Vincent Slaughter MD 200 [facility] [place] [address] Test Results Allergies Active Allergy Reactions Criticality Noted Date Comments Heparin High 01/01/2023 ?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 30 mL 12 11/22/2022 Active [...] 03/03/2024 Losartan Potassium 50 MG Oral Tablet (Cozaar)Indicatio ns:HTN, goal below 140/90 TAKE 1 TABLET BY MOUTH EVERY MORNING 30 Tablet 5 11/07/2023 Active Chlorambucil 2 MG Oral Tablet (Leukeran)Indicat ions:CLL (chronic lymphocytic leukemia) ([facility]) Take 1 Tablet by mouth in the morning. Take medication on an empty stomach.. 30 Tablet 5 11/21/2023 Active methylPREDNISolon e 4 MG Oral Tablet Therapy Pack (Medrol Dosepack)Indicati ons:Sensorineural hearing loss (SNHL) of both ears,Dysfunction of both eustachian tubes follow package directions 21 Tablet 01/06/2024 Active Additional Information Patient not taking.Reported on 03/03/2024 Anoro Ellipta 62.5-25 MCG/ACT Inhalation Aerosol Powder Breath Activated (umeclidinium-adelso anterol)Indicatio ns:COPD (chronic obstructive pulmonary disease) with chronic bronchitis ([facility]),ILD (interstitial lung disease) ([facility]) Inhale 1 Puff by mouth in the morning. 30 Each 5 02/03/2024 4 Discontinue d(Medicatio n/Dose Changed) Hospital, Clinic, or Other Facility Administered Medication Ordered Dose Route Frequency Start Date End Date Status Albuterol Sulfate (Proventil) (2.5 MG/3ML) 0.083% inhalation solution 2.5 mgIndications:ILD (interstitial lung disease) ([facility]),Hypersensitivity pneumonitis ([facility]),COPD, group B, by GOLD 2017 classification ([facility]),Dyspnea on exertion,Chronic cough 2.5 mg NEBULIZER ONCE PRN 01/07/2024 01/06/2025 Ac tive documented as of this encounter (statuses as of 03/08/2024) Active Problems Problem Noted Date Diagnosed Date [...] as of this encounter (statuses as of 03/08/2024) Resolved Problems Problem Noted Date Diagnosed Date [...] as of this encounter (statuses as of 03/08/2024) Immunizations Name Administration Dates Next Due Pneumococcal [...] encounter Miscellaneous Notes * Telephone Encounter - Veronica Kinsey LPN - 02/26/2024 10:55 AM EDT ----- Message from Nazario Whaley DO sent at 02/24/2024 2:44 PM EDT ----- Reviewed patient's CT chest. Shows some evidence of chronic bronchitis. Possible interstitial lung disease. Also some findings that could be the result of chronic aspiration. Difficult to discuss all findings over the phone. Spoke with patient and would like to schedule himfor follow-up on Friday or Friday of next week documented in this encounter Plan of Treatment Upcoming Encounters Date Type Department Care Team (Late st Contact Info) Description 03/12/2024 9:00 AM EDT Pharmacy Pharmacy Hematology Oncology [facility] [address] [place] [address] [facility] Hem/Onc [address] [place] [address] 03/16/2024 11:40 AM EDT Office Visit Dermatology, Karuna Mirza [address] [place] [address] Lilly Carmichael PA-C [address] [place] [address] 03/18/2024 1:00 PM EDT Cardiac Studies Cardiac Studies, [facility] 132 [facility] [place] [address] 04/26/2024 12:20 PM EDT Office Visit Pulmonary Medicine, [facility] 132 [facility] [place] [address] Tomi Hayes DO [address] [place] [address] 05/05/2024 12:40 PM EDT Office Visit General Internal Medicine [facility] [address] [place] [address] Nazario Whaley, DO [address] [place] [address] 05/28/2024 1:00 PM EDT Office Visit Dermatology [facility] 200 [facility] [place] [address] Vincent Buck MD 200 [facility] [place] [address] 06/02/2024 9:30 AM EDT Office Visit Hematology/Oncology [facility] 200 [facility] [place] [phone] Lucien Jamil MD 200 [facility] [place] [address] 09/27/2024 3:30 PM EST Office Visit Cardiology, [facility] 132 [facility] [place] [address] Cuauhtemoc Jo, DO [address] [place] [address] 12/03/2024 11:15 AM EDT Office Visit Otolaryngology [facility] [address] [place] [address] Susanne Thrasher MD [address] [place] [address] Health Maintenance Due Date Last Done Comments COVID-19 Vaccine (#1) 02/07/1945 Zoster Vaccines (1 of 2) 02[birth year]/1959 CKD PHOS USE SMARTSET 45883 11/29/2023/2 02/2023, 11/07/2022, 10/16/2021, Additional history exists Influenza Vaccine (FLU shot) (#1) 2024 Albumin/Creatinine Ratio 05/22/2024 023, 05/09/2022, 09/17/1999 Depression Screening 05/22/2024 05/22/2023 GFR 08/28/2024 02/26/2024, 07/0 03/2024, 01/23/2024, Additional history exists DTaP,Tdap,and Td Vaccines (4 - Td or Tdap) 12/01/2024 12/01/2014, 12/01/2014, 12/01/2014 CKD HGB USE SMARTSET 23041 02/25/202502/25, 02/26/2024, 02/09/2024, Additional history exists O2 [...] this encounter Medical Devices Implanted Type Area Analytical Statistician Device Identifier Shelf Expiration Date Model / Serial / Lot Valve Korey 3 Ultra 26mm - [id number] Implanted:Qty: 1 on 12/24/2022 by Jesse Tanner MD [place] [facility] [place] [employer] [id number] 07/03/2023 [id number] / / Lead Pace Selectsecure 3830-69 - [id number] Implanted:Qty: 1 on 12/26/2022 by Keily Kelley IV, MD at [facility] [place] [employer] : CRM [id number] 11/19/2024 [id number] / [id number] / [id number] Lead Novus Bipolar 52cm - [id number] Implanted:Qty: 1 on 12/26/2022 by Keily Kelley IV, MD at [facility] [place] [employer] : CRM [id number] 10/10/2024 5076- 52 / [id number] / [id number] Pacemaker Parul Xt Dr Kwesi Wr - [id number] Implanted:Qty: 1 on 12/26/2022 by Keily Kelley IV, MD at [facility] [place] [employer] [id number] 05/17/2024 W1DR01 / [id number] / [id number] documented as of this encounter Advance Directives * Full Code (Latest Code Status on File) Date Activated Date Inactivated Comments 12/24/2022 11:13 AM 12/27/2022 10:05 PM This order reflects the patients wishes and were consensually agreed upon. Question Answer Comments Discussion of Advance Directives occurred with: Patient Care Teams Elevator Erector Relationship Specialty Start Date End Date Vincent Slaughter MD 200 [place] [address] PCP - General Internal Medicine 05/22/21 documented as of this encounter
--- OUTSIDE RECORDS SUMMARY | 2024-08-26 09:44 | External Medical Summary | Summary of Care ---
Author Name Unknown Organization [facility] Address [address] [place] [address] Phone [phone] Care Team Providers Care Spray Technician Name Role Phone Vincent Slaughter MD Primary Care Provider + Reason for Visit * Reason Comments Medication Management Encounter Details Date Type Department Care Team (Late st Contact Info) Description 03/12/2024 9:00 AM EDT Pharmacy Pharmacy Hematology Oncology [facility] [address] [place], [place] [phone] [facility] Hem/Onc [address] [place], [place] [phone] CLL (chronic lymphocytic leukemia) ([facility])* Allergies Active Allergy Reactions Criticality Noted Date [...] 0.1 % Nasal Solution (Astelin) Administer 1 [place] into nostril in the morning and 1 [place] before bedtime. 30 mL 12 11/22/2022 Active [...] Activated (Fluticasone-Umecl idinium-Vilanterol )Indications:Bronc hiectasis without complication ([facility]),Chronic bronchitis, unspecified chronic bronchitis type ([facility]),COPD (chronic obstructive pulmonary disease) with chronic bronchitis ([facility]),ILD (interstitial lung disease) ([facility]) Inhale 1 Puff by mouth in the morning. 60 Blister Dosing Unit 3 03/01/2024 Active Additional Information Patient not taking.Reported on 03/03/2024 Hospital, Clinic, or Other Facility Administered Medication Ordered Dose Route Frequency Start Date End Date Status Albuterol Sulfate (Proventil) (2.5 MG/3ML) 0.083% inhalation solution 2.5 mgIndications:ILD (interstitial lung disease) ([facility]),Hypersensitivity pneumonitis ([facility]),COPD, group B, by GOLD 2017 classification ([facility]),Dyspnea on exertion,Chronic cough 2.5 mg NEBULIZER ONCE [...] hemisphere infarct. Mri 01/14/2007 Mri done at [facility] Statin intolerance 07/27/2007 Overview: Hepatitis with [...] hemisphere infarct. Mri 01/14/2007 Mri done at [facility] Cerebrovascular event, ill-d efined, within last 8 weeks 02/23/2007 11/17/2008 Overview: Modified per CVA protocol #8 Chronic rhinitis 09/16/2005 12/31/2017 Deviated nasal septum 03/27/20052017 Acquired deformity of nose 03/27/200508/31/2016 NASAL & SINUS DIS NEC 03/27/20052016 Other chronic sinusitis 03/27/200508/2018 CHRONIC LYMPHOID LEUKEMIA [facility] MENTION OF REMISSION 02/25/2005 04/14/2018 ADVANCE DIRECTIVE [...] this encounter Progress Notes * Juanis Bay, [facility] - 03/11/2024 2:55 PM EDT MEDICATION THERAPY MANAGEMENT CHLORAMBUCIL (LEUKERAN) TREATMENT PROGRESS NOTE Luis M Tirado [phone] Patient Phone Numbers [employer] [phone] SPEAK LOUD HARD OF HEARING AND DIFFICULTY WITH TOUCH SCREEN PHONE Communication: Spoke to: Patient Current Treatment: Medication: Chlorambucil (Leukeran) Indication: CLL Dose: 2 mg daily Administration: by mouth without regards to food Start Date: 11/16/19; 11/30/23 Primary Ethnology Professor: Dr. Jamil Prophylactic Meds: Allopurinol 200 mg [...] but declining Hgb low but stable PLT declining at grade 1 thrombocytopenia BUN and creatinine declining to WNL All other labs stable Continue chlorambucil and q2wk labs (pt will walk in for labs) Assessment of compliance: compliant Assessment of adverse effects attributed to drug therapy: Fever - absent Neuropathy - absent Nausea/Vomiting - absent Diarrhea - absent Pneumonitis - absent Rash - absent Stomatitis - absent Dose adjustment needed based on lab or adverse drug reaction? No Follow up: 2 weeks [place]is Bay, PharmD, OP Clinical Pharmacist, [facility] Oral Chemotherapy [facility] 03/11/2024, 3:03 PM Pertinent labs: Latest Reference Range & Units 02/09/24 12:52 02/26/24 10:53 03/11/24 08:41 WBC 4.00 - 10.80 K/uL 51.28 (HH) 37.55 (H) 29.29 (H) RBC 4.50 - 5.25 M/uL 3.60 3.59 3.60 HGB 14.0 - 16.8 g/dL 11.3 (L) 11.4 (L) 11.5 (L) HCT 40.0 - 48.4 % 35.9 (L) 35.3 (L) 35.9 (L) MCV 82.0 - 99.5 fL 99.7 98.3 99.7 MCH 27.0 - 34.0 pg 31.4 31.8 31.9 MCHC 32.0 - 36.0 g/dL 31.5 32.3 32.0 RDW 11.5 - 15.5 % 15.1 15.2 14.9 PLT 140 - 400 K/uL 110 (L) 101 (L) 85 (L) MPV 6.6 - 11.1 fL 9.4 9.4 9.0 CBC WITH WBC DIFFERENTIAL Rpt !! Rpt ! Rpt ! Absolute Neutrophils 1.80 - 7.70 K/uL 2.82 2.63 3.22 Absolute Lymphocytes 1.00 - 4.80 K/uL 47.95 (H) 34.17 (H) 24.90 (H) Serum creatinine: 1.2 mg/dL 03/11/24 0841 Estimated creatinine clearance: 42.5 mL/min Latest Reference Range & Units 02/09/24 12:52 02/26/24 10:53 03/11/24 08:41 BUN 6 - 20 mg/dL 16 21 (H) 17 Creatinine 0.6 - 1.2 mg/dL 1.4 (H) 1.3 (H) 1.2 Estimated Glomerular Filtration Rate >=60 mL/min 52 (L) 56 (L) 58 (L) Latest Reference Range & Units 02/09/24 12:52 07/25/24 10:53 03/11/24 08:41 Albumin 3.8 - 5.0 g/dL 4.5 4.6 4.6 AST 10 - 50 U/L 28 23 26 ALT 10 - 50 U/L 7 (L) 11 10 Alkaline Phosphatase 35 - 130 U/L 82 73 73 Bilirubin, Total <=1.2 mg/dL 0.4 0.5 0.4 Suggested Labs: Monitor LFTs, CBC/diff [...] [address] [place] [address] Lilly Carmichael PA-C [address] [place] [address] 03/18/2024 1:00 PM EDT Cardiac Studies Cardiac Studies, [facility] 132 [facility] [place] [address] 03/26/2024 9:00 AM EDT Pharmacy Pharmacy Hematology Oncology [facility] [address] [place] [address] [facility], [facility] Hem/Onc [address] [place] [address] 04/26/2024 12:20 PM EDT Office Visit Pulmonary Medicine, [facility] [address] [place] [address] Tomi Hayes DO [address] [place] [address] 05/05/2024 12:40 PM EDT Office Visit General Internal Medicine [facility] 200 [facility] [place] [address] Nazario Whaley DO [address] [place] [address] 05/28/2024 1:00 PM EDT Office Visit Dermatology [facility] 200 [facility] [place] [address] Vincent Buck MD 200 [facility] [place] [address] 06/02/2024 9:30 AM EDT Office Visit Hematology/Oncology [facility] 200 [facility] [place] [phone] Lucien Jamil MD 200 [facility] [place] [address] 09/27/2024 3:30 PM EST Office Visit Cardiology, [facility] [address] [place] [address] Cuauhtemoc Jo DO [address] [place] [address] 12/03/2024 11:15 AM EDT Office Visit Otolaryngology [facility] [address] [place] [address] Susanne Thrasher MD [address] [place] [address] Health Maintenance Due Date Last Done Comments COVID-19 Vaccine (#1) 02/07/1945 Zoster Vaccines (1 of 2) 02/07/1959 Adult Wellness Visit 02/07/2006 CKD PHOS USE SMARTSET 38933 11/29/2023 04/2 02/2023, 11/07/2022, 10/16/2021, Additional history exists Influenza Vaccine (FLU shot) (#1) 2024 Albumin/Creatinine Ratio 05/22/2024 023, 05/09/2022, 09/17/1999 Depression Screening 05/22/2024 05/22/2023 GFR 09/11/2024 03/11/2024, 02/02, 02/09/2024, Additional history exists DTaP,Tdap,and Td Vaccines (4 - Td or Tdap) 12/01/2024 12/01/2014, 12/01/2014, 12/01/2014 O2 ASSESSMENT COMPLETED IN PAST YEAR FOR COPD 03/01/2025 03/01/2024 CKD HGB USE SMARTSET 16544 03/11/202503/11, 03/11/2024, 02/26/2024, Additional history exists Pneumococcal [...] this encounter Medical Devices Implanted Type Area Customer Service Clerk Device Identifier Shelf Expiration Date Model / Serial / Lot Valve Korey 3 Ultra 26mm - [id number] Implanted:Qty: 1 on 12/24/2022 by Jesse Tanner MD at [facility] [place] [employer] [id number] 07/03/2023 [id number] / / Lead Pace [employer] 3830-69 - [id number] Implanted:Qty: 1 on 12/26/2022 by Keily Kelley IV, MD at [facility] [place] [employer] : CRM [id number] 11/19/2024 [id number] 9 / [id number] / [id number] Lead Novus Bipolar 52cm - [id number] Implanted:Qty: 1 on 12/26/2022 by Keily Kelley IV, MD at [facility] [employer] : CRM [id number] 10/10/2024 5076- 52 / [id number] / [id number] Pacemaker [place] Xt Dr Orosco [facility] - [id number] Implanted:Qty: 1 on 12/26/2022 by Keily Kelley IV, MD at [facility] [employer] [id number] 05/17/2024 [id number] / [id number] / [id number] documented as of this encounter Visit Diagnoses [...] Advance Directives occurred with: Patient Care Teams Spray Technician Relationship Specialty Start Date End Date Vincent Slaughter MD 200 [facility] [place] [address] PCP - General Internal Medicine 05/22/21 documented as of this encounter
--- OUTSIDE RECORDS SUMMARY | 2024-08-26 09:45 | External Medical Summary | Summary of Care ---
Author Name Unknown Organization [facility] Address [address] [place] [address] Phone [phone] Care Team Providers Care Resistor Inspector Name Role Phone Vincent Slaughter MD Primary Care Provider + Reason for Referral * Evaluate & Treat - Unlimited Visits (Within 10 days (routine)) - Authorized Specialty Diagnoses / Procedures Referred By Contcristo t Referred To Contact Pulmonary Diseases / Pulmonary Diagnoses Bronchiectasis without complication (HCC) Chronic bronchitis, unspecified chronic bronchitis type (HCC) COPD (chronic obstructive pulmonary disease) with chronic bronchitis (HCC) ILD (interstitial lung disease) (HCC) Nazario Whaley DO [address] [place] [address] Referral ID Status Reason Start Date Expiration Date Visits Requested Visits Authorized [id number] Authorized Specialty Services Required 03/01/[phone] Question Answer Referral Priority Within 10 days (routine) [facility] be [facility] Primary Reason for Referral? Asthma/COPD Reason for Visit * Reason Comments Test Results Encounter Details Date Type Department Care Team (Latest Contact Info) Description 03/01/2024 3:00 PM EDT Office Visit General Internal Medicine [place] [address] [place] [address] Nazario Whaley DO [address] [place] [address] Bronchiectasis without complication (HCC)*; Chronic bronchitis, unspecified chronic bronchitis type (HCC); COPD (chronic obstructive pulmonary disease) with chronic bronchitis (HCC); ILD (interstitial lung disease) (HCC) Allergies Active Allergy Reactions Criticality Noted Date Comments Heparin High 01/01/2023 ?Possible 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 100 Tab 5 07/08/2018 Active Triamcinolone Acetonide [...] 0.1 % Nasal Solution (Astelin) Administer 1 [place] into nostril in the morning and 1 [place] before bedtime. 30 mL 12 11/22/2022 Active [...] 60 Blister Dosing Unit 3 03/01/2024 Active Anoro Ellipta 62.5-25 MCG/ACT Inhalation Aerosol Powder Breath Activated (umeclidinium-tony nterol)Indications :COPD (chronic obstructive pulmonary disease) with chronic bronchitis [...] as of this encounter (statuses as of 03/01/2024) Active Problems Problem Noted Date Diagnosed Date [...] at [facility] Statin intolerance 07/27/2007 Overview: Hepatitis with Zocor Other sleep apnea 06/01/2001 documented as of this encounter (statuses as of 03/01/2024) Resolved Problems Problem Noted Date Diagnosed Date [...] DIS NEC 03/27/20052016 Other chronic sinusitis 03/27/2005 08/0 08/2018 CHRONIC LYMPHOID LEUKEMIA [facility] [...] as of this encounter (statuses as of 03/01/2024) Immunizations Name Administration Dates Next Due Pneumococcal [...] Sign Reading Time Taken Comments Blood Pressure 136/80 03/01/2024 2:53 PM EDT Pulse 68 03/01/2024 2:53 PM EDT Temperature 36.7 C (98.1 F) 03/01/2024 2:53 PM ED T Respiratory Rate 20 03/01/2024 2:53 PM EDT Oxygen Saturation 97% 03/01/2024 2:53 PM EDT Inhaled Oxygen Concentration - - Weight 78.7 kg (173 lb 6.4 oz) 03/01/2024 2:53 P M EDT Height - - Body Mass Index 30.72 02/03/2024 10:13 AM EDT documented in this encounter Functional [...] as of this encounter Progress Notes * Nazario Whaley Vincent, DO - 03/01/2024 3:13 PM EDT Dharmesh Tirado is a 84 year old male. Chief Complaint Patient presents with Test Results HPI: Patient presents for follow-up of shortness of breath. To review CT scan results. This was done due to chronic dyspnea on exertion. Cardiac cause had been ruled out. Had noted previous interstitial changes on CT scan from [address]. [address] chest without contrast showed stable mosaic attenuationon expiratory images. Bronchial wall thickening, mild bronchiectasis in lower lobes. Consistent with chronic small airway disease. Showed subpleural reticular opacities suggesting previous aspirationor interstitial lung disease/hypersensitivity pneumonitis. Enlarged but stable mediastinal nodes. Had PFTs done which did not show significant obstructive or restrictive lung defect. Did not show evidence of change after bronchodilator administration At previous visit patient was placed on trial of Anoro Ellipta. Has few days left on previous supply. Has been tolerating inhaler but does not note much improvement. Still has occasional cough. Occasionally productive of mostly clear mucus. Still feels chest congested. Denies any significant smoking history. Again did have COVID-19 infection few years ago. Does not note obvious significant exposure to coal, silica, asbestos. No obvious exposures to his work States did have a coughing fit last month and coughed up something strange. Upon evaluation patientshows a pill container with a Ladybird beetle. Suggested that this is what he coughed up. Also suggest that he had 1 that he thought was stuck in his ear that may have been causing his sinus symptoms PMH: Patient Active Problem List Diagnosis Other [...] stage 3a (HCC) PSVT (paroxysmal supraventricular tachycardia) ([facility]) History of 2019 novel coronavirus disease (COVID-19) ILD (interstitial lung disease) (HCC) COPD (chronic obstructive pulmonary disease) with chronic bronchitis ([facility]) COPD, group B, by GOLD 2017 classification (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) Complete heart block ([facility]) S/P placement of cardiac pacemaker Current Outpatient [...] 1 Tablet by mouth in the morning. 100 Tab 5 Triamcinolone Acetonide 55 MCG/ACT [...] 0.1 % Nasal Solution (Astelin) Administer 1 [place] into nostril in the morning and 1 [place] before bedtime. 30 mL 12 Azithromycin 500 [...] Dosepack) follow package directions 21 Tablet 0 Anoro Ellipta 62.5-25 MCG/ACT Inhalation Aerosol Powder Breath Activated (umeclidinium-vilanterol) Inhale 1 Puff by mouth in the morning. 30 Each 5 Current Facility-Administered Medications Medication Dose Route [...] in 5 years COLONOSCOPY, DIAGNOSTIC (RECTUM) 09/27/2014 normal/[facility] COLONOSCOPY, SURGICAL 02/2000 cloacogenic polyp: removed by Dr Zuñiga CORONARY ANGIOGRAPHY W/LEFT HEART CATH Right 11/28/2022 CORONARY ANGIOGRAPHY W/LEFT HEART CATH performed by Adolfo Pierce DO at [facility] EXPLORE PARATHYROID GLANDS 1997 Parathyroidectomy FRACTURE NOS 2002 Fractures L leg/bone graft INJECTION OF EYE DRUG Right 07/09/2016 # 1 Eylea OD, INJECTION OF EYE DRUG Right 09/19/2016 # 2 Eylea OD, INJECTION OF EYE DRUG Right 11/07/2016 # 1 Triesence OD, Dr. Jc INSERT/REPLACE PACEMAKER,ATRIAL/VENTRICULAR Left 12/26/2022 NEW DDD PACEMAKER IMPLANT performed by Keily Kelley IV, MD at [facility] LUMBAR SPINE FUSION, POST INTERBODY Dr. Estrada lower back MISCELLANEOUS ORDER ([facility] ONLY) Right 07/09/2016 Eylea OD Consent signed, MISCELLANEOUS ORDER ([facility] ONLY) Right 11/07/2016 Triesence OD Consent Signed, Dr. Jc [facility], 1ST STAGE; FACE, HANDS, FEET, NERVE "one left side of throat and two on my head" OTHER 06/2005 Dr. Reeder; nasal surgery OTHER 11/2006 left shoulder arthroscopy OTHER (INFORMATION) ACT 112 SIGNED 12/04/22 DR. 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 HENT: Positive for sinus pressure and sinus pain. Negative for congestion, sore throat and trouble swallowing. Eyes: Negative for photophobia and pain. Respiratory: Positive for cough, shortness of breath and wheezing. Negative for choking and chest tightness. Cardiovascular: Negative for chest pain, palpitations and leg swelling. Gastrointestinal: Negative for abdominal distention, abdominal pain, nausea and vomiting. Genitourinary: Negative for dysuria and frequency. Musculoskeletal: Negative for back pain and neck stiffness. Skin: Negative for pallor. Neurological: Negative for dizziness, light-headedness and headaches. Psychiatric/Behavioral: Negative for sleep disturbance. The patient is not nervous/anxious. Objective BP 136/80 | Pulse 68 | Temp 36.7 C (98.1 F) (Tympanic) | Resp 20 | Wt 78.7 kg (173 lb 6.4 oz) |SpO2 97% | BMI 30.72 kg/m | BSA 1.87 m Physical Exam Constitutional: General: He is not in acute distress. Appearance: He is not ill-appearing. HENT: Head: Normocephalic and atraumatic. Right Ear: Tympanic membrane, ear canal and external ear normal. Left Ear: Tympanic membrane, ear canal and external ear normal. Ears: Comments: Both ear drums are intact. No blockages and ear canals Nose: Nose normal. No congestion or rhinorrhea. Mouth/Throat: Mouth: Mucous membranes are dry. Pharynx: Oropharynx is clear. Eyes: General: No scleral icterus. Extraocular Movements: Extraocular movements intact. Conjunctiva/sclera: Conjunctivae normal. Pupils: Pupils are equal, round, and reactive to light. Neck: Vascular: No carotid bruit. Cardiovascular: Rate and Rhythm: Normal rate and regular rhythm. Pulses: Normal pulses. Heart sounds: Normal heart sounds. No murmur heard. No friction rub. No gallop. Pulmonary: Effort: Pulmonary effort is normal. Breath sounds: Rhonchi present. No wheezing or rales. Comments: Still seem to be some expiratory rhonchi. No tachypnea or accessory muscle use Abdominal: General: Bowel sounds are normal. There [...] Affect: Mood normal. Behavior: Behavior normal. ASSESSMENT/PLAN: Bronchiectasis without complication (HCC) (Primary) - Trelegy Ellipta 200-62.5-25 MCG/ACT Aerosol Powder Breath Activated (Gtawwhhwsdx-Debwttjazndq-Nhslitgavr); Inhale 1 Puff by mouth in the morning. - PULMONARY REFERRAL OP Chronic bronchitis, unspecified chronic bronchitis type (HCC) - Trelegy Ellipta 200-62.5-25 MCG/ACT Aerosol Powder Breath Activated (Fmutykofptd-Ipaibkofgoqh-Snwxewhdti); Inhale 1 Puff by mouth in the morning. - PULMONARY REFERRAL OP COPD (chronic obstructive pulmonary disease) with chronic bronchitis (HCC) - Trelegy Ellipta 200-62.5-25 MCG/ACT Aerosol Powder Breath Activated (Tafclnyyxpg-Qumztaxorlsc-Kitaqwzcgl); Inhale 1 Puff by mouth in the morning. - PULMONARY REFERRAL OP ILD (interstitial lung disease) (HCC) - Trelegy Ellipta 200-62.5-25 MCG/ACT Aerosol Powder Breath Activated (Mnuwhugngol-Mlrnotodurcv-Yjtfbvwyvq); Inhale 1 Puff by mouth in the morning. - PULMONARY REFERRAL OP Plan: Patient presents office for follow-up of dyspnea on exertion, cough. Review CT images Explained to patient/ that CT showed constellation of findings that could represent chronic bronchitis/bronchiectasis. Possible interstitial lung disease. Was seen on previous CT scans dating back to 2021 Unsure if this could be related to his previous COVID-19 infection. Unsure if may have been some other exposure. He does not recall significant secondhand smoke exposure Has not noted much improvement from Anoro Ellipta. Will do trial of Trelegy Ellipta 200-60 2.5-25 mcg 1 inhalation daily. Counseled on common side effects which to monitor. Counseled to rinse mouth with each use Will see how he does. PFTs did not show obvious signs of broncho spasm Would like to refer to pulmonary for further evaluation Did explained to patient that unsure if be needle was what he could have actually coughed up. Also explained that there would be no anatomically possible way for B12 to get from his ear through his ear drum through his Eustachian tube and down into his airway. It is plausible that he might have swallowed it by accident while riding golf cart outside. Unsure if any connection to any of his symptoms Continue with rest of court and azelastine nasal sprays daily for chronic sinusitis. Does not seem to have have any evidence of acute sinusitis infection on exam currently Follow Up: Return if symptoms worsen or fail to improve, for Follow up next routine with PCP as scheduled. | For: Follow up next routine with PCP as scheduled | Check-out note: Follow up as scheduledOctober Pulmonary referral Nazario Whaley DO documented in this encounter Nursing Notes * Justyna Hough LPN - 03/01/2024 2:50 PM EDT Luis M Tirado presents for recheck to discuss chest CT results. Medications & HM reviewed. documented in this encounter Plan of Treatment Upcoming Encounters Date Type Department Care Team (Late st Contact Info) Description 03/03/2024 3:00 PM EDT Office Visit Cardiology, [facility] [address] [place] [address] Jesse Tanner MD [address] [place] [address] 03/11/2024 11:45 AM EDT Office Visit Dermatology [facility] [address] [facility] [place] [address] Vincent Buck MD [address] [facility] [place] [address] 03/12/2024 9:00 AM EDT Pharmacy Pharmacy Hematology Oncology [facility] [address] [place] [address] Gm, [facility] Hem/Onc [address] [place] [address] 04/26/2024 12:20 PM EDT Office Visit Pulmonary Medicine, [facility] [address] [facility] [place] [address] Tomi Hayes DO [address] [place] [address] 05/05/2024 12:40 PM EDT Office Visit General Internal Medicine [facility] [address] [facility] [place] [address] Nazario Whaley DO [address] [place] [address] 05/28/2024 1:00 PM EDT Office Visit Dermatology [facility] [address] [place] [address] Vincent Buck MD [address] [facility] [place] [address] 06/02/2024 9:30 AM EDT Office Visit Hematology/Oncology [facility] [address] [place] [id number] Lucien Jamil MD [address] [facility] [place] [address] 12/03/2024 11:15 AM EDT Office Visit Otolaryngology [facility] [address] [facility] [place] [address] Susanne Thrasher MD [address] [facility] [place] [address] Scheduled Referrals Name Type Priority Associated Diagnoses Orde r Schedule PULMONARY REFERRAL OP Referral Within 10 days (routine) Bronchiectasis without complication (HCC) Chronic bronchitis, unspecified chronic bronchitis type (HCC) COPD (chronic obstructive pulmonary disease) with chronic bronchitis (HCC) ILD (interstitial lung disease) (HCC) Ordered: 03/01/2024 Health Maintenance Due Date Last Done Comments COVID-19 Vaccine (#1) 02/07/1945 Zoster Vaccines (1 of 2) 02/07/1959 CKD PHOS USE SMARTSET [id number] 11/29/2023 04/2 02/2023, 11/07/2022, 10/16/2021, Additional history exists Influenza Vaccine (FLU shot) (#1) 2024 Albumin/Creatinine Ratio 05/22/2024 023, 05/09/2022, 09/17/1999 Depression Screening 05/22/2024 05/22/2023 GFR 08/28/2024 02/26/2024, 07/0 03/2024, 01/23/2024, Additional history exists DTaP,Tdap,and Td Vaccines (4 - Td or Tdap) 12/01/2024 12/01/2014, 12/01/2014, 12/01/2014 CKD HGB USE SMARTSET 72315 02/25/202502/25, 02/26/2024, 02/09/2024, Additional history exists O2 [...] this encounter Medical Devices Implanted Type Area Pantograph Machine Operator Device Identifier Shelf Expiration Date Model / Serial / Lot Valve Korey 3 Ultra 26mm - [id number] Implanted:Qty: 1 on 12/24/2022 by Jesse Tanner MD at [facility] [employer] [id number] 07/03/2023 [id number] / / Lead Pace Selectsecure 3830-69 - [id number] Implanted:Qty: 1 on 12/26/2022 by Keily Kelley IV, MD at [facility] [employer] : ALYSON [id number] 11/19/2024 [id number] / [id number] / [id number] Lead Novus Bipolar 52cm - [id number] Implanted:Qty: 1 on 12/26/2022 by Keily Kelley IV, MD at [facility] [employer] : CRM [id number] 10/10/2024 [id number] / [id number] / [id number] Pacemaker [place] Xt Dr Orosco [facility] - [id number] Implanted:Qty: 1 on 12/26/2022 by Keily Kelley IV, MD at [facility] [employer] [id number] 05/17/2024 [id number] / [id number] / [id number] documented as of this encounter Visit Diagnoses Diagnosis Bronchiectasis without complication (HCC)- Primary Bronchiectasis without acute exacerbation Chronic bronchitis, unspecified chronic bronchitis type (HCC) COPD (chronic obstructive pulmonary disease) with chronic bronchitis (HCC) Obstructive chronic bronchitis without exacerbation ILD (interstitial lung disease) (HCC) Postinflammatory pulmonary fibrosis documented in this encounter Advance Directives * Full Code (Latest Code Status on File) Date Activated Date Inactivated Comments 12/24/2022 11:13 AM 12/27/2022 10:05 PM This order reflects the patients wishes and were consensually agreed upon. Question Answer Comments Discussion of Advance Directives occurred with: Patient Care Teams Resistor Inspector Relationship Specialty Start Date End Date Vincent Slaughter MD [address] [place] [address] PCP - General Internal Medicine 05/22/21 documented as of this encounter
--- OUTSIDE RECORDS SUMMARY | 2024-08-26 09:45 | External Medical Summary | Summary of Care ---
Author Name Unknown Organization [facility] Address [address] [place] [address] Phone [phone] Care Team Providers Care Software Developer Name Role Phone Vincent Slaughter MD Primary Care Provider + Reason for Visit * Reason Comments Pulmonary Function Test Encounter Details Date Type Department Care Team (Latest Contact Info) Description 02/23/2024 10:30 AM EDT PulmDiagnostic Pulmonary Function Lab, [facility] [address] [facility] [place] [id number] [facility] [address] [place] [address] ILD (interstitial lung disease) ([facility])*; Hypersensitivity pneumonitis ([facility]); COPD, group B, by GOLD 2017 classification ([facility]); Dyspnea on exertion; Chronic cough Allergies Active Allergy Reactions Criticality Noted Date Comments Heparin High 01/01/2023 ?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 30 mL 12 11/22/2022 Active [...] follow package directions 21 Tablet 01/06/2024 Active Anoro Ellipta 62.5-25 MCG/ACT Inhalation Aerosol Powder Breath Activated (umeclidinium-adelso anterol)Indicatio ns:COPD (chronic obstructive pulmonary disease) with chronic bronchitis ([facility]),ILD (interstitial lung disease) ([facility]) Inhale 1 Puff by mouth in the morning. 30 Each 5 02/03/2024 4 Discontinue d(Medicatio n/Dose Changed) Hospital, Clinic, or Other Facility Administered Medication Ordered Dose Route Frequency Start Date End Date Status Albuterol Sulfate (Proventil) (2.5 MG/3ML) 0.083% inhalation solution 2.5 mgIndications:ILD (interstitial lung disease) ([facility]),Hypersensitivity pneumonitis (HCC),COPD, group B, by GOLD 2017 classification ([facility]),Dyspnea on exertion,Chronic cough 2.5 mg NEBULIZER ONCE PRN 01/07/2024 01/06/2025 Ac tive documented as of this encounter (statuses as of 03/02/2024) Active Problems Problem Noted Date Diagnosed Date [...] [facility] Statin intolerance 07/27/2007 Overview: Hepatitis with Zocor Other sleep apnea 06/01/2001 documented as of this encounter (statuses as of 03/02/2024) Resolved Problems Problem Noted Date Diagnosed Date [...] as of this encounter (statuses as of 03/02/2024) Immunizations Name Administration Dates Next Due Pneumococcal [...] as of this encounter Miscellaneous Notes * Result Encounter Note - Nazario Whaley DO - 02/26/2024 7:01 PM EDT Spirometry normal. Will discuss at upcoming appointment documented in this encounter Plan of Treatment Upcoming Encounters Date Type Department Care Team (Late st Contact Info) Description 03/03/2024 3:00 PM EDT [facility] [address] [facility] [place] [address] Jesse Tanner MD [address] [place] [address] 03/11/2024 11:45 AM EDT Office Visit Dermatology [facility] [address] [facility] [place] [address] Vincent Buck MD [address] [facility] [place] [address] 03/12/2024 9:00 AM EDT Pharmacy Pharmacy Hematology Oncology [facility] [address] [place] [address] [facility] Hem/Onc [address] [place] [address] 04/26/2024 12:20 PM EDT Office Visit Pulmonary Medicine, [facility] [address] [facility] [place] [address] Tomi Hayes DO [address] [place] [address] 05/05/2024 12:40 PM EDT Office Visit General Internal Medicine [facility] [address] [facility] [place] [address] Nazario Whaley DO [address] [place] [id number] 05/28/2024 1:00 PM EDT Office Visit Dermatology [facility] [address] [facility] [place] [address] Vincent Buck MD [address] [facility] [place] [address] 06/02/2024 9:30 AM EDT Office Visit Hematology/Oncology [facility] [address] [facility] [place] [phone] Lucien Jamil MD [address] [facility] [place] [address] 12/03/2024 11:15 AM EDT Office Visit Otolaryngology [facility] [address] [facility] [place] [address] Susanne Thrasher MD [address] [facility] [place] [address] Health Maintenance Due Date Last Done Comments COVID-19 Vaccine (#1) 02/07/1945 Zoster Vaccines (1 of 2) 02/07/1959 CKD PHOS USE SMARTSET 45088 11/29/2023 042 02/2023, 11/07/2022, 10/16/2021, Additional history exists Influenza Vaccine (FLU shot) (#1) 2024 Albumin/Creatinine Ratio 05/22/2024 023, 05/09/2022, 09/17/1999 Depression Screening 05/22/2024 05/22/2023 GFR 08/28/2024 02/26/2024, 07/0 03/2024, 01/23/2024, Additional history exists DTaP,Tdap,and Td Vaccines (4 - Td or Tdap) 12/01/2024 12/01/2014, 12/01/2014, 12/01/2014 CKD HGB USE SMARTSET 49202 02/25/202502/25, 02/26/2024, 02/09/2024, Additional history exists O2 [...] this encounter Medical Devices Implanted Type Area Replenishment Associate Device Identifier Shelf Expiration Date Model / Serial / Lot Valve Korey 3 Ultra 26mm - [id number] Implanted:Qty: 1 on 12/24/2022 by Jesse Tanner MD at [facility] [employer] [id number] 07/03/2023 [id number] / / Lead Pace Selectsecure 3830-69 - [id number] Implanted:Qty: 1 on 12/26/2022 by Keily Kelley IV, MD at [facility] [place] [employer] : CRM [id number] 11/19/2024 [id number] / [id number] / [id number] Lead Novus Bipolar 52cm - [id number] Implanted:Qty: 1 on 12/26/2022 by Keily Kelley IV, MD at [facility] [place] [employer] : CRM [id number] 10/10/2024 [id number] / [id number] / [id number] Pacemaker Parul Xt Dr Mri Wrls - [id number] Implanted:Qty: 1 on 12/26/2022 by Keily Kelley IV, MD at [facility] [place] [employer] [id number] 05/17/2024 [id number] / [id number] / [id number] documented as of this encounter Procedures Procedure Name Priority Date/Time Associated Diagnosis Comments SPIROMETRY B/A BRONCHODILATOR Routine 02/23/2024 9:57 AM EDT ILD (interstitial lung disease) (HCC) Hypersensitivity pneumonitis (HCC) COPD, group B, by GOLD 2017 classification (HCC) Dyspnea on exertion Chronic cough documented in this encounter Results * SPIROMETRY B/A BRONCHODILATOR (02/23/2024 9:57 AM EDT) FVC Actual Pre 3.17 L [facility] NGER [facility] FVC Actual Pre %Predict 110 % [facility] FVC Actual Post 3.10 L ALEXANDRE MIA BREEZE FVC Actual Post %Change -2 % [facility] FEV1 Actual Pre 2.67 L ALEXANDRE MIA BREEZE FEV1 Actual Pre %Predict 124 % [facility] FEV1 Actual Post 2.60 L [facility] FEV1 Actual Post %Change -3 % [facility] FEV1/FVC Actual Pre 84 % [facility] FEV1/FVC Actual Post 84 % [facility] FEF 25-75% Actual Pre 3.45 L/sec [facility] FEF 25-75% Actual Pre %Predict 213 % [facility] FEF 25-75% Actual Post 2.87 L/sec [facility] FEF 25-75% Actual Post %Change -16 % [facility] 02/23/2024 9:57 AM EDT Narrative [facility] - 02/23/2024 9:57 AM EDT Spirometry is normal, without significant change measured following bronchodilator administration. When compared with testing that was last performed on May 09, 2022, FVC has increased significantly by 0.94 L, and FEV1 has increased significantly by 0.82 L.This interpretation has been electronically signed: SIS MOSS MD 02/26/2024 02:17:20 PM Nazario Whaley MEDICINE EDDIE RICK documented in this encounter Visit Diagnoses Diagnosis ILD (interstitial lung disease) ([facility])- Primary Postinflammatory pulmonary fibrosis Hypersensitivity pneumonitis (HCC) Unspecified allergic alveolitis and pneumonitis COPD, group B, by GOLD 2017 classification ([facility]) Dyspnea on exertion Other dyspnea and respiratory abnormality Chronic cough Cough documented in this encounter Administered Medications Active Administered Medications - up to 3 most recent administrations Medication Order MAR Action Action Date Dose Rate Site Albuterol Sulfate (Proventil) (2.5 MG/3ML) 0.083% inhalation solution 2.5 mg 2.5 mg, Nebulizer, ONCE PRN Other, Testing, Starting on Fri01/07/24 at 0909, Until Divya 01/06/25 at 0908, For 365 days, Only one type of albuterol product should be administered (Nebulizer or Inhaler). Please select and document on the appropriate albuterol product order. Given 02/23/2024 10:14 AM EDT 2.5 mg documented in this encounter Advance Directives * Full Code (Latest Code Status on File) Date Activated Date Inactivated Comments 12/24/2022 11:13 AM 12/27/2022 10:05 PM This order reflects the patients wishes and were consensually agreed upon. Question Answer Comments Discussion of Advance Directives occurred with: Patient Care Teams Software Developer Relationship Specialty Start Date End Date Vincent Slaughter MD [address] [facility] [place] [address] PCP - General Internal Medicine 05/22/21 documented as of this encounter
[2024-08-26 09:46] LABS: Albumin Globulin Ratio 2.3 (0.9-2); Albumin Level 4.1 gm/dl (3.4-5.0); BUN Creatinine Ratio 13.2 (10-20); Bilirubin,Total 1.5 mg/dl (0.2-1.0); Calcium 8.7 mg/dl (8.6-10.3); Creatinine Clr Calc Pharmacy 40.7 ml/min; Globulin 1.8 gm/dl (2.5-4.0); Magnesium 1.6 mg/dl (1.7-2.4); Potassium 2.9 mmol/L (3.5-5.1); Total Protein 5.9 gm/dl (6.0-8.3)
[2024-08-26 09:48] LABS: INR 1.1 (0.9-1.1)
[2024-08-26 09:55] LABS: Troponin I High Sensitivity 75.4 pg/ml (0-20)
[2024-08-26 10:12] LABS: Basophils # (auto) 0.05 K/uL (0.00-0.20); Basophils % (auto) 0.2 %; Eosinophils # (auto) 0.02 K/uL (0.00-0.50); Eosinophils % (auto) 0.1 %; Immature Granulocytes # (auto) 0.18 K/uL (0.01-0.20); Immature Granulocytes % (auto) 0.7 %; Lymphocytes % (auto) 44.2 %; Monocytes % (auto) 3.7 %; Neutrophils # (auto) 13.91 K/uL (1.40-6.50); Neutrophils % (auto) 51.1 %
[2024-08-26 10:28] LABS: Adenovirus PCR Not Detected (NotDetected); Bordetella parapertussis PCR Not Detected (NotDetected); Bordetella pertussis PCR Not Detected (NotDetected); Chlamydia pneumoniae PCR Not Detected (NotDetected); Coronavirus 229E PCR Not Detected (NotDetected); Coronavirus CoV-2 (COVID19)PCR Not Detected (NotDetected); Coronavirus HKU1 PCR Not Detected (NotDetected); Coronavirus NL63 PCR Not Detected (NotDetected); Coronavirus OC43PCR Not Detected (NotDetected); Human Metapneumovirus PCR Not Detected (NotDetected); Influenza A PCR Not Detected (NotDetected); Influenza B PCR Not Detected (NotDetected); Mycoplasma pneumoniae PCR Not Detected (NotDetected); Parainfluenza Virus 1 PCR Not Detected (NotDetected); Parainfluenza Virus 2 PCR Not Detected (NotDetected); Parainfluenza Virus 3 PCR Not Detected (NotDetected); Parainfluenza Virus 4 PCR Not Detected (NotDetected); Respiratory Syncytial VirusPCR Not Detected (NotDetected); Rhinovirus/Enterovirus PCR DETECTED (NotDetected)
[2024-08-26 10:41] LABS: Appearance Urine Clear (Clear); Bacteria Urine Automated None Seen (None Seen); Bilirubin Urine Negative (Negative); Blood Urine Trace (Negative); Cast Urine Automated 0-2 /lpf (0-2); Color Urine Yellow; Epithelial Cell Urine Auto 0-2 /hpf (0-2); Glucose Urine UA Negative (Negative); Ketones Urine Trace (Negative); Leukocyte Esterase Urine Negative (Negative); Nitrite Urine Negative (Negative); Protein Urine 1+ (Negative); RBC Urine Automated 0-2 /hpf (0-2); Specific Gravity Urine 1.009 (1.000-1.030); Urobilinogen Urine Negative (Negative); WBC Urine Automated 0-5 /hpf (0-5); pH Urine 6.5 (4.5-7.5)
[2024-08-26] MEDS ORDERED: VANCOMYCIN CONSULT ACTIVE PRN ×2 (10:42→13:01)
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
[2024-08-26] MEDS: OPTIRAY 320 100ml IV ONE (11:05)
--- NOTE | 2024-08-26 11:25 | CT Scan Report ---
CT head/brain wo con CLINICAL HISTORY: scalp/left neck cellulitis/s/p Mohs. TECHNIQUE: Multiple axial CT images of the head were obtained without contrast. A dose lowering tech nique was utilized adhering to the principles of ALARA. CT DOSE: 1700 COMPARISON: None FINDINGS: No intracranial hemorrhage seen. No mass effect, midline shift, or hydrocephalus. There is mild stranding in the left parietal scalp consistent with given history of cellulitis. No focal absce ss seen in this region. No skull fracture. No evidence of osteomyelitis. There is mucosal thickening and fluid in the left frontal sinus consistent with sinusitis. Otherwise the visualized paranasal sin uses and mastoid air cells are clear. IMPRESSION: 1. No acute intracranial findings. 2. Cellulitis at the left scalp without evidence of focal soft tissue abscess. ACT 112: Negative or not required by law. The above report was generated using voice recognition software. It may contain grammatical, syntax o r spelling errors. Electronically signed by: Keshawn Middleton M.D. 08/26/2024 11:24 AM
--- NOTE | 2024-08-26 11:33 | CT Scan Report ---
CT soft tissue neck w con HISTORY: 84 years-old Male scalp/left neck cellulitis/s/p Mohs reported soft tissue infection of the left neck and scalp COMPARISON: Head CT of same day, CT chest 02/05/2022 TECHNIQUE: Multiple axial CT images of the chest were obtained with IV contrast. A dose lowering tech nique was used consistent with the principals of EMMETT. FINDINGS: Head CT dictated separately. Atherosclerosis of the carotid arteries. There is approximately 50% sten osis involving the proximal right ICA. Left subclavian pacer. Unremarkable orbits. Patent airway. Mod erate enlargement of the lingual tonsils. Unremarkable appearance of the glottis and subglottic airwa y. Thyroid is within normal limits. Subcutaneous and deep tissue edema noted within the lateral left neck. No fluid collection. Enlarged anterior and posterior cervical chain lymph nodes on the left kem sure up to 1.3 cm in short axis. Prominent subcentimeter right-sided cervical chain lymph nodes are a lso noted. Moderate to severe mucosal thickening within the left frontal sinus. Mastoid air cells and middle ear cavities appear clear. Degenerative changes of the spine. Groundglass densities of the lung apices s uggestive of scarring/atelectasis. IMPRESSION: 1. Subcutaneous and deep tissue edema and left back suggestive of cellulitis without abscess. 2. Enlarged left-sided cervical chain lymph nodes are nonspecific. These findings could be evaluated with a one-month follow-up ultrasound. 3. Head CT dictated separately. ACT 112: Negative or not required by law. The above report was generated using voice recognition software. It may contain grammatical, syntax o r spelling errors. Electronically signed by: Isael Erickson M.D. 08/26/2024 11:31 AM
--- NOTE | 2024-08-26 11:37 | CT Scan Report ---
CT head/brain w con CLINICAL HISTORY: scalp/left neck cellulitis/s/p Mohs TECHNIQUE: Contiguous axial CT images of the head from the base of the skull to the vertex before and after intravenous administration of IV contrast and submitted for interpretation. Automated dose low ering techniques and/or adjustment according to patient size were utilized for this examination. COMPARISON: None available at the time of this dictation. Findings: The ventricles, basal cisterns, and cerebral sulci are normal. There is no acute intracranial hemorrh age or evidence of acute territorial infarction. Neither mass effect, shift of the midline structures , nor abnormal extra-axial fluid collections are shown. Frontal sinus thickening is seen. The orbits appear normal. There are no acute fractures of the calv aria. Scalp swelling is seen in the vertex and left sided soft tissues. No drainable fluid collection is seen. Impression: Left scalp cellulitis without drainable fluid collection. No intracranial abnormalities. ACT 112: Negative or not required by law. Electronically signed by: Alton Covington M.D. 08/26/2024 11:36 AM
[2024-08-26] MEDS: ACETAMINOPHEN 1,000 MG/100 ML VIAL IV STA (11:49)
[2024-08-26] MEDS: POTASSIUM CHLORIDE / WTR 10 MEQ/100 ML PLCT IV SCH ×2 (11:52→13:39)
[2024-08-26] MEDS: MAGNESIUM SULFATE / D5W 1 GM/100 ML BAG IV SCH (11:52)
[2024-08-26] MEDS: POTASSIUM CHLORIDE CRTAB 20 MEQ TABCR PO STA (11:55)
[2024-08-26] MEDS ORDERED: SODIUM CHLORIDE 0.65% NA SOLN 45 ML (OCEAN) PRN (12:17)
[2024-08-26] MEDS ORDERED: ALBUTEROL HFA 8 GM INHALER INH PRN (12:17)
[2024-08-26] MEDS: VANCOMYCIN HCL 2,000 MG in SODIUM CHLORIDE 0.9% 500 ML IV ONE (12:45)
[2024-08-26] MEDS: CEFEPIME 2000MG 2,000 MG/20 ML SYR IV STA (12:45)
[2024-08-26] MEDS ORDERED: VANCOMYCIN HCL 1,250 MG in SODIUM CHLORIDE 0.9% 250 ML IV SCH (13:01)
[2024-08-26] MEDS ORDERED: ONDANSETRON INJ 2 MG/ML 2 ML VIAL IV PRN (13:01)
[2024-08-26] MEDS ORDERED: MAGNESIUM HYDROXIDE SUSP 30 ML UDC PO PRN (13:01)
[2024-08-26] MEDS: MAGNESIUM SULFATE / D5W 1 GM/100 ML BAG IV STA (13:39)
--- NOTE | 2024-08-26 13:50 | Electrocardiogram Report ---
Test Reason : Blood Pressure : */* mmHG Vent. Rate : 60 BPM Atrial Rate : 63 BPM P-R Int : * ms QRS Dur : 164 ms QT Int : 482 ms P-R-T Axes : * -26 48 degrees QTcB Int : 482 ms Ventricular-paced rhythm Abnormal ECG When compared with ECG of 08-Feb-2022 14:19, Electronic ventricular pacemaker has replaced Sinus rhythm Confirmed by Sher Butterfield ([id number]) on 08/26/2024 1:50:01 PM Referred By: Confirmed By: Sher Butterfield
--- NOTE | 2024-08-26 13:51 | Pharmacy Report ---
Pharmacy PK ABX Note - Date of Service August 26, 2024 - Assessment and Plan Assessment 84 year old M receiving vancomycin and cefepime for treatment of scalp and neck cellulitis s/p recent scalp biopsy. History of CLL and squamous cell carcinoma. Blood cultures pending. SCr 1.29 (baseline ~ 0.9). Day #1 of antimicrobial therapy. Plan Vancomycin * Loading dose: 2000 mg IV x 1 * Maintenance dose: 1250 mg IV every 24 hours * Regimen is predicted to achieve target AUC/MINGO of 400-600 mg/L.hr * Will obtain a level if therapy continued beyond 48h or sooner if clinically indicated Pharmacy will continue to follow and will adjust dose/frequency as necessary. Thank you. Pharmacy has transitioned to AUC monitoring for vancomycin. AUC/MINGO is the preferred PK/PD target and is associated with decreased risk of nephrotoxicity compared to traditional trough targets.
[2024-08-26] MEDS: ADVANCED PROBIOTIC 625 MG CAPSULE PO SCH (15:16)
[2024-08-26] MEDS: NSS + 20MEQ KCL 20 MEQ/1,000 ML BAG IV SCH (17:07)
[2024-08-26] MEDS: METOPROLOL SUCC 25MG EXT REL TAB PO SCH (21:32)
[2024-08-26] MEDS: ACETAMINOPHEN 325 MG TAB PO PRN (21:33)
[2024-08-27] MEDS: CEFEPIME 2000MG 2,000 MG/20 ML SYR IV SCH (00:06)
[2024-08-27] MEDS: VANCOMYCIN HCL 1,250 MG in SODIUM CHLORIDE 0.9% 250 ML IV SCH (06:37)
[2024-08-27 06:51] LABS: Smudge Cells Present
[2024-08-27 07:03] LABS: Hematocrit (blood only) 29.6 % (42.0-52.0); Hemoglobin 9.9 g/dl (14.0-18.0); Mean Corpuscular Hemoglobin 31.4 pg (25.0-34.0); Mean Corpuscular Hgb Conc 33.4 g/dL (32.0-36.0); Mean Platelet Volume 9.6 fL (9.4-12.4); Platelet Count 77 K/uL (130-400); RDW Coefficient of Variation 13.6 % (11.5-14.5); RDW Standard Deviation 46.7 fL (36.4-46.3); Red Blood Count 3.15 M/uL (4.70-6.10); White Blood Count 18.24 K/ul (4.8-10.8)
[2024-08-27 07:40] LABS: Albumin Globulin Ratio 1.8 (0.9-2); Albumin Level 3.5 gm/dl (3.4-5.0); BUN Creatinine Ratio 12.5 (10-20); Calcium 8.3 mg/dl (8.6-10.3); Creatinine Clr Calc Pharmacy 50.4 ml/min; Potassium 3.5 mmol/L (3.5-5.1); Total Protein 5.5 gm/dl (6.0-8.3)
[2024-08-27] MEDS: MAGNESIUM OXIDE 400 MG TAB PO SCH (07:55)
[2024-08-27] MEDS: FLUTICASONE FUROATE 200MCG 14 PUFFS/INHALER INH SCH (07:56)
[2024-08-27] MEDS: ASPIRIN 81 MG ECTAB PO SCH (07:56)
[2024-08-27] MEDS: allopurinoL 100 MG TAB PO SCH (07:56)
[2024-08-27] MEDS: UMECLIDINIUM/VILANTEROL 62.5/25MCG 7 PUFFS/INHALER INH SCH (07:57)
[2024-08-27] MEDS: MONTELUKAST SODIUM 10 MG TABLET PO SCH (07:57)
[2024-08-27 08:01] LABS: Basophils # (auto) 0.03 K/uL (0.00-0.20); Basophils % (auto) 0.2 %; Echinocytes 1+; Eosinophils # (auto) 0.11 K/uL (0.00-0.50); Eosinophils % (auto) 0.6 %; Immature Granulocytes # (auto) 0.12 K/uL (0.01-0.20); Immature Granulocytes % (auto) 0.7 %; Lymphocytes # (auto) 9.34 K/uL (1.20-3.40); Lymphocytes % (auto) 51.2 %; Monocytes # (auto) 0.56 K/uL (0.11-0.59); Monocytes % (auto) 3.1 %; Neutrophils # (auto) 8.08 K/uL (1.40-6.50); Neutrophils % (auto) 44.2 %; Ovalocytes 1+; Smudge Cells Present
--- NOTE | 2024-08-27 08:08 | Hospitalist Progress Note ---
Date of Service August 27, 2024 Assessment & Plan (1) Sepsis: (2) Cellulitis of scalp: (3) Cellulitis of neck: (4) Hypokalemia: (5) Hypomagnesemia: (6) Elevated troponin: (7) Rhinovirus infection: (8) Chronic lymphocytic leukemia: (9) Acute urinary retention: Plan Luis M Tirado is an 84y/o M with PMHx significant for HLD, HTN, COPD, ILD, ascending aorta dilatation, PSVT, CHB s/p pacemaker placement, AVS s/p TAVR, CVA in 2006, CKD stage IIIa, macular degeneration of L eye, thrombocytopenia, CLL on Leukeran, chronic anemia and squamous cell carcinoma who presented to the ED for evaluation on 08/26/2024 secondary to fevers and chills x 3 days. background information from most recent surgical pathology from biopsy on 08/23/24 A. Skin, left parietal scalp, anterior, shave: Comment: The histologic findings are consistent with actinic keratosis with possible erosive pustular dermatosis of the scalp. Clinical correlation is required. B. Skin, central parietal scalp, shave: Comment: The histologic findings are consistent with actinic keratosis with possible erosive pustular dermatosis of the scalp. Focal solar lentigo is also noted in the specimen. Clinical correlation is required. C. Skin, left vertex scalp, shave: Comment: Hematoxylin and eosin stained sections show a proliferative epidermis with keratinocyte atypia as well as neutrophilic crust and focal epidermal erosion with neutrophils as well as a hair follicle containing neutrophils. D. Skin, left posterior scalp, shave: Comment: The histologic findings are consistent with actinic keratosis with possible erosive pustular dermatosis of the scalp. Clinical correlation is required. Sepsis ISO L Scalp & Neck Cellulitis S/P Recent Scalp Biopsy: Patient recently underwent biopsy of a lesion on his L scalp region this past 08/23/2024 (results outlined just above here) PMH of numerous SCC in numerous locations including his L neck, R frontal scalp, L vertex, L nasal bridge and R mid helix requiring previous Mohs procedures. Required a hinge flap at one point to cover exposed bone on his scalp region s/p Mohs surgery last year. Meets sepsis criteria in ED 2/2 fevers, RR>20, HR>90 & L scalp+neck cellulitis. Lactate negative. S/p 2L NSS in ED. IV vancomycin + cefepime started in ED. Procalcitonin 0.81; Blood cultures drawn as well. Head CT --> L scalp cellulitis, no evidence of abscess or intracranial abnormalities. Soft tissue neck CT --> Subcutaneous and deep tissue edema within the lateral left neck suggestive of cellulitis without abscess. Enlarged L-sided cervical chain lymph nodes which are nonspecific - findings can be reevaluated with a 1- month follow-up ultrasound. -Continue IV vancomycin + cefepime for now. Follow blood cultures. Wound culture ordered as well. -BP improving s/p IVF, received 2LNS total in ED. -MRSA negative -Wound care consulted. PRN pain control with Percocet. Started low dose Gabapentin today -Pt complaining of scalp burning; WOCN has see patient; vasoline + gauze recommended. -General surgery consulted; appreciate recommendations. No surgical intervention at this time. -Infectious Disease consulted for abx guidance. Awaiting consult. Hypokalemia: -K+ 2.9 on admission. IV KCl 10mEq, 1NSS + 20mEq KCl and 40mEq po KCl ordered. -Today K+ 3.5; trend in AM Hypomagnesemia: -Serum Mg+ 1.6 in ED; received 2G Mg+ in ED. -Mg+ today 2.0. Can continue home mag supplement. -Recheck in AM Acute Urinary Retention: Notes increased urinary frequency however patient feels as if he is not emptying his bladder completely. PVR 400mL in ED; Ward catheter ordered. Closely monitor I&Os. Bladder scan QS. UA negative for infection. Patient with bloody output in ward; suspect traumatic insertion along with thrombocytopenia. UA neg. Urine cx pending. Hematuria noted in ward bag; likely secondary to traumatic catheter insertion and thrombocytopenia; will monitor. Immunocompromised State Chronic Lymphocytic Leukemia (CLL): Thrombocytopenia: Follows with Dr. Jamil. He reports he was on Leukeran for his CLL however he stopped this medication last Friday after it was thought this medication was causing skin lesions, notably the one of his scalp region which was biopsied on Friday. Baseline WBC count ~20-30k per chart review. Hold Leukeran. Plt level 77; likely secondary to infection; will trend this afternoon on 08/27 to monitor. Hold ASA for now. Has an appt with Dr. Jamil scheduled for 09/06/24 Elevated Troponin - Suspect Demand Ischemia ISO Active Infection: Initial troponin 75.4-->55.5; suspect demand ischemia ISO infection. Appears troponin is chronically elevated at baseline per chart review. EKG reviewed and reassuring, without prolonged Qtc. EKG with chest pain PRN. Entero-/Rhinovirus Positive on Respiratory BioFire Panel: He was on 2L NC supplemental O2 following COVID infection back in February 2022 but was able to come off of it. Not currently using any supplemental O2. Aspiration precautions. CXR negative. Droplet precautions for now Other Chronic Medical Conditions: * HTN - Can continue metoprolol succinate. Initially, Losarten held due to hypotension. Resolved. Restart Losarten if BP remains elevated tmw and monitor. * COPD/ILD - Continue Trelegy, Singulair and PRN albuterol inhaler. Breathing status at baseline as per above. No evidence of acute exacerbation. * Gout - Continue allopurinol. Disposition: Admit to PCU/Telemetry for further inpatient evaluation and management. Code Status: DNR/DNI - As discussed with the patient at bedside in the ED. PCP: Vincent Slaughter MD DVT Prophylaxis: SCDs/TEDs for now ISO thrombocytopenia. Hold ASA for now given thrombocytopenia. I spent a total of 56 minutes coordinating, documenting, and providing care for this patient excluding time spent in the performance of separately billed services or time spent by another provider/QHP. This included personally reviewing all current laboratories and imaging studies, medical reconciliation, outpatient chart review and discussion with specialists. This chart was completed in part utilizing Speech Voice Recognition Software. Grammatical errors, random word insertions, pronoun errors, and incomplete sentences are an occasional consequence of this system due to software limitations, ambient noise, and hardware issues. Any formal questions or concern s about the content, text, or information contained within the body of this dictation should be directly addressed to the provider for clarification. Admission and Anticipated Discharge Date Admission Date: August 26, 2024 Supervising Physician Co-Signing Physician Notes Attending Addendum: Case reviewed with the advanced practitioner. I have reviewed the advanced practitioner's documentation on the date of service referenced in note, and I agree with, and take responsibility for the plan of care. please refer to her notes for full details patient seen and examined, records reviewed by myself as well diagnoses and plan of care as per advanced practitioner's notes Conner Batista MD I spent a total of 30 minutes coordinating, documenting and providing care for this patient excluding time spent in the performance of separately billed s ervices or time spent by another provider/QHP. Subjective Pt is a pleasant and talkative gentleman that was sitting in his hospital bed in no apparent distress during my encounter. He reports that he started to notice pressure in his skull in late June and underwent a MOHS/biopsy in August with what appears to be an I/D and biospy Pt denies chest pain, SOB, dizziness, N/V/D. Reports that it feels like his 'scalp is on fire' with increased excoriation, skin erosion and eschar. See below for plan of care. Review of Systems Review of Systems: Neuro: (-) Falls, trauma, slurred speech HEENT: (-) GARCIA, dizziness, dysphagia, visual or auditory changes CV: (-) CP, palpitations, swelling Resp: (-) SOB GI: (-) appetite changes, N/V/D, bowel changes : (+) lower abdominal pressure Skin: (-) rashes (+) excoriation/skin on top of scalp with (+) eschar Psych: (-) anxiety, depression Physical Exam Physical Exam: Neuro: AAOx4, PERRLA, no aphagia, memory changes, CNII-XII grossly intact HEENT: head normocephalic, moist mucus membranes CV: S1/S2, (-) M/G/R, (-) edema, cap refill < 3 seconds Resp: Lungs CTA in all enriquez. On RA GI: Abdomen S/NT/ND, Ax4 bowel sounds, (-) CVA tenderness Musculoskeletal: 5/5 B/L UE strength, 5/5 B/L LE strength. No gait disturbance Skin: (-) rashes , (+) scalp excoriation with eschar on top of head : indwelling wadr catheter; blood tinged urine; likely related to trauma during insertion and thrombocytopenia. Psych: euthymic mood Results & Data Results & Data Vital Signs (Past 12 Hours) Vital Signs Temp Pulse Pulse Resp BP Pulse Ox O2 Del Method 08/27/24 07:14 37.3 C 68 18 162/77 H 94 Room Air 01/24/25 04:54 36.5 C 72 18 158/76 H 95 Room Air 08/27/24 01:50 37.0 C 08/26/24 23:43 37.9 C H 71 18 158/74 H 94 Room Air 08/26/24 23:18 76 08/26/24 22:48 Room Air Laboratory Results Short CBC 08/26/24 08/27/24 Range/Units 09:00 06:46 WBC 27.16 H 18.24 H (4.8-10.8) K/ul Hgb 10.9 L 9.9 L (14.0-18.0) g/dl Hct 32.3 L 29.6 L (42.0-52.0) % Plt Count 98 L 77 L (130-400) K/uL BMP 08/26/24 08/26/24 08/27/24 09:00 20:23 06:46 Sodium 134 L 136 Potassium 2.9 L 3.5 D 3.5 Chloride 99 106 Carbon Dioxide 24 23 BUN 17 13 Creatinine 1.29 1.04 Glucose 107 H 87 Calcium 8.7 8.3 L Liver Function 08/26/24 08/27/24 Range/Units 09:00 06:46 Total Bilirubin 1.5 H 1.0 D (0.2-1.0) mg/dl AST 24 20 (13-39) U/L ALT 11 10 (7-52) U/L Alkaline Phosphatase 55 48 (34-104) U/L Albumin 4.1 3.5 (3.4-5.0) gm/dl Urine 08/26/24 Range/Units 10:25 Urine Color Yellow Urine Appearance Clear (Clear) Urine pH 6.5 (4.5-7.5) Ur Specific [place] 1.009 (1.000-1.030) Urine Protein 1+ H (Negative) Urine Glucose (UA) Negative (Negative) (1) Sepsis Sepsis acute organ dysfunction status: unspecified Sepsis type: sepsis due to unspecified organism Qualified Code(s): A41.9 - Sepsis, unspecified organism
[2024-08-27] MEDS ORDERED: NON-FORMULARY MEDICATION (Fluticasone-Umeclidin-Vilanter [Trelegy Ellipta] 200-62.5-25 mcg INH SCH (09:00)
[2024-08-27] MEDS: oxyCODONE/ACETAMINOPHEN 5mg/325mg TAB PO PRN (10:46)
[2024-08-27] MEDS: GABAPENTIN 100 MG CAP PO SCH (12:22)
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
[2024-08-27 15:11] LABS: Hematocrit (blood only) 27.7 % (42.0-52.0); Hemoglobin 9.3 g/dl (14.0-18.0); Mean Corpuscular Hemoglobin 31.3 pg (25.0-34.0); Mean Corpuscular Hgb Conc 33.6 g/dL (32.0-36.0); Mean Corpuscular Volume 93.3 fL (80.0-100.0); Mean Platelet Volume 9.7 fL (9.4-12.4); Platelet Count 74 K/uL (130-400); RDW Coefficient of Variation 13.4 % (11.5-14.5); RDW Standard Deviation 45.4 fL (36.4-46.3); Red Blood Count 2.97 M/uL (4.70-6.10); White Blood Count 15.39 K/ul (4.8-10.8)
[2024-08-28] MEDS: POTASSIUM CHLORIDE CRTAB 20 MEQ TABCR PO STA (05:15)
[2024-08-28] MEDS: METOPROLOL SUCC 25MG EXT REL TAB PO STA (05:16)
[2024-08-28 06:13] LABS: Hematocrit (blood only) 27.6 % (42.0-52.0); Hemoglobin 9.2 g/dl (14.0-18.0); Mean Corpuscular Hemoglobin 31.2 pg (25.0-34.0); Mean Corpuscular Hgb Conc 33.3 g/dL (32.0-36.0); Mean Corpuscular Volume 93.6 fL (80.0-100.0); Mean Platelet Volume 9.9 fL (9.4-12.4); Platelet Count 89 K/uL (130-400); RDW Coefficient of Variation 13.3 % (11.5-14.5); Red Blood Count 2.95 M/uL (4.70-6.10); White Blood Count 15.44 K/ul (4.8-10.8)
[2024-08-28 06:35] LABS: BUN Creatinine Ratio 14.6 (10-20); Calcium 8.4 mg/dl (8.6-10.3); Creatinine Clr Calc Pharmacy 50.7 ml/min; Potassium 3.5 mmol/L (3.5-5.1)
[2024-08-28] MEDS: POTASSIUM CHLORIDE CRTAB 20 MEQ TABCR PO ONE (06:39)
--- NOTE | 2024-08-28 07:15 | Hospitalist Progress Note ---
Date of Service August 28, 2024 Assessment & Plan (1) Sepsis: (2) Cellulitis of scalp: (3) Cellulitis of neck: (4) Hypokalemia: (5) Hypomagnesemia: (6) Elevated troponin: (7) Rhinovirus infection: (8) Chronic lymphocytic leukemia: (9) Acute urinary retention: Plan Luis M Tirado is an 84y/o M with PMHx significant for HLD, HTN, COPD, ILD, ascending aorta dilatation, PSVT, CHB s/p pacemaker placement, AVS s/p TAVR, CVA in 2006, CKD stage IIIa, macular degeneration of L eye, thrombocytopenia, CLL on Leukeran, chronic anemia and squamous cell carcinoma who presented to the ED for evaluation on 08/26/2024 secondary to fevers and chills x 3 days. background information from most recent surgical pathology from biopsy on 08/23/24 A. Skin, left parietal scalp, anterior, shave: Comment: The histologic findings are consistent with actinic keratosis with possible erosive pustular dermatosis of the scalp. Clinical correlation is required. B. Skin, central parietal scalp, shave: Comment: The histologic findings are consistent with actinic keratosis with possible erosive pustular dermatosis of the scalp. Focal solar lentigo is also noted in the specimen. Clinical correlation is required. C. Skin, left vertex scalp, shave: Comment: Hematoxylin and eosin stained sections show a proliferative epidermis with keratinocyte atypia as well as neutrophilic crust and focal epidermal erosion with neutrophils as well as a hair follicle containing neutrophils. D. Skin, left posterior scalp, shave: Comment: The histologic findings are consistent with actinic keratosis with possible erosive pustular dermatosis of the scalp. Clinical correlation is required. Sepsis ISO L Scalp & Neck Cellulitis S/P Recent Scalp Biopsy: Improving Patient recently underwent biopsy of a lesion on his L scalp region this past 08/23/2024 (results outlined just above here) PMH of numerous SCC in numerous locations including his L neck, R frontal scalp, L vertex, L nasal bridge and R mid helix requiring previous Mohs procedures. Required a hinge flap at one point to cover exposed bone on his scalp region s/p Mohs surgery last year. Meets sepsis criteria in ED 2/2 fevers, RR>20, HR>90 & L scalp+neck cellulitis. Lactate negative. S/p 2L NSS in ED. IV vancomycin + cefepime started in ED. Procalcitonin 0.81; Blood cultures drawn as well. Head CT --> L scalp cellulitis, no evidence of abscess or intracranial abnormalities. Soft tissue neck CT --> Subcutaneous and deep tissue edema within the lateral left neck suggestive of cellulitis without abscess. Enlarged L-sided cervical chain lymph nodes which are nonspecific - findings can be reevaluated with a 1- month follow-up ultrasound. -Continue IV vancomycin + cefepime for now. Follow blood cultures. Wound culture ordered as well. -BP improving s/p IVF, received 2LNS total in ED. -MRSA negative -Wound care consulted. PRN pain control with Percocet. Started low dose Gabapentin today -Pt complaining of scalp burning; WOCN has see patient; vasoline + gauze recommended. -General surgery consulted; appreciate recommendations. No surgical intervention at this time. -Infectious Disease consulted for abx guidance. Awaiting consult. Hypokalemia: Improving -K+ 2.9 on admission. IV KCl 10mEq, 1NSS + 20mEq KCl and 40mEq po KCl ordered. -Today K+ 3.5; trend in AM Hypomagnesemia: Improving -Serum Mg+ 1.6 in ED; received 2G Mg+ in ED. -Mg+ today 2.0. Can continue home mag supplement. -Recheck in AM Acute Urinary Retention: Notes increased urinary frequency however patient feels as if he is not emptying his bladder completely. PVR 400mL in ED; Ward catheter ordered. Closely monitor I&Os. Bladder scan QS. UA negative for infection. Patient with bloody output in ward; suspect traumatic insertion along with thrombocytopenia. UA neg. Urine cx pending. Hematuria noted in ward bag; likely secondary to traumatic catheter insertion and thrombocytopenia; will monitor. Improving; awaiting urine culture. Consider DC indwelling ward catheter once culture back. Immunocompromised State Chronic Lymphocytic Leukemia (CLL): Thrombocytopenia: Follows with Dr. Jamil. He reports he was on Leukeran for his CLL however he stopped this medication last Friday after it was thought this medication was causing skin lesions, notably the one of his scalp region which was biopsied on Friday. Baseline WBC count ~20-30k per chart review. Hold Leukeran. Plt level 89; likely secondary to infection; Hold ASA for now given continued hematuria. Revisit this on 08/[address] Dr. Jamil scheduled for 09/06/24 Elevated Troponin - Suspect Demand Ischemia ISO Active Infection: Resolved Initial troponin 75.4-->55.5; suspect demand ischemia ISO infection. Appears troponin is chronically elevated at baseline per chart review. EKG reviewed and reassuring, without prolonged Qtc. EKG with chest pain PRN. Entero-/Rhinovirus Positive on Respiratory BioFire Panel: He was on 2L NC supplemental O2 following COVID infection back in February 2022 but was able to come off of it. Not currently using any supplemental O2. Aspiration precautions. CXR negative. Droplet precautions for now Other Chronic Medical Conditions: * HTN - Can continue metoprolol succinate. Initially, Losarten held due to hypotension. Resolved. Restarted Losarten on 08/28 * COPD/ILD - Continue Trelegy, Singulair and PRN albuterol inhaler. Breathing status at baseline as per above. No evidence of acute exacerbation. * Gout - Continue allopurinol. Disposition: Admit to PCU/Telemetry for further inpatient evaluation and management. Code Status: DNR/DNI - As discussed with the patient at bedside in the ED. PCP: Vincent Slaughter MD DVT Prophylaxis: SCDs/TEDs for now ISO thrombocytopenia. Hold ASA for now given thrombocytopenia/bleeding. I spent a total of 54 minutes coordinating, documenting, and providing care for this patient excluding time spent in the performance of separately billed services or time spent by another provider/QHP. This included personally reviewing all current laboratories and imaging studies, medical reconciliation, outpatient chart review and discussion with specialists. This chart was completed in part utilizing Speech Voice Recognition Software. Grammatical errors, random word insertions, pronoun errors, and incomplete sentences are an occasional consequence of this system due to software limitations, ambient noise, and hardware issues. Any formal questions or concerns about the content, text, or information contained within the body of this dictation should be directly addressed to the provider for clarification. Admission and Anticipated Discharge Date Admission Date: August 26, 2024 Supervising Physician Co-Signing Physician Notes Attending Addendum: Case reviewed with the advanced practitioner. I have reviewed the advanced practitioner's documentation on the date of service referenced in note, and I agree with, and take responsibility for the plan of care. please refer to her notes for full details diagnoses and plan of care as per advanced practitioner's notes Conner Batista MD Subjective Pt is a pleasant and talkative gentlemanthat was standing next to his hospital bed in no apparent distress during my encounter. Pt denies chest pain, SOB, dizziness, N/V/D. Reports that it feels like his 'scalp is on fire' with increased excoriation, skin erosion and eschar. See below for plan of care. Review of Systems Review of Systems: Neuro: (-) Falls, trauma, slurred speech HEENT: (-) GARCIA, dizziness, dysphagia, visual or auditory changes CV: (-) CP, palpitations, swelling Resp: (-) SOB GI: (-) appetite changes, N/V/D, bowel changes : (+) lower abdominal pressure Skin: (-) rashes (+) excoriation/skin on top of scalp with (+) eschar Psych: (-) anxiety, depression Physical Exam Physical Exam: Neuro: AAOx4, PERRLA, no aphagia, memory changes, CNII-XII grossly intact HEENT: head normocephalic, moist mucus membranes CV: S1/S2, (-) M/G/R, (-) edema, cap refill < 3 seconds Resp: Lungs CTA in all enriquez. On RA GI: Abdomen S/NT/ND, Ax4 bowel sounds, (-) CVA tenderness Musculoskeletal: 5/5 B/L UE strength, 5/5 B/L LE strength. No gait disturbance Skin: (-) rashes , (+) scalp excoriation with eschar on top of head : indwelling ward catheter; blood tinged urine; likely related to trauma during insertion and thrombocytopenia. Psych: euthymic mood Results & Data Results & Data Vital Signs (Past 12 Hours) Vital Signs Temp Pulse Pulse Resp BP Pulse Ox O2 Del Method 08/28/24 03:03 37.0 C 73 20 170/70 H 94 Room Air 08/27/24 23:15 37.0 C 72 18 159/69 H 92 Room Air 08/27/24 22:09 80 08/27/24 20:04 37.5 C 67 18 170/73 H 96 Room Air 08/27/24 20:00 Room Air Laboratory Results Short CBC 08/27/24 08/28/24 Range/Units 14:56 05:38 WBC 15.39 H 15.44 H (4.8-10.8) K/ul Hgb 9.3 L 9.2 L (14.0-18.0) g/dl Hct 27.7 L 27.6 L (42.0-52.0) % Plt Count 74 L 89 L (130-400) K/uL BMP 08/28/24 05:38 Sodium 135 L Potassium 3.5 Chloride 104 Carbon Dioxide 22 BUN 15 Creatinine 1.03 Glucose 99 Calcium 8.4 L (1) Sepsis Sepsis acute organ dysfunction status: unspecified Sepsis type: sepsis due to unspecified organism Qualified Code(s): A41.9 - Sepsis, unspecified organism
[2024-08-28] MEDS: LOSARTAN POTASSIUM 50 MG TAB PO SCH (08:32)
[2024-08-28] MEDS: METOPROLOL SUCC 25MG EXT REL TAB PO SCH (20:15)
[2024-08-29 06:07] LABS: BUN Creatinine Ratio 13.8 (10-20); Calcium 8.5 mg/dl (8.6-10.3); Creatinine Clr Calc Pharmacy 47.9 ml/min; Potassium 3.8 mmol/L (3.5-5.1)
[2024-08-29 06:09] LABS: Hematocrit (blood only) 27.6 % (42.0-52.0); Hemoglobin 9.2 g/dl (14.0-18.0); Mean Corpuscular Hemoglobin 31.2 pg (25.0-34.0); Mean Corpuscular Hgb Conc 33.3 g/dL (32.0-36.0); Mean Corpuscular Volume 93.6 fL (80.0-100.0); Mean Platelet Volume 9.8 fL (9.4-12.4); Platelet Count 98 K/uL (130-400); RDW Coefficient of Variation 13.4 % (11.5-14.5); RDW Standard Deviation 45.9 fL (36.4-46.3); Red Blood Count 2.95 M/uL (4.70-6.10); White Blood Count 14.91 K/ul (4.8-10.8)
[2024-08-29] MEDS: VANCOMYCIN LEVEL ONE (06:18)
--- NOTE | 2024-08-29 07:15 | Hospitalist Progress Note ---
Date of Service August 29, 2024 Assessment & Plan (1) Sepsis: (2) Cellulitis of scalp: (3) Cellulitis of neck: (4) Hypokalemia: (5) Hypomagnesemia: (6) Elevated troponin: (7) Rhinovirus infection: (8) Chronic lymphocytic leukemia: (9) Acute urinary retention: Plan Luis M Tirado is an 84y/o M with PMHx significant for HLD, HTN, COPD, ILD, ascending aorta dilatation, PSVT, CHB s/p pacemaker placement, AVS s/p TAVR, CVA in 2006, CKD stage IIIa, macular degeneration of L eye, thrombocytopenia, CLL on Leukeran, chronic anemia and squamous cell carcinoma who presented to the ED for evaluation on 08/26/2024 secondary to fevers and chills x 3 days. background information from most recent surgical pathology from biopsy on 08/23/24 A. Skin, left parietal scalp, anterior, shave: Comment: The histologic findings are consistent with actinic keratosis with possible erosive pustular dermatosis of the scalp. Clinical correlation is required. B. Skin, central parietal scalp, shave: Comment: The histologic findings are consistent with actinic keratosis with possible erosive pustular dermatosis of the scalp. Focal solar lentigo is also noted in the specimen. Clinical correlation is required. C. Skin, left vertex scalp, shave: Comment: Hematoxylin and eosin stained sections show a proliferative epidermis with keratinocyte atypia as well as neutrophilic crust and focal epidermal erosion with neutrophils as well as a hair follicle containing neutrophils. D. Skin, left posterior scalp, shave: Comment: The histologic findings are consistent with actinic keratosis with possible erosive pustular dermatosis of the scalp. Clinical correlation is required. Sepsis ISO L Scalp & Neck Cellulitis S/P Recent Scalp Biopsy: Improving underwent biopsy of scalp region 08/23/2024 (results outlined just above here) PMH of SCC in numerous locations including: L neck, R frontal scalp, L vertex, L nasal bridge and R mid helix requiring previous Mohs procedures. Required a hinge flap at one point to cover exposed bone on his scalp region s/p Mohs surgery last year. Met sepsis criteria on admission 2/2 fevers, RR>20, HR>90 & L scalp+neck cellulitis. Lactate negative. S/p 2L NSS in ED. IV vancomycin + cefepime started in ED. Procalcitonin 0.81; Blood cultures drawn with NGTD. Head CT --> L scalp cellulitis, no evidence of abscess or intracranial abnormalities. Soft tissue neck CT --> Subcutaneous and deep tissue edema within the lateral left neck suggestive of cellulitis without abscess. Enlarged L-sided cervical chain lymph nodes which are nonspecific - findings can be reevaluated with a 1- month follow-up ultrasound. -Continue IV vancomycin + cefepime for now. Follow blood cultures, NGTD. -Wound cx scalp growing staph aureus; awaiting final C/S; continue IV Van and Cefepime -MRSA negative -WOCN consulted; vasoline + Gauze -PRN pain control with Percocet. Gabapentin started on 08/27 helping with pain -General surgery consulted; appreciate recommendations. No surgical intervention at this time. -Infectious Disease consulted for abx guidance. Awaiting consult. Acute Urinary Retention: Notes increased urinary frequency however patient feels as if he is not emptying his bladder completely. PVR 400mL in ED; Ward placed. Closely monitor I&Os. Original UA negative for infection Hematuria noted in ward; suspect traumatic insertion along with thrombocytopenia. UA neg. Urine cx pending. Hematuria noted in ward bag; likely secondary to traumatic catheter insertion and thrombocytopenia; will monitor. Awaiting urine culture;pending As this has been persistent x2 days; will order KUB. Given CLL history will order PSA. No PSA baseline in [facility] as OPT Urology consult placed Immunocompromised State Chronic Lymphocytic Leukemia (CLL): Thrombocytopenia: Follows with Dr. Jamil. He reports he was on Leukeran for his CLL however he stopped this medication last Friday after it was thought this medication was causing skin lesions, notably the one of his scalp region which was biopsied on Friday. Baseline WBC count ~20-30k per chart review. Hold Leukeran. Plt level 98; baseline 90-100. Hold ASA for now given continued hematuria. Has an appt with Dr. Jamil scheduled for 09/06/24 Hypokalemia: RESOLVED -K+ 2.9 on admission. Today K+ 3.8; trend in AM Hypomagnesemia: RESOLVED -Serum Mg+ 1.6 in ED; received 2G Mg+ in ED. -Mg+ 2.0 on 08/28 -Can continue home mag supplement. Elevated Troponin - Suspect Demand Ischemia ISO Active Infection: Resolved Initial troponin 75.4-->55.5; suspect demand ischemia ISO infection. Appears troponin is chronically elevated at baseline per chart review. EKG reviewed and reassuring, without prolonged Qtc. EKG with chest pain PRN. Entero-/Rhinovirus Positive on Respiratory BioFire Panel: He was on 2L NC supplemental O2 following COVID infection back in February 2022 but was able to come off of it. Not currently using any supplemental O2. Aspiration precautions. CXR negative. Droplet precautions for now Other Chronic Medical Conditions: * HTN - Can continue metoprolol succinate. Initially, Losarten held due to hypotension. Resolved. Restarted Losarten on 08/28 * COPD/ILD - Continue Trelegy, Singulair and PRN albuterol inhaler. Breathing status at baseline as per above. No evidence of acute exacerbation. * Gout - Continue allopurinol. Disposition: Initially in PCU; downgraded on 08/28 to Med/Tele Code Status: DNR/DNI PCP: Vincent Slaughter MD DVT Prophylaxis: SCDs/TEDs for now ISO thrombocytopenia. Hold ASA for now given thrombocytopenia/bleeding. I spent a total of 57 minutes coordinating, documenting, and providing care for this patient excluding time spent in the performance of separately billed services or time spent by another provider/QHP. This included personally reviewing all current laboratories and imaging studies, medical reconciliation, outpatient chart review and discussion with specialists. Admission and Anticipated Discharge Date Admission Date: August 26, 2024 Supervising Physician Co-Signing Physician Notes Attending Addendum: Case reviewed with the advanced practitioner. I have personally performed a history and physical examination on the patient. I have reviewed the advanced practitioner's documentation on the date of service referenced in note, and I agree with, and take responsibility for the plan of care. please refer to her notes for full details patient seen and examined, records reviewed by myself as well diagnoses and plan of care as per advanced practitioner's notes I spent a total of 25 minutes coordinating, documenting, and providing care for this patient, excluding time spent in the performance of separately billed services or time spent by another provider/QHP. Conner Batista MD Subjective Pt is a pleasant and talkative gentleman that was standing next to his hospital bed in no apparent distress during my encounter. Pt denies chest pain, SOB, dizziness, N/V/D. Denies CVA tenderness or abdominal pain. Scalp discomfort improving, less painful. Ward remains inserted; reports penile meatus burning, still has hematuria, some clots in bag, sediment in ward tubing See below for plan of care. Review of Systems Review of Systems: Neuro: (-) Falls, trauma, slurred speech HEENT: (-) GARCIA, dizziness, dysphagia, visual or auditory changes CV: (-) CP, palpitations, swelling Resp: (-) SOB GI: (-) appetite changes, N/V/D, bowel changes : (+) penile meatus irritation Skin: (-) rashes (+) excoriation/skin on top of scalp with (+) eschar improving Psych: (-) anxiety, depression Physical Exam Physical Exam: Neuro: AAOx4, PERRLA, no aphagia, memory changes, CNII-XII grossly intact HEENT: head normocephalic, moist mucus membranes CV: S1/S2, (-) M/G/R, (-) edema, cap refill < 3 seconds Resp: Lungs CTA in all enriquez. On RA GI: Abdomen S/NT/ND, Ax4 bowel sounds, (-) CVA tenderness Musculoskeletal: 5/5 B/L UE strength, 5/5 B/L LE strength. No gait disturbance Skin: (-) rashes , (+) scalp excoriation with eschar on top of head : indwelling ward catheter; blood tinged urine with clot presence Psych: euthymic mood Results & Data Results & Data Vital Signs (Past 12 Hours) Vital Signs Temp Pulse Pulse Resp BP BP Pulse Ox 08/29/24 03:15 36.8 C 62 16 139/74 93 08/28/24 22:45 37.3 C 69 16 108/56 L 93 08/28/24 22:12 65 08/28/24 19:39 36.8 C 68 16 147/74 H 96 O2 Del Method 08/29/24 03:15 Room Air 08/28/24 22:45 Room Air 08/28/24 22:12 08/28/24 19:39 Room Air Laboratory Results Short CBC 08/29/24 Range/Units 05:15 WBC 14.91 H (4.8-10.8) K/ul Hgb 9.2 L (14.0-18.0) g/dl Hct 27.6 L (42.0-52.0) % Plt Count 98 L (130-400) K/uL [facility] 08/29/24 05:15 Sodium 137 Potassium 3.8 Chloride 105 Carbon Dioxide 24 BUN 15 Creatinine 1.09 Glucose 93 Calcium 8.5 L (1) Sepsis Sepsis acute organ dysfunction status: unspecified Sepsis type: sepsis due to unspecified organism Qualified Code(s): A41.9 - Sepsis, unspecified organism
[2024-08-29] MEDS: POLYETHYLENE (MIRALAX) 17 GM PACK PO PRN (08:51)
--- NOTE | 2024-08-29 09:17 | Pharmacy Report ---
Pharmacy PK ABX Note - Date of Service August 29, 2024 - Assessment and Plan Assessment * 84 year old M receiving vancomycin and cefepime for treatment of scalp and neck cellulitis s/p recent scalp biopsy. * History of CLL and squamous cell carcinoma. * Culture: blood cultures NGTD. Scalp culture with S. aureus, sensitivities pending * SCr stable and near baseline Vancomycin * Trough of 7.6 mcg/mL associated with a therapeutic AUC, albeit in the lower end of the goal range * Due to noted continued fever yesterday (38C) and persistent WBC elevation (although trending down slowly), will slightly increase vancomycin to target the middle of the goal range instead Plan Vancomycin * Maintenance dose: increase to 1500 mg IV every 24 hours * Target AUC/MINGO of 400-600 mg/L.hr * Random level in AM 08/31 Pharmacy will continue to follow and will adjust dose/frequency as necessary. Thank you. Pharmacy has transitioned to AUC monitoring for vancomycin. AUC/MINGO is the preferred PK/PD target and is associated with decreased risk of nephrotoxicity compared to traditional trough targets.
--- NOTE | 2024-08-29 15:14 | XRay Report ---
INDICATION: Hematuria. TECHNIQUE: 2 views of the abdomen. COMPARISON: No relevant priors. FINDINGS: No dilated loops of bowel or air-fluid levels. No free air. Bilateral renal calculi measuring up to 5 mm. Phleboliths in the pelvis. No acute osseous or soft tissue abnormality. IMPRESSION: Nonobstructive bowel gas pattern. Bilateral renal calculi measuring up to 5 mm. Electronically signed by Oscar Knox 08-29-2024 3:14 PM
--- NOTE | 2024-08-29 18:02 | CT Scan Report ---
INDICATION: Urinary retention and hematuria. COMPARISON: No relevant priors available. TECHNIQUE: Axial CT images of the abdomen and pelvis were obtained without IV contrast administration. Coronal and sagittal reformations were reviewed. FINDINGS: Cardiomegaly. Small volume pericardial effusion. Subsegmental atelectasis in the lung bases. Hyperdense sludge in the gallbladder. The liver, spleen, pancreas and adrenal glands appear unremarkable. Multiple left renal calculi measuring up to 5 mm. Right renal calculus measuring 5 mm and 1 mm. Right renal cyst measuring 3.6 cm. No hydronephrosis. No evidence of bowel obstruction/colitis/appendicitis. No free air. No drainable fluid collection. Negative for abdominal aortic aneurysm. Prostate gland enlargement. Vera catheter decompresses the urinary bladder. Urinary bladder wall thickening. Air in the urinary bladder likely relates to instrumentation. Degenerative changes in the hips and spine. Postoperative changes in the lumbar spine. No acute osseous abnormality evident. IMPRESSION: 1. Bilateral renal calculi. No hydronephrosis. 2. Prostate gland enlargement. Vera catheter decompresses the urinary bladder. Urinary bladder wall thickening. Air in the urinary bladder likely relates to instrumentation. 3. Cardiomegaly. Small volume pericardial effusion. Electronically signed by Oscar Knox 08-29-2024 6:01 PM
[2024-08-29] MEDS: VANCOMYCIN HCL 1,500 MG in SODIUM CHLORIDE 0.9% 500 ML IV SCH (20:31)
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
[2024-08-30 07:26] LABS: Hematocrit (blood only) 27.8 % (42.0-52.0); Hemoglobin 9.1 g/dl (14.0-18.0); Mean Corpuscular Hemoglobin 30.7 pg (25.0-34.0); Mean Corpuscular Hgb Conc 32.7 g/dL (32.0-36.0); Mean Corpuscular Volume 93.9 fL (80.0-100.0); Mean Platelet Volume 9.8 fL (9.4-12.4); Platelet Count 108 K/uL (130-400); RDW Coefficient of Variation 13.3 % (11.5-14.5); RDW Standard Deviation 46.2 fL (36.4-46.3); Red Blood Count 2.96 M/uL (4.70-6.10); White Blood Count 11.23 K/ul (4.8-10.8)
[2024-08-30 07:42] LABS: BUN Creatinine Ratio 15.3 (10-20); Calcium 8.6 mg/dl (8.6-10.3); Creatinine Clr Calc Pharmacy 46.9 ml/min
--- NOTE | 2024-08-30 09:45 | Urology Progress Note ---
Date of Service August 30, 2024 Assessment & Plan (1) BPH associated with nocturia: (2) Acute urinary retention: (3) Elevated PSA: (4) Bilateral kidney stones: Plan: Follow-up of acute urinary retention, hematuria and elevated PSA. Patient afebrile and hemodynamically stable. Labs reviewedcreatinine 1.11, WBC 11.23, hemoglobin 9.1. PSA came back at 72.721 on 08/29/2024. Vera catheter currently in place for management of urinary retention. Retention likely secondary to enlarged prostate with obstructive issues at baseline with acute illness. He developed hematuria after catheter placement, possibly from traumatic insertion. Urine appears to be clearing. Can consider voiding trial prior to discharge, recommend replace catheter if he is unable to void after catheter removal. Patient will require follow-up with urology for further work-up of retention, hematuria and elevated PSAdiscussed with patient. Will outpatient follow-up with our service. will sign off, please contact our service with any additional questions or concerns. Admission and Anticipated Discharge Date Admission Date: August 26, 2024 Subjective Patient seen and examined at bedside this morning. He is awake and sitting up at the edge of the bed. No acute issues overnight. Reports some discomfort from catheter. Urine appears to be clearing. No fever or chills. Review of Systems Constitutional: as per Subjective / HPI Genitourinary: + as per Subjective / HPI Physical Exam Constitutional: no acute distress Respiratory: no respiratory distress and no labored breathing Skin: Bandage on the top of his scalp Neurologic: moves all extremities and awake Psychiatric: Orientation: alert and oriented x 3 Genitourinary: Vera draining yellow urine Results & Data Vital Signs (Past 12 Hours) Vital Signs Temp Pulse Pulse Resp BP BP Pulse Ox 08/30/24 07:43 60 08/30/24 07:31 08/30/24 07:21 37.0 C 59 L 18 154/80 H 96 08/30/24 03:19 36.7 C 69 18 143/84 H 93 08/29/24 22:56 36.8 C 68 18 121/68 94 08/29/24 22:09 72 O2 Del Method 08/30/24 07:43 08/30/24 07:31 Room Air 08/30/24 07:21 Room Air 08/30/24 03:19 Room Air 08/29/24 22:56 Room Air 08/29/24 22:09 PG Care Time/CCT Total # of Minutes Spent Total Time Spent with Patient: Total time spent is greater than 50% in coordination of care (as documented) at patient's floor/unit and/or counseling patient: Coding Level of Care Code 33712 SUB INP/OBS CARE 08/28MIN Diagnoses BPH associated with nocturia N40.1; R35.1 Acute urinary retention R33.8 Elevated PSA R97.20 Bilateral kidney stones N20.0
--- NOTE | 2024-08-30 09:53 | Hospitalist Progress Note ---
Date of Service August 30, 2024 Assessment & Plan (1) Sepsis: (2) Cellulitis of scalp: (3) Cellulitis of neck: (4) Hypokalemia: (5) Hypomagnesemia: (6) Elevated troponin: (7) Rhinovirus infection: (8) Chronic lymphocytic leukemia: (9) Acute urinary retention: Plan Luis M Tirado is an 84y/o M with PMHx significant for HLD, HTN, COPD, ILD, ascending aorta dilatation, PSVT, CHB s/p pacemaker placement, AVS s/p TAVR, CVA in 2006, CKD stage IIIa, macular degeneration of L eye, thrombocytopenia, CLL on Leukeran, chronic anemia and squamous cell carcinoma who presented to the ED for evaluation on 08/26/2024 secondary to fevers and chills x 3 days. Sepsis ISO L Scalp & Neck Cellulitis S/P Recent Scalp Biopsy: Improving underwent biopsy of scalp region 08/23/2024 (results outlined in previous notes) PMH of SCC in numerous locations including: L neck, R frontal scalp, L vertex, L nasal bridge and R mid helix requiring previous Mohs procedures. Required a hinge flap at one point to cover exposed bone on his scalp region s/p Mohs surgery last year. Met sepsis criteria on admission resuscitated and since resolved Head CT --> L scalp cellulitis, no evidence of abscess or intracranial abnormalities. Soft tissue neck CT --> Subcutaneous and deep tissue edema within the lateral left neck suggestive of cellulitis without abscess. Enlarged L-sided cervical chain lymph nodes which are nonspecific - findings can be reevaluated with a 1- month follow-up ultrasound. Currently pm IV vancomycin + cefepime for now. -BC NGTD, Wound culture MSSA -De escalate to once daily IV rocephin -Await formal ID consult for further discharge recs -WOCN consulted; vasoline + Gauze, f/u with DERM as outpt -PRN pain control with Percocet. Gabapentin started on 08/27 helping with pain -General surgery consulted; appreciate recommendations. No surgical intervention at this time. Acute Urinary Retention: Elevated PSA Hematuria Notes increased urinary frequency however patient feels as if he is not emptying his bladder completely. PVR 400mL in ED; Ward placed. Closely monitor I&Os. Original UA negative for infection Hematuria noted in ward; suspect traumatic insertion along with thrombocytopenia. UA neg. Urine cx pending. Hematuria noted in ward bag; likely secondary to traumatic catheter insertion and thrombocytopenia; will monitor. UC negative Urology consulted: continue ward cath, consider TOV prior to discharge, PSA elevated will need OP urology eval and likely cystoscopy, feel hematuria likely 2/2 severe BPH and traumatic cath Immunocompromised State Chronic Lymphocytic Leukemia (CLL): Thrombocytopenia: Follows with Dr. Jamil. He reports he was on Leukeran for his CLL however he sto pped this medication last Friday after it was thought this medication was causing skin lesions, notably the one of his scalp region which was biopsied on Friday. Baseline WBC count ~20-30k per chart review. Hold Leukeran. Plt level 98; baseline 90-100. Hold ASA for now given continued hematuria. Has an appt with Dr. Jamil scheduled for 09/06/24 Hypokalemia: RESOLVED resolved Hypomagnesemia: RESOLVED resolved Elevated Troponin - Suspect Demand Ischemia ISO Active Infection: Resolved Initial troponin 75.4-->55.5; suspect demand ischemia ISO infection. Appears troponin is chronically elevated at baseline per chart review. EKG reviewed and reassuring, without prolonged Qtc. Entero-/Rhinovirus Positive on Respiratory BioFire Panel: He was on 2L NC supplemental O2 following COVID infection back in February 2022 but was able to come off of it. Not currently using any supplemental O2. CXR negative, still with mild cough Droplet precautions for now Other Chronic Medical Conditions: * HTN - Can continue metoprolol succinate. Initially, Losartan held due to hypotension. Resolved. Restarted Losarten on 08/28 * COPD/ILD - Continue Trelegy, Singulair and PRN albuterol inhaler. Breathing status at baseline as per above. No evidence of acute exacerbation. * Gout - Continue allopurinol. 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 Hold ASA for now given thrombocytopenia/bleeding. I spent a total of 46 minutes coordinating, documenting, and providing care for this patient excluding time spent in the performance of separately billed services or time spent by another provider/QHP. This included personally reviewing all current laboratories and imaging studies, medical reconciliation, outpatient chart review and discussion with specialists. Admission and Anticipated Discharge Date Admission Date: August 26, 2024 Supervising Physician Co-Signing Physician Notes Attending Addendum: Case reviewed with the advanced practitioner. I have reviewed the advanced practitioner's documentation on the date of service referenced in note, and I agree with, and take responsibility for the plan of care. please refer to her notes for full details diagnoses and plan of care as per advanced practitioner's notes Conner Batista MD Subjective Pt seen in 255-2. F/U scalp cellulitis, culture growing MSSA. He is very talkative. Less interested in talking about his reason for hospital stay and more interested in his background working for the [employer]. He denies pain. He feels his urine is clearing up. He denies f/c/s, chest pain, sob, n/v. He is tolerating diet. He is up and ambulating with out difficulty. Review of Systems Review of Systems: All systems reviewed & are unremarkable except as noted in HPI & below Physical Exam Physical Exam: Gen: WD/WN, NAD, A&O x3 HEENT: Normocephalic, atraumatic, conjunctivae moist, sclerae anicteric, mucous membranes moist. Lung: normal BS, normal isp effort Heart: RRR Abdomen: Soft, NT, ND +BS x 4 Extremities: No edema Skin: Warm, + wound to superior aspect of scalp, dressing in place, cdi, wound picture noted in chart as well Results & Data Results & Data Vital Signs (Past 12 Hours) Vital Signs Temp Pulse Pulse Resp BP BP Pulse Ox 08/30/24 07:43 60 08/30/24 07:31 08/30/24 07:21 37.0 C 59 L 18 154/80 H 96 08/30/24 03:19 36.7 C 69 18 143/84 H 93 08/29/24 22:56 36.8 C 68 18 121/68 94 08/29/24 22:09 72 O2 Del Method 08/30/24 07:43 08/30/24 07:31 Room Air 08/30/24 07:21 Room Air 08/30/24 03:19 Room Air 08/29/24 22:56 Room Air 08/29/24 22:09 Laboratory Results Short CBC 08/30/24 Range/Units 06:46 WBC 11.23 H (4.8-10.8) K/ul Hgb 9.1 L (14.0-18.0) g/dl Hct 27.8 L (42.0-52.0) % Plt Count 108 L (130-400) K/uL BMP 08/30/24 06:46 Sodium 138 Potassium 4.0 Chloride 107 Carbon Dioxide 25 BUN 17 Creatinine 1.11 Glucose 95 Calcium 8.6 I have independently reviewed and interpreted patient's CBC, BMP Medications Administered Current Inpatient Medications Acetaminophen (Acetaminophen 325 Mg Tab) 650 mg PO Q4H PRN PRN Reason: Pain or Fever Stop: 09/25/24 13:00 Last Admin: 08/28/24 16:56 Dose: 650 mg Albuterol (Albuterol Hfa 8 Gm Inhaler) 2 puffs INH Q4R PRN PRN Reason: Shortness Of Breath Or Wheezin Stop: 09/25/24 12:16 Allopurinol (Allopurinol 100 Mg Tab) 100 mg PO QAM COMPA Stop: 09/26/24 08:59 Last Admin: 08/30/24 07:56 Dose: 100 mg Aspirin (Aspirin 81 Mg Ectab) 81 mg PO DAILY COMPA Stop: 09/26/24 08:59 Last Admin: 08/27/24 07:56 Dose: 81 mg Fluticasone Furoate (Fluticasone Furoate 200mcg 14 Puffs/Inhaler) 1 puffs INH DAILY COMPA Stop: 09/26/24 08:59 Last Admin: 08/30/24 07:56 Dose: 1 puffs Gabapentin (Gabapentin 100 Mg Cap) 100 mg PO BID COMPA Stop: 09/26/24 11:29 Last Admin: 08/30/24 07:56 Dose: 100 mg Lactobacillus Acidophilus (Advanced Probiotic 625 Mg Capsule) 1,250 mg PO DAILY COMPA Stop: 09/25/24 13:00 Last Admin: 08/30/24 07:56 Dose: 1,250 mg Losartan Potassium (Losartan Potassium 50 Mg Tab) 50 mg PO QAM COMPA Stop: 09/27/24 08:59 Last Admin: 08/30/24 07:56 Dose: 50 mg Magnesium Hydroxide (Magnesium Hydroxide Susp 30 Ml Udc) 30 ml PO Q12H PRN PRN Reason: Constipation Stop: 09/25/24 13:00 Magnesium Oxide (Magnesium Oxide 400 Mg Tab) 400 mg PO QAM [facility] Stop: 09/26/24 08:59 Last Admin: 08/30/24 07:56 Dose: 400 mg Metoprolol Succinate (Metoprolol Succ 25mg Ext Rel Tab) 25 mg PO BID [facility] Stop: 09/27/24 20:59 Last Admin: 08/30/24 07:56 Dose: 25 mg Montelukast Sodium (Montelukast Sodium 10 Mg Tablet) 10 mg PO DAILY [facility] Stop: 09/26/24 08:59 Last Admin: 08/30/24 07:56 Dose: 10 mg Ondansetron HCl (Ondansetron Inj 2 Mg/Ml 2 Ml Vial) 4 mg IV Q6H PRN PRN Reason: Nausea Stop: 09/25/24 13:00 Oxycodone/Acetaminophen (Oxycodone/Acetaminophen 5mg/325mg Tab) 1 tab PO Q6H PRN PRN Reason: Mod-Sev Pain (Scale 4-10) Stop: 09/09/24 12:17 Last Admin: 08/29/24 20:26 Dose: 1 tab Polyethylene Glycol (Polyethylene (Miralax) 17 Gm Pack) 17 gm PO DAILY PRN PRN Reason: Constipation Stop: 09/25/24 13:00 Last Admin: 08/29/24 08:51 Dose: 17 gm Sodium Chloride (Sodium Chloride 0.65% Na Soln 45 Ml ([place])) 2 sprays NA TID PRN PRN Reason: dry nasal passages Stop: 09/25/24 12:16 Umeclidinium/Vilanterol (Umeclidinium/Vilanterol 62.5/25mcg 7 Puffs/Inhaler) 1 puffs INH DAILY [facility] Stop: 09/26/24 08:59 Last Admin: 08/30/24 07:56 Dose: 1 puffs (1) Sepsis Sepsis acute organ dysfunction status: unspecified Sepsis type: sepsis due to unspecified organism Qualified Code(s): A41.9 - Sepsis, unspecified organism
[2024-08-30] MEDS: cefTRIAXone SODIUM 2,000 MG/50 ML BAG IV SCH (10:25)
[2024-08-31 08:27] VITALS: PULSE 69; O2SAT 97
--- NOTE | 2024-08-31 10:19 | Hospitalist Progress Note ---
Date of Service August 31, 2024 Assessment & Plan (1) Sepsis: (2) Cellulitis of scalp: (3) Cellulitis of neck: (4) Hypokalemia: (5) Hypomagnesemia: (6) Elevated troponin: (7) Rhinovirus infection: (8) Chronic lymphocytic leukemia: (9) Acute urinary retention: Plan Luis M Tirado is an 84y/o M with PMHx significant for HLD, HTN, COPD, ILD, ascending aorta dilatation, PSVT, CHB s/p pacemaker placement, AVS s/p TAVR, CVA in 2006, CKD stage IIIa, macular degeneration of L eye, thrombocytopenia, CLL on Leukeran, chronic anemia and squamous cell carcinoma who presented to the ED for evaluation on 08/26/2024 secondary to fevers and chills x 3 days. Sepsis ISO L Scalp & Neck Cellulitis S/P Recent Scalp Biopsy: Improving underwent biopsy of scalp region 08/23/2024 (results outlined in previous notes) PMH of SCC in numerous locations including: L neck, R frontal scalp, L vertex, L nasal bridge and R mid helix requiring previous Mohs procedures. Required a hinge flap at one point to cover exposed bone on his scalp region s/p Mohs surgery last year. Met sepsis criteria on admission resuscitated and since resolved Head CT --> L scalp cellulitis, no evidence of abscess or intracranial abnormalities. Soft tissue neck CT --> Subcutaneous and deep tissue edema within the lateral left neck suggestive of cellulitis without abscess. Enlarged L-sided cervical chain lymph nodes which are nonspecific - findings can be reevaluated with a 1- month follow-up ultrasound. -BC NGTD, Wound culture MSSA -De escalate to once daily IV rocephin -Await formal ID consult for further discharge recs -WOCN consulted; vasoline + Gauze, f/u with [facility]ER[facility] as outpt -PRN pain control with Percocet. Gabapentin started on 08/27 pt states he hasn't noticed a difference and denies any head pain, will d/c to reduce pill burden -General surgery consulted; appreciate recommendations. No surgical intervention at this time. Acute Urinary Retention: Elevated PSA Hematuria Notes increased urinary frequency however patient feels as if he is not emptying his bladder completely. PVR 400mL in ED; Ward placed. Closely monitor I&Os. Original UA negative for infection Hematuria noted in ward; suspect traumatic insertion along with thrombocytopenia. UA neg. Urine cx pending. Hematuria noted in ward bag; likely secondary to traumatic catheter insertion and thrombocytopenia; will monitor. UC negative Urology consulted: continue ward cath, consider TOV prior to discharge, PSA elevated will need OP urology eval and likely cystoscopy, feel hematuria likely 2/2 severe BPH and traumatic cath Immunocompromised State Chronic Lymphocytic Leukemia (CLL): Thrombocytopenia: Follows with Dr. Jaiml. He reports he was on Leukeran for his CLL however he stopped this medication last Friday after it was thought this medication was causing skin lesions, notably the one of his scalp region which was biopsied on Friday. Baseline WBC count ~20-30k per chart review. Hold Leukeran. Plt level 98; baseline 90-100. Hold ASA for now given continued hematuria. Has an appt with Dr. Jamil scheduled for 09/06/24 Hypokalemia: RESOLVED resolved Hypomagnesemia: RESOLVED resolved Elevated Troponin - Suspect Demand Ischemia ISO Active Infection: Resolved Initial troponin 75.4-->55.5; suspect demand ischemia ISO infection. Appears troponin is chronically elevated at baseline per chart review. EKG reviewed and reassuring, without prolonged Qtc. Entero-/Rhinovirus Positive on Respiratory BioFire Panel: He was on 2L NC supplemental O2 following COVID infection back in February 2022 but was able to come off of it. Not currently using any supplemental O2. CXR negative, still with mild cough Droplet precautions for now Other Chronic Medical Conditions: * HTN - Can continue metoprolol succinate. Initially, Losartan held due to hypotension. Resolved. Restarted Losartan on 08/28 * COPD/ILD - Continue Trelegy, Singulair and PRN albuterol inhaler. Breathing status at baseline as per above. No evidence of acute exacerbation. * Gout - Continue allopurinol. Disposition: awaiting ID input, if able to d/c on oral antibiotics likely d/c later today Code Status: DNR/DNI PCP: Vincent Slaughter MD DVT Prophylaxis: SCDs/TEDs for now ISO thrombocytopenia. Hold ASA for now given thrombocytopenia/bleeding. I spent a total of 44 minutes coordinating, documenting, and providing care for this patient excluding time spent in the performance of separately billed servi sarai or time spent by another provider/QHP. This included personally reviewing all current laboratories and imaging studies, medical reconciliation, outpatient chart review and discussion with specialists. Admission and Anticipated Discharge Date Admission Date: August 26, 2024 Subjective Pt seen in 255-2. F/U scalp cellulitis, culture growing MSSA. He complains of pain around catheter site. Denies f/c/s, chest pain, sob, n/v/d. He is tolerating his diet. He has not acute concerns other than when he will be discharged. Review of Systems Review of Systems: All systems reviewed & are unremarkable except as noted in HPI & below Physical Exam Physical Exam: Gen: WD/WN, NAD, A&O x3 HEENT: Normocephalic, atraumatic, conjunctivae moist, sclerae anicteric, mucous membranes moist. Lung: normal BS, normal isp effort Heart: RRR Abdomen: Soft, NT, ND +BS x 4 Extremities: No edema Skin: Warm, + wound to superior aspect of scalp, dressing in place, cdi, wound picture noted in chart as well : +cath with yellow urine Results & Data Results & Data Vital Signs (Past 12 Hours) Vital Signs Temp Pulse Resp BP Pulse Ox O2 Del Method 08/31/24 08:24 36.7 C 69 16 149/69 H 97 Room Air Medications Administered Current Inpatient Medications Acetaminophen (Acetaminophen 325 Mg Tab) 650 mg PO Q4H PRN PRN Reason: Pain or Fever Stop: 09/25/24 13:00 Last Admin: 08/28/24 16:56 Dose: 650 mg Albuterol (Albuterol Hfa 8 Gm Inhaler) 2 puffs INH Q4R PRN PRN Reason: Shortness Of Breath Or Wheezin Stop: 09/25/24 12:16 Allopurinol (Allopurinol 100 Mg Tab) 100 mg PO QAM COMPA Stop: 09/26/24 08:59 Last Admin: 08/31/24 09:01 Dose: 100 mg Aspirin (Aspirin 81 Mg Ectab) 81 mg PO DAILY COMPA Stop: 09/26/24 08:59 Last Admin: 08/27/24 07:56 Dose: 81 mg Fluticasone Furoate (Fluticasone Furoate 200mcg 14 Puffs/Inhaler) 1 puffs INH DAILY COMPA Stop: 09/26/24 08:59 Last Admin: 08/31/24 09:00 Dose: 1 puffs Gabapentin (Gabapentin 100 Mg Cap) 100 mg PO BID [facility] Stop: 09/26/24 11:29 Last Admin: 08/31/24 09:01 Dose: 100 mg Ceftriaxone Sodium (Rocephin) 2,000 mg in 50 mls @ 100 mls/hr IV DAILY [facility] Stop: 09/06/24 09:59 Last Infusion: 08/31/24 09:41 Dose: Infused Lactobacillus Acidophilus (Advanced Probiotic 625 Mg Capsule) 1,250 mg PO DAILY [facility] Stop: 09/25/24 13:00 Last Admin: 08/31/24 09:01 Dose: 1,250 mg Losartan Potassium (Losartan Potassium 50 Mg Tab) 50 mg PO QAM [facility] Stop: 09/27/24 08:59 Last Admin: 08/31/24 09:01 Dose: 50 mg Magnesium Hydroxide (Magnesium Hydroxide Susp 30 Ml Udc) 30 ml PO Q12H PRN PRN Reason: Constipation Stop: 09/25/24 13:00 Magnesium Oxide (Magnesium Oxide 400 Mg Tab) [facility] [place] Stop: 09/26/24 08:59 Last Admin: 08/31/24 09:02 Dose: 400 mg Metoprolol Succinate (Metoprolol Succ 25mg Ext Rel Tab) 25 mg PO BID [facility] Stop: 09/27/24 20:59 Last Admin: 08/31/24 09:02 Dose: 25 mg Montelukast Sodium (Montelukast Sodium 10 Mg Tablet) 10 mg PO DAILY [facility] Stop: 09/26/24 08:59 Last Admin: 08/31/24 09:01 Dose: 10 mg Ondansetron HCl (Ondansetron Inj 2 Mg/Ml 2 Ml Vial) 4 mg IV Q6H PRN PRN Reason: Nausea Stop: 09/25/24 13:00 Oxycodone/Acetaminophen (Oxycodone/Acetaminophen 5mg/325mg Tab) 1 tab PO Q6H PRN PRN Reason: Mod-Sev Pain (Scale 4-10) Stop: 09/09/24 12:17 Last Admin: 08/29/24 20:26 Dose: 1 tab Polyethylene Glycol (Polyethylene (Miralax) 17 Gm Pack) 17 gm PO DAILY PRN PRN Reason: Constipation Stop: 09/25/24 13:00 Last Admin: 08/29/24 08:51 Dose: 17 gm Sodium Chloride (Sodium Chloride 0.65% Na Soln 45 Ml ([place])) 2 sprays NA TID PRN PRN Reason: dry nasal passages Stop: 09/25/24 12:16 Umeclidinium/Vilanterol (Umeclidinium/Vilanterol 62.5/25mcg 7 Puffs/Inhaler) 1 puffs INH DAILY [facility] Stop: 09/26/24 08:59 Last Admin: 08/31/24 08:59 Dose: 1 puffs (1) Sepsis Sepsis type: sepsis due to unspecified organism Sepsis acute organ dysfunction status: unspecified Qualified Code(s): A41.9 - Sepsis, unspecified organism
[2024-08-31 11:12] VITALS: BP 155/75; RESP 18; TEMP 97.9
--- NOTE | 2024-08-31 14:15 | Discharge Summary ---
Discharge Summary Date of Service August 31, 2024 Principal Dx & Hospital Course #1 = Principal Diagnosis (1) Sepsis: (2) Cellulitis of scalp: (3) Cellulitis of neck: (4) Hypokalemia: (5) Hypomagnesemia: (6) Elevated troponin: (7) Rhinovirus infection: (8) Chronic lymphocytic leukemia: (9) Acute urinary retention: Derek Tirado is an 84y/o M with PMHx significant for HLD, HTN, COPD, ILD, ascending aorta dilatation, PSVT, CHB s/p pacemaker placement, AVS s/p TAVR, CVA in 2006, CKD stage IIIa, macular degeneration of L eye, thrombocytopenia, CLL on Leukeran, chronic anemia and squamous cell carcinoma who presented to the ED for evaluation on 08/26/2024 secondary to fevers and chills x 3 days. Sepsis ISO L Scalp & Neck Cellulitis S/P Recent Scalp Biopsy: Improving underwent biopsy of scalp region 08/23/2024 (results outlined in previous notes) PMH of SCC in numerous locations including: L neck, R frontal scalp, L vertex, L nasal bridge and R mid helix requiring previous Mohs procedures. Required a hinge flap at one point to cover exposed bone on his scalp region s/p Mohs surgery last year. Met sepsis criteria on admission resuscitated and since resolved Head CT --> L scalp cellulitis, no evidence of abscess or intracranial abnormalities. Soft tissue neck CT --> Subcutaneous and deep tissue edema within the lateral left neck suggestive of cellulitis without abscess. Enlarged L-sided cervical chain lymph nodes which are nonspecific - findings can be reevaluated with a 1- month follow-up ultrasound. -BC NGTD, Wound culture MSSA -He was seen and evaluated by ID who recommends d/c on Linezolid 600mg by mouth twice daily for a total of 14 days -WOCN consulted; vasoline + Gauze, f/u with [facility]ER[facility] as outpt Acute Urinary Retention: Elevated PSA Hematuria Notes increased urinary frequency however patient feels as if he is not emptying his bladder completely. PVR 400mL in ED; Ward placed. Closely monitor I&Os. Original UA negative for infection Hematuria noted in ward; suspect traumatic insertion along with thrombocytopenia. Urology consulted: continue ward cath, PSA very elevated @ 72 ng/ml, will need OP urology eval for TOV and likely cystoscopy, feel hematuria likely 2/2 severe BPH and traumatic cath Immunocompromised State Chronic Lymphocytic Leukemia (CLL): Thrombocytopenia: Follows with Dr. Jamil. He reports he was on Leukeran for his CLL however he stopped this medication last Friday after it was thought this medication was causing skin lesions, notably the one of his scalp region which was biopsied on Friday. Baseline WBC count ~20-30k per chart review. Hold Leukeran. Plt level 98; baseline 90-100. Hold ASA for now givenhematuria. Has an appt with Dr. Jamil scheduled for 09/06/24 Hypokalemia: RESOLVED resolved Hypomagnesemia: RESOLVED resolved Elevated Troponin - Suspect Demand Ischemia ISO Active Infection: Resolved Initial troponin 75.4-->55.5; suspect demand ischemia ISO infection. Appears troponin is chronically elevated at baseline per chart review. EKG reviewed and reassuring, without prolonged Qtc. Entero-/Rhinovirus Positive on Respiratory BioFire Panel: He was on 2L NC supplemental O2 following COVID infection back in February 2022 but was able to come off of it. Not currently using any supplemental O2. CXR negative, still with mild cough Droplet precautions for now Notes For Next Care Provider Repeat CBC, CMP after completion of antibiotics. Pt with chronic thrombocytopenia. He had hematuria with ward insertion. His ASA was placed on hold until after his lab work was re checked post antibiotics. He is okay to resume aspirin if there are no signs of bleeding and plt count is stable Recommend L neck ultrasound to evaluate for previously enlarged L cervical chain lymph nodes in 2-3 weeks. Please ensure pt has follow up with [facility] or [facility]. He has a PSA of 72, CT abd/pelvis with b/l renal calculi and severe prostate enlargement Medication Changes From Visit Linezolid 600mg by mouth twice daily for additional 10 days (Antibiotic). Next dose is due evening of 08/31/24. Lactobacillus, 1 capsule, by mouth once daily. This is to promote gut health while on antibiotic therapy. Next dose is due 09/01/24. Continue all other home medications. HOLD Aspirin for now due to low platelets and previous bleeding in urinary catheter. It is recommended you hold off on this medication until you have repeat blood work after your completion of antibiotics. Admission HPI Per Admitting Provider Luis M Tirado is an 84y/o M with PMHx significant for HLD, HTN, COPD, ILD, ascending aorta dilatation, PSVT, CHB s/p pacemaker placement, AVS s/p TAVR, CVA in 2006, CKD stage IIIa, macular degeneration of L eye, thrombocytopenia, CLL on Leukeran, chronic anemia and squamous cell carcinoma who presented to the ED for evaluation on 08/26/2024 secondary to fevers and chills x 3 days. History obt ained from the patient, patient's son at bedside and associated chart review. Patient seen at bedside in the ED with Dr. Perdomo. Patient recently underwent biopsy of a lesion on his L scalp region this past 08/23/2024, performed by Dr. Candace Aguilar [[facility]]. Patient has a significant history of numerous squamous cell carcinoma in numerous locations including his L neck, R frontal scalp, L vertex, L nasal bridge and R mid helix requiring previous Mohs procedures. At one point, patient required a hinge flap to cover exposed bone on his scalp region s/p Mohs surgery last year. Today, patient reports that he has been experiencing intermittent fevers and chills x 3 days. He notes significant pain in his L scalp region that radiates down into his L neck region. He has been unable to apply much region therefore he has not been sleeping well since the biopsy on Friday. He has been taking Tylenol at home without much improvement. He was quite sweaty this morning but that has since resolved. Denies any abdominal pain but endorses he had some diarrhea about 2-3 days ago, this has since resolved. No nausea/vomiting. He denies any chest pain. Mentions he was on 2L NC supplemental O2 following COVID infection back in February 2022 but was able to come off of it. He is not currently using any supplemental O2. He has had a chronic cough since he had COVID back then which is typically productive of white-colored sputum. Feels his breathing is at baseline. He reports he was on Leukeran for his CLL however he stopped this medication last Friday after it was thought this medication was causing skin lesions, notably the one of his scalp region which was biopsied on Friday. He follows with Dr. Jamil for his CLL. He does note he has been hydrating well however his appetite has been reduced as of lately since these fevers and chills began. He notes increased urinary frequency however feels he as if he is not emptying his bladder completely. Initial laboratory evaluation notes WBC 27k - appears to be around baseline (WBC ~20-30k since March 2024 ISO CLL), Hgb 10.9 (chronic anemia; baseline Hgb ~9- 12), K+ 2.9, mag 1.6 and initial troponin 75.4. UA without evidence of infection. Respiratory BioFire panel positive for entero-/rhinovirus. CXR negative for acute finding; notes cardiomegaly with chronic ILD. He has been relatively hypotensive in the ED. Initial BPs in the 90s/50s; have since improved to 110s/60s s/p 1L NSS at the time of our evaluation. HR was in the 90s but has since improved to the 70s. He has been transiently tachypneic but again denies any SOB and CXR is reassuring. Head CT with and without contrast reveals L scalp cellulitis, no evidence of abscess or intracranial abnormalities. Soft tissue neck CT shows subcutaneous and deep tissue edema within the lateral left neck suggestive of cellulitis without abscess. IV vancomycin + cefepime started in the ED. Soft tissue neck CT also notes enlarged L-sided cervical chain lymph nodes which are nonspecific - findings can be reevaluated with a 1-month follow-up ultrasound. Admission Exam Per Admitting Provider Vitals signs as noted above General Appearance:Moderately built and nourished, no apparent distress Head: normocephalic, Atraumatic,+ Scalp surgical wound Eyes: normal inspection, EOMI, R decreased vision--chronic Neck: supple, Trachea midline Respiratory/Chest: Decreased breath sounds, CTA, No accessory muscle use,+ Pacer Cardiovascular: S1, S2, + murmur Abdomen/GI:Soft, Non tender, Bowel sounds present Extremities/Musculoskeletal:normal inspection, no edema Neurologic/Psych:AAOX3, +decreased hearing, grossly no focal neurological deficits Skin: normal color, warm Discharge Exam Gen: WD/WN, NAD, A&O x3 HEENT: Normocephalic, atraumatic, conjunctivae moist, sclerae anicteric, mucous membranes moist. Lung: normal BS, normal isp effort Heart: RRR Abdomen: Soft, NT, ND +BS x 4 Extremities: No edema Skin: Warm, + wound to superior aspect of scalp, dressing in place, cdi, wound picture noted in chart as well : +cath with yellow urine Updated Medication List Medication Instructions Recorded Confirmed Type aspirin 81 mg tablet,delayed 81 mg PO DAILY 04/29/19 08/26/24 History release albuterol sulfate 90 mcg/actuation 2 puff inhalation Q4 PRN Shortness 01/20/22 08/26/24 History aerosol inhaler Of Breath Or Wheezing allopurinol 100 mg tablet 100 mg PO QAM 01/20/22 08/26/24 History chlorambucil 2 mg tablet (Leukeran) 2 mg PO DAILY 01/20/22 08/26/24 History oxycodone-acetaminophen 5 mg-325 1 tab PO DIRECTED PRN Pain 01/20/22 08/26/24 History mg tablet (Percocet) magnesium oxide 400 mg (241.3 mg 400 mg PO QAM #30 tabs 02/18/22 08/26/24 Rx magnesium) tablet metoprolol succinate 25 mg 25 mg PO BID #60 tabs 02/18/22 08/26/24 Rx tablet,extended release 24 hr sodium chloride 0.65 % nasal spray 2 spray NA TID PRN dry nasal 02/18/22 08/26/24 Rx aerosol (Saline Mist) passages #45 mL fluticasone fur. 200 mcg-umeclid 1 inh inhalation DAILY 08/26/24 08/26/24 History 62.5 mcg-vilant 25 mcg inhalat.powder (Trelegy Ellipta) losartan 25 mg tablet 50 mg PO QAM 08/26/24 08/26/24 History montelukast 10 mg tablet 10 mg PO DAILY 08/26/24 08/26/24 History L.acidop,casei,lactis,rham-B.lact,nikki 1 cap PO DAILY 14 days #14 caps 08/31/24 Rx 625 mg (10 billion cell) capsule (Advanced Probiotic) linezolid 600 mg tablet 600 mg PO BID 10 days #20 tabs 08/31/24 Rx Hospital Stay Data Consultations 08/26/24 11:14 ED Decision to Admit Stat 08/27/24 08:27 Consult Infectious Diseases Routine 08/27/24 11:22 Consult General Surgery Routine 08/29/24 13:42 Consult Urology Routine Diagnostic Imagining Performed Chest X-Ray 08/26/24 08:47 XR chest 1V portable HISTORY: 84 years-old Male Chest pain, nonspecific COMPARISON: 01/31/2022 TECHNIQUE: AP view the chest FINDINGS: Cardiac silhouette is enlarged. Aortic valvular endograft. Left subclavian pacer. Chronic interstitial coarsening without pneumothorax, pleural effusion or overt pulmonary edema. Left shoulder arthroplasty. 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 Numerous punctate metallic density shrapnel foci of the chest redemonstrated. IMPRESSION: 1. Cardiomegaly with chronic interstitial lung disease. 2. No acute process of the chest identified. ACT 112: Negative or not required by law. The above report was generated using voice recognition software. It may contain grammatical, syntax or spelling errors. Electronically signed by: Isael Erickson M.D. 08/26/2024 9:[address] 08/26/24 10:47 CT head/brain wo con CLINICAL HISTORY: scalp/left neck cellulitis/s/p Mohs. TECHNIQUE: Multiple axial CT images of the head were obtained without contrast. A dose lowering technique was utilized adhering to the principles of ALARA. CT DOSE: 1700 COMPARISON: None FINDINGS: No intracranial hemorrhage seen. No mass effect, midline shift, or hydrocephalus. There is mild stranding in the left parietal scalp consistent with given history of cellulitis. No focal abscess seen in this region. No skull fracture. No evidence of osteomyelitis. There is mucosal thickening and fluid in the left frontal sinus consistent with sinusitis. Otherwise the visualized paranasal sinuses and mastoid air cells are clear. IMPRESSION: 1. No acute intracranial findings. 2. Cellulitis at the left scalp without evidence of focal soft tissue abscess. ACT 112: Negative or not required by law. The above report was generated using voice recognition software. It may contain grammatical, syntax or spelling errors. Electronically signed by: Keshawn Middleton M.D. 08/26/2024 11:24 AM Soft Tissue Neck CT 08/26/24 10:47 CT soft tissue neck w con HISTORY: 84 years-old Male scalp/left neck cellulitis/s/p Mohs reported soft tissue infection of the left neck and scalp COMPARISON: Head CT of same day, CT chest 02/05/2022 TECHNIQUE: Multiple axial CT images of the chest were obtained with IV contrast. A dose lowering technique was used consistent with the principals of EMMETT. FINDINGS: Head CT dictated separately. Atherosclerosis of the carotid arteries. There is approximately 50% stenosis involving the proximal right ICA. Left subclavian pacer. Unremarkable orbits. Patent airway. Moderate enlargement of the lingual tonsils. Unremarkable appearance of the glottis and subglottic airway. Thyroid is within normal limits. Subcutaneous and deep tissue edema noted within the lateral left neck. No fluid collection. Enlarged anterior and posterior cervical chain lymph nodes on the left measure up to 1.3 cm in short axis. Prominent subcentimeter right-sided cervical chain lymph nodes are also noted. Moderate to severe mucosal thickening within the left frontal sinus. Mastoid air cells and middle ear cavities appear clear. Degenerative changes of the spine. Groundglass densities of the lung apices suggestive of scarring/atelectasis. IMPRESSION: 1. Subcutaneous and deep tissue edema and left back suggestive of cellulitis without abscess. 2. Enlarged left-sided cervical chain lymph nodes are nonspecific. These fin dings could be evaluated with a one-month follow-up ultrasound. 3. Head CT dictated separately. ACT 112: Negative or not required by law. The above report was generated using voice recognition software. It may contain grammatical, syntax or spelling errors. Electronically signed by: Isael Erickson M.D. 08/26/2024 11:[address] 08/26/24 10:50 CT head/brain w con CLINICAL HISTORY: scalp/left neck cellulitis/s/p Mohs TECHNIQUE: Contiguous axial CT images of the head from the base of the skull to the vertex before and after intravenous administration of IV contrast and submitted for interpretation. Automated dose lowering techniques and/or adjustment according to patient size were utilized for this examination. COMPARISON: None available at the time of this dictation. Findings: The ventricles, basal cisterns, and cerebral sulci are normal. There is no acute intracranial hemorrhage or evidence of acute territorial infarction. Neither mass effect, shift of the midline structures, nor abnormal extra-axial fluid collections are shown. Frontal sinus thickening is seen. The orbits appear normal. There are no acute fractures of the calvaria. Scalp swelling is seen in the vertex and left sided soft tissues. No drainable fluid collection is seen. Impression: Left scalp cellulitis without drainable fluid collection. No intracranial abnormalities. ACT 112: Negative or not required by law. Electronically signed by: Alton Covington M.D. 08/26/2024 11:36 AM KUB X-Ray 08/29/24 13:18 INDICATION: Hematuria. TECHNIQUE: 2 views of the abdomen. COMPARISON: No relevant priors. FINDINGS: No dilated loops of bowel or air-fluid levels. No free air. Bilateral renal calculi measuring up to 5 mm. Phleboliths in the pelvis. No acute osseous or soft tissue abnormality. IMPRESSION: Nonobstructive bowel gas pattern. Bilateral renal calculi measuring up to 5 mm. Electronically signed by Oscar Knox 08-29-2024 3:14 PM Abdomen/Pelvis CT 08/29/24 16:51 INDICATION: Urinary retention and hematuria. COMPARISON: No relevant priors available. TECHNIQUE: Axial CT images of the abdomen and pelvis were obtained without IV contrast administration. Coronal and sagittal reformations were reviewed. FINDINGS: Cardiomegaly. Small volume pericardial effusion. Subsegmental atelectasis in the lung bases. Hyperdense sludge in the gallbladder. The liver, spleen, pancreas and adrenal glands appear unremarkable. Multiple left renal calculi measuring up to 5 mm. Right renal calculus measuring 5 mm and 1 mm. Right renal cyst measuring 3.6 cm. No hydronephrosis. No evidence of bowel obstruction/colitis/appendicitis. No free air. No drainable fluid collection. Negative for abdominal aortic aneurysm. Prostate gland enlargement. Ward catheter decompresses the urinary bladder. Urinary bladder wall thickening. Air in the urinary bladder likely relates to instrumentation. Degenerative changes in the hips and spine. Postoperative changes in the lumbar spine. No acute osseous abnormality evident. IMPRESSION: 1. Bilateral renal calculi. No hydronephrosis. 2. Prostate gland enlargement. Ward catheter decompresses the urinary bladder. Urinary bladder wall thickening. Air in the urinary bladder likely relates to instrumentation. 3. Cardiomegaly. Small volume pericardial effusion. Electronically signed by Oscar Knox 08-29-2024 6:01 PM Pending Results Patient Have Any Pending Studies at Discharge: No Discharge Instructions Given to Patient (Per Discharging Provider) MEDICATION CHANGES: Linezolid 600mg by mouth twice daily for additional 10 days (Antibiotic). Next dose is due evening of 08/31/24. Lactobacillus, 1 capsule, by mouth once daily. This is to promote gut health while on antibiotic therapy. Next dose is due 09/01/24. Continue all other home medications. HOLD Aspirin for now due to low platelets and previous bleeding in urinary cath eter. It is recommended you hold off on this medication until you have repeat blood work after your completion of antibiotics. SUMMARY OF TEST RESULTS: You were admitted to hospital secondary to cellulitis of your scalp and neck. This was likely secondary to the biopsy that you had to have done. You were treated with antibiotics and you were seen by the infectious disease specialist. You are being sent home on oral antibiotics for additional 10 days. During your hospital stay you had difficulty urinating likely due to your underlying illness. CAT scan of your abdomen and pelvis showed that you had a very enlarged prostate and bilateral kidney stones. You had a ward catheter inserted and due to the enlarged prostate it resulted in some bloody urine. This has since cleared. You will need to follow up with urology as an outpatient along with dermatology. PENDING TEST RESULTS: None RECOMMENDATIONS FOR FOLLOW-UP: Please follow up with your Primary Care Provider as scheduled. It is very important that you see a urologist upon discharge with in one week to have your ward catheter removed. You were seen by Dr. Chamorro of [facility] urology while in the hospital. You can call their office to set up a follow up appointment OR if you prefer to utilize [facility] you can have Dr. Slaughter arrange this. Please have blood work drawn after you complete your antibiotic. It is recommended that you have a CBC and CMP done to monitor your blood counts, kidney/liver functions. Please continue to use vaseline and dry gauze to your scalp wound. Please follow up with Dermatology regarding your biopsy results and continued treatment of your wound. OTHER INSTRUCTIONS: Seek medical attention if you have: * temperature above 101 * chest pain or trouble breathing * abdominal pain, nausea, vomiting * diarrhea, dark stools or bloody stools * any unanswered questions or concerns Call 911 if symptoms are severe. Please take good care of yourself. It has been a pleasure taking care of you. Please take care of yourself. If you have any questions regarding your recent hospitalization please contact [facility] and request [facility] @ [phone]. Total Time Total Time Spent Total Time Spent (In Minutes): 45 minutes
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
== END 2024-08-31 16:33 | disposition home or self-care (01) | DRG 872 ==
LOC: ED 08:29 → EDINP 11:27 → SUATTDRO 11:27 → 2S 13:01 → 2W 08-28 18:24